=== PATIENT | female | born 1950 | race Caucasian/White ===

== ENCOUNTER 2025-05-07 08:03 | Inpatient (IN) | payer MEDICARE, SELFPAY ==
[2025-05-07] VITALS (14 sets, daily range): BP systolic 122–149; BP diastolic 55–88; PULSE 100–121; RESP 16–40; TEMP 36.4–36.8; O2SAT 97–100; BMI 37.8; BMI 35.2
--- NOTE | 2025-05-07 08:14 | EKG12_ITS ---
Test Reason : sob Blood Pressure : */* mmHG Vent. Rate : 113 BPM Atrial Rate : 113 BPM P-R Int : 156 ms QRS Dur : 104 ms QT Int : 308 ms P-R-T Axes : 67 12 154 degrees QTcB Int : [address] & T wave abnormality, consider lateral ischemia Abnormal ECG Confirmed by NEGRO LAIRD, DEREK ([id number]), continuity editor PARISH SINHA ([id number]) on 05/08/2025 1:06:52 PM Referred By: Confirmed By: DEREK TOM MD
--- NOTE | 2025-05-07 08:16 | ED.VIS.DYS ---
HPI History of Present Illness Chief Complaint: Shortness of Breath Narrative Narrative: 75-year-old female presents from [facility] with increasing shortness of breath. She states that she was admitted at [facility], she had a left hip surgery performed. She developed pneumonia. Since then, over the last 3 weeks she has had to wear her oxygen 2 L. Today, they had to bump it up to 4 L as she states she is having increased difficulty breathing. No fevers or chills, no cough. She states that approximately a month ago, they did a CAT scan of her chest and they found blockages in her heart. On review of her [facility] paperwork, she has a clot in the atrium as a complication of myocardial infarction. She states she takes Coumadin on a daily basis. She denies any history of COPD or CHF. PFS PFS Home Medications ?Medication ?Instructions ?Recorded ?Last Taken ?Type acetaminophen 325 mg capsule 650 mg PO Q4H PRN fever or pain 05/07/25 Unknown History acetaminophen 500 mg capsule 1,000 mg PO Q6H PRN fever or pain 05/07/25 Unknown History acetaminophen 650 mg rectal 650 mg WV Q4H PRN fever or pain 05/07/25 Unknown History suppository albuterol sulfate 2.5 mg/3 mL 2.5 mg continuous nebulization Q8H 05/07/25 Unknown History (0.083 %) solution for nebulization PRN shortness of breath or wheezing aluminum-mag hydroxide-simethicone 30 ml PO Q4H PRN indigestion 05/07/25 Unknown History 200 mg-200 mg-20 mg/5 mL oral susp (Antacid M) amlodipine 5 mg tablet 5 mg PO DAILY 05/07/25 Unknown History aspirin 81 mg capsule 81 mg PO DAILY 05/07/25 Unknown History atorvastatin 80 mg tablet (Lipitor) 80 mg PO QHS 05/07/25 Unknown History bisacodyl 10 mg rectal suppository 10 mg WV DAILY PRN constipation 05/07/25 Unknown History cholecalciferol (vitamin D3) 1,250 1,250 mcg PO SA 05/07/25 Unknown History mcg (50,000 unit) capsule cyanocobalamin (vitamin B-12) 1,000 mcg PO DAILY 05/07/25 Unknown History 1,000 mcg capsule dextrose 40 % oral gel (Glucose 15 g PO Q15M PRN hypoglycemia 05/07/25 Unknown History Gel) ezetimibe 10 mg tablet 10 mg PO DAILY 05/07/25 Unknown History furosemide 20 mg tablet (Lasix) 20 mg PO DAILY 05/07/25 Unknown History glucagon 1 mg injection kit 1 mg IM PRN PRN hypoglycemia 05/07/25 Unknown History guaifenesin 200 mg/5 mL oral liquid 400 mg PO Q4H PRN cough 05/07/25 Unknown History hydroxyzine HCl 25 mg tablet 25 mg PO Q6H PRN anxiety 05/07/25 Unknown History insulin glargine 100 unit/mL (3 32 unit subcut .QAM 05/07/25 Unknown History mL) subcutaneous pen (Lantus Solostar U-100 Insulin) insulin lispro 100 unit/mL 1 unit subcut ACHS sliding scale 05/07/25 Unknown History subcutaneous cartridge insulin lispro 100 unit/mL 3 unit subcut TID 05/07/25 Unknown History subcutaneous cartridge magnesium hydroxide 400 mg/5 mL 30 ml PO DAILY PRN constipation 05/07/25 Unknown History oral suspension (Milk of Magnesia) metoprolol tartrate 50 mg tablet 50 mg PO BID 05/07/25 Unknown History multivitamin with iron-mineral 1 tab PO DAILY 05/07/25 Unknown History ondansetron HCl 4 mg tablet 4 mg PO Q8H PRN nausea and vomiting 05/07/25 Unknown History oxycodone 5 mg capsule 5 mg PO Q6H PRN pain 05/07/25 Unknown History polyethylene glycol 3350 17 gram 17 g PO DAILY 05/07/25 Unknown History oral powder packet (Miralax) senna-docusate sodium capsule 1 cap PO BID 05/07/25 Unknown History sodium phosphates 19 gram-7 118 ml WV DAILY PRN constipation 05/07/25 Unknown History gram/118 mL enema (Auxab-Zp-Tng Enema) warfarin 1 mg tablet 1.5 mg PO DAILY 05/07/25 Unknown History Allergy/AdvReac Type Severity Reaction Status Date / Time Penicillins AdvReac Mild Nausea/Vom/ Verified 05/07/25 09:46 Diarrhea Social History Smoking Status: Never smoker ROS ROS ED ROS Narrative Review of systems is positive for increasing shortness of breath, gradual over the last 3 weeks worsening today. No fevers or chills. No cough. No exacerbating or alleviating factors. No nausea or vomiting. EXAM Physical Exam Narrative Exam Narrative: Afebrile. Vital signs noted. Positive tachypnea. Cardiovascular examination regular tachycardia. Positive wheezing bilaterally, expiratory. Abdomen soft and nontender with normoactive bowel sounds. Neurological examination nonfocal, nonlateralizing. Const Vital Signs: 05/07/25 08:04 05/07/25 08:09 05/07/25 08:24 Temperature 98.1 F Temperature Source Oral Pulse Rate 116 H 114 H Respiratory Rate 40 H 40 H Respiratory Effort Short of Breath Respiratory Pattern Tachypnea Normal Blood Pressure 149/81 H Blood Pressure Mean 103 Pulse Ox 97 Oxygen Delivery Method Nasal Cannula Nasal Cannula Oxygen Flow Rate (L/min) 4 4 05/07/25 08:52 05/07/25 09:00 05/07/25 09:45 Temperature Temperature Source Pulse Rate 102 H 109 H Respiratory Rate 32 H 16 Respiratory Effort Respiratory Pattern Blood Pressure 122/64 H 136/77 H Blood Pressure Mean 81 94 Pulse Ox 100 100 Oxygen Delivery Method Nasal Cannula Oxygen Flow Rate (L/min) MDM MDM MDM Narrative Medical decision making narrative: The differential diagnosis includes but not limited to COPD exacerbation versus CHF although patient does not have a history of this but she does have myocardial infarction. She may have a pulmonary embolism, however she is on warfarin currently. She may also have a pneumonia or pneumothorax. With her wheezing, she was given a DuoNeb aerosolized treatment, and chest x-ray obtained initially. EKG obtained and interpreted by myself independently as sinus tachycardia at 113 bpm without ectopy or acute ST changes. No STEMI. She does have slight/1 mm depression laterally, but states she is not having chest pain. I reviewed her laboratory work and she has a white count slightly elevated 11.4 with hemoglobin 10.9, platelet count normal at 219. INR is 1.7. In review of her medication list she only takes 1.5 mg daily. BUN of 17 and creatinine low at 0.66. Glucose elevated at 272 but she has a normal anion gap of 12 so I doubt diabetic ketoacidosis. BNP is elevated at 10,583. She was administered Lasix 40 mg intravenously. In review of her medication list again she usually takes 20 mg daily. Chest x-ray interpreted by myself independently does show mild CHF with left pleural effusion but no evidence of pneumothorax. I reviewed the radiology report which comments on multifocal atelectasis versus pneumonia. Hence, I do think that is probably more CHF than infectious pneumonia. Upon repeat examination at approximately 9:45 AM, she is less tachypneic and feels improved after the breathing treatment. She is satting at 100% on 4 L nasal cannula. She does not have an echocardiogram here. Given her elevated BNP, I do feel she requires admission. Patient will be discussed with the hospitalist. Patient was discussed with Dr. Kemp for admission to the PCU. She is in stable condition. History & Record Review Discussion w/independent historian: Patient Additional record(s) reviewed:: No prior records (No prior ED visit.) and Other ([facility] papers) Lab Data Attestation: I reviewed the patient's lab results. Labs: Laboratory Results - last 24 hr 05/07/25 08:50 WBC 11.4 H RBC 3.83 L Hgb 10.9 L Hct 36.0 L MCV 94.0 MCH 28.5 MCHC 30.3 L RDW Std Deviation 62.5 H RDW Coeff of Echo 18.2 H Plt Count 219 MPV 8.7 Immature Gran % (Auto) 0.300 Neut % (Auto) 89.8 H Lymph % (Auto) 5.3 L Weakley % (Auto) 4.0 Eos % (Auto) 0.2 Baso % (Auto) 0.4 Absolute Neuts (auto) 10.3 H Absolute Lymphs (auto) 0.61 L Nucleated RBC % 0 PT 20.1 H INR 1.7 Sodium 140 Potassium 4.7 Chloride 103 Carbon Dioxide 25.1 Anion Gap 12 BUN 17 Creatinine 0.66 L Estim Creat Clear Calc 63.31 Est GFR (MDRD) Non-Af 92 BUN/Creatinine Ratio 25.8 H Glucose 272 H Calcium 8.7 [place] [address] H Radiography Chest X-Ray - ED: 1 View, Read by ED Physician, Read by Radiologist, CHF and Left Effusion Diagnostic Testing: Clinical Impression(s) from Imaging Studies Chest X-Ray 05/07/25 08:54 IMPRESSION: Multifocal lung disease may be atelectasis or pneumonia. Suspect a left pleural effusion Reading Location: [id number] Discharge Plan Triage Chief Complaint: Shortness of Breath ED Provider: Nas Schultz Dx/Rx/DC Orders Clinical Impression: CHF (congestive heart failure), Dyspnea, Increased oxygen demand Prescriptions: No Action ondansetron HCl 4 mg tablet 4 mg PO Q8H PRN (Reason: nausea and vomiting) hydroxyzine HCl 25 mg tablet 25 mg PO Q6H PRN (Reason: anxiety) albuterol sulfate 2.5 mg /3 mL (0.083 %) solution for nebulization 2.5 mg continuous nebulization Q8H PRN (Reason: shortness of breath or wheezing) senna-docusate sodium Capsule 1 cap PO BID warfarin 1 mg tablet 1.5 mg PO DAILY metoprolol tartrate 50 mg tablet 50 mg PO BID atorvastatin [Lipitor] 80 mg tablet 80 mg PO QHS acetaminophen 500 mg capsule 1,000 mg PO Q6H PRN (Reason: fever or pain) insulin lispro 100 unit/mL cartridge 3 unit subcut TID insulin lispro 100 unit/mL cartridge 1 unit subcut ACHS insulin glargine [Lantus Solostar U-100 Insulin] 100 unit/mL (3 mL) insulin pen 32 unit subcut .QAM cyanocobalamin (vitamin B-12) 1,000 mcg capsule 1,000 mcg PO DAILY polyethylene glycol 3350 [Miralax] 17 gram powder in packet 17 g PO DAILY multivitamin with iron-mineral Tablet 1 tab PO DAILY ezetimibe 10 mg tablet 10 mg PO DAILY cholecalciferol (vitamin D3) 1,250 mcg (50,000 unit) capsule 1,250 mcg PO SA aspirin 81 mg capsule 81 mg PO DAILY amlodipine 5 mg tablet 5 mg PO DAILY furosemide [Lasix] 20 mg tablet 20 mg PO DAILY oxycodone 5 mg capsule 5 mg PO Q6H PRN (Reason: pain) alum-mag hydroxide-simeth [Antacid M] 200-200-20 mg/5 mL suspension 30 ml PO Q4H PRN (Reason: indigestion) guaifenesin 200 mg/5 mL liquid 400 mg PO Q4H PRN (Reason: cough) magnesium hydroxide [Milk of Magnesia] 400 mg/5 mL suspension 30 ml PO DAILY PRN (Reason: constipation) dextrose [Glucose Gel] 40 % gel 15 g PO Q15M PRN (Reason: hypoglycemia) Rx Instructions: until symptoms of low blood sugar are controlled glucagon 1 mg kit 1 mg IM PRN PRN (Reason: hypoglycemia) acetaminophen 325 mg capsule 650 mg PO Q4H PRN (Reason: fever or pain) bisacodyl 10 mg suppository 10 mg WV DAILY PRN (Reason: constipation) Txvqa-[id number]-Wmb Enema 19-7 gram/118 mL enema 118 ml WV DAILY PRN (Reason: constipation) acetaminophen 650 mg suppository 650 mg WV Q4H PRN (Reason: fever or pain) Primary Care Provider: Jillian Tomlinson Referrals: Jillian Tomlinson MD [Primary Care Provider, Geriatrics] Print Language: Colombian
--- OUTSIDE RECORDS SUMMARY | 2025-05-07 08:31 | XMS RPT_ITS | CCD ---
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 Name Role Phone Unavailable Unavailable Unavailable Lucian Mott Unavailable Unavailable Lucian Mott Unavailable Unavailable Jaime Shine Primary Care Provider SYSTEM, PROVIDER NOT IN Attending UnavailJAIME Martinez Primary Care Unavailable Jaime Shine MD Primary Care Provider Enedina James CNP Primary Care Provid er NO, PHYSICIAN Primary Care Unavailable AMBROCIO ALEXANDER Attending Unavailable ENEDINA JAMES Primary Care Unavail able JAIME SHINE Primary Care Unavailable VAISHALI MENDEZ Referring Unavailab Emir Bo MD Primary Care Provider SELF, SELF Referring Unavailable EMIR OROZCO Attending Unavailable EMIR OROZCO Primary Care Unavailable No, Physician Primary Care Provider Unavailabl CHRISTIANO Padilla Attending Unavailable LAURA, PHYSICIAN Primary Care Unavailable CHRISTIANO FLETCHER Attending Unavailable ENEDINA JAMES Primary Care Unavail able ELHAM CONNORS Admitting Unavailable EMIR CADE Referring Unavailable RAMIRO TURPIN Attending Unavailable TOBIAS DIOR Consulting Unavailable Jillian Kc Attending Unavailable Jillian Kc Attending Unavailable Allergies Allergy Classification Reported Allergen(s) Allergy Type Date of Onset Reaction(s) Facility (16 sources) Penicillins; Translations: [PENICILLINS] Propensity to adverse reactions to drug 0 GI Intolerance, Dyspepsia [facility] (15 sources) POISON RHONDA EXTRACT; Translations: [POISON RHONDA EXTRACT] Drug Allergy 0 [facility] (14 sources) strawberry allergenic extract; Translations: [STRAWBERRY] Drug Allergy 0 [facility] (10 sources) Poison [place] Extract; Translations: [POISON [place] EXTRACT] Propensity to adverse reactions to drug 2 Unknown [facility] (1 source) [place]x Propensity to adverse reactions to drug 4 [facility] (1 source) [place] Propensity to adverse reactions to drug 0 [facility] (1 source) Extract Of Poison [place] Propensity to adverse reactions to drug 2 Rash [facility] Medications Current Medications Medication Drug Class(es) Dates Sig (Normalized) Sig (Original) acetaminophen 250 mg / aspirin 250 mg / caffeine 65 mg oral tablet (7 sources) Platelet Aggregation Inhibitor, Nonsteroidal Anti-inflammatory Drug, Central Nervous System Stimulant, Methylxanthine take 1 tablet by mouth every six hours as needed for pain aspirin-acetamin ophen-caffeine (EXCEDRIN MIGRAINE) 250-250-65 mg per tablet Take 1 (one) tablet by mouth every 6 (six) hours as needed for pain . Active amLODIPine 10 mg oral tablet (16 sources) Dihydropyridine Calcium Channel Hanna Start: 06-07-2022 End: 06-08-2022 amLODIPine (NORVASC) tablet 5 mg Start: 04-18-2020 End: 05-18-2020 take 1 tablet by mouth once daily amLODIPine 10 MG tablet Indications: Essential hypertension Take 1 tablet by mouth daily. 90 tablet 3 03/31/2024 Active Start: 04-17-2020 End: 04-18-2020 take 10 mg by mouth once daily 10 mg, Oral, Daily, [facility]ir [facility] dose on Thu04/17/20 at 2230 End: 03-31-2024 take 4 tablets by mouth once daily amLODIPine (Norvasc) 2.5 MG tablet Take 4 tablets by mouth daily. 03/31/2024 Discontinued (Reorder) aspirin 325 mg oral tablet (6 sources) Platelet Aggregation Inhibitor, Nonsteroidal Anti-inflammatory Drug Start: 06-08-2022 End: 07-09-2022 take 1 tablet by mouth once daily aspirin 325 MG tablet Take 1 (one) tablet (325 mg total) by mouth daily Start: 06/09/22. 30 tablet 1 06/09/2022 07/09/2022 Active Start: 06-07-2022 End: 06-07-2022 take 81 mg by mouth once daily 81 mg, Oral, Daily, [facility]ir [facility] dose on 06/07/22 at 0900 DO NOT CRUSH OR CHEW. Start: 06-06-2022 End: 06-06-2022 aspirin chewable tablet 324 mg Start: 04-18-2020 End: 04-18-2020 take 81 mg by mouth once daily 81 mg, Oral, Daily, Fir [facility] dose on 04/18/20 at 1800 DO NOT CRUSH OR CHEW. atorvastatin 40 mg oral tablet (4 sources) HMG-CoA Reductase Inhibitor Start: 06-06-2022 End: 07-08-2022 take 1 tablet by mouth once daily atorvastatin (LIPITOR) 40 MG tablet Take 1 (one) tablet (40 mg total) by mouth nightly . 30 tablet 1 06/08/2022 Active carvedilol 25 mg oral tablet (17 sources) alpha-Adrenergic Hanna, beta-Adrenergic Hanna Start: 03-31-2024 End: 03-31-2024 take 1 tablet by mouth twice daily carveDILOL 25 MG tablet Indications: Essential hypertension Take 1 tablet by mouth 2 times daily. 180 tablet 3 03/31/2024 Active Start: 06-07-2022 End: 06-08-2022 take 6.25 mg by mouth twice daily at mealtime 6.25 mg, Oral, 2 times daily, First dose on 06/07/22 at 0900 Give carvedilol with food to reduce risk of hypotension / dizziness. Separate from admin of NGOZI inhibitors by two hours. Start: 04-18-2020 End: 05-29-2020 take 1 tablet by mouth twice daily carvediloL (COREG) 12.5 MG tablet Take 1 (one) tablet (12.5 mg total) by mouth 2 (two) times a day . 60 tablet 0 04/18/2020 05/29/2020 Discontinued (Error) Start: 04-17-2020 carvediloL (CO REG) tablet 25 mg cephalexin 500 mg oral capsule (3 sources) Cephalosporin Antibacterial Start: 06-08-2022 End: 06-11-2022 take 1 capsule by mouth every eight hours cephALEXin (KEFLEX) 500 MG capsule Take 1 (one) capsule (500 mg total) by mouth every 8 (eight) hours for 3 days . 9 capsule 0 06/08/2022 06/11/2022 Active cholecalciferol 0.05 mg oral tablet (10 sources) Vitamin D cholecalciferol, vitamin D3, 50 mcg (2,000 unit) Tab Take 1 (one) tablet (2,000 Units total) by mouth . Active take 1 tablet by mouth once linette y cholecalciferol 50 MCG (2000 UNIT) tablet Take 1 tablet by mouth daily. Active cloNIDine hydrochloride 0.1 mg oral tablet (12 sources) Central alpha-2 Adrenergic Agonist Start: 06-08-2022 End: 03-31-2024 take 1 tablet by mouth four times daily cloNIDine 0.1 MG tablet Indications: Essential hypertension Take 1 tablet by mouth 4 times daily. 360 tablet 3 03/31/2024 Active ezetimibe 10 mg oral tablet (8 sources) Dietary Cholesterol Absorption Inhibitor Start: 03-31-2024 End: 03-31-2024 take 1 tablet by mouth once daily Ezetimibe 10 MG tablet Indications: Mixed hyperlipidemia Take 1 tablet by mouth daily. 90 tablet 3 03/31/2024 Active hydroCHLOROthiazide 12.5 mg / lisinopril 20 mg oral tablet (14 sources) Thiazide Diuretic, Angiotensin Converting Enzyme Inhibitor Start: 05-29-2020 End: 03-31-2024 take 1 tablet by mouth once daily lisinopril-hydrochl orothiazide 20-12.5 MG per tablet Indications: Essential hypertension Take 1 tablet by mouth daily. 90 tablet 3 03/31/2024 Active End: 05-29-2020 take 1 tablet by mouth twice daily lisinopriL-hydrochlorothiazide (PRINZIDE,ZESTORETIC) 20-12.5 mg per tablet Take 1 tablet by mouth 2 (two) times a day . 0 05/29/2020 Discontinued (Dose adjustment) ibuprofen 200 mg oral tablet (9 sources) Nonsteroidal Anti-inflammatory Drug take 2 tablets by mouth every six hours as needed for pain ibuprofen (ADVIL,MOTRIN) 200 MG tablet Take 2 (two) tablets (400 mg total) by mouth every 6 (six) hours as needed for pain . Active 3 ml insulin isophane, human 70 unt/ml / insulin, regular, human 30 unt/ml pen injector (12 sources) Insulin Start: 024 inject 6 [IU] by subcutaneous injection before breakfast insulin NPH and regular human (NovoLIN 70-30 FlexPen U-100) 100 unit/mL (70-30) InPn Indications: Well controlled type 2 diabetes mellitus (HCC) Inject under the skin 6 units before breakfast and 4 units before dinner . 15 mL 11 03/10/2024 Active Start: 04-09-2023 insulin NPH an d regular human 100 unit/mL (70-30) InPn Take 12 units before breakfast and 8 units before dinner. Needs Reli-on pens . 15 mL 5 04/09/2023 Active Start: 02-06-2023 End: 04-09-2023 insulin NPH and regular colten n 100 unit/mL (70-30) InPn Take 12 units before breakfast and 8 units before dinner. Needs Reli-on pens . 15 mL 5 02/06/2023 04/09/2023 Discontinued (Reorder (Suppress CancelRx Message to Pharmacy)) Start: 02-06-2023 insulin NPH an d regular human 100 unit/mL (70-30) InPn Take 12 units before breakfast and 8 units before dinner. Needs Reli-on pens . 15 mL 5 02/06/2023 Active Start: 11-25-2022 End: 02-06-2023 insulin NPH and regular colten n 100 unit/mL (70-30) InPn Take 6 units before breakfast and 4 units before dinner. Needs Reli-on pens . 15 mL 5 11/25/2022 02/06/2023 Discontinued (Reorder (Suppress CancelRx Message to Pharmacy)) Start: 11-25-2022 insulin NPH an d regular human 100 unit/mL (70-30) InPn Take 6 units before breakfast and 4 units before dinner. Needs Reli-on pens . 15 mL 5 11/25/2022 Active Start: 06-08-2022 insulin NPH an d regular human (NovoLIN 70-30 FlexPen U-100) 100 unit/mL (70-30) InPn Inject 20 units before breakfast and 16 units before dinner. Needs Reli-on 70/30 pens . 15 mL 5 06/08/2022 Active levETIRAcetam 500 mg oral tablet (12 sources) Start: 06-07-2022 End: 03-31-2024 take 1 tablet by mouth twice daily levETIRAcetam 500 MG tablet Indications: Seizure disorder Take 1 tablet by mouth 2 times daily. 60 tablet 03/31/2024 Active metFORMIN hydrochloride 1000 mg oral tablet (15 sources) Biguanide Start: 06-07-2022 End: 06-08-2022 take 30 mL by mouth twice daily at mealtime 1,000 mg, Oral, 2 times daily with meals, First dose on 06/07/22 at 0800 Note: Guidelines recommend that metformin be held for 48 hours after use of iodinated contrast media (IVP Dye) in patients with an eGFR less than 30 ml/min/1.73m2, with a history of hepatic disease, alcoholism or heart failure, or in patients who will receive intra-arterial iodinated contrast. Start: 04-18-2020 End: 05-11-2025 take 1 tablet by mouth twice daily at mealtime metFORMIN (GLUCOPHAGE) 1000 MG tablet Take 1 (one) tablet (1,000 mg total) by mouth 2 (two) times a day with meals . 180 tablet 3 05/16/2024 05/11/2025 Active take 2 tablets by mo uth twice daily at mealtime metFORMIN 500 MG tablet Take 2 tablets by mouth 2 times daily with meals. Active Multiple Vitamin (Multi-Vitamin) tablet (1 source) take 1 tablet by mouth once daily Multiple Vitamin (Multi-Vitamin) tablet Take 1 tablet by mouth daily. Active multivitamin (THERAGRAN) per tablet (11 sources) take 1 tablet by mouth once daily multivitamin (THERAGRAN) per tablet Take 1 (one) tablet by mouth daily (Women's 50+ with soy) . Active take 1 tablet by mouth once linette y multivitamin (THERAGRAN) per tablet Take 1 (one) tablet by mouth daily (Women's 50+ with soy) . 0 Active take 1 tablet by mouth once linette y multivitamin (THERAGRAN) per tablet Take 1 (one) tablet by mouth daily . 0 Active take 1 tablet by mouth once linette y multivitamin (THERAGRAN) per tablet Take 1 (one) tablet by mouth daily . 0 take 1 tablet by mouth once linette y multivitamin (THERAGRAN) per tablet Take 1 tablet by mouth daily . 0 Active Completed/Discontinued Medications Medication Drug Class(es) Dates Sig (Normalized) Sig (Original) acetaminophen 325 mg oral tablet (11 sources) Start: 06-06-2022 End: 06-08-2022 take 1 tablet by mouth every four hours as needed for pain and headache 650 mg, Oral, Every 4 hours PRN, mild pain, fever 100.4 F or greater, headaches, Starting on Thu06/06/22 at 2134 take 1 tablet by tacho th every six hours as needed acetaminophen (TYLENOL) 325 MG tablet Ta ke 1 (one) tablet (325 mg total) by mouth every 6 (six) hours as needed . Active take 500 mg by mouth every six hours as needed ACETAMINOPHEN ORAL Take 500 mg by mouth every 6 (six) hours as needed . 0 Active acetaminophen 325 mg / oxyCODONE hydrochloride 5 mg oral tablet (1 source) Opioid Agonist Start: 06-06-2022 End: 06-08-2022 take 1-2 tablets by mouth every four hours as needed 1-2 tablet, Oral, Every 4 hours PRN (may repeat), moderate to severe pain, Starting on Thu06/06/22 at 2134 Initiate with 1 tablet oral every 4 hours prn moderate to severe pain. For unrelieved pain, may repeat 1 tablet within 60 minutes of initial dose. If pain is RELIEVED after repeat dose, change to two tablets of 5/325 mg every 4 hours prn moderate to severe pain. If pain is UNrelieved after repeat dose, or patient requires dose reduction, call physician. albuterol 0.833 mg/ml / ipratropium bromide 0.167 mg/ml inhalant solution (1 source) Anticholinergic, beta2-Adrenergic Agonist Start: 04-17-2020 End: 04-18-2020 take 3 mL by inhalation every two hours as needed 3 mL, Inhalation, Every 2 hour PRN (RT), wheezing, shortness of breath, Starting Tu04/17/20 at 2149 aluminum hydroxide 40 mg/ml / magnesium hydroxide 40 mg/ml / simethicone 4 mg/ml oral suspension (1 source) Start: 06-06-2022 End: 06-08-2022 take 30 mL by mouth every four hours as needed 30 mL, Oral, Every 4 hours PRN, indigestion, Starting on Thu06/06/22 at 2134 apixaban 5 mg oral tablet (2 sources) Factor Xa Inhibitor Start: 04-18-2020 End: 05-29-2020 take 1 tablet by mouth twice daily apixaban (ELIQUIS) 5 mg Tab Take 1 (one) tablet (5 mg total) by mouth 2 (two) times a day . 60 tablet 11 05/18/2020 05/29/2020 Discontinued bisacodyl 10 mg rectal suppository (1 source) Stimulant Laxative Start: 06-07-2022 End: 06-08-2022 take 10 mg rectal route once daily as needed for constipation 10 mg, Rectal, Daily PRN, constipation, Starting on 06/07/22 at 0900 Try oral medications first for constipation. &nbs p;Try rectal medication if oral meds are ineffective, not tolerated, or not ordered. ceFAZolin 1000 mg injection (1 source) Cephalosporin Antibacterial Start: 06-07-2022 End: 06-08-2022 take 1000 mg intravenously every twelve hours ceFAZolin (ANCEF) IVPB 1 g (premix) cefTRIAXone (ROCEPHIN) 2000 mg in sodium chloride (NS) 0.9% 50 mL MBP (1 source) Start: 06-06-2022 End: 06-06-2022 cefTRIAXone (ROCEPHIN) 2000 mg in sodium chloride (NS) 0.9% 50 mL MBP clopidogrel 75 mg oral tablet (1 source) P2Y12 Platelet Inhibitor Start: 06-07-2022 End: 06-07-2022 clopidogreL (PLAVIX) tablet 75 mg 25 ml dilTIAZem hydrochloride 5 mg/ml injection (1 source) Calcium Channel Hanna Start: 04-17-2020 End: 04-17-2020 diltiazem (CARDIZEM) injection 20.5 mg docusate sodium 50 mg / sennosides, jail 8.6 mg oral tablet (1 source) Start: 06-06-2022 End: 06-08-2022 take 1 tablet by mouth twice daily 1 tablet, Oral, 2 times daily, First dose on Thu06/06/22 at 2135 NOT for abdominal surgery patients. Ho ld for loose stools. Do Not Crush or Chew if administering orally due to bitter taste. May be crushed if given via tube. 0.4 ml enoxaparin sodium 100 mg/ml prefilled syringe (1 source) Low Molecular Weight Heparin Start: 06-07-2022 End: 06-08-2022 enoxaparin (LOVENOX) syringe 40 mg glimepiride 4 mg oral tablet (5 sources) Sulfonylurea Start: 04-18-2020 End: 06-08-2022 take 4 mg by mouth twice daily 4 mg, Oral, 2 times daily, First dose on Thu06/06/22 at 2230 500 ml glucose 50 mg/ml / potassium chloride 0.02 meq/ml / sodium chloride 4.5 mg/ml injection (1 source) Start: 06-06-2022 End: 06-07-2022 125 mL/hr, Intravenous, Continuous PRN, MAINTENANCE IV Fluid (once BG is less than 250 mg/dL) AND Potassium is LESS than 5, Starting on Thu06/06/22 at 2134 Discontinue INITIAL IV Fluid after starting this MAINTENANCE IV Fluid. Do NOT hold infusion for elevated blood glucose without contacting physician. Check with physician if patient is ESRD. 1 ml heparin sodium, porcine 5000 unt/ml injection (1 source) Unfractionated Heparin, Anti-coagulant Start: 04-17-2020 End: 04-18-2020 inject 5000 [IU] by subcutaneous injection every eight hours 5,000 Units, Subcutaneous, Every 8 hours scheduled, First dose on Thu04/17/20 at 2200 Notify physician if patient refuses. hydrALAZINE hydrochloride 25 mg oral tablet (4 sources) Arteriolar Vasodilator Start: 05-29-2020 End: 06-08-2022 take 1 tablet by mouth three times daily hydrALAZINE (APRESOLINE) 25 MG tablet Take 1 (one) tablet (25 mg total) by mouth 3 (three) times a day . 270 tablet 3 05/29/2020 06/08/2022 Discontinued (Stop Taking at Discharge) Start: 04-17-2020 End: 04-18-2020 take 10 mg intravenous route every six hours as needed 10 mg, Intravenous, Every 6 hours PRN, SBP > 160, Starting Thu04/17/20 at 2149 insulin glargine 100 unt/ml injectable solution (5 sources) Insulin Analog Start: 06-07-2022 End: 06-08-2022 insulin glargine (LANTUS) injection 24 Units Start: 06-07-2022 End: 06-07-2022 insulin glargine (LANTUS) injection 16 Units End: 06-08-2022 inject 20 [IU] by subcutaneous injection once daily insulin glargine (LANTUS) 100 unit/mL injection Inject 20 (twenty) Units under the skin nightly . 0 06/08/2022 Discontinued (Stop Taking at Discharge) insulin lispro 100 unt/ml injectable solution (6 sources) Insulin Analog Start: 06-07-2022 End: 06-08-2022 insulin lispro (AdmeLOG,HumaLOG) injection 0-15 Units Start: 04-18-2020 End: 04-18-2020 inject 1 dose by subcutaneous injection three times daily before mealtime 0-30 Units, Subcutaneous, 3 times daily before meals, First dose on Thu04/18/20 at 0730 Dose should be given 10-15 minutes before a meal. If poor oral intake, nausea or blood glucose value < 80 before meal, give of the dose (rounded up to nearest unit) immediately after meal completed. If patient skipping meal, hold base prandial dose and continue to use corrective insulin as ordered. Once diet resumed, total base prandial + corrective doses may be given. Prandial Insulin Dosing Method: NO Prandial Dose - Corrective Scale ONLY Corrective Insulin Regimen (select desired scale to cover BG result): Normal Sensitivity Scale For Downtime Calculator, use: Insulin SC MEALtime PREprandial Start: 04-17-2020 End: 04-18-2020 inject 1 dose by subcutaneous injection once daily 0-15 Units, Subcutaneous, At bedtime, First dose on Thu04/17/20 at 2150 For Nightly Insulin Dose Coverage, use: CORRECTIVE (Only) for BG greater than 300 Nightly CORRECTIVE Dose Method: Specific Corrective Dose Nightly Specific CORRECTIVE dose (units of insulin): 2 For Downtime Calculator, use: Insulin SC NIGHTtime 100 ml insulin, regular, human 1 unt/ml injection (2 sources) Insulin Start: 06-06-2022 End: 06-07-2022 take 0.1-30 [IU] intravenously every hour, then take 0.1-30 mL intravenously every hour 0.1-30 Units/hr (0.1-30 mL/hr), Intravenous, Titrated, Starting on Thu06/06/22 at 2135 Titrate insulin IV per MAR calculator to coincide with the scheduled point of care glucose results. For Downtime Calculator, use: Insulin Infusion DKA Start: 06-06-2022 End: 06-06-2022 insulin regular (HumuLIN R, NovoLIN R) injection 8 Units iopamidoL (ISOVUE-370) 370 mg iodine /mL (76 %) injection 75 mL (1 source) Start: 06-06-2022 End: 06-06-2022 iopamidoL (ISOVUE-370) 370 mg iodine /mL (76 %) injection 75 mL labetaloL (NORMODYNE) injection 10 mg (1 source) Start: 06-06-2022 End: 06-08-2022 take 10 mg intravenously every two hours as needed labetaloL (NORMODYNE) injection 10 mg lisinopril 40 mg oral tablet (2 sources) Angiotensin Converting Enzyme Inhibitor Start: 04-18-2020 End: 05-29-2020 take 1 tablet by mouth once daily lisinopriL (PRINIVIL,ZESTRIL) 40 MG tablet Take 1 (one) tablet (40 mg total) by mouth daily . 30 tablet 0 04/18/2020 05/29/2020 Discontinued (Patient's Request) lisinopriL (PRINIVIL,ZESTRIL) 20 mg, hydroCHLOROthiazide (HYDRODIURIL) 12.5 mg COMBO (1 source) Start: 06-07-2022 End: 06-08-2022 lisinopriL (PRINIVIL,ZESTRIL) 20 mg, hydroCHLOROthiazide (HYDRODIURIL) 12.5 mg COMBO magnesium hydroxide 80 mg/ml oral suspension (1 source) Start: 06-06-2022 End: 06-08-2022 take 2400 mg by mouth once daily as needed for constipation 2,400 mg (30 mL), Oral, Daily PRN, constipation, Starting on Thu06/06/22 at 2134 If no bowel movement in 24 hours after Sennosides (SENNA) administration. 50 ml magnesium sulfate 40 mg/ml injection (1 source) Start: 04-18-2020 End: 04-18-2020 magnesium sulfate 2 g in sterile water (SW) 50 mL IVPB melatonin 5 mg oral tablet (1 source) Start: 06-06-2022 End: 06-08-2022 take 5 mg by mouth once daily as needed for sleep 5 mg, Oral, Nightly PRN, Sleep, Starting on Thu06/06/22 at 2134 If still awake in 1 hour proceed to trazodone (Desyrel) metoprolol tartrate 25 mg oral tablet (1 source) beta-Adrenergi c Hanna Start: 04-17-2020 End: 04-18-2020 take 25 mg by mouth twice daily 25 mg, Oral, 2 times daily, First dose on Thu04/17/20 at 2230 1 ml morphine sulfate 2 mg/ml cartridge (1 source) Opioid Agonist Start: 06-06-2022 End: 06-08-2022 take 2-4 mg intravenously every three hours as needed 2-4 mg, Intravenous, Every 3 hours PRN (may repeat), moderate to severe pain, Starting on Thu06/06/22 at 2134 Initiate with 2 mg IV every 3 hours prn moderate to severe pain. For unrelieved pain, may repeat 2 mg within 30 minutes of initial dose. If pain is RELIEVED after repeat dose, change to 4 mg every 3 hours prn moderate to severe pain. If pain is UNrelieved after repeat dose, or patient requires dose reduction, call physician. May use IV for breakthrough pain or if unable to tolerate enteral routes. multivitamin (THERAGRAN) per tablet 1 tablet (1 source) Start: 06-07-2022 End: 06-08-2022 take 1 tablet by mouth once daily 1 tablet, Oral, Daily, First dose on 06/07/22 at 0900 naloxone (NARCAN) injection 0.1 mg (1 source) Start: 06-06-2022 End: 06-08-2022 naloxone (NARCAN) injection 0.1 mg nitroglycerin 0.4 mg sublingual tablet (1 source) Nitrate Vasodilator Start: 06-06-2022 End: 06-08-2022 0.4 mg, Sublingual, Every 5 min PRN, chest pain, Starting on Thu06/06/22 at 2134 For chest pain. May give up to 3 doses. Call physician for chest pain unrelieved by Nitroglycerin, or recurrent chest pain. DO NOT CRUSH OR CHEW. 2 ml ondansetron 2 mg/ml injection (1 source) Serotonin-3 Receptor Antagonist Start: 04-17-2020 End: 04-18-2020 take 4 mg intravenous route every six hours as needed 4 mg, Intravenous, Every 6 hours PRN, nausea, vomiting, Starting 04/17/20 at 2149 ondansetron (ZOFRAN-ODT) disintegrating tablet 4 mg (1 source) Start: 06-06-2022 End: 06-08-2022 take 1 tablet by mouth every six hours as needed for nausea and vomiting ondansetron (ZOFRAN-ODT) disintegrating tablet 4 mg perflutren lipid microspheres (DEFINITY) 0.143 mg/mL solution 0-10 mL of mixture (1 source) Start: 04-17-2020 End: 04-18-2020 0-10 mL of mixture, Intravenous, Once in imaging, contrast, IF suboptimal echo, Starting 04/17/20 at 2149, For 48 hours Prepare syringe by withdrawing 1.3 mL of perflutren (DEFINITY) from the 2ml vial. Further dilute the 1.3 mL of perflutren with Sodium Chloride (NS) 0.9% to total volume of 10 ml. Chart total ML OF MIXTURE given to patient. potassium bicarbonate 25 meq effervescent oral tablet (1 source) Start: 04-17-2020 End: 04-17-2020 potassium bicarbonate (K-LYTE) 25 MEQ disintegrating tablet 50 mEq microencapsulated potassium chloride 20 meq extended release oral tablet (4 sources) Start: 06-08-2022 End: 06-08-2022 potassium chloride SA (K-DUR,KLOR-CON) CR tablet 20 mEq Start: 06-06-2022 End: 06-07-2022 20 mEq, Intravenous, at 100 mL/hr, Every 1 hour if indicated in MAR calculator, First dose on Thu06/06/22 at 2200 DKA Potassium Corrective Scale for Potassium LESS THAN 4 Check with physician if patient is ESRD. VESICANT Start: 04-18-2020 End: 04-18-2020 potassium chloride SA (K-DUR ,KLOR-CON) CR tablet 40 mEq Start: 04-17-2020 End: 04-17-2020 potassium chloride SA (K-DUR ,KLOR-CON) CR tablet 20 mEq 1000 ml potassium chloride 0.02 meq/ml / sodium chloride 4.5 mg/ml injection (1 source) Start: 06-06-2022 End: 06-07-2022 take 250 mL intravenously every hour 250 mL/hr, Intravenous, Continuous, Starting on Thu06/06/22 at 2135, For 48 hours When blood glucose LESS than 250 mg/dL: Discontinue this INITIAL IV fluid AND switch to MAINTENANCE IV fluid sennosides, jail 8.6 mg oral tablet (1 source) Start: 06-06-2022 End: 06-08-2022 take 1 tablet by mouth twice daily as needed for constipation 8.6 mg (1 tablet), Oral, 2 times daily PRN, constipation, Starting on Thu06/06/22 at 2134 Sodium Chloride (4 sources) Start: 06-06-2022 End: 06-08-2022 sodium chloride (PF) (NS) flush 5 mL Start: 06-06-2022 End: 06-07-2022 sodium chloride 0.9% (NS) Start: 06-06-2022 End: 06-06-2022 sodium chloride 0.9% (NS) marylin augustin 500 mL Start: 04-17-2020 End: 04-18-2020 sodium chloride 0.9% (NS) traZODone hydrochloride 50 mg oral tablet (1 source) Serotonin Reuptake Inhibitor Start: 06-06-2022 End: 06-08-2022 take 50 mg by mouth once daily as needed for sleep 50 mg, Oral, Nightly PRN, sleep, Starting on Thu06/06/22 at 2134 To be administered 1 hour after melatonin if still awake. May repeat x 1 dose in 30 minutes if still awake. Problems Active Problems Problem Classification Problem Date Documented Da te Episodic/Chronic Acute cerebrovascular disease (2 sources) Ischemic stroke; Translations: [Cerebral infarction, unspecified] Chronic Diabetes mellitus with complications (16 sources) Type 2 diabetes mellitus; Translations: [Type 2 diabetes mellitus with hyperglycemia] Onset: 05-29-2020 Resolved: 03-31-2024 Chronic Diabetes mellitus without complication (20 sources) Type 2 diabetes mellitus without complication; Translations: [Diabetes mellitus] Onset: 03-31-2024 Resolved: 03-31-2024 05-29-2020 Chronic Diabetes mellitus without complication (1 source) Hyperglycemia; Translations: [Hyperglycemia, unspecified] Episodic Disorders of lipid metabolism (4 sources) Mixed hyperlipidemia; Translations: [Mixed hyperlipidemia] Onset: 03-31-2024 03-31-2024 Chronic Epilepsy; convulsions (15 sources) Localization-relate d epilepsy; 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, not intractable, without status epilepticus] Onset: 06-06-2022 Resolved: 03-31-2024 Chronic Essential hypertension (19 sources) Hypertensive disorder; Translations: [Essential hypertension] Onset: 03-31-2024 Resolved: 03-31-2024 05-29-2020 Chronic Fluid and electrolyte disorders (1 source) Hypokalemia; Translations: [Hypokalemia] Episodic Fracture of neck of femur (hip) (1 source) Fracture of unspecified part of neck of left femur, initial encounter for closed fracture; Translations: [Closed displaced fracture of left femoral neck (HCC)] Onset: 04-08-2025 Episodic Hypertension with complications and secondary hypertension (4 sources) Hypertensive urgency ; Translations: [Hypertensive urgency] Onset: 04-17-2020 04-17-2020 Chronic Other aftercare (2 sources) emt intermediate (current) use of insulin; Translations: [detention (current) use of insulin] Onset: 05-29-2020 Episodic Other and ill-defined heart disease (1 source) Intracardiac thrombosis, not elsewhere classified; 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] Onset: 04-14-2025 Chronic Other and unspecified benign neoplasm (13 sources) Neoplasm of meninges; 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, unspecified] Onset: 06-08-2022 Resolved: 03-31-2024 Chronic Other and unspecified benign neoplasm (2 sources) Benign neoplasm of meninges, unspecified; 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, unspecified] Onset: 03-31-2024 Chronic Other circulatory disease (2 sources) Elevated blood-pressure reading, without diagnosis of hypertension; Translations: [Elevated blood-pressure reading, without diagnosis of hypertension] Onset: 02-17-2024 Episodic Other endocrine disorders (7 sources) Hypoglycemia; Translations: [Hypoglycemia, unspecified] Onset: 11-21-2022 Resolved: 03-31-2024 11-21-2022 Chronic Other nutritional; endocrine; and metabolic disorders (12 sources) Obesity; Translations: [Obesity, unspecified] Onset: 03-31-2024 05-29-2020 Chronic Past or Other Problems Problem Classification Problem Date Documented Da te Episodic/Chronic Cardiac dysrhythmias (13 sources) Tachycardia; Translations: [Tachycardia, unspecified] Onset: 05-29-2020 Resolved: 03-31-2024 05-29-2020 Episodic Urinary tract infections (11 sources) Acute urinary tract infection; Translations: [Urinary tract infection, site not specified] Onset: 06-06-2022 Episodic Results Test Name Value Interpretation Reference Range Facility Basic Metabolic Profile (BMP )on 04-25-2025 BUN/CRE 65.5 RATIO High 04-[address] [facility] Comment on above: Order Comment: 207.1 Performed By: #### L 501.5200, L100.0500, L500.2500, L300.3900 #### [facility] [address] [place], [address] Calcium [Mass/Vol] 8.4 mg/dL Normal 7.6-11.0 [facility] Comment on above: Order Comment: 207.1 Performed By: #### L 501.5200, L100.0500, L500.2500, L300.3900 #### [facility] [address] [place], [address] Chloride [Moles/Vol] 100 mmol/L Normal 98-108 [facility] Comment on above: Order Comment: 207.1 Performed By: #### L 501.5200, L100.0500, L500.2500, L300.3900 #### [facility] [address] [place], [address] CO2 [Moles/Vol] 23.4 mmol/L Normal 21.0-32.[address] [facility] Comment on above: Order Comment: 207.1 Performed By: #### L 501.5200, L100.0500, L500.2500, L300.3900 #### [facility] [address] [place], [address] Creatinine [Mass/Vol] 0.81 mg/dL Normal 0.70-1.[address] [facility] Comment on above: Order Comment: 207.1 Performed By: #### L 501.5200, L100.0500, L500.2500, L300.3900 #### [facility] [address] [place], [address] GAP 10 Normal 5-[address] [facility] Comment on above: Order Comment: 207.1 Performed By: #### L 501.5200, L100.0500, L500.2500, L300.3900 #### [facility] [address] [place], [address] GFR/1.73 sq M.predicted among non-blacks MDRD (S/P/Bld) [Vol rate/Area] 76 mL/min/{1.73_m2} Normal >[address] [facility] Comment on above: Order Comment: 207.1 Result Comment: mL/m in/1.73m2 CKD-EPI Creatinine Equation (2020) Performed By: #### L 501.5200, L100.0500, L500.2500, L300.3900 #### [facility] [address] [place], [address] Glucose [Mass/Vol] 67 mg/dL Low 70-99 [facility] Comment on above: Order Comment: 207.1 Performed By: #### L 501.5200, L100.0500, L500.2500, L300.3900 #### [facility] [address] [place], [address] Potassium [Moles/Vol] 5.0 mmol/L Normal 3.3-5.[address] [facility] Comment on above: Order Comment: 207.1 Performed By: #### L 501.5200, L100.0500, L500.2500, L300.3900 #### [facility] [address] [place], [address] Sodium [Moles/Vol] 133 mmol/L Normal 133-145 [facility] Comment on above: Order Comment: 207.1 Performed By: #### L 501.5200, L100.0500, L500.2500, L300.3900 #### [facility] [address] [place], [address] Urea nitrogen [Mass/Vol] 53 mg/dL High 4-[address] [facility] Comment on above: Order Comment: 207.1 Performed By: #### L 501.5200, L100.0500, L500.2500, L300.3900 #### [facility] [address] [place], [address] CBC-Complete Blood Cnt No Di ffon 04-25-2025 Erythrocyte distribution width (RBC) [Ratio] 18.4 % High 11.6-14.[address] [facility] Comment on above: Order Comment: 207.1 Performed By: #### L 501.5200, L100.0500, L500.2500, L300.3900 #### [facility] [address] [place], [address] Hematocrit (Bld) [Volume fraction] 27.2 % Low 37-[address] [facility] Comment on above: Order Comment: 207.1 Performed By: #### L 501.5200, L100.0500, L500.2500, L300.3900 #### [facility] [address] [place], [address] Hemoglobin (Bld) [Mass/Vol] 8.2 g/dL Low 12.0-15.[address] [facility] Comment on above: Order Comment: 207.1 Performed By: #### L 501.5200, L100.0500, L500.2500, L300.3900 #### [facility] [address] [place], [address] MCH (RBC) [Entitic mass] 28.8 pg Normal 27.0-32.[address] [facility] Comment on above: Order Comment: 207.1 Performed By: #### L 501.5200, L100.0500, L500.2500, L300.3900 #### [facility] [address] [place], [address] MCHC (RBC) [Mass/Vol] 30.1 g/dL Low 32-[address] [facility] Comment on above: Order Comment: 207.1 Performed By: #### L 501.5200, L100.0500, L500.2500, L300.3900 #### [facility] [address] [place], [address] MCV (RBC) [Entitic vol] 95.4 fL Normal 81-[address] [facility] Comment on above: Order Comment: 207.1 Performed By: #### L 501.5200, L100.0500, L500.2500, L300.3900 #### [facility] [address] [place], [address] Platelet mean volume (Bld) [Entitic vol] 8.7 fL Normal 6.2-12.[address] [facility] Comment on above: Order Comment: 207.1 Performed By: #### L 501.5200, L100.0500, L500.2500, L300.3900 #### [facility] [address] [place], [address] Platelets (Bld) [#/Vol] 324 10*3/uL Normal 150-[address] [facility] Comment on above: Order Comment: 207.1 Performed By: #### L 501.5200, L100.0500, L500.2500, L300.3900 #### [facility] [address] [place], [address] RBC (Bld) [#/Vol] 2.85 10*6/uL Low 4.2-5.4 [facility] Comment on above: Order Comment: 207.1 Performed By: #### L 501.5200, L100.0500, L500.2500, L300.3900 #### [facility] [address] [place], [address] RDW SD 61.6 fl High 35.1-43.[address] [facility] Comment on above: Order Comment: 207.1 Performed By: #### L 501.5200, L100.0500, L500.2500, L300.3900 #### [facility] [address] [place], [address] WBC (Bld) [#/Vol] 17.8 10*3/uL High 4.4-11.0 [facility] Comment on above: Order Comment: 207.1 Performed By: #### L 501.5200, L100.0500, L500.2500, L300.3900 #### [facility] [address] [place], [address] Magnesiumon 04-25-2025 Magnesium [Mass/Vol] 3.1 mg/dL High 1.5-2.2 [facility] Comment on above: Order Comment: 207.1 Performed By: #### L 501.5200, L100.0500, L500.2500, L300.3900 #### [facility] [address] [place], [address] Prothrombin Time w/INRon INR Coag (PPP) [Relative time] 2.4 {INR} Normal [facility] Comment on above: Order Comment: 207.1 Performed By: #### L 501.5200, L100.0500, L500.2500, L300.3900 #### [facility] [address] [place], [address] PT Coag (PPP) [Time] 26.8 s High 11.7-14.9 [facility] Comment on above: Order Comment: 207.1 Performed By: #### L 501.5200, L100.0500, L500.2500, L300.3900 #### [facility] [address] [place], [address] CNPNon 04-24-2025 CNPN Normal [facility] Prothrombin Time w/INRon INR Coag (PPP) [Relative time] 2.4 {INR} Normal [facility] Comment on above: Performed By: #### L 300.3900 #### [facility] [address] [place], [address] PT Coag (PPP) [Time] 26.3 s High 11.7-14.9 [facility] Comment on above: Performed By: #### L 300.3900 #### [facility] [address] [place], [address] Basic metabolic 2000 panelon 04-22-2025 Anion gap [Moles/Vol] 11 mmol/L Normal 8-15 [facility] Comment on above: Order Comment: Speci men Type: BLOOD SPECIMENOrdering Facility: [facility] Address: [address] [place] [address] Performed By: #### 2 4321-2 ####[facility] LABORATORYCLIA [id number] [place] [id number] [place] Calcium [Mass/Vol] 8.3 mg/dL Low 8.5-10.2 [facility] Comment on above: Order Comment: Speci men Type: BLOOD SPECIMENOrdering Facility: [facility] Address: [address] [place] [address] Performed By: #### 2 4321-2 ####[facility] LABORATORYCLIA [id number] [place] [id number] [place] Chloride [Moles/Vol] 97 mmol/L Low 98-107 [facility] Comment on above: Order Comment: Speci men Type: BLOOD SPECIMENOrdering Facility: [facility] Address: [address] [place] [address] Performed By: #### 2 4321-2 ####[facility] LABORATORYCLIA [id number] [place] [id number] [place] CO2 [Moles/Vol] 23 mmol/L Normal 22-30 [facility] Comment on above: Order Comment: Speci men Type: BLOOD SPECIMENOrdering Facility: [facility] Address: [address] [place] [address] Performed By: #### 2 4321-2 ####[facility] [id number] [address] STATES OF [facility] Creatinine [Mass/Vol] 0.55 mg/dL Low 0.58-0.96 [facility] Comment on above: Order Comment: Speci men Type: BLOOD SPECIMENOrdering Facility: [facility] Address: [address] [place] [address] Performed By: #### 2 4321-2 ####[facility] LABORATORYCLIA [id number] [address] [place] eGFRcr SerPlBld CKD-EPI 2020 96 mL/min/1.73m??? Normal >=60 [facility] Comment on above: Order Comment: Speci men Type: BLOOD SPECIMENOrdering Facility: [facility] Address: [address] [place] [address] Result Comment: Yessica mated Glomerular Filtration Rate (eGFR) is calculated using the 2020 CKD-EPI creatinine equation. This equation utilizes serum creatinine, sex, and age as parameters. The creatinine assay has traceable calibration to isotope dilution-mass spectrometry. Refer to KDIGO guidelines for clinical interpretation. In patients with unstable renal function, e.g. those with acute kidney injury, the eGFR may not accurately reflect actual GFR. Performed By: #### 2 4321-2 ####[facility] LABORATORYCLIA [id number] [place] [address] [place] Glucose [Mass/Vol] 138 mg/dL High 74-99 [facility] Comment on above: Order Comment: Speci men Type: BLOOD SPECIMENOrdering Facility: [facility] Address: [address] [place], [place] [id number] Result Comment: The [place] Diabetes Association (ADA) provides guidance for cutoff values for fasting glucose and random glucose. The ADA defines fasting as no caloric intake for at least 8 hours. Fasting plasma glucose results between 100 to 125 mg/dL indicate increased risk for diabetes (prediabetes).Fasting plasma glucose results greater than or equal to 126 mg/dL meet the criteria for diagnosis of diabetes. In the absence of unequivocal hyperglycemia, results should be confirmed by repeat testing. In a patient with classic symptoms of hyperglycemia or hyperglycemic crisis, random plasma glucose results greater than or equal to 200 mg/dL meet the criteria for diagnosis of diabetes.Reference: Standards of Medical Care in Diabetes 2016, [place] [employer] Association. Diabetes Care. 2016.39(Suppl 1). Performed By: #### 2 4321-2 ####[facility]ORATORYCLIA [id number] [place] [address] [place] Potassium [Moles/Vol] 4.4 mmol/L Normal 3.7-5.1 [facility] Comment on above: Order Comment: Víctori men Type: BLOOD SPECIMENOrdering Facility: [facility] Address: [address] [place] [address] Performed By: #### 2 4321-2 ####[facility]ORATORYCLIA [id number] [place] [address] [place] Sodium [Moles/Vol] 131 mmol/L Low 136-144 [facility] Comment on above: Order Comment: Speci men Type: BLOOD SPECIMENOrdering Facility: [facility] Address: [address] [place] [address] Performed By: #### 2 4321-2 ####[facility] LABORATORYCLIA [id number] [place] [address] [place] Urea nitrogen [Mass/Vol] 28 mg/dL High 7-21 [facility] Comment on above: Order Comment: Speci men Type: BLOOD SPECIMENOrdering Facility: [facility] Address: [address] [place] [address] Performed By: #### 2 4321-2 ####[facility] LABORATORYCLIA [id number] [address] [place] CASE MANAGEMon 04-22-2025 CASE MANAGEM Normal [facility] CASE MANAGEM Normal [facility] CBC panel Auto (Bld)on 04-22 Erythrocyte distribution width (RBC) [Ratio] 17.4 % High 11.5-15.0 [facility] Comment on above: Order Comment: Speci men Type: BLOOD SPECIMENOrdering Facility: [facility] Address: [address] [place] [address] Performed By: #### 5 8410-2 ####[facility] LABORATORYCLIA [id number] [address] STATES [facility] Hematocrit (Bld) [Volume fraction] 29.1 % Low 36.0-46.0 [facility] Comment on above: Order Comment: Speci men Type: BLOOD SPECIMENOrdering Facility: [facility] Address: [address] [place] [address] Performed By: #### 5 8410-2 ####[facility]ORATORYCLIA [id number] [address] [place] Hemoglobin (Bld) [Mass/Vol] 9.4 g/dL Low 11.5-15.5 [facility] Comment on above: Order Comment: Speci men Type: BLOOD SPECIMENOrdering Facility: [facility] Address: [address] [place] [address] Performed By: #### 5 8410-2 ####[facility] LABORATORYCLIA [id number] [address] [place] MCH (RBC) [Entitic mass] 29.8 pg Normal 26.0-34.0 [facility] Comment on above: Order Comment: Speci men Type: BLOOD SPECIMENOrdering Facility: [facility] Address: [address] [place] [address] Performed By: #### 5 8410-2 ####[facility] LABORATORYCLIA [id number] [address] STATES OF [facility] MCHC (RBC) [Mass/Vol] 32.3 g/dL Normal 30.5-36.0 [facility] Comment on above: Order Comment: Speci men Type: BLOOD SPECIMENOrdering Facility: [facility] Address: [address] [place] [address] Performed By: #### 5 8410-2 ####[facility]ORATORYCLIA [id number] [address] OF [facility] MCV (RBC) [Entitic vol] 92.4 fL Normal 80.0-100.0 [facility] Comment on above: Order Comment: Speci men Type: BLOOD SPECIMENOrdering Facility: [facility] Address: [address] [place] [address] Performed By: #### 5 8410-2 ####[facility] LABORATORYCLIA [id number] [address] Nucleated RBC (Bld) [#/Vol] 10*3/uL Normal <0.01 [facility] Comment on above: Order Comment: Speci men Type: BLOOD SPECIMENOrdering Facility: [facility] Address: [address] [place] [address] Performed By: #### 5 8410-2 ####[facility]ORATORYCLIA [id number] [address] [place] Platelet mean volume (Bld) [Entitic vol] 9.0 fL Normal 9.0-12.7 [facility] Comment on above: Order Comment: Speci men Type: BLOOD SPECIMENOrdering Facility: [facility] Address: [address] [place] [address] Performed By: #### 5 8410-2 ####[facility] LABORATORYCLIA [id number] [address] [place] Platelets (Bld) [#/Vol] 267 10*3/uL Normal 150-400 [facility] Comment on above: Order Comment: Speci men Type: BLOOD SPECIMENOrdering Facility: [facility] Address: [address] [place] [address] Performed By: #### 5 8410-2 ####[facility]ORATORYCLIA [id number] [address] STATES OF [facility] RBC (Bld) [#/Vol] 3.15 10*6/uL Low 3.90-5.20 [facility] Comment on above: Order Comment: Speci men Type: BLOOD SPECIMENOrdering Facility: [facility] Address: [address] [place] [address] Performed By: #### 5 8410-2 ####[facility]ORATORYCLIA [id number] [address] WBC (Bld) [#/Vol] 15.78 10*3/uL High 3.70-11.00 [facility] Comment on above: Order Comment: Speci men Type: BLOOD SPECIMENOrdering Facility: [facility] Address: [address] [place] [address] Performed By: #### 5 8410-2 ####[facility] LABORATORYCLIA [id number] [address] CNDSon 04-22-2025 CNDS Normal [facility] CONSULT PROGon 04-22-2025 CONSULT PROG Normal [facility] PT panel Coag (PPP)on 2024 INR Coag (PPP) [Relative time] 2.7 {INR} High 0.9-1.3 [facility] Comment on above: Order Comment: Speci men Type: BLOOD SPECIMENOrdering Facility: [facility] Address: [address] [place] [address] Result Comment: Tequila min K Antagonist (VKA) Therapeutic Range: INR 2 to 3 (Target INR of 2.5)Note: For patients treated with VKA drugs, such as warfarin, the [employer] 2012 Guideline recommends a therapeutic INR range of 2 to 3 (target INR of 2.5). This recommendation includes high-risk patients with antiphospholipid syndrome with previous arterial or venous thromboembolism, current-generation mechanical or bioprosthetic aortic heart valve replacement.Note: Patients with mechanical aortic valve replacement and additional risk factors for thromboembolic events (atrial fibrillation, previous thromboembolism, LV dysfunction, hypercoagulable conditions) or an older generation mechanical AVR (i.e., ball in-Cage) or any mechanical MVR should have a INR therapeutic range of 2.5 to 3.5 (target INR of 3).Mt GH, et al. Chest 2012, 141:7S-47SNishimmary RA, et al. [facility] 2017, 70: 252-289 Performed By: #### 3 4528-0 ####[facility] LABORATORYCLIA [id number] [place] [address] [place] PT Coag (PPP) [Time] 25.5 s High 9.7-13.0 [facility] Comment on above: Order Comment: Franco newton Type: BLOOD SPECIMENOrdering Facility: [facility] Address: [address] [place] [address] Performed By: #### 3 4528-0 ####[facility]ORATORYCLIA [id number] [place] [address] [place] Basic metabolic 2000 panelon 04-21-2025 Anion gap [Moles/Vol] 12 mmol/L Normal 8-15 [facility] Comment on above: Order Comment: Franco newton Type: BLOOD SPECIMENOrdering Facility: [facility] Address: [address] [place] [address] Performed By: #### 2 777-1, 14204-0 ####[facility] LABORATORYCLIA [id number] [address] [place] Calcium [Mass/Vol] 8.5 mg/dL Normal 8.5-10.2 [facility] Comment on above: Order Comment: Franco newton Type: BLOOD SPECIMENOrdering Facility: [facility] Address: [address] [place] [address] Performed By: #### 2 777-1, 67265-1 ####[facility] LABORATORYCLIA [id number] [address] STATES [facility] Chloride [Moles/Vol] 97 mmol/L Low 98-107 [facility] Comment on above: Order Comment: Speci men Type: BLOOD SPECIMENOrdering Facility: [facility] Address: [address] [place] [address] Performed By: #### 2 777-1, 03423-4 ####[facility] LABORATORYCLIA [id number] [address] STATES OF [facility] CO2 [Moles/Vol] 23 mmol/L Normal 22-30 [facility] Comment on above: Order Comment: Speci men Type: BLOOD SPECIMENOrdering Facility: [facility] Address: [address] [place] [address] Performed By: #### 2 777-1, 81870-6 ####[facility] [id number] [address] [place] [facility] Creatinine [Mass/Vol] 0.51 mg/dL Low 0.58-0.96 [facility] Comment on above: Order Comment: Speci men Type: BLOOD SPECIMENOrdering Facility: [facility] Address: [address] [place] [address] Performed By: #### 2 777-1, 41032-0 ####[facility]ITAL[facility]IA [id number] [address] eGFRcr SerPlBld CKD-EPI 2020 98 mL/min/1.73m??? Normal >=60 [facility] Comment on above: Order Comment: Speci men Type: BLOOD SPECIMENOrdering Facility: [facility] Address: [address] [place] [address] Result Comment: Yessica mated Glomerular Filtration Rate (eGFR) is calculated using the 2020 CKD-EPI creatinine equation. This equation utilizes serum creatinine, sex, and age as parameters. The creatinine assay has traceable calibration to isotope dilution-mass spectrometry. Refer to KDIGO guidelines for clinical interpretation. In patients with unstable renal function, e.g. those with acute kidney injury, the eGFR may not accurately reflect actual GFR. Performed By: #### 2 777-1, 28075-9 ####[facility] LABORATORYCLIA [id number] [place] [address] [place] Glucose [Mass/Vol] 153 mg/dL High 74-99 [facility] Comment on above: Order Comment: Franco newton Type: BLOOD SPECIMENOrdering Facility: [facility] Address: [address] [place] [address] Result Comment: The [place] Diabetes Association (ADA) provides guidance for cutoff values for fasting glucose and random glucose. The ADA defines fasting as no caloric intake for at least 8 hours. Fasting plasma glucose results between 100 to 125 mg/dL indicate increased risk for diabetes (prediabetes).Fasting plasma glucose results greater than or equal to 126 mg/dL meet the criteria for diagnosis of diabetes. In the absence of unequivocal hyperglycemia, results should be confirmed by repeat testing. In a patient with classic symptoms of hyperglycemia or hyperglycemic crisis, random plasma glucose results greater than or equal to 200 mg/dL meet the criteria for diagnosis of diabetes.Reference: Standards of Medical Care in Diabetes 2016, [employer] Diabetes Association. Diabetes Care. 2016.39(Suppl 1). Performed By: #### 2 777-1, 59918-1 ####[facility] LABORATORYCLIA [id number] [place] [address] [place] Potassium [Moles/Vol] 4.8 mmol/L Normal 3.7-5.1 [facility] Comment on above: Order Comment: Franco newton Type: BLOOD SPECIMENOrdering Facility: [facility] Address: [address] [place] [address] Performed By: #### 2 777-1, 51673-2 ####[facility] LABORATORYCLIA [id number] [place] [address] [place] Sodium [Moles/Vol] 132 mmol/L Low 136-144 [facility] Comment on above: Order Comment: Franco men Type: BLOOD SPECIMENOrdering Facility: [facility] Address: [address] [place] [address] Performed By: #### 2 777-1, 44649-0 ####[facility] LABORATORYCLIA [id number] [place] [address] [place] Urea nitrogen [Mass/Vol] 26 mg/dL High 7-21 [facility] Comment on above: Order Comment: Specklaudia aman Type: BLOOD SPECIMENOrdering Facility: [facility] Address: [address] [place] [address] [place] [address] Performed By: #### 2 777-1, 13289-2 ####[facility] LABORATORYCLIA [id number] [address] [place] CASE MANAGEMon 04-21-2025 CASE MANAGEM Normal [facility] CONSULT PROGon 04-21-2025 CONSULT PROG Normal [facility] ECG COMPLETEon 04-21-2025 ECG COMPLETE Normal [facility] PT panel Coag (PPP)on 2024 INR Coag (PPP) [Relative time] 1.6 {INR} High 0.9-1.3 [facility] Comment on above: Order Comment: Franco newton Type: BLOOD SPECIMENOrdering Facility: [facility] Address: [facility] [place] [address] Result Comment: Tequila min K Antagonist (VKA) Therapeutic Range: INR 2 to 3 (Target INR of 2.5)Note: For patients treated with VKA drugs, such as warfarin, the [employer] 2012 Guideline recommends a therapeutic INR range of 2 to 3 (target INR of 2.5). This recommendation includes high-risk patients with antiphospholipid syndrome with previous arterial or venous thromboembolism, current-generation mechanical or bioprosthetic aortic heart valve replacement.Note: Patients with mechanical aortic valve replacement and additional risk factors for thromboembolic events (atrial fibrillation, previous thromboembolism, LV dysfunction, hypercoagulable conditions) or an older generation mechanical AVR (i.e., ball in-Cage) or any mechanical MVR should have a INR therapeutic range of 2.5 to 3.5 (target INR of 3).Mt GH, et al. Chest 2012, 141:7S-47SNishimura RA, et al. [facility] 2017, 70: 252-289 Performed By: #### 3 4528-0 ####[facility] LABORATORYCLIA [id number] [address] [place] PT Coag (PPP) [Time] 15.4 s High 9.7-13.0 [facility] Comment on above: Order Comment: Speci men Type: BLOOD SPECIMENOrdering Facility: [facility] Address: [address] [place] [address] Performed By: #### 3 4528-0 ####[facility] LABORATORYCLIA [id number] [place] [address] [place] Phosphate SerPl-mCncon 04-21 Phosphate [Mass/Vol] 3.7 mg/dL Normal 2.7-4.8 [facility] Comment on above: Order Comment: Speci men Type: BLOOD SPECIMENOrdering Facility: [facility] Address: [address] [place] [address] Performed By: #### 2 777-1, 55376-7 ####[facility]ORATORYCLIA [id number] [address] [place] THERAPY NTon 04-21-2025 THERAPY NT Normal [facility] THERAPY NT Normal [facility] Basic metabolic 2000 panelon 04-20-2025 Anion gap [Moles/Vol] 10 mmol/L Normal 8-15 [facility] Comment on above: Order Comment: Speci men Type: BLOOD SPECIMENOrdering Facility: [facility] Address: [address] [place] [address] Performed By: #### 2 777-1, 06764-6 ####[facility] LABORATORYCLIA [id number] [place] [address] [place] Calcium [Mass/Vol] 8.4 mg/dL Low 8.5-10.2 [facility] Comment on above: Order Comment: Speci men Type: BLOOD SPECIMENOrdering Facility: [facility] Address: [address] [place] [address] Performed By: #### 2 777-1, 93408-4 ####[facility] LABORATORYCLIA [id number] [place] [address] [place] Chloride [Moles/Vol] 101 mmol/L Normal 98-107 [facility] Comment on above: Order Comment: Speci men Type: BLOOD SPECIMENOrdering Facility: [facility] Address: [address] [place] [address] Performed By: #### 2 777-1, 37792-2 ####[facility]ITALCLIA [id number] [address] [place] CO2 [Moles/Vol] 23 mmol/L Normal 22-30 [facility] Comment on above: Order Comment: Speci men Type: BLOOD SPECIMENOrdering Facility: [facility] Address: [address] [place] [address] Performed By: #### 2 777-1, 12891-0 ####[facility]ITALCLIA [id number] [address] STATES [place] [facility] Creatinine [Mass/Vol] 0.53 mg/dL Low 0.58-0.96 [facility] Comment on above: Order Comment: Speci men Type: BLOOD SPECIMENOrdering Facility: [facility] Address: [address] [place] [address] Performed By: #### 2 777-1, 67674-9 ####[facility]ITALCLIA [id number] [address] eGFRcr SerPlBld CKD-EPI 2020 97 mL/min/1.73m??? Normal >=60 [facility] Comment on above: Order Comment: Speci men Type: BLOOD SPECIMENOrdering Facility: [facility] Address: [address] [place] [address] Result Comment: Yessica mated Glomerular Filtration Rate (eGFR) is calculated using the 2020 CKD-EPI creatinine equation. This equation utilizes serum creatinine, sex, and age as parameters. The creatinine assay has traceable calibration to isotope dilution-mass spectrometry. Refer to KDIGO guidelines for clinical interpretation. In patients with unstable renal function, e.g. those with acute kidney injury, the eGFR may not accurately reflect actual GFR. Performed By: #### 2 777-1, 23541-0 ####[facility] LABORATORYCLIA [id number] [address] [place] Glucose [Mass/Vol] 116 mg/dL High 74-99 [facility] Comment on above: Order Comment: Speci men Type: BLOOD SPECIMENOrdering Facility: [facility] Address: [address] [place] [address] Result Comment: The [place] Diabetes Association (ADA) provides guidance for cutoff values for fasting glucose and random glucose. The ADA defines fasting as no caloric intake for at least 8 hours. Fasting plasma glucose results between 100 to 125 mg/dL indicate increased risk for diabetes (prediabetes).Fasting plasma glucose results greater than or equal to 126 mg/dL meet the criteria for diagnosis of diabetes. In the absence of unequivocal hyperglycemia, results should be confirmed by repeat testing. In a patient with classic symptoms of hyperglycemia or hyperglycemic crisis, random plasma glucose results greater than or equal to 200 mg/dL meet the criteria for diagnosis of diabetes.Reference: Standards of Medical Care in Diabetes 2016, [place] [employer]. Diabetes Care. 2016.39(Suppl 1). Performed By: #### 2 777-1, 31392-2 ####[facility] LABORATORYCLIA [id number] [place] [address] [place] Potassium [Moles/Vol] 4.8 mmol/L Normal 3.7-5.1 [facility] Comment on above: Order Comment: Franco aman Type: BLOOD SPECIMENOrdering Facility: [facility] Address: [address] [place] [address] Performed By: #### 2 777-1, 11171-5 ####[facility] LABORATORYCLIA [id number] [place] [address] [place] Sodium [Moles/Vol] 134 mmol/L Low 136-144 [facility] Comment on above: Order Comment: Víctori men Type: BLOOD SPECIMENOrdering Facility: [facility] Address: [address] [place] [address] Performed By: #### 2 777-1, 13773-0 ####[facility] LABORATORYCLIA [id number] [place] [address] [place] Urea nitrogen [Mass/Vol] 20 mg/dL Normal 7-21 [facility] Comment on above: Order Comment: Speci men Type: BLOOD SPECIMENOrdering Facility: [facility] Address: [address] [place] [address] Performed By: #### 2 777-1, 60797-6 ####[facility] LABORATORYCLIA [id number] [address] [place] CASE MANAGEMon 04-20-2025 CASE MANAGEM Normal [facility] CBC panel Auto (Bld)on 04-20 Erythrocyte distribution width (RBC) [Ratio] 17.1 % High 11.5-15.0 [facility] Comment on above: Order Comment: Speci men Type: BLOOD SPECIMENOrdering Facility: [facility] Address: [address] [place] [address] Performed By: #### 5 8410-2 ####[facility] LABORATORYCLIA [id number] [address] [place] Hematocrit (Bld) [Volume fraction] 25.6 % Low 36.0-46.0 [facility] Comment on above: Order Comment: Speci men Type: BLOOD SPECIMENOrdering Facility: [facility] Address: [address] [place] [address] Performed By: #### 5 8410-2 ####[facility]ORATORYCLIA [id number] [address] [place] Hemoglobin (Bld) [Mass/Vol] 8.3 g/dL Low 11.5-15.5 [facility] Comment on above: Order Comment: Speci men Type: BLOOD SPECIMENOrdering Facility: [facility] Address: [address] [place] [address] Performed By: #### 5 8410-2 ####[facility]ORATORYCLIA [id number] [address] [place] MCH (RBC) [Entitic mass] 29.9 pg Normal 26.0-34.0 [facility] Comment on above: Order Comment: Speci men Type: BLOOD SPECIMENOrdering Facility: [facility] Address: [address] [place] [address] Performed By: #### 5 8410-2 ####[facility]ORATORYCLIA [id number] [address] MCHC (RBC) [Mass/Vol] 32.4 g/dL Normal 30.5-36.0 [facility] Comment on above: Order Comment: Speci men Type: BLOOD SPECIMENOrdering Facility: [facility] Address: [address] [place] [address] Performed By: #### 5 8410-2 ####[facility]ORATORYCLIA [id number] [address] MCV (RBC) [Entitic vol] 92.1 fL Normal 80.0-100.0 [facility] Comment on above: Order Comment: Speci men Type: BLOOD SPECIMENOrdering Facility: [facility] Address: [address] [place] [address] Performed By: #### 5 8410-2 ####[facility] LABORATORYCLIA [id number] [address] Nucleated RBC (Bld) [#/Vol] 0.02 10*3/uL High <0.01 [facility] Comment on above: Order Comment: Speci men Type: BLOOD SPECIMENOrdering Facility: [facility] Address: [address] [place] [address] Performed By: #### 5 8410-2 ####[facility] LABORATORYCLIA [id number] [address] [place] Platelet mean volume (Bld) [Entitic vol] 9.2 fL Normal 9.0-12.7 [facility] Comment on above: Order Comment: Speci men Type: BLOOD SPECIMENOrdering Facility: [facility] Address: [address] [place] [address] Performed By: #### 5 8410-2 ####[facility]ORATORYCLIA [id number] [address] [place] Platelets (Bld) [#/Vol] 210 10*3/uL Normal 150-400 [facility] Comment on above: Order Comment: Speci men Type: BLOOD SPECIMENOrdering Facility: [facility] Address: [address] [place] [address] Performed By: #### 5 8410-2 ####[facility] LABORATORYCLIA [id number] [address] [place] RBC (Bld) [#/Vol] 2.78 10*6/uL Low 3.90-5.20 [facility] Comment on above: Order Comment: Speci men Type: BLOOD SPECIMENOrdering Facility: [facility] Address: [address] [place] [address] Performed By: #### 5 8410-2 ####[facility]ORATORYCLIA [id number] [address] [place] WBC (Bld) [#/Vol] 12.74 10*3/uL High 3.70-11.00 [facility] Comment on above: Order Comment: Speci men Type: BLOOD SPECIMENOrdering Facility: [facility] Address: [address] [place] [address] Performed By: #### 5 8410-2 ####[facility] LABORATORYCLIA [id number] [address] CONSULT PROGon 04-20-2025 CONSULT PROG Normal [facility] NUTRITIONon 04-20-2025 NUTRITION Normal [facility] PT EDon 04-20-2025 PT ED Normal [facility] PT panel Coag (PPP)on 2024 INR Coag (PPP) [Relative time] 1.2 {INR} Normal 0.9-1.3 [facility] Comment on above: Order Comment: Speci men Type: BLOOD SPECIMENOrdering Facility: [facility] Address: [address] [place] [address] Result Comment: Tequila min K Antagonist (VKA) Therapeutic Range: INR 2 to 3 (Target INR of 2.5)Note: For patients treated with VKA drugs, such as warfarin, the [employer] 2012 Guideline recommends a therapeutic INR range of 2 to 3 (target INR of 2.5). This recommendation includes high-risk patients with antiphospholipid syndrome with previous arterial or venous thromboembolism, current-generation mechanical or bioprosthetic aortic heart valve replacement.Note: Patients with mechanical aortic valve replacement and additional risk factors for thromboembolic events (atrial fibrillation, previous thromboembolism, LV dysfunction, hypercoagulable conditions) or an older generation mechanical AVR (i.e., ball in-Cage) or any mechanical MVR should have a INR therapeutic range of 2.5 to 3.5 (target INR of 3).Mt GH, et al. Chest 2012, 141:7S-47SNishimura RA, et al. [facility] 2017, 70: 252-289 Performed By: #### 3 4528-0 ####[facility] LABORATORYCLIA [id number] [place] [address] [place] PT Coag (PPP) [Time] 12.0 s Normal 9.7-13.0 [facility] Comment on above: Order Comment: Speci men Type: BLOOD SPECIMENOrdering Facility: [facility] Address: [address] [place] [address] Performed By: #### 3 4528-0 ####[facility]ORATORYCLIA [id number] [place] [address] [place] Phosphate SerPl-mCncon 04-20 Phosphate [Mass/Vol] 3.8 mg/dL Normal 2.7-4.8 [facility] Comment on above: Order Comment: Speci men Type: BLOOD SPECIMENOrdering Facility: [facility] Address: [address] [place] [address] Performed By: #### 2 777-1, 99480-4 ####[facility] LABORATORYCLIA [id number] [place] [address] [place] THERAPY NTon 04-20-2025 THERAPY NT Normal [facility] Basic metabolic 2000 panelon 04-19-2025 Anion gap [Moles/Vol] 9 mmol/L Normal 8-15 [facility] Comment on above: Order Comment: Speci men Type: BLOOD SPECIMENOrdering Facility: [facility] Address: [address] [place] [address] Performed By: #### 2 777-1, 83475-9 ####[facility]ORATORYCLIA [id number] [place] [address] [place] Calcium [Mass/Vol] 8.4 mg/dL Low 8.5-10.2 [facility] Comment on above: Order Comment: Speci men Type: BLOOD SPECIMENOrdering Facility: [facility] Address: [address] [place] [address] Performed By: #### 2 777-1, 43503-4 ####[facility] LABORATORYCLIA [id number] [place] [address] [place] Chloride [Moles/Vol] 101 mmol/L Normal 98-107 [facility] Comment on above: Order Comment: Speci men Type: BLOOD SPECIMENOrdering Facility: [facility] Address: [address] [place] [address] Performed By: #### 2 777-1, 11372-5 ####[facility] LABORATORYCLIA [id number] [place] [address] [place] CO2 [Moles/Vol] 24 mmol/L Normal 22-30 [facility] Comment on above: Order Comment: Speci men Type: BLOOD SPECIMENOrdering Facility: [facility] Address: [address] [place] [address] Performed By: #### 2 777-1, 02721-1 ####[facility] LABORATORYCLIA [id number] [place] [address] [place] Creatinine [Mass/Vol] 0.52 mg/dL Low 0.58-0.96 [facility] Comment on above: Order Comment: Speci men Type: BLOOD SPECIMENOrdering Facility: [facility] Address: [address] [place] [address] Performed By: #### 2 777-1, 75690-2 ####[facility]ORATORYCLIA [id number] [place] [address] [place] eGFRcr SerPlBld CKD-EPI 2020 98 mL/min/1.73m??? Normal >=60 [facility] Comment on above: Order Comment: Franco newton Type: BLOOD SPECIMENOrdering Facility: [facility] Address: [address] [place] [address] Result Comment: Yessica mated Glomerular Filtration Rate (eGFR) is calculated using the 2020 CKD-EPI creatinine equation. This equation utilizes serum creatinine, sex, and age as parameters. The creatinine assay has traceable calibration to isotope dilution-mass spectrometry. Refer to KDIGO guidelines for clinical interpretation. In patients with unstable renal function, e.g. those with acute kidney injury, the eGFR may not accurately reflect actual GFR. Performed By: #### 2 777-1, 35201-7 ####[facility] LABORATORYCLIA [id number] [place] [address] [place] Glucose [Mass/Vol] 135 mg/dL High 74-99 [facility] Comment on above: Order Comment: Franco newton Type: BLOOD SPECIMENOrdering Facility: [facility] Address: [address] [place] [address] Result Comment: The [place] Diabetes [employer] (ADA) provides guidance for cutoff values for fasting glucose and random glucose. The ADA defines fasting as no caloric intake for at least 8 hours. Fasting plasma glucose results between 100 to 125 mg/dL indicate increased risk for diabetes (prediabetes).Fasting plasma glucose results greater than or equal to 126 mg/dL meet the criteria for diagnosis of diabetes. In the absence of unequivocal hyperglycemia, results should be confirmed by repeat testing. In a patient with classic symptoms of hyperglycemia or hyperglycemic crisis, random plasma glucose results greater than or equal to 200 mg/dL meet the criteria for diagnosis of diabetes.Reference: Standards of Medical Care in Diabetes 2016, [place] [employer]. Diabetes Care. 2016.39(Suppl 1). Performed By: #### 2 777-1, 17638-7 ####[facility] LABORATORYCLIA [id number] [place] [address] [place] Potassium [Moles/Vol] 4.8 mmol/L Normal 3.7-5.1 [facility] Comment on above: Order Comment: Franco newton Type: BLOOD SPECIMENOrdering Facility: [facility] Address: [address] [place] [address] Performed By: #### 2 777-1, 72779-6 ####[facility] LABORATORYCLIA [id number] [place] [address] [place] Sodium [Moles/Vol] 134 mmol/L Low 136-144 [facility] Comment on above: Order Comment: Speci men Type: BLOOD SPECIMENOrdering Facility: [facility] Address: [address] [place] [address] Performed By: #### 2 777-1, 09397-1 ####[facility] LABORATORYCLIA [id number] [place] [address] [place] Urea nitrogen [Mass/Vol] 18 mg/dL Normal 7-21 [facility] Comment on above: Order Comment: Speci men Type: BLOOD SPECIMENOrdering Facility: [facility] Address: [address] [place] [address] Performed By: #### 2 777-1, 17672-7 ####[facility] LABORATORYCLIA [id number] [address] [place] CASE MANAGEMon 04-19-2025 CASE MANAGEM Normal [facility] CBC W Auto Differential pane l (Bld)on 04-19-2025 Basophils (Bld) [#/Vol] 0.04 10*3/uL Normal <0.11 [facility] Comment on above: Order Comment: Speci men Type: BLOOD SPECIMENOrdering Facility: [facility] Address: [address] [place] [address] Performed By: #### 5 7021-8 ####[facility] LABORATORYCLIA [id number] [address] [place] Basophils/100 WBC (Bld) 0.3 % Normal [facility] Comment on above: Order Comment: Speci men Type: BLOOD SPECIMENOrdering Facility: [facility] Address: [address] [place] [address] Performed By: #### 5 7021-8 ####[facility] LABORATORYCLIA [id number] [address] STATES [facility] Differential cell count method Nom (Bld) Auto Normal [facility] Comment on above: Order Comment: Speci men Type: BLOOD SPECIMENOrdering Facility: [facility] Address: [facility] [place] [address] Performed By: #### 5 7021-8 ####[facility] LABORATORYCLIA [id number] [address] [place] Eosinophils (Bld) [#/Vol] 0.12 10*3/uL Normal <0.46 [facility] Comment on above: Order Comment: Speci men Type: BLOOD SPECIMENOrdering Facility: [facility] Address: [address] [place] [address] Performed By: #### 5 7021-8 ####[facility] LABORATORYCLIA [id number] [address] Eosinophils/100 WBC (Bld) 0.9 % Normal [facility] Comment on above: Order Comment: Speci men Type: BLOOD SPECIMENOrdering Facility: [facility] Address: [address] [place] [address] Performed By: #### 5 7021-8 ####[facility] LABORATORYCLIA [id number] [address] [place] Erythrocyte distribution width (RBC) [Ratio] 16.8 % High 11.5-15.0 [facility] Comment on above: Order Comment: Speci men Type: BLOOD SPECIMENOrdering Facility: [facility] Address: [address] [place] [address] Performed By: #### 5 7021-8 ####[facility] LABORATORYCLIA [id number] [address] [place] Hematocrit (Bld) [Volume fraction] 25.7 % Low 36.0-46.0 [facility] Comment on above: Order Comment: Speci men Type: BLOOD SPECIMENOrdering Facility: [facility] Address: [address] [place] [address] Performed By: #### 5 7021-8 ####[facility] LABORATORYCLIA [id number] [place] [address] [place] Hemoglobin (Bld) [Mass/Vol] 8.3 g/dL Low 11.5-15.5 [facility] Comment on above: Order Comment: Speci men Type: BLOOD SPECIMENOrdering Facility: [facility] Address: [address] [place] [address] Performed By: #### 5 7021-8 ####[facility] LABORATORYCLIA [id number] [place] [address] [place] Immature granulocytes (Bld) [#/Vol] 0.12 10*3/uL High <0.10 [facility] Comment on above: Order Comment: Speci men Type: BLOOD SPECIMENOrdering Facility: [facility] Address: [address] [place] [address] Performed By: #### 5 7021-8 ####[facility] LABORATORYCLIA [id number] [address] [place] Immature granulocytes/100 WBC (Bld) 0.9 % Normal [facility] Comment on above: Order Comment: Speci men Type: BLOOD SPECIMENOrdering Facility: [facility] Address: [address] [place] [address] Performed By: #### 5 7021-8 ####[facility] LABORATORYCLIA [id number] [place] [address] [place] Lymphocytes (Bld) [#/Vol] 1.63 10*3/uL Normal 1.00-4.00 [facility] Comment on above: Order Comment: Speci men Type: BLOOD SPECIMENOrdering Facility: [facility] Address: [address] [place] [address] Performed By: #### 5 7021-8 ####[facility] LABORATORYCLIA [id number] [address] [place] Lymphocytes/100 WBC (Bld) 12.9 % Normal [facility] Comment on above: Order Comment: Speci men Type: BLOOD SPECIMENOrdering Facility: [facility] Address: [address] [place] [address] Performed By: #### 5 7021-8 ####[facility] LABORATORYCLIA [id number] [address] STATES [facility] MCH (RBC) [Entitic mass] 29.3 pg Normal 26.0-34.0 [facility] Comment on above: Order Comment: Speci men Type: BLOOD SPECIMENOrdering Facility: [facility] Address: [address] [place] [address] Performed By: #### 5 7021-8 ####[facility] LABORATORYCLIA [id number] [address] [place] MCHC (RBC) [Mass/Vol] 32.3 g/dL Normal 30.5-36.0 [facility] Comment on above: Order Comment: Speci men Type: BLOOD SPECIMENOrdering Facility: [facility] Address: [address] [place] [address] Performed By: #### 5 7021-8 ####[facility] LABORATORYCLIA [id number] [address] [place] MCV (RBC) [Entitic vol] 90.8 fL Normal 80.0-100.0 [facility] Comment on above: Order Comment: Speci men Type: BLOOD SPECIMENOrdering Facility: [facility] Address: [address] [place] [address] Performed By: #### 5 7021-8 ####[facility] LABORATORYCLIA [id number] [address] [place] Monocytes (Bld) [#/Vol] 1.21 10*3/uL High <0.87 [facility] Comment on above: Order Comment: Speci men Type: BLOOD SPECIMENOrdering Facility: [facility] Address: [address] [place] [address] Performed By: #### 5 7021-8 ####[facility] LABORATORYCLIA [id number] [address] Monocytes/100 WBC (Bld) 9.6 % Normal [facility] Comment on above: Order Comment: Speci men Type: BLOOD SPECIMENOrdering Facility: [facility] Address: [address] [place] [address] Performed By: #### 5 7021-8 ####[facility] LABORATORYCLIA [id number] [place] [address] [place] Neutrophils (Bld) [#/Vol] 9.54 10*3/uL High 1.45-7.50 [facility] Comment on above: Order Comment: Speci men Type: BLOOD SPECIMENOrdering Facility: [facility] Address: [address] [place] [address] Performed By: #### 5 7021-8 ####[facility] LABORATORYCLIA [id number] [address] [place] Neutrophils/100 WBC (Bld) 75.4 % Normal [facility] Comment on above: Order Comment: Speci men Type: BLOOD SPECIMENOrdering Facility: [facility] Address: [address] [place] [address] Performed By: #### 5 7021-8 ####[facility] LABORATORYCLIA [id number] [place] [address] [place] Nucleated RBC (Bld) [#/Vol] 0.02 10*3/uL High <0.01 [facility] Comment on above: Order Comment: Speci men Type: BLOOD SPECIMENOrdering Facility: [facility] Address: [address] [place] [address] Performed By: #### 5 7021-8 ####[facility] LABORATORYCLIA [id number] [place] [address] [place] Nucleated RBC/100 WBC (Bld) [Ratio] 0.2 /100 WBC Normal [facility] Comment on above: Order Comment: Speci men Type: BLOOD SPECIMENOrdering Facility: [facility] Address: [address] [place] [address] Performed By: #### 5 7021-8 ####[facility]ORATORYCLIA [id number] [place] [address] [place] Platelet mean volume (Bld) [Entitic vol] 9.2 fL Normal 9.0-12.7 [facility] Comment on above: Order Comment: Speci men Type: BLOOD SPECIMENOrdering Facility: [facility] Address: [address] [place] [address] Performed By: #### 5 7021-8 ####[facility] LABORATORYCLIA [id number] [address] STATES OF [facility] Platelets (Bld) [#/Vol] 202 10*3/uL Normal 150-400 [facility] Comment on above: Order Comment: Speci men Type: BLOOD SPECIMENOrdering Facility: [facility] Address: [address] [place] [address] Performed By: #### 5 7021-8 ####[facility] LABORATORYCLIA [id number] [place] [address] [place] [facility] RBC (Bld) [#/Vol] 2.83 10*6/uL Low 3.90-5.20 [facility] Comment on above: Order Comment: Speci men Type: BLOOD SPECIMENOrdering Facility: [facility] Address: [address] [place] [address] Performed By: #### 5 7021-8 ####[facility] LABORATORYCLIA [id number] [address] [place] WBC (Bld) [#/Vol] 12.66 10*3/uL High 3.70-11.00 [facility] Comment on above: Order Comment: Speci men Type: BLOOD SPECIMENOrdering Facility: [facility] Address: [address] [place] [address] Performed By: #### 5 7021-8 ####[facility] LABORATORYCLIA [id number] [address] CONSULT PROGon 04-19-2025 CONSULT PROG Normal [facility] NURSING PROGon 04-19-2025 NURSING PROG Normal [facility] PT panel Coag (PPP)on 2024 INR Coag (PPP) [Relative time] 1.2 {INR} Normal 0.9-1.3 [facility] Comment on above: Order Comment: Franco newton Type: BLOOD SPECIMENOrdering Facility: [facility] Address: [address] [place] [address] Result Comment: Tequila min K Antagonist (VKA) Therapeutic Range: INR 2 to 3 (Target INR of 2.5)Note: For patients treated with VKA drugs, such as warfarin, the [employer] 2012 Guideline recommends a therapeutic INR range of 2 to 3 (target INR of 2.5). This recommendation includes high-risk patients with antiphospholipid syndrome with previous arterial or venous thromboembolism, current-generation mechanical or bioprosthetic aortic heart valve replacement.Note: Patients with mechanical aortic valve replacement and additional risk factors for thromboembolic events (atrial fibrillation, previous thromboembolism, LV dysfunction, hypercoagulable conditions) or an older generation mechanical AVR (i.e., ball in-Cage) or any mechanical MVR should have a INR therapeutic range of 2.5 to 3.5 (target INR of 3).Mt GH, et al. Chest 2012, 141:7S-47SNishimmary RA, et al. [facility] 2017, 70: 252-289 Performed By: #### 3 4528-0 ####[facility] LABORATORYCLIA [id number] [place] [address] [place] PT Coag (PPP) [Time] 11.6 s Normal 9.7-13.0 [facility] Comment on above: Order Comment: Franco newton Type: BLOOD SPECIMENOrdering Facility: [facility] Address: [address] [place] [place] [id number] Performed By: #### 3 4528-0 ####[facility] LABORATORYCLIA [id number] [place] [address] [place] [facility]ate [facility] Phosphate [Mass/Vol] 3.2 mg/dL Normal 2.7-4.8 [facility] Comment on above: Order Comment: Franco newton Type: BLOOD SPECIMENOrdering Facility: [facility] Address: [address] [place] [address] Performed By: #### 2 777-, 19879-8 ####[facility] LABORATORYCLIA [id number] [place] [address] [place] THERAPY NTon 04-19-2025 THERAPY NT Normal [facility] Basic metabolic 2000 panelon 04-18-2025 Anion gap [Moles/Vol] 10 mmol/L Normal 8-15 [facility] Comment on above: Order Comment: Speci men Type: BLOOD SPECIMENOrdering Facility: [facility] Address: [address] [place] [address] Performed By: #### 2 777-1, 44900-6 ####[facility] LABORATORYCLIA [id number] [place] [address] [place] Calcium [Mass/Vol] 8.0 mg/dL Low 8.5-10.2 [facility] Comment on above: Order Comment: Speci men Type: BLOOD SPECIMENOrdering Facility: [facility] Address: [address] [place] [address] Performed By: #### 2 777-1, 91267-3 ####[facility] LABORATORYCLIA [id number] [place] [address] [place] Chloride [Moles/Vol] 99 mmol/L Normal 98-107 [facility] Comment on above: Order Comment: Speci men Type: BLOOD SPECIMENOrdering Facility: [facility] Address: [address] [place] [address] Performed By: #### 2 777-1, 64263-9 ####[facility] LABORATORYCLIA [id number] [place] [id number] [place] CO2 [Moles/Vol] 23 mmol/L Normal 22-30 [facility] Comment on above: Order Comment: Speci men Type: BLOOD SPECIMENOrdering Facility: [facility] Address: [address] [place] [address] Performed By: #### 2 777-1, 24559-1 ####[facility] LABORATORYCLIA [id number] [place] [address] [place] Creatinine [Mass/Vol] 0.53 mg/dL Low 0.58-0.96 [facility] Comment on above: Order Comment: Franco newton Type: BLOOD SPECIMENOrdering Facility: [facility] Address: [address] [facility] [place] [address] Performed By: #### 2 777-1, 87719-0 ####[facility] LABORATORYCLIA [id number] [place] [id number] [place] eGFRcr SerPlBld CKD-EPI 2020 97 mL/min/1.73m??? Normal >=60 [facility] Comment on above: Order Comment: Franco newton Type: BLOOD SPECIMENOrdering Facility: [facility] Address: [address] [place] [address] Result Comment: Yessica mated Glomerular Filtration Rate (eGFR) is calculated using the 2020 CKD-EPI creatinine equation. This equation utilizes serum creatinine, sex, and age as parameters. The creatinine assay has traceable calibration to isotope dilution-mass spectrometry. Refer to KDIGO guidelines for clinical interpretation. In patients with unstable renal function, e.g. those with acute kidney injury, the eGFR may not accurately reflect actual GFR. Performed By: #### 2 777-1, 24735-5 ####[facility] LABORATORYCLIA [id number] [place] [address] [place] Glucose [Mass/Vol] 194 mg/dL High 74-99 [facility] Comment on above: Order Comment: Franco aman Type: BLOOD SPECIMENOrdering Facility: [facility] Address: [address] [place] [address] Result Comment: The [place] [employer] (ADA) provides guidance for cutoff values for fasting glucose and random glucose. The ADA defines fasting as no caloric intake for at least 8 hours. Fasting plasma glucose results between 100 to 125 mg/dL indicate increased risk for diabetes (prediabetes).Fasting plasma glucose results greater than or equal to 126 mg/dL meet the criteria for diagnosis of diabetes. In the absence of unequivocal hyperglycemia, results should be confirmed by repeat testing. In a patient with classic symptoms of hyperglycemia or hyperglycemic crisis, random plasma glucose results greater than or equal to 200 mg/dL meet the criteria for diagnosis of diabetes.Reference: Standards of Medical Care in Diabetes 2016, [place] [employer]. Diabetes Care. 2016.39(Suppl 1). Performed By: #### 2 777-1, 12941-4 ####[facility] LABORATORYCLIA [id number] [address] STATES OF [facility] Potassium [Moles/Vol] 4.5 mmol/L Normal 3.7-5.1 [facility] Comment on above: Order Comment: Speci men Type: BLOOD SPECIMENOrdering Facility: [facility] Address: [address] [place] [address] Performed By: #### 2 777-1, 22657-7 ####[facility] LABORATORYCLIA [id number] [address] STATES OF [facility] Sodium [Moles/Vol] 132 mmol/L Low 136-144 [facility] Comment on above: Order Comment: Speci men Type: BLOOD SPECIMENOrdering Facility: [facility] Address: [address] [place] [address] Performed By: #### 2 777-1, 46557-3 ####[facility] LABORATORYCLIA [id number] [address] STATES [facility] Urea nitrogen [Mass/Vol] 18 mg/dL Normal 7-21 [facility] Comment on above: Order Comment: Speci men Type: BLOOD SPECIMENOrdering Facility: [facility] Address: [address] [place] [address] Performed By: #### 2 777-1, 71073-5 ####[facility] LABORATORYCLIA [id number] [address] [place] CBC panel Auto (Bld)on 04-18 Erythrocyte distribution width (RBC) [Ratio] 16.1 % High 11.5-15.0 [facility] Comment on above: Order Comment: Speci men Type: BLOOD SPECIMENOrdering Facility: [facility] Address: [address] [place] [address] Performed By: #### 5 8410-2 ####[facility] LABORATORYCLIA [id number] [place] [address] [place] Hematocrit (Bld) [Volume fraction] 25.0 % Low 36.0-46.0 [facility] Comment on above: Order Comment: Speci men Type: BLOOD SPECIMENOrdering Facility: [facility] Address: [address] [place] [address] Performed By: #### 5 8410-2 ####[facility] LABORATORYCLIA [id number] [address] STATES OF [facility] Hemoglobin (Bld) [Mass/Vol] 8.4 g/dL Low 11.5-15.5 [facility] Comment on above: Order Comment: Speci men Type: BLOOD SPECIMENOrdering Facility: [facility] Address: [address] [place] [address] Performed By: #### 5 8410-2 ####[facility]ORATORYCLIA [id number] [address] [place] MCH (RBC) [Entitic mass] 30.0 pg Normal 26.0-34.0 [facility] Comment on above: Order Comment: Speci men Type: BLOOD SPECIMENOrdering Facility: [facility] Address: [address] [place] [address] Performed By: #### 5 8410-2 ####[facility]ORATORYCLIA [id number] [address] [place] MCHC (RBC) [Mass/Vol] 33.6 g/dL Normal 30.5-36.0 [facility] Comment on above: Order Comment: Speci men Type: BLOOD SPECIMENOrdering Facility: [facility] Address: [address] [place] [address] Performed By: #### 5 8410-2 ####[facility] LABORATORYCLIA [id number] [address] MCV (RBC) [Entitic vol] 89.3 fL Normal 80.0-100.0 [facility] Comment on above: Order Comment: Speci men Type: BLOOD SPECIMENOrdering Facility: [facility] Address: [address] [place] [address] Performed By: #### 5 8410-2 ####[facility] LABORATORYCLIA [id number] [address] [place] Nucleated RBC (Bld) [#/Vol] 0.02 10*3/uL High <0.01 [facility] Comment on above: Order Comment: Speci men Type: BLOOD SPECIMENOrdering Facility: [facility] Address: [address] [place] [address] Performed By: #### 5 8410-2 ####[facility]ORATORYCLIA [id number] [address] [place] Platelet mean volume (Bld) [Entitic vol] 9.3 fL Normal 9.0-12.7 [facility] Comment on above: Order Comment: Speci men Type: BLOOD SPECIMENOrdering Facility: [facility] Address: [address] [place] [address] Performed By: #### 5 8410-2 ####[facility] LABORATORYCLIA [id number] [address] [place] Platelets (Bld) [#/Vol] 182 10*3/uL Normal 150-400 [facility] Comment on above: Order Comment: Speci men Type: BLOOD SPECIMENOrdering Facility: [facility] Address: [address] [place] [address] Performed By: #### 5 8410-2 ####[facility] LABORATORYCLIA [id number] [address] [place] RBC (Bld) [#/Vol] 2.80 10*6/uL Low 3.90-5.20 [facility] Comment on above: Order Comment: Speci men Type: BLOOD SPECIMENOrdering Facility: [facility] Address: [address] [place] [address] Performed By: #### 5 8410-2 ####[facility] LABORATORYCLIA [id number] [address] [place] WBC (Bld) [#/Vol] 11.75 10*3/uL High 3.70-11.00 [facility] Comment on above: Order Comment: Speci men Type: BLOOD SPECIMENOrdering Facility: [facility] Address: [address] [place] [address] Performed By: #### 5 8410-2 ####[facility] LABORATORYCLIA [id number] [place] [address] [place] Hgb Bld-mCncon 04-18-2025 Hemoglobin (Bld) [Mass/Vol] 8.9 g/dL Low 11.5-15.5 [facility] Comment on above: Order Comment: Speci men Type: BLOOD SPECIMENOrdering Facility: [facility] Address: [address] [place] [address] Performed By: #### 7 18-7 ####[facility] LABORATORYCLIA [id number] [place] [address] [place] Phosphate SerPl-mCncon 04-18 Phosphate [Mass/Vol] 3.3 mg/dL Normal 2.7-4.8 [facility] Comment on above: Order Comment: Speci men Type: BLOOD SPECIMENOrdering Facility: [facility] Address: [address] [place] [address] Performed By: #### 2 777-1, 99731-4 ####[facility] LABORATORYCLIA [id number] [place] [address] [place] THERAPY NTon 04-18-2025 THERAPY NT Normal [facility] aPTT PPPon 04-18-2025 aPTT Coag (PPP) [Time] 24.6 s Normal 23.0-32.4 [facility] Comment on above: Order Comment: Speci men Type: BLOOD SPECIMENOrdering Facility: [facility] Address: [address] [place] [address] Performed By: #### 1 4979-9 ####[facility] LABORATORYCLIA [id number] [place] [address] [place] aPTT Coag (PPP) [Time] 53.3 s High 23.0-32.4 [facility] Comment on above: Order Comment: Speci men Type: BLOOD SPECIMENOrdering Facility: [facility] Address: [address] [place] [address] Performed By: #### 1 4979-9 ####[facility] LABORATORYCLIA [id number] [address] [place] aPTT Coag (PPP) [Time] 64.8 s High 23.0-32.4 [facility] Comment on above: Order Comment: Speci men Type: BLOOD SPECIMENOrdering Facility: [facility] Address: [address] [place] [address] Performed By: #### 1 4979-9 ####[facility] LABORATORYCLIA [id number] [place] [address] [place] Basic metabolic 2000 panelon 04-17-2025 Anion gap [Moles/Vol] 7 mmol/L Low 8-15 [facility] Comment on above: Order Comment: Speci men Type: BLOOD SPECIMENOrdering Facility: [facility] Address: [address] [place] [address] Performed By: #### 2 777-1, 35554-7 ####[facility] LABORATORYCLIA [id number] [place] [address] [place] Calcium [Mass/Vol] 8.5 mg/dL Normal 8.5-10.2 [facility] Comment on above: Order Comment: Speci men Type: BLOOD SPECIMENOrdering Facility: [facility] Address: [address] [place] [address] Performed By: #### 2 777-1, 57640-4 ####[facility] LABORATORYCLIA [id number] [address] [place] Chloride [Moles/Vol] 98 mmol/L Normal 98-107 [facility] Comment on above: Order Comment: Speci men Type: BLOOD SPECIMENOrdering Facility: [facility] Address: [address] [place] [address] Performed By: #### 2 777-1, 07312-9 ####[facility] LABORATORYCLIA [id number] [address] [place] CO2 [Moles/Vol] 24 mmol/L Normal 22-30 [facility] Comment on above: Order Comment: Speci men Type: BLOOD SPECIMENOrdering Facility: [facility] Address: [address] [place] [address] Performed By: #### 2 777-1, 37001-9 ####[facility] LABORATORYCLIA [id number] [place] [address] [place] Creatinine [Mass/Vol] 0.66 mg/dL Normal 0.58-0.96 [facility] Comment on above: Order Comment: Speci men Type: BLOOD SPECIMENOrdering Facility: [facility] Address: [address] [place] [address] Performed By: #### 2 777-1, 88282-9 ####[facility] LABORATORYCLIA [id number] [address] eGFRcr SerPlBld CKD-EPI 2020 92 mL/min/1.73m??? Normal >=60 [facility] Comment on above: Order Comment: Speci men Type: BLOOD SPECIMENOrdering Facility: [facility] Address: [address] [place] [address] Result Comment: Yessica mated Glomerular Filtration Rate (eGFR) is calculated using the 2020 CKD-EPI creatinine equation. This equation utilizes serum creatinine, sex, and age as parameters. The creatinine assay has traceable calibration to isotope dilution-mass spectrometry. Refer to KDIGO guidelines for clinical interpretation. In patients with unstable renal function, e.g. those with acute kidney injury, the eGFR may not accurately reflect actual GFR. Performed By: #### 2 777-1, 09067-5 ####[facility] LABORATORYCLIA [id number] [place] [address] [place] Glucose [Mass/Vol] 199 mg/dL High 74-99 [facility] Comment on above: Order Comment: Speci men Type: BLOOD SPECIMENOrdering Facility: [facility] Address: [address] [place] [address] Result Comment: The [place] Diabetes Association (ADA) provides guidance for cutoff values for fasting glucose and random glucose. The ADA defines fasting as no caloric intake for at least 8 hours. Fasting plasma glucose results between 100 to 125 mg/dL indicate increased risk for diabetes (prediabetes).Fasting plasma glucose results greater than or equal to 126 mg/dL meet the criteria for diagnosis of diabetes. In the absence of unequivocal hyperglycemia, results should be confirmed by repeat testing. In a patient with classic symptoms of hyperglycemia or hyperglycemic crisis, random plasma glucose results greater than or equal to 200 mg/dL meet the criteria for diagnosis of diabetes.Reference: Standards of Medical Care in Diabetes 2016, [employer] Diabetes Association. Diabetes Care. 2016.39(Suppl 1). Performed By: #### 2 777-1, 31008-7 ####[facility] LABORATORYCLIA [id number] [place] [address] [place] Potassium [Moles/Vol] 4.6 mmol/L Normal 3.7-5.1 [facility] Comment on above: Order Comment: Speci men Type: BLOOD SPECIMENOrdering Facility: [facility] Address: [address] [place] [address] Performed By: #### 2 777-1, 41148-0 ####[facility] LABORATORYCLIA [id number] [place] [address] [place] Sodium [Moles/Vol] 129 mmol/L Low 136-144 [facility] Comment on above: Order Comment: Franco newton Type: BLOOD SPECIMENOrdering Facility: [facility] Address: [address] [place] [address] Performed By: #### 2 777-1, 81811-3 ####[facility] LABORATORYCLIA [id number] [place] [address] [place] Urea nitrogen [Mass/Vol] 22 mg/dL High 7-21 [facility] Comment on above: Order Comment: Franco men Type: BLOOD SPECIMENOrdering Facility: [facility] Address: [address] [place] [address] Performed By: #### 2 777-1, 24553-4 ####[facility] LABORATORYCLIA [id number] [address] [place] CASE MANAGEMon 04-17-2025 CASE MANAGEM Normal [facility] CBC panel Auto (Bld)on 04-17 Erythrocyte distribution width (RBC) [Ratio] 15.2 % High 11.5-15.0 [facility] Comment on above: Order Comment: Speci men Type: BLOOD SPECIMENOrdering Facility: [facility] Address: [address] [place] [address] Performed By: #### 5 8410-2 ####[facility] LABORATORYCLIA [id number] [address] Hematocrit (Bld) [Volume fraction] 27.4 % Low 36.0-46.0 [facility] Comment on above: Order Comment: Speci men Type: BLOOD SPECIMENOrdering Facility: [facility] Address: [address] [place] [address] Performed By: #### 5 8410-2 ####[facility] LABORATORYCLIA [id number] [address] Hemoglobin (Bld) [Mass/Vol] 9.4 g/dL Low 11.5-15.5 [facility] Comment on above: Order Comment: Speci men Type: BLOOD SPECIMENOrdering Facility: [facility] Address: [address] [place] [address] Performed By: #### 5 8410-2 ####[facility] LABORATORYCLIA [id number] [address] STATES [facility] MCH (RBC) [Entitic mass] 30.0 pg Normal 26.0-34.0 [facility] Comment on above: Order Comment: Speci men Type: BLOOD SPECIMENOrdering Facility: [facility] Address: [address] [place] [address] Performed By: #### 5 8410-2 ####[facility] LABORATORYCLIA [id number] [address] [place] MCHC (RBC) [Mass/Vol] 34.3 g/dL Normal 30.5-36.0 [facility] Comment on above: Order Comment: Speci men Type: BLOOD SPECIMENOrdering Facility: [facility] Address: [address] [place] [address] Performed By: #### 5 8410-2 ####[facility] LABORATORYCLIA [id number] [address] OF [facility] MCV (RBC) [Entitic vol] 87.5 fL Normal 80.0-100.0 [facility] Comment on above: Order Comment: Speci men Type: BLOOD SPECIMENOrdering Facility: [facility] Address: [address] [place] [address] Performed By: #### 5 8410-2 ####[facility] LABORATORYCLIA [id number] [address] Nucleated RBC (Bld) [#/Vol] 10*3/uL Normal <0.01 [facility] Comment on above: Order Comment: Speci men Type: BLOOD SPECIMENOrdering Facility: [facility] Address: [address] [place] [address] Performed By: #### 5 8410-2 ####[facility] LABORATORYCLIA [id number] [address] Platelet mean volume (Bld) [Entitic vol] 9.9 fL Normal 9.0-12.7 [facility] Comment on above: Order Comment: Speci men Type: BLOOD SPECIMENOrdering Facility: [facility] Address: [address] [place] [address] Performed By: #### 5 8410-2 ####[facility] LABORATORYCLIA [id number] [address] Platelets (Bld) [#/Vol] 185 10*3/uL Normal 150-400 [facility] Comment on above: Order Comment: Speci men Type: BLOOD SPECIMENOrdering Facility: [facility] Address: [address] [place] [address] Performed By: #### 5 8410-2 ####[facility] LABORATORYCLIA [id number] [address] RBC (Bld) [#/Vol] 3.13 10*6/uL Low 3.90-5.20 [facility] Comment on above: Order Comment: Speci men Type: BLOOD SPECIMENOrdering Facility: [facility] Address: [address] [place] [address] Performed By: #### 5 8410-2 ####[facility] LABORATORYCLIA [id number] [address] [place] WBC (Bld) [#/Vol] 11.87 10*3/uL High 3.70-11.00 [facility] Comment on above: Order Comment: Speci men Type: BLOOD SPECIMENOrdering Facility: [facility] Address: [address] [place] [address] Performed By: #### 5 8410-2 ####[facility] LABORATORYCLIA [id number] [address] OF [facility] CNCOon 04-17-2025 CNCO Letter Text Normal [facility] Hgb Bld-ncon 04-17-2025 Hemoglobin (Bld) [Mass/Vol] 8.3 g/dL Low 11.5-15.5 [facility] Comment on above: Order Comment: Speci men Type: BLOOD SPECIMENOrdering Facility: [facility] Address: [address] [place] [address] Performed By: #### 7 18-7 ####[facility] LABORATORYCLIA [id number] [address] OF [facility] Phosphate SerPl-mCncon 04-17 Phosphate [Mass/Vol] 2.9 mg/dL Normal 2.7-4.8 [facility] Comment on above: Order Comment: Speci men Type: BLOOD SPECIMENOrdering Facility: [facility] Address: [address] [place] [address] Performed By: #### 2 777-1, 35072-7 ####[facility] LABORATORYCLIA [id number] [address] OF [facility] THERAPY NTon 04-17-2025 THERAPY NT Normal [facility] THERAPY NT Normal [facility] aPTT PPPon 04-17-2025 aPTT Coag (PPP) [Time] s High 23.0-32.4 [facility] Comment on above: Order Comment: Speci men Type: BLOOD SPECIMENOrdering Facility: [facility] Address: [address] [place] [address] Performed By: #### 1 4979-9 ####[facility]ORATORYCLIA [id number] [address] aPTT Coag (PPP) [Time] 49.3 s High 23.0-32.4 [facility] Comment on above: Order Comment: Speci men Type: BLOOD SPECIMENOrdering Facility: [facility] Address: [address] [place] [address] Performed By: #### 1 4979-9 ####[facility] LABORATORYCLIA [id number] [address] aPTT Coag (PPP) [Time] 96.7 s High 23.0-32.4 [facility] Comment on above: Order Comment: Speci men Type: BLOOD SPECIMENOrdering Facility: [facility] Address: [address] [place] [address] Performed By: #### 1 4979-9 ####[facility] LABORATORYCLIA [id number] [address] aPTT Coag (PPP) [Time] s High 23.0-32.4 [facility] Comment on above: Order Comment: Speci men Type: BLOOD SPECIMENOrdering Facility: [facility] Address: [address] [place] [address] Performed By: #### 1 4979-9 ####[facility]ORATORYCLIA [id number] [address] aPTT Coag (PPP) [Time] 30.3 s Normal 23.0-32.4 [facility] Comment on above: Order Comment: Speci men Type: BLOOD SPECIMENOrdering Facility: [facility] Address: [address] [place] [address] Performed By: #### 1 4979-9 ####[facility] LABORATORYCLIA [id number] [place] [id number] [facility] aPTT Coag (PPP) [Time] 26.6 s Normal 23.0-32.4 [facility] Comment on above: Order Comment: Speci men Type: BLOOD SPECIMENOrdering Facility: [facility] Address: [address] [place] [address] Performed By: #### 1 4979-9 ####[facility] LABORATORYCLIA [id number] [place] [address] [facility] [place] Basic metabolic 2000 panelon 04-16-2025 Anion gap [Moles/Vol] 10 mmol/L Normal 8-15 [facility] Comment on above: Order Comment: Speci men Type: BLOOD SPECIMENOrdering Facility: [facility] Address: [address] [place] [address] Performed By: #### 2 4321-2, 2777-1, 2-7, 86793-9, 90432-3 ####[facility] LABORATORYCLIA [id number] [place] [address] [place] Calcium [Mass/Vol] 7.9 mg/dL Low 8.5-10.2 [facility] Comment on above: Order Comment: Speci men Type: BLOOD SPECIMENOrdering Facility: [facility] Address: [address] [place] [address] Performed By: #### 2 4321-2, 2777-1, 4542-7, 61292-7, 07053-5 ####[facility] LABORATORYCLIA [id number] [place] [id number] [place] Chloride [Moles/Vol] 96 mmol/L Low 98-107 [facility] Comment on above: Order Comment: Speci men Type: BLOOD SPECIMENOrdering Facility: [facility] Address: [address] [place] [address] Performed By: #### 2 4321-2, 2777-1, 4542-7, 62759-1, 09243-7 ####[facility]ITALCLIA [id number] [place] [address] [place] [facility] CO2 [Moles/Vol] 22 mmol/L Normal 22-30 [facility] Comment on above: Order Comment: Speci men Type: BLOOD SPECIMENOrdering Facility: [facility] Address: [address] [place] [address] Performed By: #### 2 4321-2, 2777-1, 4541-7, , 43113-9 ####[facility]ITALCLIA [id number] [place] [address] [place] [facility] Creatinine [Mass/Vol] 0.79 mg/dL Normal 0.58-0.96 [facility] Comment on above: Order Comment: Speci men Type: BLOOD SPECIMENOrdering Facility: [facility] Address: [address] [place] [address] Performed By: #### 2 4321-2, 2777-1, 4541-7, , 79595-0 ####[facility]ALTHIA [id number] [place] [id number] [place] eGFRcr SerPlBld CKD-EPI 2020 79 mL/min/1.73m??? Normal >=60 [facility] Comment on above: Order Comment: Speci men Type: BLOOD SPECIMENOrdering Facility: [facility] Address: [address] [place] [address] Result Comment: Yessica mated Glomerular Filtration Rate (eGFR) is calculated using the 2020 CKD-EPI creatinine equation. This equation utilizes serum creatinine, sex, and age as parameters. The creatinine assay has traceable calibration to isotope dilution-mass spectrometry. Refer to KDIGO guidelines for clinical interpretation. In patients with unstable renal function, e.g. those with acute kidney injury, the eGFR may not accurately reflect actual GFR. Performed By: #### 2 4321-2, 2777-1, 2-7, 60160-5, 50662-0 ####[facility] LABORATORYCLIA [id number] [place] [address] [place] Glucose [Mass/Vol] 204 mg/dL High 74-99 [facility] Comment on above: Order Comment: Speci men Type: BLOOD SPECIMENOrdering Facility: [facility] Address: [address] [place] [address] Result Comment: The [place] Diabetes Association (ADA) provides guidance for cutoff values for fasting glucose and random glucose. The ADA defines fasting as no caloric intake for at least 8 hours. Fasting plasma glucose results between 100 to 125 mg/dL indicate increased risk for diabetes (prediabetes).Fasting plasma glucose results greater than or equal to 126 mg/dL meet the criteria for diagnosis of diabetes. In the absence of unequivocal hyperglycemia, results should be confirmed by repeat testing. In a patient with classic symptoms of hyperglycemia or hyperglycemic crisis, random plasma glucose results greater than or equal to 200 mg/dL meet the criteria for diagnosis of diabetes.Reference: Standards of Medical Care in Diabetes 2016, [place] Diabetes Association. Diabetes Care. 2016.39(Suppl 1). Performed By: #### 2 4321-2, 2777-1, 4541-7, , 21636-1 ####[facility] LABORATORYCLIA [id number] [place] [address] [place] Potassium [Moles/Vol] 4.6 mmol/L Normal 3.7-5.1 [facility] Comment on above: Order Comment: Víctori men Type: BLOOD SPECIMENOrdering Facility: [facility] Address: [address] [place] [address] Performed By: #### 2 4321-2, 2777-1, 4541-7, , 35029-6 ####[facility] LABORATORYCLIA [id number] [place] [address] [place] Sodium [Moles/Vol] 128 mmol/L Low 136-144 [facility] Comment on above: Order Comment: Speci men Type: BLOOD SPECIMENOrdering Facility: [facility] Address: [address] [place] [address] Performed By: #### 2 4321-2, 2777-1, 2-7, , 41147-3 ####[facility] LABORATORYCLIA [id number] [place] [address] [place] Urea nitrogen [Mass/Vol] 34 mg/dL High 7-21 [facility] Comment on above: Order Comment: Speci men Type: BLOOD SPECIMENOrdering Facility: [facility] Address: [address] [place] [address] Performed By: #### 2 4321-2, 2777-1, 4542-7, 08937-7, 92795-8 ####[facility] LABORATORYCLIA [id number] [address] STATES OF [facility] CBC panel Auto (Bld)on 04-16 Erythrocyte distribution width (RBC) [Ratio] 14.7 % Normal 11.5-15.0 [facility] Comment on above: Order Comment: Speci men Type: BLOOD SPECIMENOrdering Facility: [facility] Address: [address] [place] [address] Performed By: #### 5 8410-2 ####[facility]ITALCLIA [id number] [address] [place] Hematocrit (Bld) [Volume fraction] 21.1 % Low 36.0-46.0 [facility] Comment on above: Order Comment: Speci men Type: BLOOD SPECIMENOrdering Facility: [facility] Address: [address] [place] [address] Performed By: #### 5 8410-2 ####[facility]ORATORYCLIA [id number] [address] [place] Hemoglobin (Bld) [Mass/Vol] 7.1 g/dL Low 11.5-15.5 [facility] Comment on above: Order Comment: Speci men Type: BLOOD SPECIMENOrdering Facility: [facility] Address: [address] [place] [address] Performed By: #### 5 8410-2 ####[facility]ORATORYCLIA [id number] [address] [place] MCH (RBC) [Entitic mass] 28.6 pg Normal 26.0-34.0 [facility] Comment on above: Order Comment: Speci men Type: BLOOD SPECIMENOrdering Facility: [facility] Address: [address] [place] [address] Performed By: #### 5 8410-2 ####[facility] LABORATORYCLIA [id number] [address] MCHC (RBC) [Mass/Vol] 33.6 g/dL Normal 30.5-36.0 [facility] Comment on above: Order Comment: Speci men Type: BLOOD SPECIMENOrdering Facility: [facility] Address: [address] [place] [address] Performed By: #### 5 8410-2 ####[facility] LABORATORYCLIA [id number] [address] [place] MCV (RBC) [Entitic vol] 85.1 fL Normal 80.0-100.0 [facility] Comment on above: Order Comment: Speci men Type: BLOOD SPECIMENOrdering Facility: [facility] Address: [address] [place] [address] Performed By: #### 5 8410-2 ####[facility] LABORATORYCLIA [id number] [address] Nucleated RBC (Bld) [#/Vol] 10*3/uL Normal <0.01 [facility] Comment on above: Order Comment: Speci men Type: BLOOD SPECIMENOrdering Facility: [facility] Address: [address] [place] [address] Performed By: #### 5 8410-2 ####[facility] LABORATORYCLIA [id number] [address] Platelet mean volume (Bld) [Entitic vol] 10.2 fL Normal 9.0-12.7 [facility] Comment on above: Order Comment: Speci men Type: BLOOD SPECIMENOrdering Facility: [facility] Address: [address] [place] [address] Performed By: #### 5 8410-2 ####[facility] LABORATORYCLIA [id number] [address] OF [facility] Platelets (Bld) [#/Vol] 150 10*3/uL Normal 150-400 [facility] Comment on above: Order Comment: Speci men Type: BLOOD SPECIMENOrdering Facility: [facility] Address: [address] [place] [address] Performed By: #### 5 8410-2 ####[facility]ORATORYCLIA [id number] [place] [address] [place] RBC (Bld) [#/Vol] 2.48 10*6/uL Low 3.90-5.20 [facility] Comment on above: Order Comment: Speci men Type: BLOOD SPECIMENOrdering Facility: [facility] Address: [address] [place] [address] Performed By: #### 5 8410-2 ####[facility] LABORATORYCLIA [id number] [address] STATES OF [facility] WBC (Bld) [#/Vol] 14.81 10*3/uL High 3.70-11.00 [facility] Comment on above: Order Comment: Speci men Type: BLOOD SPECIMENOrdering Facility: [facility] Address: [address] [place] [address] Performed By: #### 5 8410-2 ####[facility]ORATORYCLIA [id number] [address] [place] Haptoglob SerPl-mCncon 04-16 Haptoglobin [Mass/Vol] 128 mg/dL Normal 31-238 [facility] Comment on above: Order Comment: Speci men Type: BLOOD SPECIMENOrdering Facility: [facility] Address: [address] [place] [address] Performed By: #### 2 4321-2, 2777-1, 4542-7, 39710-8, 45035-7 ####[facility]ORATORYCLIA [id number] [address] [place] Hepatic function 2000 panelo n 04-16-2025 Albumin [Mass/Vol] 2.8 g/dL Low 3.9-4.9 [facility] Comment on above: Order Comment: Speci men Type: BLOOD SPECIMENOrdering Facility: [facility] Address: [address] [place] [address] Performed By: #### 2 4321-2, 2777-1, 4542-7, 46434-0, 61275-9 ####[facility]ORATORYCLIA [id number] [place] [address] [place] ALP [Catalytic activity/Vol] 53 U/L Normal 34-123 [facility] Comment on above: Order Comment: Speci men Type: BLOOD SPECIMENOrdering Facility: [facility] Address: [address] [place] [address] Performed By: #### 2 4321-2, 2777-1, 4541-7, 94307-9, 78129-2 ####[facility] LABORATORYCLIA [id number] [place] [address] [place] ALT With P-5'-P [Catalytic activity/Vol] U/L Low 7-38 [facility] Comment on above: Order Comment: Speci men Type: BLOOD SPECIMENOrdering Facility: [facility] Address: [address] [place] [address] Performed By: #### 2 4321-2, 2777-1, 4541-7, , 20748-0 ####[facility]ORATORYCLIA [id number] [place] [address] [place] AST With P-5'-P [Catalytic activity/Vol] 20 U/L Normal 13-35 [facility] Comment on above: Order Comment: Speci men Type: BLOOD SPECIMENOrdering Facility: [facility] Address: [address] [place] [address] Performed By: #### 2 4321-2, 2777-1, 4542-7, 26979-9, 92944-4 ####[facility]ORATORYCLIA [id number] [place] [address] [place] [facility] Bilirubin [Mass/Vol] 0.5 mg/dL Normal 0.2-1.3 [facility] Comment on above: Order Comment: Speci men Type: BLOOD SPECIMENOrdering Facility: [facility] Address: [address] [place] [address] Performed By: #### 2 4321-2, 2777-1, 4542-7, 53849-3, 98698-2 ####[facility] LABORATORYCLIA [id number] [place] [id number] [place] Bilirubin.conjugated [Mass/Vol] 0.2 mg/dL Normal <0.3 [facility] Comment on above: Order Comment: Speci men Type: BLOOD SPECIMENOrdering Facility: [facility] Address: [address] [place] [address] Performed By: #### 2 4321-2, 2777-1, 4542-7, 77049-4, 23663-2 ####[facility] LABORATORYCLIA [id number] [place] [address] [place] [place] Protein [Mass/Vol] 5.0 g/dL Low 6.3-8.0 [facility] Comment on above: Order Comment: Speci men Type: BLOOD SPECIMENOrdering Facility: [facility] Address: [address] [place] [address] Performed By: #### 2 4321-2, 2777-1, 4542-7, 27662-7, 33251-6 ####[facility] LABORATORYCLIA [id number] [place] [id number] [place] Hgb Bld-mCncon 04-16-2025 Hemoglobin (Bld) [Mass/Vol] 9.0 g/dL Low 11.5-15.5 [facility] Comment on above: Order Comment: Speci men Type: BLOOD SPECIMENOrdering Facility: [facility] Address: [address] [place] [address] Performed By: #### 7 18-7 ####[facility] LABORATORYCLIA [id number] [place] [id number] [place] Hemoglobin (Bld) [Mass/Vol] 6.6 g/dL Low 11.5-15.5 [facility] Comment on above: Order Comment: Speci men Type: BLOOD SPECIMENOrdering Facility: [facility] Address: [address] [place] [address] Performed By: #### 7 18-7 ####[facility] LABORATORYCLIA [id number] [place] [address] [place] LDH SerPl-cCncon 04-16-2025 LDH [Catalytic activity/Vol] 256 U/L High 135-214 [facility] Comment on above: Order Comment: Speci men Type: BLOOD SPECIMENOrdering Facility: [facility] Address: [address] [place] [address] Performed By: #### 2 532-0 ####[facility] LABORATORYCLIA [id number] [place] [address] [place] Magnesium SerPl-mCncon 04-16 Magnesium [Mass/Vol] 2.1 mg/dL Normal 1.7-2.3 [facility] Comment on above: Order Comment: Speci men Type: BLOOD SPECIMENOrdering Facility: [facility] Address: [address] [place] [address] Performed By: #### 2 4321-2, 2777-1, 454-7, 45178-2, 45255-2 ####[facility] LABORATORYCLIA [id number] [place] [address] [place] Phosphate SerPl-mCncon 04-16 Phosphate [Mass/Vol] 3.5 mg/dL Normal 2.7-4.8 [facility] Comment on above: Order Comment: Speci men Type: BLOOD SPECIMENOrdering Facility: [facility] Address: [address] [place] [address] Performed By: #### 2 4321-2, 2777-1, 2-7, 48994-7, 75096-6 ####[facility] LABORATORYCLIA [id number] [place] [address] [place] THERAPY NTon 04-16-2025 THERAPY NT Normal [facility] TYPE + SCREENon 04-16-2025 ABO O Normal [facility] Comment on above: Order Comment: Speci men Type: BLOOD SPECIMENOrdering Facility: [facility] Address: [address] [place] [address] Performed By: #### T SCR ####[facility] BLOOD BANKCLIA [id number] [address] Rh Nom (Bld) Positive Normal [facility] Comment on above: Order Comment: Speci men Type: BLOOD SPECIMENOrdering Facility: [facility] Address: [address] [place] [address] Performed By: #### T SCR ####[facility] BLOOD BANKCLIA [id number] [address] TYPE AND SCREEN EXPIRATION 04/19/2025 23:59 Normal [facility] Comment on above: Order Comment: Speci men Type: BLOOD SPECIMENOrdering Facility: [facility] Address: [address] [place] [address] Performed By: #### T SCR ####[facility] BLOOD BANKCLIA [id number] [address] OF [place] aPTT PPPon 04-16-2025 aPTT Coag (PPP) [Time] 24.8 s Normal 23.0-32.4 [facility] Comment on above: Order Comment: Speci men Type: BLOOD SPECIMENOrdering Facility: [facility] Address: [address] [place] [address] Performed By: #### 1 4979-9 ####[facility] LABORATORYCLIA [id number] [address] aPTT Coag (PPP) [Time] 66.6 s High 23.0-32.4 [facility] Comment on above: Order Comment: Speci men Type: BLOOD SPECIMENOrdering Facility: [facility] Address: [address] [place] [address] Performed By: #### 1 4979-9 ####[facility] LABORATORYCLIA [id number] [place] [address] [place] aPTT Coag (PPP) [Time] s High 23.0-32.4 [facility] Comment on above: Order Comment: Speci men Type: BLOOD SPECIMENOrdering Facility: [facility] Address: [address] [place] [address] Performed By: #### 1 4979-9 ####[facility] LABORATORYCLIA [id number] [place] [address] [place] Basic metabolic 2000 panelon 04-15-2025 Anion gap [Moles/Vol] 9 mmol/L Normal 8-15 [facility] Comment on above: Order Comment: Speci men Type: BLOOD SPECIMENOrdering Facility: [facility] Address: [address] [place] [address] Performed By: #### 2 777-1, , 03047-1 ####[facility] LABORATORYCLIA [id number] [place] [address] [place] Calcium [Mass/Vol] 7.7 mg/dL Low 8.5-10.2 [facility] Comment on above: Order Comment: Speci men Type: BLOOD SPECIMENOrdering Facility: [facility] Address: [address] [place] [address] Performed By: #### 2 777-1, , ####[facility] LABORATORYCLIA [id number] [place] [address] [place] Chloride [Moles/Vol] 103 mmol/L Normal 98-107 [facility] Comment on above: Order Comment: Speci men Type: BLOOD SPECIMENOrdering Facility: [facility] Address: [address] [place] [address] Performed By: #### 2 777-1, , ####[facility] LABORATORYCLIA [id number] [place] [address] [place] CO2 [Moles/Vol] 22 mmol/L Normal 22-30 [facility] Comment on above: Order Comment: Speci men Type: BLOOD SPECIMENOrdering Facility: [facility] Address: [address] [place] [address] Performed By: #### 2 777-1, , ####[facility]IA [id number] [place] [id number] [place] [facility] Creatinine [Mass/Vol] 0.86 mg/dL Normal 0.58-0.96 [facility] Comment on above: Order Comment: Speci men Type: BLOOD SPECIMENOrdering Facility: [facility] Address: [address] [place] [address] Performed By: #### 2 777-1, , ####[facility]ALTHIA [id number] [address] [place] eGFRcr SerPlBld CKD-EPI 2020 71 mL/min/1.73m??? Normal >=60 [facility] Comment on above: Order Comment: Speci men Type: BLOOD SPECIMENOrdering Facility: [facility] Address: [address] [place] [address] Result Comment: Yessica mated Glomerular Filtration Rate (eGFR) is calculated using the 2020 CKD-EPI creatinine equation. This equation utilizes serum creatinine, sex, and age as parameters. The creatinine assay has traceable calibration to isotope dilution-mass spectrometry. Refer to KDIGO guidelines for clinical interpretation. In patients with unstable renal function, e.g. those with acute kidney injury, the eGFR may not accurately reflect actual GFR. Performed By: #### 2 777-1, , ####[facility] LABORATORYIA [id number] [place] [id number] [place] Glucose [Mass/Vol] 158 mg/dL High 74-99 [facility] Comment on above: Order Comment: Speci men Type: BLOOD SPECIMENOrdering Facility: [facility] Address: [address] [place] [address] Result Comment: The [place] Diabetes Association (ADA) provides guidance for cutoff values for fasting glucose and random glucose. The ADA defines fasting as no caloric intake for at least 8 hours. Fasting plasma glucose results between 100 to 125 mg/dL indicate increased risk for diabetes (prediabetes).Fasting plasma glucose results greater than or equal to 126 mg/dL meet the criteria for diagnosis of diabetes. In the absence of unequivocal hyperglycemia, results should be confirmed by repeat testing. In a patient with classic symptoms of hyperglycemia or hyperglycemic crisis, random plasma glucose results greater than or equal to 200 mg/dL meet the criteria for diagnosis of diabetes.Reference: Standards of Medical Care in Diabetes 2016, [place] Diabetes Association. Diabetes Care. 2016.39(Suppl 1). Performed By: #### 2 777-1, , ####[facility] LABORATORYCLIA [id number] [place] [address] [place] Potassium [Moles/Vol] 4.6 mmol/L Normal 3.7-5.1 [facility] Comment on above: Order Comment: Franco newton Type: BLOOD SPECIMENOrdering Facility: [facility] Address: [address] [place] [address] Performed By: #### 2 777-1, , ####[facility] LABORATORYCLIA [id number] [place] [address] [place] Sodium [Moles/Vol] 134 mmol/L Low 136-144 [facility] Comment on above: Order Comment: Franco newton Type: BLOOD SPECIMENOrdering Facility: [facility] Address: [address] [place] [address] Performed By: #### 2 777-1, , ####[facility] LABORATORYCLIA [id number] [place] [address] [place] Urea nitrogen [Mass/Vol] 31 mg/dL High 7-21 [facility] Comment on above: Order Comment: Franco newton Type: BLOOD SPECIMENOrdering Facility: [facility] Address: [address] [place] [address] Performed By: #### 2 777-1, , 13348-7 ####[facility] LABORATORYCLIA [id number] [place] [address] [place] CBC panel Auto (Bld)on 04-15 Erythrocyte distribution width (RBC) [Ratio] 14.6 % Normal 11.5-15.0 [facility] Comment on above: Order Comment: Speci men Type: BLOOD SPECIMENOrdering Facility: [facility] Address: [address] [place] [address] Performed By: #### 5 8410-2 ####[facility] LABORATORYCLIA [id number] [address] OF [facility] Hematocrit (Bld) [Volume fraction] 23.4 % Low 36.0-46.0 [facility] Comment on above: Order Comment: Speci men Type: BLOOD SPECIMENOrdering Facility: [facility] Address: [address] [place] [address] Performed By: #### 5 8410-2 ####[facility] LABORATORYCLIA [id number] [address] OF [facility] Hemoglobin (Bld) [Mass/Vol] 8.0 g/dL Low 11.5-15.5 [facility] Comment on above: Order Comment: Speci men Type: BLOOD SPECIMENOrdering Facility: [facility] Address: [address] [place] [address] Performed By: #### 5 8410-2 ####[facility] LABORATORYCLIA [id number] [address] [place] MCH (RBC) [Entitic mass] 29.2 pg Normal 26.0-34.0 [facility] Comment on above: Order Comment: Speci men Type: BLOOD SPECIMENOrdering Facility: [facility] Address: [address] [place] [address] Performed By: #### 5 8410-2 ####[facility] LABORATORYCLIA [id number] [address] [place] MCHC (RBC) [Mass/Vol] 34.2 g/dL Normal 30.5-36.0 [facility] Comment on above: Order Comment: Speci men Type: BLOOD SPECIMENOrdering Facility: [facility] Address: [address] [place] [address] Performed By: #### 5 8410-2 ####[facility] LABORATORYCLIA [id number] [address] MCV (RBC) [Entitic vol] 85.4 fL Normal 80.0-100.0 [facility] Comment on above: Order Comment: Speci men Type: BLOOD SPECIMENOrdering Facility: [facility] Address: [address] [place] [address] Performed By: #### 5 8410-2 ####[facility] LABORATORYCLIA [id number] [address] OF [facility] Nucleated RBC (Bld) [#/Vol] 10*3/uL Normal <0.01 [facility] Comment on above: Order Comment: Speci men Type: BLOOD SPECIMENOrdering Facility: [facility] Address: [address] [place] [address] Performed By: #### 5 8410-2 ####[facility] LABORATORYCLIA [id number] [address] Platelet mean volume (Bld) [Entitic vol] 10.0 fL Normal 9.0-12.7 [facility] Comment on above: Order Comment: Speci men Type: BLOOD SPECIMENOrdering Facility: [facility] Address: [address] [place] [address] Performed By: #### 5 8410-2 ####[facility] LABORATORYCLIA [id number] [address] Platelets (Bld) [#/Vol] 160 10*3/uL Normal 150-400 [facility] Comment on above: Order Comment: Speci men Type: BLOOD SPECIMENOrdering Facility: [facility] Address: [address] [place] [address] Performed By: #### 5 8410-2 ####[facility] LABORATORYCLIA [id number] [address] [place] RBC (Bld) [#/Vol] 2.74 10*6/uL Low 3.90-5.20 [facility] Comment on above: Order Comment: Speci men Type: BLOOD SPECIMENOrdering Facility: [facility] Address: [address] [place] [address] Performed By: #### 5 8410-2 ####[facility] LABORATORYCLIA [id number] [address] [place] WBC (Bld) [#/Vol] 15.46 10*3/uL High 3.70-11.00 [facility] Comment on above: Order Comment: Speci men Type: BLOOD SPECIMENOrdering Facility: [facility] Address: [address] [place] [address] Performed By: #### 5 8410-2 ####[facility] LABORATORYCLIA [id number] [address] [place] Hgb Bld-ncon 04-15-2025 Hemoglobin (Bld) [Mass/Vol] 7.6 g/dL Low 11.5-15.5 [facility] Comment on above: Order Comment: Speci men Type: BLOOD SPECIMENOrdering Facility: [facility] Address: [address] [place] [address] Performed By: #### 7 18-7 ####[facility] LABORATORYCLIA [id number] [address] [place] Hemoglobin (Bld) [Mass/Vol] 8.3 g/dL Low 11.5-15.5 [facility] Comment on above: Order Comment: Speci men Type: BLOOD SPECIMENOrdering Facility: [facility] Address: [address] [place] [address] Performed By: #### 7 18-7 ####[facility] LABORATORYCLIA [id number] [place] [address] [place] Magnesium SerPl-ncon 04-15 Magnesium [Mass/Vol] 2.0 mg/dL Normal 1.7-2.3 [facility] Comment on above: Order Comment: Speci men Type: BLOOD SPECIMENOrdering Facility: [facility] Address: [address] [place] [address] Performed By: #### 2 777-1, 54454-7, 81009-8 ####[facility] LABORATORYCLIA [id number] [place] [id number] [place] NUTRITIONon 04-15-2025 NUTRITION Normal [facility] PT panel Coag (PPP)on 2024 INR Coag (PPP) [Relative time] 1.0 {INR} Normal 0.9-1.3 [facility] Comment on above: Order Comment: Speci men Type: BLOOD SPECIMENOrdering Facility: [facility] Address: [address] [place] [address] Result Comment: Tequila min K Antagonist (VKA) Therapeutic Range: INR 2 to 3 (Target INR of 2.5)Note: For patients treated with VKA drugs, such as warfarin, the [employer] 2012 Guideline recommends a therapeutic INR range of 2 to 3 (target INR of 2.5). This recommendation includes high-risk patients with antiphospholipid syndrome with previous arterial or venous thromboembolism, current-generation mechanical or bioprosthetic aortic heart valve replacement.Note: Patients with mechanical aortic valve replacement and additional risk factors for thromboembolic events (atrial fibrillation, previous thromboembolism, LV dysfunction, hypercoagulable conditions) or an older generation mechanical AVR (i.e., ball in-Cage) or any mechanical MVR should have a INR therapeutic range of 2.5 to 3.5 (target INR of 3).Mt GH, et al. Chest 2012, 141:7S-47SNishimura RA, et al. [facility] 2017, 70: 252-289 Performed By: #### 1 4979-9, 42412-9 ####[facility] LABORATORYCLIA [id number] [place] [address] [place] PT Coag (PPP) [Time] 10.6 s Normal 9.7-13.0 [facility] Comment on above: Order Comment: Speci men Type: BLOOD SPECIMENOrdering Facility: [facility] Address: [address] [place] [id number] Performed By: #### 1 4979-9, 28786-7 ####[facility] LABORATORYCLIA [id number] [address] [place] Phosphate SerPl-mCncon 04-15 Phosphate [Mass/Vol] 4.2 mg/dL Normal 2.7-4.8 [facility] Comment on above: Order Comment: Speci men Type: BLOOD SPECIMENOrdering Facility: [facility] Address: [address] [place] [address] Performed By: #### 2 777-1, 37058-0, 12621-9 ####[facility] LABORATORYCLIA [id number] [address] [place] THERAPY NTon 04-15-2025 THERAPY NT Normal [facility] aPTT PPPon 04-15-2025 aPTT Coag (PPP) [Time] 27.8 s Normal 23.0-32.4 [facility] Comment on above: Order Comment: Speci men Type: BLOOD SPECIMENOrdering Facility: [facility] Address: [address] [place], [place] [address] Performed By: #### 1 4979-9 ####[facility] LABORATORYCLIA [id number] [address] aPTT Coag (PPP) [Time] 23.4 s Normal 23.0-32.4 [facility] Comment on above: Order Comment: Speci men Type: BLOOD SPECIMENOrdering Facility: [facility] Address: [address] [place] [address] Performed By: #### 1 4979-9, 57484-9 ####[facility] LABORATORYCLIA [id number] [place] [address] [place] ALLIED HEALTHon 04-14-2025 ALLIED HEALTH Normal [facility] Basic metabolic 2000 panelon 04-14-2025 Anion gap [Moles/Vol] 10 mmol/L Normal 8-15 [facility] Comment on above: Order Comment: Speci men Type: BLOOD SPECIMENOrdering Facility: [facility] Address: [address] [place] [address] Performed By: #### 2 777-1, 77397-8 ####[facility] LABORATORYCLIA [id number] [place] [address] [place] Calcium [Mass/Vol] 8.4 mg/dL Low 8.5-10.2 [facility] Comment on above: Order Comment: Speci men Type: BLOOD SPECIMENOrdering Facility: [facility] Address: [address] [place] [address] Performed By: #### 2 777-1, 13085-2 ####[facility] LABORATORYCLIA [id number] [place] [address] [place] Chloride [Moles/Vol] 101 mmol/L Normal 98-107 [facility] Comment on above: Order Comment: Speci men Type: BLOOD SPECIMENOrdering Facility: [facility] Address: [address] [place] [address] Performed By: #### 2 777-1, 70599-0 ####[facility] LABORATORYCLIA [id number] [address] [place] CO2 [Moles/Vol] 21 mmol/L Low 22-30 [facility] Comment on above: Order Comment: Speci men Type: BLOOD SPECIMENOrdering Facility: [facility] Address: [address] [place] [address] Performed By: #### 2 777-1, 25442-6 ####[facility] LABORATORYCLIA [id number] [place] [address] [place] Creatinine [Mass/Vol] 0.56 mg/dL Low 0.58-0.96 [facility] Comment on above: Order Comment: Speci men Type: BLOOD SPECIMENOrdering Facility: [facility] Address: [address] [place] [address] Performed By: #### 2 777-1, 03418-8 ####[facility] LABORATORYCLIA [id number] [address] [place] eGFRcr SerPlBld CKD-EPI 2021 96 mL/min/1.73m??? Normal >=60 [facility] Comment on above: Order Comment: Speci men Type: BLOOD SPECIMENOrdering Facility: [facility] Address: [address] [place] [address] Result Comment: Yessica mated Glomerular Filtration Rate (eGFR) is calculated using the 2020 CKD-EPI creatinine equation. This equation utilizes serum creatinine, sex, and age as parameters. The creatinine assay has traceable calibration to isotope dilution-mass spectrometry. Refer to KDIGO guidelines for clinical interpretation. In patients with unstable renal function, e.g. those with acute kidney injury, the eGFR may not accurately reflect actual GFR. Performed By: #### 2 777-1, 75417-8 ####[facility]ITALCLIA [id number] [place] [address] [place] Glucose [Mass/Vol] 216 mg/dL High 74-99 [facility] Comment on above: Order Comment: Franco newton Type: BLOOD SPECIMENOrdering Facility: [facility] Address: [address] [place] [address] Result Comment: The [place] [employer] (ADA) provides guidance for cutoff values for fasting glucose and random glucose. The ADA defines fasting as no caloric intake for at least 8 hours. Fasting plasma glucose results between 100 to 125 mg/dL indicate increased risk for diabetes (prediabetes).Fasting plasma glucose results greater than or equal to 126 mg/dL meet the criteria for diagnosis of diabetes. In the absence of unequivocal hyperglycemia, results should be confirmed by repeat testing. In a patient with classic symptoms of hyperglycemia or hyperglycemic crisis, random plasma glucose results greater than or equal to 200 mg/dL meet the criteria for diagnosis of diabetes.Reference: Standards of Medical Care in Diabetes 2016, [place] [employer]. Diabetes Care. 2016.39(Suppl 1). Performed By: #### 2 777-1, 87696-8 ####[facility] LABORATORYCLIA [id number] [place] [address] [place] Potassium [Moles/Vol] 4.9 mmol/L Normal 3.7-5.1 [facility] Comment on above: Order Comment: Franco newton Type: BLOOD SPECIMENOrdering Facility: [facility] Address: [address] [place] [address] Performed By: #### 2 777-1, 76764-2 ####[facility] LABORATORYCLIA [id number] [address] [place] Sodium [Moles/Vol] 132 mmol/L Low 136-144 [facility] Comment on above: Order Comment: Speci men Type: BLOOD SPECIMENOrdering Facility: [facility] Address: [address] [place] [address] Performed By: #### 2 777-1, 59008-9 ####[facility] LABORATORYCLIA [id number] [address] [place] Urea nitrogen [Mass/Vol] 21 mg/dL Normal 7-21 [facility] Comment on above: Order Comment: Speci men Type: BLOOD SPECIMENOrdering Facility: [facility] Address: [address] [place] [address] Performed By: #### 2 777-1, 41040-0 ####[facility] LABORATORYCLIA [id number] [address] STATES OF [facility] CBC panel Auto (Bld)on 04-14 Erythrocyte distribution width (RBC) [Ratio] 14.0 % Normal 11.5-15.0 [facility] Comment on above: Order Comment: Speci men Type: BLOOD SPECIMENOrdering Facility: [facility] Address: [address] [place] [address] Performed By: #### 5 8410-2 ####[facility] LABORATORYCLIA [id number] [address] [place] Hematocrit (Bld) [Volume fraction] 33.2 % Low 36.0-46.0 [facility] Comment on above: Order Comment: Speci men Type: BLOOD SPECIMENOrdering Facility: [facility] Address: [address] [place] [address] Performed By: #### 5 8410-2 ####[facility] LABORATORYCLIA [id number] [address] [place] Hemoglobin (Bld) [Mass/Vol] 11.2 g/dL Low 11.5-15.5 [facility] Comment on above: Order Comment: Speci men Type: BLOOD SPECIMENOrdering Facility: [facility] Address: [address] [place] [address] Performed By: #### 5 8410-2 ####[facility] LABORATORYCLIA [id number] [address] MCH (RBC) [Entitic mass] 28.8 pg Normal 26.0-34.0 [facility] Comment on above: Order Comment: Speci men Type: BLOOD SPECIMENOrdering Facility: [facility] Address: [address] [place] [address] Performed By: #### 5 8410-2 ####[facility] LABORATORYCLIA [id number] [address] MCHC (RBC) [Mass/Vol] 33.7 g/dL Normal 30.5-36.0 [facility] Comment on above: Order Comment: Speci men Type: BLOOD SPECIMENOrdering Facility: [facility] Address: [address] [place] [address] Performed By: #### 5 8410-2 ####[facility] LABORATORYCLIA [id number] [address] MCV (RBC) [Entitic vol] 85.3 fL Normal 80.0-100.0 [facility] Comment on above: Order Comment: Speci men Type: BLOOD SPECIMENOrdering Facility: [facility] Address: [address] [place] [address] Performed By: #### 5 8410-2 ####[facility] LABORATORYCLIA [id number] [address] Nucleated RBC (Bld) [#/Vol] 10*3/uL Normal <0.01 [facility] Comment on above: Order Comment: Speci men Type: BLOOD SPECIMENOrdering Facility: [facility] Address: [address] [place] [address] Performed By: #### 5 8410-2 ####[facility] LABORATORYCLIA [id number] [address] Platelet mean volume (Bld) [Entitic vol] 10.6 fL Normal 9.0-12.7 [facility] Comment on above: Order Comment: Speci men Type: BLOOD SPECIMENOrdering Facility: [facility] Address: [address] [place] [address] Performed By: #### 5 8410-2 ####[facility] LABORATORYCLIA [id number] [place] [address] [place] Platelets (Bld) [#/Vol] 219 10*3/uL Normal 150-400 [facility] Comment on above: Order Comment: Speci men Type: BLOOD SPECIMENOrdering Facility: [facility] Address: [address] [place] [address] Performed By: #### 5 8410-2 ####[facility] LABORATORYCLIA [id number] [place] [address] [place] RBC (Bld) [#/Vol] 3.89 10*6/uL Low 3.90-5.20 [facility] Comment on above: Order Comment: Speci men Type: BLOOD SPECIMENOrdering Facility: [facility] Address: [address] [place] [address] Performed By: #### 5 8410-2 ####[facility] LABORATORYCLIA [id number] [place] [address] [place] WBC (Bld) [#/Vol] 20.58 10*3/uL High 3.70-11.00 [facility] Comment on above: Order Comment: Speci men Type: BLOOD SPECIMENOrdering Facility: [facility] Address: [address] [place] [address] Performed By: #### 5 8410-2 ####[facility] LABORATORYCLIA [id number] [address] OF [facility] CONSULT PROGon 04-14-2025 CONSULT PROG Normal [facility] CT ABD/PEL W IVCONon 025 CT ABD/PEL W IVCON Invalid Interpretation Code [facility] CT COMPLETE LEG W IVCON LTon 04-14-2025 CT COMPLETE LEG W IVCON LT Normal [facility] Gas and Carbon monoxide pane l (BldV)on 04-14-2025 BASE DEFICIT, VENOUS -3 mmol/L Low -2-0 [facility] Comment on above: Order Comment: Speci men Type: VENOUS BLOOD SPECIMENOrdering Facility: [facility] Address: [address] [place] [address] Performed By: #### 2 4344-4 ####[facility] LABORATORYCLIA [id number] [address] [place] Body temperature 97.34 [degF] Normal [facility] Comment on above: Order Comment: Speci men Type: VENOUS BLOOD SPECIMENOrdering Facility: [facility] Address: [address] [place] [address] Performed By: #### 2 4344-4 ####[facility]ORATORYCLIA [id number] [address] [place] Calcium.ionized (BldV) [Mass/Vol] 1.17 mmol/L Normal 1.08-1.30 [facility] Comment on above: Order Comment: Speci men Type: VENOUS BLOOD SPECIMENOrdering Facility: [facility] Address: [address] [place] [address] Performed By: #### 2 4344-4 ####[facility] LABORATORYCLIA [id number] [address] [place] Calcium.ionized adjusted to pH 7.4 (BldA) [Moles/Vol] 1.11 mmol/L Normal 1.08-1.30 [facility] Comment on above: Order Comment: Speci men Type: VENOUS BLOOD SPECIMENOrdering Facility: [facility] Address: [address] [place] [address] Performed By: #### 2 4344-4 ####[facility] LABORATORYCLIA [id number] [address] [place] Carboxyhemoglobin (BldV) [Mass fraction] 2.4 % High 0.0-2.0 [facility] Comment on above: Order Comment: Speci men Type: VENOUS BLOOD SPECIMENOrdering Facility: [facility] Address: [address] [place] [address] Result Comment: Carb oxyhemoglobin Reference Range for Smokers: 2.0-8.0% Performed By: #### 2 4344-4 ####[facility]ORATORYCLIA [id number] [address] [place] Chloride [Moles/Vol] 100 mmol/L Normal 97-105 [facility] Comment on above: Order Comment: Speci men Type: VENOUS BLOOD SPECIMENOrdering Facility: [facility] Address: [address] [place] [address] Performed By: #### 2 4344-4 ####[facility]ORATORYCLIA [id number] [address] [place] CO2 (BldV) [Partial pressure] 47 mm[Hg] Normal 42-55 [facility] Comment on above: Order Comment: Speci men Type: VENOUS BLOOD SPECIMENOrdering Facility: [facility] Address: [address] [place] [address] Performed By: #### 2 4344-4 ####[facility] LABORATORYCLIA [id number] [address] CO2 adjusted to patient's actual temperature (BldV) [Partial pressure] 46 mmHg Normal 42-55 [facility] Comment on above: Order Comment: Speci men Type: VENOUS BLOOD SPECIMENOrdering Facility: [facility] Address: [address] [place] [address] Performed By: #### 2 4344-4 ####[facility]ORATORYCLIA [id number] [place] [address] [place] Glucose [Mass/Vol] 282 mg/dL High 60-105 [facility] Comment on above: Order Comment: Speci men Type: VENOUS BLOOD SPECIMENOrdering Facility: [facility] Address: [address] [place] [address] Performed By: #### 2 4344-4 ####[facility]ORATORYCLIA [id number] [place] [address] [place] HCO3 (Bld) [Moles/Vol] 23 mmol/L Low 24-28 [facility] Comment on above: Order Comment: Speci men Type: VENOUS BLOOD SPECIMENOrdering Facility: [facility] Address: [address] [place] [address] Performed By: #### 2 4344-4 ####[facility]ORATORYCLIA [id number] [address] [place] Hematocrit (Bld) [Volume fraction] 26.3 % Low 36.0-46.0 [facility] Comment on above: Order Comment: Speci men Type: VENOUS BLOOD SPECIMENOrdering Facility: [facility] Address: [address] [place] [address] Performed By: #### 2 4344-4 ####[facility] LABORATORYCLIA [id number] [address] [place] Hemoglobin (Bld) [Mass/Vol] 8.5 g/dL Low 11.5-15.5 [facility] Comment on above: Order Comment: Speci men Type: VENOUS BLOOD SPECIMENOrdering Facility: [facility] Address: [address] [place] [address] Performed By: #### 2 4344-4 ####[facility]ORATORYCLIA [id number] [address] [place] Lactate [Moles/Vol] 3.5 mmol/L High 0.5-2.2 [facility] Comment on above: Order Comment: Speci men Type: VENOUS BLOOD SPECIMENOrdering Facility: [facility] Address: [address] [place] [address] Performed By: #### 2 4344-4 ####[facility] LABORATORYCLIA [id number] [address] [place] Methemoglobin (Bld) [Mass fraction] 0.9 % Normal 0.0-1.5 [facility] Comment on above: Order Comment: Speci men Type: VENOUS BLOOD SPECIMENOrdering Facility: [facility] Address: [address] [place] [address] Performed By: #### 2 4344-4 ####[facility]ORATORYCLIA [id number] [address] O2 THERAPY NC = Nasal Cannula Normal [facility] Comment on above: Order Comment: Speci men Type: VENOUS BLOOD SPECIMENOrdering Facility: [facility] Address: [address] [place] [address] Performed By: #### 2 4344-4 ####[facility]ORATORYCLIA [id number] [address] [place] Oxygen (BldV) [Partial pressure] mm[Hg] Normal 35-45 [facility] Comment on above: Order Comment: Speci men Type: VENOUS BLOOD SPECIMENOrdering Facility: [facility] Address: [address] [place] [address] Performed By: #### 2 4344-4 ####[facility]ORATORYCLIA [id number] [address] Oxygen adjusted to patient's actual temperature (BldV) [Partial pressure] <40 Normal 35-45 [facility] Comment on above: Order Comment: Speci men Type: VENOUS BLOOD SPECIMENOrdering Facility: [facility] Address: [address] [place] [address] Performed By: #### 2 4344-4 ####[facility]ORATORYCLIA [id number] [address] [place] Oxygen saturation in Venous blood 55 % Low 60-85 [facility] Comment on above: Order Comment: Speci men Type: VENOUS BLOOD SPECIMENOrdering Facility: [facility] Address: [address] [place] [address] Performed By: #### 2 4344-4 ####[facility]ORATORYCLIA [id number] [address] [place] Oxyhemoglobin (BldV) [Mass fraction] 53 % Low 60-85 [facility] Comment on above: Order Comment: Speci men Type: VENOUS BLOOD SPECIMENOrdering Facility: [facility] Address: [address] [place] [address] Performed By: #### 2 4344-4 ####[facility] LABORATORYCLIA [id number] [address] [place] pH (BldV) 7.30 [pH] Low 7.32-7.42 [facility] Comment on above: Order Comment: Speci men Type: VENOUS BLOOD SPECIMENOrdering Facility: [facility] Address: [address] [place] [address] Performed By: #### 2 4344-4 ####[facility] LABORATORYCLIA [id number] [address] pH adjusted to patient's actual temperature (BldV) 7.31 Low 7.32-7.42 [facility] Comment on above: Order Comment: Speci men Type: VENOUS BLOOD SPECIMENOrdering Facility: [facility] Address: [address] [place] [address] Performed By: #### 2 4344-4 ####[facility] LABORATORYCLIA [id number] [address] [place] Potassium [Moles/Vol] 4.6 mmol/L Normal 3.5-5.0 [facility] Comment on above: Order Comment: Speci men Type: VENOUS BLOOD SPECIMENOrdering Facility: [facility] Address: [address] [place] [address] Performed By: #### 2 4344-4 ####[facility] LABORATORYCLIA [id number] [address] [place] Sodium [Moles/Vol] 132 mmol/L Low 136-144 [facility] Comment on above: Order Comment: Speci men Type: VENOUS BLOOD SPECIMENOrdering Facility: [facility] Address: [address] [place] [address] Performed By: #### 2 4344-4 ####[facility] LABORATORYCLIA [id number] [address] [place] Hematocrit Auto (Bld) [Volum e fraction]on 04-14-2025 Hematocrit (Bld) [Volume fraction] 21.7 % Low 36.0-46.0 [facility] Comment on above: Order Comment: Speci men Type: BLOOD SPECIMENOrdering Facility: [facility] Address: [address] [place] [address] Performed By: #### 4 544-3, 718-7 ####[facility] LABORATORYCLIA [id number] [place] [address] [place] Hematocrit (Bld) [Volume fraction] 28.4 % Low 36.0-46.0 [facility] Comment on above: Order Comment: Speci men Type: BLOOD SPECIMENOrdering Facility: [facility] Address: [address] [place] [address] Performed By: #### 7 18-7, 4544-3 ####[facility] LABORATORYCLIA [id number] [place] [address] [place] [facility] Hemoglobin (Bld) [Mass/Vol] 9.2 g/dL Low 11.5-15.5 [facility] Comment on above: Order Comment: Speci men Type: BLOOD SPECIMENOrdering Facility: [facility] Address: [address] [place] [address] Performed By: #### 7 18-7 ####[facility] LABORATORYCLIA [id number] [place] [address] [place] Hemoglobin (Bld) [Mass/Vol] 10.2 g/dL Low 11.5-15.5 [facility] Comment on above: Order Comment: Speci men Type: BLOOD SPECIMENOrdering Facility: [facility] Address: [address] [place] [address] Performed By: #### 7 18-7 ####[facility] LABORATORYCLIA [id number] [place] [address] [place] Hemoglobin (Bld) [Mass/Vol] 7.2 g/dL Low 11.5-15.5 [facility] Comment on above: Order Comment: Speci men Type: BLOOD SPECIMENOrdering Facility: [facility] Address: [address] [place] [address] Performed By: #### 4 544-3, 718-7 ####[facility] LABORATORYCLIA [id number] [place] [address] [place] Hemoglobin (Bld) [Mass/Vol] 9.4 g/dL Low 11.5-15.5 [facility] Comment on above: Order Comment: Speci men Type: BLOOD SPECIMENOrdering Facility: [facility] Address: [address] [place] [address] Performed By: #### 7 18-7, 4544-3 ####[facility] LABORATORYCLIA [id number] [place] [address] [place] Lactate (Bld) [Moles/Vol]on 04-14-2025 Lactate [Moles/Vol] 1.2 mmol/L Normal 0.5-2.2 [facility] Comment on above: Order Comment: Speci men Type: BLOOD SPECIMENOrdering Facility: [facility] Address: [address] [place] [address] Performed By: #### 3 2693-4 ####[facility] LABORATORYCLIA [id number] [place] [address] [place] Phosphate SerPl-mCncon 04-14 Phosphate [Mass/Vol] 3.2 mg/dL Normal 2.7-4.8 [facility] Comment on above: Order Comment: Speci men Type: BLOOD SPECIMENOrdering Facility: [facility] Address: [address] [place] [address] Performed By: #### 2 777-1, 24379-4 ####[facility] LABORATORYCLIA [id number] [place] [id number] [place] THERAPY NTon 04-14-2025 THERAPY NT Normal [facility] THERAPY NT Normal [facility] aPTT PPPon 04-14-2025 aPTT Coag (PPP) [Time] 76.4 s High 23.0-32.4 [facility] Comment on above: Order Comment: Speci men Type: BLOOD SPECIMENOrdering Facility: [facility] Address: [address] [place], [place] [address] Performed By: #### 1 4979-9 ####[facility] LABORATORYCLIA [id number] [place] [address] [place] ANES POSTPROC EVALon 04-13- 025 ANES POSTPROC EVAL Normal [facility] ANES PRE-OPon 04-13-2025 ANES PRE-OP Normal [facility] BRIEF OP NOTon 04-13-2025 BRIEF OP NOT Normal [facility] Basic metabolic 2000 panelon 04-13-2025 Anion gap [Moles/Vol] 6 mmol/L Low 8-15 [facility] Comment on above: Order Comment: Speci men Type: BLOOD SPECIMENOrdering Facility: [facility] Address: [address] [place] [address] Performed By: #### 2 777-1, 04135-3 ####[facility] LABORATORYCLIA [id number] [place] [address] [place] Calcium [Mass/Vol] 8.7 mg/dL Normal 8.5-10.2 [facility] Comment on above: Order Comment: Speci men Type: BLOOD SPECIMENOrdering Facility: [facility] Address: [address] [place] [address] Performed By: #### 2 777-1, 29014-4 ####[facility] LABORATORYCLIA [id number] [place] [address] [place] Chloride [Moles/Vol] 103 mmol/L Normal 98-107 [facility] Comment on above: Order Comment: Speci men Type: BLOOD SPECIMENOrdering Facility: [facility] Address: [address] [place] [address] Performed By: #### 2 777-1, 24684-2 ####[facility]ORATORYCLIA [id number] [place] [address] [place] CO2 [Moles/Vol] 25 mmol/L Normal 22-30 [facility] Comment on above: Order Comment: Speci men Type: BLOOD SPECIMENOrdering Facility: [facility] Address: [address] [place] [address] Performed By: #### 2 777-1, 73752-8 ####[facility] LABORATORYCLIA [id number] [place] [id number] [facility] Creatinine [Mass/Vol] 0.64 mg/dL Normal 0.58-0.96 [facility] Comment on above: Order Comment: Speci men Type: BLOOD SPECIMENOrdering Facility: [facility] Address: [address] [place] [address] Performed By: #### 2 777-1, 26227-8 ####[facility] LABORATORYCLIA [id number] [place] [id number] [facility] eGFRcr SerPlBld CKD-EPI 2020 93 mL/min/1.73m??? Normal >=60 [facility] Comment on above: Order Comment: Speci men Type: BLOOD SPECIMENOrdering Facility: [facility] Address: [address] [place] [address] Result Comment: Yessica mated Glomerular Filtration Rate (eGFR) is calculated using the 2020 CKD-EPI creatinine equation. This equation utilizes serum creatinine, sex, and age as parameters. The creatinine assay has traceable calibration to isotope dilution-mass spectrometry. Refer to KDIGO guidelines for clinical interpretation. In patients with unstable renal function, e.g. those with acute kidney injury, the eGFR may not accurately reflect actual GFR. Performed By: #### 2 777-1, 04913-1 ####[facility]ORATORYCLIA [id number] [place] [id number] [place] Glucose [Mass/Vol] 90 mg/dL Normal 74-99 [facility] Comment on above: Order Comment: Speci men Type: BLOOD SPECIMENOrdering Facility: [facility] Address: [address] [place] [address] Result Comment: The [place] Diabetes Association (ADA) provides guidance for cutoff values for fasting glucose and random glucose. The ADA defines fasting as no caloric intake for at least 8 hours. Fasting plasma glucose results between 100 to 125 mg/dL indicate increased risk for diabetes (prediabetes).Fasting plasma glucose results greater than or equal to 126 mg/dL meet the criteria for diagnosis of diabetes. In the absence of unequivocal hyperglycemia, results should be confirmed by repeat testing. In a patient with classic symptoms of hyperglycemia or hyperglycemic crisis, random plasma glucose results greater than or equal to 200 mg/dL meet the criteria for diagnosis of diabetes.Reference: Standards of Medical Care in Diabetes 2016, [place] Diabetes Association. Diabetes Care. 2016.39(Suppl 1). Performed By: #### 2 777-1, 57095-9 ####[facility] LABORATORYCLIA [id number] [place] [address] [place] Potassium [Moles/Vol] 4.6 mmol/L Normal 3.7-5.1 [facility] Comment on above: Order Comment: Franco newton Type: BLOOD SPECIMENOrdering Facility: [facility] Address: [address] [place] [address] Performed By: #### 2 777-1, 26222-9 ####[facility]ITALCLIA [id number] [address] STATES OF [facility] Sodium [Moles/Vol] 134 mmol/L Low 136-144 [facility] Comment on above: Order Comment: Franco newton Type: BLOOD SPECIMENOrdering Facility: [facility] Address: [address] [place] [address] Performed By: #### 2 777-1, 37994-1 ####[facility] LABORATORYCLIA [id number] [address] [place] Urea nitrogen [Mass/Vol] 22 mg/dL High 7-21 [facility] Comment on above: Order Comment: Víctori aman Type: BLOOD SPECIMENOrdering Facility: [facility] Address: [address] [place] [address] Performed By: #### 2 777-1, 34900-4 ####[facility] LABORATORYCLIA [id number] [address] [place] CASE MANAGEMon 04-13-2025 CASE MANAGEM Normal [facility] CASE MANAGEM Normal [facility] CBC panel Auto (Bld)on 04-13 Erythrocyte distribution width (RBC) [Ratio] 14.0 % Normal 11.5-15.0 [facility] Comment on above: Order Comment: Speci men Type: BLOOD SPECIMENOrdering Facility: [facility] Address: [address] [place] [address] Performed By: #### 5 8410-2 ####[facility] LABORATORYCLIA [id number] [address] Hematocrit (Bld) [Volume fraction] 41.9 % Normal 36.0-46.0 [facility] Comment on above: Order Comment: Speci men Type: BLOOD SPECIMENOrdering Facility: [facility] Address: [address] [place] [address] Performed By: #### 5 8410-2 ####[facility]ORATORYCLIA [id number] [address] [place] Hemoglobin (Bld) [Mass/Vol] 13.9 g/dL Normal 11.5-15.5 [facility] Comment on above: Order Comment: Speci men Type: BLOOD SPECIMENOrdering Facility: [facility] Address: [address] [place] [address] Performed By: #### 5 8410-2 ####[facility] LABORATORYCLIA [id number] [address] [place] MCH (RBC) [Entitic mass] 28.3 pg Normal 26.0-34.0 [facility] Comment on above: Order Comment: Speci men Type: BLOOD SPECIMENOrdering Facility: [facility] Address: [address] [place] [address] Performed By: #### 5 8410-2 ####[facility] LABORATORYCLIA [id number] [place] MCHC (RBC) [Mass/Vol] 33.2 g/dL Normal 30.5-36.0 [facility] Comment on above: Order Comment: Speci men Type: BLOOD SPECIMENOrdering Facility: [facility] Address: [address] [place] [address] Performed By: #### 5 8410-2 ####[facility] LABORATORYCLIA [id number] [address] STATES OF [facility] MCV (RBC) [Entitic vol] 85.2 fL Normal 80.0-100.0 [facility] Comment on above: Order Comment: Speci men Type: BLOOD SPECIMENOrdering Facility: [facility] Address: [address] [place] [address] Performed By: #### 5 8410-2 ####[facility] LABORATORYCLIA [id number] [address] [place] Nucleated RBC (Bld) [#/Vol] 10*3/uL Normal <0.01 [facility] Comment on above: Order Comment: Speci men Type: BLOOD SPECIMENOrdering Facility: [facility] Address: [address] [place] [address] Performed By: #### 5 8410-2 ####[facility] LABORATORYCLIA [id number] [address] Platelet mean volume (Bld) [Entitic vol] 9.6 fL Normal 9.0-12.7 [facility] Comment on above: Order Comment: Speci men Type: BLOOD SPECIMENOrdering Facility: [facility] Address: [address] [place] [address] Performed By: #### 5 8410-2 ####[facility] LABORATORYCLIA [id number] [address] Platelets (Bld) [#/Vol] 205 10*3/uL Normal 150-400 [facility] Comment on above: Order Comment: Speci men Type: BLOOD SPECIMENOrdering Facility: [facility] Address: [address] [place] [address] Performed By: #### 5 8410-2 ####[facility] LABORATORYCLIA [id number] [address] [place] RBC (Bld) [#/Vol] 4.92 10*6/uL Normal 3.90-5.20 [facility] Comment on above: Order Comment: Speci men Type: BLOOD SPECIMENOrdering Facility: [facility] Address: [address] [place] [address] Performed By: #### 5 8410-2 ####[facility] LABORATORYCLIA [id number] [address] [place] WBC (Bld) [#/Vol] 20.10 10*3/uL High 3.70-11.00 [facility] Comment on above: Order Comment: Speci men Type: BLOOD SPECIMENOrdering Facility: [facility] Address: [address] [place] [address] Performed By: #### 5 8410-2 ####[facility] LABORATORYCLIA [id number] [address] CONFIRM BLOOD TYPEon 025 ABO O Normal [facility] Comment on above: Order Comment: Speci men Type: BLOOD SPECIMENOrdering Facility: [facility] Address: [address] [place] [address] Performed By: #### C ONABO ####[facility] BLOOD BANKCLIA [id number] [address] Rh Nom (Bld) Positive Normal [facility] Comment on above: Order Comment: Speci men Type: BLOOD SPECIMENOrdering Facility: [facility] Address: [address] [place] [address] Performed By: #### C ONABO ####[facility] BLOOD BANKCLIA [id number] [address] OPERATIVE NOon 04-13-2025 OPERATIVE NO Normal [facility] PT panel Coag (PPP)on 2024 INR Coag (PPP) [Relative time] 1.1 {INR} Normal 0.9-1.3 [facility] Comment on above: Order Comment: Speci men Type: BLOOD SPECIMENOrdering Facility: [facility] Address: [address] [place] [address] Result Comment: Tequila min K Antagonist (VKA) Therapeutic Range: INR 2 to 3 (Target INR of 2.5)Note: For patients treated with VKA drugs, such as warfarin, the [employer] 2012 Guideline recommends a therapeutic INR range of 2 to 3 (target INR of 2.5). This recommendation includes high-risk patients with antiphospholipid syndrome with previous arterial or venous thromboembolism, current-generation mechanical or bioprosthetic aortic heart valve replacement.Note: Patients with mechanical aortic valve replacement and additional risk factors for thromboembolic events (atrial fibrillation, previous thromboembolism, LV dysfunction, hypercoagulable conditions) or an older generation mechanical AVR (i.e., ball in-Cage) or any mechanical MVR should have a INR therapeutic range of 2.5 to 3.5 (target INR of 3).Mt GH, et al. Chest 2012, 141:7S-47SNishimura RA, et al. [facility] 2017, 70: 252-289 Performed By: #### 3 4528-0, 86497-8 ####[facility] LABORATORYCLIA [id number] [place] [address] [place] PT Coag (PPP) [Time] 10.9 s Normal 9.7-13.0 [facility] Comment on above: Order Comment: Speci men Type: BLOOD SPECIMENOrdering Facility: [facility] Address: [address] [place] [address] Performed By: #### 3 4528-0, 75482-0 ####[facility] LABORATORYCLIA [id number] [place] [address] [place] Phosphate SerPl-mCncon 04-13 Phosphate [Mass/Vol] 3.0 mg/dL Normal 2.7-4.8 [facility] Comment on above: Order Comment: Speci men Type: BLOOD SPECIMENOrdering Facility: [facility] Address: [address] [place] [address] Performed By: #### 2 777-1, 10382-4 ####[facility] LABORATORYCLIA [id number] [place] [address] [place] XR HIP 2V AP/ LAT LTon 04-13 XR HIP 2V AP/ LAT LT Normal [facility] aPTT PPPon 10-30-2025 aPTT Coag (PPP) [Time] s High 23.0-32.4 [facility] Comment on above: Order Comment: Speci men Type: BLOOD SPECIMENOrdering Facility: [facility] Address: [address] [place] [address] Performed By: #### 1 4979-9 ####[facility] LABORATORYCLIA [id number] [address] aPTT Coag (PPP) [Time] 26.4 s Normal 23.0-32.4 [facility] Comment on above: Order Comment: Speci men Type: BLOOD SPECIMENOrdering Facility: [facility] Address: [address] [place] [address] Performed By: #### 3 4528-0, 81733-5 ####[facility] LABORATORYCLIA [id number] [address] aPTT Coag (PPP) [Time] 55.6 s High 23.0-32.4 [facility] Comment on above: Order Comment: Speci men Type: BLOOD SPECIMENOrdering Facility: [facility] Address: [address] [place] [address] Performed By: #### 1 4979-9 ####[facility] LABORATORYCLIA [id number] [address] aPTT Coag (PPP) [Time] 48.0 s High 23.0-32.4 [facility] Comment on above: Order Comment: Speci men Type: BLOOD SPECIMENOrdering Facility: [facility] Address: [address] [place] [address] Performed By: #### 1 4979-9 ####[facility] LABORATORYCLIA [id number] [address] ALLIED HEALTHon 04-12-2025 ALLIED HEALTH Normal [facility] ALLIED HEALTH Normal [facility] Basic metabolic 2000 panelon 04-12-2025 Anion gap [Moles/Vol] 7 mmol/L Low 8-15 [facility] Comment on above: Order Comment: Speci men Type: BLOOD SPECIMENOrdering Facility: [facility] Address: [address] [place] [address] Performed By: #### 2 777-1, 92998-0 ####[facility] LABORATORYCLIA [id number] [place] [address] [place] Calcium [Mass/Vol] 8.7 mg/dL Normal 8.5-10.2 [facility] Comment on above: Order Comment: Speci men Type: BLOOD SPECIMENOrdering Facility: [facility] Address: [address] [place] [address] Performed By: #### 2 777-1, 54154-2 ####[facility] LABORATORYCLIA [id number] [place] [address] [place] Chloride [Moles/Vol] 106 mmol/L Normal 98-107 [facility] Comment on above: Order Comment: Speci men Type: BLOOD SPECIMENOrdering Facility: [facility] Address: [address] [place] [address] Performed By: #### 2 777-1, 56404-2 ####[facility] LABORATORYCLIA [id number] [place] [address] [place] CO2 [Moles/Vol] 25 mmol/L Normal 22-30 [facility] Comment on above: Order Comment: Speci men Type: BLOOD SPECIMENOrdering Facility: [facility] Address: [address] [place] [address] Performed By: #### 2 777-1, 90524-2 ####[facility] LABORATORYCLIA [id number] [place] [address] [place] Creatinine [Mass/Vol] 0.58 mg/dL Normal 0.58-0.96 [facility] Comment on above: Order Comment: Speci men Type: BLOOD SPECIMENOrdering Facility: [facility] Address: [address] [place] [address] Performed By: #### 2 777-1, 58864-7 ####[facility] LABORATORYCLIA [id number] [place] [address] [place] eGFRcr SerPlBld CKD-EPI 2020 95 mL/min/1.73m??? Normal >=60 [facility] Comment on above: Order Comment: Franco newton Type: BLOOD SPECIMENOrdering Facility: [facility] Address: [address] [place] [address] Result Comment: Yessica mated Glomerular Filtration Rate (eGFR) is calculated using the 2020 CKD-EPI creatinine equation. This equation utilizes serum creatinine, sex, and age as parameters. The creatinine assay has traceable calibration to isotope dilution-mass spectrometry. Refer to KDIGO guidelines for clinical interpretation. In patients with unstable renal function, e.g. those with acute kidney injury, the eGFR may not accurately reflect actual GFR. Performed By: #### 2 777-1, 36763-5 ####[facility] LABORATORYCLIA [id number] [place] [address] [place] Glucose [Mass/Vol] 162 mg/dL High 74-99 [facility] Comment on above: Order Comment: Franco newton Type: BLOOD SPECIMENOrdering Facility: [facility] Address: [address] [place] [address] Result Comment: The [employer] (ADA) provides guidance for cutoff values for fasting glucose and random glucose. The ADA defines fasting as no caloric intake for at least 8 hours. Fasting plasma glucose results between 100 to 125 mg/dL indicate increased risk for diabetes (prediabetes).Fasting plasma glucose results greater than or equal to 126 mg/dL meet the criteria for diagnosis of diabetes. In the absence of unequivocal hyperglycemia, results should be confirmed by repeat testing. In a patient with classic symptoms of hyperglycemia or hyperglycemic crisis, random plasma glucose results greater than or equal to 200 mg/dL meet the criteria for diagnosis of diabetes.Reference: Standards of Medical Care in Diabetes 2016, [employer]. Diabetes Care. 2016.39(Suppl 1). Performed By: #### 2 777-1, 45176-4 ####[facility] LABORATORYCLIA [id number] [place] [id number] [place] Potassium [Moles/Vol] 4.1 mmol/L Normal 3.7-5.1 [facility] Comment on above: Order Comment: Speci men Type: BLOOD SPECIMENOrdering Facility: [facility] Address: [address] [place] [address] Performed By: #### 2 777-1, 76791-9 ####[facility] LABORATORYCLIA [id number] [address] STATES [facility] Sodium [Moles/Vol] 138 mmol/L Normal 136-144 [facility] Comment on above: Order Comment: Speci men Type: BLOOD SPECIMENOrdering Facility: [facility] Address: [address] [place] [address] Performed By: #### 2 777-1, 66914-1 ####[facility] LABORATORYCLIA [id number] [address] STATES OF [facility] Urea nitrogen [Mass/Vol] 18 mg/dL Normal 7-21 [facility] Comment on above: Order Comment: Speci men Type: BLOOD SPECIMENOrdering Facility: [facility] Address: [address] [place] [address] Performed By: #### 2 777-1, 64562-6 ####[facility] LABORATORYCLIA [id number] [address] [place] CASE MANAGEMon 04-12-2025 CASE MANAGEM Normal [facility] CBC panel Auto (Bld)on 04-12 Erythrocyte distribution width (RBC) [Ratio] 13.7 % Normal 11.5-15.0 [facility] Comment on above: Order Comment: Speci men Type: BLOOD SPECIMENOrdering Facility: [facility] Address: [address] [place] [address] Performed By: #### 5 8410-2 ####[facility] LABORATORYCLIA [id number] [address] Hematocrit (Bld) [Volume fraction] 39.4 % Normal 36.0-46.0 [facility] Comment on above: Order Comment: Speci men Type: BLOOD SPECIMENOrdering Facility: [facility] Address: [address] [place] [address] Performed By: #### 5 8410-2 ####[facility] LABORATORYCLIA [id number] [address] Hemoglobin (Bld) [Mass/Vol] 13.3 g/dL Normal 11.5-15.5 [facility] Comment on above: Order Comment: Speci men Type: BLOOD SPECIMENOrdering Facility: [facility] Address: [address] [place] [address] Performed By: #### 5 8410-2 ####[facility] LABORATORYCLIA [id number] [address] STATES OF [facility] MCH (RBC) [Entitic mass] 28.4 pg Normal 26.0-34.0 [facility] Comment on above: Order Comment: Speci men Type: BLOOD SPECIMENOrdering Facility: [facility] Address: [address] [place] [address] Performed By: #### 5 8410-2 ####[facility] LABORATORYCLIA [id number] [address] MCHC (RBC) [Mass/Vol] 33.8 g/dL Normal 30.5-36.0 [facility] Comment on above: Order Comment: Speci men Type: BLOOD SPECIMENOrdering Facility: [facility] Address: [address] [place] [address] Performed By: #### 5 8410-2 ####[facility] LABORATORYCLIA [id number] [address] STATES [facility] MCV (RBC) [Entitic vol] 84.0 fL Normal 80.0-100.0 [facility] Comment on above: Order Comment: Speci men Type: BLOOD SPECIMENOrdering Facility: [facility] Address: [address] [place] [address] Performed By: #### 5 8410-2 ####[facility] LABORATORYCLIA [id number] [address] [place] Nucleated RBC (Bld) [#/Vol] 10*3/uL Normal <0.01 [facility] Comment on above: Order Comment: Speci men Type: BLOOD SPECIMENOrdering Facility: [facility] Address: [address] [place] [address] Performed By: #### 5 8410-2 ####[facility] LABORATORYCLIA [id number] [place] [address] [place] Platelet mean volume (Bld) [Entitic vol] 9.8 fL Normal 9.0-12.7 [facility] Comment on above: Order Comment: Speci men Type: BLOOD SPECIMENOrdering Facility: [facility] Address: [address] [place] [address] Performed By: #### 5 8410-2 ####[facility] LABORATORYCLIA [id number] [place] [address] [place] Platelets (Bld) [#/Vol] 193 10*3/uL Normal 150-400 [facility] Comment on above: Order Comment: Speci men Type: BLOOD SPECIMENOrdering Facility: [facility] Address: [address] [place] [address] Performed By: #### 5 8410-2 ####[facility] LABORATORYCLIA [id number] [place] [address] [place] RBC (Bld) [#/Vol] 4.69 10*6/uL Normal 3.90-5.20 [facility] Comment on above: Order Comment: Speci men Type: BLOOD SPECIMENOrdering Facility: [facility] Address: [address] [place] [address] Performed By: #### 5 8410-2 ####[facility] LABORATORYCLIA [id number] [place] [address] [place] WBC (Bld) [#/Vol] 8.84 10*3/uL Normal 3.70-11.00 [facility] Comment on above: Order Comment: Speci men Type: BLOOD SPECIMENOrdering Facility: [facility] Address: [address] [place] [address] Performed By: #### 5 8410-2 ####[facility] LABORATORYCLIA [id number] [address] [place] CONSULT PROGon 04-12-2025 CONSULT PROG Normal [facility] Phosphate SerPl-mCncon 04-12 Phosphate [Mass/Vol] 3.0 mg/dL Normal 2.7-4.8 [facility] Comment on above: Order Comment: Speci men Type: BLOOD SPECIMENOrdering Facility: [facility] Address: [address] [place] [address] Performed By: #### 2 777-1, 16821-9 ####[facility] LABORATORYCLIA [id number] [address] TYPE + SCREENon 04-12-2025 ABO O Normal [facility] Comment on above: Order Comment: Speci men Type: BLOOD SPECIMENOrdering Facility: [facility] Address: [address] [place] [address] Performed By: #### T SCR ####[facility] BLOOD BANKCLIA [id number] [address] [place] Rh Nom (Bld) Positive Normal [facility] Comment on above: Order Comment: Speci men Type: BLOOD SPECIMENOrdering Facility: [facility] Address: [address] [place] [address] Performed By: #### T SCR ####[facility] BLOOD BANKCLIA [id number] [address] [place] TYPE AND SCREEN EXPIRATION 04/15/2025 23:59 Normal [facility] Comment on above: Order Comment: Speci men Type: BLOOD SPECIMENOrdering Facility: [facility] Address: [address] [place] [address] Performed By: #### T SCR ####[facility] BLOOD BANKCLIA [id number] [address] [place] aPTT PPPon 04-12-2025 aPTT Coag (PPP) [Time] 52.8 s High 23.0-32.4 [facility] Comment on above: Order Comment: Speci men Type: BLOOD SPECIMENOrdering Facility: [facility] Address: [address] [place] [address] Performed By: #### 1 4979-9 ####[facility] LABORATORYCLIA [id number] [address] aPTT Coag (PPP) [Time] 111.1 s High 23.0-32.4 [facility] Comment on above: Order Comment: Speci men Type: BLOOD SPECIMENOrdering Facility: [facility] Address: [address] [place] [address] Performed By: #### 1 4979-9 ####[facility] LABORATORYCLIA [id number] [address] STATES OF [facility] aPTT Coag (PPP) [Time] 49.0 s High 23.0-32.4 [facility] Comment on above: Order Comment: Speci men Type: BLOOD SPECIMENOrdering Facility: [facility] Address: [address] [place] [address] Performed By: #### 1 4979-9 ####[facility] LABORATORYCLIA [id number] [address] STATES OF [facility] aPTT Coag (PPP) [Time] 57.9 s High 23.0-32.4 [facility] Comment on above: Order Comment: Speci men Type: BLOOD SPECIMENOrdering Facility: [facility] Address: [address] [place] [address] Performed By: #### 1 4979-9 ####[facility] LABORATORYCLIA [id number] [address] [place] [id number] 04-11-2025 [id number] Normal [facility] Basic metabolic 2000 panelon 04-11-2025 Anion gap [Moles/Vol] 8 mmol/L Normal 8-15 [facility] Comment on above: Order Comment: Speci men Type: BLOOD SPECIMENOrdering Facility: [facility] Address: [address] [place] [address] Performed By: #### 2 4321-2, 2777-1 ####[facility] LABORATORYCLIA [id number] [place] [address] [place] Calcium [Mass/Vol] 8.4 mg/dL Low 8.5-10.2 [facility] Comment on above: Order Comment: Speci men Type: BLOOD SPECIMENOrdering Facility: [facility] Address: [address] [place] [address] Performed By: #### 2 4321-2, 277- ####[facility] LABORATORYCLIA [id number] [place] [address] [place] Chloride [Moles/Vol] 101 mmol/L Normal 98-107 [facility] Comment on above: Order Comment: Speci men Type: BLOOD SPECIMENOrdering Facility: [facility] Address: [address] [place] [address] Performed By: #### 2 4321-2, 2776- ####[facility] LABORATORYCLIA [id number] [address] [place] CO2 [Moles/Vol] 23 mmol/L Normal 22-30 [facility] Comment on above: Order Comment: Speci men Type: BLOOD SPECIMENOrdering Facility: [facility] Address: [address] [place] [address] Performed By: #### 2 4321-2, 2776-06 ####[facility] LABORATORYCLIA [id number] [place] [address] [place] Creatinine [Mass/Vol] 0.62 mg/dL Normal 0.58-0.96 [facility] Comment on above: Order Comment: Speci men Type: BLOOD SPECIMENOrdering Facility: [facility] Address: [address] [place] [address] Performed By: #### 2 4321-2, 277- ####[facility] LABORATORYCLIA [id number] [address] [place] eGFRcr SerPlBld CKD-EPI 2021 94 mL/min/1.73m??? Normal >=60 [facility] Comment on above: Order Comment: Speci men Type: BLOOD SPECIMENOrdering Facility: [facility] Address: [address] [place] [address] Result Comment: Yessica mated Glomerular Filtration Rate (eGFR) is calculated using the 2020 CKD-EPI creatinine equation. This equation utilizes serum creatinine, sex, and age as parameters. The creatinine assay has traceable calibration to isotope dilution-mass spectrometry. Refer to KDIGO guidelines for clinical interpretation. In patients with unstable renal function, e.g. those with acute kidney injury, the eGFR may not accurately reflect actual GFR. Performed By: #### 2 432-2, 2776-06 ####[facility] LABORATORYCLIA [id number] [place] [address] [place] Glucose [Mass/Vol] 189 mg/dL High 74-99 [facility] Comment on above: Order Comment: Franco newton Type: BLOOD SPECIMENOrdering Facility: [facility] Address: [address] [place] [address] Result Comment: The [place] [employer] (ADA) provides guidance for cutoff values for fasting glucose and random glucose. The ADA defines fasting as no caloric intake for at least 8 hours. Fasting plasma glucose results between 100 to 125 mg/dL indicate increased risk for diabetes (prediabetes).Fasting plasma glucose results greater than or equal to 126 mg/dL meet the criteria for diagnosis of diabetes. In the absence of unequivocal hyperglycemia, results should be confirmed by repeat testing. In a patient with classic symptoms of hyperglycemia or hyperglycemic crisis, random plasma glucose results greater than or equal to 200 mg/dL meet the criteria for diagnosis of diabetes.Reference: Standards of Medical Care in Diabetes 2016, [place] [employer]. Diabetes Care. 2016.39(Suppl 1). Performed By: #### 2 432-2, 2776-06 ####[facility] LABORATORYCLIA [id number] [place] [address] [place] Potassium [Moles/Vol] 4.0 mmol/L Normal 3.7-5.1 [facility] Comment on above: Order Comment: Franco newton Type: BLOOD SPECIMENOrdering Facility: [facility] Address: [address] [place] [address] Performed By: #### 2 432-2, 2776-06 ####[facility] LABORATORYCLIA [id number] [place] [address] [place] [facility] Sodium [Moles/Vol] 132 mmol/L Low 136-144 [facility] Comment on above: Order Comment: Speci men Type: BLOOD SPECIMENOrdering Facility: [facility] Address: [address] [place] [address] Performed By: #### 2 4321-2, 2777-1 ####[facility] LABORATORYCLIA [id number] [address] STATES [facility] Urea nitrogen [Mass/Vol] 23 mg/dL High 7-21 [facility] Comment on above: Order Comment: Speci men Type: BLOOD SPECIMENOrdering Facility: [facility] Address: [address] [place] [address] Performed By: #### 2 4321-2, 2777-1 ####[facility] LABORATORYCLIA [id number] [address] OF [facility] CASE MANAGEMon 04-11-2025 CASE MANAGEM Normal [facility] CBC panel Auto (Bld)on 04-11 Erythrocyte distribution width (RBC) [Ratio] 13.4 % Normal 11.5-15.0 [facility] Comment on above: Order Comment: Speci men Type: BLOOD SPECIMENOrdering Facility: [facility] Address: [address] [place] [address] Performed By: #### 5 8410-2 ####[facility] LABORATORYCLIA [id number] [address] STATES OF [facility] Hematocrit (Bld) [Volume fraction] 39.6 % Normal 36.0-46.0 [facility] Comment on above: Order Comment: Speci men Type: BLOOD SPECIMENOrdering Facility: [facility] Address: [address] [place] [address] Performed By: #### 5 8410-2 ####[facility] LABORATORYCLIA [id number] [address] OF [facility] Hemoglobin (Bld) [Mass/Vol] 13.2 g/dL Normal 11.5-15.5 [facility] Comment on above: Order Comment: Speci men Type: BLOOD SPECIMENOrdering Facility: [facility] Address: [address] [place] [address] Performed By: #### 5 8410-2 ####[facility] LABORATORYCLIA [id number] [address] STATES [facility] MCH (RBC) [Entitic mass] 28.1 pg Normal 26.0-34.0 [facility] Comment on above: Order Comment: Speci men Type: BLOOD SPECIMENOrdering Facility: [facility] Address: [address] [place] [address] Performed By: #### 5 8410-2 ####[facility] LABORATORYCLIA [id number] [address] MCHC (RBC) [Mass/Vol] 33.3 g/dL Normal 30.5-36.0 [facility] Comment on above: Order Comment: Speci men Type: BLOOD SPECIMENOrdering Facility: [facility] Address: [address] [place] [address] Performed By: #### 5 8410-2 ####[facility] LABORATORYCLIA [id number] [address] STATES [facility] MCV (RBC) [Entitic vol] 84.4 fL Normal 80.0-100.0 [facility] Comment on above: Order Comment: Speci men Type: BLOOD SPECIMENOrdering Facility: [facility] Address: [address] [place] [address] Performed By: #### 5 8410-2 ####[facility] LABORATORYCLIA [id number] [address] Nucleated RBC (Bld) [#/Vol] 10*3/uL Normal <0.01 [facility] Comment on above: Order Comment: Speci men Type: BLOOD SPECIMENOrdering Facility: [facility] Address: [address] [place] [address] Performed By: #### 5 8410-2 ####[facility] LABORATORYCLIA [id number] [place] [address] [place] Platelet mean volume (Bld) [Entitic vol] 9.8 fL Normal 9.0-12.7 [facility] Comment on above: Order Comment: Speci men Type: BLOOD SPECIMENOrdering Facility: [facility] Address: [address] [place] [address] Performed By: #### 5 8410-2 ####[facility] LABORATORYCLIA [id number] [place] [address] [place] Platelets (Bld) [#/Vol] 191 10*3/uL Normal 150-400 [facility] Comment on above: Order Comment: Speci men Type: BLOOD SPECIMENOrdering Facility: [facility] Address: [address] [place] [address] Performed By: #### 5 8410-2 ####[facility]ITALCLIA [id number] [place] [address] [place] RBC (Bld) [#/Vol] 4.69 10*6/uL Normal 3.90-5.20 [facility] Comment on above: Order Comment: Speci men Type: BLOOD SPECIMENOrdering Facility: [facility] Address: [address] [place] [address] Performed By: #### 5 8410-2 ####[facility] LABORATORYCLIA [id number] [place] [address] [place] WBC (Bld) [#/Vol] 8.94 10*3/uL Normal 3.70-11.00 [facility] Comment on above: Order Comment: Speci men Type: BLOOD SPECIMENOrdering Facility: [facility] Address: [address] [place] [address] Performed By: #### 5 8410-2 ####[facility] LABORATORYCLIA [id number] [address] [place] Phosphate SerPl-mCncon 04-11 Phosphate [Mass/Vol] 3.4 mg/dL Normal 2.7-4.8 [facility] Comment on above: Order Comment: Speci men Type: BLOOD SPECIMENOrdering Facility: [facility] Address: [address] [place] [address] Performed By: #### 2 4321-2, 2777-1 ####[facility] LABORATORYCLIA [id number] [address] [place] XR PELVIS 1V APon 04-11-2025 XR PELVIS 1V AP Normal [facility] aPTT PPPon 04-11-2025 aPTT Coag (PPP) [Time] 99.4 s High 23.0-32.4 [facility] Comment on above: Order Comment: Speci men Type: BLOOD SPECIMENOrdering Facility: [facility] Address: [address] [place] [address] Performed By: #### 1 4979-9 ####[facility] LABORATORYCLIA [id number] [address] STATES [facility] aPTT Coag (PPP) [Time] 51.0 s High 23.0-32.4 [facility] Comment on above: Order Comment: Speci men Type: BLOOD SPECIMENOrdering Facility: [facility] Address: [address] [place] [address] Performed By: #### 1 4979-9 ####[facility] LABORATORYCLIA [id number] [address] STATES OF [facility] aPTT Coag (PPP) [Time] 58.8 s High 23.0-32.4 [facility] Comment on above: Order Comment: Speci men Type: BLOOD SPECIMENOrdering Facility: [facility] Address: [address] [place] [address] Performed By: #### 1 4979-9 ####[facility] LABORATORYCLIA [id number] [address] aPTT Coag (PPP) [Time] 94.8 s High 23.0-32.4 [facility] Comment on above: Order Comment: Speci men Type: BLOOD SPECIMENOrdering Facility: [facility] Address: [address] [place] [address] Performed By: #### 1 4979-9 ####[facility] LABORATORYCLIA [id number] [place] [address] [place] Basic metabolic 2000 panelon 04-10-2025 Anion gap [Moles/Vol] 7 mmol/L Low 8-15 [facility] Comment on above: Order Comment: Speci men Type: BLOOD SPECIMENOrdering Facility: [facility] Address: [address] [place] [address] Performed By: #### 2 4321-2, , 2776-06 ####[facility] LABORATORYCLIA [id number] [place] [address] [place] Calcium [Mass/Vol] 8.8 mg/dL Normal 8.5-10.2 [facility] Comment on above: Order Comment: Speci men Type: BLOOD SPECIMENOrdering Facility: [facility] Address: [address] [place] [address] Performed By: #### 2 4321-2, , 2776-06 ####[facility] LABORATORYCLIA [id number] [place] [address] [place] Chloride [Moles/Vol] 103 mmol/L Normal 98-107 [facility] Comment on above: Order Comment: Speci men Type: BLOOD SPECIMENOrdering Facility: [facility] Address: [address] [place] [address] Performed By: #### 2 4321-2, , 2776-06 ####[facility] LABORATORYCLIA [id number] [place] [address] [place] CO2 [Moles/Vol] 27 mmol/L Normal 22-30 [facility] Comment on above: Order Comment: Speci men Type: BLOOD SPECIMENOrdering Facility: [facility] Address: [address] [place] [address] Performed By: #### 2 4321-2, , 2776- ####[facility] LABORATORYCLIA [id number] [place] [address] [place] Creatinine [Mass/Vol] 0.64 mg/dL Normal 0.58-0.96 [facility] Comment on above: Order Comment: Franco newton Type: BLOOD SPECIMENOrdering Facility: [facility] Address: [address] [place] [address] Performed By: #### 2 4321-2, 58799-3, 2776-06 ####[facility] LABORATORYCLIA [id number] [place] [id number] [facility] [place] eGFRcr SerPlBld CKD-EPI 2020 93 mL/min/1.73m??? Normal >=60 [facility] Comment on above: Order Comment: Franco newton Type: BLOOD SPECIMENOrdering Facility: [facility] Address: [address] [place] [address] Result Comment: Yessica mated Glomerular Filtration Rate (eGFR) is calculated using the 2020 CKD-EPI creatinine equation. This equation utilizes serum creatinine, sex, and age as parameters. The creatinine assay has traceable calibration to isotope dilution-mass spectrometry. Refer to KDIGO guidelines for clinical interpretation. In patients with unstable renal function, e.g. those with acute kidney injury, the eGFR may not accurately reflect actual GFR. Performed By: #### 2 4321-2, , 2776-06 ####[facility] LABORATORYCLIA [id number] [address] [place] Glucose [Mass/Vol] 140 mg/dL High 74-99 [facility] Comment on above: Order Comment: Franco newton Type: BLOOD SPECIMENOrdering Facility: [facility] Address: [address] [place] [address] Result Comment: The [place] Diabetes [employer] (ADA) provides guidance for cutoff values for fasting glucose and random glucose. The ADA defines fasting as no caloric intake for at least 8 hours. Fasting plasma glucose results between 100 to 125 mg/dL indicate increased risk for diabetes (prediabetes).Fasting plasma glucose results greater than or equal to 126 mg/dL meet the criteria for diagnosis of diabetes. In the absence of unequivocal hyperglycemia, results should be confirmed by repeat testing. In a patient with classic symptoms of hyperglycemia or hyperglycemic crisis, random plasma glucose results greater than or equal to 200 mg/dL meet the criteria for diagnosis of diabetes.Reference: Standards of Medical Care in Diabetes 2016, [place] Diabetes Association. Diabetes Care. 2016.39(Suppl 1). Performed By: #### 2 4321-2, , 2776-06 ####[facility] LABORATORYCLIA [id number] [place] [address] [place] Potassium [Moles/Vol] 4.0 mmol/L Normal 3.7-5.1 [facility] Comment on above: Order Comment: Speci men Type: BLOOD SPECIMENOrdering Facility: [facility] Address: [address] [place] [address] Performed By: #### 2 4321-2, , 2776-06 ####[facility] LABORATORYCLIA [id number] [address] STATES OF [facility] Sodium [Moles/Vol] 137 mmol/L Normal 136-144 [facility] Comment on above: Order Comment: Speci men Type: BLOOD SPECIMENOrdering Facility: [facility] Address: [address] [place] [address] Performed By: #### 2 4321-2, , 2776-06 ####[facility] LABORATORYCLIA [id number] [address] [place] Urea nitrogen [Mass/Vol] 16 mg/dL Normal 7-21 [facility] Comment on above: Order Comment: Víctori aman Type: BLOOD SPECIMENOrdering Facility: [facility] Address: [address] [place] [address] Performed By: #### 2 4321-2, , 2776-06 ####[facility] LABORATORYCLIA [id number] [place] [address] [place] CASE MGT INIT ASSESon 2024 CASE MGT INIT ASSES Normal [facility] CBC panel Auto (Bld)on 04-10 Erythrocyte distribution width (RBC) [Ratio] 13.6 % Normal 11.5-15.0 [facility] Comment on above: Order Comment: Speci men Type: BLOOD SPECIMENOrdering Facility: [facility] Address: [address] [place] [address] Performed By: #### 5 8410-2 ####[facility] LABORATORYCLIA [id number] [address] Hematocrit (Bld) [Volume fraction] 42.2 % Normal 36.0-46.0 [facility] Comment on above: Order Comment: Speci men Type: BLOOD SPECIMENOrdering Facility: [facility] Address: [address] [place] [address] Performed By: #### 5 8410-2 ####[facility] LABORATORYCLIA [id number] [address] [place] Hemoglobin (Bld) [Mass/Vol] 14.5 g/dL Normal 11.5-15.5 [facility] Comment on above: Order Comment: Speci men Type: BLOOD SPECIMENOrdering Facility: [facility] Address: [address] [place] [address] Performed By: #### 5 8410-2 ####[facility] LABORATORYCLIA [id number] [address] STATES [facility] MCH (RBC) [Entitic mass] 28.4 pg Normal 26.0-34.0 [facility] Comment on above: Order Comment: Speci men Type: BLOOD SPECIMENOrdering Facility: [facility] Address: [address] [place] [address] Performed By: #### 5 8410-2 ####[facility]ORATORYCLIA [id number] [address] [place] MCHC (RBC) [Mass/Vol] 34.4 g/dL Normal 30.5-36.0 [facility] Comment on above: Order Comment: Speci men Type: BLOOD SPECIMENOrdering Facility: [facility] Address: [address] [place] [address] Performed By: #### 5 8410-2 ####[facility] LABORATORYCLIA [id number] [place] [address] [place] MCV (RBC) [Entitic vol] 82.7 fL Normal 80.0-100.0 [facility] Comment on above: Order Comment: Speci men Type: BLOOD SPECIMENOrdering Facility: [facility] Address: [address] [place] [address] Performed By: #### 5 8410-2 ####[facility] LABORATORYCLIA [id number] [place] [address] [place] Nucleated RBC (Bld) [#/Vol] 10*3/uL Normal <0.01 [facility] Comment on above: Order Comment: Speci men Type: BLOOD SPECIMENOrdering Facility: [facility] Address: [address] [place] [address] Performed By: #### 5 8410-2 ####[facility] LABORATORYCLIA [id number] [address] [place] Platelet mean volume (Bld) [Entitic vol] 9.5 fL Normal 9.0-12.7 [facility] Comment on above: Order Comment: Speci men Type: BLOOD SPECIMENOrdering Facility: [facility] Address: [address] [place] [address] Performed By: #### 5 8410-2 ####[facility] LABORATORYCLIA [id number] [address] [place] Platelets (Bld) [#/Vol] 200 10*3/uL Normal 150-400 [facility] Comment on above: Order Comment: Speci men Type: BLOOD SPECIMENOrdering Facility: [facility] Address: [address] [place] [address] Performed By: #### 5 8410-2 ####[facility] LABORATORYCLIA [id number] [address] [place] RBC (Bld) [#/Vol] 5.10 10*6/uL Normal 3.90-5.20 [facility] Comment on above: Order Comment: Speci men Type: BLOOD SPECIMENOrdering Facility: [facility] Address: [address] [place] [address] Performed By: #### 5 8410-2 ####[facility] LABORATORYCLIA [id number] [address] [place] WBC (Bld) [#/Vol] 8.43 10*3/uL Normal 3.70-11.00 [facility] Comment on above: Order Comment: Speci men Type: BLOOD SPECIMENOrdering Facility: [facility] Address: [address] [place] [address] Performed By: #### 5 8410-2 ####[facility] LABORATORYCLIA [id number] [address] STATES OF [facility] Erythrocyte distribution width (RBC) [Ratio] 13.5 % Normal 11.5-15.0 [facility] Comment on above: Order Comment: Speci men Type: BLOOD SPECIMENOrdering Facility: [facility] Address: [address] [place] [address] Performed By: #### 5 8410-2 ####[facility] LABORATORYCLIA [id number] [address] Hematocrit (Bld) [Volume fraction] 38.2 % Normal 36.0-46.0 [facility] Comment on above: Order Comment: Speci men Type: BLOOD SPECIMENOrdering Facility: [facility] Address: [address] [place] [address] Performed By: #### 5 8410-2 ####[facility] LABORATORYCLIA [id number] [address] Hemoglobin (Bld) [Mass/Vol] 12.9 g/dL Normal 11.5-15.5 [facility] Comment on above: Order Comment: Speci men Type: BLOOD SPECIMENOrdering Facility: [facility] Address: [address] [place] [address] Performed By: #### 5 8410-2 ####[facility] LABORATORYCLIA [id number] [address] [place] MCH (RBC) [Entitic mass] 28.0 pg Normal 26.0-34.0 [facility] Comment on above: Order Comment: Speci men Type: BLOOD SPECIMENOrdering Facility: [facility] Address: [address] [place] [address] Performed By: #### 5 8410-2 ####[facility] LABORATORYCLIA [id number] [address] MCHC (RBC) [Mass/Vol] 33.8 g/dL Normal 30.5-36.0 [facility] Comment on above: Order Comment: Speci men Type: BLOOD SPECIMENOrdering Facility: [facility] Address: [address] [place] [address] Performed By: #### 5 8410-2 ####[facility] LABORATORYCLIA [id number] [address] MCV (RBC) [Entitic vol] 83.0 fL Normal 80.0-100.0 [facility] Comment on above: Order Comment: Speci men Type: BLOOD SPECIMENOrdering Facility: [facility] Address: [address] [place] [address] Performed By: #### 5 8410-2 ####[facility] LABORATORYCLIA [id number] [address] Nucleated RBC (Bld) [#/Vol] 10*3/uL Normal <0.01 [facility] Comment on above: Order Comment: Speci men Type: BLOOD SPECIMENOrdering Facility: [facility] Address: [address] [place] [address] Performed By: #### 5 8410-2 ####[facility] LABORATORYCLIA [id number] [address] Platelet mean volume (Bld) [Entitic vol] 10.2 fL Normal 9.0-12.7 [facility] Comment on above: Order Comment: Speci men Type: BLOOD SPECIMENOrdering Facility: [facility] Address: [address] [place] [address] Performed By: #### 5 8410-2 ####[facility] LABORATORYCLIA [id number] [address] Platelets (Bld) [#/Vol] 213 10*3/uL Normal 150-400 [facility] Comment on above: Order Comment: Speci men Type: BLOOD SPECIMENOrdering Facility: [facility] Address: [address] [place] [address] Performed By: #### 5 8410-2 ####[facility] LABORATORYCLIA [id number] [place] [address] [place] RBC (Bld) [#/Vol] 4.60 10*6/uL Normal 3.90-5.20 [facility] Comment on above: Order Comment: Speci men Type: BLOOD SPECIMENOrdering Facility: [facility] Address: [address] [place] [address] Performed By: #### 5 8410-2 ####[facility] LABORATORYCLIA [id number] [address] WBC (Bld) [#/Vol] 7.37 10*3/uL Normal 3.70-11.00 [facility] Comment on above: Order Comment: Speci men Type: BLOOD SPECIMENOrdering Facility: [facility] Address: [address] [place] [address] Performed By: #### 5 8410-2 ####[facility] LABORATORYCLIA [id number] [address] CONSULT PROGon 04-10-2025 CONSULT PROG Normal [facility] Magnesium SerPl-mCncon 04-10 Magnesium [Mass/Vol] 1.9 mg/dL Normal 1.7-2.3 [facility] Comment on above: Order Comment: Speci men Type: BLOOD SPECIMENOrdering Facility: [facility] Address: [address] [place] [address] Performed By: #### 2 4321-2, 45798-0, 2777-1 ####[facility] LABORATORYCLIA [id number] [address] [place] PT panel Coag (PPP)on 2024 INR Coag (PPP) [Relative time] 1.1 {INR} Normal 0.9-1.3 [facility] Comment on above: Order Comment: Franco newton Type: BLOOD SPECIMENOrdering Facility: [facility] Address: [address] [place], [place] [id number] Result Comment: Tequila min K Antagonist (VKA) Therapeutic Range: INR 2 to 3 (Target INR of 2.5)Note: For patients treated with VKA drugs, such as warfarin, the [employer] 2012 Guideline recommends a therapeutic INR range of 2 to 3 (target INR of 2.5). This recommendation includes high-risk patients with antiphospholipid syndrome with previous arterial or venous thromboembolism, current-generation mechanical or bioprosthetic aortic heart valve replacement.Note: Patients with mechanical aortic valve replacement and additional risk factors for thromboembolic events (atrial fibrillation, previous thromboembolism, LV dysfunction, hypercoagulable conditions) or an older generation mechanical AVR (i.e., ball in-Cage) or any mechanical MVR should have a INR therapeutic range of 2.5 to 3.5 (target INR of 3).Mt GH, et al. Chest 2012, 141:7S-47SNishimmary RA, et al. [facility] 2017, 70: 252-289 Performed By: #### 3 4528-0, 84390-0 ####[facility] LABORATORYCLIA [id number] [place] [address] [place] PT Coag (PPP) [Time] 11.5 s Normal 9.7-13.0 [facility] Comment on above: Order Comment: Franco newton Type: BLOOD SPECIMENOrdering Facility: [facility] Address: [address] [place] [id number] Performed By: #### 3 4528-0, 15457-6 ####[facility] LABORATORYCLIA [id number] [place] [address] [place] Phosphate SerPl-mCncon 04-10 Phosphate [Mass/Vol] 4.3 mg/dL Normal 2.7-4.8 [facility] Comment on above: Order Comment: Franco newton Type: BLOOD SPECIMENOrdering Facility: [facility] Address: [address] [place] [address] Performed By: #### 2 4321-2, 11892-1, 2777-1 ####[facility] LABORATORYCLIA [id number] [address] STATES OF [facility] aPTT PPPon 04-10-2025 aPTT Coag (PPP) [Time] 83.4 s High 23.0-32.4 [facility] Comment on above: Order Comment: Speci men Type: BLOOD SPECIMENOrdering Facility: [facility] Address: [address] [place] [address] Performed By: #### 1 4979-9 ####[facility] LABORATORYCLIA [id number] [address] [place] [facility] aPTT Coag (PPP) [Time] 27.1 s Normal 23.0-32.4 [facility] Comment on above: Order Comment: Speci men Type: BLOOD SPECIMENOrdering Facility: [facility] Address: [address] [place] [address] Performed By: #### 3 4528-0, 75983-0 ####[facility] LABORATORYCLIA [id number] [place] [address] [place] metabolic 2000 panelon 04-09-2025 Anion gap [Moles/Vol] 10 mmol/L Normal 8-15 [facility] Comment on above: Order Comment: Speci men Type: BLOOD SPECIMENOrdering Facility: [facility] Address: [address] [place] [address] Performed By: #### 2 777-1, 98060-5, ####[facility] LABORATORYCLIA [id number] [place] [address] [place] Calcium [Mass/Vol] 8.2 mg/dL Low 8.5-10.2 [facility] Comment on above: Order Comment: Speci men Type: BLOOD SPECIMENOrdering Facility: [facility] Address: [address] [place] [address] Performed By: #### 2 777-1, 02664-3, ####[facility]ORATORYCLIA [id number] [place] [address] [place] Chloride [Moles/Vol] 103 mmol/L Normal 98-107 [facility] Comment on above: Order Comment: Speci men Type: BLOOD SPECIMENOrdering Facility: [facility] Address: [address] [place] [address] Performed By: #### 2 777-1, 65190-5, 77008-8 ####[facility]ITALCLIA [id number] [place] [id number] [facility] [place] CO2 [Moles/Vol] 25 mmol/L Normal 22-30 [facility] Comment on above: Order Comment: Speci men Type: BLOOD SPECIMENOrdering Facility: [facility] Address: [address] [place] [address] Performed By: #### 2 777-1, 94514-7, 91925-0 ####[facility]ITALCLIA [id number] [address] STATES OF [facility] Creatinine [Mass/Vol] 0.60 mg/dL Normal 0.58-0.96 [facility] Comment on above: Order Comment: Speci men Type: BLOOD SPECIMENOrdering Facility: [facility] Address: [address] [place] [address] Performed By: #### 2 777-1, 88870-5, 04529-5 ####[facility]ITALCLIA [id number] [address] [place] eGFRcr SerPlBld CKD-EPI 2020 94 mL/min/1.73m??? Normal >=60 [facility] Comment on above: Order Comment: Speci men Type: BLOOD SPECIMENOrdering Facility: [facility] Address: [address] [place] [address] Result Comment: Yessica mated Glomerular Filtration Rate (eGFR) is calculated using the 2020 CKD-EPI creatinine equation. This equation utilizes serum creatinine, sex, and age as parameters. The creatinine assay has traceable calibration to isotope dilution-mass spectrometry. Refer to KDIGO guidelines for clinical interpretation. In patients with unstable renal function, e.g. those with acute kidney injury, the eGFR may not accurately reflect actual GFR. Performed By: #### 2 777-1, 17250-1, ####[facility] LABORATORYCLIA [id number] [place] [address] [place] Glucose [Mass/Vol] 116 mg/dL High 74-99 [facility] Comment on above: Order Comment: Franco newton Type: BLOOD SPECIMENOrdering Facility: [facility] Address: [address] [place] [address] Result Comment: The [place] Diabetes Association (ADA) provides guidance for cutoff values for fasting glucose and random glucose. The ADA defines fasting as no caloric intake for at least 8 hours. Fasting plasma glucose results between 100 to 125 mg/dL indicate increased risk for diabetes (prediabetes).Fasting plasma glucose results greater than or equal to 126 mg/dL meet the criteria for diagnosis of diabetes. In the absence of unequivocal hyperglycemia, results should be confirmed by repeat testing. In a patient with classic symptoms of hyperglycemia or hyperglycemic crisis, random plasma glucose results greater than or equal to 200 mg/dL meet the criteria for diagnosis of diabetes.Reference: Standards of Medical Care in Diabetes 2016, [employer] Diabetes Association. Diabetes Care. 2016.39(Suppl 1). Performed By: #### 2 777-1, , ####[facility] LABORATORYCLIA [id number] [place] [address] [place] Potassium [Moles/Vol] 3.7 mmol/L Normal 3.7-5.1 [facility] Comment on above: Order Comment: Franco newton Type: BLOOD SPECIMENOrdering Facility: [facility] Address: [address] [place] [address] Performed By: #### 2 777-1, 36509-1, ####[facility] LABORATORYCLIA [id number] [place] [address] [place] Sodium [Moles/Vol] 138 mmol/L Normal 136-144 [facility] Comment on above: Order Comment: Franco newton Type: BLOOD SPECIMENOrdering Facility: [facility] Address: [address] [place] [address] Performed By: #### 2 777-1, 14651-7, 10793-2 ####[facility] LABORATORYCLIA [id number] [address] STATES [facility] Urea nitrogen [Mass/Vol] 14 mg/dL Normal 7-21 [facility] Comment on above: Order Comment: Speci men Type: BLOOD SPECIMENOrdering Facility: [facility] Address: [address] [place] [address] Performed By: #### 2 777-1, 43494-0, ####[facility] LABORATORYCLIA [id number] [address] CBC panel Auto (Bld)on 04-09 Erythrocyte distribution width (RBC) [Ratio] 13.5 % Normal 11.5-15.0 [facility] Comment on above: Order Comment: Speci men Type: BLOOD SPECIMENOrdering Facility: [facility] Address: [address] [place] [address] Performed By: #### 5 8410-2 ####[facility]ORATORYCLIA [id number] [address] Hematocrit (Bld) [Volume fraction] 35.2 % Low 36.0-46.0 [facility] Comment on above: Order Comment: Speci men Type: BLOOD SPECIMENOrdering Facility: [facility] Address: [address] [place] [address] Performed By: #### 5 8410-2 ####[facility] LABORATORYCLIA [id number] [address] STATES OF [facility] Hemoglobin (Bld) [Mass/Vol] 11.7 g/dL Normal 11.5-15.5 [facility] Comment on above: Order Comment: Speci men Type: BLOOD SPECIMENOrdering Facility: [facility] Address: [address] [place] [address] Performed By: #### 5 8410-2 ####[facility] LABORATORYCLIA [id number] [address] STATES [facility] MCH (RBC) [Entitic mass] 27.8 pg Normal 26.0-34.0 [facility] Comment on above: Order Comment: Speci men Type: BLOOD SPECIMENOrdering Facility: [facility] Address: [address] [place] [address] Performed By: #### 5 8410-2 ####[facility]ORATORYCLIA [id number] [address] [place] MCHC (RBC) [Mass/Vol] 33.2 g/dL Normal 30.5-36.0 [facility] Comment on above: Order Comment: Speci men Type: BLOOD SPECIMENOrdering Facility: [facility] Address: [address] [place] [address] Performed By: #### 5 8410-2 ####[facility] LABORATORYCLIA [id number] [address] STATES [facility] MCV (RBC) [Entitic vol] 83.6 fL Normal 80.0-100.0 [facility] Comment on above: Order Comment: Speci men Type: BLOOD SPECIMENOrdering Facility: [facility] Address: [address] [place] [address] Performed By: #### 5 8410-2 ####[facility] LABORATORYCLIA [id number] [address] Nucleated RBC (Bld) [#/Vol] 10*3/uL Normal <0.01 [facility] Comment on above: Order Comment: Speci men Type: BLOOD SPECIMENOrdering Facility: [facility] Address: [address] [place] [address] Performed By: #### 5 8410-2 ####[facility] LABORATORYCLIA [id number] [address] Platelet mean volume (Bld) [Entitic vol] 10.1 fL Normal 9.0-12.7 [facility] Comment on above: Order Comment: Speci men Type: BLOOD SPECIMENOrdering Facility: [facility] Address: [address] [place] [address] Performed By: #### 5 8410-2 ####[facility] LABORATORYCLIA [id number] [address] [place] Platelets (Bld) [#/Vol] 167 10*3/uL Normal 150-400 [facility] Comment on above: Order Comment: Speci men Type: BLOOD SPECIMENOrdering Facility: [facility] Address: [address] [place] [address] Performed By: #### 5 8410-2 ####[facility]ORATORYCLIA [id number] [address] [place] RBC (Bld) [#/Vol] 4.21 10*6/uL Normal 3.90-5.20 [facility] Comment on above: Order Comment: Speci men Type: BLOOD SPECIMENOrdering Facility: [facility] Address: [address] [place] [address] Performed By: #### 5 8410-2 ####[facility]ORATORYCLIA [id number] [address] WBC (Bld) [#/Vol] 6.44 10*3/uL Normal 3.70-11.00 [facility] Comment on above: Order Comment: Speci men Type: BLOOD SPECIMENOrdering Facility: [facility] Address: [address] [place] [address] Performed By: #### 5 8410-2 ####[facility] LABORATORYCLIA [id number] [address] [place] CONSULTon 04-09-2025 CONSULT Normal [facility] Calcium.ionized [Moles/Vol]o n 04-09-2025 Calcium.ionized (BldV) [Mass/Vol] 1.11 mmol/L Normal 1.08-1.30 [facility] Comment on above: Order Comment: Speci men Type: BLOOD SPECIMENOrdering Facility: [facility] Address: [address] [place] [address] Performed By: #### 1 995-0 ####[facility]ORATORYCLIA [id number] [address] Calcium.ionized adjusted to pH 7.4 (Bld) [Moles/Vol] 1.12 mmol/L Normal 1.08-1.30 [facility] Comment on above: Order Comment: Speci men Type: BLOOD SPECIMENOrdering Facility: [facility] Address: [address] [place] [address] Performed By: #### 1 995-0 ####[facility]ORATORYCLIA [id number] [address] Magnesium [facility] 04-09 Magnesium [Mass/Vol] 1.6 mg/dL Low 1.7-2.3 [facility] Comment on above: Order Comment: Speci men Type: BLOOD SPECIMENOrdering Facility: [facility] Address: [address] [place] [address] Performed By: #### 2 777-1, 53085-2, ####[facility] LABORATORYCLIA [id number] [address] [place] NURSING PROGon 04-09-2025 NURSING PROG Normal [facility] Phosphate SerPl-ncon 04-09 Phosphate [Mass/Vol] 3.6 mg/dL Normal 2.7-4.8 [facility] Comment on above: Order Comment: Speci men Type: BLOOD SPECIMENOrdering Facility: [facility] Address: [address] [place] [address] Performed By: #### 2 777-1, 37169-7, ####[facility] LABORATORYCLIA [id number] [address] [place] XR FEMUR 2V AP/LAT LTon 03-16 XR FEMUR 2V AP/LAT LT Normal [facility] XR PELVIS 1V APon 04-09-2025 XR PELVIS 1V AP Normal [facility] aPTT PPPon 04-09-2025 aPTT Coag (PPP) [Time] 80.6 s High 23.0-32.4 [facility] Comment on above: Order Comment: Speci men Type: BLOOD SPECIMENOrdering Facility: [facility] Address: [address] [place] [address] Performed By: #### 1 4979-9 ####[facility]ORATORYCLIA [id number] [address] [place] aPTT Coag (PPP) [Time] 111.6 s High 23.0-32.4 [facility] Comment on above: Order Comment: Speci men Type: BLOOD SPECIMENOrdering Facility: [facility] Address: [address] [place] [address] Performed By: #### 1 4979-9 ####[facility]ORATORYCLIA [id number] [place] [address] [place] Basic metabolic 2000 panelon 04-08-2025 Anion gap [Moles/Vol] 10 mmol/L Normal 8-15 [facility] Comment on above: Order Comment: Speci men Type: BLOOD SPECIMENOrdering Facility: [facility] Address: [address] [place] [address] Performed By: #### 2 4321-2, 34646-4, 2777-1, LIPNF, 94722-9 ####[facility]ITALCLIA [id number] [place] [address] [place] Calcium [Mass/Vol] 9.3 mg/dL Normal 8.5-10.2 [facility] Comment on above: Order Comment: Speci men Type: BLOOD SPECIMENOrdering Facility: [facility] Address: [address] [place] [address] Performed By: #### 2 4321-2, 90638-4, 2777-1, LIPNF, 08920-5 ####[facility]ORATORYCLIA [id number] [place] [address] [place] Chloride [Moles/Vol] 101 mmol/L Normal 98-107 [facility] Comment on above: Order Comment: Speci men Type: BLOOD SPECIMENOrdering Facility: [facility] Address: [address] [place] [address] Performed By: #### 2 4321-2, 56163-9, 2777-1, LIPNF, 40533-9 ####[facility]ITALCLIA [id number] [place] [address] [place] CO2 [Moles/Vol] 28 mmol/L Normal 22-30 [facility] Comment on above: Order Comment: Speci men Type: BLOOD SPECIMENOrdering Facility: [facility] Address: [address] [place] [address] Performed By: #### 2 4321-2, 43081-1, 7-1, LIPNF, 08230-6 ####[facility] [id number] [address] [place] Creatinine [Mass/Vol] 0.53 mg/dL Low 0.58-0.96 [facility] Comment on above: Order Comment: Speci men Type: BLOOD SPECIMENOrdering Facility: [facility] Address: [address] [place] [address] Performed By: #### 2 4321-2, 67627-2, 7-1, LIPNF, 20366-7 ####[facility]ALTHIA [id number] [address] [place] eGFRcr SerPlBld CKD-EPI 2020 97 mL/min/1.73m??? Normal >=60 [facility] Comment on above: Order Comment: Speci men Type: BLOOD SPECIMENOrdering Facility: [facility] Address: [address] [place] [address] Result Comment: Yessica mated Glomerular Filtration Rate (eGFR) is calculated using the 2020 CKD-EPI creatinine equation. This equation utilizes serum creatinine, sex, and age as parameters. The creatinine assay has traceable calibration to isotope dilution-mass spectrometry. Refer to KDIGO guidelines for clinical interpretation. In patients with unstable renal function, e.g. those with acute kidney injury, the eGFR may not accurately reflect actual GFR. Performed By: #### 2 4321-2, 74273-8, 2777-1, LIPNF, 51340-0 ####[facility] LABORATORYCLIA [id number] [place] [address] [place] Glucose [Mass/Vol] 177 mg/dL High 74-99 [facility] Comment on above: Order Comment: Speci men Type: BLOOD SPECIMENOrdering Facility: [facility] Address: [address] [place] [address] Result Comment: The [place] Diabetes Association (ADA) provides guidance for cutoff values for fasting glucose and random glucose. The ADA defines fasting as no caloric intake for at least 8 hours. Fasting plasma glucose results between 100 to 125 mg/dL indicate increased risk for diabetes (prediabetes).Fasting plasma glucose results greater than or equal to 126 mg/dL meet the criteria for diagnosis of diabetes. In the absence of unequivocal hyperglycemia, results should be confirmed by repeat testing. In a patient with classic symptoms of hyperglycemia or hyperglycemic crisis, random plasma glucose results greater than or equal to 200 mg/dL meet the criteria for diagnosis of diabetes.Reference: Standards of Medical Care in Diabetes 2016, [place] Diabetes Association. Diabetes Care. 2016.39(Suppl 1). Performed By: #### 2 4321-2, 25101-6, 2777-1, LIPNF, 66522-3 ####[facility]ALTHIA [id number] [place] [address] [place] Potassium [Moles/Vol] 3.7 mmol/L Normal 3.7-5.1 [facility] Comment on above: Order Comment: Speci men Type: BLOOD SPECIMENOrdering Facility: [facility] Address: [address] [place] [address] Performed By: #### 2 4321-2, , 2777-1, LIPNF, 77768-8 ####[facility]ORATORYCLIA [id number] [place] [address] [place] Sodium [Moles/Vol] 139 mmol/L Normal 136-144 [facility] Comment on above: Order Comment: Speci men Type: BLOOD SPECIMENOrdering Facility: [facility] Address: [address] [place] [address] Performed By: #### 2 4321-2, , 2777-1, LIPNF, 96900-6 ####[facility]ATORYCLIA [id number] [place] [address] [place] Urea nitrogen [Mass/Vol] 12 mg/dL Normal 7-21 [facility] Comment on above: Order Comment: Speci men Type: BLOOD SPECIMENOrdering Facility: [facility] Address: [address] [place] [address] Performed By: #### 2 4321-2, 30590-2, 2777-1, LIPNF, 46590-8 ####[facility] LABORATORYCLIA [id number] [address] [place] CBC panel Auto (Bld)on 04-08 Erythrocyte distribution width (RBC) [Ratio] 13.4 % Normal 11.5-15.0 [facility] Comment on above: Order Comment: Speci men Type: BLOOD SPECIMENOrdering Facility: [facility] Address: [address] [place] [address] Performed By: #### 5 5454-3 ####[facility] LABCLIA [id number] [address] [place]#### 11802-3 ####[facility] LABORATORYCLIA [id number] [address] STATES OF [facility] Hematocrit (Bld) [Volume fraction] 43.7 % Normal 36.0-46.0 [facility] Comment on above: Order Comment: Speci men Type: BLOOD SPECIMENOrdering Facility: [facility] Address: [address] [place] [address] Performed By: #### 5 5454-3 ####[facility] LABCLIA [id number] [place] [address] [place]#### 80736-8 ####[facility] LABORATORYCLIA [id number] [address] [place] Hemoglobin (Bld) [Mass/Vol] 14.7 g/dL Normal 11.5-15.5 [facility] Comment on above: Order Comment: Speci men Type: BLOOD SPECIMENOrdering Facility: [facility] Address: [address] [place] [address] Performed By: #### 5 5454-3 ####[facility] LABCLIA [id number] [address]#### 44929-0 ####[facility]ORATORYCLIA [id number] [address] MCH (RBC) [Entitic mass] 28.0 pg Normal 26.0-34.0 [facility] Comment on above: Order Comment: Speci men Type: BLOOD SPECIMENOrdering Facility: [facility] Address: [address] [place] [address] Performed By: #### 5 5454-3 ####[facility] LABCLIA [id number] [address] [place]#### 19250-4 ####[facility] LABORATORYCLIA [id number] [address] MCHC (RBC) [Mass/Vol] 33.6 g/dL Normal 30.5-36.0 [facility] Comment on above: Order Comment: Speci men Type: BLOOD SPECIMENOrdering Facility: [facility] Address: [address] [place] [address] Performed By: #### 5 5454-3 ####[facility] LABCLIA [id number] [address]#### 54295-8 ####[facility] LABORATORYCLIA [id number] [address] MCV (RBC) [Entitic vol] 83.2 fL Normal 80.0-100.0 [facility] Comment on above: Order Comment: Speci men Type: BLOOD SPECIMENOrdering Facility: [facility] Address: [address] [place] [address] Performed By: #### 5 5454-3 ####[facility] LABCLIA [id number] [address] [place]#### 61251-9 ####[facility]ORATORYCLIA [id number] [address] Nucleated RBC (Bld) [#/Vol] 10*3/uL Normal <0.01 [facility] Comment on above: Order Comment: Speci men Type: BLOOD SPECIMENOrdering Facility: [facility] Address: [address] [place] [address] Performed By: #### 5 5454-3 ####[facility] LABCLIA [id number] [address]#### 86377-7 ####[facility]ORATORYCLIA [id number] [address] Platelet mean volume (Bld) [Entitic vol] 10.3 fL Normal 9.0-12.7 [facility] Comment on above: Order Comment: Speci men Type: BLOOD SPECIMENOrdering Facility: [facility] Address: [address] [place] [address] Performed By: #### 5 5454-3 ####[facility] LABCLIA [id number] [address]#### 67317-0 ####[facility]ORATORYCLIA [id number] [address] Platelets (Bld) [#/Vol] 200 10*3/uL Normal 150-400 [facility] Comment on above: Order Comment: Speci men Type: BLOOD SPECIMENOrdering Facility: [facility] Address: [address] [place] [address] Performed By: #### 5 5454-3 ####[facility] LABCLIA [id number] [address] [place]#### 22366-3 ####[facility]ORATORYCLIA [id number] [address] [place] RBC (Bld) [#/Vol] 5.25 10*6/uL High 3.90-5.20 [facility] Comment on above: Order Comment: Speci men Type: BLOOD SPECIMENOrdering Facility: [facility] Address: [address] [place] [address] Performed By: #### 5 5454-3 ####[facility] LABCLIA [id number] [address] [place]#### 81587-1 ####[facility] LABORATORYCLIA [id number] [address] [place] WBC (Bld) [#/Vol] 8.02 10*3/uL Normal 3.70-11.00 [facility] Comment on above: Order Comment: Speci men Type: BLOOD SPECIMENOrdering Facility: [facility] Address: [address] [place] [address] Performed By: #### 5 5454-3 ####[facility] LABCLIA [id number] [address] [place]#### 23500-9 ####[facility]ORATORYCLIA [id number] [address] [place] CONSULTon 04-08-2025 CONSULT Normal [facility] CONSULT Normal [facility] CONSULT Normal [facility] Calcium.ionized [Moles/Vol]o n 04-08-2025 Calcium.ionized (BldV) [Mass/Vol] 1.19 mmol/L Normal 1.08-1.30 [facility] Comment on above: Order Comment: Speci men Type: BLOOD SPECIMENOrdering Facility: [facility] Address: [address] [place] [address] Performed By: #### 1 995-0 ####[facility]ORATORYCLIA [id number] [address] Calcium.ionized adjusted to pH 7.4 (Bld) [Moles/Vol] 1.20 mmol/L Normal 1.08-1.30 [facility] Comment on above: Order Comment: Speci men Type: BLOOD SPECIMENOrdering Facility: [facility] Address: [address] [place] [address] Performed By: #### 1 995-0 ####[facility]ORATORYCLIA [id number] [address] [place] ECG COMPLETEon 04-08-2025 ECG COMPLETE Normal [facility] HbA1c (Bld)on 04-08-2025 Average glucose Estimated from glycated hemoglobin (Bld) [Mass/Vol] 266 mg/dL Normal [facility] Comment on above: Order Comment: Víctorklaudia newton Type: BLOOD SPECIMENOrdering Facility: [facility] Address: [address] [place] [address] Result Comment: eAG: (Estimated average glucose) is a calculated value from HgbA1c and is sales representative of the average blood glucose level in the last 2-3 month period. Performed By: #### 5 5454-3 ####[facility] LABCLIA [id number] [address] [place] [facility]#### [id number] ####[place] [facility] LABORATORYCLIA [id number] [address] STATES [facility] HbA1c (Bld) [Mass fraction] 10.9 % High 4.3-5.6 [facility] Comment on above: Order Comment: Franco newton Type: BLOOD SPECIMENOrdering Facility: [facility] Address: [address] [place] [address] Result Comment: Amer ican Diabetes Association guidelines indicate that patients with HgbA1c in the range 5.7-6.4% are at increased risk for development of diabetes, and intervention by lifestyle modification may be beneficial. HgbA1c greater or equal to 6.5% is considered diagnostic of diabetes. Performed By: #### 5 5454-3 ####[facility] LABCLIA [id number] [address] [place]#### 90595-7 ####[facility] LABORATORYCLIA [id number] [place] [id number] [place] [facility] Hepatic function 2000 panelo n 04-08-2025 Albumin [Mass/Vol] 3.5 g/dL Low 3.9-4.9 [facility] Comment on above: Order Comment: Speci men Type: BLOOD SPECIMENOrdering Facility: [facility] Address: [address] [place] [address] Performed By: #### 2 4321-2, 66583-7, 2777-1, LIPNF, 26529-1 ####[facility] LABORATORYCLIA [id number] [place] [address] [place] [facility] ALP [Catalytic activity/Vol] 73 U/L Normal 34-123 [facility] Comment on above: Order Comment: Speci men Type: BLOOD SPECIMENOrdering Facility: [facility] Address: [address] [place] [address] Performed By: #### 2 4321-2, 27804-7, 2777-1, LIPNF, 29018-5 ####[facility] LABORATORYCLIA [id number] [place] [address] [place] ALT With P-5'-P [Catalytic activity/Vol] 26 U/L Normal 7-38 [facility] Comment on above: Order Comment: Speci men Type: BLOOD SPECIMENOrdering Facility: [facility] Address: [address] [place] [address] Performed By: #### 2 4321-2, 28292-5, 2777-1, LIPNF, 04878-9 ####[facility] LABORATORYCLIA [id number] [place] [address] [place] AST With P-5'-P [Catalytic activity/Vol] 33 U/L Normal 13-35 [facility] Comment on above: Order Comment: Speci men Type: BLOOD SPECIMENOrdering Facility: [facility] Address: [address] [place] [address] Performed By: #### 2 4321-2, 21407-4, 2777-1, LIPNF, 41146-8 ####[facility] LABORATORYCLIA [id number] [place] [id number] [place] Bilirubin [Mass/Vol] 0.5 mg/dL Normal 0.2-1.3 [facility] Comment on above: Order Comment: Speci men Type: BLOOD SPECIMENOrdering Facility: [facility] Address: [address] [place] [address] Performed By: #### 2 4321-2, 20590-1, 2777-1, LIPNF, 34372-0 ####[facility] LABORATORYCLIA [id number] [address] OF [facility] Bilirubin.conjugated [Mass/Vol] 0.2 mg/dL Normal <0.3 [facility] Comment on above: Order Comment: Speci men Type: BLOOD SPECIMENOrdering Facility: [facility] Address: [address] [place] [address] Performed By: #### 2 4321-2, 61516-7, 7-1, LIPNF, 63023-0 ####[facility] LABORATORYCLIA [id number] [place] [address] [place] Protein [Mass/Vol] 6.4 g/dL Normal 6.3-8.0 [facility] Comment on above: Order Comment: Speci men Type: BLOOD SPECIMENOrdering Facility: [facility] Address: [address] [place] [address] Performed By: #### 2 4321-2, 94947-0, 7-1, LIPNF, 66605-4 ####[facility] LABORATORYCLIA [id number] [place] [address] [place] [facility] LIPID PANEL, NONFASTINGon Cholesterol [Mass/Vol] 103 mg/dL Normal <200 [facility] Comment on above: Order Comment: Speci men Type: BLOOD SPECIMENOrdering Facility: [facility] Address: [address] [place] [address] Result Comment: <200 mg/dL, Desirable 200-239 mg/dL, Borderline high>239 mg/dL, High Performed By: #### 2 4321-2, 24932-6, 2777-1, LIPNF, 81573-2 ####[facility] LABORATORYCLIA [id number] [address] HDL CHOLESTEROL, NF 50 mg/dL Normal >39 [facility] Comment on above: Order Comment: Speci men Type: BLOOD SPECIMENOrdering Facility: [facility] Address: [address] [place] [address] Result Comment: 40-5 9 mg/dL, Acceptable>59 mg/dL, High: Negative risk factor for coronary heart disease<40 mg/dL, Low: Positive risk factor for coronary heart disease Performed By: #### 2 4321-2, 73197-3, 7-1, LIPNF, 93405-2 ####[facility] LABORATORYCLIA [id number] [address] LDL CHOLESTEROL CALCULATED, NF 33 mg/dL Normal <100 [facility] Comment on above: Order Comment: Franco aman Type: BLOOD SPECIMENOrdering Facility: [facility] Address: [address] [place] [address] Result Comment: <100 mg/dL, Optimal 100-129 mg/dL, Near optimal/above optimal 130-159 mg/dL, Borderline high 160-189 mg/dL, High>189 mg/dL, Very highSecondary prevention optimal LDL Cholesterol levels are recommended to be <70 mg/dLLDL cholesterol is calculated using the Dumont-NIH equation. Performed By: #### 2 4321-2, 46603-6, 7-1, LIPNF, 73070-1 ####[facility] LABORATORYCLIA [id number] [address] LDL/HDL RATIO, NF 0.66 mg/dL Normal <2.54 [facility] Comment on above: Order Comment: Speci men Type: BLOOD SPECIMENOrdering Facility: [facility] Address: [address] [place] [address] Result Comment: Serena nair:1. National Cholesterol Education Program ATP III Guideline At-A-Glance Quick Desk Reference: National Heart, Lung, and Blood Barnard. National Institutes of Health. 2001: NIH Publication No. 01-3305.2. An International Atherosclerosis Society position paper: global recommendations for the management of dyslipidemia: executive summary, Atherosclerosis. 2014: 232(2):410-413. Performed By: #### 2 4321-2, 51786-8, 7-1, LIPNF, 90106-3 ####[facility] LABORATORYCLIA [id number] [address] [place] NON HDL CHOL, NF 53 mg/dL Normal <130 [facility] Comment on above: Order Comment: Speci men Type: BLOOD SPECIMENOrdering Facility: [facility] Address: [address] [place] [address] Result Comment: <130 mg/dL, Optimal 130-159 mg/dL, Near optimal/above optimal 160-189 mg/dL, Borderline high 190-219 mg/dL, High>219 mg/dL, Very highSecondary prevention optimal non HDL Cholesterol levels are recommended to be <100 mg/dL Performed By: #### 2 4321-2, , 2776-1, LIPNF, 31200-5 ####[facility] LABORATORYCLIA [id number] [address] STATES OF [facility] T CHOL/HDL RATIO NF 2.06 mg/dL Normal <5.10 [facility] Comment on above: Order Comment: Franco newton Type: BLOOD SPECIMENOrdering Facility: [facility] Address: [address] [place] [address] Performed By: #### 2 1-2, , 2776-1, LIPNF, 53227-1 ####[facility] LABORATORYCLIA [id number] [address] OF [place] TRIGLYCERIDES, NF 110 mg/dL Normal <150 [facility] Comment on above: Order Comment: Víctori men Type: BLOOD SPECIMENOrdering Facility: [facility] Address: [address] [place] [address] Result Comment: <150 mg/dL, Normal 150-199 mg/dL, Borderline high 200-499 mg/dL, High>499 mg/dL, Very high Performed By: #### 2 4321-2, 84753-0, 7-1, LIPNF, 85009-2 ####[facility] LABORATORYCLIA [id number] [place] [address] [place] VLDL CHOLESTEROL, NF 15 mg/dL Normal <30 [facility] Comment on above: Order Comment: Franco newton Type: BLOOD SPECIMENOrdering Facility: [facility] Address: [address] [place] [address] Performed By: #### 2 4321-2, 69178-3, 2777-1, LIP, 81656-0 ####[facility] LABORATORYCLIA [id number] [place] [address] [place] Magnesium SerPl-mCncon 04-08 Magnesium [Mass/Vol] 1.7 mg/dL Normal 1.7-2.3 [facility] Comment on above: Order Comment: Franco newton Type: BLOOD SPECIMENOrdering Facility: [facility] Address: [address] [place] [address] Performed By: #### 2 4321-2, 19587-5, 2777-1, [facility], 84021-2 ####[facility] LABORATORYCLIA [id number] [place] [id number] [place] PT panel Coag (PPP)on 2024 INR Coag (PPP) [Relative time] 1.1 {INR} Normal 0.9-1.3 [facility] Comment on above: Order Comment: Franco newton Type: BLOOD SPECIMENOrdering Facility: [facility] Address: [address] [place] [address] Result Comment: Tequila min K Antagonist (VKA) Therapeutic Range: INR 2 to 3 (Target INR of 2.5)Note: For patients treated with VKA drugs, such as warfarin, the [place] [employer] 2012 Guideline recommends a therapeutic INR range of 2 to 3 (target INR of 2.5). This recommendation includes high-risk patients with antiphospholipid syndrome with previous arterial or venous thromboembolism, current-generation mechanical or bioprosthetic aortic heart valve replacement.Note: Patients with mechanical aortic valve replacement and additional risk factors for thromboembolic events (atrial fibrillation, previous thromboembolism, LV dysfunction, hypercoagulable conditions) or an older generation mechanical AVR (i.e., ball in-Cage) or any mechanical MVR should have a INR therapeutic range of 2.5 to 3.5 (target INR of 3).Mt GH, et al. Chest 2012, 141:7S-47SNishimura RA, et al. [facility] 2017, 70: 252-289 Performed By: #### 3 4528-0, 39527-5 ####[facility] LABORATORYCLIA [id number] [place] [address] [place] PT Coag (PPP) [Time] 11.5 s Normal 9.7-13.0 [facility] Comment on above: Order Comment: Speci men Type: BLOOD SPECIMENOrdering Facility: [facility] Address: [address] [place] [address] Performed By: #### 3 4528-0, 77134-5 ####[facility] [id number] [address] STATES OF [facility] Phosphate SerPl-mCncon 04-08 Phosphate [Mass/Vol] 3.4 mg/dL Normal 2.7-4.8 [facility] Comment on above: Order Comment: Speci aman Type: BLOOD SPECIMENOrdering Facility: [facility] Address: [address] [place] [address] Performed By: #### 2 4321-2, 66010-6, 2777-1, LIPNF, 79047-2 ####[facility]ITALCLIA [id number] [place] [address] [place] STAPHYLOCOCCUS AUREUS AND MR SA SCREEN, PCR, NASALon 04-08-2025 S. aureus and MRSA panel FINA+probe (Nose) Not detected Normal Not Detected [facility] Comment on above: Order Comment: Speci aman Type: SWABOrdering Facility: [facility] Address: [address] [place] [address] Performed By: #### S APCR ####[facility] LABORATORYCLIA [id number] [place] [id number] [place] aPTT PPPon 04-08-2025 aPTT Coag (PPP) [Time] s High 23.0-32.4 [facility] Comment on above: Order Comment: Speci men Type: BLOOD SPECIMENOrdering Facility: [facility] Address: [address] [place] [id number] Performed By: #### 1 4979-9 ####[facility] LABORATORYCLIA [id number] [place] [address] [place] aPTT Coag (PPP) [Time] 38.9 s High 23.0-32.4 [facility] Comment on above: Order Comment: Speci men Type: BLOOD SPECIMENOrdering Facility: [facility] Address: [place] [address] Performed By: #### 3 4528-0, 78664-5 ####[facility] LABORATORYCLIA [id number] [place] [id number] [facility] HbA1c (Bld) [Mass fraction]o n 05-16-2024 Interpretation and review of laboratory results Abnormal [facility] POC Hemoglobin A1Con 024 HbA1c (Bld) [Mass fraction] 6.4 % Abnormal 4.0 - 6.0 % [facility] BASIC METABOLIC PANELon Anion gap [Moles/Vol] 17 mmol/L Normal 10-20 [facility] Comment on above: Order Comment: [facility] has implemented the eGFR calculation approach that does not have a coefficient for race that conforms to the NKF-ASN Task Force Recommendations. Performed By: #### 4 6124 #### LAB [address] [place] [address] Adonay Hanks M.D. [id number] Calcium [Mass/Vol] 9.7 mg/dL Normal 8.4-10.2 [facility] Comment on above: Order Comment: [facility] has implemented the eGFR calculation approach that does not have a coefficient for race that conforms to the NKF-ASN Task Force Recommendations. Performed By: #### 4 6124 #### LAB [address] [place] [address] Adonay Hanks M.D. [id number] Chloride [Moles/Vol] 102 mmol/L Normal 98-108 [facility] Comment on above: Order Comment: [facility] has implemented the eGFR calculation approach that does not have a coefficient for race that conforms to the NKF-ASN Task Force Recommendations. Performed By: #### 4 6124 #### LAB [address] [place], [place] [address] Adonay Hanks M.D. [id number] Creatinine [Mass/Vol] 0.63 mg/dL Normal 0.60-1.10 [facility] Comment on above: Order Comment: [facility] has implemented the eGFR calculation approach that does not have a coefficient for race that conforms to the NKF-ASN Task Force Recommendations. Performed By: #### 4 6124 #### LAB [address] [place] [address] Adonay Hanks M.D. [id number] EGFR 94 mL/min/1.73 m2 Normal >=60 [facility] Comment on above: Order Comment: [facility] has implemented the eGFR calculation approach that does not have a coefficient for race that conforms to the NKF-ASN Task Force Recommendations. Result Comment: Yessica mated GFR was calculated using the 2020 CKD-EPI creatinine equation. Performed By: #### 4 6124 #### LAB [address] [place] [id number] Adonay Hanks M.D. [id number] Glucose [Mass/Vol] 159 mg/dL High 65-99 [facility] Comment on above: Order Comment: [facility] has implemented the eGFR calculation approach that does not have a coefficient for race that conforms to the NKF-ASN Task Force Recommendations. Performed By: #### 4 6124 #### LAB [address] [place] [id number] Adonay Hanks M.D. [id number] HCO3 (Bld) [Moles/Vol] 24 mmol/L Normal 21-32 [facility] Comment on above: Order Comment: [facility] has implemented the eGFR calculation approach that does not have a coefficient for race that conforms to the NKF-ASN Task Force Recommendations. Performed By: #### 4 6124 #### LAB [address] [place] [address] Adonay Hanks M.D. [id number] Potassium [Moles/Vol] 4.1 mmol/L Normal 3.5-5.1 [facility] Comment on above: Order Comment: [facility] has implemented the eGFR calculation approach that does not have a coefficient for race that conforms to the NKF-ASN Task Force Recommendations. Performed By: #### 4 6124 #### LAB [address] [place] [address] Adonay Hanks M.D. [id number] Sodium [Moles/Vol] 139 mmol/L Normal 135-145 [facility] Comment on above: Order Comment: [facility] has implemented the eGFR calculation approach that does not have a coefficient for race that conforms to the NKF-ASN Task Force Recommendations. Performed By: #### 4 6124 #### LAB [address] [place] [address] Adonay Hanks M.D. [id number] Urea nitrogen [Mass/Vol] 22 mg/dL Normal 8-25 [facility] Comment on above: Order Comment: [facility] has implemented the eGFR calculation approach that does not have a coefficient for race that conforms to the NKF-ASN Task Force Recommendations. Performed By: #### 4 6124 #### LAB [address] [place] [address] Adonay Hanks M.D. [id number] Urea nitrogen/Creatinine [Mass ratio] 34.9 mg/mg High 10.0-20.0 [facility] Comment on above: Order Comment: [facility] has implemented the eGFR calculation approach that does not have a coefficient for race that conforms to the NKF-ASN Task Force Recommendations. Performed By: #### 4 6124 #### LAB [address] [place] [address] Adonay Hanks M.D. [id number] CBC WITH AUTO DIFFERENTIALon 02-17-2024 AUTO NRBC 0.0 % [facility] Comment on above: Performed By: #### L [id number] #### LAB [address] [place] [address] Adonay Hanks M.D. [id number] AUTO NRBC ABS COUNT 0.00 K/mcL Normal 0.00-0.00 [facility] Comment on above: Performed By: #### L [id number] #### LAB [address] [place] [address] Adonay Hanks M.D. [id number] BASOPHILS ABSOLUTE COUNT 0.06 K/mcL Normal 0.00-0.30 [facility] Comment on above: Performed By: #### L [id number] #### LAB [address] [place] [address] Adonay Hanks M.D. [id number] Basophils/100 WBC (Bld) 0.5 % [facility] Comment on above: Performed By: #### L [id number] #### LAB [address] [place] [address] Adonay Hanks M.D. [id number] Eosinophils (Bld) [#/Vol] 0.06 10*3/uL Normal 0.00-0.50 [facility] Comment on above: Performed By: #### L IS1797 #### LAB [address] [place] [address] Adonay Hanks M.D. [id number] Eosinophils/100 WBC (Bld) 0.5 % [facility] Comment on above: Performed By: #### L [id number] #### LAB [address] [place] [address] Adonay Hanks M.D. [id number] Erythrocyte distribution width (RBC) [Ratio] 13.6 % Normal 11.6-14.8 [facility] Comment on above: Performed By: #### L [id number] #### LAB [address] [place] [address] Adonay Hanks M.D. [id number] Hematocrit (Bld) [Volume fraction] 41.7 % Normal 36.0-46.0 [facility] Comment on above: Performed By: #### L [id number] #### LAB [address] [place] [address] Adonay Hanks M.D. [id number] Hemoglobin (Bld) [Mass/Vol] 14.2 g/dL Normal 12.0-16.0 [facility] Comment on above: Performed By: #### L [id number] #### LAB [address] [place] [address] Adonay Hanks M.D. [id number] IG ABSOLUTE 0.08 K/mcL Normal 0.00-0.30 [facility] Comment on above: Performed By: #### L [id number] #### LAB [address] [place] [address] Adonay Hanks M.D. [id number] IG PERCENT 0.70 % Normal [facility] Comment on above: Result Comment: The IG parameter is the percentage of metamyelocytes, myelocytes and promyelocytes. An immature granulocyte count (IG) of 1% or more suggests the possibility of infection, an IG count of 3% is very likely related to an infection. Performed By: #### L [id number] #### LAB [address] [place] [address] Adonay Hanks M.D. [id number] Lymphocytes (Bld) [#/Vol] 1.61 10*3/uL Normal 0.90-4.00 [facility] Comment on above: Performed By: #### L [id number] #### LAB [address] [place] [address] Adonay Hanks M.D. [id number] Lymphocytes/100 WBC (Bld) 14.2 % Normal [facility] Comment on above: Performed By: #### L [id number] #### LAB [address] [place] [address] Adonay Hanks M.D. [id number] MCH (RBC) [Entitic mass] 29.5 pg Normal 26.0-34.0 [facility] Comment on above: Performed By: #### L [id number] #### LAB [address] [place] [address] Adonay Hanks M.D. [id number] MCV (RBC) [Entitic vol] 86.7 fL Normal 80.0-100.0 [facility] Comment on above: Performed By: #### L [id number] #### LAB [address] [place] [address] Adonay Hanks M.D. [id number] MEAN CORPUSCULAR HEMOGLOBIN CONC 34.1 g/dL Normal 31.0-37.0 [facility] Comment on above: Performed By: #### L [id number] #### LAB [address] [place] [address] Adonay Hanks M.D. [id number] Monocytes (Bld) [#/Vol] 0.70 10*3/uL Normal 0.30-0.90 [facility] Comment on above: Performed By: #### L [id number] #### LAB [address] [place] [address] Adonay Hanks M.D. [id number] Monocytes/100 WBC (Bld) 6.2 % Normal [facility] Comment on above: Performed By: #### L [id number] #### LAB [address] [place] [address] Adonay Hanks M.D. [id number] NEUTROPHILS ABSOLUTE COUNT 8.82 K/mcL High 1.70-7.00 [facility] Comment on above: Performed By: #### L [id number] #### LAB [address] [place] [address] Adonay Hanks M.D. [id number] Neutrophils/100 WBC (Bld) 77.9 % Normal [facility] Comment on above: Performed By: #### L [id number] #### LAB [address] [place] [address] Adonay Hanks M.D. [id number] Platelet mean volume (Bld) [Entitic vol] 9.5 fL Normal 9.4-12.4 [facility] Comment on above: Performed By: #### L AH1206 #### LAB [address] [place], [place] [address] Adonay Hanks M.D. [id number] Platelets (Bld) [#/Vol] 199 10*3/uL Normal 150-400 [facility] Comment on above: Performed By: #### L [id number] #### [facility] LAB [address] [place], [place] [address] Adonay Hanks M.D. [id number] RBC (Bld) [#/Vol] 4.81 10*6/uL Normal 4.00-5.20 [facility] Comment on above: Performed By: #### L [id number] #### [facility] LAB [address] [place] [id number] Adonay Hanks M.D. [id number] WBC (Bld) [#/Vol] 11.33 10*3/uL High 4.50-11.00 [facility] Comment on above: Performed By: #### L [id number] #### LAB [address] [place] [address] Adonay Hanks M.D. [id number] CT HEAD OR BRAIN WITHOUT CON TRASTon 02-17-2024 CT HEAD OR BRAIN WITHOUT CONTRAST EXAMINATION: CT HEAD OR BRAIN WITHOUT CONTRAST HISTORY: ORDERING SYSTEM PROVIDED HISTORY: elevated blood pressure. meningioma, TECHNOLOGIST PROVIDED HISTORY: Illness/Other Reason for exam: headache, elevated bp Encounter Type: Initial Additional signs and symptoms: . ORDERING SYSTEM PROVIDED DIAGNOSIS CODES: R03.0 Elevated blood pressure reading COMPARISON: CT head without contrast, 11/20/2022. TECHNIQUE: CT examination of the head without IV contrast. Dose reduction techniques were achieved by using automated exposure control and/or adjustment of mA and/or kV according to patient size and/or use of iterative reconstruction technique. FINDINGS: Paranasal sinuses are clear. Middle ear cavities and mastoid air cells are clear. Skull base intact. No skull lesion. Nasopharynx normal. Logistics Engineering Manager spaces are normal. Prior cataract surgery. Mild generalized brain atrophy. Mild chronic microvascular ischemic changes. No extra-axial fluid collection. No mass effect. No shift of midline. No acute intracranial hemorrhage. There is a meningioma over the left frontal parietal lobe convexity measuring approximately 7 x 17 mm. This appears to be stable in size. No vasogenic edema in the brain. IMPRESSION: 1. No acute findings. No hemorrhage. 2. There is a meningioma over the left frontal parietal lobe convexity measuring approximately 7 x 17 mm. No mass effect on the brain. This lesion appears stable. DMG/alt Workstation ID: [id number] Dictated by: ANDRE LYLES on ThuFeb 17, 2024 3:18:40 PM EDT Transcribed by: CRISTINA DUARTE on ThuFeb 17, 2024 3:47:31 PM EDT Finalized by: ANDRE LYLES on ThuFeb 17, 2024 4:19:32 PM EDT Normal [facility] Comment on above: Order Comment: Injur y/Trauma or Illness?:Illness/OtherHow long have you had these symptoms (acute/chronic)?:AcuteReason for exam?:headache, elevated bpType of Exam?:InitialAdditional signs and symptoms?:. ED Prov Noteon 02-17-2024 ED Prov Note [facility] EMERGENCY DEPARTMENT ATTENDING NOTE: NAME: Hilaria Lyons CSN: [id number] 73 y.o. PCP: No, Physician History: Chief Complaint: Hypertension HPI: 74-year-old male with past medical history of hypertension diabetes meningioma presents to the emergency department for evaluation of elevated blood pressure. Patient denies any symptoms associate with her elevated blood pressure. Patient states that she is compliant with her medication has not missed any doses. No recent travel and sick contacts antibiotic use. Patient [place] any other symptoms at this time. Patient admits that she has been stressed lately and has not had that much sleep this evening through today. Patient states a family member had a surgical procedure and was concerned for her. PMHx: Past Medical History: Diagnosis Date Arthritis Diabetes mellitus (HCC) Hypertension Meningioma (HCC) 06/08/2022 Obesity Seizures (HCC) PMSx: Past Surgical History: Procedure Laterality Date CATARACT EXTRACTION, BILATERAL CHOLECYSTECTOMY EYE SURGERY Bilateral 2017 cataracts TUBAL LIGATION 1986 FAM. Hx: Family History Problem Relation Age of Onset Heart disease Mother Diabetes Mother Cancer Father SOC. Hx: Social History Socioeconomic History Marital status: Tobacco Use Smoking status: Never Smokeless tobacco: Never Vaping Use Vaping status: Never Used Substance and Sexual Activity Alcohol use: Never Drug use: Never Sexual activity: Not Currently MEDs: Previous Medications Medication Sig acetaminophen (TYLENOL) 325 MG tablet Take 1 (one) tablet (325 mg total) by mouth every 6 (six) hours as needed . amLODIPine (NORVASC) 10 MG tablet Take 1 (one) tablet (10 mg total) by mouth daily . aspirin-acetaminophen -caffeine (EXCEDRIN MIGRAINE) 250-250-65 mg per tablet Take 1 (one) tablet by mouth every 6 (six) hours as needed for pain . carvediloL (COREG) 25 MG tablet Take 1 (one) tablet (25 mg total) by mouth 2 (two) times a day . cholecalciferol, vitamin D3, 50 mcg (2,000 unit) Tab Take 1 (one) tablet (2,000 Units total) by mouth . cloNIDine HCL (CATAPRES) 0.1 MG tablet Take 1 (one) tablet (0.1 mg total) by mouth 4 (four) times a day . ezetimibe (ZETIA) 10 mg tablet Take 1 (one) tablet (10 mg total) by mouth daily . ibuprofen (ADVIL,MOTRIN) 200 MG tablet Take 2 (two) tablets (400 mg total) by mouth every 6 (six) hours as needed for pain . insulin NPH and regular human 100 unit/mL (70-30) InPn Take 12 units before breakfast and 8 units before dinner. Needs Reli-on pens . levETIRAcetam (KEPPRA) 500 MG tablet Take 1 (one) tablet (500 mg total) by mouth 2 (two) times a day . (Patient not taking: Reported on 02/17/2024 .) lisinopriL-hydrochlor othiazide (PRINZIDE,ZESTORETIC) 20-12.5 mg per tablet Take 2 (two) tablets by mouth daily with lunch . metFORMIN (GLUCOPHAGE) 1000 MG tablet Take 1 (one) tablet (1,000 mg total) by mouth 2 (two) times a day with meals . multivitamin (THERAGRAN) per tablet Take 1 (one) tablet by mouth daily (Women's 50+ with soy) . pen needle, diabetic 31 gauge x 5/16 Ndle Use for insulin injection BID Dx E11.65 . ALL: Allergies Allergen Reactions [place] Hives Poison [place] Extract Poison [place] Extract Unknown Penicillins GI Intolerance Physical Exam: Patient Vitals for the past 24 hrs: BP Temp Temp src Pulse Resp SpO2 02/17/24 2000 (!) 150/62 -- -- 90 -- 96 % 02/17/24 1800 (!) 143/69 -- -- 84 18 97 % 02/17/24 1746 139/67 -- -- 83 (!) 19 96 % 02/17/24 1530 (!) 154/87 -- -- -- -- 96 % 02/17/24 1500 (!) 151/87 -- -- -- -- 97 % 02/17/24 1430 (!) 159/76 -- -- 88 18 98 % 02/17/24 1101 (!) 191/100 98.2 degrees F (36.8 degrees C) Oral (!) 125 16 97 % Physical Exam Vitals and nursing note reviewed. Constitutional: General: She is awake. HENT: Head: Normocephalic and atraumatic. Nose: Nose normal. Mouth/Throat: Pharynx: Oropharynx is clear. Eyes: General: Lids are normal. No scleral icterus. Extraocular Movements: Extraocular movements intact. Pupils: Pupils are equal, round, and reactive to light. Cardiovascular: Rate and Rhythm: Normal rate and regular rhythm. Pulmonary: Effort: Pulmonary effort is normal. No accessory muscle usage or respiratory distress. Skin: General: Skin is warm. Capillary Refill: Capillary refill takes less than 2 seconds. Comments: No acute rash visualized on exposed skin Neurological: General: No focal deficit present. Mental Status: She is alert and oriented to person, place, and time. GCS: GCS eye subscore is 4. GCS verbal subscore is 5. GCS motor subscore is 6. Cranial Nerves: No dysarthria or facial asymmetry. Sensory: Sensation is intact. Motor: Motor function is intact. Coordination: Coordination is intact. NIH Scale: LOC: 0 - alert LOC Questions: 0 - answers both correctly LOC Commands: 0 - performs both correctly Best gaze: 0 - normal (more content not included)... Normal [facility] TROPONINon 02-17-2024 TROPONIN T DELTA CHANGE INTERPRETATION Probable non-acute cardiac injury or late presentation of acute injury. Normal [facility] Comment on above: Performed By: #### [id number] #### [address] [place], [place] [address] Adonay Hanks M.D. [id number] TROPONIN T DELTA DIFFERENCE -3 ng/L Normal < = -/+ 7 change [facility] Comment on above: Performed By: #### 4 [id number] #### [address] [place] [address] Adonay Hanks M.D. [id number] TROPONIN T NG/L 15 ng/L Off scale high <=14 [facility] Comment on above: Performed By: #### 4 6608 #### [address] [place] [address] Adonay Hanks M.D. [id number] BASELINE TROPONIN T NG/L 18 ng/L Off scale high <=14 [facility] Comment on above: Performed By: #### 4 6608 #### [address] [place] [address] Adonay Hanks M.D. [id number] TROPONIN T INTERPRETATION Possible acute cardiac injury. Normal [facility] Comment on above: Performed By: #### 4 6608 #### [address] [place] [address] Adonay Hanks M.D. [id number] URINALYSISon 02-17-2024 BACTERIA, URINE None Seen Normal None Seen [facility] Comment on above: Order Comment: Micro scopic examination is performed on all urinalysis samples and only positive findings are reported. The test for blood on the chemical analytic portion of urinalysis may also be positive due to hemoglobinuria and myoglobinuria and if red blood cells are present they are quantified by microscopic examination. Performed By: #### 4 [id number] #### [address] [place] [address] Adonay Hanks M.D. [id number] BILIRUBIN, URINE Negative Normal Negative [facility] Comment on above: Order Comment: Micro scopic examination is performed on all urinalysis samples and only positive findings are reported. The test for blood on the chemical analytic portion of urinalysis may also be positive due to hemoglobinuria and myoglobinuria and if red blood cells are present they are quantified by microscopic examination. Performed By: #### 4 [id number] #### [address] [place] [address] Adonay Hanks M.D. [id number] BLOOD, URINE Negative Normal Negative [facility] Comment on above: Order Comment: Micro scopic examination is performed on all urinalysis samples and only positive findings are reported. The test for blood on the chemical analytic portion of urinalysis may also be positive due to hemoglobinuria and myoglobinuria and if red blood cells are present they are quantified by microscopic examination. Performed By: #### 4 [id number] #### [address] [place] [address] Adonay Hanks M.D. [id number] Clarity (U) Clear Normal Clear [facility] Comment on above: Order Comment: Micro scopic examination is performed on all urinalysis samples and only positive findings are reported. The test for blood on the chemical analytic portion of urinalysis may also be positive due to hemoglobinuria and myoglobinuria and if red blood cells are present they are quantified by microscopic examination. Performed By: #### 4 [id number] #### [address] [place] [address] Adonay Hanks M.D. [id number] Color (U) Yellow Normal Colorless, Yellow [facility] Comment on above: Order Comment: Micro scopic examination is performed on all urinalysis samples and only positive findings are reported. The test for blood on the chemical analytic portion of urinalysis may also be positive due to hemoglobinuria and myoglobinuria and if red blood cells are present they are quantified by microscopic examination. Performed By: #### 4 [id number] #### [address] [place] [address] Adonay Hanks M.D. [id number] Glucose Ql (U) Negative Normal Negative [facility] Comment on above: Order Comment: Micro scopic examination is performed on all urinalysis samples and only positive findings are reported. The test for blood on the chemical analytic portion of urinalysis may also be positive due to hemoglobinuria and myoglobinuria and if red blood cells are present they are quantified by microscopic examination. Performed By: #### 4 6625 #### [address] [place], [place] [address] Adonay Hanks M.D. [id number] Hyaline casts LM Ql (Urine sed) 6-10 Abnormal 0-2 [facility] Comment on above: Order Comment: Micro scopic examination is performed on all urinalysis samples and only positive findings are reported. The test for blood on the chemical analytic portion of urinalysis may also be positive due to hemoglobinuria and myoglobinuria and if red blood cells are present they are quantified by microscopic examination. Performed By: #### 4 [id number] #### [address] [place] [id number] Adonay Hanks M.D. [id number] Ketones Ql (U) Negative Normal Negative [facility] Comment on above: Order Comment: Micro scopic examination is performed on all urinalysis samples and only positive findings are reported. The test for blood on the chemical analytic portion of urinalysis may also be positive due to hemoglobinuria and myoglobinuria and if red blood cells are present they are quantified by microscopic examination. Performed By: #### 4 [id number] #### [address] [place] [address] Adonay Hanks M.D. [id number] Leukocyte esterase Test strip Ql (U) Trace Abnormal Negative [facility] Comment on above: Order Comment: Micro scopic examination is performed on all urinalysis samples and only positive findings are reported. The test for blood on the chemical analytic portion of urinalysis may also be positive due to hemoglobinuria and myoglobinuria and if red blood cells are present they are quantified by microscopic examination. Performed By: #### 4 [id number] #### [address] [place] [address] Adonay Hanks M.D. [id number] MUCUS, URINE Rare Normal None Seen, Rare [facility] Comment on above: Order Comment: Micro scopic examination is performed on all urinalysis samples and only positive findings are reported. The test for blood on the chemical analytic portion of urinalysis may also be positive due to hemoglobinuria and myoglobinuria and if red blood cells are present they are quantified by microscopic examination. Performed By: #### 4 [id number] #### [facility] [address] [place] [address] Adonay Hanks M.D. [id number] NITRITE, URINE Negative Normal Negative [facility] Comment on above: Order Comment: Micro scopic examination is performed on all urinalysis samples and only positive findings are reported. The test for blood on the chemical analytic portion of urinalysis may also be positive due to hemoglobinuria and myoglobinuria and if red blood cells are present they are quantified by microscopic examination. Performed By: #### 4 [id number] #### [address] [place] [address] Adonay Hanks M.D. [id number] pH (U) 6.0 [pH] Normal 5.0-7.0 [facility] Comment on above: Order Comment: Micro scopic examination is performed on all urinalysis samples and only positive findings are reported. The test for blood on the chemical analytic portion of urinalysis may also be positive due to hemoglobinuria and myoglobinuria and if red blood cells are present they are quantified by microscopic examination. Performed By: #### 4 [id number] #### [facility] [address] [place] [address] Adonay Hanks M.D. [id number] PROTEIN, URINE Negative Normal Negative [facility] Comment on above: Order Comment: Micro scopic examination is performed on all urinalysis samples and only positive findings are reported. The test for blood on the chemical analytic portion of urinalysis may also be positive due to hemoglobinuria and myoglobinuria and if red blood cells are present they are quantified by microscopic examination. Performed By: #### 4 6625 #### [facility] [address] [place] [address] Adonay Hanks M.D. [id number] RBC, URINE < Normal 0-3 [facility] Comment on above: Order Comment: Micro scopic examination is performed on all urinalysis samples and only positive findings are reported. The test for blood on the chemical analytic portion of urinalysis may also be positive due to hemoglobinuria and myoglobinuria and if red blood cells are present they are quantified by microscopic examination. Performed By: #### 4 6625 #### [address] [place], [place] [address] Adonay Hanks M.D. [id number] Specific gravity (U) [Rel density] 1.011 Normal 1.005-1.025 [facility] Comment on above: Order Comment: Micro scopic examination is performed on all urinalysis samples and only positive findings are reported. The test for blood on the chemical analytic portion of urinalysis may also be positive due to hemoglobinuria and myoglobinuria and if red blood cells are present they are quantified by microscopic examination. Performed By: #### 4 [id number] #### [address] [place], [place] [address] Adonay Hanks M.D. [id number] SQUAMOUS EPITHELIAL < Normal 0-4 [facility] Comment on above: Order Comment: Micro scopic examination is performed on all urinalysis samples and only positive findings are reported. The test for blood on the chemical analytic portion of urinalysis may also be positive due to hemoglobinuria and myoglobinuria and if red blood cells are present they are quantified by microscopic examination. Performed By: #### 4 6625 #### [address] [place], [place] [address] Adonay Hanks M.D. [id number] UROBILINOGEN, URINE <2.0 Normal <2.0 [facility] Comment on above: Order Comment: Micro scopic examination is performed on all urinalysis samples and only positive findings are reported. The test for blood on the chemical analytic portion of urinalysis may also be positive due to hemoglobinuria and myoglobinuria and if red blood cells are present they are quantified by microscopic examination. Performed By: #### 4 [id number] #### [facility] [address] [place], [place] [address] Adonay Hanks M.D. [id number] WBC LM.HPF (Urine sed) [#/Area] 1 /[HPF] Normal 0-5 [facility] Comment on above: Order Comment: Micro scopic examination is performed on all urinalysis samples and only positive findings are reported. The test for blood on the chemical analytic portion of urinalysis may also be positive due to hemoglobinuria and myoglobinuria and if red blood cells are present they are quantified by microscopic examination. Performed By: #### 4 [id number] #### [address] [place] [address] Adonay Hanks M.D. [id number] COMPREHENSIVE METABOLIC PANE Remy 02-12-2024 Albumin [Mass/Vol] 4.2 g/dL Normal 3.2-5.2 [facility] Comment on above: Order Comment: [facility] has implemented the eGFR calculation approach that does not have a coefficient for race that conforms to the NKF-ASN Task Force Recommendations. Performed By: #### 4 [id number] #### [address] [place] [address] Adonay Hanks M.D. [id number] ALP [Catalytic activity/Vol] 69 U/L Normal 40-150 [facility] Comment on above: Order Comment: [facility] has implemented the eGFR calculation approach that does not have a coefficient for race that conforms to the NKF-ASN Task Force Recommendations. Performed By: #### 4 6126 #### [address] [place] [address] Adonay Hanks M.D. [id number] ALT [Catalytic activity/Vol] 12 U/L Normal 0-35 U/L [facility] Comment on above: Order Comment: [facility] has implemented the eGFR calculation approach that does not have a coefficient for race that conforms to the NKF-ASN Task Force Recommendations. Performed By: #### 4 6126 #### [address] [place] [address] Adonay Hanks M.D. [id number] Anion gap [Moles/Vol] 14 mmol/L Normal 10-20 [facility] Comment on above: Order Comment: [facility] has implemented the eGFR calculation approach that does not have a coefficient for race that conforms to the NKF-ASN Task Force Recommendations. Performed By: #### 4 6126 #### [address] [place] [address] Adonay Hanks M.D. [id number] AST [Catalytic activity/Vol] 19 U/L Normal 0-35 U/L [facility] Comment on above: Order Comment: [facility] has implemented the eGFR calculation approach that does not have a coefficient for race that conforms to the NKF-ASN Task Force Recommendations. Performed By: #### 4 6126 #### [address] [place] [address] Adonay Hanks M.D. [id number] Bilirubin [Mass/Vol] 0.8 mg/dL Normal 0.0-1.3 [facility] Comment on above: Order Comment: [facility] has implemented the eGFR calculation approach that does not have a coefficient for race that conforms to the NKF-ASN Task Force Recommendations. Performed By: #### 4 6126 #### [address] [place] [address] Adonay Hanks M.D. [id number] Calcium [Mass/Vol] 9.6 mg/dL Normal 8.4-10.2 [facility] Comment on above: Order Comment: [facility] has implemented the eGFR calculation approach that does not have a coefficient for race that conforms to the NKF-ASN Task Force Recommendations. Performed By: #### 4 6126 #### [facility] [address] [place] [address] Adonay Hanks M.D. [id number] Chloride [Moles/Vol] 103 mmol/L Normal 98-108 [facility] Comment on above: Order Comment: [facility] has implemented the eGFR calculation approach that does not have a coefficient for race that conforms to the NKF-ASN Task Force Recommendations. Performed By: #### 4 6126 #### [address] [place] [address] Adonay Hanks M.D. [id number] Creatinine [Mass/Vol] 0.57 mg/dL Low 0.60-1.10 [facility] Comment on above: Order Comment: [facility] has implemented the eGFR calculation approach that does not have a coefficient for race that conforms to the NKF-ASN Task Force Recommendations. Performed By: #### 4 6107 #### [address] [place] [address] Adonay Hanks M.D. [id number] EGFR 97 mL/min/1.73 m2 Normal >=60 [facility] Comment on above: Order Comment: [facility] has implemented the eGFR calculation approach that does not have a coefficient for race that conforms to the NKF-ASN Task Force Recommendations. Result Comment: Yessica mated GFR was calculated using the 2020 CKD-EPI creatinine equation. Performed By: #### 4 6126 #### [address] [place] [address] Adonay Hanks M.D. [id number] Glucose [Mass/Vol] 159 mg/dL High 65-99 [facility] Comment on above: Order Comment: [facility] has implemented the eGFR calculation approach that does not have a coefficient for race that conforms to the NKF-ASN Task Force Recommendations. Performed By: #### 4 6126 #### [facility] [address] [place] [address] Adonay Hanks M.D. [id number] HCO3 (Bld) [Moles/Vol] 27 mmol/L Normal 21-32 [facility] Comment on above: Order Comment: [facility] has implemented the eGFR calculation approach that does not have a coefficient for race that conforms to the NKF-ASN Task Force Recommendations. Performed By: #### 4 6126 #### [address] [place] [address] Adonay Hanks M.D. [id number] Potassium [Moles/Vol] 3.6 mmol/L Normal 3.5-5.1 [facility] Comment on above: Order Comment: [facility] has implemented the eGFR calculation approach that does not have a coefficient for race that conforms to the NKF-ASN Task Force Recommendations. Performed By: #### 4 6126 #### [facility] [address] [place] [address] Adonay Hanks M.D. [id number] Protein [Mass/Vol] 7.0 g/dL Normal 6.0-8.0 [facility] Comment on above: Order Comment: [facility] has implemented the eGFR calculation approach that does not have a coefficient for race that conforms to the NKF-ASN Task Force Recommendations. Performed By: #### 4 6126 #### [address] [place] [id number] Adonay Hanks M.D. [id number] Sodium [Moles/Vol] 140 mmol/L Normal 135-145 [facility] Comment on above: Order Comment: [facility] has implemented the eGFR calculation approach that does not have a coefficient for race that conforms to the NKF-ASN Task Force Recommendations. Performed By: #### 4 6126 #### [facility] [address] [place] [address] Adonay Hanks M.D. [id number] Urea nitrogen [Mass/Vol] 19 mg/dL Normal 8-25 [facility] Comment on above: Order Comment: [facility] has implemented the eGFR calculation approach that does not have a coefficient for race that conforms to the NKF-ASN Task Force Recommendations. Performed By: #### 4 6126 #### [address] [place] [address] Adonay Hanks M.D. [id number] Urea nitrogen/Creatinine [Mass ratio] 33.3 mg/mg High 10.0-20.0 [facility] Comment on above: Order Comment: [facility] has implemented the eGFR calculation approach that does not have a coefficient for race that conforms to the NKF-ASN Task Force Recommendations. Performed By: #### 4 6126 #### [facility] [address] [place], [place] [address] Adonay Hanks M.D. [id number] HEMOGLOBIN A1Con 02-12-2024 Glucose [Mass/Vol] 131 mg/dL High 74-114 [facility] Comment on above: Performed By: #### 4 8202 #### [facility] [address] [place] [id number] Adonay Hanks M.D. [id number] HbA1c (Bld) [Mass fraction] 6.2 % High 4.2-5.6 [facility] Comment on above: Performed By: #### 4 8202 #### [address] [place] [address] Adonay Hanks M.D. [id number] T4, FREEon 02-12-2024 Free T4 [Mass/Vol] 1.4 ng/dL Normal 0.7-1.7 [facility] Comment on above: Performed By: #### 4 6567 #### [address] [place] [address] Adonay Hanks M.D. [id number] TSHon 02-12-2024 TSH Qn 1.81 m[IU]/L Normal 0.27-4.20 [facility] Comment on above: Performed By: #### 4 6613 #### [address] [place] [address] Adonay Hanks M.D. [id number] CBC Auto Differentialon 05-16 Basophils (Bld) [#/Vol] 0.06 10*3/uL [facility] Basophils/100 WBC (Bld) 0.6 % [facility] Eosinophils (Bld) [#/Vol] 0.09 10*3/uL [facility] Eosinophils/100 WBC (Bld) 0.9 % [facility] Erythrocyte distribution width (RBC) [Entitic vol] 12.7 % 11.6 - 14.8 % [facility] Hematocrit (Bld) [Volume fraction] 46.0 % 36.0 - 46.0 % [facility] Hemoglobin (Bld) [Mass/Vol] 15.1 g/dL 12.0 - 16.0 g/dL [facility] Immature granulocytes (Bld) [#/Vol] 0.07 10*3/uL [facility] Immature granulocytes/100 WBC (Bld) 0.70 % [facility] Comment on above: The IG parameter is the percentage of metamyelocytes, myelocytes and promyelocytes. An immature granulocyte count (IG) of 1% or more suggests the possibility of infection, an IG count of 3% is very likely related to an infection. Lymphocytes (Bld) [#/Vol] 3.49 10*3/uL [facility] Lymphocytes/100 WBC (Bld) 34.4 % [facility] MCH (RBC) [Entitic mass] 29.0 pg 26.0 - 34.0 pg [facility] MCHC (RBC) [Mass/Vol] 32.8 g/dL 31.0 - 37.0 g/dL [facility] MCV (RBC) [Entitic vol] 88.5 fL 80.0 - 100.0 fL [facility] Monocytes (Bld) [#/Vol] 0.74 10*3/uL [facility] Monocytes/100 WBC (Bld) 7.3 % [facility] Neutrophils (Bld) [#/Vol] 5.69 10*3/uL [facility] [facility]/100 WBC (Bld) 56.1 % [facility] Nucleated RBC (Bld) [#/Vol] 0.00 10*3/uL [facility] Nucleated RBC/100 WBC (Bld) [Ratio] 0.0 % [facility] Platelet mean volume (Bld) [Entitic vol] 9.9 fL 9.4 - 12.4 fL [facility] Platelets (Bld) [#/Vol] 187 10*3/uL [facility] RBC (Bld) [#/Vol] 5.20 10*6/uL [facility] WBC (Bld) [#/Vol] 10.14 10*3/uL [facility] Comprehensive metabolic 2000 panelOrdered By: John Grijalva on 06-08-2022 Albumin [Mass/Vol] 2.7 g/dL Low 3.2 - 5.2 g/dL [facility] ALP [Catalytic activity/Vol] 63 U/L 40 - 150 U/L [facility] ALT [Catalytic activity/Vol] 18 U/L 14 - 65 U/L [facility] Anion gap [Moles/Vol] 13 mmol/L 10 - 20 mmol/L [facility] AST [Catalytic activity/Vol] 20 U/L 0 - 45 U/L [facility] Bilirubin [Mass/Vol] 0.6 mg/dL 0.0 - 1 .3 mg/dL [facility] Calcium [Mass/Vol] 8.8 mg/dL 8.4 - 10. 2 mg/dL [facility] Chloride [Moles/Vol] 110 mmol/L High 98 - 10 8 mmol/L [facility] Creatinine [Mass/Vol] 0.48 mg/dL Low 0.60 - 1.20 mg/dL [facility] GFR/1.73 sq M.predicted CKD-EPI (S/P/Bld) [Vol rate/Area] 101 - PINF [facility] Comment on above: Estimated GFR was ca lculated using the 2020 CKD-EPI creatinine equation. Glucose [Mass/Vol] 76 mg/dL 65 - 99 mg/dL [facility] HCO3 [Moles/Vol] 23 mmol/L 21 - 32 mmol/L [facility] Interpretation and review of laboratory results Abnormal [facility] Potassium [Moles/Vol] 3.7 mmol/L 3.5 - 5.1 mmol/L [facility] Protein [Mass/Vol] 5.2 g/dL Low 6.0 - 8.0 g/dL [facility] Sodium [Moles/Vol] 142 mmol/L 135 - 145 mmol/L [facility] Urea nitrogen [Mass/Vol] 11 mg/dL 8 - 25 mg/dL [facility] Urea nitrogen/Creatinine [Mass ratio] 22.9 mg/mg High 10.0 - 20.0 [facility] has implemented the eGFR calculation approach that does not have a coefficient for race that conforms to the NKF-ASN Task Force Recommendations. [facility] Glucose (Bld) [Mass/Vol]on 1 08-09-2021 Glucose [Mass/Vol] 200 mg/dL High 65 - 99 mg/dL [facility] Interpretation and review of laboratory results Abnormal [facility] Glucose [Mass/Vol] 103 mg/dL High 65 - 99 mg/dL [facility] Interpretation and review of laboratory results Abnormal [facility] Magnesium Levelon 06-08-2022 Magnesium [Mass/Vol] 2.0 mg/dL 1.6 - 2 .4 mg/dL [facility] Magnesium [Mass/Vol]on 06-08 Interpretation and review of laboratory results Normal [facility] Basic metabolic 2000 panelon 06-07-2022 Anion gap [Moles/Vol] 14 mmol/L 10 - 20 mmol/L [facility] Calcium [Mass/Vol] 9.2 mg/dL 8.4 - 10. 2 mg/dL [facility] Chloride [Moles/Vol] 102 mmol/L 98 - 10 8 mmol/L [facility] Creatinine [Mass/Vol] 0.58 mg/dL Low 0.60 - 1.20 mg/dL [facility] GFR/1.73 sq M.predicted CKD-EPI (S/P/Bld) [Vol rate/Area] 97 - PINF [facility] Comment on above: Estimated GFR was ca lculated using the 2020 CKD-EPI creatinine equation. Glucose [Mass/Vol] 344 mg/dL High 65 - 99 mg/dL [facility] HCO3 [Moles/Vol] 26 mmol/L 21 - 32 mmol/L [facility] Interpretation and review of laboratory results Abnormal [facility] Potassium [Moles/Vol] 3.9 mmol/L 3.5 - 5.1 mmol/L [facility] Sodium [Moles/Vol] 138 mmol/L 135 - 145 mmol/L [facility] Urea nitrogen [Mass/Vol] 12 mg/dL 8 - 25 mg/dL [facility] Urea nitrogen/Creatinine [Mass ratio] 20.7 mg/mg High 10.0 - 20.0 [facility] y Services has implemented the eGFR calculation approach that does not have a coefficient for race that conforms to the NKF-ASN Task Force Recommendations. [facility] Anion gap [Moles/Vol] 8 mmol/L Low 10 - 20 mmol/L [facility] Calcium [Mass/Vol] 9.1 mg/dL 8.4 - 10. 2 mg/dL [facility] Chloride [Moles/Vol] 105 mmol/L 98 - 10 8 mmol/L [facility] Creatinine [Mass/Vol] 0.52 mg/dL Low 0.60 - 1.20 mg/dL [facility] GFR/1.73 sq M.predicted CKD-EPI (S/P/Bld) [Vol rate/Area] 99 - PINF [facility] Comment on above: Estimated GFR was ca lculated using the 2020 CKD-EPI creatinine equation. Glucose [Mass/Vol] 104 mg/dL High 65 - 99 mg/dL [facility] HCO3 [Moles/Vol] 32 mmol/L 21 - 32 mmol/L [facility] Interpretation and review of laboratory results Abnormal [facility] Potassium [Moles/Vol] 3.5 mmol/L 3.5 - 5.1 mmol/L [facility] Sodium [Moles/Vol] 141 mmol/L 135 - 145 mmol/L [facility] Urea nitrogen [Mass/Vol] 12 mg/dL 8 - 25 mg/dL [facility] Urea nitrogen/Creatinine [Mass ratio] 23.1 mg/mg High 10.0 - 20.0 [facility] y Services has implemented the eGFR calculation approach that does not have a coefficient for race that conforms to the NKF-ASN Task Force Recommendations. [facility] Anion gap [Moles/Vol] 10 mmol/L 10 - 20 mmol/L [facility] Calcium [Mass/Vol] 9.2 mg/dL 8.4 - 10. 2 mg/dL [facility] Chloride [Moles/Vol] 104 mmol/L 98 - 10 8 mmol/L [facility] Creatinine [Mass/Vol] 0.58 mg/dL Low 0.60 - 1.20 mg/dL [facility] GFR/1.73 sq M.predicted CKD-EPI (S/P/Bld) [Vol rate/Area] 97 - PINF [facility] Comment on above: Estimated GFR was ca lculated using the 2020 CKD-EPI creatinine equation. Glucose [Mass/Vol] 224 mg/dL High 65 - 99 mg/dL [facility] HCO3 [Moles/Vol] 28 mmol/L 21 - 32 mmol/L [facility] Interpretation and review of laboratory results Abnormal [facility] Potassium [Moles/Vol] 4.1 mmol/L 3.5 - 5.1 mmol/L [facility] Sodium [Moles/Vol] 138 mmol/L 135 - 145 mmol/L [facility] Urea nitrogen [Mass/Vol] 15 mg/dL 8 - 25 mg/dL [facility] Urea nitrogen/Creatinine [Mass ratio] 25.9 mg/mg High 10.0 - 20.0 [facility] has implemented the eGFR calculation approach that does not have a coefficient for race that conforms to the NKF-ASN Task Force Recommendations. [facility] Anion gap [Moles/Vol] 13 mmol/L 10 - 20 mmol/L [facility] Calcium [Mass/Vol] 9.3 mg/dL 8.4 - 10. 2 mg/dL [facility] Chloride [Moles/Vol] 102 mmol/L 98 - 10 8 mmol/L [facility] Creatinine [Mass/Vol] 0.73 mg/dL 0.60 - 1.20 mg/dL [facility] GFR/1.73 sq M.predicted CKD-EPI (S/P/Bld) [Vol rate/Area] 88 - PINF [facility] Comment on above: Estimated GFR was ca lculated using the 2020 CKD-EPI creatinine equation. Glucose [Mass/Vol] 394 mg/dL High 65 - 99 mg/dL [facility] HCO3 [Moles/Vol] 27 mmol/L 21 - 32 mmol/L [facility] Interpretation and review of laboratory results Abnormal [facility] Potassium [Moles/Vol] 3.5 mmol/L 3.5 - 5.1 mmol/L [facility] Sodium [Moles/Vol] 138 mmol/L 135 - 145 mmol/L [facility] Urea nitrogen [Mass/Vol] 14 mg/dL 8 - 25 mg/dL [facility] Urea nitrogen/Creatinine [Mass ratio] 19.2 mg/mg 10.0 - 20.0 [facility] has implemented the eGFR calculation approach that does not have a coefficient for race that conforms to the NKF-ASN Task Force Recommendations. [facility] Beta hydroxybutyrate [Moles/ Vol]on 06-07-2022 Interpretation and review of laboratory results Abnormal [facility] Interpretation and review of laboratory results Normal [facility] Interpretation and review of laboratory results Normal [facility] Interpretation and review of laboratory results Normal [facility] Beta-Hydroxybutyrateon 06-07 Beta hydroxybutyrate [Moles/Vol] 0.9 mmol/L High 0.0 - 0.3 mmol/L [facility] Beta hydroxybutyrate [Moles/Vol] mmol/L 0.0 - 0.3 mmol/L [facility] Beta hydroxybutyrate [Moles/Vol] mmol/L 0.0 - 0.3 mmol/L [facility] Beta hydroxybutyrate [Moles/Vol] 0.1 mmol/L 0.0 - 0.3 mmol/L [facility] CBC Auto Differentialon 05-16 Basophils (Bld) [#/Vol] 0.03 10*3/uL [facility] Basophils/100 WBC (Bld) 0.3 % [facility] Eosinophils (Bld) [#/Vol] 0.07 10*3/uL [facility] Eosinophils/100 WBC (Bld) 0.6 % [facility] Erythrocyte distribution width (RBC) [Entitic vol] 12.5 % 11.6 - 14.8 % [facility] Hematocrit (Bld) [Volume fraction] 43.3 % 36.0 - 46.0 % [facility] Hemoglobin (Bld) [Mass/Vol] 14.7 g/dL 12.0 - 16.0 g/dL [facility] Immature granulocytes (Bld) [#/Vol] 0.07 10*3/uL [facility] Immature granulocytes/100 WBC (Bld) 0.60 % [facility] Comment on above: The IG parameter is the percentage of metamyelocytes, myelocytes and promyelocytes. An immature granulocyte count (IG) of 1% or more suggests the possibility of infection, an IG count of 3% is very likely related to an infection. Interpretation and review of laboratory results Abnormal [facility] Lymphocytes (Bld) [#/Vol] 2.47 10*3/uL [facility] Lymphocytes/100 WBC (Bld) 22.7 % [facility] MCH (RBC) [Entitic mass] 29.2 pg 26.0 - 34.0 pg [facility] MCHC (RBC) [Mass/Vol] 33.9 g/dL 31.0 - 37.0 g/dL [facility] MCV (RBC) [Entitic vol] 85.9 fL 80.0 - 100.0 fL [facility] Monocytes (Bld) [#/Vol] 0.73 10*3/uL [facility] Monocytes/100 WBC (Bld) 6.7 % [facility] Neutrophils (Bld) [#/Vol] 7.49 10*3/uL High [facility] Neutrophils/100 WBC (Bld) 69.1 % [facility] Nucleated RBC (Bld) [#/Vol] 0.00 10*3/uL [facility] Nucleated RBC/100 WBC (Bld) [Ratio] 0.0 % [facility] Platelet mean volume (Bld) [Entitic vol] 10.5 fL 9.4 - 12.4 fL [facility] Platelets (Bld) [#/Vol] 182 10*3/uL [facility] RBC (Bld) [#/Vol] 5.04 10*6/uL [facility] WBC (Bld) [#/Vol] 10.86 10*3/uL [facility] Comprehensive metabolic 2000 panelon 06-07-2022 Albumin [Mass/Vol] 2.9 g/dL Low 3.2 - 5.2 g/dL [facility] ALP [Catalytic activity/Vol] 69 U/L 40 - 150 U/L [facility] ALT [Catalytic activity/Vol] 20 U/L 14 - 65 U/L [facility] Anion gap [Moles/Vol] 10 mmol/L 10 - 20 mmol/L [facility] AST [Catalytic activity/Vol] 17 U/L 0 - 45 U/L [facility] Bilirubin [Mass/Vol] 0.5 mg/dL 0.0 - 1 .3 mg/dL [facility] Calcium [Mass/Vol] 9.2 mg/dL 8.4 - 10. 2 mg/dL [facility] Chloride [Moles/Vol] 104 mmol/L 98 - 10 8 mmol/L [facility] Creatinine [Mass/Vol] 0.58 mg/dL Low 0.60 - 1.20 mg/dL [facility] GFR/1.73 sq M.predicted CKD-EPI (S/P/Bld) [Vol rate/Area] 97 - PINF [facility] Comment on above: Estimated GFR was ca lculated using the 2020 CKD-EPI creatinine equation. Glucose [Mass/Vol] 224 mg/dL High 65 - 99 mg/dL [facility] HCO3 [Moles/Vol] 28 mmol/L 21 - 32 mmol/L [facility] Interpretation and review of laboratory results Abnormal [facility] Potassium [Moles/Vol] 4.1 mmol/L 3.5 - 5.1 mmol/L [facility] Protein [Mass/Vol] 5.5 g/dL Low 6.0 - 8.0 g/dL [facility] Sodium [Moles/Vol] 138 mmol/L 135 - 145 mmol/L [facility] Urea nitrogen [Mass/Vol] 15 mg/dL 8 - 25 mg/dL [facility] Urea nitrogen/Creatinine [Mass ratio] 25.9 mg/mg High 10.0 - 20.0 [facility] has implemented the eGFR calculation approach that does not have a coefficient for race that conforms to the NKF-ASN Task Force Recommendations. [facility] Glucose (Bld) [Mass/Vol]on 08-08-2021 Glucose [Mass/Vol] 120 mg/dL High 65 - 99 mg/dL [facility] Interpretation and review of laboratory results Abnormal [facility] Glucose [Mass/Vol] 169 mg/dL High 65 - 99 mg/dL [facility] Interpretation and review of laboratory results Abnormal [facility] Glucose [Mass/Vol] 149 mg/dL High 65 - 99 mg/dL [facility] Interpretation and review of laboratory results Abnormal [facility] Glucose [Mass/Vol] 203 mg/dL High 65 - 99 mg/dL [facility] Interpretation and review of laboratory results Abnormal [facility] Glucose [Mass/Vol] 266 mg/dL High 65 - 99 mg/dL [facility] Interpretation and review of laboratory results Abnormal [facility] Glucose [Mass/Vol] 344 mg/dL High 65 - 99 mg/dL [facility] Interpretation and review of laboratory results Abnormal [facility] Glucose [Mass/Vol] 283 mg/dL High 65 - 99 mg/dL [facility] Interpretation and review of laboratory results Abnormal [facility] Glucose [Mass/Vol] 236 mg/dL High 65 - 99 mg/dL [facility] Interpretation and review of laboratory results Abnormal [facility] Glucose [Mass/Vol] 138 mg/dL High 65 - 99 mg/dL [facility] Interpretation and review of laboratory results Abnormal [facility] Glucose [Mass/Vol] 138 mg/dL High 65 - 99 mg/dL [facility] Interpretation and review of laboratory results Abnormal [facility] Glucose [Mass/Vol] 204 mg/dL High 65 - 99 mg/dL [facility] Interpretation and review of laboratory results Abnormal [facility] Glucose [Mass/Vol] 253 mg/dL High 65 - 99 mg/dL [facility] Interpretation and review of laboratory results Abnormal [facility] Glucose [Mass/Vol] 221 mg/dL High 65 - 99 mg/dL [facility] Interpretation and review of laboratory results Abnormal [facility] Glucose [Mass/Vol] 182 mg/dL High 65 - 99 mg/dL [facility] Interpretation and review of laboratory results Abnormal [facility] Glucose [Mass/Vol] 230 mg/dL High 65 - 99 mg/dL [facility] Interpretation and review of laboratory results Abnormal [facility] Glucose [Mass/Vol] 308 mg/dL High 65 - 99 mg/dL [facility] Interpretation and review of laboratory results Abnormal [facility] HbA1c (Bld) [Mass fraction]O rdered By: Lolis Hope on 06-07-2022 Average glucose Estimated from glycated hemoglobin (Bld) [Mass/Vol] 346 mg/dL High 68 - 114 mg/dL [facility] Interpretation and review of laboratory results Abnormal [facility] Normal: 4.0% - 5.6% Increased risk for diabetes: 5.7% - 6.4% Diabetes: >= 6.5% Pediatrics: No established reference range Estimated average glucose: 68-114 mg/dL [facility] Hemoglobin [id number] By: Dalia Hope on 06-07-2022 HbA1c (Bld) [Mass fraction] 13.7 % High 4.0 - 5.6 % [facility] Lipid 1996 panelon 2 Cholesterol [Mass/Vol] 187 mg/dL 100 - 199 mg/dL [facility] Comment on above: National Cholesterol Education Program Guidelines: Cholesterol Desirable: <200 mg/dL Borderline High: 200-239 mg/dL High: greater than or equal to 240 mg/dL Cholesterol in HDL [Mass/Vol] 62 mg/dL 40 - 59 mg/dL [facility] Comment on above: National Cholesterol Education Program Guidelines: HDL Cholesterol Low: <40 mg/dL Near Optimal: 40-59 mg/dL High: greater than or equal to 60 mg/dL Cholesterol in LDL [Mass/Vol] 106 mg/dL 10 - 130 mg/dL [facility] Comment on above: National Cholesterol Education Program Guidelines: LDL Cholesterol Optimal: <100 mg/dL Near Optimal/above Optimal: 100-129 mg/dL Borderline High: 130-159 mg/dL High: 160-189 mg/dL Very High: greater than or equal to 190 mg/dL Cholesterol non HDL [Mass/Vol] 125 mg/dL [facility] Comment on above: National Cholesterol Education Program Guidelines: NON HDL Cholesterol Desirable: <130 mg/dL Borderline High: 130-159 mg/dL High: 160-189 mg/dL Very High: > or = 190 mg/dL Cholesterol.total/Ch olesterol in HDL [Mass ratio] 3.0 {ratio} ratio [facility] Comment on above: Female Cholesterol/H DL Ratio: Average risk: 4.4 1/2 average risk: 3.3 2 x average risk: 7.1 Triglyceride [Mass/Vol] 97 mg/dL 30 - 150 mg/dL [facility] Comment on above: National Cholesterol Education Program Guidelines: Triglyceride Normal: <150 mg/dL Borderline High: 150-199 mg/dL High: 200-499 mg/dL Very High: greater than or equal to 500 mg/dL [facility] MR Brain Without Contraston 06-07-2022 1. No acute ischemia. 2. Left parietal convexity extra-axial dural-based mass likely relating to meningioma detailed above with minimal mass effect on adjacent brain parenchyma without substantial edema. 3. Mild supratentorial white matter change which most commonly relates to sequela of small vessel disease. Workstation ID: [id number] EXAMINATION: MR BRAIN WITHOUT CONTRAST HISTORY: Neuro deficit, acute, stroke suspected Injury/Trauma or Illness?:Illness/Othe r How long have you had these symptoms (acute/chronic)?:Acut e Reason for exam?: 06/06/22 Patient presented with acute onset of slurred speech, right-sided weakness. She did have similar symptoms approximately 1 week ago which resolved within a short period: no hx of cancer: Type of Exam?:Unknown Additional signs and symptoms?:n I63.9 Acute ischemic stroke (HCC) COMPARISON: CT head 06/06/2022 TECHNIQUE: Multiplanar multisequence MR imaging of the brain was performed without contrast. FINDINGS: Calvarium/skull base: No focal marrow replacing lesion suggestive of neoplasm. Orbits: Bilateral [place] ocular lens replacements. Paranasal sinuses: Imaged portions clear. Brain: No restricted diffusion. Minimal scattered T2 FLAIR signal hyperintensities are present involving the supratentorial white matter with sparing of the central pontine white matter likely relating to sequela of small vessel disease.Left parietal convexity extra-axial dural-based mass which measures approximately 1 x 1.8 x 1.1 cm demonstrating intermediate T2 and STIR signal with isointense T1 signal likely relating to a meningioma. There is minimal mass effect on adjacent brain parenchyma without substantial edema. No hemorrhage or hydrocephalus. Grossly normal flow-related signal in the major intracranial arteries and dural sinuses. [employer] [facility] Reyes Tayloria Radha, DO - 06/07/2022 EXAMINATION: MR BRAIN WITHOUT CONTRAST HISTORY: Neuro deficit, acute, stroke suspected Injury/Trauma or Illness?:Illness/Othe r How long have you had these symptoms (acute/chronic)?:Acut e Reason for exam?: 06/06/22 Patient presented with acute onset of slurred speech, right-sided weakness. She did have similar symptoms approximately 1 week ago which resolved within a short period: no hx of cancer: Type of Exam?:Unknown Additional signs and symptoms?:n I63.9 Acute ischemic stroke (HCC) COMPARISON: CT head 06/06/2022 TECHNIQUE: Multiplanar multisequence MR imaging of the brain was performed without contrast. FINDINGS: Calvarium/skull base: No focal marrow replacing lesion suggestive of neoplasm. Orbits: Bilateral [place] ocular lens replacements. Paranasal sinuses: Imaged portions clear. Brain: No restricted diffusion. Minimal scattered T2 FLAIR signal hyperintensities are present involving the supratentorial white matter with sparing of the central pontine white matter likely relating to sequela of small vessel disease.Left parietal convexity extra-axial dural-based mass which measures approximately 1 x 1.8 x 1.1 cm demonstrating intermediate T2 and STIR signal with isointense T1 signal likely relating to a meningioma. There is minimal mass effect on adjacent brain parenchyma without substantial edema. No hemorrhage or hydrocephalus. Grossly normal flow-related signal in the major intracranial arteries and dural sinuses. IMPRESSION: 1. No acute ischemia. 2. Left parietal convexity extra-axial dural-based mass likely relating to meningioma detailed above with minimal mass effect on adjacent brain parenchyma without substantial edema. 3. Mild supratentorial white matter change which most commonly relates to sequela of small vessel disease. Workstation ID: [id number] [facility] Radiology Study observation (narrative) [facility] MR Brain Without ContrastOrd ered By: Triny Taylor on 06-07-2022 [facility] Work Phone: Magnesium Levelon 06-07-2022 Magnesium [Mass/Vol] 2.1 mg/dL 1.6 - 2 .4 mg/dL [facility] Magnesium [Mass/Vol]on 06-07 Interpretation and review of laboratory results Normal [facility] Obtain venous blood gases an d performon 06-07-2022 [facility] Phosphate [Mass/Vol]on 06-07 Interpretation and review of laboratory results Normal [facility] Interpretation and review of laboratory results Abnormal [facility] Phosphoruson 06-07-2022 Phosphate [Mass/Vol] 2.8 mg/dL 2.8 - 4 .1 mg/dL [facility] Phosphate [Mass/Vol] 2.6 mg/dL Low 2.8 - 4 .1 mg/dL [facility] Basic metabolic 2000 panelOr dered By: Joana Reeves on 06-06-2022 Anion gap [Moles/Vol] 13 mmol/L 10 - 20 mmol/L [facility] Calcium [Mass/Vol] 9.3 mg/dL 8.4 - 10. 2 mg/dL [facility] Chloride [Moles/Vol] 101 mmol/L 98 - 10 8 mmol/L [facility] Creatinine [Mass/Vol] 0.72 mg/dL 0.60 - 1.20 mg/dL [facility] GFR/1.73 sq M.predicted CKD-EPI (S/P/Bld) [Vol rate/Area] 90 - PINF [facility] Comment on above: Estimated GFR was ca lculated using the 2020 CKD-EPI creatinine equation. Glucose [Mass/Vol] 458 mg/dL Critically high 65 - 99 mg/d L [facility] HCO3 [Moles/Vol] 28 mmol/L 21 - 32 mmol/L [facility] Interpretation and review of laboratory results Abnormal [facility] Potassium [Moles/Vol] 3.7 mmol/L 3.5 - 5.1 mmol/L [facility] Sodium [Moles/Vol] 138 mmol/L 135 - 145 mmol/L [facility] Urea nitrogen [Mass/Vol] 15 mg/dL 8 - 25 mg/dL [facility] Urea nitrogen/Creatinine [Mass ratio] 20.8 mg/mg High 10.0 - 20.0 [facility] has implemented the eGFR calculation approach that does not have a coefficient for race that conforms to the NKF-ASN Task Force Recommendations. [facility] Basic metabolic 2000 panelOr dered By: Danelle Plascencia on 06-06-2022 Anion gap [Moles/Vol] 13 mmol/L 10 - 20 mmol/L [facility] Calcium [Mass/Vol] 10.2 mg/dL 8.4 - 10. 2 mg/dL [facility] Chloride [Moles/Vol] 98 mmol/L 98 - 10 8 mmol/L [facility] Creatinine [Mass/Vol] 0.84 mg/dL 0.60 - 1.20 mg/dL [facility] GFR/1.73 sq M.predicted CKD-EPI (S/P/Bld) [Vol rate/Area] 74 - PINF [facility] Comment on above: Estimated GFR was ca lculated using the 2020 CKD-EPI creatinine equation. Glucose [Mass/Vol] 660 mg/dL Critically high 65 - 99 mg/d L [facility] HCO3 [Moles/Vol] 27 mmol/L 21 - 32 mmol/L [facility] Interpretation and review of laboratory results Abnormal [facility] Potassium [Moles/Vol] 4.1 mmol/L 3.5 - 5.1 mmol/L [facility] Sodium [Moles/Vol] 134 mmol/L Low 135 - 145 mmol/L [facility] Urea nitrogen [Mass/Vol] 19 mg/dL 8 - 25 mg/dL [facility] Urea nitrogen/Creatinine [Mass ratio] 22.6 mg/mg High 10.0 - 20.0 [facility] has implemented the eGFR calculation approach that does not have a coefficient for race that conforms to the NKF-ASN Task Force Recommendations. [facility] Beta hydroxybutyrate [Moles/ Vol]on 06-06-2022 Interpretation and review of laboratory results Abnormal [facility] Beta-Hydroxybutyrateon 06-06 Beta hydroxybutyrate [Moles/Vol] 1.0 mmol/L High 0.0 - 0.3 mmol/L [facility] CBC Auto Differentialon 05-16 Basophils (Bld) [#/Vol] 0.04 10*3/uL [facility] Basophils/100 WBC (Bld) 0.4 % [facility] Eosinophils (Bld) [#/Vol] 0.03 10*3/uL [facility] Eosinophils/100 WBC (Bld) 0.3 % [facility] Erythrocyte distribution width (RBC) [Entitic vol] 12.7 % 11.6 - 14.8 % [facility] Hematocrit (Bld) [Volume fraction] 45.1 % 36.0 - 46.0 % [facility] Hemoglobin (Bld) [Mass/Vol] 16.1 g/dL High 12.0 - 16.0 g/dL [facility] Immature granulocytes (Bld) [#/Vol] 0.05 10*3/uL [facility] Immature granulocytes/100 WBC (Bld) 0.50 % [facility] Comment on above: The IG parameter is the percentage of metamyelocytes, myelocytes and promyelocytes. An immature granulocyte count (IG) of 1% or more suggests the possibility of infection, an IG count of 3% is very likely related to an infection. Interpretation and review of laboratory results Abnormal [facility] Lymphocytes (Bld) [#/Vol] 1.37 10*3/uL [facility] Lymphocytes/100 WBC (Bld) 13.4 % [facility] MCH (RBC) [Entitic mass] 29.8 pg 26.0 - 34.0 pg [facility] MCHC (RBC) [Mass/Vol] 35.7 g/dL 31.0 - 37.0 g/dL [facility] MCV (RBC) [Entitic vol] 83.5 fL 80.0 - 100.0 fL [facility] Monocytes (Bld) [#/Vol] 0.51 10*3/uL [facility] Monocytes/100 WBC (Bld) 5.0 % [facility] Neutrophils (Bld) [#/Vol] 8.23 10*3/uL High [facility] Neutrophils/100 WBC (Bld) 80.4 % [facility] Nucleated RBC (Bld) [#/Vol] 0.00 10*3/uL [facility] Nucleated RBC/100 WBC (Bld) [Ratio] 0.0 % [facility] Platelet mean volume (Bld) [Entitic vol] 10.2 fL 9.4 - 12.4 fL [facility] Platelets (Bld) [#/Vol] 157 10*3/uL [facility] RBC (Bld) [#/Vol] 5.40 10*6/uL High [facility] ealth WBC (Bld) [#/Vol] 10.23 10*3/uL [facility] CT Head Without Contrast (St ro)on 06-06-2022 1. No acute intracranial abnormality. 2. Atherosclerotic calcification and chronic microvascular ischemia. [employer] Workstation ID: [id number] [employer] EXAMINATION: CT BRAIN WITHOUT CONTRAST HISTORY: Right-sided weakness right-sided facial droop mild right tongue deviation and dysphasia Injury/Trauma or Illness?:Illness/Othe r How long have you had these symptoms (acute/chronic)?:Acut e Reason for exam?:Right-sided weakness right-sided facial droop mild right tongue deviation and dysphasia Type of Exam?:Initial Additional signs and symptoms?: COMPARISON: None. TECHNIQUE: Helical CT images were acquired from the skull base to the vertex without the use of intravenous contrast. Dose reduction techniques were achieved by using automated exposure control and/or adjustment of mA and/or kV according to patient size and/or use of iterative reconstruction technique FINDINGS: BRAIN PARENCHYMA/CSF SPACES: Ventricles appear normal in size for the patient's age. There is no intracranial hemorrhage, mass effect or midline shift. There is diffuse atherosclerotic carotid artery calcification. There is moderate low attenuation in the white matter consistent with chronic microvascular ischemia. PARANASAL SINUSES: Normal. SKULL BASE/CALVARIUM: Normal. EXTRACRANIAL SOFT TISSUES: Normal. [employer] Paras Mancilla MD - 06/06/2022 EXAMINATION: CT BRAIN WITHOUT CONTRAST HISTORY: Right-sided weakness right-sided facial droop mild right tongue deviation and dysphasia Injury/Trauma or Illness?:Illness/Othe r How long have you had these symptoms (acute/chronic)?:Acut e Reason for exam?:Right-sided weakness right-sided facial droop mild right tongue deviation and dysphasia Type of Exam?:Initial Additional signs and symptoms?: COMPARISON: None. TECHNIQUE: Helical CT images were acquired from the skull base to the vertex without the use of intravenous contrast. Dose reduction techniques were achieved by using automated exposure control and/or adjustment of mA and/or kV according to patient size and/or use of iterative reconstruction technique FINDINGS: BRAIN PARENCHYMA/CSF SPACES: Ventricles appear normal in size for the patient's age. There is no intracranial hemorrhage, mass effect or midline shift. There is diffuse atherosclerotic carotid artery calcification. There is moderate low attenuation in the white matter consistent with chronic microvascular ischemia. PARANASAL SINUSES: Normal. SKULL BASE/CALVARIUM: Normal. EXTRACRANIAL SOFT TISSUES: Normal. IMPRESSION: 1. No acute intracranial abnormality. 2. Atherosclerotic calcification and chronic microvascular ischemia. [employer] Workstation ID: [id number] [facility] Radiology Study observation (narrative) [facility] CT Head Without Contrast (St ro)Ordered By: Paras Mancilla on 06-06-2022 [facility] Work Phone: CTA Head vessels and Neck ve ssels W contrast Marj 06-06-2022 No large vessel occlusion. A focal moderate stenosis each in the distal right P2 and left P3. Carotids and vertebral arteries show no significant stenosis or dissection. Workstation ID: [id number] [employer] [facility] EXAMINATION: CT ANGIOGRAM HEAD NECK (STROKE). 06/06/2022 CLINICAL HISTORY: facial droop and difficulty speaking over the last for 5 hours. TECHNIQUE: Following IV administration of Isovue-370, axial CT scans of the head and neck were obtained. Coronal and sagittal MIP images were obtained. Dose reduction techniques were achieved by using: automated exposure control and/or adjustment of mA and /or kV according to patient size and/or use of iterative reconstruction technique. In addition, 3D reconstruction images were generated on a separate independent [employer] workstation. NASCET criteria were used to assess the carotid stenosis. COMPARISON: None. FINDINGS: CTA HEAD: No large vessel occlusion. A focal moderate stenosis each in the distal right P2 and left P3. No aneurysm. CTA NECK: No abnormal mass in the neck. The visualized lungs are clear. Osseous structures are intact. The great vessels of the aortic arch are patent without significant stenosis. Vertebral arteries, common carotids and internal carotids show no significant stenosis or dissection. [employer] Edmond Frye MD - 06/06/2022 EXAMINATION: CT ANGIOGRAM HEAD NECK (STROKE). 06/06/2022 CLINICAL HISTORY: facial droop and difficulty speaking over the last for 5 hours. TECHNIQUE: Following IV administration of Isovue-370, axial CT scans of the head and neck were obtained. Coronal and sagittal MIP images were obtained. Dose reduction techniques were achieved by using: automated exposure control and/or adjustment of mA and /or kV according to patient size and/or use of iterative reconstruction technique. In addition, 3D reconstruction images were generated on a separate independent [employer] workstation. NASCET criteria were used to assess the carotid stenosis. COMPARISON: None. FINDINGS: CTA HEAD: No large vessel occlusion. A focal moderate stenosis each in the distal right P2 and left P3. No aneurysm. CTA NECK: No abnormal mass in the neck. The visualized lungs are clear. Osseous structures are intact. The great vessels of the aortic arch are patent without significant stenosis. Vertebral arteries, common carotids and internal carotids show no significant stenosis or dissection. IMPRESSION: No large vessel occlusion. A focal moderate stenosis each in the distal right P2 and left P3. Carotids and vertebral arteries show no significant stenosis or dissection. Workstation ID: [id number] [facility] Radiology Study observation (narrative) [facility] CTA Head vessels and Neck ve ssels W contrast IVOrdered By: Edmond Barker on 06-06-2022 [facility] Work Phone: ECG 12 Leadon 06-06-2022 Jaime Coats DO 06/06/2022 7:03 PM ECG 12 Lead Date/Time: 06/06/2022 7:02 PM Performed by: Jaime Coats DO Authorized by: Jaime Coats DO Interpreted by ED attending physician Comparison: not compared with previous ECG Previous ECG: no previous ECG available Rhythm: sinus rhythm BPM: 72 Conduction: conduction normal ST Segments: ST segments normal T Waves: T waves normal [facility] Glucose (Bld) [Mass/Vol]on 1 08-07-2021 Glucose [Mass/Vol] 444 mg/dL Critically high 65 - 99 mg/d L [facility] Interpretation and review of laboratory results Abnormal [facility] Critical result acte d upon time of test. Test performed at bedside. [facility] Glucose [Mass/Vol] 448 mg/dL Critically high 65 - 99 mg/d L [facility] Interpretation and review of laboratory results Abnormal [facility] Critical result acte d upon time of test. Test performed at bedside. [facility] INR Coag (PPP) [Relative samm e]on 06-06-2022 Interpretation and review of laboratory results Normal [facility] PT Coag (PPP) [Time] 12.9 s [facility] During the induction phase of oral anticoagulation, the INR may not reflect the anticoagulation status of the patient. Therapeutic ranges for INR's are: Most clinical situations: INR 2.0-3.0 Mechanical Prosthetic Valve: INR 2.5-3.5 Critical: INR >5.0 [facility] Influenza virus A and B RNA and SARS-CoV-2 (COVID-19) N gene panel FINA+probe (Resp)Ordered By: Krystal Floyd on 06-06-2022 FLUAV RNA FINA+probe Ql (Unsp spec) Not detected Not Detected [facility] FLUBV RNA FINA+probe Ql (Unsp spec) Not detected Not Detected [facility] Interpretation and review of laboratory results Normal [facility] SARS-CoV-2 (COVID-19) RNA FINA+probe Ql (Resp) Not detected Not Detected [facility] This test was performed under the [facility]'s Emergency Use Authorization (EUA). Testing was performed using the Sandro Brice SARS-CoV-2 RT-PCR & Influenza A/B Nucleic Acid Test on the Brice Nancy System. This test has not been approved for use in asymptomatic patients and its performance in this patient population has not been evaluated. Negative results do not rule out the presence of SARS-CoV-2, influenza A, and/or influenza B. Fact sheets for the EUA can be found at the following links: For Healthcare Providers: https://www.fda.gov/m edia/462421/download For Patients: https://www.fda.gov/m edia/349425/download [facility] Laboratory - Chemistry and C hemistry - challengeon 06-06-2022 Base excess Calc (BldV) [Moles/Vol] 4.2 mmol/L High -2.0 - 2.0 [facility] Calcium.ionized [Mass/Vol] 4.4 mg/dL Low 4.5 - 5.3 mg/dL [facility] Carboxyhemoglobin (BldA) [Mass fraction] 2.4 High NINF [facility] Comment on above: Reference Ranges: Suburb Non-smokers: <1.5% Smokers: 1.5-5.0% Heavy Smokers: 5.0-9.0% Chloride [Moles/Vol] 100 mmol/L 98 - 10 8 mmol/L [facility] CO2 (BldV) [Partial pressure] 46.1 mm[Hg] [facility] Glucose post fast [Mass/Vol] 372 mg/dL High 65 - 99 mg/dL [facility] HCO3 (Bld) [Moles/Vol] 29.7 mmol/L High 24.0 - 28.0 mmol/L [facility] Lactate [Moles/Vol] 1.2 mmol/L 0.6 - 2. 0 mmol/L [facility] Methemoglobin (BldA) [Mass fraction] 0.7 % 0.0 - 2.0 % [facility] Oxygen (BldV) [Partial pressure] 29 mm[Hg] [facility] Comment on above: Caution: pO2 referen ce ranges for some specimen types are lower than the measuring range of the instrument. Oxyhemoglobin (BldA) [Mass fraction] 54.5 % No established reference range [facility] pH (BldV) 7.42 [pH] 7.32 - 7.42 [facility] Potassium [Moles/Vol] 3.8 mmol/L 3.5 - 5.1 mmol/L [facility] Sodium [Moles/Vol] 137 mmol/L 135 - 145 mmol/L [facility] Laboratory - Hematology and Cell countson 06-06-2022 Hematocrit (BldA) [Volume fraction] 49.1 % High 36.0 - 46.0 % [facility] Hemoglobin (Bld) [Mass/Vol] 16.0 g/dL 12.0 - 16.0 g/dL [facility] Laboratory - Specimen inform ationon 06-06-2022 Specimen source Nom (Unsp spec) Not specified [facility] No Panel Informationon 06-06 Interpretation and review of laboratory results Abnormal [facility] PT/INRon 06-06-2022 INR Coag (PPP) [Relative time] 1.0 {INR} 0.8 - 1.1 [facility] Phosphate [Mass/Vol]on 06-06 Interpretation and review of laboratory results Normal [facility] Phosphoruson 06-06-2022 Phosphate [Mass/Vol] 3.0 mg/dL 2.8 - 4 .1 mg/dL [facility] Troponinon 06-06-2022 Troponin I 8 ng/L NINF - 59 ng/L [facility] Troponin I Interpretation Normal [facility] UrinalysisOrdered By: Piedad Cruz on 06-06-2022 Bacteria Auto Ql (U) Many Abnormal None Seen /hpf [facility] Bilirubin Ql (U) Negative Negative [facility] th Clarity Refractometry automated (U) Clear Clear [facility] Color (U) Yellow Colorless, Yellow [facility] Epithelial cells.squamous Auto (Urine sed) [#/Area] [facility] Glucose Auto test strip (U) [Mass/Vol] >=500 Abnormal Negative mg/dL [facility] Hemoglobin Auto test strip Ql (U) Negative Negative [facility] Interpretation and review of laboratory results Abnormal [facility] Ketones (U) [Mass/Vol] Trace Abnormal Negative mg/dL [facility] Leukocyte esterase Auto test strip Ql (U) Negative Negative [facility] Nitrite Auto test strip Ql (U) Positive Abnormal Negative [facility] pH (U) 6.5 [pH] 5.0 - 7.0 [facility] Protein (U) [Mass/Vol] Negative Negative mg/dL [facility] RBC Auto (Urine sed) [#/Area] 1 [facility] Specific gravity (U) [Rel density] 1.032 High 1.005 - 1.025 [facility] Urobilinogen (U) [Mass/Vol] mg/dL NINF - 2.0 mg/dL [facility] WBC Auto (Urine sed) [#/Area] 9 High [facility] Microscopic examination is performed on all urinalysis samples and only positive findings are reported. The test for blood on the chemical analytic portion of urinalysis may also be positive due to hemoglobinuria and myoglobinuria and if red blood cells are present they are quantified by microscopic examination. [facility] Vital signson 06-06-2022 Oxygen saturation in Venous blood 56.2 % 40.0 - 70.0 % [facility] XR Chest 1 Viewon 06-06-2022 No acute findings given the low lung volumes, portable technique and patient rotation. DPR/alt Workstation ID: [id number] [employer] [facility]IS EXAMINATION: XR CHEST PA/AP 06/06/2022 7:07 PM HISTORY: ORDERING SYSTEM PROVIDED HISTORY: Stroke alert, TECHNOLOGIST PROVIDED HISTORY: Illness/Other Reason for exam: Stroke alert Cancer History: Surgery, RadiationHistory: Encounter Type: Initial Additional signs and symptoms: u ORDERING SYSTEM PROVIDED DIAGNOSIS CODES: COMPARISON: 04/17/2020 FINDINGS: A single AP upright view of the chest with the patient mildly rotated to the left demonstrates the lungs to be clear of consolidations and no effusions or evidence for pulmonary edema is seen. Mild elevation of the left hemidiaphragm. The heart size is within normal limits. There is decreased mineralization of the osseous structures. [facility] Tobias Gonzalez MD - 06/06/2022 EXAMINATION: XR CHEST PA/AP 06/06/2022 7:07 PM HISTORY: ORDERING SYSTEM PROVIDED HISTORY: Stroke alert, TECHNOLOGIST PROVIDED HISTORY: Illness/Other Reason for exam: Stroke alert Cancer History: Surgery, RadiationHistory: Encounter Type: Initial Additional signs and symptoms: u ORDERING SYSTEM PROVIDED DIAGNOSIS CODES: COMPARISON: 04/17/2020 FINDINGS: A single AP upright view of the chest with the patient mildly rotated to the left demonstrates the lungs to be clear of consolidations and no effusions or evidence for pulmonary edema is seen. Mild elevation of the left hemidiaphragm. The heart size is within normal limits. There is decreased mineralization of the osseous structures. IMPRESSION: No acute findings given the low lung volumes, portable technique and patient rotation. [employer] Workstation ID: [id number] [facility] Radiology Study observation (narrative) [facility] XR Chest 1 ViewOrdered By: Burt Gonzalez on 06-06-2022 [facility] Work Phone: CBC WITH AUTO DIFFERENTIALon 04-18-2020 Basophils (Bld) [#/Vol] 0.02 10*3/uL [facility] Basophils/100 WBC (Bld) 0.2 % [facility] Eosinophils (Bld) [#/Vol] 0.03 10*3/uL [facility] Eosinophils/100 WBC (Bld) 0.3 % [facility] Erythrocyte distribution width (RBC) [Entitic vol] 13.5 % 11.6 - 14.8 % [facility] Hematocrit (Bld) [Volume fraction] 43.3 % 36 - 46 % [facility] Hemoglobin (Bld) [Mass/Vol] 14.6 g/dL 12 - 16 g/dL [facility] Immature granulocytes (Bld) [#/Vol] 0.03 10*3/uL [facility] Immature granulocytes/100 WBC (Bld) 0.30 % [facility] Comment on above: The IG parameter is the percentage of metamyelocytes, myelocytes and promyelocytes. An immature granulocyte count (IG) of 1% or more suggests the possibility of infection, an IG count of 3% is very likely related to an infection. Interpretation and review of laboratory results Abnormal [facility] Lymphocytes (Bld) [#/Vol] 2.35 10*3/uL [facility] Lymphocytes/100 WBC (Bld) 26.2 % [facility] MCH (RBC) [Entitic mass] 29.1 pg 26 - 34 pg [facility] MCHC (RBC) [Mass/Vol] 33.7 g/dL 31 - 37 g/dL [facility] MCV (RBC) [Entitic vol] 86.3 fL 80 - 100 fL [facility] Monocytes (Bld) [#/Vol] 0.56 10*3/uL [facility] Monocytes/100 WBC (Bld) 6.2 % [facility] Neutrophils (Bld) [#/Vol] 5.99 10*3/uL [facility] Neutrophils/100 WBC (Bld) 66.8 % [facility] Nucleated RBC (Bld) [#/Vol] 0.00 10*3/uL [facility] Nucleated RBC/100 WBC (Bld) [Ratio] 0.0 % [facility] Platelet mean volume (Bld) [Entitic vol] 10.1 fL 9.4 - 12.4 fL [facility] Platelets (Bld) [#/Vol] 148 10*3/uL Low [facility] RBC (Bld) [#/Vol] 5.02 10*6/uL [facility] WBC (Bld) [#/Vol] 8.98 10*3/uL [facility] ECHOCARDIOGRAM COMPLETEon Aortic valve area 2.90523 cm [facility] AV mean gradient 4 mmHg [facility] EF 56.1119 % [facility] Interface, Rad In [facility] - 04/18/2020 2:08 PM EST Patient Info Name: HILARIA LYONS Age: 70 years : 1950 Gender: Female Ht: 155 cm Wt: 82 kg BSA: 1.91 m2 HR: 94 bpm BP: 168 / 96 mmHg Heart Rhythm: Tachycardia, Sinus Rhythm Technical Quality: Fair Exam Date: 04/18/2020 9:42 AM Patient Status: Inpatient Cement Paver: Laila Márquez RCDS Exam Type: ECHOCARDIOGRAM COMPLETE Study Info Indications I50.9 - Heart failure, unspecified Referring Physician: KADEEM Hernandez KHALDOON, ; [id number] BMI: 34.01 kg/m2 Summary 1. Moderate left ventricular concentric hypertrophy. 2. Left ventricular systolic function is normal with an ejection fraction by Biplane Method of Discs of 56 %. 3. The left ventricular diastolic function is grade I diastolic dysfunction, consistent with low or normal atrial pressures. 4. Normal RV size and function. 5. No hemodynamically significant valvular disease. History/Risk Factors Hypertension: Yes Diabetes Mellitus: Yes Tobacco Use: Never Family History: Diabetes Mellitus, Coronary Artery Disease Procedure(s): Complete two-dimensional, color flow and Doppler transthoracic echocardiogram is performed. Left Ventricle Left ventricular chamber dimension is normal. Left ventricular systolic function is normal with an ejection fraction by Biplane Method of Discs of 56 %. Moderate left ventricular concentric hypertrophy. Left ventricular segmental wall motion is normal. The left ventricular diastolic function is grade I diastolic dysfunction, consistent with low or normal atrial pressures. Right Ventricle Right ventricular chamber dimension is normal. Right ventricular systolic function is normal. Left Atria Left atrial chamber dimension is normal. Right Atria Right atrial chamber dimension is normal. Aortic Valve The aortic valve is trileaflet. Aortic annular calcification is present. There is no aortic valve stenosis with a peak velocity of 1.5 m/s, mean gradient of 4 mmHg, and aortic valve area of 2.02 cm2. There is no aortic valve regurgitation. Pulmonic Valve The pulmonic valve is normal. There is no pulmonic valve stenosis. There is no pulmonic regurgitation. Mitral Valve The mitral valve has thickened leaflets and calcified annulus. There is no mitral valve stenosis. There is trace mitral valve regurgitation. Tricuspid Valve The tricuspid valve leaflets are normal. There is no significant tricuspid valve stenosis. There is no tricuspid valve regurgitation. Pericardium/Pleural The pericardium appears normal. There is no pericardial effusion. Inferior Vena Cava Normal inferior vena cava with >50% collapse upon inspiration consistent with normal right atrial pressure. Aorta The aortic measurements are indexed to age and body surface area. The aortic root is normal measuring 3.10 cm with an index of 1.62 cm/m2. Left Ventricular Outflow Tract ------- Name Value Normal ------- LVOT 2D ------- LVOT Diameter 1.90 cm LVOT Doppler ------- LVOT Peak Velocity 0.98 m/s LVOT Mean Gradient 2 mmHg LVOT VTI 19.00 cm LVOT VTI/AV VTI Ratio 0.71 LVOT Stroke Volume 53.84 ml Pulmonic Valve ------- Name Value Normal ------- PV Doppler ------- PV Peak Velocity 0.77 m/s PV Mean Gradient 1 mmHg PV VTI 16.60 cm Mitral Valve ------- Name Value Normal ------- MV Doppler ------- MV Peak Velocity 1.10 m/s MV Mean Gradient 2 mmHg MV VTI 18.00 cm MV Decel Caroline 383.00 cm/s2 MV PHT 46 ms MV Area (PHT) 4.80 cm2 4.00-5.00 MV Area (Cont Eq VTI) 2.99 cm2 MV Area Index (Cont Eq VTI) 1.56 cm2/m2 MV Diastolic Function ------- MV E Peak Velocity 0.86 m/s MV A Peak Velocity 1.05 m/s MV E/A 0.82 MV Decel Time 158 ms MV Annular TDI ------- MV Septal e' Velocity 5.98 cm/s >=8.00 MV E/e' (Septal) 14.43 <=8.00 MV Lateral e' Velocity 7.07 cm/s >=10.00 MV E/e' (Lateral) 12.21 <=8.00 MV e' Average 6.53 MV E/e' (Average) 13.32 Tricuspid Valve ------- Name Value Normal ------- Estimated PAP/RSVP ------- RA Pressure 3 mmHg <=5 Aorta ------- Name Value Normal ------- Ascending Aorta ------- Ao Root Diameter (2D) 3.10 cm 2.70-3.30 Ao Root Diam Index (2D) 1.62 cm/m2 1.60-2.00 Venous ------- Name Value Normal ------- IVC/SVC ------- IVC Diameter (Exp 2D) 2.08 cm <=2.10 Aortic Valve ------- Name Value Normal ------- AV Doppler ------- AV Peak Velocity 1.5 m/s AV Mean Gradient 4 mmHg AV VTI 26.70 cm AV Area (Cont Eq VTI) 2.02 cm2 AV Area Index (Cont Eq VTI) 1 cm2/m2 AV Area (Cont Eq Farhad) 1.86 cm2 AV Area Index (Cont Eq Farhad) 1 cm2/m2 LVOT Vmax/AV Vmax 0.66 LVOT VTI/AV VTI Ratio 0.71 AV Regurgitation 2D ------- LVOT Area 2.83 cm2 Ventricles ------- Name Value Normal ------- LV Dimensions 2D/MM ------- IVS Diastolic Thickness (2D) 1.39 cm 0.60-0.90 LVID Diastole (2D) 4.08 cm 3.80-5.20 LVIW Diastolic Thickness (2D) 1.42 cm 0.60-0.90 LVID Systole (2D) 2.84 cm 2.20-3.50 LVOT Diameter 1.90 cm LV Mass (2D Cubed) 216 g 67-162 LV Mass Index (2D Cubed) 113 g/m2 43-95 Relative Wall Thickness (2D) 0.70 <=0.42 LV Fractional Shortening/Ejection Fraction 2D/MM ------- LV Fractional Shortening (2D) 30 % 27-45 LV EF (2D Teicholz) 58 % 54-74 LV Diastolic Volume (4C MOD) 81 ml LV Systolic Volume (4C MOD) 34 ml LV EF (4C MOD) 57 % LV Diastolic Volume (2C MOD) 69 ml LV Systolic Volume (2C MOD) 30 ml LV EF (2C MOD) 56 % LV Diastolic Volume (BP MOD) 76.60 ml 46.00-106.00 LV Diastolic Volume Index (BP MOD) 40.07 ml/m2 29.00-61.00 LV Systolic Volume (BP MOD) 33.60 ml 14.00-42.00 LV Systolic Volume Index (BP MOD) 17.58 ml/m2 8.00-24.00 LV EF (BP MOD) 56 % 55-70 LV Diastolic Length (4C) 7.41 cm LV Systolic Length (4C) 6.04 cm LV End Diastolic Volume (BP A-L) 79 ml LV End Systolic Volume (BP A-L) 33 ml LV EF (BP A-L) 58 % LV Stroke Volume (4C MOD) 46.30 ml LV SI (4C MOD) 0.03 l/m2 RV Dimensions 2D/MM ------- RV Basal Diastolic Dimension 2.52 cm 2.50-4.10 RV Mid-Cavity Diastolic Dimension 2.09 cm 1.90-3.50 TAPSE 2.19 cm >=1.70 RV Systolic Function ------- RV s' Velocity 0.13 m/s 0.10-0.19 Atria ------- Name Value Normal ------- LA Dimensions ------- LA Length (4C) 5.73 cm LA Area (2C) 18.70 cm2 LA Length (2C) 5.15 cm LA Volume (4C MOD) 50.90 ml LA Volume (2C MOD) 53.60 ml LA Volume (2C A-L) 57.72 ml LA Volume (BP MOD) 55.00 ml LA Volume Index (BP MOD) 28.77 ml/m2 16.00-34.00 RA Dimensions ------- RA Systolic Major Paragon Length (4C) 4.63 cm <=5.30 RA Area (4C) 14.20 cm2 <=18.00 RA Area (4C) Index 7.43 cm2/m2 RA ESV (4C MOD) 34.50 ml 15.00-27.00 RA ESV Index (4C MOD) 18.05 ml/m2 <=27.00 Report Signatures Finalized by Yuly Wharton MD on 04/18/2020 02:08 PM [facility] Patient Info Name: HILARIA LYONS Age: 70 years : 1950 Gender: Female Ht: 155 cm Wt: 82 kg BSA: 1.91 m2 HR: 94 bpm BP: 168 / 96 mmHg Heart Rhythm: Tachycardia, Sinus Rhythm Technical Quality: Fair Exam Date: 04/18/2020 9:42 AM Patient Status: Inpatient Cement Paver: Laila Márquez RCDS Exam Type: ECHOCARDIOGRAM COMPLETE Study Info Indications I50.9 - Heart failure, unspecified Referring Physician: [id number] Crowley KHALDOON, ; [id number] BMI: 34.01 kg/m2 Summary 1. Moderate left ventricular concentric hypertrophy. 2. Left ventricular systolic function is normal with an ejection fraction by Biplane Method of Discs of 56 %. 3. The left ventricular diastolic function is grade I diastolic dysfunction, consistent with low or normal atrial pressures. 4. Normal RV size and function. 5. No hemodynamically significant valvular disease. History/Risk Factors Hypertension: Yes Diabetes Mellitus: Yes Tobacco Use: Never Family History: Diabetes Mellitus, Coronary Artery Disease Procedure(s): Complete two-dimensional, color flow and Doppler transthoracic echocardiogram is performed. Left Ventricle Left ventricular chamber dimension is normal. Left ventricular systolic function is normal with an ejection fraction by Biplane Method of Discs of 56 %. Moderate left ventricular concentric hypertrophy. Left ventricular segmental wall motion is normal. The left ventricular diastolic function is grade I diastolic dysfunction, consistent with low or normal atrial pressures. Right Ventricle Right ventricular chamber dimension is normal. Right ventricular systolic function is normal. Left Atria Left atrial chamber dimension is normal. Right Atria Right atrial chamber dimension is normal. Aortic Valve The aortic valve is trileaflet. Aortic annular calcification is present. There is no aortic valve stenosis with a peak velocity of 1.5 m/s, mean gradient of 4 mmHg, and aortic valve area of 2.02 cm2. There is no aortic valve regurgitation. Pulmonic Valve The pulmonic valve is normal. There is no pulmonic valve stenosis. There is no pulmonic regurgitation. Mitral Valve The mitral valve has thickened leaflets and calcified annulus. There is no mitral valve stenosis. There is trace mitral valve regurgitation. Tricuspid Valve The tricuspid valve leaflets are normal. There is no significant tricuspid valve stenosis. There is no tricuspid valve regurgitation. Pericardium/Pleural The pericardium appears normal. There is no pericardial effusion. Inferior Vena Cava Normal inferior vena cava with >50% collapse upon inspiration consistent with normal right atrial pressure. Aorta The aortic measurements are indexed to age and body surface area. The aortic root is normal measuring 3.10 cm with an index of 1.62 cm/m2. Left Ventricular Outflow Tract ------- Name Value Normal ------- LVOT 2D ------- LVOT Diameter 1.90 cm LVOT Doppler ------- LVOT Peak Velocity 0.98 m/s LVOT Mean Gradient 2 mmHg LVOT VTI 19.00 cm LVOT VTI/AV VTI Ratio 0.71 LVOT Stroke Volume 53.84 ml Pulmonic Valve ------- Name Value Normal ------- PV Doppler ------- PV Peak Velocity 0.77 m/s PV Mean Gradient 1 mmHg PV VTI 16.60 cm Mitral Valve ------- Name Value Normal ------- MV Doppler ------- MV Peak Velocity 1.10 m/s MV Mean Gradient 2 mmHg MV VTI 18.00 cm MV Decel Caroline 383.00 cm/s2 MV PHT 46 ms MV Area (PHT) 4.80 cm2 4.00-5.00 MV Area (Cont Eq VTI) 2.99 cm2 MV Area Index (Cont Eq VTI) 1.56 cm2/m2 MV Diastolic Function ------- MV E Peak Velocity 0.86 m/s MV A Peak Velocity 1.05 m/s MV E/A 0.82 MV Decel Time 158 ms MV Annular TDI ------- MV Septal e' Velocity 5.98 cm/s >=8.00 MV E/e' (Septal) 14.43 <=8.00 MV Lateral e' Velocity 7.07 cm/s >=10.00 MV E/e' (Lateral) 12.21 <=8.00 MV e' Average 6.53 MV E/e' (Average) 13.32 Tricuspid Valve ------- Name Value Normal ------- Estimated PAP/RSVP ------- RA Pressure 3 mmHg <=5 Aorta ------- Name Value Normal ------- Ascending Aorta ------- Ao Root Diameter (2D) 3.10 cm 2.70-3.30 Ao Root Diam Index (2D) 1.62 cm/m2 1.60-2.00 Venous ------- Name Value Normal ------- IVC/SVC ------- IVC Diameter (Exp 2D) 2.08 cm <=2.10 Aortic Valve ------- Name Value Normal ------- AV Doppler ------- AV Peak Velocity 1.5 m/s AV Mean Gradient 4 mmHg AV VTI 26.70 cm AV Area (Cont Eq VTI) 2.02 cm2 AV Area Index (Cont Eq VTI) 1 cm2/m2 AV Area (Cont Eq Farhad) 1.86 cm2 AV Area Index (Cont Eq Farhad) 1 cm2/m2 LVOT Vmax/AV Vmax 0.66 LVOT VTI/AV VTI Ratio 0.71 AV Regurgitation 2D ------- LVOT Area 2.83 cm2 Ventricles ------- Name Value Normal ------- LV Dimensions 2D/MM ------- IVS Diastolic Thickness (2D) 1.39 cm 0.60-0.90 LVID Diastole (2D) 4.08 cm 3.80-5.20 LVIW Diastolic Thickness (2D) 1.42 cm 0.60-0.90 LVID Systole (2D) 2.84 cm 2.20-3.50 LVOT Diameter 1.90 cm LV Mass (2D Cubed) 216 g 67-162 LV Mass Index (2D Cubed) 113 g/m2 43-95 Relative Wall Thickness (2D) 0.70 <=0.42 LV Fractional Shortening/Ejection Fraction 2D/MM ------- LV Fractional Shortening (2D) 30 % 27-45 LV EF (2D Teichalekz) 58 % 54-74 LV Diastolic Volume (4C MOD) 81 ml LV Systolic Volume (4C MOD) 34 ml LV EF (4C MOD) 57 % LV Diastolic Volume (2C MOD) 69 ml LV Systolic Volume (2C MOD) 30 ml LV EF (2C MOD) 56 % LV Diastolic Volume (BP MOD) 76.60 ml 46.00-106.00 LV Diastolic Volume Index (BP MOD) 40.07 ml/m2 29.00-61.00 LV Systolic Volume (BP MOD) 33.60 ml 14.00-42.00 LV Systolic Volume Index (BP MOD) 17.58 ml/m2 8.00-24.00 LV EF (BP MOD) 56 % 55-70 LV Diastolic Length (4C) 7.41 cm LV Systolic Length (4C) 6.04 cm LV End Diastolic Volume (BP A-L) 79 ml LV End Systolic Volume (BP A-L) 33 ml LV EF (BP A-L) 58 % LV Stroke Volume (4C MOD) 46.30 ml LV SI (4C MOD) 0.03 l/m2 RV Dimensions 2D/MM ------- RV Basal Diastolic Dimension 2.52 cm 2.50-4.10 RV Mid-Cavity Diastolic Dimension 2.09 cm 1.90-3.50 TAPSE 2.19 cm >=1.70 RV Systolic Function ------- RV s' Velocity 0.13 m/s 0.10-0.19 Atria ------- Name Value Normal ------- LA Dimensions ------- LA Length (4C) 5.73 cm LA Area (2C) 18.70 cm2 LA Length (2C) 5.15 cm LA Volume (4C MOD) 50.90 ml LA Volume (2C MOD) 53.60 ml LA Volume (2C A-L) 57.72 ml LA Volume (BP MOD) 55.00 ml LA Volume Index (BP MOD) 28.77 ml/m2 16.00-34.00 RA Dimensions ------- RA Systolic Major Paragon Length (4C) 4.63 cm <=5.30 RA Area (4C) 14.20 cm2 <=18.00 RA Area (4C) Index 7.43 cm2/m2 RA ESV (4C MOD) 34.50 ml 15.00-27.00 RA ESV Index (4C MOD) 18.05 ml/m2 <=27.00 Report Signatures Finalized by Yuly Wharton MD on 04/18/2020 02:08 PM [facility] EKGon 04-18-2020 Ordered by an unspecified provider. [facility] Hemoglobin A1con 04-18-2020 Average glucose Estimated from glycated hemoglobin mass conc (Bld) 272 mg/dL High 68 - 114 mg/dL [facility] HbA1c (Bld) [Mass fraction] 11.1 % High 4 - 5.6 % [facility] Interpretation and review of laboratory results Abnormal [facility] Normal: 4.0% - 5.6% Increased risk for diabetes: 5.7% - 6.4% Diabetes: >= 6.5% Pediatrics: No established reference range Estimated average glucose: 68-114 mg/dL [facility] Magnesiumon 04-18-2020 Magnesium [Mass/Vol] 1.8 mg/dL 1.6 - 2 .4 mg/dL [facility] Otheron 04-18-2020 Interpretation and review of laboratory results Normal [facility] POC Glucoseon 04-18-2020 Glucose [Mass/Vol] 247 mg/dL High 65 - 99 mg/dL [facility] Interpretation and review of laboratory results Abnormal [facility] Glucose [Mass/Vol] 243 mg/dL High 65 - 99 mg/dL [facility] Interpretation and review of laboratory results Abnormal [facility] Renal Function Panelon 04-18 Albumin [Mass/Vol] 2.7 g/dL Low 3.2 - 5.2 g/dL [facility] Anion gap [Moles/Vol] 11 mmol/L 10 - 20 mmol/L [facility] Calcium [Mass/Vol] 8.1 mg/dL Low 8.4 - 10. 2 mg/dL [facility] Chloride [Moles/Vol] 108 mmol/L 98 - 10 8 mmol/L [facility] Creatinine [Mass/Vol] 0.46 mg/dL Low 0.60 - 1.20 [facility] GFR/1.73 sq M predicted among non-blacks MDRD (S/P/Bld) [Vol rate/Area] The eGFR should be used for monitoring renal function only and not for medication dosing. [facility] GFR/1.73 sq M.predicted CKD-EPI (S/P/Bld) [Vol rate/Area] 102 >=60 mL/min/1.73 m2 [facility] Glucose [Mass/Vol] 270 mg/dL High 65 - 99 mg/dL [facility] HCO3 [Moles/Vol] 25 mmol/L 21 - 32 mmol/L [facility] Interpretation and review of laboratory results Abnormal [facility] Phosphate [Mass/Vol] 2.4 mg/dL Low 2.8 - 4 .1 mg/dL [facility] Potassium [Moles/Vol] 3.6 mmol/L 3.5 - 5.1 mmol/L [facility] Sodium [Moles/Vol] 140 mmol/L 135 - 145 mmol/L [facility] Urea nitrogen [Mass/Vol] 12 mg/dL 8 - 25 mg/dL [facility] Urea nitrogen/Creatinine [Mass ratio] 26.1 mg/mg High [facility] TROPONIN 04-18-2020 Interpretation and review of laboratory results Abnormal [facility] Troponin I.cardiac [Mass/Vol] ng/mL Critically high < -/+ 8 change ng/L [facility] Troponin I.cardiac [Mass/Vol] 29 ng/L <=45 [facility] Troponin I.cardiac [Mass/Vol] Possible acute cardiac injury. Consider additional troponin testing and correlate with clinical factors. [facility] TSHon 04-18-2020 TSH Qn 0.99 m[IU]/L [facility] CBC WITH AUTO DIFFERENTIALon 04-17-2020 Basophils (Bld) [#/Vol] 0.04 10*3/uL [facility] Basophils/100 WBC (Bld) 0.3 % [facility] Eosinophils (Bld) [#/Vol] 0.01 10*3/uL [facility] Eosinophils/100 WBC (Bld) 0.1 % [facility] Erythrocyte distribution width (RBC) [Entitic vol] 13.6 % 11.6 - 14.8 % [facility] Hematocrit (Bld) [Volume fraction] 51.3 % High 36 - 46 % [facility] Hemoglobin (Bld) [Mass/Vol] 17.3 g/dL High 12 - 16 g/dL [facility] Immature granulocytes (Bld) [#/Vol] 0.06 10*3/uL [facility] Immature granulocytes/100 WBC (Bld) 0.40 % [facility] Comment on above: The IG parameter is the percentage of metamyelocytes, myelocytes and promyelocytes. An immature granulocyte count (IG) of 1% or more suggests the possibility of infection, an IG count of 3% is very likely related to an infection. Interpretation and review of laboratory results Abnormal [facility] Lymphocytes (Bld) [#/Vol] 1.63 10*3/uL [facility] Lymphocytes/100 WBC (Bld) 11.7 % [facility] MCH (RBC) [Entitic mass] 28.8 pg 26 - 34 pg [facility] MCHC (RBC) [Mass/Vol] 33.7 g/dL 31 - 37 g/dL [facility] MCV (RBC) [Entitic vol] 85.4 fL 80 - 100 fL [facility] Monocytes (Bld) [#/Vol] 0.73 10*3/uL [facility] Monocytes/100 WBC (Bld) 5.2 % [facility] Neutrophils (Bld) [#/Vol] 11.50 10*3/uL High [facility] Neutrophils/100 WBC (Bld) 82.3 % [facility] Nucleated RBC (Bld) [#/Vol] 0.00 10*3/uL [facility] Nucleated RBC/100 WBC (Bld) [Ratio] 0.0 % [facility] Platelet mean volume (Bld) [Entitic vol] 9.9 fL 9.4 - 12.4 fL [facility] Platelets (Bld) [#/Vol] 175 10*3/uL [facility] RBC (Bld) [#/Vol] 6.01 10*6/uL High [facility] ealth WBC (Bld) [#/Vol] 13.97 10*3/uL [facility] COVID-19, Molecularon 2019 Interpretation and review of laboratory results Normal [facility] SARS-CoV-2 Not Detected Not Detected [facility] Comment on above: This test was perfor med under the FDA's Emergency Use Authorization (EUA). Testing was performed using the [employer] ID NOW COVID-19 assay on the ID NOW platform. This test has not been approved for use in asymptomatic patients and its performance in this patient population has not been evaluated. Negative results do not rule out the presence of SARS-CoV-2/COVID-19. Fact sheets for the EUA can be found at the following links: For Healthcare Providers: https://www.fda.gov/media/665097/download For Patients: https://www.fda.gov/media/671635/download Chem 704-17-2020 Anion gap [Moles/Vol] 11 mmol/L 10 - 20 mmol/L [facility] Chloride [Moles/Vol] 102 mmol/L 98 - 10 8 mmol/L [facility] Creatinine [Mass/Vol] 0.65 mg/dL 0.60 - 1.20 [facility] GFR/1.73 sq M predicted among non-blacks MDRD (S/P/Bld) [Vol rate/Area] The eGFR should be used for monitoring renal function only and not for medication dosing. [facility] GFR/1.73 sq M.predicted CKD-EPI (S/P/Bld) [Vol rate/Area] 91 >=60 mL/min/1.73 m2 [facility] Glucose [Mass/Vol] 247 mg/dL High 65 - 99 mg/dL [facility] HCO3 [Moles/Vol] 27 mmol/L 21 - 32 mmol/L [facility] Interpretation and review of laboratory results Abnormal [facility] Potassium [Moles/Vol] 3.0 mmol/L Low 3.5 - 5.1 mmol/L [facility] Sodium [Moles/Vol] 137 mmol/L 135 - 145 mmol/L [facility] Urea nitrogen [Mass/Vol] 16 mg/dL 8 - 25 mg/dL [facility] Urea nitrogen/Creatinine [Mass ratio] 24.6 mg/mg High [facility] D-DIMER, QUANTITATIVEon Fibrin D-dimer FEU (PPP) [Mass/Vol] 0.49 0.27 - 0.49 mcg/mL FEU [facility] Interpretation and review of laboratory results Normal [facility] A D-dimer concentration of <0.5 micrograms per milliliter FEU is considered a low probability for pulmonary embolus (PE) and deep venous thrombosis (DVT). Results of this test should always be interpreted in conjunction with the patient's medical history,clinical presentation, and other findings. Clinical diagnosis should not be based on the results of the D-dimer alone. [facility] ECG 12-LEADon 04-17-2020 Atrial Rate 116 BPM [facility] P Paragon 67 degrees [facility] P-R Interval 148 ms [facility] Q-T Interval 322 ms [facility] QRS Duration 92 ms [facility] QTC Calculation (Bezet) 447 ms [facility] R Paragon -3 degrees [facility] T Paragon 52 degrees [facility] Ventricular Rate 116 BPM [facility] Sinus tachycardia Otherwise normal ECG ECG Cart Interpretation see physician note for interpretation. Confirmed by Dorie Redman ([id number]) on 04/17/2020 10:59:06 PM [facility] Atrial Rate 149 BPM [facility] P Paragon 39 degrees [facility] P-R Interval 132 ms [facility] Q-T Interval 302 ms [facility] QRS Duration 80 ms [facility] QTC Calculation (Bezet) 475 ms [facility] R Paragon -2 degrees [facility] T Paragon 73 degrees [facility] Ventricular Rate 149 BPM [facility] Sinus tachycardia with Premature atrial complexes Septal infarct , age undetermined Abnormal ECG ECG Cart Interpretation see physician note for interpretation. Confirmed by Dorie Redman ([id number]) on 04/17/2020 4:45:56 PM [facility] Magnesium Levelon 04-17-2020 Interpretation and review of laboratory results Normal [facility] Magnesium [Mass/Vol] 1.8 mg/dL 1.6 - 2 .4 mg/dL [facility] Magnesium [Mass/Vol] 2.0 mg/dL 1.6 - 2 .4 mg/dL [facility] Otheron 04-17-2020 Extra Tube Hold for add-ons. [facility] Comment on above: Auto resulted. Interpretation and review of laboratory results Normal [facility] POC Glucoseon 04-17-2020 Glucose [Mass/Vol] 219 mg/dL High 65 - 99 mg[facility] Interpretation and review of laboratory results Abnormal [facility] PT/INRon 04-17-2020 INR Coag (PPP) [Relative time] 1.0 {INR} [facility] Interpretation and review of laboratory results Normal [facility] PT Coag (PPP) [Time] 12.8 s [facility] During the induction phase of oral anticoagulation, the INR may not reflect the anticoagulation status of the patient. Therapeutic ranges for INR's are: Most clinical situations: INR 2.0-3.0 Mechanical Prosthetic Valve: INR 2.5-3.5 Critical: INR >5.0 [facility] TROPONINon 04-17-2020 Interpretation and review of laboratory results Abnormal [facility] Troponin I.cardiac [Mass/Vol] 33 ng/L <=45 [facility] Troponin I.cardiac [Mass/Vol] ng/mL Critically high < -/+ 8 change ng/L [facility] Troponin I.cardiac [Mass/Vol] Possible acute cardiac injury. Consider additional troponin testing and correlate with clinical factors. [facility] Interpretation and review of laboratory results Abnormal [facility] Troponin I.cardiac [Mass/Vol] 25 ng/L <=45 [facility] Troponin I.cardiac [Mass/Vol] Possible acute cardiac injury. Consider additional troponin testing and correlate with clinical factors. [facility] Troponin I.cardiac [Mass/Vol] ng/mL Critically high < -/+ 8 change ng/L [facility] Troponin I.cardiac [Mass/Vol] Normal [facility] Troponin I.cardiac [Mass/Vol] ng/mL <=45 ng/L [facility] TSH with Reflex Free T4on TSH Qn 0.80 m[IU]/L [facility] XR Chest 1 Viewon 04-17-2020 Interface, Rad In [employer] Speechq - 04/17/2020 4:54 PM EST EXAMINATION: XR CHEST PA/AP HISTORY: ORDERING SYSTEM PROVIDED HISTORY: tachycardia, TECHNOLOGIST PROVIDED HISTORY: Illness/Other Reason for exam: tachycardic, HTN Cancer History: Surgery, RadiationHistory: Encounter Type: Initial Additional signs and symptoms: ORDERING SYSTEM PROVIDED DIAGNOSIS CODES: COMPARISON: 03/12/2016 TECHNIQUE: AP upright view of the chest. FINDINGS: Bandlike densities in the right lung base may be due to scarring or atelectasis. The cardiomediastinal configuration is within normal limits. No acute bony abnormalities. IMPRESSION: No acute cardiopulmonary abnormalities. Workstation ID: [id number] [facility] [facility] No acute cardiopulmonary abnormalities. Workstation ID: [id number] [facility] EXAMINATION: XR CHES T PA/AP HISTORY: ORDERING SYSTEM PROVIDED HISTORY: tachycardia, TECHNOLOGIST PROVIDED HISTORY: Illness/Other Reason for exam: tachycardic, HTN Cancer History: Surgery, RadiationHistory: Encounter Type: Initial Additional signs and symptoms: ORDERING SYSTEM PROVIDED DIAGNOSIS CODES: COMPARISON: 03/12/2016 TECHNIQUE: AP upright view of the chest. FINDINGS: Bandlike densities in the right lung base may be due to scarring or atelectasis. The cardiomediastinal configuration is within normal limits. No acute bony abnormalities. [facility] Basic Metabolic Panelon 07-2 Calcium 9.0 mg/dL Normal 8.4-10.2 [facility] Comment on above: Performed By: #### C HEM8, HBA1C ####Unless otherwise noted, all testing performed by [address] [id number]: [id number] Director: Adonay Hanks M.D. Chloride 101 mmol/L Normal 98-108 [facility] Comment on above: Performed By: #### C HEM8, HBA1C ####Unless otherwise noted, all testing performed by [address] [phone]: [id number] Director: Adonay Hanks M.D. CO2 28 mmol/L Normal 21-32 [facility] Comment on above: Performed By: #### C HEM8, HBA1C ####Unless otherwise noted, all testing performed by [address] [id number]: [id number] Director: Adonay Hanks M.D. Creatinine 0.58 mg/dL Low 0.60-1.20 [facility] Comment on above: Performed By: #### C HEM8, HBA1C ####Unless otherwise noted, all testing performed by [address] [id number]: [id number] Director: Adonay Hanks M.D. eGFR (black) mL/min/{1.73_m2} Normal [facility] Comment on above: GFR Calc Result Comment: Afri can Japanese GFR Calc Performed By: #### C HEM8, HBA1C ####Unless otherwise noted, all testing performed by [address] [id number]: [id number] Director: Adonay Hanks M.D. eGFR (non-black) mL/min/{1.73_m2} Normal [facility] Comment on above: Non- GFR Calc eGFR is an estimated Glomerular Filtration Rate based on the value of the patient's serum creatinine. In outpatients, eGFR should be used as a helpful tool in screening for CKD. In inpatients or patients with acute renal failure, eGFR represents the GFR at the moment of the draw and should be used with caution. Result Comment: Non- GFR CalceGFR is an estimated Glomerular Filtration Rate based on the valueof the patient's serum creatinine. In outpatients, eGFR should be usedas a helpful tool in screening for CKD. In inpatients or patients withacute renal failure, eGFR represents the GFR at the moment of the drawand should be used with caution. Performed By: #### C HEM8, HBA1C ####Unless otherwise noted, all testing performed by [address] [id number]: [id number] Director: Adonay Hanks M.D. Glucose mass conc 320 mg/dL High 70-99 [facility] Comment on above: This test result bong ht be falsely depressed or falsely elevated on samples drawn from patients taking Sulfasalazine and Sulfapyridine. Venipuncture should occur prior to taking either of these drugs. Result Comment: This test result might be falsely depressed or falsely elevated onsamples drawn from patients taking Sulfasalazine and Sulfapyridine.Venipuncture should occur prior to taking either of these drugs. Performed By: #### C HEM8, HBA1C ####Unless otherwise noted, all testing performed by [place] [id number]: [id number] Director: Adonay Hanks M.D. Interpretation and review of laboratory results Abnormal Invalid Interpretation Code [facility] Potassium molar conc 4.0 mmol/L Normal 3.5-5.1 [facility] Comment on above: Performed By: #### C HEM8, HBA1C ####Unless otherwise noted, all testing performed by [place] [phone]: [id number] Director: Adonay Hanks M.D. Sodium 138 mmol/L Normal 135-145 [facility] Comment on above: Performed By: #### C HEM8, HBA1C ####Unless otherwise noted, all testing performed by [place] [id number]: [id number] Director: Adonay Hanks M.D. Urea nitrogen 15 mg/dL Normal 8-25 [facility] Comment on above: Performed By: #### C HEM8, HBA1C ####Unless otherwise noted, all testing performed by [place] [phone]: [id number] Director: Adonay Hanks M.D. Hemoglobin A1con 01-01-2018 Hemoglobin A1c/Hemoglobin.total mass fraction (Bld) 11.2 % High 4.1-6.5 [facility] Comment on above: Performed By: #### C HEM8, HBA1C ####Unless otherwise noted, all testing performed by [place] [id number] [address] [place], [place] [phone]: [id number] Director: Adonay Hanks M.D. Vital Signs Date Time Vital Sign Value Performing Clinician Facility 05-16-2024 14:12-0500 Diastolic blood pressure 100 mm[Hg] Christiano Fletcher MD Work Phone: [facility] 05-16-2024 14:12-0500 Systolic blood pressure 188 mm[Hg] Christiano Fletcher MD Work Phone: [facility] 03-31-2024 13:36-0400 Body weight 82.37 kg Emir Orozco MD Work Phone: [facility] 03-31-2024 13:36-0400 Diastolic blood pressure 114 mm[Hg] Emir Orozco MD Work Phone: [facility] 03-31-2024 13:36-0400 Heart rate 108 /min Emir Orozco MD Work Phone: [facility] 03-31-2024 13:36-0400 SaO2% (BldA) [Mass fraction] 99 % Emir Orozco MD Work Phone: [facility] 03-31-2024 13:36-0400 Systolic blood pressure 196 mm[Hg] Emir Orozco MD Work Phone: [facility] 02-17-2024 10:34-0400 Diastolic blood pressure 108 mm[Hg] Christiano Fletcher MD Work Phone: [facility] 02-17-2024 10:34-0400 Heart rate 118 /min Christiano Fletcher MD Work Phone: [facility] 02-17-2024 10:34-0400 Systolic blood pressure 197 mm[Hg] Christiano Fletcher MD Work Phone: [facility] 02-17-2024 09:43-0400 Body mass index (BMI) [Ratio] 34.96 kg/m2 Christiano Fletcher MD Work Phone: [facility] 02-17-2024 09:43-0400 Body weight 83.92 kg Christiano Fletcher MD Work Phone: [facility] 04-09-2023 09:59-0400 Diastolic blood pressure 98 mm[Hg] Vaishali Mendez MAGNETIC DOCTOR Work Phone: [facility] 04-09-2023 09:59-0400 Systolic blood pressure 148 mm[Hg] Vaishali Mendez MAGNETIC DOCTOR Work Phone: [facility] 04-09-2023 09:32-0400 Heart rate 90 /min Vaishali Mendez MAGNETIC DOCTOR Work Phone: [facility] 04-09-2023 09:22-0400 Body mass index (BMI) [Ratio] 32.12 kg/m2 Vaishali Mendez MAGNETIC DOCTOR Work Phone: [facility] 04-09-2023 09:22-0400 Body weight 77.11 kg Vaishali Mendez MAGNETIC DOCTOR Work Phone: [facility] 12-08-2022 14:42-0400 Body height 154.9 cm Vaishali Mendez MAGNETIC DOCTOR Work Phone: [facility] 12-08-2022 14:42-0400 Body mass index (BMI) [Ratio] 31.74 kg/m2 Vaishali Mendez MAGNETIC DOCTOR Work Phone: [facility] 12-08-2022 14:42-0400 Body weight 76.2 kg Vaishali Mendez MAGNETIC DOCTOR Work Phone: [facility] 12-08-2022 14:42-0400 Diastolic blood pressure 73 mm[Hg] Vaishali Mendez MAGNETIC DOCTOR Work Phone: [facility] 12-08-2022 14:42-0400 Heart rate 99 /min Vaishali Mendez MAGNETIC DOCTOR Work Phone: [facility] 12-08-2022 14:42-0400 Systolic blood pressure 117 mm[Hg] Vaishali Mendez MAGNETIC DOCTOR Work Phone: [facility] 06-08-2022 12:03-0500 Body temperature 98.29 [degF] Jaime Coats DO Work Phone: [facility] 06-08-2022 12:03-0500 Diastolic blood pressure 76 mm[Hg] Jaime Coats DO Work Phone: [facility] 06-08-2022 12:03-0500 Heart rate 96 /min Jaime Jorge L DO Work Phone: [facility] 06-08-2022 12:03-0500 Respiratory rate 15 /min Jaime Coats DO Work Phone: [facility] 06-08-2022 12:03-0500 SaO2% (BldA) [Mass fraction] 96 % Jaime Coats DO Work Phone: [facility] 06-08-2022 12:03-0500 Systolic blood pressure 168 mm[Hg] Jaime Jorge L DO Work Phone: [facility] 06-06-2022 23:18-0500 Body height 154.9 cm Jaime Jorge L DO Work Phone: [facility] 06-06-2022 23:18-0500 Body mass index (BMI) [Ratio] 33.45 kg/m2 Jaime Jorge L DO Work Phone: [facility] 06-06-2022 23:18-0500 Body weight 80.3 kg Jaime Coats DO Work Phone: [facility] 05-29-2020 13:31-0500 BMI (Body Mass Index) 34.01 kg/m2 Allan Coats [facility] 05-29-2020 13:31-0500 Body weight 81.65 kg Allan Coats [facility] 05-29-2020 13:31-0500 BP Diastolic 85 mm[Hg] Allan Coats [facility] 05-29-2020 13:31-0500 BP Systolic 140 mm[Hg] Allan Coats [facility] 05-29-2020 13:31-0500 Height 154.9 cm Allan Coats [facility] 05-29-2020 13:31-0500 Pulse (Heart Rate) 99 /min Allan Coats [facility] 05-29-2020 13:31-0500 Pulse Oximetry 96 % Allan Coats [facility] 04-18-2020 12:42-0500 Body Temperature 98.4 [degF] Lucian Fernandez [facility] 04-18-2020 12:42-0500 BP Diastolic 74 mm[Hg] Lucian Fernandez [facility] 04-18-2020 12:42-0500 BP Systolic 149 mm[Hg] Lucian Fernandez [facility] 04-18-2020 12:42-0500 Pulse (Heart Rate) 94 /min Lucian Fernandez [facility] 04-18-2020 12:42-0500 Pulse Oximetry 95 % Lucian Fernandez [facility] 04-18-2020 12:42-0500 Respiratory Rate 16 /min Lucian [place] 04-17-2020 15:20-0500 BMI (Body Mass Index) 34.01 kg/m2 Lucian [place] 04-17-2020 15:20-0500 Body weight 81.65 kg Lucian [place] 04-17-2020 15:20-0500 Height 154.9 cm [facility] En[facility]ters Encounter Date Encounter Type Care Provider Facility Start: 04-25-2025 ambulatory Jillianjacob Waltera OLS Facili ty:[facility] Start: 04-23-2025 ambulatory Jillianjacob Waltera OLS Facili ty:[facility] Start: 04-08-2025 End: 04-22-2025 Evaluation and management of inpatient ELHAM CONNORS Facility:[facility] Start: 05-16-2024 End: 05-16-2024 Office outpatient visit 25 minutes Christiano Fletcher MD Work Phone: [facility] Comment on above: Well controlled type 2 diabetes mellitus (HCC) (Primary Dx) Start: 05-16-2024 End: 05-16-2024 ambulatory CHRISTIANO FLETCHER [facility] Start: 03-31-2024 End: 03-31-2024 Office outpatient visit 25 minutes Emir Orozco MD Work Phone: [facility] Comment on above: Type 2 diabetes mihaela itus without complication, without long- term current use of insulin (Primary Dx); Essential hypertension; Mixed hyperlipidemia; Seizure disorder; Meningioma Start: 03-31-2024 ambulatory SELF SELF [facility] Start: 02-17-2024 End: 02-17-2024 Emergency department patient visit PHYSICIAN [facility] Start: 02-17-2024 End: 02-17-2024 Office outpatient visit 25 minutes Christiano Fletcher MD Work Phone: [facility] Comment on above: Well controlled type 2 diabetes mellitus (HCC) (Primary Dx) Start: 02-17-2024 End: 02-17-2024 ambulatory CHRISTIANO FLETCHER [facility] Start: 02-12-2024 End: 02-16-2024 ambulatory ENEDINASHAYE JURADO [facility] Start: 02-11-2024 End: 02-11-2024 Refill Vaishali Mendez MAGNETIC DOCTOR Work Phone: [facility] Start: 04-09-2023 End: 04-09-2023 Office outpatient visit 25 minutes Vaishali Mendez MAGNETIC DOCTOR Work Phone: [facility] Comment on above: Type 2 diabetes mihaela itus with hyperglycemia, with long-term current use of insulin (HCC) (Primary Dx); Primary hypertension Start: 04-03-2023 End: 04-07-2023 ambulatory JAIME SHINE [facility] Start: 02-06-2023 Refill Vaishali Mendez MAGNETIC DOCTOR Work Phone: [facility] Start: 12-08-2022 End: 12-08-2022 Office outpatient visit 25 minutes Vaishali Mendez MAGNETIC DOCTOR Work Phone: [facility] [place] Comment on above: Type 2 diabetes mihaela itus with hyperglycemia, with long-term current use of insulin (HCC) (Primary Dx); Primary hypertension Start: 11-13-2022 Orders Only Vaishali Mendez MAGNETIC DOCTOR Work Phone: [facility] Comment on above: Type 2 diabetes mihaela itus with hypoglycemia without coma, with long-term current use of insulin (HCC) (Primary Dx) Start: 06-06-2022 End: 06-08-2022 Evaluation and management of inpatient Jaime Coats DO Work Phone: [facility] Cardi[facility] Start: 06-06-2022 ambulatory PROVIDER NOT I N SYSTEM [facility] Start: 07-23-2020 End: 07-23-2020 Orders Only Laurence Gamez Kianna Work Phone: [facility] Start: 05-29-2020 End: 05-29-2020 Office outpatient new 45 minutes Enedina James Work Phone: [facility] Comment on above: Tachycardia (Primary Dx); Essential hypertension; Class 1 obesity due to excess calories with serious comorbidity and body mass index (BMI) of 34.0 to 34.9 in adult; Type 2 diabetes mellitus without complication, with long-term current use of insulin (HCC) Start: 04-17-2020 End: 04-18-2020 Emergency department patient visit Lucian Parasjada Fernandez Work Phone: [facility] Comment on above: Tachycardia (Primary Dx); Hypokalemia; Hypertension, unspecified type Start: 01-01-2018 Patient encounter Lucian Velásquez cility[facility] Start: 01-01-2018 End: 01-01-2018 Patient encounter Lucian Mott Work Phone: [facility] Procedures Date Procedure Procedure Detail Performing Clinician Start: 04-16-2025 Antibody screen ELHAM WEEKS Comment on above: Order Comment: Speci men Type: BLOOD SPECIMENOrdering Facility: [facility] Address: [address] [place] [address] Performed By: #### T SCR ####[facility] BLOOD BANKCLIA [id number] [address] Start: 04-12-2025 Antibody screen ELHAM WEEKS Comment on above: Order Comment: Speci men Type: BLOOD SPECIMENOrdering Facility: [facility] Address: [address] [place] [address] Performed By: #### T SCR ####[facility] BLOOD BANKCLIA [id number] [address] [facility] Start: 04-10-2025 Echocardiography ELHAM FLORES RVIS Start: 05-16-2024 Hemoglobin glycosylated a1c Christiano Fletcher MD Work Phone: Start: 04-09-2023 3 comp foot exam completed Vaishali Mendez CNP Work Phone: Start: 04-03-2023 Microalbumin [Mass/v olume] in Urine by Test strip Vaishali Mendez MAGNETIC DOCTOR Work Phone: Start: 12-08-2022 3 comp foot exam completed Vaishali Mendez MAGNETIC DOCTOR Work Phone: Start: 06-08-2022 Glucose measurement Alice Elizalde MD Work Phone: Start: 06-08-2022 Glucose measurement Gen lanie [facility] Work Phone: Start: 06-08-2022 Comprehensive metabo lic panel Mariel London MD Work Phone: Start: 06-07-2022 Glucose measurement Gen lanie [facility] Work Phone: Start: 06-07-2022 Glucose measurement Gen lanie [facility] Work Phone: Start: 06-07-2022 Glucose measurement Gen lanie [facility] Work Phone: Start: 06-07-2022 Glucose measurement Gen lanie [facility] Work Phone: Start: 06-07-2022 Mri brain brain stem w/o contrast material Fabian Mccabe MD Work Phone: Start: 06-07-2022 Basic metabolic pane l calcium total Mariel London MD Work Phone: Start: 06-07-2022 End: 06-07-2022 Glucose measurement Generic [facility] Work Phone: Start: 06-07-2022 Glucose measurement Gen lanie [facility] Work Phone: Start: 06-07-2022 Basic metabolic pane l calcium total Mariel London MD Work Phone: Start: 06-07-2022 End: 06-07-2022 Glucose measurement Generic [facility] Work Phone: Start: 06-07-2022 Glucose measurement Gen lanie [facility] Work Phone: Start: 06-07-2022 Basic metabolic pane l calcium total Mariel London MD Work Phone: Start: 06-07-2022 End: 06-07-2022 Glucose measurement Generic [facility] Work Phone: Start: 06-07-2022 Glucose measurement Gen lanie [facility] Work Phone: Start: 06-07-2022 End: 06-07-2022 Glucose measurement Generic [facility] Work Phone: Start: 06-07-2022 Glucose measurement Gen lanie [facility] Work Phone: Start: 06-07-2022 Basic metabolic pane l calcium total Mariel London MD Work Phone: Start: 06-07-2022 Lipid panel Fabian Mccabe MD Work Phone: Start: 06-06-2022 Glucose measurement Gen lanie [facility] Work Phone: Start: 06-06-2022 Glucose measurement Kelsy Coats DO Work Phone: Start: 06-06-2022 Gases blood ph direc t tamika xcpt pulse oximitry Jaime Coats DO Work Phone: Start: 06-06-2022 End: 06-06-2022 Basic metabolic panel calcium total Mariel London MD Work Phone: Start: 06-06-2022 OBTAIN VENOUS BLOOD GASES AND PERFORM Mariel London MD Work Phone: Start: 06-06-2022 End: 06-06-2022 Culture bacterial quanttative colony count urine Mariel London MD Work Phone: Start: 06-06-2022 Radiologic exam ches t single view Odilia Goodman MAGNETIC DOCTOR Work Phone: Start: 06-06-2022 Influenza virus A an d B RNA and SARS-CoV-2 (COVID-19) N gene panel - Respiratory specimen by FINA with probe detection Odilia Goodman MAGNETIC DOCTOR Work Phone: Start: 06-06-2022 Ecg routine ecg w/le ast 12 lds w/i&r Jaime Coats DO Work Phone: Start: 06-06-2022 Basic metabolic pane l calcium total Odilia Goodman MAGNETIC DOCTOR Work Phone: Start: 06-06-2022 End: 06-06-2022 Ct head/brain w/o contrast material Odilia Goodman MAGNETIC DOCTOR Work Phone: Start: 04-18-2020 Electrocardiogram Provi gwendolyn Not In System Start: 04-18-2020 Echocardiography Ashleyaldo frances Sierra Work Phone: Start: 04-18-2020 End: 04-18-2020 Glucose [Mass/volume] in Blood Mirela Sirera Work Phone: Start: 04-18-2020 Complete blood count with white cell differential, automated Mirela Sierra Work Phone: Start: 04-18-2020 Complete blood count with white cell differential, manual Mirela Sierra Work Phone: Start: 04-18-2020 Hemoglobin A1c/Hemoglobin.total in Blood Mirela Sierra Work Phone: Start: 04-18-2020 Magnesium [Mass/volu me] in Serum or Plasma Mirela Sierra Work Phone: Start: 04-18-2020 Renal function 2000 panel - Serum or Plasma Mirela Sierra Work Phone: Start: 04-18-2020 Thyrotropin [Units/v olume] in Serum or Plasma by Detection limit <= 0.005 mIU/L Mirela Sierra Work Phone: Start: 04-17-2020 Troponin measurement Ashley Sierra Work Phone: Start: 04-17-2020 Glucose [Mass/volume ] in Blood Mirela Sierra Work Phone: Start: 04-17-2020 COVID-19, MOLECULAR Sandy yue Paras Fernandez Work Phone: Start: 04-17-2020 D-dimer assay, quantitative Lucian Fernandez Work Phone: Start: 04-17-2020 Magnesium [Mass/volu me] in Serum or Plasma Mirela Sierra Work Phone: Start: 04-17-2020 Troponin measurement Pa arlen Fernandez Work Phone: Start: 04-17-2020 12 lead ECG Lucian Fernandez Work Phone: Start: 04-17-2020 Radiologic exam ches t single view Lucian Fernandez Work Phone: Start: 04-17-2020 Basic metabolic 1998 panel - Serum or Plasma Lucian Fernandez Work Phone: Start: 04-17-2020 Complete blood count with white cell differential, automated Lucian Fernandez Work Phone: Start: 04-17-2020 Complete blood count with white cell differential, manual Lucian Fernandez Work Phone: Start: 04-17-2020 INR in Platelet poor plasma by Coagulation assay Lucian Fernandez Work Phone: Start: 04-17-2020 LAVENDER TOP Lucian Fernandez Work Phone: Start: 04-17-2020 LIGHT BLUE TOP Lucian Arellano Work Phone: Start: 04-17-2020 LIGHT GREEN TOP Lucian Rosales Work Phone: Start: 04-17-2020 Magnesium [Mass/volu me] in Serum or Plasma Lucian Fernandez Work Phone: Start: 04-17-2020 MINT GREEN TOP Lucian Arellano Work Phone: Start: 04-17-2020 RAINBOW DRAW Lucian banuelos Jim Work Phone: Start: 04-17-2020 Thyrotropin [Units/v olume] in Serum or Plasma by Detection limit <= 0.005 mIU/L Lucian Crain Jim Work Phone: Start: 04-17-2020 End: 04-18-2020 Troponin measurement Lucian Paras Rafael banuelos Work Phone: Start: 04-17-2020 12 lead ECG Lucian Kg n Jim Work Phone: Plan of Treatment Date Care Activity Detail Author Start: 02-16-2025 Urine screening for protein eGFR Diabetes [facility] Start: 11-14-2024 End: 11-14-2024 Patient encounter procedure 11/14/2024 2:15 PM EDT Office Visit [facility] [address] [place] [address] [place] [address] Lauren Berman, MAGNETIC DOCTOR [address] [place], [place] [id number] [facility] Start: 11-14-2024 End: 05-16-2025 Comprehensive metabolic 2000 panel - Serum or Plasma Comprehensive metabolic panel Lab Routine Well controlled type 2 diabetes mellitus (HCC) Expected: 11/14/2024, Expires: 05/16/2025 [facility] Comment on above: Expected: 11/14/2024 , Expires: 05/16/2025 Start: 11-14-2024 Hemoglobin A1c measurement A1C [facility] Start: 11-14-2024 End: 05-16-2025 Hemoglobin A1c/Hemoglobin.total in Blood Hemoglobin A1c Lab Routine Well controlled type 2 diabetes mellitus (HCC) Expected: 11/14/2024, Expires: 05/16/2025 [facility] Work Phone: Comment on above: Expected: 11/14/2024 , Expires: 05/16/2025 Start: 11-14-2024 End: 05-16-2025 Lipid 1996 panel - Serum or Plasma Lipid Panel Lab Routine Well controlled type 2 diabetes mellitus (HCC) Expected: 11/14/2024, Expires: 05/16/2025 [facility] Comment on above: Expected: 11/14/2024 , Expires: 05/16/2025 Start: 11-14-2024 End: 05-16-2025 Microalbumin measurement, urine, quantitative Microalbumin/Creatinin e Ratio, UR Random Lab Routine Well controlled type 2 diabetes mellitus (HCC) Expected: 11/14/2024, Expires: 05/16/2025 [facility] Comment on above: Expected: 11/14/2024 , Expires: 05/16/2025 Start: 08-12-2024 Hemoglobin A1c measurement A1C [facility] Start: 05-18-2024 End: 02-16-2025 Hemoglobin A1c/Hemoglobin.total in Blood Hemoglobin A1c Lab Routine Well controlled type 2 diabetes mellitus (HCC) Expected: 05/18/2024, Expires: 02/16/2025 [facility] Work Phone: Comment on above: Expected: 05/18/2024 , Expires: 02/16/2025 Start: 05-18-2024 End: 02-16-2025 Lipid 1996 panel - Serum or Plasma Lipid panel Lab Routine Well controlled type 2 diabetes mellitus (HCC) Expected: 05/18/2024, Expires: 02/16/2025 [facility] Comment on above: Expected: 05/18/2024 , Expires: 02/16/2025 Start: 05-18-2024 End: 02-16-2025 Microalbumin measurement, urine, quantitative Microalbumin/Creatinin e Ratio, UR Random Lab Routine Well controlled type 2 diabetes mellitus (HCC) Expected: 05/18/2024, Expires: 02/16/2025 [facility] Comment on above: Expected: 05/18/2024 , Expires: 02/16/2025 Start: 05-16-2024 End: 05-16-2024 Patient encounter procedure 05/16/2024 2:30 PM EST Office Visit [facility] [address] [facility] [place] [address] Christiano Fletcher MD [address] [place] [phone] [facility] Start: 04-25-2024 End: 04-25-2024 Patient encounter procedure 04/25/2024 11:00 AM EST Office Visit [facility] [address] [place] [address] Emir Orozco MD [address] [place] [address] [facility] Start: 04-09-2024 Diabetic foot examination [facility] Start: 04-03-2024 Urine screening for protein [facility] Start: 02-17-2024 End: 02-17-2024 Patient encounter procedure 02/17/2024 10:00 AM EDT Office Visit [facility] [address] [facility] [place] [address] Christiano Fletcher MD [address] [place] [address] [facility] Start: 02-14-2024 COVID-19 Vaccine ( season) COVID-19 Vaccine ( season) [facility] Start: 02-14-2024 COVID-19 Vaccine ( season) COVID-19 Vaccine ( season) [facility] Start: 02-14-2024 Influenza vaccination Influenza Vacc ine (#1) [facility] Start: 12-09-2023 Diabetic foot examination Foot Exam [facility] Start: 10-09-2023 End: 10-09-2023 Patient encounter procedure 10/09/2023 2:00 PM EDT Office Visit [facility] [address] [facility] [place] [phone] Toya Roberson CNP [address] [place], [place] [id number] [facility] Start: 10-03-2023 Hemoglobin A1c measurement A1C [facility] Start: 09-14-2023 End: 04-09-2024 Comprehensive metabolic 2000 panel - Serum or Plasma Comprehensive Metabolic Panel Lab Routine Type 2 diabetes mellitus with hyperglycemia, with long-term current use of insulin (HCC) Expected: 09/14/2023, Expires: 04/09/2024 [facility] Work Phone: Comment on above: Expected: 09/14/2023 , Expires: 04/09/2024 Start: 09-14-2023 End: 04-09-2024 Hemoglobin A1c/Hemoglobin.total in Blood Hemoglobin A1c Lab Routine Type 2 diabetes mellitus with hyperglycemia, with long-term current use of insulin (HCC) Expected: 09/14/2023, Expires: 04/09/2024 [facility] Comment on above: Expected: 09/14/2023 , Expires: 04/09/2024 Start: 09-14-2023 End: 04-09-2024 Thyrotropin [Units/volume] in Serum or Plasma TSH Lab Routine Type 2 diabetes mellitus with hyperglycemia, with long-term current use of insulin (HCC) Expected: 09/14/2023, Expires: 04/09/2024 [facility] Comment on above: Expected: 09/14/2023 , Expires: 04/09/2024 Start: 09-14-2023 End: 04-09-2024 Thyroxine (T4) free [Mass/volume] in Serum or Plasma T4, Free Lab Routine Type 2 diabetes mellitus with hyperglycemia, with long-term current use of insulin (HCC) Expected: 09/14/2023, Expires: 04/09/2024 [facility] Comment on above: Expected: 09/14/2023 , Expires: 04/09/2024 Start: 04-09-2023 End: 04-09-2023 Patient encounter procedure 04/09/2023 9:45 AM EDT Office Visit [facility] [address] [facility] [place] [address] Vaishali Mendez, QUE [address] [place] [address] [facility] Start: 02-17-2023 Hemoglobin A1c measurement A1C [facility] Start: 02-13-2023 End: 12-09-2023 Complete blood count with white cell differential, manual CBC and Differential Lab Routine Type 2 diabetes mellitus with hyperglycemia, with long-term current use of insulin (HCC) Expected: 02/13/2023, Expires: 12/09/2023 [facility] Comment on above: Expected: 02/13/2023 , Expires: 12/09/2023 Start: 02-13-2023 End: 12-09-2023 Comprehensive metabolic 2000 panel - Serum or Plasma Comprehensive Metabolic Panel Lab Routine Type 2 diabetes mellitus with hyperglycemia, with long-term current use of insulin (HCC) Expected: 02/13/2023, Expires: 12/09/2023 [facility] Work Phone: Comment on above: Expected: 02/13/2023 , Expires: 12/09/2023 Start: 02-13-2023 COVID-19 Vaccine () COVID-19 Vaccine () [facility] Start: 02-13-2023 End: 12-09-2023 Hemoglobin A1c/Hemoglobin.total in Blood Hemoglobin A1c Lab Routine Type 2 diabetes mellitus with hyperglycemia, with long-term current use of insulin (HCC) Expected: 02/13/2023, Expires: 12/09/2023 [facility] Comment on above: Expected: 02/13/2023 , Expires: 12/09/2023 Start: 02-13-2023 Influenza vaccination [facility] Start: 02-13-2023 End: 12-09-2023 Lipid 1996 panel - Serum or Plasma Lipid Panel Lab Routine Type 2 diabetes mellitus with hyperglycemia, with long-term current use of insulin (HCC) Expected: 02/13/2023, Expires: 12/09/2023 [facility] Comment on above: Expected: 02/13/2023 , Expires: 12/09/2023 Start: 02-13-2023 End: 12-09-2023 Microalbumin measurement, urine, quantitative Microalbumin/Creatinin e Ratio, UR Random Lab Routine Type 2 diabetes mellitus with hyperglycemia, with long-term current use of insulin (HCC) Expected: 02/13/2023, Expires: 12/09/2023 [facility] Comment on above: Expected: 02/13/2023 , Expires: 12/09/2023 Start: 02-13-2023 End: 12-09-2023 Thyrotropin [Units/volume] in Serum or Plasma TSH Lab Routine Type 2 diabetes mellitus with hyperglycemia, with long-term current use of insulin (HCC) Expected: 02/13/2023, Expires: 12/09/2023 [facility] Comment on above: Expected: 02/13/2023 , Expires: 12/09/2023 Start: 02-13-2023 End: 12-09-2023 Thyroxine (T4) free [Mass/volume] in Serum or Plasma T4, Free Lab Routine Type 2 diabetes mellitus with hyperglycemia, with long-term current use of insulin (HCC) Expected: 02/13/2023, Expires: 12/09/2023 [facility] Comment on above: Expected: 02/13/2023 , Expires: 12/09/2023 Start: 12-30-2022 End: 12-30-2022 Patient encounter procedure 12/30/2022 1:45 PM EDT Office Visit [facility] [address] [place] [address] Office [facility], [address]nd [place] [address] Maryanne Nuñez, MAGNETIC DOCTOR [address] [facility] [address] [place] [address] [facility] Start: 11-21-2022 End: 11-21-2022 Patient encounter procedure 11/21/2022 9:15 AM EDT Office Visit [facility] Phys[facility] [place] [address] [place] [phone] Vaishali Mendez, MAGNETIC DOCTOR [address] [place] [address] [facility] Phys[facility] [place] Start: 09-06-2022 End: 06-08-2023 MR Brain With And Without Contrast MR Brain With And Without Contrast Imaging Routine Meningioma (HCC) Partial seizure disorder (HCC) Expected: 09/06/2022, Expires: 06/08/2023 [facility] Work Phone: Comment on above: Expected: 09/06/2022 , Expires: 06/08/2023 Start: 09-04-2022 Hemoglobin A1c measurement A1C [facility] Start: 04-17-2021 Pneumococcal vaccination Pneum ococcal Vaccine Age 65+ (2 of 2 - PPSV23) [facility] Start: 04-01-2021 COVID-19 Vaccine (3 - Pfizer risk series) COVID-19 Vaccine (3 - Pfizer risk series) [facility] Start: 10-16-2020 HbA1c (Bld) [Mass fraction] A1C [facility] Start: 06-12-2020 Pneumococcal vaccination PNEUM OCOCCAL VACCINE SERIES (2 of 2 - PPSV23 or PCV20) [facility] Start: 06-12-2020 Pneumococcal Vaccine : Age 65+ (2 - PPSV23 if available, else PCV20) Pneumococcal Vaccine: Age 65+ (2 - PPSV23 if available, else PCV20) [facility] Start: 06-12-2020 Pneumococcal Vaccine : Age 65+ (2 - PPSV23 or PCV20) Pneumococcal Vaccine: Age 65+ (2 - PPSV23 or PCV20) [facility] Start: 06-12-2020 Pneumococcal Vaccine : Age 65+ (2 of 2 - PPSV23 or PCV20) Pneumococcal Vaccine: Age 65+ (2 of 2 - PPSV23 or PCV20) [facility] Start: 02-14-2020 Influenza vaccinatio n given Sequential Influenza Vaccine (#1) [facility] Start: 2016 Fall risk assessment Falls Risk Asse ssment [facility] Start: 2016 Pneumococcal vaccination Pneum ococcal Vaccine Age 65+ (1 of 2 - PCV13) [facility] Start: 2011 Respiratory Syncytia l Virus Immunization: Risk, 60-74 Risk, or 75+ (1 - Risk 60-74 years 1-dose series) Respiratory Syncytial Virus Immunization: Risk, 60-74 Risk, or 75+ (1 - Risk 60-74 years 1-dose series) [facility] Start: 2011 RSV VACCINE (1 - 1-d ose 60+ series) RSV VACCINE (1 - 1-dose 60+ series) [facility] Start: 2001 Administration of he rpes zoster vaccine Zoster Vaccines (1 of 2) [facility] Start: 2001 Screening for malign ant neoplasm of colon [facility] Start: 2001 Zoster vaccine hzv l apolonia for subcutaneous use ZOSTER (SHINGLES) VACCINE (1 of 2) [facility] Start: 1996 Screening for malign ant neoplasm of colon COLORECTAL CANCER SCREENING DISCUSSION [facility] Start: 1991 Lipid panel LIPID SCREENING [facility] Start: 1991 Screening for malign ant neoplasm of breast [facility] Start: 1972 Screening for malign ant neoplasm of cervix CERVICAL CANCER SCREENING DISCUSSION [facility] Start: 1970 Administration of he rpes zoster vaccine Zoster Vaccines (1 of 2) [facility] Start: 1970 Third diphtheria, tetanus and acellular pertussis (DTaP) vaccination TDAP (ADULT) [facility] Start: 1969 Hepatitis C antibody , confirmatory test Hepatitis C Screening [facility] Start: 1969 Hepatitis C screening Hepatitis C Sc reening [facility] Start: 1967 COVID-19 Vaccine (1 of 2) COVID-19 Vaccine (1 of 2) [facility] Start: 1963 Adolescent depressio n screening assessment Depression Screening (PHQ9) [facility] Start: 1963 Depression screening using PHQ-9 (Patient Health Questionnaire 9) score [facility] Start: 1961 Albumin DL <= 20 mg/ L (U) [Mass/Vol] Urine Microalbumin [facility] Start: 1961 Diabetic foot examination Foot Exam [facility] Start: 1961 Glaucoma screening [facility] Start: 1961 Ophthalmic examinati on and evaluation Ophthalmology Exam [facility] Start: 1961 Urine screening for protein Urine Microalbumin [facility] Start: 1954 History and physical examination, annual for health maintenance Wellness Visit [facility] Start: 1954 Medicare Wellness Visit Medica re Wellness Visit [facility] Start: 1951 Fall risk assessment Falls Risk Asse ssment [facility] Start: 1951 Hepatitis C screening HEPATITI S C VIRUS SCREENING [facility] Start: 1951 Screening for malign ant neoplasm of colon [facility] Start: 1951 Screening for osteoporosis [facility] Start: 1951 Screening mammography Mammogram [facility] Start: 1951 Tetanus vaccination [facility] Bacteria identified in Unspecified specimen by Aerobe culture Urine Aerobic Culture Microbiology Routine 06/06/2022 7:20 PM EST [facility] Work Phone: End: 11-14-2023 Comprehensive metabolic 2000 panel - Serum or Plasma Comprehensive Metabolic Panel Lab Routine Type 2 diabetes mellitus with hypoglycemia without coma, with long-term current use of insulin (HCC) 1 Occurrences starting 11/13/2022 until 11/14/2023 [facility] Comment on above: 1 Occurrences starti ng 11/13/2022 until 11/14/2023 End: 11-14-2023 Hemoglobin A1c/Hemoglobin.total in Blood Hemoglobin A1c Lab Routine Type 2 diabetes mellitus with hypoglycemia without coma, with long-term current use of insulin (HCC) 1 Occurrences starting 11/13/2022 until 11/14/2023 [facility] Work Phone: Comment on above: 1 Occurrences starti ng 11/13/2022 until 11/14/2023 Immunizations Immunization Date Immunization Notes Care Provider Didier guevara 04-17-2020 influenza, injectabl e, quadrivalent, preservative free Emir Orozco MD Work Phone: [facility] 04-17-2020 pneumococcal conjuga te vaccine, 13 valent Emir Orozco MD Work Phone: [facility] 04-17-2020 influenza virus vaccine, unspecified formulation Vaishali Mendez CNP Work Phone: [facility] Payers Date Payer Category Payer Self-pay 2024 Medicare [id number] 2013 Medicare [id number] 2013 Medicare MEDICARE MEDICAR E PART A & B [id number] 2013-Present [place] [id number] 2013 Medicare [id number] 2013 Medicare [id number] 1950 Unknown [id number] [id number] 1951 Unknown [id number]. 2.900 1951 Unknown [id number]. 2.903 1951 Unknown [id number] [id number]. 2.903 1951 Unknown [id number] [id number]. 2.903 1951 Unknown [id number] [id number]. 2.983 1951 Unknown [id number] [id number]. 2.903 1951 Unknown [id number] [id number]. 2.903 For Life--Medicare Supplement FOR LIFE [id number] Unknown [place] FOR L [place] [id number] Effective for all dates [id number] Unknown [id number] Unknown [id number] Unknown [id number] Unknown [id number]. 2.462 Unknown [id number]. 2.462 Social History Date Type Detail Facility Tobacco smoking stat [facility] Unknown if ever smoked [facility] Start: 1950 Sex Assigned At Not on file [facility] Start: 04-18-2020 End: 12-30-2022 Tobacco smoking status NHIS Never smoker [facility] Start: 04-18-2020 End: 12-30-2022 Tobacco use and exposure Never used [facility] Start: 04-18-2020 End: 05-16-2024 Alcohol intake Lifetime non-drinker (finding) [facility] Start: 04-17-2020 End: 05-29-2020 History SDOH Alcohol Frequency 1 [facility] Start: 05-27-2022 End: 06-06-2022 Exposure to SARS-CoV-2 (event) Not sure [facility] Start: 05-29-2020 End: 05-16-2024 History of Social function [facility] Start: 05-29-2020 End: 05-16-2024 Alcohol Use Disorder Identification Test - Consumption [AUDIT-C] [facility] How often to you hav e a drink containing alcohol? Never [facility] Average Number of Drinks Not on file [facility] History of tobacco use Passive smoker [facility] Start: 03-31-2024 Alcoholic beverage intake Current drinker of alcohol (finding) [facility] Start: 03-31-2024 Alcohol Comment rare per pt [facility] Start: 02-17-2024 Gender identity Identifies as female gender (finding) [facility] Start: 02-17-2024 Sexual orientation Heterosexual (finding) [facility] Medical Equipment Procedure Code Equipment Code Equipment Origin al Text Equipment Identifier Dates [id number] Start: 06-08-2022 Use as directed to inject insulin twice per day . [id number] Start: 03-24-2024 Clinical Notes 06-06-2022 to 04-21-2025 Patient Christiano Gee MD - 05/16/2024 2:30 PM Selvin Orozco MD - 03/31/2024 1:30 PM EDTPatient Christiano Gee MD - 02/17/2024 10:03 AM EDT Note Date & Type Note Facility 04-21-2025 Note [facility] 04-20-2025 Note [facility] 04-19-2025 Note [facility] 04-18-2025 Note [facility] 04-18-2025 Note [facility] 04-17-2025 Note [facility] 04-16-2025 Note [facility] 04-16-2025 Note [facility] 04-15-2025 Note [facility] 04-15-2025 Note [facility] 04-14-2025 Note [facility] 04-14-2025 Note [facility] 04[facility]14-2025 Note [facility] 04-14-2025 Note [facility] 04-14-2025 Note [facility] 04-13-2025 Note [facility] 04-13-2025 Note [facility] 04-13-2025 Note [facility] 04-12-2025 Note [facility] 04-11-2025 Note [facility] 04-11-2025 [facility] 04-11-2025 Note [facility] 04-10-2025 Note [facility] 04-10-2025 Note [facility] 04-09-2025 Note [facility] 04-09-2025 Note [facility] 04-09-2025 Note [facility] 05-16-2024 Instructions Christiano Fletcher MD - 05/16/2024 2:36 PM EST Please change the 70/30 insulin to 4 units before breakfast and 4 units before supper. documented in this encounter [facility] 05-16-2024 History of Present illness Narrative Images from the original note were not included. [facility] [address] [facility] [address] [facility] [id number] Chief Complaint Patient presents with Diabetes Mellitus History of Present Illness: Hilaria Lyons is a 74 y.o. woman with type 2 diabetes, here for a follow up visit. She has been on a low carbohydrate diet since October or November 2022. Her hemoglobin A1c has been much better since. She has lost about 80 lbs since. 70/30 insulin doses were decreased to 6 and 4 units before breakfast and supper, respectively, and she continues to have very well controlled glycemic levels. She has been offered a prescription for CGM but continues to decline it. No CP, palpitations, BARNES, polyuria, polydipsia or blurry vision. 05/16/2024 Hemoglobin A1c 6.4% 02/12/2024 Hemoglobin A1c 6.2% TSH 1.81 Creat 0.57 GFR 97 Diabetes Onset: 2009 DKA: never Diabetes Medications: Metformin 1000 mg twice daily Humulin 70/30: 6 units at breakfast; 4 units at supper Blood glucose monitoring: FSBG 2-3 times a day She declines a prescription for CGM Diabetes complications: None Hypoglycemia: lowest was 89 since her visit in January 2024 Food recall: 1000 kcal low carb Breakfast: instant cream of wheat (one packet with sweet and low) Lunch: salad (tomatoes, one hard boiled egg, cucumber, lettuce, some cheese, one table spoon of dressing) Dinner: Healthy Choice frozen dinner Snacks: cashews, raisins, and cheese mixed together Exercise: walks every day 15 min Allergies: Allergies: Coolidge, Poison rhonda extract, Poison oak extract, and Penicillins Current Outpatient Medications Medication Instructions acetaminophen (TYLENOL) 325 mg, Oral, Every 6 hours PRN amLODIPine (NORVASC) 10 mg, Oral, Daily pqrqtjy-tzamryxtzwhqa-hyfqgyvp (EXCEDRIN MIGRAINE) 250-250-65 mg per tablet 1 tablet, Oral, Every 6 hours PRN carvediloL (COREG) 25 mg, Oral, 2 times daily cholecalciferol (vitamin D3) 2,000 Units, Oral cloNIDine HCL (CATAPRES) 0.1 mg, Oral, 4 times daily ezetimibe (ZETIA) 10 mg, Oral, Daily ibuprofen (ADVIL,MOTRIN) 400 mg, Oral, Every 6 hours PRN insulin NPH and regular human (NovoLIN 70-30 FlexPen U-100) 100 unit/mL (70-30) InPn Inject under the skin 6 units before breakfast and 4 units before dinner insulin syringe-needle U-100 1/2 mL 31 gauge x 15/64 Syrg Use as directed to inject insulin twice per day levETIRAcetam (KEPPRA) 500 mg, Oral, 2 times daily lisinopriL-hydrochlorothiazide (PRINZIDE,ZESTORETIC) 20-12.5 mg per tablet 2 tablets, Oral, Daily with lunch metFORMIN (GLUCOPHAGE) 1,000 mg, Oral, 2 times daily with meals multivitamin (THERAGRAN) per tablet 1 tablet, Oral, Daily, (Women's 50+ with soy) pen needle, diabetic 31 gauge x 5/16 Ndle Use for insulin injection BID Dx E11.65 Past Medical History: Diagnosis Date Arthritis Diabetes mellitus (HCC) Hypertension Meningioma (HCC) 06/08/2022 Obesity Seizures (HCC) Past Surgical History: Procedure Laterality Date CATARACT EXTRACTION, BILATERAL CHOLECYSTECTOMY EYE SURGERY Bilateral 2017 cataracts TUBAL LIGATION 1986 Family History Problem Relation Age of Onset Heart disease Mother Diabetes Mother Cancer Father Social History Substance and Sexual Activity Alcohol Use Never Tobacco & Smokeless: Tobacco Use Smoking status: Never Smokeless tobacco: Never Last 3 Weights: Wt Readings from Last 3 Encounters: 02/17/24 83.9 kg (185 lb) 04/09/23 77.1 kg (170 lb) 12/08/22 76.2 kg (168 lb) Review of Systems All other systems reviewed and are negative. Physical Exam Vitals reviewed. Nursing note reviewed: BU was elevated. Constitutional: Appearance: Normal appearance. HENT: Head: Normocephalic and atraumatic. Eyes: Extraocular Movements: Extraocular movements intact. Conjunctiva/sclera: Conjunctivae normal. Pupils: Pupils are equal, round, and reactive to light. Neck: Comments: No thyromegaly. Cardiovascular: Rate and Rhythm: Normal rate and regular rhythm. Heart sounds: Normal heart sounds. Pulmonary: Effort: Pulmonary effort is normal. Breath sounds: Normal breath sounds. Abdominal: General: Bowel sounds are normal. Palpations: Abdomen is soft. Musculoskeletal: General: Normal range of motion. Cervical back: Normal range of motion and neck supple. Neurological: General: No focal deficit present. Mental Status: She is alert and oriented to person, place, and time. Cranial Nerves: No cranial nerve deficit. Motor: No weakness. Gait: Gait normal. Labs: Lab Results Component Value Date HGBA1C 6.2 (H) 02/12/2024 Potassium Date Value Ref Range Status 02/17/2024 4.1 3.5 - 5.1 mmol/L Final 06/06/2022 3.8 3.5 - 5.1 mmol/L Final 06/06/2022 3.8 3.5 - 5.1 mmol/L Final Chloride Date Value Ref Range Status 02/17/2024 102 98 - 108 mmol/L Final 06/06/2022 100 98 - 108 mmol/L Final 06/06/2022 100 98 - 108 mmol/L Final Bicarbonate Date Value Ref Range Status 02/17/2024 24 21 - 32 mmol/L Final Anion Gap Date Value Ref Range Status 02/17/2024 17 10 - 20 mmol/L Final Glucose Date Value Ref Range Status 02/17/2024 159 (H) 65 - 99 mg/dL Final 06/06/2022 372 (H) 65 - 99 mg/dL Final 06/06/2022 372 (H) 65 - 99 mg/dL Final BUN Date Value Ref Range Status 02/17/2024 22 8 - 25 mg/dL Final 01/01/2018 15 8 - 25 mg/dL Final Creatinine Date Value Ref Range Status 02/17/2024 0.63 0.60 - 1.10 mg/dL Final 01/01/2018 0.58 (L) 0.60 - 1.20 mg/dL Final eGFR Date Value Ref Range Status 02/17/2024 94 >=60 mL/min/1.73 m2 Final Comment: Estimated GFR was calculated using the 2020 CKD-EPI creatinine equation. BUN/Creatinine Ratio Date Value Ref Range Status 02/17/2024 34.9 (H) 10.0 - 20.0 Final Total Protein Date Value Ref Range Status 02/12/2024 7.0 6.0 - 8.0 g/dL Final Albumin Date Value Ref Range Status 02/12/2024 4.2 3.2 - 5.2 g/dL Final Calcium Date Value Ref Range Status 02/17/2024 9.7 8.4 - 10.2 mg/dL Final Alkaline Phosphatase Date Value Ref Range Status 02/12/2024 69 40 - 150 U/L Final AST Date Value Ref Range Status 02/12/2024 19 0-35 U/L U/L Final ALT Date Value Ref Range Status 02/12/2024 12 0-35 U/L U/L Final Total Bilirubin Date Value Ref Range Status 02/12/2024 0.8 0.0 - 1.3 mg/dL Final Labs Lipid Panels: Cholesterol Date Value Ref Range Status 04/03/2023 172 100 - 199 mg/dL Final Comment: National Cholesterol Education Program Guidelines: Cholesterol Desirable: <200 mg/dL Borderline High: 200-239 mg/dL High: greater than or equal to 240 mg/dL Triglycerides Date Value Ref Range Status 04/03/2023 70 30 - 150 mg/dL Final Comment: National Cholesterol Education Program Guidelines: Triglyceride Normal: <150 mg/dL Borderline High: 150-199 mg/dL High: 200-499 mg/dL Very High: greater than or equal to 500 mg/dL HDL Date Value Ref Range Status 04/03/2023 56 40 - 59 mg/dL Final Comment: National Cholesterol Education Program Guidelines: HDL Cholesterol Low: <40 mg/dL Near Optimal: 40-59 mg/dL High: greater than or equal to 60 mg/dL Chol/HDL Ratio Date Value Ref Range Status 04/03/2023 3.1 ratio Final Comment: Female Cholesterol/HDL Ratio: Average risk: 4.4 1/2 average risk: 3.3 2 x average risk: 7.1 LDL Calculated Date Value Ref Range Status 04/03/2023 102 10 - 130 mg/dL Final Comment: National Cholesterol Education Program Guidelines: LDL Cholesterol Optimal: <100 mg/dL Near Optimal/above Optimal: 100-129 mg/dL Borderline High: 130-159 mg/dL High: 160-189 mg/dL Very High: greater than or equal to 190 mg/dL Non HDL Cholesterol Date Value Ref Range Status 04/03/2023 116 mg/dL Final Comment: National Cholesterol Education Program Guidelines: NON HDL Cholesterol Desirable: <130 mg/dL Borderline High: 130-159 mg/dL High: 160-189 mg/dL Very High: > or = 190 mg/dL Labs Complete Blood Count: WBC Date Value Ref Range Status 02/17/2024 11.33 (H) 4.50 - 11.00 K/mcL Final RBC Date Value Ref Range Status 02/17/2024 4.81 4.00 - 5.20 M/mcL Final Hemoglobin Date Value Ref Range Status 02/17/2024 14.2 12.0 - 16.0 g/dL Final Hemoglobin, Blood Gas Date Value Ref Range Status 06/06/2022 16.0 12.0 - 16.0 g/dL Final 06/06/2022 16.0 12.0 - 16.0 g/dL Final 06/06/2022 16.0 12.0 - 16.0 g/dL Final Hematocrit, Calculated Date Value Ref Range Status 06/06/2022 49.1 (H) 36.0 - 46.0 % Final 06/06/2022 49.1 (H) 36.0 - 46.0 % Final 06/06/2022 49.1 (H) 36.0 - 46.0 % Final Hematocrit Date Value Ref Range Status 02/17/2024 41.7 36.0 - 46.0 % Final MCV Date Value Ref Range Status 02/17/2024 86.7 80.0 - 100.0 fL Final MCH Date Value Ref Range Status 02/17/2024 29.5 26.0 - 34.0 pg Final MCHC Date Value Ref Range Status 02/17/2024 34.1 31.0 - 37.0 g/dL Final Platelets Date Value Ref Range Status 02/17/2024 199 150 - 400 K/mcL Final RDW - CV Date Value Ref Range Status 02/17/2024 13.6 11.6 - 14.8 % Final MPV Date Value Ref Range Status 02/17/2024 9.5 9.4 - 12.4 fL Final Assessment and Plan: Ms. Lyons has well controlled type 2 diabetes after losing 80 lbs through a low carbohydrate diet. She continues to maintain that diet. Since her A1c is only 6.4%, I recommend decreasing the 70/30 insulin to 4 units before breakfast and 4 units before supper. I told her she can try to get off of it and see how she does. If her blood sugars go up, she can go back on 70/30. She has not been having hypoglycemic episodes since we started lowering the 70/30 insulin. She is due for retinal exam. 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 BP usually high before her visits; she will follow up with her PCP. Full labs for next visit: A1c, lipid panel, CMP, TSH with reflex FT4 and microalbumin before next visit. Follow Up: 6 months Total visit time: 35 min, which were spent on review of clinic notes and tests, obtaining history and physical exam, counseling and educating the patient, ordering medications, tests and procedures, referring and communicating with other healthcare professionals, documenting clinical information and coordination of care. Christiano Fletcher MD documented in this encounter [facility] 05-16-2024 Note [facility] [address]) [facility] [address] [facility] [id number] Chief Complaint Patient presents with Diabetes Mellitus History of Present Illness: Hilaria Lyons is a 74 y.o. woman with type 2 diabetes, here for a follow up visit. She has been on a low carbohydrate diet since October or November 2022. Her hemoglobin A1c has been much better since. She has lost about 80 lbs since. 70/30 insulin doses were decreased to 6 and 4 units before breakfast and supper, respectively, and she continues to have very well controlled glycemic levels. She has been offered a prescription for CGM but continues to decline it. No CP, palpitations, BARNES, polyuria, polydipsia or blurry vision. 05/16/2024 Hemoglobin A1c 6.4% 02/12/2024 Hemoglobin A1c 6.2% TSH 1.81 Creat 0.57 GFR 97 Diabetes Onset: 2009 DKA: never Diabetes Medications: Metformin 1000 mg twice daily Humulin 70/30: 6 units at breakfast; 4 units at supper Blood glucose monitoring: FSBG 2-3 times a day She declines a prescription for CGM Diabetes complications: None Hypoglycemia: lowest was 89 since her visit in January 2024 Food recall: 1000 kcal low carb Breakfast: instant cream of wheat (one packet with sweet and low) Lunch: salad (tomatoes, one hard boiled egg, cucumber, lettuce, some cheese, one table spoon of dressing) Dinner: Healthy Choice frozen dinner Snacks: cashews, raisins, and cheese mixed together Exercise: walks every day 15 min Allergies: Allergies: Coolidge, Poison rhonda extract, Poison oak extract, and Penicillins Current Outpatient Medications Medication Instructions acetaminophen (TYLENOL) 325 mg, Oral, Every 6 hours PRN amLODIPine (NORVASC) 10 mg, Oral, Daily dnrcjch-cymcnxhxztmuh-ixzhrpeg (EXCEDRIN MIGRAINE) 250-250-65 mg per tablet 1 tablet, Oral, Every 6 hours PRN carvediloL (COREG) 25 mg, Oral, 2 times daily cholecalciferol (vitamin D3) 2,000 Units, Oral cloNIDine HCL (CATAPRES) 0.1 mg, Oral, 4 times daily ezetimibe (ZETIA) 10 mg, Oral, Daily ibuprofen (ADVIL,MOTRIN) 400 mg, Oral, Every 6 hours PRN insulin NPH and regular human (NovoLIN 70-30 FlexPen U-100) 100 unit/mL (70-30) InPn Inject under the skin 6 units before breakfast and 4 units before dinner insulin syringe-needle U-100 1/2 mL 31 gauge x 15/64 Syrg Use as directed to inject insulin twice per day levETIRAcetam (KEPPRA) 500 mg, Oral, 2 times daily lisinopriL-hydrochlorothiazide (PRINZIDE,ZESTORETIC) 20-12.5 mg per tablet 2 tablets, Oral, Daily with lunch metFORMIN (GLUCOPHAGE) 1,000 mg, Oral, 2 times daily with meals multivitamin (THERAGRAN) per tablet 1 tablet, Oral, Daily, (Women's 50+ with soy) pen needle, diabetic 31 gauge x 5/16 Ndle Use for insulin injection BID Dx E11.65 Past Medical History: Diagnosis Date Arthritis Diabetes mellitus (HCC) Hypertension Meningioma (HCC) 06/08/2022 Obesity Seizures (HCC) Past Surgical History: Procedure Laterality Date CATARACT EXTRACTION, BILATERAL CHOLECYSTECTOMY EYE SURGERY Bilateral 2017 cataracts TUBAL LIGATION 1987 Family History Problem Relation Age of Onset Heart disease Mother Diabetes Mother Cancer Father Social History Substance and Sexual Activity Alcohol Use Never Tobacco & Smokeless: Tobacco Use Smoking status: Never Smokeless tobacco: Never Last 3 Weights: Wt Readings from Last 3 Encounters: 02/17/24 83.9 kg (185 lb) 04/09/23 77.1 kg (170 lb) 12/08/22 76.2 kg (168 lb) Review of Systems All other systems reviewed and are negative. Physical Exam Vitals reviewed. Nursing note reviewed: BU was elevated. Constitutional: Appearance: Normal appearance. HENT: Head: Normocephalic and atraumatic. Eyes: Extraocular Movements: Extraocular movements intact. Conjunctiva/sclera: Conjunctivae normal. Pupils: Pupils are equal, round, and reactive to light. Neck: Comments: No thyromegaly. Cardiovascular: Rate and Rhythm: Normal rate and regular rhythm. Heart sounds: Normal heart sounds. Pulmonary: Effort: Pulmonary effort is normal. Breath sounds: Normal breath sounds. Abdominal: General: Bowel sounds are normal. Palpations: Abdomen is soft. Musculoskeletal: General: Normal range of motion. Cervical back: Normal range of motion and neck supple. Neurological: General: No focal deficit present. Mental Status: She is alert and oriented to person, place, and time. Cranial Nerves: No cranial nerve deficit. Motor: No weakness. Gait: Gait normal. Labs: Lab Results Component Value Date HGBA1C 6.2 (H) 02/12/2024 Potassium Date Value Ref Range Status 02/17/2024 4.1 3.5 - 5.1 mmol/L Final 06/06/2022 3.8 3.5 - 5.1 mmol/L Final 06/06/2022 3.8 3.5 - 5.1 mmol/L Final Chloride Date Value Ref Range Status 02/17/2024 102 98 - 108 mmol/L Final 06/06/2022 100 98 - 108 mmol/L Final 06/06/2022 100 98 - 108 mmol/L Final Bicarbonate Date (more content not included)... [facility] 03-31-2024 History of Present illness Narrative New Patient Visit Hilaria Lyons [id number] 1950 03/31/2024 Chief Complaint Patient presents with Establish Care Pt is here today to establish care. Pt has h/o htn. Has been out of medications for 1.5 months. Pt does not monitor at home. Pt is diabetic, sees [facility] for this, last A1C 02/11 6.2% Pt has not had recent mammo, states in the past they found a small mass but it was benign. Pt has never had cscope History of Present Illness: Hilaria Lyons is a 74 y.o. female presenting for an evaluation of Pt here to get established into the practice Hx of HTN-stable Hx of DM2-stable, sees endocrinology for this Hx of dyslipidemia-stable Ct of the head done in February showed: 2. There is a meningioma over the left frontal parietal lobe convexity measuring approximately 7 x 17 mm. No mass effect on the brain. This lesion appears stable. Was told that she has had a bleed on the brain and was put on keppra prophylactic at that point in 2021 History: Past Medical History: Diagnosis Date Arthritis Diabetes mellitus Diabetes mellitus 03/31/2024 Last Assessment & Plan: Recommend good glycemic control. She is on NGOZI inhibition therapy but does not appear to be on statin therapy. Given her likely significantly elevated 10-year ASCVD event risk (not calculated today without HDL on record), I would recommend statin therapy. I would recommend a greater than 50% reduction in her LDL cholesterol from baseline value (goal LDL cholesterol l Essential hypertension, benign Glaucoma Hypertension 03/31/2024 Last Assessment & Plan: Uncontrolled. She is currently on maximum doses of beta-blockade, amlodipine, NGOZI inhibition and diuretic therapy. We will go ahead and add hydralazine 25 mg 3 times daily to her regimen. Additionally, I would combine NGOZI inhibition/diuretic doses to once daily for a better pharmacological effect. Follow-up in 3 months. Hypoglycemia 11/21/2022 Meningioma 06/08/2022 Last Assessment & Plan: 1. MRI brain 06/07/2022: No acute ischemia. Left parietal convexity extra-axial dural-based mass likely relating to meningioma detailed above with minimal mass effect on adjacent brain parenchyma without substantial edema. Mild supratentorial white matter change which most commonly relates to sequela of small vessel disease. 2. Follow-up MRI brain needs scheduled. Migraine Partial seizure disorder 06/06/2022 Last Assessment & Plan: 1. Questionable partial seizure May 2022. No seizure or seizure like episodes reported since discharge. MRI brain showed incidental meningioma in the left parietal region close to the cortex, which could create cortical irritability. 2. Continue Keppra 500 mg BID. Side effects of the medication discussed. Patient denies any side effects of medication and karen Stroke Type 2 diabetes mellitus with hyperglycemia 06/06/2022 Past Surgical History: Procedure Laterality Date CHOLECYSTECTOMY N/A 1998 TUBAL LIGATION N/A 1986 REVISION CATARACT OR IOL Bilateral [place] Family History Problem Relation Age of Onset Diabetes Mother Hypertension Mother Diabetes Sister Hypertension Sister Social History Socioeconomic History Marital status: Tobacco Use Smoking status: Never Passive exposure: Past Smokeless tobacco: Never Vaping Use Vaping status: Never Used Substance and Sexual Activity Alcohol use: Yes Comment: rare per pt Drug use: Never Social History Tobacco Use Smoking Status Never Passive exposure: Past Smokeless Tobacco Never Social History Substance and Sexual Activity Alcohol Use Yes Comment: rare per pt Social History Substance and Sexual Activity Drug Use Never Allergies: Coolidge, Extract of poison rhonda, Extract of poison oak, Latex, and Penicillins Home Medications: Current Outpatient Medications: Acetaminophen 325 MG tablet, Take 1 tablet by mouth Every 6 hours as needed., Disp: , Rfl: amLODIPine 10 MG tablet, Take 1 tablet by mouth daily., Disp: 90 tablet, Rfl: 3 tqvgmmb-haodvopductse-ymntndjh 250-250-65 MG tablet, Take 1 tablet by mouth Every 6 hours as needed., Disp: , Rfl: carveDILOL 25 MG tablet, Take 1 tablet by mouth 2 times daily., Disp: 180 tablet, Rfl: 3 cholecalciferol 50 MCG (2000 UNIT) tablet, Take 1 tablet by mouth daily., Disp: , Rfl: cloNIDine 0.1 MG tablet, Take 1 tablet by mouth 4 times daily., Disp: 360 tablet, Rfl: 3 Ezetimibe 10 MG tablet, Take 1 tablet by mouth daily., Disp: 90 tablet, Rfl: 3 levETIRAcetam 500 MG tablet, Take 1 tablet by mouth 2 times daily., Disp: 60 tablet, Rfl: 0 lisinopril-hydrochlorothiazide 20-12.5 MG per tablet, Take 1 tablet by mouth daily., Disp: 90 tablet, Rfl: 3 metFORMIN 500 MG tablet, Take 2 tablets by mouth 2 times daily with meals., Disp: , Rfl: Multiple Vitamin (Multi-Vitamin) tablet, Take 1 tablet by mouth daily., Disp: , Rfl: NovoLIN 70/30 FlexPen Relion (70-30) 100 UNIT/ML injection, INJECT 6 UNITS SUBCUTANEOUSLY BEFORE BREAKFAST AND 4 UNITS BEFORE SUPPER, Disp: , Rfl: ReliOn Insulin Syringe 31G X 15/64 0.5 ML Misc, USE DIRECTED TO INJECT INSULIN TWICE DAILY, Disp: , Rfl: ROS: Review of Systems Constitutional: Negative for chills, fatigue and fever. Respiratory: Negative for cough and shortness of breath. Cardiovascular: Negative for chest pain and palpitations. Gastrointestinal: Negative for constipation and diarrhea. Physical Examination: Vital Signs: BP (!) 196/114 (BP Location: Right arm, BP Position: Sitting) Pulse 108 Wt 82.4 kg (181 lb 9.6 oz) SpO2 99% Smoking Status Never No notes on file Physical Exam Constitutional: Appearance: Normal appearance. Cardiovascular: Rate and Rhythm: Normal rate and regular rhythm. Pulses: Normal pulses. Heart sounds: Normal heart sounds. Pulmonary: Effort: Pulmonary effort is normal. Breath sounds: Normal breath sounds. Neurological: General: No focal deficit present. Mental Status: She is alert and oriented to person, place, and time. Procedure none Laboratory and Additional Data Reviewed: No results found for this or any previous visit. No images are attached to the encounter. Assessment and Plan: Hilaria Lyons is a 74 y.o. female that presented for evaluation of Call the office for any questions or concerns. I did have discussion that if any medications are not covered or is not able to get the medications to call the office and let us know so other alternative/arrangements can be made. Hilaria was seen today for establish care. Diagnoses and all orders for this visit: Type 2 diabetes mellitus without complication, without long-term current use of insulin Essential hypertension - amLODIPine 10 MG tablet; Take 1 tablet by mouth daily. - carveDILOL 25 MG tablet; Take 1 tablet by mouth 2 times daily. - cloNIDine 0.1 MG tablet; Take 1 tablet by mouth 4 times daily. - lisinopril-hydrochlorothiazide 20-12.5 MG per tablet; Take 1 tablet by mouth daily. Mixed hyperlipidemia - Ezetimibe 10 MG tablet; Take 1 tablet by mouth daily. Seizure disorder - levETIRAcetam 500 MG tablet; Take 1 tablet by mouth 2 times daily. - AMB REFERRAL TO NEUROLOGY Meningioma - AMB REFERRAL TO NEUROLOGY Emir Orozco MD documented in this encounter [facility] 02-17-2024 Instructions Christiano Fletcher MD - 02/17/2024 10:13 AM EDT Humulin 70/30: 6 units at breakfast; 4 units at supper documented in this encounter [facility] 02-17-2024 Note [facility] [address] ([address]) [facility] [address] [facility] [id number] Chief Complaint Patient presents with Diabetes Mellitus Gap Closure (Health Maintenance) Diabetic Eye Exam Never done History of Present Illness: Hilaria Lyons is a 73 y.o. woman with type 2 diabetes, here for a follow up visit. She has been on a low carbohydrate diet since October or November 2022. Her hemoglobin A1c has been much better since. She has lost about 80 lbs since. Having more low blood sugars lately and having to treat the episodes. No CP, palpitations, BARNES, polyuria, polydipsia or blurry vision. 02/12/2024 Hemoglobin A1c 6.2% TSH 1.81 Creat 0.57 GFR 97 DKA: never Diabetes Onset: 2009 Diabetes Medications: Metformin 1000 mg twice daily Humulin 70/30: 12 units at breakfast; 8 units at supper Blood glucose monitoring: FSBG 2-3 times a day Diabetes complications: None Hypoglycemia: as per HPI Food recall: 1000 kcal low carb Breakfast: instant cream of wheat (one packet with sweet and low) Lunch: salad (tomatoes, one hard boiled egg, cucumber, lettuce, some cheese, one table spoon of dressing) Dinner: Healthy Choice frozen dinner Snacks: cashews, raisins, and cheese mixed together Exercise: walks every day 15 min Allergies: Allergies: Coolidge, Poison rhonda extract, Poison oak extract, and Penicillins Current Outpatient Medications Medication Instructions acetaminophen (TYLENOL) 325 mg, Oral, Every 6 hours PRN amLODIPine (NORVASC) 10 mg, Oral, Daily wcbutyy-gcexljskitanv-jfyqnsjd (EXCEDRIN MIGRAINE) 250-250-65 mg per tablet 1 tablet, Oral, Every 6 hours PRN carvediloL (COREG) 25 mg, Oral, 2 times daily cholecalciferol (vitamin D3) 2,000 Units, Oral cloNIDine HCL (CATAPRES) 0.1 mg, Oral, 4 times daily ezetimibe (ZETIA) 10 mg, Oral, Daily ibuprofen (ADVIL,MOTRIN) 400 mg, Oral, Every 6 hours PRN insulin NPH and regular human 100 unit/mL (70-30) InPn Take 12 units before breakfast and 8 units before dinner. Needs Reli-on pens levETIRAcetam (KEPPRA) 500 mg, Oral, 2 times daily lisinopriL-hydrochlorothiazide (PRINZIDE,ZESTORETIC) 20-12.5 mg per tablet 2 tablets, Oral, Daily with lunch metFORMIN (GLUCOPHAGE) 1,000 mg, Oral, 2 times daily with meals multivitamin (THERAGRAN) per tablet 1 tablet, Oral, Daily, (Women's 50+ with soy) pen needle, diabetic 31 gauge x 5/16 Ndle Use for insulin injection BID Dx E11.65 Past Medical History: Diagnosis Date Arthritis Diabetes mellitus (HCC) Hypertension Meningioma (HCC) 06/08/2022 Obesity Seizures (HCC) Past Surgical History: Procedure Laterality Date CATARACT EXTRACTION, BILATERAL CHOLECYSTECTOMY EYE SURGERY Bilateral 2017 cataracts TUBAL LIGATION 1986 Family History Problem Relation Age of Onset Heart disease Mother Diabetes Mother Cancer Father Social History Substance and Sexual Activity Alcohol Use Never Tobacco & Smokeless: Tobacco Use Smoking status: Never Smokeless tobacco: Never Last Height and Weight with BMI: 83.9 kg (185 lb) Body mass index is 34.96 kg/m . Last 3 Weights: Wt Readings from Last 3 Encounters: 02/17/24 83.9 kg (185 lb) 04/09/23 77.1 kg (170 lb) 12/08/22 76.2 kg (168 lb) Review of Systems All other systems reviewed and are negative. Physical Exam Vitals reviewed. Nursing note reviewed: very hypertensive; second check 190/108. Constitutional: Appearance: Normal appearance. HENT: Head: Normocephalic and atraumatic. Eyes: Extraocular Movements: Extraocular movements intact. Conjunctiva/sclera: Conjunctivae normal. Pupils: Pupils are equal, round, and reactive to light. Neck: Comments: No thyromegaly Cardiovascular: Rate and Rhythm: Normal rate and regular rhythm. Pulses: Normal pulses. Heart sounds: Normal heart sounds. Pulmonary: Effort: Pulmonary effort is normal. Breath sounds: Normal breath sounds. Abdominal: General: Bowel sounds are normal. Palpations: Abdomen is soft. Musculoskeletal: General: Normal range of motion. Cervical back: Normal range of motion and neck supple. Right lower leg: No edema. Left lower leg: No edema. Neurological: General: No focal deficit present. Mental Status: She is alert and oriented to person, place, and time. Cranial Nerves: No cranial nerve deficit. Motor: No weakness. Gait: Gait normal. Psychiatric: Comments: Very pressured speech; hard to interrupt her. Labs: Lab Results Component Value Date HGBA1C 6.2 (H) 02/12/2024 Potassium Date Value Ref Range Status 02/12/2024 3.6 3.5 - 5.1 mmol/L Final 06/06/2022 3.8 3.5 - 5.1 mmol/L Final 06/06/2022 3.8 3.5 - 5.1 mmol/L Final Chloride Date Value Ref Range Status 02/12/2024 103 98 - 108 mmol/L Final 06/06/2022 100 98 - 108 mmol/L Final 06/06/2022 100 98 - 108 mmol/L Final Bicarbonate Date Value Ref Range Status 02/12/2024 27 21 - 32 mmol/L Final Anion Gap D (more content not included)... [facility] 02-17-2024 History of Present illness Narrative Images from the original note were not included. [facility] [address] ([address]) [facility] [address] [facility] [id number] Chief Complaint Patient presents with Diabetes Mellitus Gap Closure (Health Maintenance) Diabetic Eye Exam Never done History of Present Illness: Hilaria Lyons is a 73 y.o. woman with type 2 diabetes, here for a follow up visit. She has been on a low carbohydrate diet since October or November 2022. Her hemoglobin A1c has been much better since. She has lost about 80 lbs since. Having more low blood sugars lately and having to treat the episodes. No CP, palpitations, BARNES, polyuria, polydipsia or blurry vision. 02/12/2024 Hemoglobin A1c 6.2% TSH 1.81 Creat 0.57 GFR 97 DKA: never Diabetes Onset: 2009 Diabetes Medications: Metformin 1000 mg twice daily Humulin 70/30: 12 units at breakfast; 8 units at supper Blood glucose monitoring: FSBG 2-3 times a day Diabetes complications: None Hypoglycemia: as per HPI Food recall: 1000 kcal low carb Breakfast: instant cream of wheat (one packet with sweet and low) Lunch: salad (tomatoes, one hard boiled egg, cucumber, lettuce, some cheese, one table spoon of dressing) Dinner: Healthy Choice frozen dinner Snacks: cashews, raisins, and cheese mixed together Exercise: walks every day 15 min Allergies: Allergies: Coolidge, Poison rhonda extract, Poison oak extract, and Penicillins Current Outpatient Medications Medication Instructions acetaminophen (TYLENOL) 325 mg, Oral, Every 6 hours PRN amLODIPine (NORVASC) 10 mg, Oral, Daily mgpqibk-kubdvwclojwbi-vxcpqxja (EXCEDRIN MIGRAINE) 250-250-65 mg per tablet 1 tablet, Oral, Every 6 hours PRN carvediloL (COREG) 25 mg, Oral, 2 times daily cholecalciferol (vitamin D3) 2,000 Units, Oral cloNIDine HCL (CATAPRES) 0.1 mg, Oral, 4 times daily ezetimibe (ZETIA) 10 mg, Oral, Daily ibuprofen (ADVIL,MOTRIN) 400 mg, Oral, Every 6 hours PRN insulin NPH and regular human 100 unit/mL (70-30) InPn Take 12 units before breakfast and 8 units before dinner. Needs Reli-on pens levETIRAcetam (KEPPRA) 500 mg, Oral, 2 times daily lisinopriL-hydrochlorothiazide (PRINZIDE,ZESTORETIC) 20-12.5 mg per tablet 2 tablets, Oral, Daily with lunch metFORMIN (GLUCOPHAGE) 1,000 mg, Oral, 2 times daily with meals multivitamin (THERAGRAN) per tablet 1 tablet, Oral, Daily, (Women's 50+ with soy) pen needle, diabetic 31 gauge x 5/16 Ndle Use for insulin injection BID Dx E11.65 Past Medical History: Diagnosis Date Arthritis Diabetes mellitus (HCC) Hypertension Meningioma (HCC) 06/08/2022 Obesity Seizures (HCC) Past Surgical History: Procedure Laterality Date CATARACT EXTRACTION, BILATERAL CHOLECYSTECTOMY EYE SURGERY Bilateral 2017 cataracts TUBAL LIGATION 1986 Family History Problem Relation Age of Onset Heart disease Mother Diabetes Mother Cancer Father Social History Substance and Sexual Activity Alcohol Use Never Tobacco & Smokeless: Tobacco Use Smoking status: Never Smokeless tobacco: Never Last Height and Weight with BMI: 83.9 kg (185 lb) Body mass index is 34.96 kg/m . Last 3 Weights: Wt Readings from Last 3 Encounters: 02/17/24 83.9 kg (185 lb) 04/09/23 77.1 kg (170 lb) 12/08/22 76.2 kg (168 lb) Review of Systems All other systems reviewed and are negative. Physical Exam Vitals reviewed. Nursing note reviewed: very hypertensive; second check 190/108. Constitutional: Appearance: Normal appearance. HENT: Head: Normocephalic and atraumatic. Eyes: Extraocular Movements: Extraocular movements intact. Conjunctiva/sclera: Conjunctivae normal. Pupils: Pupils are equal, round, and reactive to light. Neck: Comments: No thyromegaly Cardiovascular: Rate and Rhythm: Normal rate and regular rhythm. Pulses: Normal pulses. Heart sounds: Normal heart sounds. Pulmonary: Effort: Pulmonary effort is normal. Breath sounds: Normal breath sounds. Abdominal: General: Bowel sounds are normal. Palpations: Abdomen is soft. Musculoskeletal: General: Normal range of motion. Cervical back: Normal range of motion and neck supple. Right lower leg: No edema. Left lower leg: No edema. Neurological: General: No focal deficit present. Mental Status: She is alert and oriented to person, place, and time. Cranial Nerves: No cranial nerve deficit. Motor: No weakness. Gait: Gait normal. Psychiatric: Comments: Very pressured speech; hard to interrupt her. Labs: Lab Results Component Value Date HGBA1C 6.2 (H) 02/12/2024 Potassium Date Value Ref Range Status 02/12/2024 3.6 3.5 - 5.1 mmol/L Final 06/06/2022 3.8 3.5 - 5.1 mmol/L Final 06/06/2022 3.8 3.5 - 5.1 mmol/L Final Chloride Date Value Ref Range Status 02/12/2024 103 98 - 108 mmol/L Final 06/06/2022 100 98 - 108 mmol/L Final 06/06/2022 100 98 - 108 mmol/L Final Bicarbonate Date Value Ref Range Status 02/12/2024 27 21 - 32 mmol/L Final Anion Gap Date Value Ref Range Status 02/12/2024 14 10 - 20 mmol/L Final Glucose Date Value Ref Range Status 02/12/2024 159 (H) 65 - 99 mg/dL Final 06/06/2022 372 (H) 65 - 99 mg/dL Final 06/06/2022 372 (H) 65 - 99 mg/dL Final BUN Date Value Ref Range Status 02/12/2024 19 8 - 25 mg/dL Final 01/01/2018 15 8 - 25 mg/dL Final Creatinine Date Value Ref Range Status 02/12/2024 0.57 (L) 0.60 - 1.10 mg/dL Final 01/01/2018 0.58 (L) 0.60 - 1.20 mg/dL Final eGFR Date Value Ref Range Status 02/12/2024 97 >=60 mL/min/1.73 m2 Final Comment: Estimated GFR was calculated using the 2020 CKD-EPI creatinine equation. BUN/Creatinine Ratio Date Value Ref Range Status 02/12/2024 33.3 (H) 10.0 - 20.0 Final Total Protein Date Value Ref Range Status 02/12/2024 7.0 6.0 - 8.0 g/dL Final Albumin Date Value Ref Range Status 02/12/2024 4.2 3.2 - 5.2 g/dL Final Calcium Date Value Ref Range Status 02/12/2024 9.6 8.4 - 10.2 mg/dL Final Alkaline Phosphatase Date Value Ref Range Status 02/12/2024 69 40 - 150 U/L Final AST Date Value Ref Range Status 02/12/2024 19 0-35 U/L U/L Final ALT Date Value Ref Range Status 02/12/2024 12 0-35 U/L U/L Final Total Bilirubin Date Value Ref Range Status 02/12/2024 0.8 0.0 - 1.3 mg/dL Final Labs Lipid Panels: Cholesterol Date Value Ref Range Status 04/03/2023 172 100 - 199 mg/dL Final Comment: National Cholesterol Education Program Guidelines: Cholesterol Desirable: <200 mg/dL Borderline High: 200-239 mg/dL High: greater than or equal to 240 mg/dL Triglycerides Date Value Ref Range Status 04/03/2023 70 30 - 150 mg/dL Final Comment: National Cholesterol Education Program Guidelines: Triglyceride Normal: <150 mg/dL Borderline High: 150-199 mg/dL High: 200-499 mg/dL Very High: greater than or equal to 500 mg/dL HDL Date Value Ref Range Status 04/03/2023 56 40 - 59 mg/dL Final Comment: National Cholesterol Education Program Guidelines: HDL Cholesterol Low: <40 mg/dL Near Optimal: 40-59 mg/dL High: greater than or equal to 60 mg/dL Chol/HDL Ratio Date Value Ref Range Status 04/03/2023 3.1 ratio Final Comment: Female Cholesterol/HDL Ratio: Average risk: 4.4 1/2 average risk: 3.3 2 x average risk: 7.1 LDL Calculated Date Value Ref Range Status 04/03/2023 102 10 - 130 mg/dL Final Comment: National Cholesterol Education Program Guidelines: LDL Cholesterol Optimal: <100 mg/dL Near Optimal/above Optimal: 100-129 mg/dL Borderline High: 130-159 mg/dL High: 160-189 mg/dL Very High: greater than or equal to 190 mg/dL Non HDL Cholesterol Date Value Ref Range Status 04/03/2023 116 mg/dL Final Comment: National Cholesterol Education Program Guidelines: NON HDL Cholesterol Desirable: <130 mg/dL Borderline High: 130-159 mg/dL High: 160-189 mg/dL Very High: > or = 190 mg/dL Labs Complete Blood Count: WBC Date Value Ref Range Status 04/03/2023 11.45 (H) 4.50 - 11.00 K/mcL Final RBC Date Value Ref Range Status 04/03/2023 4.89 4.00 - 5.20 M/mcL Final Hemoglobin Date Value Ref Range Status 04/03/2023 14.4 12.0 - 16.0 g/dL Final Hemoglobin, Blood Gas Date Value Ref Range Status 06/06/2022 16.0 12.0 - 16.0 g/dL Final 06/06/2022 16.0 12.0 - 16.0 g/dL Final 06/06/2022 16.0 12.0 - 16.0 g/dL Final Hematocrit, Calculated Date Value Ref Range Status 06/06/2022 49.1 (H) 36.0 - 46.0 % Final 06/06/2022 49.1 (H) 36.0 - 46.0 % Final 06/06/2022 49.1 (H) 36.0 - 46.0 % Final Hematocrit Date Value Ref Range Status 04/03/2023 43.2 36.0 - 46.0 % Final MCV Date Value Ref Range Status 04/03/2023 88.3 80.0 - 100.0 fL Final MCH Date Value Ref Range Status 04/03/2023 29.4 26.0 - 34.0 pg Final MCHC Date Value Ref Range Status 04/03/2023 33.3 31.0 - 37.0 g/dL Final Platelets Date Value Ref Range Status 04/03/2023 174 150 - 400 K/mcL Final RDW - CV Date Value Ref Range Status 04/03/2023 12.4 11.6 - 14.8 % Final MPV Date Value Ref Range Status 04/03/2023 9.6 9.4 - 12.4 fL Final Assessment and Plan: Ms. Lyons is a 73 year old woman with well controlled type 2 diabetes after losing 80 lbs through a low carbohydrate diet. She has been having hypoglycemic episodes and I recommend lowering Humulin 70/30 to 6 units at breakfast and 4 units at supper. It may be that next time when she returns for her follow up, we will be able to discontinue her insulin therapy. Her BP was very high today and we advised her to seek care at the ER. She will do so. She is due for retinal exam. 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 Needs a lipid panel and microalbumin before next visit. Follow Up: 3 months Total visit time: 35 min, which were spent on review of clinic notes and tests, obtaining history and physical exam, counseling and educating the patient, ordering medications, tests and procedures, referring and communicating with other healthcare professionals, documenting clinical information and coordination of care. Christiano Fletcher MD documented in this encounter [facility] 04-09-2023 History of Present illness Narrative Images from the original note were not included. Patient ID: Hilaria Lyons is a 73 y.o. female 1950 Subjective: Hilaria Lyons presents for follow-up of Type 2 diabetes Patient has had diabetes for 12 years. Diagnosed in 2009 Patient has taken Insulin for 1 years Hilaria Lyons is a 73 y.o. year old female with hx of DM, HTN, meningioma, who was brought to the hospital on 11/20 after she fell and and felt too weak to get up. She was found on the floor by her neighbor who called the squad; BG 55, which resolved after dextrose infusion. Here she had hypothermia, and received Abx for possible sepsis but that was felt to be less likely. TSH is normal. Outpatient Medications Marked as Taking for the 04/09/23 encounter (Office Visit) with Vaishali Mendez, QUE: acetaminophen (TYLENOL) 325 MG tablet, Take 1 (one) tablet (325 mg total) by mouth every 6 (six) hours as needed . amLODIPine (NORVASC) 10 MG tablet, Take 1 (one) tablet (10 mg total) by mouth daily . qvxhrhq-uoxgktwvltqsr-zvfzlujh (EXCEDRIN MIGRAINE) 250-250-65 mg per tablet, Take 1 (one) tablet by mouth every 6 (six) hours as needed for pain . carvediloL (COREG) 25 MG tablet, Take 1 (one) tablet (25 mg total) by mouth 2 (two) times a day . cholecalciferol, vitamin D3, 50 mcg (2,000 unit) Tab, Take 1 (one) tablet (2,000 Units total) by mouth . cloNIDine HCL (CATAPRES) 0.1 MG tablet, Take 1 (one) tablet (0.1 mg total) by mouth 4 (four) times a day . ezetimibe (ZETIA) 10 mg tablet, Take 1 (one) tablet (10 mg total) by mouth daily . ibuprofen (ADVIL,MOTRIN) 200 MG tablet, Take 2 (two) tablets (400 mg total) by mouth every 6 (six) hours as needed for pain . insulin NPH and regular human 100 unit/mL (70-30) InPn, Take 12 units before breakfast and 8 units before dinner. Needs Reli-on pens . levETIRAcetam (KEPPRA) 500 MG tablet, Take 1 (one) tablet (500 mg total) by mouth 2 (two) times a day . lisinopriL-hydrochlorothiazide (PRINZIDE,ZESTORETIC) 20-12.5 mg per tablet, Take 2 (two) tablets by mouth daily with lunch . metFORMIN (GLUCOPHAGE) 1000 MG tablet, Take 1 (one) tablet (1,000 mg total) by mouth 2 (two) times a day with meals . multivitamin (THERAGRAN) per tablet, Take 1 (one) tablet by mouth daily (Women's 50+ with soy) . pen needle, diabetic 31 gauge x 5/16 Ndle, Use for insulin injection BID Dx E11.65 . Review of Systems: Review of Systems Constitutional: Negative for fatigue and unexpected weight change. Eyes: Negative for visual disturbance. Respiratory: Negative for cough and shortness of breath. Cardiovascular: Negative for chest pain and leg swelling. Gastrointestinal: Negative for abdominal pain, constipation, diarrhea, nausea and vomiting. Endocrine: Negative for polydipsia, polyphagia and polyuria. Genitourinary: Negative for frequency and urgency. Skin: Negative for wound. Neurological: Negative for numbness and headaches. Psychiatric/Behavioral: Negative for agitation and sleep disturbance. The patient is not nervous/anxious. The following portions of the patient's history were reviewed and updated as appropriate: allergies, current medications, past family history, past medical history, past social history, past surgical history and problem list. Objective: BP (!) 148/98 Pulse 90 Wt 77.1 kg (170 lb) BMI 32.12 kg/m Wt Readings from Last 3 Encounters: 04/09/23 77.1 kg (170 lb) 12/08/22 76.2 kg (168 lb) 11/21/22 77.1 kg (170 lb) Physical Exam: Physical Exam General: alert, appears stated age and cooperative Eyes: conjunctivae/corneas clear. PERRL, EOM's intact. Neck: no adenopathy, supple, symmetrical, trachea midline. Thyroid: No thyromegaly appreciated Lung: clear to auscultation bilaterally Heart: regular rate and rhythm, S1, S2 normal, no murmur, click, rub or gallop Extremities: extremities normal, atraumatic, no cyanosis or edema Feet: Dry skin, Bilateral Feet: warm, good capillary refill, bunions, and normal DP. Monofilament exam Normal , bilateral lower extremities. Neuro: normal without focal findings, mental status, speech normal, alert and oriented x3 and AFSANEH Laboratory Review: BP (!) 148/98 Pulse 90 Wt 77.1 kg (170 lb) BMI 32.12 kg/m Lab Results Component Value Date HGBA1C 5.6 04/03/2023 Glucose (mg/dL) Date Value 04/03/2023 86 06/06/2022 372 (H) 06/06/2022 372 (H) Creatinine (mg/dL) Date Value 04/03/2023 0.56 (L) 01/01/2018 0.58 (L) Lab Results Component Value Date CHOL 172 04/03/2023 TRIG 70 04/03/2023 HDL 56 04/03/2023 LDLCALC 102 04/03/2023 Lab Results Component Value Date TSH 1.90 04/03/2023 Lab Results Component Value Date WBC 11.45 (H) 04/03/2023 HGB 14.4 04/03/2023 HCT 43.2 04/03/2023 MCV 88.3 04/03/2023 PLT 174 04/03/2023 Date: 04/03/23 *labs reviewed 04/09/23 Hgb A1c: 5.6% Creat: 0.56; eGFR: 97 AST: 9; ALT: 20 K: 4.0 CBC: WBC:11.45; Hgb: 14.4; Hct: 43.2; Plt: 174 Tchol: 172; Tri ; HDL: 56 ; LDL: 102 TSH: 1.90 ; FreeT4: 1.1 Microalbumin/creatinine Ratio: 82 11/17/22 Hgb A1c: 11.9% Assessment/Plan: Dx: 1. Type 2 diabetes mellitus with hyperglycemia, with long-term current use of insulin (HCC) 2. Primary hypertension Type 2 diabetes, under improving control Currently taking: Metformin 1000 mg twice daily Humulin 70/30: 12 units at breakfast; 8 units at supper Current Hemoglobin A1C= Lab Results Component Value Date HGBA1C 5.6 04/03/2023 HGBA1C 11.9 (H) 11/17/2022 HGBA1C 13.7 (H) 06/06/2022 Weight trend: has decreased 70 lbs. Current diet: avoiding concentrated sugars Current exercise: none Current monitoring regimen: home blood tests - 2 times daily Home blood sugar records: Fasting B-201 Pre-lunch BG: Pre-supper B-197 Bedtime BG: Any episodes of hypoglycemia? no NOTES: Hospitalized with hypoglycemia 11/20/22. Has been taking BID 70/30 and metformin. Was on glimepiride, but stopped at the hospital. 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 Diaz Other Ophthalmologic Conditions: S/P Right cataract extraction with IOLI and S/P Left cataract extraction with IOLI Nephropathy: Negative Creat: 0.56 04/06.. Lab Results Component Value Date CREATININE 0.56 (L) 04/03/2023 EXTEGFR >=60 01/01/2018 EXTEGFRAFAME >=60 01/01/2018 Microlbumin/creat ratio: 82 10/23. Is patient on NGOZI inhibitor or angiotensin II receptor hanna? yes Lisinopril Peripheral Neuropathy: Negative Denies symptoms associated with neuropathy (numbness and/or tingling) Autonomic Neuropathy: Positive Hypoglycemia unawareness. Senses low BG at <70mg/dl. Other: Hyperlipidemia: Positive Currently taking: eztemibe (Zetia). LFT's WNL Lab Results Component Value Date AST 9 04/03/2023 ALT 20 04/03/2023 No results found for: EXTCHOL, EXTTRIG, EXTHDL, EXTLDLCALC, EXTLDL Hypertension: Positive. Currently taking: amlodipine (Norvasc), clonidine (Catapres), hydrochlorothiazide (HCTZ), and lisinopril (Prinivil) BP: (!) 148/98 Cardiac: Negative Experiencing chest pain No . 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 History of foot ulceration: No History of amputation: No Bunion to right foot. Thyroid: Lab Results Component Value Date TSH 1.90 04/03/2023 Negative Other: Plan: 1. Rx changes: Continue current regimen Humulin 70/30: 12 units at breakfast; 8 units at supper Metformin 1000 mg twice daily 2. Education: Reviewed ABCs of diabetes management (respective goals in parentheses): A1C (7.0-8.0), blood pressure (<130/80), and cholesterol (LDL <100). 3. Compliance at present is estimated to be good. Efforts to improve compliance (if necessary) will be directed at increased exercise. Also, will be directed at dietary modifications: Limit starches, carbohydrates and concentrated sugar sources 4. Follow up: 6 months 5. Record blood sugar readings as instructed. Call if BG consistently <70 or >250. [phone] Patient has been checking blood glucoses 2 times daily for the past 90 days. Patient needs to continue checking blood glucoses 2 times daily. Blood glucose readings are used to adjust medication or insulin doses for meals, monitor dietary compliance, and adjust for high or low blood glucoses by patient on a daily basis. Blood glucose readings are reviewed at office visits for adjustment in medication regimen and assistance with dietary management, and other self-management issues including exercise, etc. Prognosis: Good. Duration of need for diabetes testing equipment: Permanent #100 strips/month prescribed. 6. Bring blood sugar meter to follow up appointment. Orders Placed This Encounter Procedures Comprehensive Metabolic Panel Hemoglobin A1c TSH T4, Free Electronically Signed by: Vaishali Mendez CNP documented in this encounter [facility] 12-08-2022 History of Present illness Narrative Images from the original note were not included. Patient ID: Hilaria Lyons is a 72 y.o. female 1950 Subjective: Hilaria Lyons presents for follow-up of Type 2 diabetes Patient has had diabetes for 12 years. Diagnosed in 2009 Patient has taken Insulin for 1 years Hilaria Lyons is a 72 y.o. year old female with hx of DM, HTN, meningioma, who was brought to the hospital on 11/20 after she fell and and felt too weak to get up. She was found on the floor by her neighbor who called the squad; BG 55, which resolved after dextrose infusion. Here she had hypothermia, and received Abx for possible sepsis but that was felt to be less likely. TSH is normal. Outpatient Medications Marked as Taking for the 12/08/22 encounter (Office Visit) with Vaishali Mendez CNP: amLODIPine (NORVASC) 10 MG tablet, Take 1 (one) tablet (10 mg total) by mouth daily . mvoonbc-fwmlconcdcoxn-bblfumii (EXCEDRIN MIGRAINE) 250-250-65 mg per tablet, Take 1 (one) tablet by mouth every 6 (six) hours as needed for pain . carvediloL (COREG) 25 MG tablet, Take 1 (one) tablet (25 mg total) by mouth 2 (two) times a day . cloNIDine HCL (CATAPRES) 0.1 MG tablet, Take 1 (one) tablet (0.1 mg total) by mouth 4 (four) times a day . levETIRAcetam (KEPPRA) 500 MG tablet, Take 1 (one) tablet (500 mg total) by mouth 2 (two) times a day . lisinopriL-hydrochlorothiazide (PRINZIDE,ZESTORETIC) 20-12.5 mg per tablet, Take 2 (two) tablets by mouth daily with lunch . metFORMIN (GLUCOPHAGE) 1000 MG tablet, Take 1 (one) tablet (1,000 mg total) by mouth 2 (two) times a day with meals . multivitamin (THERAGRAN) per tablet, Take 1 (one) tablet by mouth daily (Women's 50+ with soy) . pen needle, diabetic 31 gauge x 5/16 Ndle, Use for insulin injection BID Dx E11.65 . Review of Systems: Review of Systems Constitutional: Negative for fatigue and unexpected weight change. Eyes: Negative for visual disturbance. Respiratory: Negative for cough and shortness of breath. Cardiovascular: Negative for chest pain and leg swelling. Gastrointestinal: Negative for abdominal pain, constipation, diarrhea, nausea and vomiting. Endocrine: Negative for polydipsia, polyphagia and polyuria. Genitourinary: Negative for frequency and urgency. Skin: Negative for wound. Neurological: Negative for numbness and headaches. Psychiatric/Behavioral: Negative for agitation and sleep disturbance. The patient is not nervous/anxious. The following portions of the patient's history were reviewed and updated as appropriate: allergies, current medications, past family history, past medical history, past social history, past surgical history and problem list. Objective: BP 117/73 Pulse 99 Ht 5' 1 Wt 76.2 kg (168 lb) BMI 31.74 kg/m Wt Readings from Last 3 Encounters: 12/08/22 76.2 kg (168 lb) 11/21/22 77.1 kg (170 lb) 06/06/22 80.3 kg (177 lb 0.5 oz) Physical Exam: Physical Exam General: alert, appears stated age and cooperative Eyes: conjunctivae/corneas clear. PERRL, EOM's intact. Neck: no adenopathy, supple, symmetrical, trachea midline. Thyroid: No thyromegaly appreciated Lung: clear to auscultation bilaterally Heart: regular rate and rhythm, S1, S2 normal, no murmur, click, rub or gallop Extremities: extremities normal, atraumatic, no cyanosis or edema Feet: Dry skin, Bilateral Feet: warm, good capillary refill, bunions, and normal DP. Monofilament exam Normal , bilateral lower extremities. Neuro: normal without focal findings, mental status, speech normal, alert and oriented x3 and AFSANEH Laboratory Review: BP 117/73 Pulse 99 Ht 5' 1 Wt 76.2 kg (168 lb) BMI 31.74 kg/m Lab Results Component Value Date HGBA1C 11.9 (H) 11/17/2022 Glucose (mg/dL) Date Value 11/22/2022 164 (H) 06/06/2022 372 (H) 06/06/2022 372 (H) Creatinine (mg/dL) Date Value 11/22/2022 0.56 (L) 01/01/2018 0.58 (L) Lab Results Component Value Date CHOL 187 06/07/2022 TRIG 97 06/07/2022 HDL 62 06/07/2022 LDLCALC 106 06/07/2022 Lab Results Component Value Date TSH 1.10 11/20/2022 Lab Results Component Value Date WBC 9.03 11/22/2022 HGB 14.1 11/22/2022 HCT 41.8 11/22/2022 MCV 88.4 11/22/2022 PLT 164 11/22/2022 Date: 11/17/22 Hgb A1c: 11.9% Assessment/Plan: Dx: 1. Type 2 diabetes mellitus with hyperglycemia, with long-term current use of insulin (HCC) 2. Primary hypertension Type 2 diabetes, under improving control Currently taking: Metformin 1000 mg twice daily Humulin 70/30: 8 units at breakfast; 6 units at supper Current Hemoglobin A1C= Lab Results Component Value Date HGBA1C 11.9 (H) 11/17/2022 HGBA1C 13.7 (H) 06/06/2022 HGBA1C 11.1 (H) 04/18/2020 Weight trend: has decreased 70 lbs. Current diet: avoiding concentrated sugars Current exercise: none Current monitoring regimen: home blood tests - 2 times daily Home blood sugar records: Fasting B-201 Pre-lunch BG: Pre-supper B-197 Bedtime BG: Any episodes of hypoglycemia? no NOTES: Hospitalized with hypoglycemia 11/20/22. Has been taking BID 70/30 and metformin. Was on glimepiride, but stopped at the hospital. 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 Diaz Other Ophthalmologic Conditions: S/P Right cataract extraction with IOLI and S/P Left cataract extraction with IOLI Nephropathy: Negative Creat: 0.56 11/22/22. Lab Results Component Value Date CREATININE 0.56 (L) 11/22/2022 EXTEGFR >=60 01/01/2018 EXTEGFRAFAME >=60 01/01/2018 Microlbumin/creat ratio: No results found for: EXTMICROALBC Is patient on NGOZI inhibitor or angiotensin II receptor hanna? yes Lisinopril Peripheral Neuropathy: Negative Denies symptoms associated with neuropathy (numbness and/or tingling) Autonomic Neuropathy: Positive Hypoglycemia unawareness. Senses low BG at <70mg/dl. Other: Hyperlipidemia: Positive Currently taking: eztemibe (Zetia). LFT's WNL Lab Results Component Value Date AST 27 11/20/2022 ALT 41 11/20/2022 No results found for: EXTCHOL, EXTTRIG, EXTHDL, EXTLDLCALC, EXTLDL Hypertension: Positive. Currently taking: amlodipine (Norvasc), clonidine (Catapres), hydrochlorothiazide (HCTZ), and lisinopril (Prinivil) BP: 117/73 Cardiac: Negative Experiencing chest pain No . 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 History of foot ulceration: No History of amputation: No Bunion to right foot. Thyroid: Lab Results Component Value Date TSH 1.10 11/20/2022 Negative Other: Plan: 1. Rx changes: Continue current regimen Humulin 70/30: 8 units at breakfast; 6 units at supper Metformin 1000 mg twice daily 2. Education: Reviewed ABCs of diabetes management (respective goals in parentheses): A1C (7.0-8.0), blood pressure (<130/80), and cholesterol (LDL <100). 3. Compliance at present is estimated to be good. Efforts to improve compliance (if necessary) will be directed at increased exercise. Also, will be directed at dietary modifications: Limit starches, carbohydrates and concentrated sugar sources 4. Follow up: 4 months 5. Record blood sugar readings as instructed. Call if BG consistently <70 or >250. [phone] Patient has been checking blood glucoses 2 times daily for the past 90 days. Patient needs to continue checking blood glucoses 2 times daily. Blood glucose readings are used to adjust medication or insulin doses for meals, monitor dietary compliance, and adjust for high or low blood glucoses by patient on a daily basis. Blood glucose readings are reviewed at office visits for adjustment in medication regimen and assistance with dietary management, and other self-management issues including exercise, etc. Prognosis: Good. Duration of need for diabetes testing equipment: Permanent #100 strips/month prescribed. 6. Bring blood sugar meter to follow up appointment. Orders Placed This Encounter Procedures Comprehensive Metabolic Panel Hemoglobin A1c T4, Free TSH Lipid Panel Microalbumin/Creatinine Ratio, UR Random CBC and Differential Electronically Signed by: Vaishali Mendez CNP documented in this encounter [facility] 06-08-2022 Hospital Discharge instructions Elisa Collins MD - 06/08/2022 10:56 AM EST Check blood glucose 2 times a day before breakfast and supper. Record blood glucoses and report glucoses to Dr. Collins's office at [phone] once a week for insulin dose adjustment. Call sooner if blood glucoses are consistently running less than 80 or greater than 250. Call to schedule follow up appointment with Dr. Collins at [phone]. Appointment should be in 4-6 weeks Keiry Birmingham OT - 06/07/2022 11:21 AM EST Please issue to pt at discharge: CHIROPRACTIC NEUROLOGIST documented in this encounter [facility] 06-08-2022 History of Present illness Narrative Neurology Inpatient Follow Up Note [facility] Date of Service: 06/08/22 Service Type: Inpatient Consultation follow up Patient: Hilaria Lyons Date of : 1950 (72 y.o.) Referring Provider: Refer to consult order in electronic medical record PCP: Jaime Shine MD Assessment ASSESSMENT: Hilaria Lyons is a 72 y.o. female who presented to [facility] on 06/06/2022 with slurred speech. Patient presented with acute onset of slurred speech, right-sided weakness. She did have similar symptoms approximately 1 week ago which resolved within a short period. On exam presently she does have mild dysarthria and a subtle questionable flattening of right nasolabial fold, but symptoms do appear to have improved substantially since arrival. Initially given the presentation I felt more likely stroke but the MRI reveals no ischemic insults, but rather she does have what looks to be a meningioma which abuts the cortex in the left frontoparietal region. There is no significant cerebral edema. This could cause some cortical irritability and cause small partial seizures, which would explain why she had two similar events (typically vascular events are not stereotyped). TIA is technically possible but she has some persistent speech deficits still which would not be the case with a transient vascular occlusion (if the deficits were due to ischemia, this should have showed up on the MRI). It did occur in the setting of hyperglycemia and UTI so this could have been a trigger. We opted for a trial of Keppra for now. She will need a repeat MRI brain in 2-3 months with and without contrast to ensure stability of the meningioma. Ultimately may require neurosurgical intervention but we will get a repeat image and see how she does on Keppra monotherapy for now. She should likely remain on aspirin/statin due to her cardiovascular risk factors (poorly controlled hypertension, diabetes, with LDL suboptimal at 106). 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 Fabian Mccabe MD Staff Neurologist [facility] [address] [id number], [facility] [address] Clinic Fax: [phone] 06/08/22 Parts of this note may have been dictated using Nuance Dragon, a speech-recognition software. Syntax errors and sound-alike substitutions which may escape proofreading could be present. In such instances, the actual meaning can be extrapolated from the context. Subjective SUBJECTIVE: Chief Complaint/Reason for Consult: Slurred speech History of Present Illness: Hilaria Lyons is a 72 y.o. female who presented on 06/06/2022 for slurred speech. Neurology is consulted for possible stroke. Ms. Lyons reports that she was in her usual state of health until Thursday, 05/30, when she had a transient episode of slurred speech and right-sided weakness. She tells me that this lasted 15 to 20 seconds before resolving completely. She did not seek medical attention at the time. Here, the history differs slightly from what was noted in the initial stroke alert note. She told me today that on Thursday, 06/04, she began having slurred speech and some mild right hand weakness. She did not tell anyone about it, but on 06/06 her daughter found out and insisted she go to the hospital. On arrival she had severe dysarthria and right facial droop. No right hand weakness or other right-sided weakness was seen. Initial blood sugars were in the 600s and blood pressures after arrival ranged as high up as 231/107. Blood sugars have come down to 104 this morning with blood pressures in the 160s over 80s Today she has improved but is not yet back to baseline. Still some difficulty with her speech. She also reports some difficulty with concentration and memory that is new from her baseline. At baseline she is fully independent in all ADLs. She has no history of stroke. No family history of stroke. She does have a history of poorly controlled hypertension and diabetes. She says that previously her A1c was up to 13, but improved to 7.9 on her last check with dietary changes. Unfortunately her A1c here is back up to 13.7. She reports that she takes a baby aspirin at home. Interval History 06/08/22: No acute events overnight. Feeling well this morning. She says her speech continues to improve although it is not fully back to normal. As discussed in my quick note yesterday, the MRI did not show any acute stroke, but rather showed a left parietal meningioma which abuts the cortex. I discussed with her that this could represent seizures and she was agreeable to start Keppra empirically. Blood pressures improved overnight, blood sugars much better today. Review of systems: All systems were reviewed and found to be negative except for those mentioned in the HPI. Review of data including medical histories, allergies and medications: Updates made where appropriate based on new information from patient/collateral Medical surgical social and family histories: She has a past medical history of Arthritis, Diabetes mellitus (HCC), Hypertension, and Obesity. She has a past surgical history that includes Cholecystectomy; Tubal ligation (1986); Cataract extraction, bilateral; and Eye surgery (Bilateral, 2017). She family history includes Cancer in her father; Diabetes in her mother; Heart disease in her mother. She reports that she has never smoked. She has never used smokeless tobacco. She reports that she does not drink alcohol and does not use drugs. Allergies: Allergies: Coolidge, Poison rhonda extract, Poison oak extract, and Penicillins MEDICATIONS: WERE REVIEWED AND CHECKED FOR ALLERGIES AND INTERACTIONS (IN EMR). Objective OBJECTIVE: Physical Examination: BP (!) 176/90 (BP Location: Right arm, Patient Position: Lying) Pulse 86 Temp 98 F (36.7 C) (Oral) Resp (!) 21 Ht 5' 1 Wt 80.3 kg (177 lb 0.5 oz) SpO2 95% BMI 33.45 kg/m GENERAL: General Appearance: Resting comfortably in bed in NAD HEENT: Normocephalic. No conjunctival injection. Ears appear normal. No substantial sinus drainage. See below for vision/hearing Neck: Supple, no tenderness, preserved ROM. Respiratory Effort: Normal Extremities: No edema Skin: Significantly dry, cracked skin in both feet with scaling present. No ulcers. MSK: Arthritic changes of both knees Neurological examination: MENTAL STATUS: Alertness, Attention Span & Concentration: Normal Language: Normal, reading, repetition, naming were intact. Speech: Mild mixed dysarthria, easily understood, occasional hesitations and pauses. Maybe a bit more fluent today. Orientation: Oriented to person, place, time/date, and situation Memory, Recent & Remote: Only mild difficulty Fund of Knowledge: Normal CRANIAL NERVES: II - Visual [place]: Normal II, III: Pupils: PERRL, no RAPD III, IV, : Eye Movements: Normal (EOMI, No ptosis, No nystagmus) V - Facial Sensation: Normal VII: Face Symmetry & Strength: Normal VIII - Hearing: Normal to finger rub b/l IX, X - Palate: Normal, elevates symmetrically XI - Shoulder Shrug: Normal XII - Tongue Protrusion: Normal, symmetric MOTOR: Muscle Strength Right Left 5 Shoulder Abduction (Deltoid) 5 5 Elbow Flexion (Biceps) 5 5 Elbow Extension (Triceps) 5 5 Wrist Flexion 5 5 Wrist Extension 5 5 Finger Abduction (Interossei) 5 Right Left 5 Hip Extension 5 5 Hip Flexion (Iliopsoas) 5 5 Knee Extension (Quads) 5 5 Knee Flexion (Hamstrings) 5 5 Dorsiflexion (Anterior Tibialis) 5 5 Plantar Flexion (Gastrocnemius) 5 Normal Bulk and Tone, no atrophy MOTOR BEJARANO: 5 Normal (Normal Power) 4 Mild Weakness (Movement against moderate resistance over a full range of motion) 3 Moderate Weakness (Movement against gravity only over almost full range of motion) 2 Severe Weakness (Movement with gravity eliminated over almost full range of motion) 1 Trace Movement (Contraction visible or palpable without effective movement of the joint) 0 No Movement (No contraction visible or palpable) MARY JO Unable to Assess SENSATION: Fine Touch: Normal Pinprick: Decreased slightly in feet bilaterally symmetrically in stocking pattern Proprioception: Normal Vibration: Decreased feet bilaterally Temperature: Normal REFLEXES: Right Reflexes Left 2+ Biceps 2+ 2+ Triceps 2+ 2+ Brachioradialis 2+ 1+ Patellar 1+ 0 Achilles 0 Down Plantar Response (Babinski) Down REFLEXES BEJARANO: 4+ Sustained Clonus 3+ Brisk 2+ Normal 1+ Diminished 0 Absent MARY JO Unable to Assess COORDINATION: Coordination Tqryqz-ch-Pnap: A little slow and cautious but no overt ataxia is appreciated Holley Finger taps: normal Coordination Drjo-Oqga-Oswp: normal Diadochokinesis: normal STANCE AND GAIT: Base/Stance: Mildly widened base Gait: Slightly unsteady that without obvious focal weakness, had to hold onto me to stand Gait Aid Used During Exam: None Gait Assistance Required During Exam: None MOVEMENT DISORDERS EXAMINATION: Tremor - no tremors noted Bradykinesia - None Rigidity - None Dyskinesia/Choreoathetosis - None Dystonia/Myoclonus/Tics - None DIAGNOSTIC TESTING SUMMARY: Pending Lab and Radiology Results Order Current Status Urine Aerobic Culture Preliminary result Resulted Testing: (MRI/CT/XR, EEG, EMG, CSF, Cardiac, Labs) MRI brain w/o: no acute stroke but there is a left parietal area meningioma which abuts the cortex in that area, without significant edema. No hemorrhage. Mild white matter changes in the background but no old strokes. CT brain with moderate diffuse white matter disease and mild atrophy, along with vascular calcifications noted. 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 No hemorrhage A1c 13.7 LDL 106 Attestation: Discussed risks, benefits and alternatives regarding plan with patient/family/caregivers and answered the questions. I independently reviewed radiology images and summarized in this note with annotations and screenshots wherever appropriate. Time statement: A total of 35 minutes were spent on this encounter either in the patient's room or on the patient's hospital unit and over 50% of that time was spent on [id number] counseling and/or coordination of care. This includes discussions with patient/family as well as with consulting care providers, regarding clinical course, prognosis, treatment alternatives, expected outcomes of medications and their side effects. Patient ID: Patient Name: Hilaria Lyons Admit Date: 06/06/2022 MR #: [id number] : 1950 Current location: [facility] Physicians: Jaime Shine MD (Family); Dr. London (Referring) Reason for consult: Type 2 diabetes out of control Assessment/Plan: Dx: Type 2 diabetes, under inadequate control Currently taking as outpatient: Metformin 1000 mg twice daily Glimepiride 4 mg twice daily Current Hemoglobin A1C= Lab Results Component Value Date HGBA1C 13.7 (H) 06/06/2022 HGBA1C 11.1 (H) 04/18/2020 HGBA1C 11.2 (H) 01/01/2018 NOTES: 06/07 BG and labs reviewed. Na 141, K 3.5, Creat 0.52, eGFR 99, Ca 9.1, WBC10.86, Hgb 14.7, Hct 43.3, Plt 182k. Will convert to QID insulin regimen. 06/08 BG and labs reviewed. Na 142, K 3.7, CO2-23, Creat 0.48, WBC 10.14, Hgb 15.1, Hccr 46.0, Plt 187k. She feels well and ready to go home. Discussed HgbA1c 13.7%, goal 7-8%. We reviewed insulin pen use and discussed 70/30 insulin with her. She was able to put pen needle on sample pen. Provided with Humalog 75/25 pen due to discharge on , with pharmacy not open. Advised her that she could get Novolin reli-on 70/30 pens at [facility], which are more affordable for her. At follow up in office, can apply for patient assistance from [employer] or [employer]. 25 minutes spent with pt today Blood Glucoses: 06/06 448---444 06/07 230---204---344---149---120 06/08 76---103 Plan: 1. Rx changes: Humalog insulin: 16 units at breakfast; 12 units at lunch; 12 units at supper Lantus insulin: 24 units at bedtime Humalog sliding scale Metformin 1000 mg twice daily Glimepiride 4 mg twice daily Needs outpatient podiatry care 06/08 Patient to be discharged today. Plan: start Novolin Reli-on 70/30 insulin available at [facility], 20 U AM breakfast/16 U PM before dinner. Continue metformin, but stop gllimepiride. Check BG BID and record; report to Dr. Collins office q week until follow up. Call to schedule follow up appointment with Dr. Collins at [phone]. Appointment should be in 4-6 weeks. . 2. Education: Reviewed ABCs of diabetes management (respective goals in parentheses): A1C (7.0-8.0), blood pressure (<130/80), and cholesterol (LDL <100). Referral to Diabetes Education Referral to Nutrition therapy Subjective: Brief HPI: Patient is a 72 year old female with hx of Type 2 DM, HTN, hyperlipidmia, who presented to ED with slurred speech and right arm and hand weakness. 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 She was started on IV insulin and IV hydration, with improvement in BG. She states she was prescribed 20 U Lantus one year ago and she did take it; however, 6 months ago was not able to get a refill and did not follow through with her PCP to see about a refill.She does know how to take insulin. Reports her right sided weakness is better. Patient has had diabetes for 10-12 years. Patient is currently taking Metformin and glimepiride. Currently the patient is receiving IV insulin. Blood sugar levels since admission have been ranging from 204-660 mg/dL. Current monitoring regimen: home blood tests - unsure Complications of diabetes include: Retinopathy: Negative Nephropathy: Negative Peripheral Neuropathy: Negative Autonomic Neuropathy: Negative Admission labs 06/06/2022 sodium 134, potassium 4.1, glucose 660, CO2 27, creatinine 0.84, estimated GFR 74, calcium 10.2, WBC 10.23, hemoglobin 16.1, hematocrit 45.1, platelet count 157,000, urinalysis greater than 500 glucose trace ketones 9 WBCs Allergies: Allergies Allergen Reactions Coolidge Hives Poison Rhonda Extract Poison [place] Extract Unknown Penicillins GI Intolerance Home Medications: Outpatient Medications Marked as Taking for the 06/06/22 encounter (Hospital Encounter): ACETAMINOPHEN ORAL, Take 500 mg by mouth every 6 (six) hours as needed . amLODIPine (NORVASC) 10 MG tablet, Take 1 (one) tablet (10 mg total) by mouth daily . carvediloL (COREG) 25 MG tablet, Take 1 (one) tablet (25 mg total) by mouth 2 (two) times a day . cholecalciferol, vitamin D3, 50 mcg (2,000 unit) Tab, Take 1 (one) tablet (2,000 Units total) by mouth . cloNIDine HCL (CATAPRES) 0.1 MG tablet, Take 1 (one) tablet (0.1 mg total) by mouth 4 (four) times a day . glimepiride (AMARYL) 4 MG tablet, Take 1 (one) tablet (4 mg total) by mouth 2 (two) times a day . ibuprofen (ADVIL,MOTRIN) 200 MG tablet, Take 2 (two) tablets (400 mg total) by mouth every 6 (six) hours as needed for pain . lisinopriL-hydrochlorothiazide (PRINZIDE,ZESTORETIC) 20-12.5 mg per tablet, Take 2 (two) tablets by mouth daily . metFORMIN (GLUCOPHAGE) 1000 MG tablet, Take 1 (one) tablet (1,000 mg total) by mouth 2 (two) times a day with meals . multivitamin (THERAGRAN) per tablet, Take 1 (one) tablet by mouth daily . Current Medications: amLODIPine 5 mg Oral Daily aspirin 325 mg Oral Daily atorvastatin 40 mg Oral Nightly carvediloL 6.25 mg Oral BID ceFAZolin (ANCEF) IVPB 1,000 mg Intravenous Q12H enoxaparin (LOVENOX) injection 40 mg Subcutaneous Daily glimepiride 4 mg Oral BID insulin glargine 24 Units Subcutaneous Nightly lispro insulin 0-15 Units Subcutaneous at bedtime insulin lispro 0-30 Units Subcutaneous QAM AC insulin lispro 0-30 Units Subcutaneous Daily before lunch insulin lispro 0-30 Units Subcutaneous Before dinner levETIRAcetam 500 mg Oral BID lisinopril-hydrochlorothiazide (ZESTORETIC 20/12.5) combination tablet Oral Daily metFORMIN 1,000 mg Oral BID with meals multivitamin 1 tablet Oral Daily potassium chloride SA 20 mEq Oral Once senna-docusate 1 tablet Oral BID sodium chloride (PF) 5 mL Intravenous Q8H DAMARIS acetaminophen, aluminum-magnesium hydroxide-simethicone, bisacodyL, labetalol OR hydrALAZINE, magnesium hydroxide, melatonin, morphine injection, nalOXone AND Notify physician AND naloxone, nitroGLYCERIN, ondansetron OR ondansetron, oxyCODONE-acetaminophen, senna, Saline lock IV AND sodium chloride (PF) AND sodium chloride (PF) AND sodium chloride 0.9 %, traZODone Review of Systems: Review of Systems Constitutional: Positive for fatigue. Eyes: Negative for visual disturbance. Respiratory: Negative for shortness of breath. Cardiovascular: Negative for chest pain. Gastrointestinal: Negative for constipation, diarrhea, nausea and vomiting. Endocrine: Positive for polydipsia. Skin: Negative for wound. Dry skin and onychomycosis toenails Neurological: Positive for speech difficulty. Negative for weakness. Psychiatric/Behavioral: Negative for sleep disturbance. History: Past Medical History: Diagnosis Date Arthritis CVA (cerebrovascular accident) ([facility]) 06/06/2022 Diabetes mellitus (HCC) Hypertension Obesity Past Surgical History: Procedure Laterality Date CATARACT EXTRACTION, BILATERAL CHOLECYSTECTOMY EYE SURGERY Bilateral 2017 cataracts TUBAL LIGATION 1987 Family History Problem Relation Age of Onset Heart disease Mother Diabetes Mother Cancer Father Social History Tobacco Use Smoking status: Never Smokeless tobacco: Never Vaping Use Vaping Use: Never used Substance Use Topics Alcohol use: Never Drug use: Never The following portions of the patient's history were reviewed and updated as appropriate: allergies, current medications, past family history, past medical history, past social history, past surgical history and problem list. Objective: BP (!) 144/68 (BP Location: Right arm, Patient Position: Lying) Pulse 78 Temp 97.8 F (36.6 C) (Oral) Resp (!) 21 Ht 5' 1 Wt 80.3 kg (177 lb 0.5 oz) SpO2 95% BMI 33.45 kg/m Wt Readings from Last 3 Encounters: 06/06/22 80.3 kg (177 lb 0.5 oz) 06/07/22 80.3 kg (177 lb 0.5 oz) 05/29/20 81.6 kg (180 lb) Physical Exam: Physical Exam Vitals reviewed. Constitutional: Appearance: Normal appearance. She is well-developed. HENT: Head: Normocephalic and atraumatic. Cardiovascular: Rate and Rhythm: Normal rate and regular rhythm. Heart sounds: Normal heart sounds. No murmur heard. Pulmonary: Effort: Pulmonary effort is normal. No respiratory distress. Breath sounds: Normal breath sounds. No wheezing or rales. Skin: General: Skin is warm and dry. Findings: No erythema. Comments: Thick dry skin of both feet, with onychomycosis. Neurological: Mental Status: She is alert and oriented to person, place, and time. Laboratory Review: BP (!) 144/68 (BP Location: Right arm, Patient Position: Lying) Pulse 78 Temp 97.8 F (36.6 C) (Oral) Resp (!) 21 Ht 5' 1 Wt 80.3 kg (177 lb 0.5 oz) SpO2 95% BMI 33.45 kg/m Lab Results Component Value Date HGBA1C 13.7 (H) 06/06/2022 Glucose (mg/dL) Date Value 06/08/2022 76 06/06/2022 372 (H) 06/06/2022 372 (H) Creatinine (mg/dL) Date Value 06/08/2022 0.48 (L) 01/01/2018 0.58 (L) Lab Results Component Value Date CHOL 187 06/07/2022 TRIG 97 06/07/2022 HDL 62 06/07/2022 LDLCALC 106 06/07/2022 Lab Results Component Value Date TSH 0.99 04/18/2020 No results found for: FREET4 Lab Results Component Value Date WBC 10.14 06/08/2022 HGB 15.1 06/08/2022 HCT 46.0 06/08/2022 MCV 88.5 06/08/2022 PLT 187 06/08/2022 This SmartLink has not been configured with any valid records. This SmartLink has not been configured with any valid records. Laboratory and Additional Data Reviewed: Laboratory 06/08/22 7:16 AM Radiology 06/08/22 7:16 AM Medications 06/08/22 7:16 AM Transcriptions 06/08/22 7:16 AM Thank you for this consultation, we will continue to follow this patient with you. Elisa Collins MD [facility] PROGRESS NOTE Assessment and Plan Hilaria Lyons is a 72 y.o. female patient of Jaime Shine MD with past medical history of hypertension, hyperlipidemia, diabetes mellitus, CVA, moderate obesity body mass index 33.4 presented with slurred speech Slurred speech to rule out CVA Evaluated by telemetry neurologist Aspirin Statin Speech evaluation/PT OT and social service consult for discharge plan TSH Hemoglobin A1c Vitamin B12 folate levels Neurology consult Defer MRI order to neurology CT head showed no acute intracranial abnormality. Atherosclerotic calcification and chronic microvascular ischemia CT angiogram head and neck showed No large vessel occlusion. A focal moderate stenosis each in the distal right P2 and left P3. Carotids and vertebral arteries show no significant stenosis or dissection. MRI with no acute ischemia but with left parietal extradural mass likely meningioma with mass effect that is minimal on adjacent brain parenchyma without substantial edema Neurology consulted-as no stroke noted on MRI, recommend continuation of aspirin, restart blood pressure medications Stopping Plavix as no obvious stroke at this time Concern for possible seizures versus neurologic effect of meningioma Neurology to start Kera Accelerated hypertension Allow permissive hypertension for now Hold antihypertensive medication (Norvasc 10 mg daily, clonidine point 1 mg 4 times daily, hydralazine 25 mg 3 times daily, lisinopril/HCTZ 20/12.5 mg daily) IV hydralazine and labetalol as needed Restart amlodipine in a.m. Uncontrolled diabetes mellitus with hyperglycemia Blood sugar on admission 660 Insulin gtt. closely monitor electrolytes. Diabetic diet Hemoglobin A1c Consider switching to long-acting insulin in the next 12 hours. Acute lower urinary tract infection Urine culture IV Rocephin Changed to cefazolin Hirsutism Follow-up with endocrinology as an outpatient Moderate obesity Body mass index 33.45 Encouraged weight loss and lifestyle modification Family Contact Information Code Status: Full Code - Unverified Quality Measures DVT Prophylaxis: Lovenox and mobility Callahan Catheter: None Disposition Discharge Location: Home Estimated Discharge Date: 06/08 Outpatient Testing: TBD Subjective Patient doing well. She states her dysarthria has improved significantly and is almost back to normal. She denies any weakness anywhere at this time. She notes that it lasted briefly, the weakness that she had when she first came in. She denies previous stroke. She notes that at some point she was told she might have an abnormal rhythm and was put on Eliquis briefly and taken off. Objective BP (!) 189/69 (BP Location: Right arm, Patient Position: Lying) Pulse 93 Temp 98.2 F (36.8 C) (Oral) Resp (!) 21 Ht 5' 1 Wt 80.3 kg (177 lb 0.5 oz) SpO2 96% BMI 33.45 kg/m Physical Examination General Appearance: alert; chronically ill appearing; in no acute distress HEENT: Head- normocephalic; Eyes- EOMI, sclera anicteric; Ears- hearing intact; Nose- no nasal discharge; Throat- mucous membranes moist Cardiovascular: regular rate and rhythm; normal S1, S2; no murmurs, rubs, clicks or gallops; no peripheral edema Respiratory: lungs clear to auscultation; without wheezes, rales or rhonchi; on room air Abdomen: soft, non-tender, non-distended; positive bowel sounds Neurological: oriented x 3; mild dysarthria and some word finding difficulties in her speech; no focal findings or movement disorder noted Musculoskeletal: no significant deformity or tenderness to palpation Skin: Ecchymosis and excoriations, onychomycosis of toenails and dry skin Psych: normal mood and affect Results/Medications Reviewed 06/07/2022 3:19 PM Laboratory, Radiology, Medications, and Transcriptions Spiritual Care Progress Note Completed by: Silvina Arambula Person(s) Present During this Visit: Healthcare Provider, Patient Not Available Time Spent in Direct Patient Care: 15 Narrative: Responded to Stroke Alert. Unable to meet with pt as they were receiving medical care at this time. No family present. Pastoral Care team will remain available to support patient and family PRN. 06/06/22 1830 Visit Background Visit With Healthcare Provider;Patient Not Available Visit By Staff Roguer Visit Progression Attempt Visit Requested By Roguer Initiated Visit Source Automated Page Visit Type Crisis Visit Visit Circumstances and Events Stroke Alert Visit Length (minutes) 15 Patient's Response to Pastoral Care (Did not participate) Visit Planning PRN Spiritual Assessment Not assessed during visit Voodoo Assessment Not assessed during this visit Family assessment provided? Unable to asess during this visit Signature: Silvina Arambula MDiv Staff Roguer [facility]: On-Call / Office / Alexis On-Call Roguer [place]: Roguer Hotline / Vocjoe On-Call Roguer She/Her/Hers documented in this encounter [facility] 06-08-2022 Note Formatting of this n ote might be different from the original. PHYSICAL THERAPY VISIT VARIANCE NOTE Spoke to pt and she reports independence with transfers and gait denying need for PT needs at this time. Will DC PT. [facility] 06-08-2022 Miscellaneous Notes PHYSICAL THERAPY VISIT VARIANCE NOTE Spoke to pt and she reports independence with transfers and gait denying need for PT needs at this time. Will DC PT. MRI reviewed. There is no acute stroke but there is a left parietal area meningioma which abuts the cortex in that area, without significant edema. No hemorrhage. Given the transient nature of the symptoms, unlikely to be from physical compression. More likely cortical irritability with small focal seizures, especially in light of her significant hyperglycemia and probable UTI which can cause cortical irritability already. TIA is possible, but less likely given the duration of symptoms without any evidence of ischemic changes at all on MRI. We discussed the case. We opted to proceed with initiating Keppra now despite the potential that it could be TIA. It is generally low-risk to try it and we can always consider weaning it off in the outpatient setting. Long-term we will need a repeat MRI, this time with and without contrast, in about 2-3 months. A routine EEG is unlikely to significantly change my management, this can be considered in the outpatient setting especially if events continue. There is no indication for DAPT given lack of ischemic findings. She should continue aspirin, which I have weight-adjusted to full strength (325mg daily). Continue atorvastatin given her overall cardiovascular risk profile, LDL is above ideal goal at 106. She should be monitored overnight to control blood sugar and blood pressure. No need for autoregulation given no stroke seen. I have resumed lower doses of her home amlodipine and lisinopril/hydrochlorothiazide; may add other home agents depending on how her BP does. ED Attestation: I have reviewed the Advanced Practice Provider's ([facility]'s) documentation. In addition, I have personally introduced myself to the patient (face to face), and have taken her history and performed an examination. I agree with the physical findings, management, clinical impression and disposition. I did perform the substantive portion of this patient's encounter, including all aspects of the MDM. In brief, Hilaria is a 72 y.o. female who presents with a chief complaint of Stroke Alert. Patient been having some facial droop and difficulty speaking over the last for 5 hours. Had a similar episode yesterday but it persisted today so eventually called the ambulance came in for evaluation. Arrival here very pleasant lady but does have difficulty speaking. Stroke alert was initiated. On CT it does appear that she may have had a small stroke but no evidence of hemorrhage at this time. Patient is not on blood thinners. Known to be diabetic with a glucose without evidence of DKA. Her sugar came back at about 660. Patient states she has been out of her insulin for several days. She has been try to reach out to her insurance company and send her new insulin supplies and medication but they have not as of yet. She was not surprised that her glucose was over 600 today. Again clinically not in DKA. Patient was given a dose of regular insulin as well some IV hydration. Also urinalysis came back showing evidence of urinary tract infection. Urine culture was obtained and a dose of Rocephin was given as well. Regarding the stroke, aspirin was given and patient will be admitted to hospital team with consult to neurology for further evaluation work-up at this time. (Please note that portions of this note have been completed with a voice recognition software. Efforts were made to correct any errors, but occasionally words are mis-transcribed.) Associated Order(s): ECG 12 Lead ECG 12 Lead Date/Time: 06/06/2022 7:02 PM Performed by: Jaime Coats DO Authorized by: Jaime Coats DO Interpreted by ED attending physician Comparison: not compared with previous ECG Previous ECG: no previous ECG available Rhythm: sinus rhythm BPM: 72 Conduction: conduction normal ST Segments: ST segments normal T Waves: T waves normal Critical Care Time: I personally saw this patient and independently provided 30 minutes of non-concurrent, critical care time, out of the total shared critical care time provided. This was due to my concern for neurological concerns. Please see my MDM section of my ED note, for further details and management. In addition, this was independent and exclusive of separate billable procedures. [facility] Assessement Note History of Present Illness: I was emergently consulted by Emergency Department at [facility] for a stroke alert evaluation. 72-year-old female with a past medical history of hypertension, obesity, and type 2 diabetes who presents to [facility] ED for evaluation of trouble talking/slurred speech. Last Thursday she had an episode of slurred speech and trouble getting her words out that lasted for few hours and spontaneously resolved prior to EMS arriving. This is also in the setting of hypertension, headache and diarrhea. Today last known well at 2 PM. Shortly after this he was discovered to have a slurred speech and trouble getting her words out. He was also noted to be right facial droop and some mild right hand weakness. Symptoms persisted and family raise concerns prompting her to seek medical attention. No witnessed seizure-like movements activity. Denies headache today, visual loss, diplopia, sensory change, confusion, incoordination, vertigo, chest pain, SOB. On arrival to [facility] ED the patient had right facial droop and upper motor neuron pattern and severe dysarthria near anarthria. She is awake alert and cooperative and can name all objects correctly although severely dysarthric and can follow complex commands; hence no signs of aphasia. There is no unilateral weakness or sensory loss. Normal AMRs and dexterity in both hands. EXAM: NIH Stroke Scale Interval: Baseline Time: 6:38 PM Person Administering Scale: Henry Melendez NIH Stroke Scale Level of Consciousness (1a.): Alert, keenly responsive LOC Questions (1b.): Answers both questions correctly LOC Commands (1c.): Performs both tasks correctly Best Gaze (2.): Normal Visual (3.): No visual loss Facial Palsy (4.): Partial paralysis Motor Arm, Left (5a.): No drift Motor Arm, Right (5b.): No drift Motor Leg, Left (6a.): No drift Motor Leg, Right (6b.): No drift Limb Ataxia (7.): Absent Sensory (8.): Normal, no sensory loss Best Language (9.): No aphasia Dysarthria (10.): Severe dysarthria, patient's speech is so slurred as to be unintelligible in the absence of or out of proportion to any dysphasia, or is mute/anarthric Extinction and Inattention (11.) (Formerly Neglect): No abnormality Total: 4 Other examination findings: Imaging Findings (Reviewed by me preliminarily, official read pending): CT head (06/06/2022): No acute intracranial abnormalities; ASPECTS 10 Impression: Etiology concerning for ischemic infarction. Weakness pattern is not consistent with a Granda's palsy. Patient was not candidate for IV tPA due to remote LKW Plan: ED: CTA head/neck in ED if kidney function is permissible. Permissive HTN. Aspirin 325 mg once or 300. NPO till swallow evaluation Hospital: Disposition: Neurology consult MR brain w/o contrast NPO till swallow evaluation Aspirin 81. No echo unless embolic stroke Permissive HTN LDL, A1c PT/OT/ST SQ heparin Henry Melendez MD Cerebrovascular Neurology [facility] Neurological Physicians documented in this encounter [facility] 06-08-2022 Hospital course Narrative [facility] DISCHARGE SUMMARY -- [facility] Hilaria Lyons Admitted: 06/06/2022 Discharge Date: 06/08/22 PCP Handoff Recommended Outpatient Testing F/u with Dr. Collins, repeat MRI in 2-3 months Results Pending At Discharge none Clinical Summary Hilaria Lyons is a 72 y.o. female patient of Jaime Shine MD with past medical history of hypertension, hyperlipidemia, diabetes mellitus, CVA, moderate obesity body mass index 33.4 presented with slurred speech Slurred speech to rule out CVA Evaluated by telemetry neurologist Aspirin Statin Speech evaluation/PT OT and social service consult for discharge plan TSH Hemoglobin A1c Vitamin B12 folate levels Neurology consult Defer MRI order to neurology CT head showed no acute intracranial abnormality. Atherosclerotic calcification and chronic microvascular ischemia CT angiogram head and neck showed No large vessel occlusion. A focal moderate stenosis each in the distal right P2 and left P3. Carotids and vertebral arteries show no significant stenosis or dissection. MRI with no acute ischemia but with left parietal extradural mass likely meningioma with mass effect that is minimal on adjacent brain parenchyma without substantial edema Neurology consulted-as no stroke noted on MRI, recommend continuation of aspirin, restart blood pressure medications Stopping Plavix as no obvious stroke at this time Concern for possible seizures versus neurologic effect of meningioma Neurology to start Keppra and continue on discharge - ok to discharge from their perspective Accelerated hypertension Allow permissive hypertension for now Hold antihypertensive medication (Norvasc 10 mg daily, clonidine point 1 mg 4 times daily, hydralazine 25 mg 3 times daily, lisinopril/HCTZ 20/12.5 mg daily) IV hydralazine and labetalol as needed Restart amlodipine in a.m. Uncontrolled diabetes mellitus with hyperglycemia Blood sugar on admission 660 Insulin gtt. closely monitor electrolytes. On metformin, glimepiride at home Pt was supposed to be on glargine at home but didn't take it for 6 months Diabetic diet Hemoglobin A1c of 13.7 Dr. Collins consulted - restarted glargine with [facility] insulin Pt pays for her glargine herself - d/w DR. Collins, change to 75/25 and gave her samples for home, stop glimepiride F/u as OP Acute lower urinary tract infection Urine culture IV Rocephin Changed to keflex Hirsutism Follow-up with endocrinology as an outpatient Moderate obesity Body mass index 33.45 Encouraged weight loss and lifestyle modification Discharge Medications Discharge Medications New Medications Details aspirin 325 MG tablet Start taking on: June 09, 2022 Take 1 (one) tablet (325 mg total) by mouth daily Start: 06/09/22. Quantity: 30 tablet atorvastatin 40 MG tablet Commonly known as: LIPITOR Take 1 (one) tablet (40 mg total) by mouth nightly . Quantity: 30 tablet cephALEXin 500 MG capsule Commonly known as: KEFLEX Take 1 (one) capsule (500 mg total) by mouth every 8 (eight) hours for 3 days . Quantity: 9 capsule levETIRAcetam 500 MG tablet Commonly known as: KEPPRA Take 1 (one) tablet (500 mg total) by mouth 2 (two) times a day . Quantity: 60 tablet Medications To Continue Details ACETAMINOPHEN ORAL Take 500 mg by mouth every 6 (six) hours as needed . amLODIPine 10 MG tablet Commonly known as: NORVASC Take 1 (one) tablet (10 mg total) by mouth daily . Quantity: 30 tablet carvediloL 25 MG tablet Commonly known as: COREG Take 1 (one) tablet (25 mg total) by mouth 2 (two) times a day . cholecalciferol (vitamin D3) 50 mcg (2,000 unit) Tab Take 1 (one) tablet (2,000 Units total) by mouth . cloNIDine HCL 0.1 MG tablet Commonly known as: CATAPRES Take 1 (one) tablet (0.1 mg total) by mouth 4 (four) times a day . ibuprofen 200 MG tablet Commonly known as: ADVIL,MOTRIN Take 2 (two) tablets (400 mg total) by mouth every 6 (six) hours as needed for pain . lisinopriL-hydrochlorothiazide 20-12.5 mg per tablet Commonly known as: PRINZIDE,ZESTORETIC Take 2 (two) tablets by mouth daily . metFORMIN 1000 MG tablet Commonly known as: GLUCOPHAGE Take 1 (one) tablet (1,000 mg total) by mouth 2 (two) times a day with meals . Quantity: 60 tablet multivitamin per tablet Commonly known as: THERAGRAN Take 1 (one) tablet by mouth daily . Stopped Medications glimepiride 4 MG tablet Commonly known as: AMARYL hydrALAZINE 25 MG tablet Commonly known as: APRESOLINE insulin glargine 100 unit/mL injection Commonly known as: LANTUS Physician(s) Follow Up: No follow-up provider specified. Condition at Discharge: Good Disposition: Home On day of discharge, I performed a final bedside evaluation including a physical exam. I reviewed discharge recommendations with the patient in person. Patient instructions, including activity, were given to the patient/family at discharge. Time spent on discharge: > 30 minutes Completed by: Nicole Elizalde on 06/08/22, 10:22 AM documented in this encounter [facility] 06-07-2022 Note Formatting of this n ote might be different from the original. MRI reviewed. There is no acute stroke but there is a left parietal area meningioma which abuts the cortex in that area, without significant edema. No hemorrhage. Given the transient nature of the symptoms, unlikely to be from physical compression. More likely cortical irritability with small focal seizures, especially in light of her significant hyperglycemia and probable UTI which can cause cortical irritability already. TIA is possible, but less likely given the duration of symptoms without any evidence of ischemic changes at all on MRI. We discussed the case. We opted to proceed with initiating Keppra now despite the potential that it could be TIA. It is generally low-risk to try it and we can always consider weaning it off in the outpatient setting. Long-term we will need a repeat MRI, this time with and without contrast, in about 2-3 months. A routine EEG is unlikely to significantly change my management, this can be considered in the outpatient setting especially if events continue. There is no indication for DAPT given lack of ischemic findings. She should continue aspirin, which I have weight-adjusted to full strength (325mg daily). Continue atorvastatin given her overall cardiovascular risk profile, LDL is above ideal goal at 106. She should be monitored overnight to control blood sugar and blood pressure. No need for autoregulation given no stroke seen. I have resumed lower doses of her home amlodipine and lisinopril/hydrochlorothiazide; may add other home agents depending on how her BP does. [facility] 06-07-2022 Consult note Associated Order (s): IP CONSULT TO NEUROLOGY; IP CONSULT TO NEUROLOGY Neurology Inpatient Consult [facility] Date of Service: 06/07/22 Admit Date: 06/06/2022 Service Type: New Patient Consultation Patient: Hilaria Lyons Date of : 1950 (72 y.o.) Referring Provider: Refer to consult order in electronic medical record PCP: Jaime Shine MD Assessment ASSESSMENT: Hilaria Lyons is a 72 y.o. female who presented to [facility] on 06/06/2022 with slurred speech. Patient presented with acute onset of slurred speech, right-sided weakness. She did have similar symptoms approximately 1 week ago which resolved within a short period. On exam presently she does have mild dysarthria and a subtle questionable flattening of right nasolabial fold, but symptoms do appear to have improved substantially since arrival. Most likely represents a small acute stroke. 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 CT shows no obvious new stroke but a moderate burden of white matter disease. Stroke risk factors include uncontrolled hypertension and diabetes, obesity. Lipid panel pending, probably has some degree of hyperlipidemia as well. Etiology could be small vessel related to uncontrolled risk factors, or could be related to atherosclerotic disease in her milking machine technician depending on location of the infarct. Hyperglycemia can cause transient neurologic deficits so this remains on the differential, although her blood sugars are normalized and she still has some degree of deficits so this is felt less likely. She reports that her A1c had improved somewhat recently with dietary changes, down to 7.9, although on check here it is 13.7 suggesting that she has still had persistent issues with control. Lipid panel is pending. Note that she was seen in the ED 2 years ago for tachycardia, initially there was concern for possible A. fib but it was felt by cardiology to be sinus tachycardia with PACs. She was briefly on Eliquis but has not been on any since. No A. fib has been seen here. Diagnoses: Presumed acute ischemic stroke Admitted with these risk variables:Cerebral Infarction NIHSS = 4 on arrival, 2 now Please see assessment and plan for further details. PLAN: TIA or Stroke (Ischemic Infarct) Etiology: Uncertain Testing: MRI brain without contrast Labs: Lipid panel (Fasting) Cardiac Rhythm: NO Afib noted to date Anti-thrombotic: Plavix and ASA 81 mg for 30 days, then d/c aspirin Anti-lipid Agent: Lipitor (atorvastatin) 40 mg BP Goal: Less than 220/110 for initial 24 hrs of admit/onset of stroke-like symptoms, then gradual steady reduction to normotension; AVOID hypotension; Attending Service to manage Glucose Goal: Normoglycemia/ A1c less than 6.5. Attending Service to manage. Tobacco: Counseled to not smoke/use tobacco. Attending Service to manage. Therapy (Assessed for Rehab): Yes, already assessed DVT Prophylaxis: Pharmacological DVT prophylaxis recommended. Lovenox 40 mg subcutaneous once daily Eventual Outpatient Follow-up: [facility] Fabian Mccabe MD Staff Neurologist [facility] [address] [id number], [facility] [id number] [facility] Fax: [phone] 06/07/22 Parts of this note may have been dictated using [employer], a speech-recognition software. Syntax errors and sound-alike substitutions which may escape proofreading could be present. In such instances, the actual meaning can be extrapolated from the context. Subjective SUBJECTIVE: Chief Complaint/Reason for Consult: Slurred speech History of Present Illness: Hilaria Lyons is a 72 y.o. female who presented on 06/06/2022 for slurred speech. Neurology is consulted for possible stroke. Ms. Lyons reports that she was in her usual state of health until Thursday, 05/30, when she had a transient episode of slurred speech and right-sided weakness. She tells me that this lasted 15 to 20 seconds before resolving completely. She did not seek medical attention at the time. Here, the history differs slightly from what was noted in the initial stroke alert note. She told me today that on Thursday, 06/04, she began having slurred speech and some mild right hand weakness. She did not tell anyone about it, but on 06/06 her daughter found out and insisted she go to the hospital. On arrival she had severe dysarthria and right facial droop. No right hand weakness or other right-sided weakness was seen. Initial blood sugars were in the 600s and blood pressures after arrival ranged as high up as 231/107. Blood sugars have come down to 104 this morning with blood pressures in the 160s over 80s Today she has improved but is not yet back to baseline. Still some difficulty with her speech. She also reports some difficulty with concentration and memory that is new from her baseline. At baseline she is fully independent in all ADLs. She has no history of stroke. No family history of stroke. She does have a history of poorly controlled hypertension and diabetes. She says that previously her A1c was up to 13, but improved to 7.9 on her last check with dietary changes. Unfortunately her A1c here is back up to 13.7. She reports that she takes a baby aspirin at home. Review of systems: All systems were reviewed and found to be negative except for those mentioned in the HPI. Review of data including medical histories, allergies and medications Medical surgical social and family histories: She has a past medical history of Arthritis, CVA (cerebrovascular accident) (HCC) (06/06/2022), Diabetes mellitus (HCC), Hypertension, and Obesity. She has a past surgical history that includes Cholecystectomy; Tubal ligation (1986); Cataract extraction, bilateral; and Eye surgery (Bilateral, 2017). She family history includes Cancer in her father; Diabetes in her mother; Heart disease in her mother. She reports that she has never smoked. She has never used smokeless tobacco. She reports that she does not drink alcohol and does not use drugs. Allergies: Allergies: [place]idge, Poison rhonda extract, Poison oak extract, and Penicillins MEDICATIONS: WERE REVIEWED AND CHECKED FOR ALLERGIES AND INTERACTIONS (IN EMR). Objective OBJECTIVE: Physical Examination: BP (!) 166/85 (BP Location: Right arm, Patient Position: Lying) Pulse 81 Temp 97.9 F (36.6 C) (Oral) Resp 14 Ht 5' 1 Wt 80.3 kg (177 lb 0.5 oz) SpO2 96% BMI 33.45 kg/m GENERAL: General Appearance: Resting comfortably in bed in NAD HEENT: Normocephalic. No conjunctival injection. Ears appear normal. No substantial sinus drainage. See below for vision/hearing Neck: Supple, no tenderness, preserved ROM. Respiratory Effort: Normal Extremities: No edema Skin: Significantly dry, cracked skin in both feet with scaling present. No ulcers. MSK: Arthritic changes of both knees Neurological examination: MENTAL STATUS: Alertness, Attention Span & Concentration: Normal Language: Normal Speech: Mild mixed dysarthria, easily understood, occasional hesitations and pauses. Orientation: Oriented to person, place, time/date, and situation Memory, Recent & Remote: Only mild difficulty Fund of Knowledge: Normal CRANIAL NERVES: II - Visual [place]: Normal II, III: Pupils: PERRL, no RAPD III, IV, : Eye Movements: Normal (EOMI, No ptosis, No nystagmus) V - Facial Sensation: Normal VII: Face Symmetry & Strength: Normal VIII - Hearing: Normal to finger rub b/l IX, X - Palate: Normal, elevates symmetrically XI - Shoulder Shrug: Normal XII - Tongue Protrusion: Normal, symmetric MOTOR: Muscle Strength Right Left 5 Shoulder Abduction (Deltoid) 5 5 Elbow Flexion (Biceps) 5 5 Elbow Extension (Triceps) 5 5 Wrist Flexion 5 5 Wrist Extension 5 5 Finger Abduction (Interossei) 5 Right Left 5 Hip Extension 5 5 Hip Flexion (Iliopsoas) 5 5 Knee Extension (Quads) 5 5 Knee Flexion (Hamstrings) 5 5 Dorsiflexion (Anterior Tibialis) 5 5 Plantar Flexion (Gastrocnemius) 5 Normal Bulk and Tone, no atrophy MOTOR BEJARANO: 5 Normal (Normal Power) 4 Mild Weakness (Movement against moderate resistance over a full range of motion) 3 Moderate Weakness (Movement against gravity only over almost full range of motion) 2 Severe Weakness (Movement with gravity eliminated over almost full range of motion) 1 Trace Movement (Contraction visible or palpable without effective movement of the joint) 0 No Movement (No contraction visible or palpable) MARY JO Unable to Assess SENSATION: Fine Touch: Normal Pinprick: Decreased slightly in feet bilaterally symmetrically in stocking pattern Proprioception: Normal Vibration: Decreased feet bilaterally Temperature: Normal REFLEXES: Right Reflexes Left 2+ Biceps 2+ 2+ Triceps 2+ 2+ Brachioradialis 2+ 1+ Patellar 1+ 0 Achilles 0 Down Plantar Response (Babinski) Down REFLEXES BEJARANO: 4+ Sustained Clonus 3+ Brisk 2+ Normal 1+ Diminished 0 Absent MARY JO Unable to Assess COORDINATION: Coordination Wgwfwd-yc-Ffsk: A little slow and cautious but no overt ataxia is appreciated Holley Finger taps: normal Coordination Ubof-Cpey-Klvk: normal Diadochokinesis: normal STANCE AND GAIT: Base/Stance: Mildly widened base Gait: Slightly unsteady that without obvious focal weakness, had to hold onto me to stand Gait Aid Used During Exam: None Gait Assistance Required During Exam: None MOVEMENT DISORDERS EXAMINATION: Tremor - no tremors noted Bradykinesia - None Rigidity - None Dyskinesia/Choreoathetosis - None Dystonia/Myoclonus/Tics - None DIAGNOSTIC TESTING SUMMARY: Pending Lab and Radiology Results Order Current Status Urine Aerobic Culture In process Resulted Testing: (MRI/CT/XR, EEG, EMG, CSF, Cardiac, Labs) CT brain with moderate diffuse white matter disease and mild atrophy, along with vascular calcifications noted. 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 No hemorrhage A1c 13.7 Attestation: Discussed risks, benefits and alternatives regarding plan with patient/family/caregivers and answered the questions. I independently reviewed radiology images and summarized in this note with annotations and screenshots wherever appropriate. Time statement: A total of 70 minutes were spent on this encounter either in the patient's room or on the patient's hospital unit and over 50% of that time was spent on ofms-er-czec counseling and/or coordination of care. This includes discussions with patient/family as well as with consulting care providers, regarding clinical course, prognosis, treatment alternatives, expected outcomes of medications and their side effects. [facility] 06-07-2022 Consult note Associated Order (s): IP CONSULT TO NEUROLOGY; IP CONSULT TO NEUROLOGY Neurology Inpatient Consult [facility] Date of Service: 06/07/22 Admit Date: 06/06/2022 Service Type: New Patient Consultation Patient: Hilaria Lyons Date of : 1950 (72 y.o.) Referring Provider: Refer to consult order in electronic medical record PCP: Jaime Shine MD Assessment ASSESSMENT: Hilaria Lyons is a 72 y.o. female who presented to [facility] on 06/06/2022 with slurred speech. Patient presented with acute onset of slurred speech, right-sided weakness. She did have similar symptoms approximately 1 week ago which resolved within a short period. On exam presently she does have mild dysarthria and a subtle questionable flattening of right nasolabial fold, but symptoms do appear to have improved substantially since arrival. Most likely represents a small acute stroke. 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 CT shows no obvious new stroke but a moderate burden of white matter disease. Stroke risk factors include uncontrolled hypertension and diabetes, obesity. Lipid panel pending, probably has some degree of hyperlipidemia as well. Etiology could be small vessel related to uncontrolled risk factors, or could be related to atherosclerotic disease in her milking machine technician depending on location of the infarct. Hyperglycemia can cause transient neurologic deficits so this remains on the differential, although her blood sugars are normalized and she still has some degree of deficits so this is felt less likely. She reports that her A1c had improved somewhat recently with dietary changes, down to 7.9, although on check here it is 13.7 suggesting that she has still had persistent issues with control. Lipid panel is pending. Note that she was seen in the ED 2 years ago for tachycardia, initially there was concern for possible A. fib but it was felt by cardiology to be sinus tachycardia with PACs. She was briefly on Eliquis but has not been on any since. No A. fib has been seen here. Diagnoses: Presumed acute ischemic stroke Admitted with these risk variables:Cerebral Infarction NIHSS = 4 on arrival, 2 now Please see assessment and plan for further details. PLAN: TIA or Stroke (Ischemic Infarct) Etiology: Uncertain Testing: MRI brain without contrast Labs: Lipid panel (Fasting) Cardiac Rhythm: NO Afib noted to date Anti-thrombotic: Plavix and ASA 81 mg for 30 days, then d/c aspirin Anti-lipid Agent: Lipitor (atorvastatin) 40 mg BP Goal: Less than 220/110 for initial 24 hrs of admit/onset of stroke-like symptoms, then gradual steady reduction to normotension; AVOID hypotension; Attending Service to manage Glucose Goal: Normoglycemia/ A1c less than 6.5. Attending Service to manage. Tobacco: Counseled to not smoke/use tobacco. Attending Service to manage. Therapy (Assessed for Rehab): Yes, already assessed DVT Prophylaxis: Pharmacological DVT prophylaxis recommended. Lovenox 40 mg subcutaneous once daily Eventual Outpatient Follow-up: [facility] Fabian Mccabe MD Staff Neurologist [facility] [address] [id number], [facility] [address] Clinic Fax: [phone] 06/07/22 Parts of this note may have been dictated using [employer], a speech-recognition software. Syntax errors and sound-alike substitutions which may escape proofreading could be present. In such instances, the actual meaning can be extrapolated from the context. Subjective SUBJECTIVE: Chief Complaint/Reason for Consult: Slurred speech History of Present Illness: Hilaria Lyons is a 72 y.o. female who presented on 06/06/2022 for slurred speech. Neurology is consulted for possible stroke. Ms. Lyons reports that she was in her usual state of health until Thursday, 05/30, when she had a transient episode of slurred speech and right-sided weakness. She tells me that this lasted 15 to 20 seconds before resolving completely. She did not seek medical attention at the time. Here, the history differs slightly from what was noted in the initial stroke alert note. She told me today that on Thursday, 06/04, she began having slurred speech and some mild right hand weakness. She did not tell anyone about it, but on 06/06 her daughter found out and insisted she go to the hospital. On arrival she had severe dysarthria and right facial droop. No right hand weakness or other right-sided weakness was seen. Initial blood sugars were in the 600s and blood pressures after arrival ranged as high up as 231/107. Blood sugars have come down to 104 this morning with blood pressures in the 160s over 80s Today she has improved but is not yet back to baseline. Still some difficulty with her speech. She also reports some difficulty with concentration and memory that is new from her baseline. At baseline she is fully independent in all ADLs. She has no history of stroke. No family history of stroke. She does have a history of poorly controlled hypertension and diabetes. She says that previously her A1c was up to 13, but improved to 7.9 on her last check with dietary changes. Unfortunately her A1c here is back up to 13.7. She reports that she takes a baby aspirin at home. Review of systems: All systems were reviewed and found to be negative except for those mentioned in the HPI. Review of data including medical histories, allergies and medications Medical surgical social and family histories: She has a past medical history of Arthritis, CVA (cerebrovascular accident) (HCC) (06/06/2022), Diabetes mellitus (HCC), Hypertension, and Obesity. She has a past surgical history that includes Cholecystectomy; Tubal ligation (1986); Cataract extraction, bilateral; and Eye surgery (Bilateral, 2017). She family history includes Cancer in her father; Diabetes in her mother; Heart disease in her mother. She reports that she has never smoked. She has never used smokeless tobacco. She reports that she does not drink alcohol and does not use drugs. Allergies: Allergies: Coolidge, Poison rhonda extract, Poison oak extract, and Penicillins MEDICATIONS: WERE REVIEWED AND CHECKED FOR ALLERGIES AND INTERACTIONS (IN EMR). Objective OBJECTIVE: Physical Examination: BP (!) 166/85 (BP Location: Right arm, Patient Position: Lying) Pulse 81 Temp 97.9 F (36.6 C) (Oral) Resp 14 Ht 5' 1 Wt 80.3 kg (177 lb 0.5 oz) SpO2 96% BMI 33.45 kg/m GENERAL: General Appearance: Resting comfortably in bed in NAD HEENT: Normocephalic. No conjunctival injection. Ears appear normal. No substantial sinus drainage. See below for vision/hearing Neck: Supple, no tenderness, preserved ROM. Respiratory Effort: Normal Extremities: No edema Skin: Significantly dry, cracked skin in both feet with scaling present. No ulcers. MSK: Arthritic changes of both knees Neurological examination: MENTAL STATUS: Alertness, Attention Span & Concentration: Normal Language: Normal Speech: Mild mixed dysarthria, easily understood, occasional hesitations and pauses. Orientation: Oriented to person, place, time/date, and situation Memory, Recent & Remote: Only mild difficulty Fund of Knowledge: Normal CRANIAL NERVES: II - Visual [place]: Normal II, III: Pupils: PERRL, no RAPD III, IV, : Eye Movements: Normal (EOMI, No ptosis, No nystagmus) V - Facial Sensation: Normal VII: Face Symmetry & Strength: Normal VIII - Hearing: Normal to finger rub b/l IX, X - Palate: Normal, elevates symmetrically XI - Shoulder Shrug: Normal XII - Tongue Protrusion: Normal, symmetric MOTOR: Muscle Strength Right Left 5 Shoulder Abduction (Deltoid) 5 5 Elbow Flexion (Biceps) 5 5 Elbow Extension (Triceps) 5 5 Wrist Flexion 5 5 Wrist Extension 5 5 Finger Abduction (Interossei) 5 Right Left 5 Hip Extension 5 5 Hip Flexion (Iliopsoas) 5 5 Knee Extension (Quads) 5 5 Knee Flexion (Hamstrings) 5 5 Dorsiflexion (Anterior Tibialis) 5 5 Plantar Flexion (Gastrocnemius) 5 Normal Bulk and Tone, no atrophy MOTOR BEJARANO: 5 Normal (Normal Power) 4 Mild Weakness (Movement against moderate resistance over a full range of motion) 3 Moderate Weakness (Movement against gravity only over almost full range of motion) 2 Severe Weakness (Movement with gravity eliminated over almost full range of motion) 1 Trace Movement (Contraction visible or palpable without effective movement of the joint) 0 No Movement (No contraction visible or palpable) MARY JO Unable to Assess SENSATION: Fine Touch: Normal Pinprick: Decreased slightly in feet bilaterally symmetrically in stocking pattern Proprioception: Normal Vibration: Decreased feet bilaterally Temperature: Normal REFLEXES: Right Reflexes Left 2+ Biceps 2+ 2+ Triceps 2+ 2+ Brachioradialis 2+ 1+ Patellar 1+ 0 Achilles 0 Down Plantar Response (Babinski) Down REFLEXES BEJARANO: 4+ Sustained Clonus 3+ Brisk 2+ Normal 1+ Diminished 0 Absent MARY JO Unable to Assess COORDINATION: Coordination Rvbrdf-jo-Sgaw: A little slow and cautious but no overt ataxia is appreciated Holley Finger taps: normal Coordination Fmfe-Zkcc-Bshi: normal Diadochokinesis: normal STANCE AND GAIT: Base/Stance: Mildly widened base Gait: Slightly unsteady that without obvious focal weakness, had to hold onto me to stand Gait Aid Used During Exam: None Gait Assistance Required During Exam: None MOVEMENT DISORDERS EXAMINATION: Tremor - no tremors noted Bradykinesia - None Rigidity - None Dyskinesia/Choreoathetosis - None Dystonia/Myoclonus/Tics - None DIAGNOSTIC TESTING SUMMARY: Pending Lab and Radiology Results Order Current Status Urine Aerobic Culture In process Resulted Testing: (MRI/CT/XR, EEG, EMG, CSF, Cardiac, Labs) CT brain with moderate diffuse white matter disease and mild atrophy, along with vascular calcifications noted. 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 No hemorrhage A1c 13.7 Attestation: Discussed risks, benefits and alternatives regarding plan with patient/family/caregivers and answered the questions. I independently reviewed radiology images and summarized in this note with annotations and screenshots wherever appropriate. Time statement: A total of 70 minutes were spent on this encounter either in the patient's room or on the patient's hospital unit and over 50% of that time was spent on ycjw-yn-ducm counseling and/or coordination of care. This includes discussions with patient/family as well as with consulting care providers, regarding clinical course, prognosis, treatment alternatives, expected outcomes of medications and their side effects. Occupational Therapy OCCUPATIONAL THERAPY EVALUATION Dx: Slurred speech, accelerated hypertension Skilled Therapy Needs After Discharge Anticipate Resolution of Current Assessment Limitations Including: Mechanical Barriers, Social Support Are Skilled Therapy Services Needed After Discharge: Yes Intensity of Skilled Therapy: 2-3 days per week (If family able to provide increased assist) Anticipated Duration of Skilled Therapy: Duration 7 - 10 days DME Recommendation: Adaptive equipment kit (hand sewer shoes) DME Rationale: Patient's condition creates an increased risk of safety hazard without recommended equipment Rehab Potential: Good Outcomes Measures Prior Function Daily Activity Raw Score: 24 Prior Function Daily Activity % Impaired: 0% AM-PAC Daily Activity Raw Score: 19 AM-PAC Daily Activity % Impaired: 42.80% Occupational Therapy Assessment The patient's current functional participation deficits are grooming, UE dressing, LE dressing, bathing, toileting, home management, meal preparation, functional mobility, driving. This reduced independence will limit their life roles of premorbid level individual. The patient's co morbidities do affect patient performance in the above activities and roles. The performance deficits are a result of musculoskeletal, neurological impairment(s) in generalized debility including strength, balance, dexterity, coordination, acitvity tolerance, insight, safety, and knowledge deficit. The patient's home setup is a barrier, limitations of family / caregiver support is a barrier for return to prior level of function. 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 During the assessment, minimal to moderate modification of task was required and several treatment options were identified in the plan of care. This consultation required expanded review of the medical and therapy history. Activity Tolerance Activity Tolerance: Tolerates 20 - 30 min activity with multiple rests Therapy Precautions Orthotic Devices: No Weight Bearing Status: WFL General Rehab Precautions: Fall risk Cognition Overall Cognitive Status: Within Functional Limits Arousal/Alertness: Appropriate responses to stimuli Orientation Level: Oriented X4 Executive functioning: Insight Safety Judgment: Decreased awareness of need for assistance, Decreased awareness of need for safety Problem Solving: Assistance required to identify errors made, Assistance required to generate solutions, Assistance required to implement solutions Attention: Attends to quiet environment Hearing Status: WFL Social Interaction: Dysarthric, Verbose UE Function BUE AROM is WFL. Strength about 4/5 to 5/5 bilaterally, no unilateral weakness appreciated. Decreased speed and accuracy w/ finger/nose/target assessment bilaterally. ADL Lower Body Dressing: Set-up (donned/doffed bilateral shoes seated EOB) Toileting: Stand by assist (Pt performed her own anterior chito hygiene and clothing management following urination.) Functional Mobility: Contact guard assist, Adaptive equipment (Pt unsteady w/ ambulation to bathroom without AD, reaching out to [place] for stability. provided pt w/ FWW for amb back to bed and pt w/ improved balance) Bed Mobility Supine to Sit: Modified independent, Head of bed elevated Sit to Supine: Modified independent Functional Transfers Sit to Stand: Contact guard assist Bed to Chair Transfers: Contact guard assist Stand Pivot Transfers: Contact guard assist Toilet Transfers: Contact guard assist Additional Assessment Details Pt declines need for tub transfer bench. Home Living Obtained Home Living and PLOF info from: Patient Lives With: Alone Type of Home: Apartment Home Layout: One level, Laundry in basement (down 14 steps to laundry) Steps to enter home: Yes Rails to enter home: 1 rail Number of stairs to enter home: 6 (4+1+1) Bathroom Shower/Tub: Tub/shower unit Bathroom Toilet: Raised Prior Level of Function Receives Help From: Family Level of [place] - Transfers/Ambulation/Mobility: Independent with functional transfers, Independent with household ambulation, Independent with community ambulation Level of [place] - ADLs: Independent Level of [place] - Homemaking: Independent Driving: Patient drives Subjective Impression - Prior Function: Pt reports nieces and daughters can assist her as able Past Medical History: Diagnosis Date Arthritis CVA (cerebrovascular accident) ([facility]) 06/06/2022 Diabetes mellitus (HCC) Hypertension Obesity Past Surgical History: Procedure Laterality Date CATARACT EXTRACTION, BILATERAL CHOLECYSTECTOMY EYE SURGERY Bilateral 2017 cataracts TUBAL LIGATION 1986 For complete objective data, detailed plan of care and patient education refer to: OT Evaluation flowsheet, OT Evaluation and Treatment flowsheet, OT Treatment flowsheet, patient Plan of Care, Plan of Care progress note, and Patient Education. This note stands as the current Discharge Summary upon patient discharge from the hospital or completion of Occupational Therapy Plan of Care. Speech Pathology General Cognition / Communication Eval Note Per chart review, Hilaria Lyons is a 72 y.o. female patient of Jaime Shine MD with past medical history of hypertension, hyperlipidemia, diabetes mellitus, CVA, moderate obesity body mass index 33.4 presented with slurred speech CT: No large vessel occlusion. A focal moderate stenosis each in the distal right P2 and left P3. Carotids and vertebral arteries show no significant stenosis or dissection. Per patient report, speech improving however, mildly different from baseline. Patient also reporting new mild memory and concentration deficits. Patient independent with IADL's at baseline. ST will continue to follow for speech and memory strategy education and therapy. Auditory Comprehension Severity rating: WFL Expressive Language Severity rating: Modified Indep/Extended time Motor Speech Severity ratin-90% (Mild) Cognition Severity ratin-100% (Supervision, Occasional Cues), 75-90% (Mild) Factors for returning to Prior Level of Function: Factors for Returning to Prior Level of Function Body Structure and Function: Neurologic impairment Explain Impairments: acute CVA, UTI Activities and Participation: Balance limitation and fall risk, Mobility limitation, ADL/IADL limitation Explain Limitations: suspect acute CVA, slurred speech, mild cognitive changes Environmental Factors: Home situation, Family/caregiver support Explain Environmental Factors: lives alone Personal Factors: Awareness of own capacity and performance Explain Personal Factors: good insight Skilled therapy needs: Skilled Therapy Needs: Are Skilled Therapy Services Needed After Discharge: No Functional Limitations: communication deficits, impaired memory Intensity of Skilled Therapy: 2-3 days per week Anticipated Duration of Skilled Therapy: Duration 7 - 10 days Prior function: Prior Function Reason for Referral: Stroke / neuro Primary Language: Mongolian 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) Education Level: College grad Living Situation: Alone, Independent with ADL's, Manages own medications, Manages own finances Prior Speech Deficit: No known previous deficits Prior Language Deficit: No known previous deficits Prior Cognitive Deficit: No known previous deficits Other pertinent diagnoses affecting cog/comm/voice: CVA Baseline Assessment Subjective Impression: Alert, Pleasant Mood, Cooperative Respiratory Status: Room air Oral motor: Oral/Motor Oral Motor Impression-Severity Scale: WFL Labial ROM: Within Functional Limits Labial Symmetry at Rest: Within Functional Limits Labial Strength: Within Functional Limits Labial Sensation: Within Functional Limits Lingual ROM: Within Functional Limits Lingual Symmetry: Within Functional Limits Lingual Strength: Within Functional Limits Lingual Sensation: Within Functional Limits Velum: Within Functional Limits Mandible: Within Functional Limits Facial ROM: Within Functional Limits Facial Symmetry at Rest: Within Functional Limits Facial Sensation: Within Functional Limits Apraxia: None present Auditory Comprehension: Auditory Comp Impression-Severity Scale: WFL Visual Perception: Visual Perception: No acute visual changes Reading Comprehension: Reading Comp Impression-Severity: Requires further assessment Expressive Language: Expressive Language Impression-Severity: Modified Indep/Extended time Primary Mode of Expression: Verbal, Basic conversation level, Complex conversation level Aphasia: None present Motor Speech: Motor Speech Impression Severity: 75-90% (Mild) Speech Intelligibility: Exceptions to WFL Conversation: 90-100% (Supervision, Occasional Assist), 75-90% (Mild) Dysarthria Characteristics: Imprecise articulation, Slow rate (patient reports hesitations with speech) Cognitive-Communication: Speech Cognition Impression-Severity: 90-100% (Supervision, Occasional Cues), 75-90% (Mild) Orientation Level: Oriented x4 Attention: Within Functional Limits Memory: Exceptions to WFL Immediate recall: 75-90% (Mild) Delayed recall: 75-90% (Mild) Additional Observation: Uses memory strategies Recommended memory strategies: Written cues (lists, notes, etc), Set alarms, Daily principal planner/Calendar use Safety/Judgement: Within Functional Limits Insight: Within function limits Task Initiation: WFL Flexibility of Thought: Within functional limits Pragmatics: No overt deficits Recommended general cognitive strategies: Use of external visual aids (lists, notes, etc) Patient O-Log (Orientation Log) Score - Cut off score 25 or better on two separate administrations: Orientation-Log Orientation-log: Yes City: [address]: 3 Name of Hospital: 3 Month: 3 Date: 3 Year: 3 Day of Week: 3 Clock Time: 3 Etiology / Event: 3 Pathology Deficits: 3 Orientation Log Total Score (out of 30): 30 Orientation Log Impression - ORTHOTIC TECHNICIAN: Will discontinue the O-log based on patient achieving 25 or better on two separate administrations. Repeat Orientation-Log: No Patient Cog-Log (Cognitive Log) Score - Cut off score 25 or better: Cognitive-Log Cognitive-log: Yes Date: 3 Clock Time: 3 Name of Hospital: 3 Repeat Address: 2 20 to 1: 3 Months Reversed: 3 30 Seconds: 3 Fist Edge-Palm: 2 Go / No-Go: 3 Address Recall: 2 Cognitive Log Total Score (out of 30): 27 Cognitive Log Impression: Score is at cut-off and suggests within functional limits attention/concentration and memory. However, given patient's endorsement of acute attention and memory changes, errors could also reflect deficits of attention/concentration and memory. ORTHOTIC TECHNICIAN Caregiver Readiness: ORTHOTIC TECHNICIAN Caregiver Readiness Working toward discharge home: Yes ORTHOTIC TECHNICIAN Caregiver Training: Completed (patient own caregiver) Speech Plan: Further acute Speech Therapy services indicated: Yes Role of ST Discussed: With patient Risk/Benefits of ST Discussed: With patient Patient Goal for Treatment: To go home Rehab Potential: Good Further Recommendations: Speech/language/cognitive evaluation Past Medical History: Diagnosis Date Arthritis CVA (cerebrovascular accident) (HCC) 06/06/2022 Diabetes mellitus (HCC) Hypertension Obesity Past Surgical History: Procedure Laterality Date CATARACT EXTRACTION, BILATERAL CHOLECYSTECTOMY EYE SURGERY Bilateral 2017 cataracts TUBAL LIGATION 1986 For complete objective data, detailed plan of care, and education refer to: Speech Comm/Cog Eval flow sheet, as well as patient Plan of Care and Education documentation. This note stands as the current Discharge Summary upon patient discharge from the hospital or completion of Speech Pathology Plan of Care Speech Pathology Bedside Swallow Evaluation Recommendations: Further Eval Rxs: Cognitive-communication evaluation PO Recommendations: NDD diet NDD diet recommendation: Regular solids, Thin liquids Compensatory Strategies: Eat/feed slowly, Alternate solids and liquids Postures: Sit as upright as possible for all oral intake Food Presentation: Small bites, Average bites Liquid Presentation: Small sips, Average sips Medication Presentation: Whole with thins, Whole in puree, Per Patient Preference Amount of Supervision: Set up assistance with tray Treatment Techniques: No speech therapy for swallowing Further Recommendations: Oral care TID Discharge Recommendations: Skilled Therapy Needs: Are Skilled Therapy Services Needed After Discharge: No Functional Limitations: communication deficits, impaired memory Intensity of Skilled Therapy: 2-3 days per week Anticipated Duration of Skilled Therapy: Duration 7 - 10 days Prior Function: Reason for Referral: Stroke / neuro Prior Swallow Deficit: No known previous deficits Swallow Complaint: (no swallow complaint) Other Pertinent Diagnoses Affecting Swallow: CVA Diet Prior to BSE: Regular, Thin liquid Primary Language: Mongolian Baseline Assessment: Subjective Impression: Alert, Pleasant Mood, Cooperative Respiratory Status: Room air Dentition: Partial dentures, Some missing teeth Self-Feeding Barriers: Functional for self-feeding Patient Positioning: Upright in bed Volitional Cough: Strong Baseline Cough: Dry Secretion Management: Adequate Volitional Swallow: Present Oral Motor: Oral Motor Impression-Severity Scale: WFL Labial ROM: Within Functional Limits Labial Symmetry at Rest: Within Functional Limits Labial Strength: Within Functional Limits Labial Sensation: Within Functional Limits Lingual ROM: Within Functional Limits Lingual Symmetry: Within Functional Limits Lingual Strength: Within Functional Limits Lingual Sensation: Within Functional Limits Velum: Within Functional Limits Mandible: Within Functional Limits Facial ROM: Within Functional Limits Facial Symmetry at Rest: Within Functional Limits Facial Sensation: Within Functional Limits Apraxia: None present Voice: Breath Support: WFL Vocal Quality: WFL Vocal Intensity: WFL Consistencies Assessed: CONSISTENCY PRESENTATION ORAL (SIGNS / SYMPTOMS) PHARYNGEAL (SIGNS / SYMPTOMS) ICE THIN Cup Within functional limits Within Functional Limits NECTAR HONEY PUREE SOFT SOLID Self Fed Within functional limits Within Functional Limits Patient demonstrated tolerance of regular diet with thin liquids, no overt s/sx of aspiration. Patient reporting no hx of swallowing difficulties. Recommend continued regular diet. No further ST for swallowing recommended. Impressions-Severity Level: Oral Severity Scale: WNL Pharyngeal Severity Scale: WNL Factors for Returning to PLOF: Body Structure and Function: Neurologic impairment Explain Impairments: acute CVA, UTI Activities and Participation: Balance limitation and fall risk, Mobility limitation, ADL/IADL limitation Explain Limitations: suspect acute CVA, slurred speech, mild cognitive changes Environmental Factors: Home situation, Family/caregiver support Explain Environmental Factors: lives alone Personal Factors: Awareness of own capacity and performance Explain Personal Factors: good insight ORTHOTIC TECHNICIAN Caregiver Readiness: ORTHOTIC TECHNICIAN Caregiver Readiness Working toward discharge home: Yes ORTHOTIC TECHNICIAN Caregiver Training: Completed (patient own caregiver) Speech Plan: Further acute Speech Therapy services indicated: Yes Role of ST Discussed: With patient Risk/Benefits of ST Discussed: With patient Patient Goal for Treatment: To go home Rehab Potential: Good Further Recommendations: Speech/language/cognitive evaluation For complete objective data, detailed plan of care, and education refer to: Speech Bedside Swallow Evaluation flow sheet, as well as patient Plan of Care and Education documentation. This note stands as the current Discharge Summary upon patient discharge from the hospital or completion of Speech Pathology Plan of Care. Associated Order(s): IP CONSULT TO ENDOCRINOLOGY Patient ID: Patient Name: Hilaria Lyons Admit Date: 06/06/2022 MR #: [id number] : 1950 Current location: [facility] Physicians: Jaime Shine MD (Family); Dr. London (Referring) Reason for consult: Type 2 diabetes out of control Assessment/Plan: Dx: Type 2 diabetes, under inadequate control Currently taking as outpatient: Metformin 1000 mg twice daily Glimepiride 4 mg twice daily Current Hemoglobin A1C= Lab Results Component Value Date HGBA1C 11.1 (H) 04/18/2020 HGBA1C 11.2 (H) 01/01/2018 NOTES: 06/07 BG and labs reviewed. Na 141, K 3.5, Creat 0.52, eGFR 99, Ca 9.1, WBC10.86, Hgb 14.7, Hct 43.3, Plt 182k. Will convert to QID insulin regimen. Blood Glucoses: 06/06 448---444 06/07 230---204---344 Plan: 1. Rx changes: Humalog insulin: 16 units at breakfast; 12 units at lunch; 12 units at supper Lantus insulin: 24 units at bedtime Humalog sliding scale Metformin 1000 mg twice daily Glimepiride 4 mg twice daily Needs outpatient podiatry care 2. Education: Reviewed ABCs of diabetes management (respective goals in parentheses): A1C (7.0-8.0), blood pressure (<130/80), and cholesterol (LDL <100). Referral to Diabetes Education Referral to Nutrition therapy Subjective: Brief HPI: Patient is a 72 year old female with hx of Type 2 DM, HTN, hyperlipidmia, who presented to ED with slurred speech and right arm and hand weakness. 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 She was started on IV insulin and IV hydration, with improvement in BG. She states she was prescribed 20 U Lantus one year ago and she did take it; however, 6 months ago was not able to get a refill and did not follow through with her PCP to see about a refill.She does know how to take insulin. Reports her right sided weakness is better. Patient has had diabetes for 10-12 years. Patient is currently taking Metformin and glimepiride. Currently the patient is receiving IV insulin. Blood sugar levels since admission have been ranging from 204-660 mg/dL. Current monitoring regimen: home blood tests - unsure Complications of diabetes include: Retinopathy: Negative Nephropathy: Negative Peripheral Neuropathy: Negative Autonomic Neuropathy: Negative Admission labs 06/06/2022 sodium 134, potassium 4.1, glucose 660, CO2 27, creatinine 0.84, estimated GFR 74, calcium 10.2, WBC 10.23, hemoglobin 16.1, hematocrit 45.1, platelet count 157,000, urinalysis greater than 500 glucose trace ketones 9 WBCs Allergies: Allergies Allergen Reactions [place] Hives Poison [place] Extract Poison [place] Extract Unknown Penicillins GI Intolerance Home Medications: Outpatient Medications Marked as Taking for the 06/06/22 encounter (Hospital Encounter): ACETAMINOPHEN ORAL, Take 500 mg by mouth every 6 (six) hours as needed . amLODIPine (NORVASC) 10 MG tablet, Take 1 (one) tablet (10 mg total) by mouth daily . carvediloL (COREG) 25 MG tablet, Take 1 (one) tablet (25 mg total) by mouth 2 (two) times a day . cholecalciferol, vitamin D3, 50 mcg (2,000 unit) Tab, Take 1 (one) tablet (2,000 Units total) by mouth . cloNIDine HCL (CATAPRES) 0.1 MG tablet, Take 1 (one) tablet (0.1 mg total) by mouth 4 (four) times a day . glimepiride (AMARYL) 4 MG tablet, Take 1 (one) tablet (4 mg total) by mouth 2 (two) times a day . ibuprofen (ADVIL,MOTRIN) 200 MG tablet, Take 2 (two) tablets (400 mg total) by mouth every 6 (six) hours as needed for pain . lisinopriL-hydrochlorothiazide (PRINZIDE,ZESTORETIC) 20-12.5 mg per tablet, Take 2 (two) tablets by mouth daily . metFORMIN (GLUCOPHAGE) 1000 MG tablet, Take 1 (one) tablet (1,000 mg total) by mouth 2 (two) times a day with meals . multivitamin (THERAGRAN) per tablet, Take 1 (one) tablet by mouth daily . Current Medications: aspirin 81 mg Oral Daily atorvastatin 40 mg Oral Nightly carvediloL 6.25 mg Oral BID cefTRIAXone (ROCEPHIN) IVPB 2,000 mg Intravenous Q24H glimepiride 4 mg Oral BID metFORMIN 1,000 mg Oral BID with meals multivitamin 1 tablet Oral Daily potassium chloride 20 mEq Intravenous Q1H if indicated in MAR calculator senna-docusate 1 tablet Oral BID sodium chloride (PF) 5 mL Intravenous Q8H DAMARIS sodium chloride (PF) 5 mL Intravenous Q8H DAMARIS sodium chloride (PF) 5 mL Intravenous Q8H DAMARIS acetaminophen, aluminum-magnesium hydroxide-simethicone, bisacodyL, dextrose 5 % and sodium chloride 0.45 %, dextrose 5 % and sodium chloride 0.45 % with KCl 20 mEq/L, labetalol OR hydrALAZINE, magnesium hydroxide, melatonin, morphine injection, nalOXone AND Notify physician AND naloxone, nitroGLYCERIN, ondansetron OR ondansetron, oxyCODONE-acetaminophen, senna, Saline lock IV AND sodium chloride (PF) AND sodium chloride (PF) AND sodium chloride 0.9 %, Saline lock IV AND sodium chloride (PF) AND sodium chloride (PF) AND sodium chloride 0.9 %, Saline lock IV AND sodium chloride (PF) AND sodium chloride (PF) AND sodium chloride 0.9 %, traZODone Review of Systems: Review of Systems Constitutional: Positive for fatigue. Eyes: Negative for visual disturbance. Respiratory: Negative for shortness of breath. Cardiovascular: Negative for chest pain. Gastrointestinal: Negative for constipation, diarrhea, nausea and vomiting. Endocrine: Positive for polydipsia. Skin: Negative for wound. Dry skin and onychomycosis toenails Neurological: Positive for speech difficulty and weakness. Psychiatric/Behavioral: Negative for sleep disturbance. History: Past Medical History: Diagnosis Date Arthritis CVA (cerebrovascular accident) (HCC) 06/06/2022 Diabetes mellitus (HCC) Hypertension Obesity Past Surgical History: Procedure Laterality Date CATARACT EXTRACTION, BILATERAL CHOLECYSTECTOMY EYE SURGERY Bilateral 2017 cataracts TUBAL LIGATION 1987 Family History Problem Relation Age of Onset Heart disease Mother Diabetes Mother Cancer Father Social History Tobacco Use Smoking status: Never Smokeless tobacco: Never Vaping Use Vaping Use: Never used Substance Use Topics Alcohol use: Never Drug use: Never The following portions of the patient's history were reviewed and updated as appropriate: allergies, current medications, past family history, past medical history, past social history, past surgical history and problem list. Objective: BP (!) 148/73 (BP Location: Right arm, Patient Position: Sitting) Pulse 85 Temp 97.9 F (36.6 C) (Oral) Resp 17 Ht 5' 1 Wt 80.3 kg (177 lb 0.5 oz) SpO2 97% BMI 33.45 kg/m Wt Readings from Last 3 Encounters: 06/06/22 80.3 kg (177 lb 0.5 oz) 05/29/20 81.6 kg (180 lb) 04/17/20 81.6 kg (180 lb) Physical Exam: Physical Exam Vitals reviewed. Constitutional: Appearance: Normal appearance. She is well-developed. HENT: Head: Normocephalic and atraumatic. Cardiovascular: Rate and Rhythm: Normal rate and regular rhythm. Heart sounds: Normal heart sounds. No murmur heard. Pulmonary: Effort: Pulmonary effort is normal. No respiratory distress. Breath sounds: Normal breath sounds. No wheezing or rales. Abdominal: General: Bowel sounds are normal. There is no distension. Palpations: Abdomen is soft. Musculoskeletal: General: Swelling present. Skin: General: Skin is warm and dry. Findings: No erythema. Comments: Thick dry skin of both feet, with onychomycosis. Neurological: Mental Status: She is alert and oriented to person, place, and time. Laboratory Review: BP (!) 148/73 (BP Location: Right arm, Patient Position: Sitting) Pulse 85 Temp 97.9 F (36.6 C) (Oral) Resp 17 Ht 5' 1 Wt 80.3 kg (177 lb 0.5 oz) SpO2 97% BMI 33.45 kg/m Lab Results Component Value Date HGBA1C 11.1 (H) 04/18/2020 Glucose (mg/dL) Date Value 06/07/2022 224 (H) 06/07/2022 224 (H) 06/06/2022 372 (H) 06/06/2022 372 (H) Creatinine (mg/dL) Date Value 06/07/2022 0.58 (L) 06/07/2022 0.58 (L) 01/01/2018 0.58 (L) No results found for: CHOL, TRIG, HDL, LDLCALC, LDL Lab Results Component Value Date TSH 0.99 04/18/2020 No results found for: FREET4 Lab Results Component Value Date WBC 10.86 06/07/2022 HGB 14.7 06/07/2022 HCT 43.3 06/07/2022 MCV 85.9 06/07/2022 PLT 182 06/07/2022 This SmartLink has not been configured with any valid records. This SmartLink has not been configured with any valid records. Laboratory and Additional Data Reviewed: Laboratory 06/07/22 7:16 AM Radiology 06/07/22 7:16 AM Medications 06/07/22 7:16 AM Transcriptions 06/07/22 7:16 AM Thank you for this consultation, we will continue to follow this patient with you. Elisa Collins MD documented in this encounter [facility] 06-07-2022 Consult note Formatting of th is note is different from the original. Occupational Therapy OCCUPATIONAL THERAPY EVALUATION Dx: Slurred speech, accelerated hypertension Skilled Therapy Needs After Discharge Anticipate Resolution of Current Assessment Limitations Including: Mechanical Barriers, Social Support Are Skilled Therapy Services Needed After Discharge: Yes Intensity of Skilled Therapy: 2-3 days per week (If family able to provide increased assist) Anticipated Duration of Skilled Therapy: Duration 7 - 10 days DME Recommendation: Adaptive equipment kit (hand sewer shoes) DME Rationale: Patient's condition creates an increased risk of safety hazard without recommended equipment Rehab Potential: Good Outcomes Measures Prior Function Daily Activity Raw Score: 24 Prior Function Daily Activity % Impaired: 0% AM-PAC Daily Activity Raw Score: 19 AM-PAC Daily Activity % Impaired: 42.80% Occupational Therapy Assessment The patient's current functional participation deficits are grooming, UE dressing, LE dressing, bathing, toileting, home management, meal preparation, functional mobility, driving. This reduced independence will limit their life roles of premorbid level individual. The patient's co morbidities do affect patient performance in the above activities and roles. The performance deficits are a result of musculoskeletal, neurological impairment(s) in generalized debility including strength, balance, dexterity, coordination, acitvity tolerance, insight, safety, and knowledge deficit. The patient's home setup is a barrier, limitations of family / caregiver support is a barrier for return to prior level of function. 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 During the assessment, minimal to moderate modification of task was required and several treatment options were identified in the plan of care. This consultation required expanded review of the medical and therapy history. Activity Tolerance Activity Tolerance: Tolerates 20 - 30 min activity with multiple rests Therapy Precautions Orthotic Devices: No Weight Bearing Status: WFL General Rehab Precautions: Fall risk Cognition Overall Cognitive Status: Within Functional Limits Arousal/Alertness: Appropriate responses to stimuli Orientation Level: Oriented X4 Executive functioning: Insight Safety Judgment: Decreased awareness of need for assistance, Decreased awareness of need for safety Problem Solving: Assistance required to identify errors made, Assistance required to generate solutions, Assistance required to implement solutions Attention: Attends to quiet environment Hearing Status: WFL Social Interaction: Dysarthric, Verbose UE Function BUE AROM is WFL. Strength about 4/5 to 5/5 bilaterally, no unilateral weakness appreciated. Decreased speed and accuracy w/ finger/nose/target assessment bilaterally. ADL Lower Body Dressing: Set-up (donned/doffed bilateral shoes seated EOB) Toileting: Stand by assist (Pt performed her own anterior chito hygiene and clothing management following urination.) Functional Mobility: Contact guard assist, Adaptive equipment (Pt unsteady w/ ambulation to bathroom without AD, reaching out to [place] for stability. provided pt w/ FWW for amb back to bed and pt w/ improved balance) Bed Mobility Supine to Sit: Modified independent, Head of bed elevated Sit to Supine: Modified independent Functional Transfers Sit to Stand: Contact guard assist Bed to Chair Transfers: Contact guard assist Stand Pivot Transfers: Contact guard assist Toilet Transfers: Contact guard assist Additional Assessment Details Pt declines need for tub transfer bench. Home Living Obtained Home Living and PLOF info from: Patient Lives With: Alone Type of Home: Apartment Home Layout: One level, Laundry in basement (down 14 steps to laundry) Steps to enter home: Yes Rails to enter home: 1 rail Number of stairs to enter home: 6 (4+1+1) Bathroom Shower/Tub: Tub/shower unit Bathroom Toilet: Raised Prior Level of Function Receives Help From: Family Level of [place] - Transfers/Ambulation/Mobility: Independent with functional transfers, Independent with household ambulation, Independent with community ambulation Level of [place] - ADLs: Independent Level of [place] - Homemaking: Independent Driving: Patient drives Subjective Impression - Prior Function: Pt reports nieces and daughters can assist her as able Past Medical History: Diagnosis Date Arthritis CVA (cerebrovascular accident) (HCC) 06/06/2022 Diabetes mellitus (HCC) Hypertension Obesity Past Surgical History: Procedure Laterality Date CATARACT EXTRACTION, BILATERAL CHOLECYSTECTOMY EYE SURGERY Bilateral 2017 cataracts TUBAL LIGATION 1986 For complete objective data, detailed plan of care and patient education refer to: OT Evaluation flowsheet, OT Evaluation and Treatment flowsheet, OT Treatment flowsheet, patient Plan of Care, Plan of Care progress note, and Patient Education. This note stands as the current Discharge Summary upon patient discharge from the hospital or completion of Occupational Therapy Plan of Care. [facility] 06-07-2022 Consult note Formatting of th is note is different from the original. Speech Pathology General Cognition / Communication Eval Note Per chart review, Hilaria Lyons is a 72 y.o. female patient of Jaime Shine MD with past medical history of hypertension, hyperlipidemia, diabetes mellitus, CVA, moderate obesity body mass index 33.4 presented with slurred speech CT: No large vessel occlusion. A focal moderate stenosis each in the distal right P2 and left P3. Carotids and vertebral arteries show no significant stenosis or dissection. Per patient report, speech improving however, mildly different from baseline. Patient also reporting new mild memory and concentration deficits. Patient independent with IADL's at baseline. ST will continue to follow for speech and memory strategy education and therapy. Auditory Comprehension Severity rating: WFL Expressive Language Severity rating: Modified Indep/Extended time Motor Speech Severity ratin-90% (Mild) Cognition Severity ratin-100% (Supervision, Occasional Cues), 75-90% (Mild) Factors for returning to Prior Level of Function: Factors for Returning to Prior Level of Function Body Structure and Function: Neurologic impairment Explain Impairments: acute CVA, UTI Activities and Participation: Balance limitation and fall risk, Mobility limitation, ADL/IADL limitation Explain Limitations: suspect acute CVA, slurred speech, mild cognitive changes Environmental Factors: Home situation, Family/caregiver support Explain Environmental Factors: lives alone Personal Factors: Awareness of own capacity and performance Explain Personal Factors: good insight Skilled therapy needs: Skilled Therapy Needs: Are Skilled Therapy Services Needed After Discharge: No Functional Limitations: communication deficits, impaired memory Intensity of Skilled Therapy: 2-3 days per week Anticipated Duration of Skilled Therapy: Duration 7 - 10 days Prior function: Prior Function Reason for Referral: Stroke / neuro Primary Language: Mongolian 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) Education Level: College grad Living Situation: Alone, Independent with ADL's, Manages own medications, Manages own finances Prior Speech Deficit: No known previous deficits Prior Language Deficit: No known previous deficits Prior Cognitive Deficit: No known previous deficits Other pertinent diagnoses affecting cog/comm/voice: CVA Baseline Assessment Subjective Impression: Alert, Pleasant Mood, Cooperative Respiratory Status: Room air Oral motor: Oral/Motor Oral Motor Impression-Severity Scale: WFL Labial ROM: Within Functional Limits Labial Symmetry at Rest: Within Functional Limits Labial Strength: Within Functional Limits Labial Sensation: Within Functional Limits Lingual ROM: Within Functional Limits Lingual Symmetry: Within Functional Limits Lingual Strength: Within Functional Limits Lingual Sensation: Within Functional Limits Velum: Within Functional Limits Mandible: Within Functional Limits Facial ROM: Within Functional Limits Facial Symmetry at Rest: Within Functional Limits Facial Sensation: Within Functional Limits Apraxia: None present Auditory Comprehension: Auditory Comp Impression-Severity Scale: WFL Visual Perception: Visual Perception: No acute visual changes Reading Comprehension: Reading Comp Impression-Severity: Requires further assessment Expressive Language: Expressive Language Impression-Severity: Modified Indep/Extended time Primary Mode of Expression: Verbal, Basic conversation level, Complex conversation level Aphasia: None present Motor Speech: Motor Speech Impression Severity: 75-90% (Mild) Speech Intelligibility: Exceptions to WFL Conversation: 90-100% (Supervision, Occasional Assist), 75-90% (Mild) Dysarthria Characteristics: Imprecise articulation, Slow rate (patient reports hesitations with speech) Cognitive-Communication: Speech Cognition Impression-Severity: 90-100% (Supervision, Occasional Cues), 75-90% (Mild) Orientation Level: Oriented x4 Attention: Within Functional Limits Memory: Exceptions to WFL Immediate recall: 75-90% (Mild) Delayed recall: 75-90% (Mild) Additional Observation: Uses memory strategies Recommended memory strategies: Written cues (lists, notes, etc), Set alarms, Daily principal planner/Calendar use Safety/Judgement: Within Functional Limits Insight: Within function limits Task Initiation: WFL Flexibility of Thought: Within functional limits Pragmatics: No overt deficits Recommended general cognitive strategies: Use of external visual aids (lists, notes, etc) Patient O-Log (Orientation Log) Score - Cut off score 25 or better on two separate administrations: Orientation-Log Orientation-log: Yes City: [address]: 3 Name of Hospital: 3 Month: 3 Date: 3 Year: 3 Day of Week: 3 Clock Time: 3 Etiology / Event: 3 Pathology Deficits: 3 Orientation Log Total Score (out of 30): 30 Orientation Log Impression - ORTHOTIC TECHNICIAN: Will discontinue the O-log based on patient achieving 25 or better on two separate administrations. Repeat Orientation-Log: No Patient Cog-Log (Cognitive Log) Score - Cut off score 25 or better: Cognitive-Log Cognitive-log: Yes Date: 3 Clock Time: 3 Name of Hospital: 3 Repeat Address: 2 20 to 1: 3 Months Reversed: 3 30 Seconds: 3 Fist Edge-Palm: 2 Go / No-Go: 3 Address Recall: 2 Cognitive Log Total Score (out of 30): 27 Cognitive Log Impression: Score is at cut-off and suggests within functional limits attention/concentration and memory. However, given patient's endorsement of acute attention and memory changes, errors could also reflect deficits of attention/concentration and memory. ORTHOTIC TECHNICIAN Caregiver Readiness: ORTHOTIC TECHNICIAN Caregiver Readiness Working toward discharge home: Yes ORTHOTIC TECHNICIAN Caregiver Training: Completed (patient own caregiver) Speech Plan: Further acute Speech Therapy services indicated: Yes Role of ST Discussed: With patient Risk/Benefits of ST Discussed: With patient Patient Goal for Treatment: To go home Rehab Potential: Good Further Recommendations: Speech/language/cognitive evaluation Past Medical History: Diagnosis Date Arthritis CVA (cerebrovascular accident) (HCC) 06/06/2022 Diabetes mellitus (HCC) Hypertension Obesity Past Surgical History: Procedure Laterality Date CATARACT EXTRACTION, BILATERAL CHOLECYSTECTOMY EYE SURGERY Bilateral 2017 cataracts TUBAL LIGATION 1986 For complete objective data, detailed plan of care, and education refer to: Speech Comm/Cog Eval flow sheet, as well as patient Plan of Care and Education documentation. This note stands as the current Discharge Summary upon patient discharge from the hospital or completion of Speech Pathology Plan of Care [facility] 06-07-2022 Consult note Formatting of th is note is different from the original. Speech Pathology Bedside Swallow Evaluation Recommendations: Further Eval Rxs: Cognitive-communication evaluation PO Recommendations: NDD diet NDD diet recommendation: Regular solids, Thin liquids Compensatory Strategies: Eat/feed slowly, Alternate solids and liquids Postures: Sit as upright as possible for all oral intake Food Presentation: Small bites, Average bites Liquid Presentation: Small sips, Average sips Medication Presentation: Whole with thins, Whole in puree, Per Patient Preference Amount of Supervision: Set up assistance with tray Treatment Techniques: No speech therapy for swallowing Further Recommendations: Oral care TID Discharge Recommendations: Skilled Therapy Needs: Are Skilled Therapy Services Needed After Discharge: No Functional Limitations: communication deficits, impaired memory Intensity of Skilled Therapy: 2-3 days per week Anticipated Duration of Skilled Therapy: Duration 7 - 10 days Prior Function: Reason for Referral: Stroke / neuro Prior Swallow Deficit: No known previous deficits Swallow Complaint: (no swallow complaint) Other Pertinent Diagnoses Affecting Swallow: CVA Diet Prior to BSE: Regular, Thin liquid Primary Language: Mongolian Baseline Assessment: Subjective Impression: Alert, Pleasant Mood, Cooperative Respiratory Status: Room air Dentition: Partial dentures, Some missing teeth Self-Feeding Barriers: Functional for self-feeding Patient Positioning: Upright in bed Volitional Cough: Strong Baseline Cough: Dry Secretion Management: Adequate Volitional Swallow: Present Oral Motor: Oral Motor Impression-Severity Scale: WFL Labial ROM: Within Functional Limits Labial Symmetry at Rest: Within Functional Limits Labial Strength: Within Functional Limits Labial Sensation: Within Functional Limits Lingual ROM: Within Functional Limits Lingual Symmetry: Within Functional Limits Lingual Strength: Within Functional Limits Lingual Sensation: Within Functional Limits Velum: Within Functional Limits Mandible: Within Functional Limits Facial ROM: Within Functional Limits Facial Symmetry at Rest: Within Functional Limits Facial Sensation: Within Functional Limits Apraxia: None present Voice: Breath Support: WFL Vocal Quality: WFL Vocal Intensity: WFL Consistencies Assessed: CONSISTENCY PRESENTATION ORAL (SIGNS / SYMPTOMS) PHARYNGEAL (SIGNS / SYMPTOMS) ICE THIN Cup Within functional limits Within Functional Limits NECTAR HONEY PUREE SOFT SOLID Self Fed Within functional limits Within Functional Limits Patient demonstrated tolerance of regular diet with thin liquids, no overt s/sx of aspiration. Patient reporting no hx of swallowing difficulties. Recommend continued regular diet. No further ST for swallowing recommended. Impressions-Severity Level: Oral Severity Scale: WNL Pharyngeal Severity Scale: WNL Factors for Returning to PLOF: Body Structure and Function: Neurologic impairment Explain Impairments: acute CVA, UTI Activities and Participation: Balance limitation and fall risk, Mobility limitation, ADL/IADL limitation Explain Limitations: suspect acute CVA, slurred speech, mild cognitive changes Environmental Factors: Home situation, Family/caregiver support Explain Environmental Factors: lives alone Personal Factors: Awareness of own capacity and performance Explain Personal Factors: good insight ORTHOTIC TECHNICIAN Caregiver Readiness: ORTHOTIC TECHNICIAN Caregiver Readiness Working toward discharge home: Yes ORTHOTIC TECHNICIAN Caregiver Training: Completed (patient own caregiver) Speech Plan: Further acute Speech Therapy services indicated: Yes Role of ST Discussed: With patient Risk/Benefits of ST Discussed: With patient Patient Goal for Treatment: To go home Rehab Potential: Good Further Recommendations: Speech/language/cognitive evaluation For complete objective data, detailed plan of care, and education refer to: Speech Bedside Swallow Evaluation flow sheet, as well as patient Plan of Care and Education documentation. This note stands as the current Discharge Summary upon patient discharge from the hospital or completion of Speech Pathology Plan of Care. [facility] 06-07-2022 Consult note Associated Order (s): IP CONSULT TO ENDOCRINOLOGY Patient ID: Patient Name: Hilaria Lyons Admit Date: 06/06/2022 MR #: [id number] : 1950 Current location: [facility] Physicians: Jaime Shine MD (Family); Dr. London (Referring) Reason for consult: Type 2 diabetes out of control Assessment/Plan: Dx: Type 2 diabetes, under inadequate control Currently taking as outpatient: Metformin 1000 mg twice daily Glimepiride 4 mg twice daily Current Hemoglobin A1C= Lab Results Component Value Date HGBA1C 11.1 (H) 04/18/2020 HGBA1C 11.2 (H) 01/01/2018 NOTES: 06/07 BG and labs reviewed. Na 141, K 3.5, Creat 0.52, eGFR 99, Ca 9.1, WBC10.86, Hgb 14.7, Hct 43.3, Plt 182k. Will convert to QID insulin regimen. Blood Glucoses: 06/06 448---444 06/07 230---204---344 Plan: 1. Rx changes: Humalog insulin: 16 units at breakfast; 12 units at lunch; 12 units at supper Lantus insulin: 24 units at bedtime Humalog sliding scale Metformin 1000 mg twice daily Glimepiride 4 mg twice daily Needs outpatient podiatry care 2. Education: Reviewed ABCs of diabetes management (respective goals in parentheses): A1C (7.0-8.0), blood pressure (<130/80), and cholesterol (LDL <100). Referral to Diabetes Education Referral to Nutrition therapy Subjective: Brief HPI: Patient is a 72 year old female with hx of Type 2 DM, HTN, hyperlipidmia, who presented to ED with slurred speech and right arm and hand weakness. 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 She was started on IV insulin and IV hydration, with improvement in BG. She states she was prescribed 20 U Lantus one year ago and she did take it; however, 6 months ago was not able to get a refill and did not follow through with her PCP to see about a refill.She does know how to take insulin. Reports her right sided weakness is better. Patient has had diabetes for 10-12 years. Patient is currently taking Metformin and glimepiride. Currently the patient is receiving IV insulin. Blood sugar levels since admission have been ranging from 204-660 mg/dL. Current monitoring regimen: home blood tests - unsure Complications of diabetes include: Retinopathy: Negative Nephropathy: Negative Peripheral Neuropathy: Negative Autonomic Neuropathy: Negative Admission labs 06/06/2022 sodium 134, potassium 4.1, glucose 660, CO2 27, creatinine 0.84, estimated GFR 74, calcium 10.2, WBC 10.23, hemoglobin 16.1, hematocrit 45.1, platelet count 157,000, urinalysis greater than 500 glucose trace ketones 9 WBCs Allergies: Allergies Allergen Reactions [place] Hives Poison Rhonda Extract Poison [place] Extract Unknown Penicillins GI Intolerance Home Medications: Outpatient Medications Marked as Taking for the 06/06/22 encounter (Hospital Encounter): ACETAMINOPHEN ORAL, Take 500 mg by mouth every 6 (six) hours as needed . amLODIPine (NORVASC) 10 MG tablet, Take 1 (one) tablet (10 mg total) by mouth daily . carvediloL (COREG) 25 MG tablet, Take 1 (one) tablet (25 mg total) by mouth 2 (two) times a day . cholecalciferol, vitamin D3, 50 mcg (2,000 unit) Tab, Take 1 (one) tablet (2,000 Units total) by mouth . cloNIDine HCL (CATAPRES) 0.1 MG tablet, Take 1 (one) tablet (0.1 mg total) by mouth 4 (four) times a day . glimepiride (AMARYL) 4 MG tablet, Take 1 (one) tablet (4 mg total) by mouth 2 (two) times a day . ibuprofen (ADVIL,MOTRIN) 200 MG tablet, Take 2 (two) tablets (400 mg total) by mouth every 6 (six) hours as needed for pain . lisinopriL-hydrochlorothiazide (PRINZIDE,ZESTORETIC) 20-12.5 mg per tablet, Take 2 (two) tablets by mouth daily . metFORMIN (GLUCOPHAGE) 1000 MG tablet, Take 1 (one) tablet (1,000 mg total) by mouth 2 (two) times a day with meals . multivitamin (THERAGRAN) per tablet, Take 1 (one) tablet by mouth daily . Current Medications: aspirin 81 mg Oral Daily atorvastatin 40 mg Oral Nightly carvediloL 6.25 mg Oral BID cefTRIAXone (ROCEPHIN) IVPB 2,000 mg Intravenous Q24H glimepiride 4 mg Oral BID metFORMIN 1,000 mg Oral BID with meals multivitamin 1 tablet Oral Daily potassium chloride 20 mEq Intravenous Q1H if indicated in MAR calculator senna-docusate 1 tablet Oral BID sodium chloride (PF) 5 mL Intravenous Q8H DAMARIS sodium chloride (PF) 5 mL Intravenous Q8H DAMARIS sodium chloride (PF) 5 mL Intravenous Q8H DAMARIS acetaminophen, aluminum-magnesium hydroxide-simethicone, bisacodyL, dextrose 5 % and sodium chloride 0.45 %, dextrose 5 % and sodium chloride 0.45 % with KCl 20 mEq/L, labetalol OR hydrALAZINE, magnesium hydroxide, melatonin, morphine injection, nalOXone AND Notify physician AND naloxone, nitroGLYCERIN, ondansetron OR ondansetron, oxyCODONE-acetaminophen, senna, Saline lock IV AND sodium chloride (PF) AND sodium chloride (PF) AND sodium chloride 0.9 %, Saline lock IV AND sodium chloride (PF) AND sodium chloride (PF) AND sodium chloride 0.9 %, Saline lock IV AND sodium chloride (PF) AND sodium chloride (PF) AND sodium chloride 0.9 %, traZODone Review of Systems: Review of Systems Constitutional: Positive for fatigue. Eyes: Negative for visual disturbance. Respiratory: Negative for shortness of breath. Cardiovascular: Negative for chest pain. Gastrointestinal: Negative for constipation, diarrhea, nausea and vomiting. Endocrine: Positive for polydipsia. Skin: Negative for wound. Dry skin and onychomycosis toenails Neurological: Positive for speech difficulty and weakness. Psychiatric/Behavioral: Negative for sleep disturbance. History: Past Medical History: Diagnosis Date Arthritis CVA (cerebrovascular accident) (HCC) 06/06/2022 Diabetes mellitus (HCC) Hypertension Obesity Past Surgical History: Procedure Laterality Date CATARACT EXTRACTION, BILATERAL CHOLECYSTECTOMY EYE SURGERY Bilateral 2017 cataracts TUBAL LIGATION 1987 Family History Problem Relation Age of Onset Heart disease Mother Diabetes Mother Cancer Father Social History Tobacco Use Smoking status: Never Smokeless tobacco: Never Vaping Use Vaping Use: Never used Substance Use Topics Alcohol use: Never Drug use: Never The following portions of the patient's history were reviewed and updated as appropriate: allergies, current medications, past family history, past medical history, past social history, past surgical history and problem list. Objective: BP (!) 148/73 (BP Location: Right arm, Patient Position: Sitting) Pulse 85 Temp 97.9 F (36.6 C) (Oral) Resp 17 Ht 5' 1 Wt 80.3 kg (177 lb 0.5 oz) SpO2 97% BMI 33.45 kg/m Wt Readings from Last 3 Encounters: 06/06/22 80.3 kg (177 lb 0.5 oz) 05/29/20 81.6 kg (180 lb) 04/17/20 81.6 kg (180 lb) Physical Exam: Physical Exam Vitals reviewed. Constitutional: Appearance: Normal appearance. She is well-developed. HENT: Head: Normocephalic and atraumatic. Cardiovascular: Rate and Rhythm: Normal rate and regular rhythm. Heart sounds: Normal heart sounds. No murmur heard. Pulmonary: Effort: Pulmonary effort is normal. No respiratory distress. Breath sounds: Normal breath sounds. No wheezing or rales. Abdominal: General: Bowel sounds are normal. There is no distension. Palpations: Abdomen is soft. Musculoskeletal: General: Swelling present. Skin: General: Skin is warm and dry. Findings: No erythema. Comments: Thick dry skin of both feet, with onychomycosis. Neurological: Mental Status: She is alert and oriented to person, place, and time. Laboratory Review: BP (!) 148/73 (BP Location: Right arm, Patient Position: Sitting) Pulse 85 Temp 97.9 F (36.6 C) (Oral) Resp 17 Ht 5' 1 Wt 80.3 kg (177 lb 0.5 oz) SpO2 97% BMI 33.45 kg/m Lab Results Component Value Date HGBA1C 11.1 (H) 04/18/2020 Glucose (mg/dL) Date Value 06/07/2022 224 (H) 06/07/2022 224 (H) 06/06/2022 372 (H) 06/06/2022 372 (H) Creatinine (mg/dL) Date Value 06/07/2022 0.58 (L) 06/07/2022 0.58 (L) 01/01/2018 0.58 (L) No results found for: CHOL, TRIG, HDL, LDLCALC, LDL Lab Results Component Value Date TSH 0.99 04/18/2020 No results found for: FREET4 Lab Results Component Value Date WBC 10.86 06/07/2022 HGB 14.7 06/07/2022 HCT 43.3 06/07/2022 MCV 85.9 06/07/2022 PLT 182 06/07/2022 This SmartLink has not been configured with any valid records. This SmartLink has not been configured with any valid records. Laboratory and Additional Data Reviewed: Laboratory 06/07/22 7:16 AM Radiology 06/07/22 7:16 AM Medications 06/07/22 7:16 AM Transcriptions 06/07/22 7:16 AM Thank you for this consultation, we will continue to follow this patient with you. Elisa Collins MD [facility] 06-06-2022 Emergency department Note Pt's daughter Amina update on pts status, pt [facility] 06-06-2022 Emergency department Note Pt's daughter Amina update on pts status, pt Hourly rounding assessment completed on the patient. [x] Patient updated on plan of care [x] All comfort needs addressed [x] Patient updated on duration of visit All questions answered, patient denies further needs. Call light within reach. Daughter called asking for an update on patient. This PSA notified daughter that patient is being admitted and she can call back later to find out what bed number Pt back to CT for CTA AMINA BETTS RN (DAUGHTER) [phone] Bed: 35 Expected date: Expected time: Means of arrival: Comments: CHASE JEFFREY Pt was brought in by EMS for concerns of a stroke. Pt reports aphasia and right arm numbness/weakness starting at 2PM today. Pt also has right sided facial droop. Pt has a LAMS score of 2. Odilia Goodman at [facility], this RN called stroke alert at this time. documented in this encounter [facility] 06-06-2022 Emergency department Note Hourly rounding assessment completed on the patient. [x] Patient updated on plan of care [x] All comfort needs addressed [x] Patient updated on duration of visit All questions answered, patient denies further needs. Call light within reach. [facility] 06-06-2022 History and physical note [facility] [place] HISTORY AND PHYSICAL -- [facility] Patient Name: Hilaria Lyons : 1950 MR #: [id number] Admit Date: 06/06/2022 Physicians: Jaime Shine MD (Family); No ref. provider found (Referring) Hilaria Lyons is a 72 y.o. female patient of Jaime Shine MD with past medical history of hypertension, hyperlipidemia, diabetes mellitus, CVA, moderate obesity body mass index 33.4 presented with slurred speech Slurred speech to rule out CVA Evaluated by telemetry neurologist Aspirin Statin Speech evaluation/PT OT and social service consult for discharge plan TSH Hemoglobin A1c Vitamin B12 folate levels Neurology consult Defer MRI order to neurology CT head showed no acute intracranial abnormality. Atherosclerotic calcification and chronic microvascular ischemia CT angiogram head and neck showed No large vessel occlusion. A focal moderate stenosis each in the distal right P2 and left P3. Carotids and vertebral arteries show no significant stenosis or dissection. Accelerated hypertension Allow permissive hypertension for now Hold antihypertensive medication (Norvasc 10 mg daily, clonidine point 1 mg 4 times daily, hydralazine 25 mg 3 times daily, lisinopril/HCTZ 20/12.5 mg daily) IV hydralazine and labetalol as needed Uncontrolled diabetes mellitus with hyperglycemia Blood sugar on admission 660 Insulin gtt. closely monitor electrolytes. Diabetic diet Hemoglobin A1c Consider switching to long-acting insulin in the next 12 hours. Acute lower urinary tract infection Urine culture IV Rocephin Hirsutism Follow-up with endocrinology as an outpatient Moderate obesity Body mass index 33.45 Encouraged weight loss and lifestyle modification Code Status: Full Code - Unverified Medication Reconciliation: Verified Residence prior to admission: house or apartment Was patient transferred from outlying hospital or ED no Quality Measures DVT Prophylaxis: lovenox [place]ahan Catheter: absent Risk variables present on admission:None. Please see assessment and plan for further details. Chief Complaint slurred speech History of Present Illness Hilaria Lyons is a 72 y.o. female patient of Jaime Shine MD with past medical history of hypertension, hyperlipidemia, diabetes mellitus, CVA, moderate obesity body mass index 33.4 presented with slurred speech of 1 week duration. As per patient condition started with persistent headache diarrhea nausea last 05/31/2022, other associated symptoms slurred speech and right upper extremity weakness. Patient denied any visual loss diplopia sensory change confusion. Patient denied any chest pain shortness of breath lightheadedness dizziness. Denied any abdominal pain change of bowel habits. Denied any orthopnea paroxysmal nocturnal dyspnea. Patient could not take her medications in the last 2 days due to nausea and vomiting. Past Medical History Past Medical History: Diagnosis Date Arthritis CVA (cerebrovascular accident) (HCC) 06/06/2022 Diabetes mellitus (HCC) Hypertension Obesity Past Surgical History Past Surgical History: Procedure Laterality Date CATARACT EXTRACTION, BILATERAL CHOLECYSTECTOMY EYE SURGERY Bilateral 2017 cataracts TUBAL LIGATION 1987 Family History Family History Problem Relation Age of Onset Heart disease Mother Diabetes Mother Cancer Father Social History Social History Tobacco Use Smoking Status Never Smokeless Tobacco Never Social History Substance and Sexual Activity Alcohol Use Never Social History Substance and Sexual Activity Drug Use Never Allergy Information I have reviewed the patient's allergies. [place], Poison rhonda extract, Poison oak extract, and Penicillins Home Medications Home medications were reviewed. Review Of Systems All systems have been reviewed and are negative except as noted in HPI or below Physical Examination BP (!) 174/95 Pulse 86 Temp 98.9 F (37.2 C) Resp 17 Ht 5' 1 Wt 82.6 kg (182 lb) SpO2 94% BMI 34.39 kg/m General Appearance: alert; chronically ill appearing; in no acute distress HEENT: Head- normocephalic; Eyes- EOMI, sclera anicteric; Ears- hearing intact; Nose- no nasal discharge; Throat- mucous membranes moist Cardiovascular: regular rate and rhythm; normal S1, S2; no murmurs, rubs, clicks or gallops; no peripheral edema Respiratory: lungs clear to auscultation; without wheezes, rales or rhonchi; on room air Abdomen: soft, non-tender, non-distended; positive bowel sounds Neurological: oriented x 3; slow/speech; no focal findings or movement disorder noted Musculoskeletal: no significant deformity or tenderness to palpation Skin: normal coloration; no obvious rashes, lesions or skin breakdown Psych: normal mood and affect Laboratory and Additional Data Reviewed Laboratory 06/07/22 12:06 AM Radiology 06/07/22 12:06 AM Cardiology 06/07/22 12:06 AM Medications 06/07/22 12:06 AM Transcriptions 06/07/22 12:06 AM [facility] 06-06-2022 History and physical note [facility] [place] HISTORY AND PHYSICAL -- [facility] Patient Name: Hilaria Lyons : 1950 MR #: [id number] Admit Date: 06/06/2022 Physicians: Jaime Shine MD (Family); No ref. provider found (Referring) Hilaria Lyons is a 72 y.o. female patient of Jaime Shine MD with past medical history of hypertension, hyperlipidemia, diabetes mellitus, CVA, moderate obesity body mass index 33.4 presented with slurred speech Slurred speech to rule out CVA Evaluated by telemetry neurologist Aspirin Statin Speech evaluation/PT OT and social service consult for discharge plan TSH Hemoglobin A1c Vitamin B12 folate levels Neurology consult Defer MRI order to neurology CT head showed no acute intracranial abnormality. Atherosclerotic calcification and chronic microvascular ischemia CT angiogram head and neck showed No large vessel occlusion. A focal moderate stenosis each in the distal right P2 and left P3. Carotids and vertebral arteries show no significant stenosis or dissection. Accelerated hypertension Allow permissive hypertension for now Hold antihypertensive medication (Norvasc 10 mg daily, clonidine point 1 mg 4 times daily, hydralazine 25 mg 3 times daily, lisinopril/HCTZ 20/12.5 mg daily) IV hydralazine and labetalol as needed Uncontrolled diabetes mellitus with hyperglycemia Blood sugar on admission 660 Insulin gtt. closely monitor electrolytes. Diabetic diet Hemoglobin A1c Consider switching to long-acting insulin in the next 12 hours. Acute lower urinary tract infection Urine culture IV Rocephin Hirsutism Follow-up with endocrinology as an outpatient Moderate obesity Body mass index 33.45 Encouraged weight loss and lifestyle modification Code Status: Full Code - Unverified Medication Reconciliation: Verified Residence prior to admission: house or apartment Was patient transferred from outlying hospital or ED no Quality Measures DVT Prophylaxis: lovenox [place]ahan Catheter: absent Risk variables present on admission:None. Please see assessment and plan for further details. Chief Complaint slurred speech History of Present Illness Hilaria Lyons is a 72 y.o. female patient of Jaime Shine MD with past medical history of hypertension, hyperlipidemia, diabetes mellitus, CVA, moderate obesity body mass index 33.4 presented with slurred speech of 1 week duration. As per patient condition started with persistent headache diarrhea nausea last 05/31/2022, other associated symptoms slurred speech and right upper extremity weakness. Patient denied any visual loss diplopia sensory change confusion. Patient denied any chest pain shortness of breath lightheadedness dizziness. Denied any abdominal pain change of bowel habits. Denied any orthopnea paroxysmal nocturnal dyspnea. Patient could not take her medications in the last 2 days due to nausea and vomiting. Past Medical History Past Medical History: Diagnosis Date Arthritis CVA (cerebrovascular accident) (HCC) 06/06/2022 Diabetes mellitus (HCC) Hypertension Obesity Past Surgical History Past Surgical History: Procedure Laterality Date CATARACT EXTRACTION, BILATERAL CHOLECYSTECTOMY EYE SURGERY Bilateral 2017 cataracts TUBAL LIGATION 1987 Family History Family History Problem Relation Age of Onset Heart disease Mother Diabetes Mother Cancer Father Social History Social History Tobacco Use Smoking Status Never Smokeless Tobacco Never Social History Substance and Sexual Activity Alcohol Use Never Social History Substance and Sexual Activity Drug Use Never Allergy Information I have reviewed the patient's allergies. [place], Poison rhonda extract, Poison oak extract, and Penicillins Home Medications Home medications were reviewed. Review Of Systems All systems have been reviewed and are negative except as noted in HPI or below Physical Examination BP (!) 174/95 Pulse 86 Temp 98.9 F (37.2 C) Resp 17 Ht 5' 1 Wt 82.6 kg (182 lb) SpO2 94% BMI 34.39 kg/m General Appearance: alert; chronically ill appearing; in no acute distress HEENT: Head- normocephalic; Eyes- EOMI, sclera anicteric; Ears- hearing intact; Nose- no nasal discharge; Throat- mucous membranes moist Cardiovascular: regular rate and rhythm; normal S1, S2; no murmurs, rubs, clicks or gallops; no peripheral edema Respiratory: lungs clear to auscultation; without wheezes, rales or rhonchi; on room air Abdomen: soft, non-tender, non-distended; positive bowel sounds Neurological: oriented x 3; slow/speech; no focal findings or movement disorder noted Musculoskeletal: no significant deformity or tenderness to palpation Skin: normal coloration; no obvious rashes, lesions or skin breakdown Psych: normal mood and affect Laboratory and Additional Data Reviewed Laboratory 06/07/22 12:06 AM Radiology 06/07/22 12:06 AM Cardiology 06/07/22 12:06 AM Medications 06/07/22 12:06 AM Transcriptions 06/07/22 12:06 AM documented in this encounter [facility] 06-06-2022 Emergency department Note Daughter called asking for an update on patient. This PSA notified daughter that patient is being admitted and she can call back later to find out what bed number [facility] 06-06-2022 Note Formatting of this n ote might be different from the original. ED Attestation: I have reviewed the Advanced Practice Provider's (OLIVE's) documentation. In addition, I have personally introduced myself to the patient (face to face), and have taken her history and performed an examination. I agree with the physical findings, management, clinical impression and disposition. I did perform the substantive portion of this patient's encounter, including all aspects of the MDM. In brief, Hilaria is a 72 y.o. female who presents with a chief complaint of Stroke Alert. Patient been having some facial droop and difficulty speaking over the last for 5 hours. Had a similar episode yesterday but it persisted today so eventually called the ambulance came in for evaluation. Arrival here very pleasant lady but does have difficulty speaking. Stroke alert was initiated. On CT it does appear that she may have had a small stroke but no evidence of hemorrhage at this time. Patient is not on blood thinners. Known to be diabetic with a glucose without evidence of DKA. Her sugar came back at about 660. Patient states she has been out of her insulin for several days. She has been try to reach out to her insurance company and send her new insulin supplies and medication but they have not as of yet. She was not surprised that her glucose was over 600 today. Again clinically not in DKA. Patient was given a dose of regular insulin as well some IV hydration. Also urinalysis came back showing evidence of urinary tract infection. Urine culture was obtained and a dose of Rocephin was given as well. Regarding the stroke, aspirin was given and patient will be admitted to hospital team with consult to neurology for further evaluation work-up at this time. (Please note that portions of this note have been completed with a voice recognition software. Efforts were made to correct any errors, but occasionally words are mis-transcribed.) [facility] Work Phone: 06-06-2022 Note Associated Order(s): ECG 12 Lead ECG 12 Lead Date/Time: 06/06/2022 7:02 PM Performed by: Jaime Coats DO Authorized by: Jaime Coats DO Interpreted by ED attending physician Comparison: not compared with previous ECG Previous ECG: no previous ECG available Rhythm: sinus rhythm BPM: 72 Conduction: conduction normal ST Segments: ST segments normal T Waves: T waves normal [facility] 06-06-2022 Note Formatting of this n ote might be different from the original. Critical Care Time: I personally saw this patient and independently provided 30 minutes of non-concurrent, critical care time, out of the total shared critical care time provided. This was due to my concern for neurological concerns. Please see my MDM section of my ED note, for further details and management. In addition, this was independent and exclusive of separate billable procedures. [facility] 06-06-2022 Emergency department Note Pt back to CT for CTA [facility] 06-06-2022 Note Formatting of this n ote might be different from the original. [facility] Assessement Note History of Present Illness: I was emergently consulted by Emergency Department at [facility] for a stroke alert evaluation. 72-year-old female with a past medical history of hypertension, obesity, and type 2 diabetes who presents to [facility] for evaluation of trouble talking/slurred speech. Last Thursday she had an episode of slurred speech and trouble getting her words out that lasted for few hours and spontaneously resolved prior to EMS arriving. This is also in the setting of hypertension, headache and diarrhea. Today last known well at 2 PM. Shortly after this he was discovered to have a slurred speech and trouble getting her words out. He was also noted to be right facial droop and some mild right hand weakness. Symptoms persisted and family raise concerns prompting her to seek medical attention. No witnessed seizure-like movements activity. Denies headache today, visual loss, diplopia, sensory change, confusion, incoordination, vertigo, chest pain, SOB. On arrival to [facility] ED the patient had right facial droop and upper motor neuron pattern and severe dysarthria near anarthria. She is awake alert and cooperative and can name all objects correctly although severely dysarthric and can follow complex commands; hence no signs of aphasia. There is no unilateral weakness or sensory loss. Normal AMRs and dexterity in both hands. EXAM: NIH Stroke Scale Interval: Baseline Time: 6:38 PM Person Administering Scale: Henry Melendez NIH Stroke Scale Level of Consciousness (1a.): Alert, keenly responsive LOC Questions (1b.): Answers both questions correctly LOC Commands (1c.): Performs both tasks correctly Best Gaze (2.): Normal Visual (3.): No visual loss Facial Palsy (4.): Partial paralysis Motor Arm, Left (5a.): No drift Motor Arm, Right (5b.): No drift Motor Leg, Left (6a.): No drift Motor Leg, Right (6b.): No drift Limb Ataxia (7.): Absent Sensory (8.): Normal, no sensory loss Best Language (9.): No aphasia Dysarthria (10.): Severe dysarthria, patient's speech is so slurred as to be unintelligible in the absence of or out of proportion to any dysphasia, or is mute/anarthric Extinction and Inattention (11.) (Formerly Neglect): No abnormality Total: 4 Other examination findings: Imaging Findings (Reviewed by me preliminarily, official read pending): CT head (06/06/2022): No acute intracranial abnormalities; ASPECTS 10 Impression: Etiology concerning for ischemic infarction. Weakness pattern is not consistent with a Granda's palsy. Patient was not candidate for IV tPA due to remote LKW Plan: ED: CTA head/neck in ED if kidney function is permissible. Permissive HTN. Aspirin 325 mg once or 300. NPO till swallow evaluation Hospital: Disposition: Neurology consult MR brain w/o contrast NPO till swallow evaluation Aspirin 81. No echo unless embolic stroke Permissive HTN LDL, A1c PT/OT/ST SQ heparin Henry Melendez MD Cerebrovascular Neurology [facility] Work Phone: 06-06-2022 Emergency department Note AMINA BETTS RN (DAUGHTER) [phone] [facility] 06-06-2022 Emergency department Note Pt to CT [facility] 06-06-2022 Emergency department Note Bed: 35 Expected date: Expected time: Means of arrival: Comments: CHASE MURPHY [facility] 06-06-2022 Emergency department Triage note Pt was brought in by EMS for concerns of a stroke. Pt reports aphasia and right arm numbness/weakness starting at 2PM today. Pt also has right sided facial droop. Pt has a LAMS score of 2. Odilia Goodman at [facility], this RN called stroke alert at this time. [facility] Evaluation note Diagnosis Partial seizure disorder (HCC)- Primary Localization-related (focal) (partial) epilepsy and epileptic syndromes with simple partial seizures, without mention of intractable epilepsy Acute ischemic stroke (HCC) Unspecified cerebral artery occlusion with cerebral infarction Hyperglycemia Other abnormal glucose Acute UTI Urinary tract infection, site not specified Acute CVA (cerebrovascular accident) (HCC) Meningioma (HCC) Benign neoplasm of cerebral meninges Partial seizure disorder (HCC) Localization-related (focal) (partial) epilepsy and epileptic syndromes with simple partial seizures, without mention of intractable epilepsy Type 2 diabetes mellitus with hyperglycemia, with long-term current use of insulin (HCC) Type 2 diabetes mellitus with hyperglycemia (HCC) Acute UTI Urinary tract infection, site not specified Meningioma (HCC) Benign neoplasm of cerebral meninges [facility] Diagnosis Type 2 diabetes mellitus with hypoglycemia without coma, with long-term current use of insulin (HCC)- [facility] Diagnosis Type 2 diabetes mellitus with hyperglycemia, with long-term current use of insulin (HCC)- Primary Primary hypertension Unspecified essential hypertension [facility] Diagnosis Type 2 diabetes mellitus with hyperglycemia, with long-term current use of insulin (HCC)- Primary Primary hypertension Unspecified essential hypertension [facility] Diagnosis Well controlled type 2 diabetes mellitus (HCC)- [facility] Diagnosis Type 2 diabetes mellitus without complication, without long-term current use of insulin- Primary Essential hypertension Unspecified essential hypertension Mixed hyperlipidemia Seizure disorder Unspecified epilepsy without mention of intractable epilepsy Meningioma Benign neoplasm of cerebral meninges [facility] Tachy[facility]- Primary Unspecified tachycardia Essential hypertension Unspecified essential hypertension Class 1 obesity due to excess calories with serious comorbidity and body mass index (BMI) of 34.0 to 34.9 in adult Type 2 diabetes mellitus without complication, with long-term current use of insulin (HCC) Meningioma (HCC)- Primary Benign neoplasm of cerebral meninges Cerebrovascular accident (CVA), unspecified mechanism (HCC) Partial seizure disorder (HCC) Localization-related (focal) (partial) epilepsy and epileptic syndromes with simple partial seizures, without mention of intractable epilepsy Well controlled type 2 diabetes mellitus (HCC)- Primary documented in this encounter [facility] for referral (narrative)* Consultation (Routine) - New Request Specialty Diagnoses / Procedures Referred By Aliyah olea Referred To Contact Neurology Diagnoses Seizure disorder Meningioma Emir Orozco MD [address] [place] [address] Referral ID Status Reason Start Date Expiration Date V isits Requested Visits Authorized [id number] New Request 03/31/2024 04/25/2025 1 1 [facility] Summary Purpose Family History No Family History Records FoundNo Family History Records FoundNo Family History Records FoundNo Family History Records FoundNo Family History Records FoundNo Family History Records FoundNo Family History Records FoundNo Family History Records Found Advance Directives No Advanced Directives Records FoundDocuments on File Type Date Recorded 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 Advance Directives and Livin g Will 04/17/2020 4:27 PM Latest Code Status on File Code Status Date Activated Date Inactivated Comments Full Code - Unverified 04/17/2020 9:20 PM 04/18/2020 7:2 7 PM Documents on File Type Date Recorded 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 Advance Directives and Livin g Will 05/29/2020 4:27 PM Latest Code Status on File Code Status Date Activated Date Inactivated Comments Full Code - Unverified 06/06/2022 9:33 PM 06/08/2022 6 :48 PM Code Status History Code Status Date Activated Date Inactivated Comments Full Code - Unverified 04/17/2020 9:20 PM 04/18/2020 7:2 7 PM Latest Code Status on File Code Status Date Activated Date Inactivated Comments Full Code - Unverified 06/06/2022 9:33 PM 06/08/2022 6 :48 PM Code Status History Code Status Date Activated Date Inactivated Comments Full Code - Unverified 04/17/2020 9:20 PM 04/18/2020 7:2 7 PM Latest Code Status on File Code Status Date Activated Date Inactivated Comments Full Code 11/21/2022 3:09 AM 11/22/2022 6:57 PM Code Status History Code Status Date Activated Date Inactivated Comments Full Code - Unverified 06/06/2022 9:33 PM 06/08/2022 6 :48 PM Full Code - Unverified 04/17/2020 9:20 PM 04/18/2020 7:2 7 PM Date Activated Date Inactivated Comments 11/21/2022 3:09 AM 11/22/2022 6:57 PM Date Activated Date Inactivated Comments 06/06/2022 9:33 PM 06/08/2022 6:48 PM Date Activated Date Inactivated Comments 04/17/2020 9:20 PM 04/18/2020 7:27 PM Hospital Course * Mariel Waldrop MD - 04/18/2020 4:20 PM EST HOSPITALIST DISCHARGE SUMMARY Patient: Hilaria Lyons Account: [id number] Admitted: 04/17/2020 Discharge Date/Time: 04/18/2020 Clinical Summary FINAL DIAGNOSIS: Active Problems: Hypertensive urgency REASON FOR HOSPITALIZATION AND ADMITTING DIAGNOSIS: Tachycardia Hypokalemia [E87.6] Tachycardia [R00.0] Hypertension, unspecified type [I10] Hypertensive urgency [I16.0] HOSPITAL COURSE: Hilaria Lyons is a 70 y.o. female with past medical history of hypertension diabetes mellitus hyperlipidemia appears to be noncompliant with taking medications a while ago presents with his primary care physician blood pressure elevated and tachycardia was referred to the emergency for evaluation,upon workup provider sent to ED after results of EKG concern of of Afib with RVR -Hypertensive urgency with sinus tachycardia -Hyperglycemia -Hypokalemia Patient received his Cardizem bolus, and 1 dose of Coreg heart rate slowed down appeared to be in sinus tachycardia without evidence of atrial fibrillation, given potassium replacement, will check magnesium level and place patient telemetry admit the patient and start metoprolol 25 mg twice daily and Norvasc 10 mg daily further adjust blood pressure meds and beta-blockers accordingly, will check TSH level repeat EKG in the morning and echocardiogram, insulin sliding scale and check A1c level. Echo showed 1. Moderate left ventricular concentric hypertrophy. 2. Left ventricular systolic function is normal with an ejection fraction by Biplane Method of Discs of 56 %. 3. The left ventricular diastolic function is grade I diastolic dysfunction, consistent with low or normal atrial pressures. 4. Normal RV size and function. 5. No hemodynamically significant valvular disease. Will dc home Started ASA and eliquis Continue coreg- lisinopril Cont metformin and glimepride CONDITION AT DISCHARGE: Stable Physical Examination: Blood pressure 149/74, pulse 94, temperature 98.4 F (36.9 C), temperature source Oral, resp. rate 16, height 5' 1, weight 81.6 kg (180 lb), SpO2 95 %. General appearance: alert, cooperative, in no acute distress. Head/Neck: Head- normocephalic. Neck- supple, non-tender, without lymphadenopathy Eyes: No Scleral icterus or pallor; EOMI ENT: Trachea midline. Cardiovascular: regular rate and rhythm; normal S1, S2; no murmurs, rubs, clicks or gallops; No/+ peripheral edema. Respiratory: lungs clear to auscultation; without wheezes, rales or rhonchi. Abdomen: soft, non tender, non-distended; positive bowel sounds. Neurological: alert, oriented, normal speech; no focal findings or movement disorder noted. Musculoskeletal: no significant deformity noted. Skin: normal coloration, texture and turgor; no lesions or eruptions. Procedures: No orders of the defined types were placed in this encounter. Consults: Procedures Hospitalize Patient To : Other Tests: Procedures Echocardiogram complete LAST LABS: Results from last 7 days Lab Units 04/18/20 0432 SODIUM mmol/L 140 POTASSIUM mmol/L 3.6 CHLORIDE mmol/L 108 BUN mg/dL 12 CREATININE mg/dL 0.46* GLUCOSE mg/dL 270* CALCIUM mg/dL 8.1* Invalid input(s): LABALBU Results from last 7 days Lab Units 04/17/20 1545 INR 1.0 Results from last 7 days Lab Units 04/18/20 0432 WBC K/mcL 8.98 HGB g/dL 14.6 HCT % 43.3 PLT K/mcL 148* Results from last 7 days Lab Units 04/18/20 0432 TSH mcIU/mL 0.99 Allergies: [place]idge, Poison rhonda extract, and Penicillins Discharge Diet: Diet Special; Cardiac, Diabetic; Carbohydrate Consistent 60g/meal ([id number] kCal equivalent) Disposition: Discharge Medications Medication List START taking these medications amLODIPine 10 MG tablet Commonly known as: NORVASC Take 1 (one) tablet (10 mg total) by mouth daily . apixaban 5 mg Tab Commonly known as: ELIQUIS Take 1 (one) tablet (5 mg total) by mouth 2 (two) times a day . carvediloL 12.5 MG tablet Commonly known as: COREG Take 1 (one) tablet (12.5 mg total) by mouth 2 (two) times a day . glimepiride 4 MG tablet Commonly known as: AMARYL Take 1 (one) tablet (4 mg total) by mouth 2 (two) times a day . lisinopriL 40 MG tablet Commonly known as: PRINIVIL,ZESTRIL Take 1 (one) tablet (40 mg total) by mouth daily . metFORMIN 1000 MG tablet Commonly known as: GLUCOPHAGE Take 1 (one) tablet (1,000 mg total) by mouth 2 (two) times a day with meals . Where to Get Your Medications These medications were sent to [facility] [address] [place] [address] [address] [facility] [address] [facility] [id number] amLODIPine 10 MG tablet apixaban 5 mg Tab carvediloL 12.5 MG tablet glimepiride 4 MG tablet lisinopriL 40 MG tablet metFORMIN 1000 MG tablet Physician(s) Family: Jaime Shine MD, , Address: [address] [place] [address] / [facility] [phone] Follow Up: your doctor Call in 1 day Recheck of today's visit [facility] Emergency Department [address] [facility] [phone] Go to If symptoms worsen, As needed Jaime Shine MD [address] [place] [phone] Follow up Patient instructions, including activity, were given to the patient/family at discharge. Please seethe After Visit Summary in the medical record for details. Time spent on discharge: > 30 minutes Completed by: Mariel Waldrop on 04/18/20, 4:20 PM documented in this encounter Discharge Instructions * Instructions* Lucian Fernandez MD - 04/17/2020 Please check your pulse every couple hours and if your heart rate is above 110, please return to the ER or seek medical attention [facility] otherwise follow-up with your doctor as discussed. Please continue take your Coreg as prescribed. * Attachments The following attachments cannot be sent through Care Everywhere. * Hypokalemia (Mongolian) * Cardiac Arrhythmia (Mongolian) documented in this encounter History of Present Illness * Nitin Orosco RN - 04/18/2020 4:38 PM EST DISCHARGE PLAN PROGRESS NOTE Date: 04/18/2020 Time: 4:38 PM Patient Name: Hilaria Lyons Date of : 1950 Sex: Female PC to [place] to check on coverage for Eliquis. Per pharmacy patient does not have prescription coverage and cost is $564.00. I spoke to patient and she does not have coverage, Coupon's for 30 day free trial and $10.00 copay given and explained to patient. PC [place] and informed them that patient has coupons and will be in to get Eliquis. [facility] Disposition Regulatory Documentation: Condition code 44 Regulatory Documentation Status: Signed Signed: Self Anticipated Discharge Plan Anticipated HME: None Anticipated Home Care Needs: None Anticipated Facility Type: Home care * Elham Lucero LSW - 04/18/2020 4:00 PM EST Juan Antonio Orosco RN looking into cost of Elloquis at the request of Dr Waldrop. * Mariel Waldrop MD - 04/18/2020 9:56 AM EST Hospital Medicine Inpatient Follow-up 04/18/2020 Mariel Waldrop MD [facility] Patient: Hilaria Lyons Date of : 1950 (70 y.o.) PCP: Jaime Shine MD ASSESSMENT/PLAN: Hilaria Lyons 70 y.o. female Active Problems: Hypertensive urgency new onset afib/ flutter Type II DM HLD PLAN: In NSR this am No complaints Will need AC, josefina score of 3 Echo pending On lopressor 25 bid Keep k>4 and mag>2 Chadvasc score Sex Female (1 point) Male (0 points) Age ?64 years old (0 points) 65 to 74 years old (1 point) ?75 years old (2 points) Comorbidities [] Heart failure (0 point) [x] Hypertension (1 point) [x] Diabetes mellitus (1 point) [] History of stroke, TIA, or thromboembolism (2 points) [] Vascular disease (history of [place], PAD, or aortic atherosclerosis) (1 point) SUBJECTIVE: Palpitations resolved, no chest pain All other systems reviewed and negative other than noted above. OBJECTIVE: Physical Examination: BP (!) 161/92 (BP Location: Right arm, Patient Position: Lying) Pulse 96 Temp 98.8 F (37.1 C) (Oral) Resp 14 Ht 5' 1 Wt 81.6 kg (180 lb) SpO2 97% BMI 34.01 kg/m General Appearance: Alert, well appearing, and in no acute distress. HEENT: Head - Normocephalic, atraumatic. Eyes - AFSANEH bilaterally and EOMI. Ears - normal external appearance, hearing intact. Nose - normal, no erythema. Throat - mucous membranes moist, pharynx without lesions. Neck: Supple, trachea midline. Cardiovascular: S1, S2 normal. No murmurs, rubs, clicks or gallops appreciated. No pedal edema. Respiratory: Lungs clear to auscultation, no wheezes, rales or rhonchi heard. Abdomen: Soft, non-tender, normal bowel sounds, non-distended, no masses or organomegaly appreciated. Neurological: Grossly normal motor and sensory exam. No focal deficits. Musculoskeletal: No joint tenderness, deformity or swelling. Skin: Normal coloration and turgor. No rashes. Psych: Alert, oriented x 3. Normal mood and affect. CURRENT MEDICATIONS: amLODIPine 10 mg Oral Daily heparin (porcine) 5,000 Units Subcutaneous Q8H DAMARIS lispro insulin 0-15 Units Subcutaneous at bedtime insulin lispro 0-30 Units Subcutaneous TID AC magnesium sulfate IVPB/IV replacement 2 g Intravenous Once metoprolol tartrate 25 mg Oral BID potassium chloride SA 40 mEq Oral Once Results/Medications Reviewed 04/18/20 9:56 AM: Results from last 7 days Lab Units 04/18/20 0432 04/17/20 1545 SODIUM mmol/L 140 137 POTASSIUM mmol/L 3.6 3.0* CHLORIDE mmol/L 108 102 BUN mg/dL 12 16 CREATININE mg/dL 0.46* 0.65 GLUCOSE mg/dL 270* 247* CALCIUM mg/dL 8.1* -- Results from last 7 days Lab Units 04/18/20 0432 04/17/20 1545 WBC K/mcL 8.98 13.97* HGB g/dL 14.6 17.3* HCT % 43.3 51.3* PLT K/mcL 148* 175 Results from last 7 days Lab Units 04/18/20 0100 04/17/20 2220 04/17/20 1932 TROPONIN I ng/L 29 33 25 Results from last 7 days Lab Units 04/17/20 1545 INR 1.0 Invalid input(s): LABALBU CULTURES: Reviewed 9:56 AM IMAGING: Reviewed 9:56 AM documented in this encounter* Allan Coats MD - 05/29/2020 2:40 PM EST Cardiology Office Visit [facility] [address] [facility] [address] [facility] [phone] Physicians: Jaime Shine MD (Family); Enedina James* (Referring) Assessment & Plan: Problem List Items Addressed This Visit Cardiology Problems Hypertension Uncontrolled. She is currently on maximum doses of beta-blockade, amlodipine, NGOZI inhibition and diuretic therapy. We will go ahead and add hydralazine 25 mg 3 times daily to her regimen. Additionally, I would combine NGOZI inhibition/diuretic doses to once daily for a better pharmacological effect. Follow-up in 3 months. Relevant Medications hydrALAZINE (APRESOLINE) 25 MG tablet Other Diabetes mellitus (HCC) Recommend good glycemic control. She is on NGOZI inhibition therapy but does not appear to be on statin therapy. Given her likely significantly elevated 10-year ASCVD event risk (not calculated today without HDL on record), I would recommend statin therapy. I would recommend a greater than 50% reduction in her LDL cholesterol from baseline value (goal LDL cholesterol less than 55 mg/dL). I would also recommend LD aspirin for primary prevention as well. Relevant Medications insulin glargine (LANTUS) 100 unit/mL injection Obesity Weight loss recommended. Tachycardia - Primary Sinus tachycardia. Patient with significant anxiety and an EKG obtained at PCPs office appears to be interpreted as atrial fibrillation with RVR, when in fact it is sinus tachycardia with PAC. Subsequent EKGs obtained in the emergency department also demonstrated sinus tachycardia. She was started on NOAC for presumed atrial fibrillation. Echocardiography demonstrated hypertensive heart disease, but no abnormality in atrial size. Without documented atrial fibrillation, we will go ahead and discontinue NOAC at this time. She is certainly at increased risk of atrial fibrillation given her hypertension and hypertensive heart disease. Follow Up Ordered: Return in about 3 months (around 08/27/2020). Hilaria Lyons is a 70 y.o. female seen in the office today for Consult (Denies cardiovascular symptoms or complaints.) HPI: Hilaria Lyons is a 70 y.o. female with a past medical history significant for hypertension, diabetes mellitus, obesity, and DJD/OA who presents for cardiovascular evaluation. She states that she has generally done well from an overall CV standpoint since her hospital discharge (04/18/2020). She states that she was going to see a brand-new PCP and was extremely anxious and nervous. She was noted to have a very fast heart rate and an EKG obtained was interpreted as atrial flutter with RVR. She was sent to the emergency department where she received IV diltiazem and beta-blockade and admitted. She was started on apixaban and discharged with instructions to follow-up with cardiology. She denies a history of atrial fibrillation. She denies a history of coronary artery disease or myocardial infarction. Her potassium was noted to be low at 3.0, and it was replaced. She d enies any overt cardiovascular symptoms or complaints. She denies any chest pain or angina. She denies any palpitations or perceived dysrhythmia, lightheadedness, dizziness, near syncope or syncope. She denies any heart failure symptoms including orthopnea, PND, or LE edema. She states that she is tolerating anticoagulation without bleeding issues. She does report home blood pressures are consistently above 150 mmHg systolically. Histories: Past Medical History: Diagnosis Date Arthritis Diabetes mellitus (HCC) Hypertension Obesity Past Surgical History: Procedure Laterality Date CATARACT EXTRACTION, BILATERAL CHOLECYSTECTOMY EYE SURGERY Bilateral 2017 cataracts TUBAL LIGATION 1986 Allergies Allergen Reactions [place] Hives Poison Rhonda Extract Penicillins GI Intolerance Patient's Medications New Prescriptions HYDRALAZINE (APRESOLINE) 25 MG TABLET Take 1 (one) tablet (25 mg total) by mouth 3 (three) times a day . Previous Medications AMLODIPINE (NORVASC) 10 MG TABLET Take 1 (one) tablet (10 mg total) by mouth daily . CARVEDILOL (COREG) 25 MG TABLET Take 25 mg by mouth 2 (two) times a day . GLIMEPIRIDE (AMARYL) 4 MG TABLET Take 1 (one) tablet (4 mg total) by mouth 2 (two) times a day . INSULIN GLARGINE (LANTUS) 100 UNIT/ML INJECTION Inject 20 Units under the skin nightly . METFORMIN (GLUCOPHAGE) 1000 MG TABLET Take 1 (one) tablet (1,000 mg total) by mouth 2 (two) times aday with meals . MULTIVITAMIN (THERAGRAN) PER TABLET Take 1 tablet by mouth daily . Modified Medications Modified Medication Previous Medication LISINOPRIL-HYDROCHLOROTHIAZIDE (PRINZIDE,ZESTORETIC) 20-12.5 MG PER TABLET lisinopriL-hydrochlorothiazide (PRINZIDE,ZESTORETIC) 20-12.5 mg per tablet Take 2 (two) tablets by mouth daily . Take 1 tablet by mouth 2 (two) times a day . Discontinued Medications APIXABAN (ELIQUIS) 5 MG TAB Take 1 (one) tablet (5 mg total) by mouth 2 (two) times a day . CARVEDILOL (COREG) 12.5 MG TABLET Take 1 (one) tablet (12.5 mg total) by mouth 2 (two) times a day . LISINOPRIL (PRINIVIL,ZESTRIL) 40 MG TABLET Take 1 (one) tablet (40 mg total) by mouth daily . Family History Problem Relation Age of Onset Heart disease Mother Diabetes Mother Cancer Father Social History Socioeconomic History Marital status: Spouse name: Not on file Number of children: Not on file Years of education: Not on file Highest education level: Not on file Occupational History Not on file Social Needs Financial resource strain: Not on file Food insecurity Worry: Not on file Inability: Not on file Transportation needs Medical: Not on file Non-medical: Not on file Tobacco Use Smoking status: Never Smoker Smokeless tobacco: Never Used Substance and Sexual Activity Alcohol use: Never Frequency: Never Drug use: Never Sexual activity: Not Currently Lifestyle Physical activity Days per week: Not on file Minutes per session: Not on file Stress: Not on file Relationships Social connections Talks on phone: Not on file Gets together: Not on file Attends muslim service: Not on file Active member of club or organization: Not on file Attends meetings of clubs or organizations: Not on file Relationship status: Not on file Other Topics Concern Not on file Social History Narrative Not on file Review of Systems Constitution: Negative. Negative for diaphoresis, malaise/fatigue, weight gain and weight loss. HENT: Negative. Negative for hearing loss, nosebleeds and tinnitus. Eyes: Negative. Negative for blurred vision and visual disturbance. Cardiovascular: Positive for palpitations (with anxiety). Negative for chest pain, claudication, cyanosis, dyspnea on exertion, irregular heartbeat, leg swelling, near-syncope, orthopnea, paroxysmal nocturnal dyspnea and syncope. Respiratory: Negative. Negative for hemoptysis, shortness of breath and snoring. Endocrine: Negative. Negative for cold intolerance and heat intolerance. Hematologic/Lymphatic: Negative. Does not bruise/bleed easily. Skin: Negative. Negative for flushing, poor wound healing and rash. Musculoskeletal: Positive for arthritis and joint pain. Negative for back pain, muscle weakness andmyalgias. Gastrointestinal: Negative. Negative for abdominal pain, change in bowel habit, melena, nausea and vomiting. Genitourinary: Negative. Negative for hematuria. Neurological: Negative. Negative for loss of balance and numbness. Psychiatric/Behavioral: Negative for memory loss. The patient is nervous/anxious. Physical Examination: Vitals: Vitals: 05/29/20 1331 BP: 140/85 BP Location: Left arm Pulse: 99 SpO2: 96% Weight: 81.6 kg (180 lb) Height: 5' 1 Body mass index is 34.01 kg/m . Physical Exam Constitutional: She is oriented to person, place, and time. She appears well- developed and well-nourished. HENT: Head: Normocephalic and atraumatic. Mouth/Throat: Oropharynx is clear and moist. Wearing a facial mask. Eyes: Pupils are equal, round, and reactive to light. Conjunctivae, EOM and lids are normal. Neck: Normal range of motion. Neck supple. Normal carotid pulses, no hepatojugular reflux and no JVD present. Carotid bruit is not present. No thyroid mass and no thyromegaly present. Cardiovascular: Normal rate, regular rhythm, S1 normal, S2 normal, normal heart sounds and normal pulses. Exam reveals no gallop, no S3, no S4, no friction rub and no midsystolic click. No murmur heard. Pulmonary/Chest: Effort normal and breath sounds normal. She has no wheezes. She has no rales. Abdominal: Soft. Bowel sounds are normal. She exhibits no distension and no mass. There is no hepatosplenomegaly. There is no abdominal tenderness. There is no rebound and no guarding. Obese. Musculoskeletal: Normal range of motion. General: No tenderness or edema. Neurological: She is alert and oriented to person, place, and time. Gait normal. Skin: Skin is warm, dry and intact. No rash noted. Psychiatric: She has a normal mood and affect. Her behavior is normal. Nursing note and vitals reviewed. EKG ([facility])(04/17/2020 1302): sinus tachycardia, with PAC (computer algorithm interpreted: atrial flutter/tachycardia with RVR, NSSTW). EKG (04/17/2020 1534): sinus tachycardia with PAC, septal infarct age undetermined. EKG (04/17/2020 13361): sinus tachycardia. Lipids (04/17/2020): Total cholesterol 198, triglycerides 118, HDL-, LDL 109 mg/dL. EKG (04/18/2020 0552): NSR. Echocardiography (04/18/2020): Normal LV cavity size and systolic function; EF 56%. Moderate concentric LVH. Grade 1 diastolic dysfunction. Trace Derrick Allan Coats MD, [facility] documented in this encounter Assessments Diagnosis Tachycardia- Primary Unspecified tachycardia Hypokalemia Hypopotassemia Hypertension, unspecified type Hypertensive urgency Diagnosis Tachycardia- Primary Unspecified tachycardia Essential hypertension Unspecified essential hypertension Class 1 obesity due to excess calories with serious comorbidity and body mass index (BMI) of 34.0 to 34.9 in adult Type 2 diabetes mellitus without complication, with long-term current use of insulin (HCC) Instructions * Patient Instructions* Norma Nicolas RN - 05/29/2020 1:24 PM EST How to contact your Care Team: Provider: Dr. Allan Coats Nurse: Oswaldo MCCARTHY Fax: In case of an emergency please call 911. REFILLS: When in need for refills please call your care team or the office at [phone]. Please include medication name, pharmacy name, and specify 30-day or 90-day supply. Please check with your pharmacy within 24 hours of request for your refill. You must follow up as directed to continue current refills. Thank you! documented in this encounter Reason for Referral Specialty Diagnoses / Procedures Referred By Contshanti t Referred To Contact Radiology Diagnoses Meningioma (HCC) Partial seizure disorder (HCC) Procedures MR Brain With And Without Contrast Fabian Mccabe MD [facility] Kristofer Rudolph [place] [id number] Referral ID Status Reason Start Date Expiration Date V isits Requested Visits Authorized [id number] New Request 09/06/2022 09/06/2023 1 1 Additional Source Comments INFORMATION SOURCE (unrecogn ized section and content) DATE CREATED AUTHOR 01/05/2018 [facility] DATE CREATED AUTHOR AUTHOR'S ORGANIZ ATION 06/08/2022 [facility] DATE CREATED AUTHOR AUTHOR'S ORGANIZ ATION 02/18/2024 [facility] DATE CREATED AUTHOR AUTHOR'S ORGANIZ ATION 04/03/2024 [facility] DATE CREATED AUTHOR AUTHOR'S ORGANIZ ATION 05/17/2024 [facility] DATE CREATED AUTHOR AUTHOR'S ORGANIZ ATION 04/18/2025 [facility] DATE CREATED AUTHOR AUTHOR'S ORGANIZ ATION 04/25/2025 [facility] DATE CREATED AUTHOR AUTHOR'S ORGANIZ ATION 04/26/2025 [facility] Reason for Visit (unrecogniz ed section and content) Reason Comments Tachycardia Status Reason Specialty Diagnoses / Procedures Referre d By Contact Referred To Contact Diagnoses Hypokalemia Tachycardia Hypertension, unspecified type Hypertensive urgency Reason Comments Consult Denies cardiovascula r symptoms or complaints. Status Reason Specialty Diagnoses / Procedures Referred By Contact Referred To Contact Closed Specialty Services Required/Patient 's Best Interest Cardiology Diagnoses Atrial flutter with rapid ventricular response (HCC) Enedina James, MAGNETIC DOCTOR [address] [place] [address] [facility] [address] [facility] [place] [address] Reason Comments Stroke Alert Specialty Diagnoses / Procedures Referred By Contac t Referred To Contact Diagnoses Hyperglycemia Acute UTI Acute ischemic stroke (HCC) Acute CVA (cerebrovascular accident) (HCC) Referral ID Status Reason Start Date Expiration Date Visits Re quested Visits Authorized [id number] 1 1 Reason Comments Diabetes Mellitus Gap Closure (Health Maintenance) Foot Ex am Never doneDiabetic Eye Exam Never doneUrine Microalbumin Never done Reason Onset Date Comments Medication Refill 02/06/2023 Reason Comments Diabetes Mellitus Gap Closure (Health Maintenance) Diabeti c Eye Exam Never done Reason Onset Date Comments Medication Refill 02/11/2024 Reason Comments Diabetes Mellitus Gap Closure (Health Maintenance) Diabeti c Eye Exam Never done Reason Comments Establish Care Pt is here today to establish care.Pt has h/o htn. Has been out of medications for 1.5 months. Pt does not monitor at home. Pt is diabetic, sees [place] [facility] for this, last A1C 02/11 6.2%Pt has not had recent mammo, states in the past they found a small mass but it was benign.Pt has never had cscope Reason Comments Well controlled type 2 diabe eugene mellitus (HCC) Gap Closure (Health Maintenance) Diabeti c Eye Exam Never doneDiabetic Foot Exam due on 04/09/2024 Mirela Sierra MD - 04/17/2020 9:21 PM EST H&P Notes (unrecognized sect ion and content) [facility] Medicine Inpatient H&P 04/17/2020 Mirela Sierra MD [facility] Patient: Hilaria Lyons Date of : 1950 (70 y.o.) PCP: Physician No Assessment Hilaria Lyons is a 70 y.o. female with past medical history of hypertension diabetes mellitus hyperlipidemia appears to be noncompliant with taking medications a while ago presents with his primary care physician blood pressure elevated and tachycardia was referred to the emergency for evaluation, upon workup provider sent to ED after results of EKG concern of of Afib with RVR -Hypertensive urgency with sinus tachycardia -Hyperglycemia -Hypokalemia Patient received his Cardizem bolus, and 1 dose of Coreg heart rate slowed down appeared to be in sinus tachycardia without evidence of atrial fibrillation, given potassium replacement, will check magnesium level and place patient telemetry admit the patient and start metoprolol 25 mg twice daily and Norvasc 10 mg daily further adjust blood pressure meds and beta-blockers accordingly, will check TSH level repeat EKG in the morning and echocardiogram, insulin sliding scale and check A1c level. SUBJECTIVE: Chief Complaint: Palpitation and weakness History of Presenting Illness: Hilaria Lyons is a 70 y.o. female with past medical history of hypertension diabetes mellitus hyperlipidemia appears to be noncompliant with taking medications a while ago presents with his primary care physician blood pressure elevated and tachycardia was referred to the emergency for evaluation, Patient has been off her medications for a period of time. She took her first dose of Coreg this morning which she has not taken for over a month. She has known hypertension and diabetes. She saw her doctor today for the first time to reestablish care and they found her to be tachycardic. They stated she was in A. fib with RVR. I did not see an EKG that was sent with her. Upon presentation here her heart rate was 150. Review of Systems: 10 systems reviewed and negative other than noted in HPI History: No past medical history on file. Past Surgical History: Procedure Laterality Date CATARACT EXTRACTION, BILATERAL CHOLECYSTECTOMY EYE SURGERY TUBAL LIGATION 1986 No family history on file. Social History Tobacco Use Smoking Status Never Smoker Smokeless Tobacco Never Used Social History Substance and Sexual Activity Alcohol Use Never Frequency: Never Family and Social History reviewed and non-pertinent to this visit Allergies: Poison rhonda extract Home Medications: No current outpatient medications on file as of 04/17/2020. OBJECTIVE: Physical Examination: BP (!) 180/98 (BP Location: Left arm, Patient Position: Sitting) Pulse 95 Temp 98.5 F (36.9 C) (Oral) Resp 18 Ht 5' 1 Wt 81.6 kg (180 lb) SpO2 97% BMI 34.01 kg/m General Appearance: Alert, well appearing, and in no acute distress. HEENT: Head - Normocephalic, atraumatic. Eyes - AFSANEH bilaterally and EOMI. Ears - normal external appearance, hearing intact. Nose - normal, no erythema. Throat - mucous membranes moist, pharynx without lesions. Neck: Supple, trachea midline. Cardiovascular: S1, S2 normal. No murmurs, rubs, clicks or gallops appreciated. No pedal edema. Respiratory: Lungs clear to auscultation, no wheezes, rales or rhonchi heard. Abdomen: Soft, non-tender, normal bowel sounds, non-distended, no masses or organomegaly appreciated. Neurological: Grossly normal motor and sensory exam. No focal deficits. Musculoskeletal: No joint tenderness, deformity or swelling. Skin: Normal coloration and turgor. No rashes. Psych: Alert, oriented x 3. Normal mood and affect. Laboratory and Additional Data Reviewed: Results/Medications Reviewed 04/17/20 9:21 PM: Results from last 7 days Lab Units 04/17/20 1545 SODIUM mmol/L 137 POTASSIUM mmol/L 3.0* CHLORIDE mmol/L 102 BUN mg/dL 16 CREATININE mg/dL 0.65 GLUCOSE mg/dL 247* Results from last 7 days Lab Units 04/17/20 1545 WBC K/mcL 13.97* HGB g/dL 17.3* HCT % 51.3* PLT K/mcL 175 Results from last 7 days Lab Units 04/17/20 1932 04/17/20 1545 TROPONIN I ng/L 25 <15 Results from last 7 days Lab Units 04/17/20 1545 INR 1.0 Invalid input(s): LABALBU CULTURES: Reviewed 9:21 PM IMAGING: Reviewed 9:21 PM documented in this encounter Sharonda Whipple RN - 04/18/2020 12:57 AM Sharonda Calderon RN - 04/18/2020 12:48 AM Sharonda Calderon RN - 04/17/2020 10:38 PM Leydi Cristobal RN - 04/17/2020 7:25 PM EST ED Notes (unrecognized secti on and content) REPORT CALLED TO FABIO BARRY ON CORONARY STEPDOWN. PT AMBULATORY TO RESTROOM WITHOUT DIFFICULTY. UPDATE GIVEN TO PT'S DAUGHTER AMINA VIA PHONE. QUESTIONED REPEAT TROP PT NOW LISTED FOR D/C, DR FERNANDEZ BACK CARTSIDE TALKING WITH PT PT DENIES CP, PT STATES FEELING BETTER Dr Jaime mayers @ [phone] Fernandez request. [facility] ED Physician Note: NAME: Hilaria Lyons 70 y.o. CSN: [id number] PCP: Physician No ED Course / Medical Decision Making: Will be admitted for further care. Patient has been off her medications for a period of time. She took her first dose of Coreg this morning which she has not taken for over a month. She has known hypertension and diabetes. She saw her doctor today for the first time to reestablish care and they found her to be tachycardic. They stated she was in A. fib with RVR. I did not see an EKG that was sent with her. Upon presentation here her heart rate was 150. My initial impression was this is either a flutter 2-1 or sinus tachycardia. There appeared be P waves which would argue against SVT. Patient was given 20 mg of Cardizem and she slowed her heart rate down to the low 100s. Repeat EKG shows sinus tachycardia without ischemic changes. Patient remained tachycardic here in the ER. Blood was checked and she had a mild hypokalemia that was replaced here. Repeat troponin shows her enzymes elevating. While I do not think she is having an obvious acute coronary event, with her tachycardia and her hypertension I do think she is at risk in the near future and I would like to bring her in for blood pressure and heart rate control and further management. I spoke with the hospitalist for admission. Will admit for further care discussed above. He would like her admitted to stepdown The patient has been informed that they may have pre-hypertension or hypertension based on a blood pressure reading in the Emergency Department. I recommend that the patient call the primary care provider listed on their discharge instructions or a physician of their choice as soon as possible to arrange follow-up in the next 4 weeks for further evaluation of possible pre-hypertension or hypertension. . Clinical Impression: 1. Tachycardia 2. Hypokalemia 3. Hypertension, unspecified type Disposition: [facility] History: Chief Complaint: Tachycardia HPI: The history was obtained from the patient. She is a 70 y.o. female who presents with a chief complaint of Tachycardia. HPI patient presents with concerns of tachycardia. Patient denies known heart history. Denies previous heart rhythm problems. States that she was seeing a doctor for a new appointment and they hooked her up to the EKG machine and her heart rate was fast. They sent her out for further care. She denies any symptoms such as chest pain, shortness of breath, dizziness, palpitations, etc. No treatment prior to arrival. PMHx: No past medical history on file. PMSx: Past Surgical History: Procedure Laterality Date CATARACT EXTRACTION, BILATERAL CHOLECYSTECTOMY EYE SURGERY TUBAL LIGATION 1986 FAM. Hx: No family history on file. SOC. Hx: Social History Socioeconomic History Marital status: Spouse name: Not on file Number of children: Not on file Years of education: Not on file Highest education level: Not on file Occupational History Not on file Social Needs Financial resource strain: Not on file Food insecurity Worry: Not on file Inability: Not on file Transportation needs Medical: Not on file Non-medical: Not on file Tobacco Use Smoking status: Never Smoker Smokeless tobacco: Never Used Substance and Sexual Activity Alcohol use: Never Frequency: Never Drug use: Never Sexual activity: Not on file Lifestyle Physical activity Days per week: Not on file Minutes per session: Not on file Stress: Not on file Relationships Social connections Talks on phone: Not on file Gets together: Not on file Attends muslim service: Not on file Active member of club or organization: Not on file Attends meetings of clubs or organizations: Not on file Relationship status: Not on file Other Topics Concern Not on file Social History Narrative Not on file MEDs: No current outpatient medications on file prior to encounter. ALL: Allergies Allergen Reactions Poison Rhonda Extract ROS: Review of Systems Constitutional: Negative for chills and fever. HENT: Negative for congestion and rhinorrhea. Eyes: Negative for pain and redness. Respiratory: Negative for cough and shortness of breath. Cardiovascular: Negative for chest pain and palpitations. Gastrointestinal: Negative for abdominal pain, constipation, diarrhea, nausea and vomiting. Genitourinary: Negative for difficulty urinating. Musculoskeletal: Negative for back pain, neck pain and neck stiffness. Skin: Negative for rash. Neurological: Negative for dizziness, syncope, weakness, light-headedness and headaches. All other systems reviewed and are negative. Positives and pertinent negatives as per HPI. All other systems were reviewed and are negative. Physical Exam: Patient Vitals for the past 24 hrs: BP Temp Temp src Pulse Resp SpO2 Height Weight 04/17/20 202 (!) 180/98 (!) 112 16 97 % 04/17/20 2000 (!) 108 97 % 04/17/20 1929 (!) 172/92 (!) 117 16 97 % 04/17/20 1845 (!) 109 97 % 04/17/20 1815 (!) 103 96 % 04/17/20 1800 (!) 102 97 % 04/17/20 1745 (!) 105 97 % 04/17/20 1700 (!) 105 96 % 04/17/20 1628 (!) 178/95 (!) 107 18 96 % 04/17/20 1619 (!) 189/125 04/17/20 1555 (!) 182/105 04/17/20 1527 (!) 175/124 04/17/20 1520 98.5 F (36.9 C) Oral (!) 153 18 97 % 5' 1 81.6 kg (180 lb) Physical Exam Vitals signs and nursing note reviewed. Constitutional: General: She is not in acute distress. Appearance: Normal appearance. She is well-developed. She is not ill-appearing or diaphoretic. HENT: Head: Normocephalic and atraumatic. Eyes: Conjunctiva/sclera: Conjunctivae normal. Right eye: Right conjunctiva is not injected. Left eye: Left conjunctiva is not injected. Neck: Musculoskeletal: Normal range of motion and neck supple. Cardiovascular: Rate and Rhythm: Regular rhythm. Tachycardia present. Pulses: Dorsalis pedis pulses are 2+ on the right side and 2+ on the left side. Heart sounds: Normal heart sounds. No murmur. No friction rub. No gallop. Comments: Feet are pink and warm with brisk cap refill Pulmonary: Effort: Pulmonary effort is normal. No respiratory distress. Breath sounds: Normal breath sounds. No decreased breath sounds, wheezing, rhonchi or rales. Abdominal: Palpations: Abdomen is not rigid. There is no pulsatile mass. Tenderness: There is no abdominal tenderness. There is no guarding or rebound. Negative signs include Marie's sign. Musculoskeletal: Comments: No calf pain, redness, asymmetry or abnormal leg swelling. No palpable cords. Negative Homans sign. No signs of DVT. Skin: General: Skin is warm. Coloration: Skin is not pale. Neurological: Mental Status: She is alert and oriented to person, place, and time. Sensory: No sensory deficit. Laboratory & Radiological Imaging (if done): Labs Reviewed CHEM 7 - Abnormal; Notable for the following components: Result Value Potassium 3.0 (*) Glucose 247 (*) BUN/Creatinine Ratio 24.6 (*) All other components within normal limits Narrative: The eGFR should be used for monitoring renal function only and not for medication dosing. TROPONIN - Abnormal; Notable for the following components: Delta Difference Troponin I >10 (*) All other components within normal limits CBC WITH AUTO DIFFERENTIAL - Abnormal; Notable for the following components: WBC 13.97 (*) RBC 6.01 (*) Hemoglobin 17.3 (*) Hematocrit 51.3 (*) Neutrophils Abs 11.50 (*) All other components within normal limits PT/INR - Normal Narrative: During the induction phase of oral anticoagulation, the INR may not reflect the anticoagulation status of the patient. Therapeutic ranges for INR's are: Most clinical situations: INR 2.0-3.0 Mechanical Prosthetic Valve: INR 2.5-3.5 Critical: INR >5.0 TSH WITH REFLEX FREE T4 - Normal MAGNESIUM LEVEL - Normal D-DIMER, QUANTITATIVE - Normal Narrative: A D-dimer concentration of <0.5 micrograms per milliliter FEU is considered a low probability for pulmonary embolus (PE) and deep venous thrombosis (DVT). Results of this test should always be interpreted in conjunction with the patient's medical history,clinical presentation, and other findings. Clinical diagnosis should not be based on the results of the D-dimer alone. CBC AND DIFFERENTIAL Narrative: The following orders were created for panel order CBC w/ Diff. Procedure Abnormality Status --------- ------ CBC Auto Differential[[id number]] Abnormal Final result Please view results for these tests on the individual orders. TROPONIN XR Chest 1 View Final Result No acute cardiopulmonary abnormalities. Workstation ID: [id number] Procedures: Procedures Lucian Fernandez MD ED Physician [facility] Emergency Department (Please note that portions of this note have been completed with a voice recognition software. Efforts were made to correct any errors, but occasionally words are mis-transcribed.) Lucian Fernandez MD 04/17/202039 DR. JIM NIEVES. 1 L BOLUS INITIATED PER DR. FERNANDEZ. EKG COMPLETED BY FABIO PEDRO DURING PT'S TRIAGE. EKG GIVEN TO PROVIDER. To PCP today, upon workup provider sent to ED after results of EKG of Afib with RVR, Dr. Shine is PCP but today she saw ENGINEERING TECHNOLOGY INSTRUCTOR, HR 130 documented in this encounter Plan of Care - Letty Nuñez RN - 04/18/2020 4:47 PM ESTHospital Course - Mariel Waldrop MD - 04/18/2020 4:15 PM ESTED Procedure Note - Lucian Fernandez MD - 04/17/2020 9:11 PM EST Miscellaneous Notes (unrecog nized section and content) Problem: Actual or potential alteration in health Goal: Absence of healthcare acquired conditions Outcome: Partially Met Goal: Knowledge of Interdisciplinary Plan of Care Outcome: Partially Met Goal: Knowledge of Enviroment Outcome: Partially Met Lyons is a 70 y.o. female with past medical history of hypertension diabetes mellitus hyperlipidemia appears to be noncompliant with taking medications a while ago presents with his primary care physician blood pressure elevated and tachycardia was referred to the emergency for evaluation, upon workup provider sent to ED after results of EKG concern of of Afib with RVR -Hypertensive urgency with sinus tachycardia -Hyperglycemia -Hypokalemia Patient received his Cardizem bolus, and 1 dose of Coreg heart rate slowed down appeared to be in sinus tachycardia without evidence of atrial fibrillation, given potassium replacement, will check magnesium level and place patient telemetry admit the patient and start metoprolol 25 mg twice daily and Norvasc 10 mg daily further adjust blood pressure meds and beta-blockers accordingly, will check TSH level repeat EKG in the morning and echocardiogram, insulin sliding scale and check A1c level. Echo showed 1. Moderate left ventricular concentric hypertrophy. 2. Left ventricular systolic function is normal with an ejection fraction by Biplane Method of Discs of 56 %. 3. The left ventricular diastolic function is grade I diastolic dysfunction, consistent with low or normal atrial pressures. 4. Normal RV size and function. 5. No hemodynamically significant valvular disease. Will dc home Started ASA and eliquis Continue coreg- lisinopril Cont metformin and glimepride Associated Order(s): Repeat EKG Repeat EKG Date/Time: 04/17/2020 9:11 PM Performed by: Lucian Fernandez MD Authorized by: Lucian Fernandez MD Interpreted by ED attending physician Comparison: not compared with previous ECG Rhythm: sinus rhythm BPM: 116 Conduction: conduction normal normal VA interval normal QT interval Clinical impression: non-specific ECG documented in this encounter Associated Problem(s): Diabetes mellitus (HCC) Recommend good glycemic control. She is on NGOZI inhibition therapy but does not appear to be on statin therapy. Given her likely significantly elevated 10-year ASCVD event risk (not calculated today without HDL on record), I would recommend statin therapy. I would recommend a greater than 50% reduction in her LDL cholesterol from baseline value (goal LDL cholesterol less than 55 mg/dL). I would also recommend LD aspirin for primary prevention as well. Associated Problem(s): Obesity Weight loss recommended. Associated Problem(s): Hypertension Uncontrolled. She is currently on maximum doses of beta-blockade, amlodipine, NGOZI inhibition and diuretic therapy. We will go ahead and add hydralazine 25 mg 3 times daily to her regimen. Additionally, I would combine NGOZI inhibition/diuretic doses to once daily for a better pharmacological effect. Follow-up in 3 months. Associated Problem(s): Tachycardia Sinus tachycardia. Patient with significant anxiety and an EKG obtained at PCPs office appears to be interpreted as atrial fibrillation with RVR, when in fact it is sinus tachycardia with PAC. Subsequent EKGs obtained in the emergency department also demonstrated sinus tachycardia. She was started on NOAC for presumed atrial fibrillation. Echocardiography demonstrated hypertensive heart disease, but no abnormality in atrial size. Without documented atrial fibrillation, we will go ahead and discontinue NOAC at this time. She is certainly at increased risk of atrial fibrillation given her hypertension and hypertensive heart disease. documented in this encounter Scheduled Active and Recently Administ ered Medications (unrecognized section and content) Medication Order 06/06/2022 06/07/2022 06/08/2022 amLODIPine (NORVASC) tablet 5 mg 5 mg, Oral, Daily, First dose on 06/07/22 at 1700 1650 (Given - Provider: Sherri Armijo, FABIO) 0954 (Given - Provider: Jacky Russo RN) aspirin chewable tablet 324 mg (COMPLETED) 324 mg, Oral, Once, On 06/06/22 at 1850, For 1 dose, Chew 4 tablets and swallow 1902 (Given - Provider: Chris Herrera, RN) aspirin EC tablet 81 mg (CANCELED) 81 mg, Oral, Daily, First dose on 06/07/22 at 0900, DO NOT CRUSH OR CHEW. 927 (Given - Provider: Sherri Armijo RN) aspirin tablet 325 mg 325 mg, Oral, Daily, First dose on Thu06/08/22 at 0900 0954 (Given - Provider: Jacky Russo, RN) atorvastatin (LIPITOR) tablet 40 mg 40 mg, Oral, Nightly, First dose on Thu06/06/22 at 2135 2135 (Canceled Entry - Provider: Piedad Coats RN - Comment: NPO pending swallow eval) 2099 (Given - Provider: Piedad Coats RN) carvediloL (COREG) tablet 6.25 mg 6.25 mg, Oral, 2 times daily, First dose on Thu06/07/22 at 0900, Give carvedilol with food to reduce risk of hypotension / dizziness. Separate from admin of NGOZI inhibitors by two hours. 927 (Given - Provider: Sherri Armijo RN)2099 (Given - Provider: Piedad Coats RN) 0954 (Given - Provider: Jacky Russo, FABIO) ceFAZolin (ANCEF) IVPB 1 g (premix) (CANCELED) 1,000 mg, Intravenous, at 100 mL/hr, Every 12 hours, First dose on Thu06/07/22 at 1700, Indication: UTI 183 (New Bag - Provider: Sherri Armijo RN)1900 (Rate/Dose Verify - Provider: Piedad Coats RN)190 (Stopped - Provider: Piedad Coats, RN) 0536 (New Bag - Provider: Piedad Coats, FABIO)0606 (Stopped - Provider: Piedad Coats, RN) cefTRIAXone (ROCEPHIN) 2000 mg in sodium chloride (NS) 0.9% 50 mL MBP (COMPLETED) 2,000 mg, Intravenous, at 100 mL/hr, Once, On Thu06/06/22 at 2010, For 1 dose, Indication: UTI 2050 (New Bag - Provider: Chris Herrera, RN)2145 (Stopped - Provider: Tania Benitez RN) cephALEXin (KEFLEX) capsule 500 mg 500 mg, Oral, Every 8 hours scheduled, First dose on 06/08/22 at 1400, For 3 doses, Indication: UTI 1319 (Given - Provider: Jacky Russo, FABIO) cloNIDine HCL (CATAPRES) tablet 0.1 mg 0.1 mg, Oral, 4 times daily, First dose on 06/08/22 at 1300 1319 (Given - Provider: Jacky Russo, FABIO)1620 (Given - Provider: Jacky Russo, FABIO) clopidogreL (PLAVIX) tablet 75 mg (CANCELED) 75 mg, Oral, Daily, First dose on 06/07/22 at 1200 1200 (Given - Provider: Sherri Armijo, FABIO) enoxaparin (LOVENOX) syringe 40 mg 40 mg, Subcutaneous, Daily, First dose on 06/07/22 at 1615, Administer in abdomen unless otherwise directed by prescriber. Notify physician if patient refuses., Indication: VTE Prophylaxis 1826 (Given - Provider: Sherri Armijo RN) 0954 (Given - Provider: Jacky Russo RN) glimepiride (AMARYL) tablet 4 mg 4 mg, Oral, 2 times daily, First dose on Thu06/06/22 at 2230 2230 (Canceled Entry - Provider: Piedad Coats RN - Comment: NPO pending swallow eval) 0928 (Given - Provider: Sherri Armijo, FABIO)2150 (Given - Provider: Piedad Coats RN) 0954 (Given - Provider: Jacky Russo, FABIO) insulin glargine (LANTUS) injection 16 Units (COMPLETED) 16 Units, Subcutaneous, Once, On 06/07/22 at 1330, For 1 dose, Do not hold basal insulin without notifying physician. If patient NPO and BG < 100 before procedure, administer half of the glargine insulin (Lantus) dose; if BG is >100 administer full dose. Do not mix with other insulins in a syringe. Do NOT hold basal insulin without notifying physician 1350 (Given - Provider: Sherri Armijo RN) insulin glargine (LANTUS) injection 24 Units 24 Units, Subcutaneous, Nightly, First dose on 06/07/22 at 2100, Do not hold basal insulin without notifying physician. If patient NPO and BG < 100 before procedure, administer half of the glargine insulin (Lantus) dose; if BG is >100 administer full dose. Do not mix with other insulins in a syringe. Do NOT hold basal insulin without notifying physician 2057 (Given - Provider: Piedad Coats, FABIO) insulin lispro (AdmeLOG,HumaLOG) injection 0-15 Units 0-15 Units, Subcutaneous, At bedtime, First dose on 06/07/22 at 2100, For Nightly Insulin Dose Coverage, use: CORRECTIVE (Only) for BG greater than 300, Nightly CORRECTIVE Dose Method: Follow Corrective SCALE, Corrective Scale to use for BG > 300: Conservative Scale, For Downtime Calculator, use: Insulin SC NIGHTtime 2100 (Not Given - Provider: Piedad Coats RN - Reason: Order parameters not met) insulin lispro (AdmeLOG,HumaLOG) injection 0-30 Units 0-30 Units, Subcutaneous, Every morning before breakfast, First dose on 06/08/22 at 0730, Dose should be given 10-15 minutes before a meal. If poor oral intake, nausea or blood glucose value < 80 before meal, give of the dose (rounded up to nearest unit) immediately after meal completed. If patient skipping meal, hold base prandial dose and continue to use corrective insulin as ordered. Once diet resumed, total base prandial + corrective doses may be given., Prandial Insulin Dosing Method: Specific Prandial Doses, Specific Prandial Dose (units of Insulin): 16, Corrective Insulin Regimen (select desired scale to cover BG result): Conservative Scale, For Downtime Calculator, use: Insulin SC MEALtime PREprandial 0730 (Given - Provider: Jacky Russo RN) insulin lispro (AdmeLOG,HumaLOG) injection 0-30 Units 0-30 Units, Subcutaneous, Daily before lunch, First dose on 06/07/22 at 1300, Dose should be given 10-15 minutes before a meal. If poor oral intake, nausea or blood glucose value < 80 before meal, give of the dose (rounded up to nearest unit) immediately after meal completed. If patient skipping meal, hold base prandial dose and continue to use corrective insulin as ordered. Once diet resumed, total base prandial + corrective doses may be given., Prandial Insulin Dosing Method: Specific Prandial Doses, Specific Prandial Dose (units of Insulin): 12, Corrective Insulin Regimen (select desired scale to cover BG result): Conservative Scale, For Downtime Calculator, use: Insulin SC MEALtime PREprandial 1350 (Given - Provider: Sherri Armijo RN) 1320 (Given - Provider: Jacky Russo, FABIO) insulin lispro (AdmeLOG,HumaLOG) injection 0-30 Units 0-30 Units, Subcutaneous, Before dinner, First dose on 06/07/22 at 1630, Dose should be given 10-15 minutes before a meal. If poor oral intake, nausea or blood glucose value < 80 before meal, give of the dose (rounded up to nearest unit) immediately after meal completed. If patient skipping meal, hold base prandial dose and continue to use corrective insulin as ordered. Once diet resumed, total base prandial + corrective doses may be given., Prandial Insulin Dosing Method: Specific Prandial Doses, Specific Prandial Dose (units of Insulin): 12, Corrective Insulin Regimen (select desired scale to cover BG result): Conservative Scale, For Downtime Calculator, use: Insulin SC MEALtime PREprandial 1829 (Given - Provider: Sherri Armijo RN) 1630 (Due) insulin regular (HumuLIN R, NovoLIN R) injection 8 Units (COMPLETED) 8 Units, Subcutaneous, Once, On Thu06/06/22 at 2009, For 1 dose, IF INSULIN IS BEING ORDERD FOR HYPERKALEMIA, PLEASE USE HYPERKALEMIA ORDER-SET TO PLACE ORDERS 2051 (Given - Provider: Chris Herrera RN) levETIRAcetam (KEPPRA) tablet 500 mg 500 mg, Oral, 2 times daily, First dose on 06/07/22 at 2100 2100 (Given - Provider: Piedad Coats RN) 0955 (Given - Provider: Jacky Russo, FABIO) lisinopriL (PRINIVIL,ZESTRIL) 20 mg, hydroCHLOROthiazide (HYDRODIURIL) 12.5 mg COMBO Oral, Daily, First dose on 06/07/22 at 1700 1650 (Given - Provider: Sherri Armijo RN) 1203 (Given - Provider: Jacky Russo, FABIO) metFORMIN (GLUCOPHAGE) tablet 1,000 mg 1,000 mg, Oral, 2 times daily with meals, First dose on 06/07/22 at 0800, Note: Guidelines recommend that metformin be held for 48 hours after use of iodinated contrast media (IVP Dye) in patients with an eGFR less than 30 ml/min/1.73m2, with a history of hepatic disease, alcoholism or heart failure, or in patients who will receive intra-arterial iodinated contrast. 0928 (Given - Provider: Sherri Armijo RN)1650 (Given - Provider: Sherri Armijo RN) 0954 (Given - Provider: Jacky Russo, RN)1620 (Given - Provider: Jacky Russo, RN) multivitamin (THERAGRAN) per tablet 1 tablet 1 tablet, Oral, Daily, First dose on 06/07/22 at 0900 0928 (Given - Provider: Sherri Armijo RN) 0955 (Given - Provider: Jacky Russo RN) potassium chloride 20 mEq in 100 mL IVPB (CANCELED) 20 mEq, Intravenous, at 100 mL/hr, Every 1 hour if indicated in MAR calculator, First dose on Thu06/06/22 at 2200, DKA Potassium Corrective Scale for Potassium LESS THAN 4 Check with physician if patient is ESRD. VESICANT 2200 (Canceled Entry - Provider: Piedad Coats RN)2300 (Canceled Entry - Provider: Piedad Coats RN) 0000 (Canceled Entry - Provider: Linda Holguin RN)0200 (Canceled Entry - Provider: Linda Holguin RN)0211 (New Bag - Provider: Piedad Coats RN)0239 (Rate/Dose Verify - Provider: Piedad Coats RN)0300 (Canceled Entry - Provider: Linda Holguin RN)0311 (Stopped - Provider: Piedad Coats RN)0400 (Canceled Entry - Provider: Linda Holguin RN)0500 (Canceled Entry - Provider: Piedad Coats RN)0551 (Not Given - Provider: Piedad Coats RN - Reason: Order parameters not met)0600 (Canceled Entry - Provider: Piedad Coats RN)0700 (Canceled Entry - Provider: Piedad Coats RN)0800 (Canceled Entry - Provider: Sherri Armijo RN)0900 (Canceled Entry - Provider: Sherri Armijo RN)1100 (Canceled Entry - Provider: Sherri Armijo RN)1158 (New Bag - Provider: Sherri Armijo RN)1200 (Not Given - Provider: Sherri Armijo RN - Reason: Other - Comment: per protocol)1232 (Paused - Provider: Sherri Armijo RN)1300 (Not Given - Provider: Sherri Armijo RN - Reason: Other)1348 (Restarted - Provider: Sherri Armijo RN)1400 (Not Given - Provider: Sherri Armijo RN - Reason: Order parameters not met)1415 (Stopped - Provider: Sherri Armijo RN)1500 (Not Given - Provider: Sherri Armijo RN - Reason: Order parameters not met)1654 (New Bag - Provider: Sherri Armijo RN)1700 (Not Given - Provider: Sherri Armijo RN - Reason: Order parameters not met)1759 (Stopped - Provider: Piedad Coats RN)1800 (Canceled Entry - Provider: Sherri Armijo RN - Comment: not given)1900 (Canceled Entry - Provider: Sherri Armijo RN - Comment: not given)2000 (Canceled Entry - Provider: Sherri Armijo RN - Comment: not given) potassium chloride SA (K-DUR,KLOR-CON) CR tablet 20 mEq (COMPLETED) 20 mEq, Oral, Once, On 06/08/22 at 0745, For 1 dose, 20mEq orally x 1 for serum Potassium in range of 3.5-4 mEq/L per Critical Care Electrolyte Replacement Therapy. DO NOT CRUSH OR CHEW (if instructed may dissolve tablet(s) in liquid) DO NOT ADMINISTER DISSOLVED TABLET VIA SURGICALLY PLACED TUBE OR TUBE less than 14 [place]. To administer dissolved tablet(s) mix with 4 ounces of water over 2-3 minutes, stir for 30 seconds prior to administration; rinse dosing cup and administer residual medication to ensure full dose given 0954 (Given - Provider: Jacky Russo, RN) senna-docusate (SENNA-S) 8.6-50 mg per tablet 1 tablet 1 tablet, Oral, 2 times daily, First dose on Thu06/06/22 at 2135, NOT for abdominal surgery patients. Hold for loose stools. Do Not Crush or Chew if administering orally due to bitter taste. May be crushed if given via tube. 2135 (Canceled Entry - Provider: Piedad Coats RN - Comment: NPO pending swallow eval) 0927 (Given - Provider: Sherri Armijo, RN)2100 (Given - Provider: Piedad Coats RN) 0955 (Given - Provider: Jacky Russo, RN) sodium chloride (PF) (NS) flush 5 mL(Linked Group 1) 5 mL, Intravenous, Every 8 hours scheduled, First dose on Thu06/06/22 at 2200, Saline lock 2200 (Given - Provider: Piedad Coats RN) 0524 (Given - Provider: Piedad Coats, RN)1352 (Given - Provider: Sherri Armijo, RN)2102 (Given - Provider: Piedad Coats, FABIO) 0537 (Given - Provider: Piedad Coats RN)1400 (Not Given - Provider: Jacky Russo, FABIO - Reason: Other - Comment: flushed earlier in shift) sodium chloride 0.9% (NS) bolus 500 mL (COMPLETED) 500 mL, Intravenous, at 967.7 mL/hr, Once, On Thu06/06/22 at 2009, For 1 dose 2047 (New Bag - Provider: Chris Herrera, RN)2145 (Stopped - Provider: Tania Benitez, FABIO) Continuous Medication Order 06/06/2022 06/07/2022 06/08/2022 insulin regular in 0.9 % NaCl (MYXREDLIN) 100 Units/100 mL infusion (CANCELED) 0.1-30 Units/hr (0.1-30 mL/hr), Intravenous, Titrated, Starting on Thu06/06/22 at 2135, Titrate insulin IV per MAR calculator to coincide with the scheduled point of care glucose results., For Downtime Calculator, use: Insulin Infusion DKA 2221 (New Bag - Provider: Chris Herrera RN)2315 (Associate Pump - Provider: Piedad Coats RN)2327 (Rate/Dose Change - Provider: Piedad Coats RN) 0033 (Rate/Dose Verify - Provider: Piedad Coats RN)0107 (Rate/Dose Change - Provider: Piedad Coats RN)0109 (Rate/Dose Verify - Provider: Piedad Coats RN)0148 (Rate/Dose Verify - Provider: Piedad Coats RN)0221 (New Bag - Provider: Piedad Coats RN)0239 (Rate/Dose Verify - Provider: Piedad Coats RN)0316 (Rate/Dose Change - Provider: Piedad Coats RN)0317 (Rate/Dose Verify - Provider: Piedad Coats RN)0423 (Rate/Dose Change - Provider: Piedad Coats RN)0424 (Rate/Dose Verify - Provider: Piedad Coats RN)0519 (Rate/Dose Change - Provider: Piedad Coats RN)0520 (Rate/Dose Verify - Provider: Piedad Coats RN)0601 (Rate/Dose Verify - Provider: Piedad Coats RN)0620 (Rate/Dose Change - Provider: Piedad Coats RN)0658 (Rate/Dose Verify - Provider: Piedad Coats RN)0727 (Rate/Dose Change - Provider: Piedad Coats RN)0728 (Rate/Dose Verify - Provider: Sherri Armijo RN)0803 (Paused - Provider: Sherri Armijo RN)0813 (Paused - Provider: Sherri Armijo RN)1150 (Restarted - Provider: Sherri Armijo RN)1154 (Rate/Dose Verify - Provider: Sherri Armijo RN)1232 (Paused - Provider: Sherri Armijo, FABIO)1348 (Restarted - Provider: Sherri Armijo RN)1353 (Paused - Provider: Sherri Armijo, FABIO)1353 (Restarted - Provider: Sherri Armijo, FABIO)1358 (Paused - Provider: Sherri Armijo, RN)1359 (Restarted - Provider: Sherri Armijo, RN)1427 (Paused - Provider: Sherri Armijo, RN)1446 (Restarted - Provider: Sherri Armijo RN)1457 (Stopped - Provider: Sherri Armijo RN) sodium chloride 0.45 % with KCl 20 mEq/L infusion (CANCELED) 250 mL/hr, Intravenous, Continuous, Starting on Thu06/06/22 at 2135, For 48 hours, When blood glucose LESS than 250 mg/dL: Discontinue this INITIAL IV fluid AND switch to MAINTENANCE IV fluid 0036 (New Bag - Provider: Piedad Coats RN)0148 (Rate/Dose Verify - Provider: Piedad Coats RN)0214 (Stopped - Provider: Piedad Coats RN)1649 (New Bag - Provider: Sherri Armijo RN)2002 (Stopped - Provider: Piedad Coats RN) sodium chloride 0.9% (NS) (CANCELED) 200 mL/hr, Intravenous, Continuous, Starting on Thu06/06/22 at 2009 2148 (New Bag - Provider: Tania Benitez RN)2315 (Stopped - Provider: Piedad Coats RN) PRN Medication Order 06/06/2022 06/07/2022 06/08/2022 acetaminophen (TYLENOL) tablet 650 mg 650 mg, Oral, Every 4 hours PRN, mild pain, fever 100.4 F or greater, headaches, Starting on Thu06/06/22 at 2134 2150 (Given - Provider: Piedad Coats RN) aluminum-magnesium hydroxide-simethicone (MAALOX PLUS) 200-200-20 mg/5 mL suspension 30 mL 30 mL, Oral, Every 4 hours PRN, indigestion, Starting on Thu06/06/22 at 2134 bisacodyL (DULCOLAX) suppository 10 mg 10 mg, Rectal, Daily PRN, constipation, Starting on Thu06/07/22 at 0900, Try oral medications first for constipation. Try rectal medication if oral meds are ineffective, not tolerated, or not ordered. dextrose 5 % and sodium chloride 0.45 % with KCl 20 mEq/L infusion (CANCELED) 125 mL/hr, Intravenous, Continuous PRN, MAINTENANCE IV Fluid (once BG is less than 250 mg/dL) AND Potassium is LESS than 5, Starting on Thu06/06/22 at 2134, Discontinue INITIAL IV Fluid after starting this MAINTENANCE IV Fluid. Do NOT hold infusion for elevated blood glucose without contacting physician. Check with physician if patient is ESRD. 0214 (Rate/Dose Change - Provider: Piedad Coats RN)0239 (Rate/Dose Verify - Provider: Piedad Coats RN)0658 (Rate/Dose Verify - Provider: Piedad Coats RN)0813 (Stopped - Provider: Sherri Armijo RN)1155 (New Bag - Provider: Sherri Armijo RN)1232 (Paused - Provider: Sherri Armijo, RN)1348 (Restarted - Provider: Sherri Armijo, RN)1427 (Paused - Provider: Sherri Armijo, RN)1446 (Restarted - Provider: Sherri Armijo, RN)1500 (Paused - Provider: Sherri Armijo, RN)1501 (Restarted - Provider: Sherri Armijo RN)1504 (Rate/Dose Verify - Provider: Sherri Armijo RN)1649 (Stopped - Provider: Piedad Coats RN) hydrALAZINE (APRESOLINE) injection 10 mg(Linked Group 2) 10 mg, Intravenous, Every 2 hour PRN, As ordered IF HR = 100 or less AND SBP or DBP greater than ranges stated in Hemodynamic Goal orders., Starting on Thu06/06/22 at 2134, Use labetalol first if HR greater than 60. Do not use hydralazine if HR greater than 100. May repeat dose in 15 minutes if SBP or DBP remains above ranges stated in Hemodynamic Goal orders. If, 15 minutes after a repeat dose, SBP or DBP remains above ranges stated in Hemodynamic Goal orders, initiate antihypertensive infusion IF ordered (Otherwise notify physician). If infusion already running, titrate it as ordered. 0002 (See Alternative - Provider: Piedad Coats RN) iopamidoL (ISOVUE-370) 370 mg iodine /mL (76 %) injection 75 mL (COMPLETED) 75 mL, Intravenous, Once in imaging, contrast, Starting on Thu06/06/22 at 1851, For 1 dose 1852 (Contrast Administered - Provider: Marv Arellano, TECHNOLOGIST) labetaloL (NORMODYNE) injection 10 mg(Linked Group 2) 10 mg, Intravenous, Every 2 hour PRN, As ordered IF HR greater than 60 AND SBP or DBP greater than ranges stated in Hemodynamic Goal orders., Starting on Thu06/06/22 at 2133, Do not use labetolol if HR = 60 or less (Use hydralazine in that case, if ordered). May repeat dose in 15 minutes if SBP or DBP remains above ranges stated in Hemodynamic Goal orders. If, 15 minutes after a repeat dose, SBP or DBP remains above ranges stated in Hemodynamic Goal orders, initiate antihypertensive infusion IF ordered (Otherwise notify physician). If infusion already running, titrate it as ordered. 0002 (Given - Provider: Piedad Coats RN) magnesium hydroxide (MOM) 400 mg/5 mL suspension 2,400 mg 2,400 mg (30 mL), Oral, Daily PRN, constipation, Starting on Thu06/06/22 at 2133, If no bowel movement in 24 hours after Sennosides (SENNA) administration. melatonin Tab 5 mg 5 mg, Oral, Nightly PRN, Sleep, Starting on Thu06/06/22 at 2133, If still awake in 1 hour proceed to trazodone (Desyrel) morphine injection 2-4 mg 2-4 mg, Intravenous, Every 3 hours PRN (may repeat), moderate to severe pain, Starting on Thu06/06/22 at 4, Initiate with 2 mg IV every 3 hours prn moderate to severe pain. For unrelieved pain, may repeat 2 mg within 30 minutes of initial dose. If pain is RELIEVED after repeat dose, change to 4 mg every 3 hours prn moderate to severe pain. If pain is UNrelieved after repeat dose, or patient requires dose reduction, call physician. May use IV for breakthrough pain or if unable to tolerate enteral routes. naloxone (NARCAN) injection 0.1 mg(Linked Group 3) 0.1 mg, Intravenous, As needed, opioid reversal, For respiratory rate less than or equal to 8 per minute., Starting on Thu06/06/22 at 2133, Mix nalOXone (NARCAN) 0.4 mg (1mL) with 9 mL of Normal Saline to total 10 mL. Administer 0.1 mg (2.5mL) IV Push every 2 minutes until respiratory rate is 10 or greater. naloxone (NARCAN) injection 0.4 mg(Linked Group 3) 0.4 mg, Intravenous, As needed, opioid reversal, patient is pulseless, breathless, and unresponsive, Starting on Thu06/06/22 at 2134, Call a code first, then administer naloxone dose undiluted IV Push over 30 seconds. nitroGLYCERIN (NITROSTAT) SL tablet 0.4 mg 0.4 mg, Sublingual, Every 5 min PRN, chest pain, Starting on Thu06/06/22 at 2134, For chest pain. May give up to 3 doses. Call physician for chest pain unrelieved by Nitroglycerin, or recurrent chest pain. DO NOT CRUSH OR CHEW. ondansetron (ZOFRAN) injection 4 mg(Linked Group 4) 4 mg, Intravenous, Every 6 hours PRN, nausea, vomiting, Starting on Thu06/06/22 at 4, Use oral route first, if tolerated. 08 (Given - Provider: Jacky Russo RN) ondansetron (ZOFRAN-ODT) disintegrating tablet 4 mg(Linked Group 4) 4 mg, Oral, Every 6 hours PRN, nausea, vomiting, Starting on Thu06/06/22 at 2134, Use oral route first, if tolerated. Formulation requires tablet remain in sealed package until immediately prior to dose being administered. 08 (See Alternative - Provider: Jacky Russo, FABIO) oxyCODONE-acetaminophen (PERCOCET) 5-325 mg per tablet 1-2 tablet 1-2 tablet, Oral, Every 4 hours PRN (may repeat), moderate to severe pain, Starting on Thu06/06/22 at 2134, Initiate with 1 tablet oral every 4 hours prn moderate to severe pain. For unrelieved pain, may repeat 1 tablet within 60 minutes of initial dose. If pain is RELIEVED after repeat dose, change to two tablets of 5/325 mg every 4 hours prn moderate to severe pain. If pain is UNrelieved after repeat dose, or patient requires dose reduction, call physician. senna (SENOKOT) tablet 8.6 mg 8.6 mg (1 tablet), Oral, 2 times daily PRN, constipation, Starting on Thu06/06/22 at 2134 sodium chloride (PF) (NS) 0.9 % contrast line flush 10 mL (COMPLETED) 10 mL, Intravenous, Once in imaging, contrast, Per regional property manager (Radiology) for line patency check prior to contrast administration, Starting on Thu06/06/22 at 1851, For 1 dose 185 (Given - Provider: Marv Arellano, TECHNOLOGIST) sodium chloride (PF) (NS) 0.9 % contrast line flush 80 mL (COMPLETED) 80 mL, Intravenous, Once in imaging, contrast, Per regional property manager (Radiology), Starting on Thu06/06/22 at 1851, For 1 dose, 30 mL BEFORE contrast administration 50 mL AFTER contrast administration 1852 (Given - Provider: Marv Arellano, TECHNOLOGIST) sodium chloride (PF) (NS) flush 5 mL(Linked Group 1) 5 mL, Intravenous, As needed, line care, Starting on Thu06/06/22 at 2134 sodium chloride 0.9% (NS) (CANCELED) 0-150 mL/hr, Intravenous, As needed, To flush line after IV infusions when no maintenance IV ordered or a compatibility issue. Infuse 20ml at the same rate as the secondary infusion, Starting on Thu06/06/22 at 2134, Run as Primary IV. NOT intended for KVO. 1157 (New Bag - Provider: Sherri Armijo RN)1157 (Paused - Provider: Sherri Armijo RN)1157 (Restarted - Provider: Sherri Armijo RN)1158 (Paused - Provider: Sherri Armijo RN)1415 (Restarted - Provider: Sherri Armijo RN)1427 (Paused - Provider: Sherri Armijo RN)1446 (Restarted - Provider: Sherri Armijo RN)1459 (Stopped - Provider: Sherri Armijo RN)1653 (New Bag - Provider: Sherri Armijo RN)1832 (New Bag - Provider: Sherri Armijo RN)2002 (Stopped - Provider: Piedad Coats RN) sodium chloride 0.9% (NS)(Linked Group 1) 0-150 mL/hr, Intravenous, As needed, To flush line after IV infusions when no maintenance IV ordered or a compatibility issue. Infuse 20ml at the same rate as the secondary infusion, Starting on Thu06/06/22 at 2134, Run as Primary IV. NOT intended for KVO. traZODone (DESYREL) tablet 50 mg 50 mg, Oral, Nightly PRN, sleep, Starting on Thu06/06/22 at 2134, To be administered 1 hour after melatonin if still awake. May repeat x 1 dose in 30 minutes if still awake. Linked Groups Order Group 1: Saline lock IV (CANCELED) Routine, Continuous, Starting on Thu06/06/22 at 2135, Until Specified And sodium chloride (PF) (NS) flush 5 mLJump to med 5 mL, Intravenous, As needed, line care, Starting on Thu06/06/22 at 2134 And sodium chloride (PF) (NS) flush 5 mLJump to med 5 mL, Intravenous, Every 8 hours scheduled, First dose on Thu06/06/22 at 2200
Saline lock
And sodium chloride 0.9% (NS)Jump to med 0-150 mL/hr, Intravenous, As needed, To flush line after IV infusions when no maintenance IV ordered or a compatibility issue. Infuse 20ml at the same rate as the secondary infusion, Starting on Thu06/06/22 at 2134
Run as Primary IV. NOT intended for KVO.
Group 2: labetaloL (NORMODYNE) injection 10 mgJump to med 10 mg, Intravenous, Every 2 hour PRN, As ordered IF HR greater than 60 AND SBP or DBP greater than ranges stated in Hemodynamic Goal orders., Starting on Thu06/06/22 at 2134
Do not use labetolol if HR = 60 or less (Use hydralazine in that case, if ordered). May repeat dose in 15 minutes if SBP or DBP remains above ranges stated in Hemodynamic Goal orders. If, 15 minutes after a repeat dose, SBP or DBP remains above ranges stated in Hemodynamic Goal orders, initiate antihypertensive infusion IF ordered (Otherwise notify physician). If infusion already running, titrate it as ordered.
Or hydrALAZINE (APRESOLINE) injection 10 mgJump to med 10 mg, Intravenous, Every 2 hour PRN, As ordered IF HR = 100 or less AND SBP or DBP greater than ranges stated in Hemodynamic Goal orders., Starting on Thu06/06/22 at 2134
Use labetalol first if HR greater than 60. Do not use hydralazine if HR greater than 100. May repeat dose in 15 minutes if SBP or DBP remains above ranges stated in Hemodynamic Goal orders. If, 15 minutes after a repeat dose, SBP or DBP remains above ranges stated in Hemodynamic Goal orders, initiate antihypertensive infusion IF ordered (Otherwise notify physician). If infusion already running, titrate it as ordered.
Group 3: naloxone (NARCAN) injection 0.1 mgJump to med 0.1 mg, Intravenous, As needed, opioid reversal, For respiratory rate less than or equal to 8 per minute., Starting on Thu06/06/22 at 2134
Mix nalOXone (NARCAN) 0.4 mg (1mL) with 9 mL of Normal Saline to total 10 mL. Administer 0.1 mg (2.5mL) IV Push every 2 minutes until respiratory rate is 10 or greater.
And Notify physician (CANCELED) STAT, Until discontinued, Starting on Thu06/06/22 at 2135, Until Specified
Respiratory rate less than: 8
For respiratory rate less than or equal to 8, notify physician and/or appropriate staff for additional orders. And naloxone (NARCAN) injection 0.4 mgJump to med 0.4 mg, Intravenous, As needed, opioid reversal, patient is pulseless, breathless, and unresponsive, Starting on Thu06/06/22 at 2134
Call a code first, then administer naloxone dose undiluted IV Push over 30 seconds.
Group 4: ondansetron (ZOFRAN-ODT) disintegrating tablet 4 mgJump to med 4 mg, Oral, Every 6 hours PRN, nausea, vomiting, Starting on Thu06/06/22 at 2134
Use oral route first, if tolerated. Formulation requires tablet remain in sealed package until immediately prior to dose being administered.
Or ondansetron (ZOFRAN) injection 4 mgJump to med 4 mg, Intravenous, Every 6 hours PRN, nausea, vomiting, Starting on Thu06/06/22 at 2134
Use oral route first, if tolerated.
Care Teams (unrecognized sec tion and content) [employer] Relationship Specialty Start Date End Date Jaime Shine MD [address] [phone] PCP - General Internal Medicine 04/17/20 [employer] Relationship Specialty Start Date End Date Jaime Shine MD [address] [place] [address] [phone] PCP - General Internal Medicine 04/17/20 [employer] Relationship Specialty Start Date End Date Jaime Shine MD [address] [phone] PCP - General Internal Medicine 04/17/20 [employer] Relationship Specialty Start Date End Date Jaime Shine MD [address] [phone] PCP - General Internal Medicine 04/17/20 [employer]amping [employer] Relationship Specialty Start Date End Date Enedina James CNP [address] [phone] PCP - General Family Medicine 04/09/23 [employer]amping [employer] Tender Relationship Specialty Start Date End Date Enedina James CNP [address] [phone] PCP - General Family Medicine 04/09/23 [employer]amping [employer] Relationship Specialty Start Date End Date Enedina James CNP [address] [phone] PCP - General Family Medicine 04/09/23 [employer]amping [employer] Tender Relationship Specialty Start Date End Date Emir Orozco MD [address] [place] [address] PCP - General Family Medicine 03/31/24 [employer]amping [employer] Relationship Specialty Start Date End Date No, Physician [facility] PCP - General 02/17/24 FOR RECORDS PERTAINING TO PATIENTS WHO ARE OR HAVE BEEN ENROLLED IN A CHEMICAL DEPENDENCY/SUBSTANCEABUSE PROGRAM, SOME INFORMATION MAY BE OMITTED. This clinical summary was aggregated from multiple sources. Caution should be exercised in using it in the provision of clinical care. This summary normalizes information from multiple sources, and as a consequence, information in this document may materially change the coding, format and clinical context of patient data. In addition, data may be omitted in some cases. CLINICAL DECISIONS SHOULD BE BASED ON THE PRIMARY CLINICAL RECORDS. [employer] [facility]. provides no warranty or guarantee of the accuracy or completeness of information in this document.
--- NOTE | 2025-05-07 08:54 | RAD_ITS ---
PROCEDURE: CHEST 1 VIEW (PORTABLE) 05/07/2025 REASON FOR EXAM: SHORTNESS OF BREATH TECHNIQUE: Frontal view of the chest. COMPARISON: None FINDINGS: There is cardiomegaly. There is multifocal airspace disease most significant in the upper and lower lobes of the left lung. There may be a superimposed left pleural effusion RAD/Chest 1 View (Portable) IMPRESSION: Multifocal lung disease may be atelectasis or pneumonia. Suspect a left pleura l effusion Reading Location: [id number]
[2025-05-07 09:00] LABS: Hematocrit 36.0 % (37-47); Hemoglobin 10.9 g/dL (12.0-15.0); Immature Granulocytes Count 0.040 X10^3/uL (0.0-0.0); Mean Corp Hgb Conc 30.3 g/dL (32-36); Mean Corpuscular Volume 94.0 fL (81-99); Mean Platelet Vol. 8.7 fl (6.2-12.0); NRBC Flagged by Analyzer 0 % (0-5); Platelet Count 219 K/mm3 (150-450); RBC Distribution Width CV 18.2 % (11.6-14.6); RBC Distribution Width SD 62.5 fl (35.1-43.9); Red Blood Count 3.83 M/mm3 (4.2-5.4); White Blood Count 11.4 K/mm3 (4.4-11.0)
[2025-05-07 09:08] LABS: Prothrombin Time (Protime)PT. 20.1 SECONDS (11.7-14.9)
[2025-05-07 09:32] LABS: Pro- Brain NATRIURETIC PEPTIDE 10583 pg/mL (<=900)
[2025-05-07 09:33] LABS: Anion Gap 12 (5-15); BUN 17 mg/dL (4-19); BUN/Creat Ratio 25.8 RATIO (10-20); Calcium,Total 8.7 mg/dL (7.6-11.0); Carbon Dioxide 25.1 mmol/L (21.0-32.0); Chloride 103 mmol/L (98-108); Estimated Creatinine Clearance 63.31 ml/min (50-250); Glucose 272 mg/dL (70-99); Potassium 4.7 mmol/L (3.3-5.1)
--- OUTSIDE RECORDS SUMMARY | 2025-05-07 11:09 | XMS RPT_ITS | CCD ---
Author Organization [facility] Inform ion Partnership [employer] TE[employer] [facility] Care Team Providers Care Fingerer Name Role Phone Unavailable Unavailable Unavailable Lucian [...] Unavailab Emir Bo MD Primary Care Provider [phone] SELF, SELF Referring Unavailable EMIR OROZCO Attending [...] reactions to drug 0 GI Intolerance, Dyspepsia [facility] (15 sources) POISON RHONDA EXTRACT; Translations: [POISON RHONDA EXTRACT] Drug Allergy 0 [facility] (14 sources) strawberry allergenic extract; Translations: [STRAWBERRY] Drug Allergy 0 [facility] (10 sources) Poison Saxon Extract; Translations: [POISON OAK EXTRACT] Propensity to adverse reactions to drug 2 Unknown [facility] (1 source) Latex Propensity to adverse reactions to drug 4 [facility] (1 source) [place] Propensity to adverse reactions to drug 0 [facility] (1 source) Extract Of Poison Saxon Propensity to adverse reactions to drug 2 Rash [facility] Medications Current Medications Medication Drug Class(es) Dates [...] mg docusate sodium 50 mg / sennosides, detention 8.6 mg oral tablet (1 source) Start: [...] AND switch to MAINTENANCE IV fluid sennosides, detention 8.6 mg oral tablet (1 source) Start: [...] 04-17-2020 04-17-2020 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, [address] Calcium [Mass/Vol] 8.4 mg/dL Normal 7.6-11.0 [facility] Comment on above: Order Comment: 207.1 Performed By: #### L 501.5200, L100.0500, L500.2500, L300.3900 #### [facility] [address] [place], [address] Chloride [Moles/Vol] 100 mmol/L Normal 98-108 [facility] Comment on above: Order Comment: 207.1 Performed By: #### L 501.5200, L100.0500, L500.2500, L300.3900 #### [facility] [address] [place], [address] CO2 [Moles/Vol] 23.4 mmol/L Normal 21.0-32.0 [facility] Comment on above: Order Comment: 207.1 Performed By: #### L 501.5200, L100.0500, L500.2500, L300.3900 #### [facility] [address] [place], [address] Creatinine [Mass/Vol] 0.81 mg/dL Normal 0.70-1.20 [facility] Comment on above: Order Comment: 207.1 Performed By: #### L 501.5200, L100.0500, L500.2500, L300.3900 #### [facility] [address] [place], [address] GAP 10 Normal 5-15 [facility] Comment on above: Order Comment: 207.1 Performed By: #### L 501.5200, L100.0500, L500.2500, L300.3900 #### [facility] [address] [place], [address] GFR/1.73 sq M.predicted among non-blacks MDRD (S/P/Bld) [Vol rate/Area] 76 mL/min/{1.73_m2} Normal >60 [facility] Comment on above: Order Comment: 207.1 Result Comment: mL/m in/1.73m2 CKD-EPI Creatinine Equation (2020) Performed By: #### L 501.5200, L100.0500, L500.2500, L300.3900 #### [facility] [address] [place], [address] Glucose [Mass/Vol] 67 mg/dL Low 70-99 [facility] Comment on above: Order Comment: 207.1 Performed By: #### L 501.5200, L100.0500, L500.2500, L300.3900 #### [facility] [address] [place], [address] Potassium [Moles/Vol] 5.0 mmol/L Normal 3.3-5.1 [facility] Comment on above: Order Comment: 207.1 Performed By: #### L 501.5200, L100.0500, L500.2500, L300.3900 #### [facility] [address] [place], [address] Sodium [Moles/Vol] 133 mmol/L Normal 133-145 [facility] Comment on above: Order Comment: 207.1 Performed By: #### L 501.5200, L100.0500, L500.2500, L300.3900 #### [facility] [address] [place], [address] Urea nitrogen [Mass/Vol] 53 mg/dL High 4-19 [facility] Comment on above: Order Comment: 207.1 Performed By: #### L 501.5200, L100.0500, L500.2500, L300.3900 #### [facility] [address] [place], [address] CBC-Complete Blood Cnt No Di ffon 04-25-2025 Erythrocyte distribution width (RBC) [Ratio] 18.4 % High 11.6-14.6 [facility] Comment on above: Order Comment: 207.1 Performed By: #### L 501.5200, L100.0500, L500.2500, L300.3900 #### [facility] [address] [place], [address] Hematocrit (Bld) [Volume fraction] 27.2 % Low 37-47 [facility] Comment on above: Order Comment: 207.1 Performed By: #### L 501.5200, L100.0500, L500.2500, L300.3900 #### [facility] [address] [place], [address] Hemoglobin (Bld) [Mass/Vol] 8.2 g/dL Low 12.0-15.0 [facility] Comment on above: Order Comment: 207.1 Performed By: #### L 501.5200, L100.0500, L500.2500, L300.3900 #### [facility] [address] [place], [address] MCH (RBC) [Entitic mass] 28.8 pg Normal 27.0-32.0 [facility] Comment on above: Order Comment: 207.1 Performed By: #### L 501.5200, L100.0500, L500.2500, L300.3900 #### [facility] [address] [place], [address] MCHC (RBC) [Mass/Vol] 30.1 g/dL Low 32-36 [facility] Comment on above: Order Comment: 207.1 Performed By: #### L 501.5200, L100.0500, L500.2500, L300.3900 #### [facility] [address] [place], [address] MCV (RBC) [Entitic vol] 95.4 fL Normal 81-99 [facility] Comment on above: Order Comment: 207.1 Performed By: #### L 501.5200, L100.0500, L500.2500, L300.3900 #### [facility] [address] [place], [address] Platelet mean volume (Bld) [Entitic vol] 8.7 fL Normal 6.2-12.0 [facility] Comment on above: Order Comment: 207.1 Performed By: #### L 501.5200, L100.0500, L500.2500, L300.3900 #### [facility] [address] [place], [address] Platelets (Bld) [#/Vol] 324 10*3/uL Normal 150-450 [facility] Comment on above: Order Comment: 207.1 Performed By: #### L 501.5200, L100.0500, L500.2500, L300.3900 #### [facility] [address] [place], [address] RBC (Bld) [#/Vol] 2.85 10*6/uL Low 4.2-5.4 [facility] Comment on above: Order Comment: 207.1 Performed By: #### L 501.5200, L100.0500, L500.2500, L300.3900 #### [facility] [address] [place], [address] RDW SD 61.6 fl High 35.1-43.9 [facility] Comment on above: Order Comment: 207.1 Performed By: #### L 501.5200, L100.0500, L500.2500, L300.3900 #### [facility] [address] [place], [address] WBC (Bld) [#/Vol] 17.8 10*3/uL High 4.4-11.0 [facility] Comment on above: Order Comment: 207.1 Performed By: #### L 501.5200, L100.0500, L500.2500, L300.3900 #### [facility] [address] [place], [address] Magnesiumon 04-25-2025 Magnesium [Mass/Vol] 3.1 mg/dL High 1.5-2.2 [facility] Comment on above: Order Comment: 207.1 Performed By: #### L 501.5200, L100.0500, L500.2500, L300.3900 #### [facility] [address] [place], [address] Prothrombin Time w/INRon INR Coag (PPP) [Relative time] 2.4 {INR} Normal [facility] Comment on above: Order Comment: 207.1 Performed By: #### L 501.5200, L100.0500, L500.2500, L300.3900 #### [facility] [address] [place], [address] PT Coag (PPP) [Time] 26.8 s High 11.7-14.9 [facility] Comment on above: Order Comment: 207.1 Performed By: #### L 501.5200, L100.0500, L500.2500, L300.3900 #### [facility] [address] [place], [address] CNPNon 04-24-2025 CNPN Normal [facility] Prothrombin Time w/INRon INR Coag (PPP) [Relative time] 2.4 {INR} Normal [facility] Comment on above: Performed By: #### L 300.3900 #### [facility] [address] [place], [address] PT Coag (PPP) [Time] 26.3 s High 11.7-14.9 [facility] Comment on above: Performed By: #### L 300.3900 #### [facility] [address] [place], [address] Basic metabolic 2000 panelon 04-22-2025 Anion gap [Moles/Vol] 11 mmol/L Normal 8-15 [facility] Comment on above: Order Comment: Speci men Type: BLOOD SPECIMENOrdering Facility: [facility] Address: [address] [place] [address] Performed By: #### 2 4321-2 ####[facility] [id number] [place] [id number] [place] Calcium [Mass/Vol] 8.3 mg/dL Low 8.5-10.2 [facility] Comment on above: Order Comment: Speci men Type: BLOOD SPECIMENOrdering Facility: [facility] Address: [address] [place] [address] Performed By: #### 2 4321-2 ####[facility]ORY[facility] [id number] [place] [id number] [place] Chloride [Moles/Vol] 97 mmol/L Low 98-107 [facility] Comment on above: Order Comment: Speci men Type: BLOOD SPECIMENOrdering Facility: [facility] Address: [address] [place] [address] Performed By: #### 2 4321-2 ####[facility]ORY[facility] [id number] [place] [id number] [place] CO2 [Moles/Vol] 23 mmol/L Normal 22-30 [facility] Comment on above: Order Comment: Speci men Type: BLOOD SPECIMENOrdering Facility: [facility] Address: [address] [place] [address] Performed By: #### 2 4321-2 ####[facility]ITAL[facility] [id number] [address] STATES OF [facility] Creatinine [Mass/Vol] 0.55 mg/dL Low 0.58-0.96 [facility] Comment on above: Order Comment: Speci men Type: BLOOD SPECIMENOrdering Facility: [facility] Address: [address] [place] [address] Performed By: #### 2 4321-2 ####[facility]ORYCL[facility] [id number] [address] [place] eGFRcr SerPlBld CKD-EPI 2020 96 mL/min/1.73m??? Normal >=60 [facility] Comment on above: Order Comment: Speci men Type: BLOOD SPECIMENOrdering Facility: [facility] Address: [address] [place] [address] Result Comment: Yessica mated Glomerular Filtration Rate [...] actual GFR. Performed By: #### 2 4321-2 ####[facility]ORYCLIA [id number] [place] [address] [place] Glucose [Mass/Vol] 138 mg/dL High 74-99 [facility] Comment on above: Order Comment: Speci men Type: BLOOD SPECIMENOrdering Facility: [facility] Address: [address] [place], [place] [address] Result Comment: The [place] [employer] (ADA) provides guidance for cutoff [...] Standards of Medical Care in Diabetes 2016, [place] [employer]. Diabetes Care. 2016.39(Suppl 1). Performed By: #### 2 4321-2 ####[facility]ORYCLIA [id number] [place] [address] [place] Potassium [Moles/Vol] 4.4 mmol/L Normal 3.7-5.1 [facility] Comment on above: Order Comment: Víctori men Type: BLOOD SPECIMENOrdering Facility: [facility] Address: [address] [place] [address] Performed By: #### 2 4321-2 ####[facility]ORYCLIA [id number] [place] [address] [place] Sodium [Moles/Vol] 131 mmol/L Low 136-144 [facility] Comment on above: Order Comment: Speci men Type: BLOOD SPECIMENOrdering Facility: [facility] Address: [address] [place] [address] Performed By: #### 2 4321-2 ####[facility]ORYCLIA [id number] [place] [address] [place] Urea nitrogen [Mass/Vol] 28 mg/dL High 7-21 [facility] Comment on above: Order Comment: Speci men Type: BLOOD SPECIMENOrdering Facility: [facility] Address: [address] [place] [address] Performed By: #### 2 4321-2 ####[facility]ORYCLIA [id number] [address] [place] CASE MANAGEMon 04-22-2025 CASE MANAGEM Normal [facility] CASE MANAGEM Normal [facility] CBC panel Auto (Bld)on 04-22 Erythrocyte distribution width (RBC) [Ratio] 17.4 % High 11.5-15.0 [facility] Comment on above: Order Comment: Speci men Type: BLOOD SPECIMENOrdering Facility: [facility] Address: [address] [place] [address] Performed By: #### 5 8410-2 ####[facility]ORYCLIA [id number] [address] STATES [facility] Hematocrit (Bld) [Volume fraction] 29.1 % Low 36.0-46.0 [facility] Comment on above: Order Comment: Speci men Type: BLOOD SPECIMENOrdering Facility: [facility] Address: [address] [place] [address] Performed By: #### 5 8410-2 ####[facility]ORYCLIA [id number] [address] [place] Hemoglobin (Bld) [Mass/Vol] 9.4 g/dL Low 11.5-15.5 [facility] Comment on above: Order Comment: Speci men Type: BLOOD SPECIMENOrdering Facility: [facility] Address: [address] [place] [address] Performed By: #### 5 8410-2 ####[facility]ORY[facility]IA [id number] [address] [place] MCH (RBC) [Entitic mass] 29.8 pg Normal 26.0-34.0 [facility] Comment on above: Order Comment: Speci men Type: BLOOD SPECIMENOrdering Facility: [facility] Address: [address] [place] [address] Performed By: #### 5 8410-2 ####[facility]ORYCLIA [id number] [address] STATES OF [facility] MCHC (RBC) [Mass/Vol] 32.3 g/dL Normal 30.5-36.0 [facility] Comment on above: Order Comment: Speci men Type: BLOOD SPECIMENOrdering Facility: [facility] Address: [address] [place] [address] Performed By: #### 5 8410-2 ####[facility]ORYCLIA [id number] [address] OF [facility] MCV (RBC) [Entitic vol] 92.4 fL Normal 80.0-100.0 [facility] Comment on above: Order Comment: Speci men Type: BLOOD SPECIMENOrdering Facility: [facility] Address: [address] [place] [address] Performed By: #### 5 8410-2 ####[facility]ORYCLIA [id number] [address] Nucleated RBC (Bld) [#/Vol] 10*3/uL Normal <0.01 [facility] Comment on above: Order Comment: Speci men Type: BLOOD SPECIMENOrdering Facility: [facility] Address: [address] [place] [address] Performed By: #### 5 8410-2 ####[facility]ORYCLIA [id number] [address] [place] Platelet mean volume (Bld) [Entitic vol] 9.0 fL Normal 9.0-12.7 [facility] Comment on above: Order Comment: Speci men Type: BLOOD SPECIMENOrdering Facility: [facility] Address: [address] [place] [address] Performed By: #### 5 8410-2 ####[facility]ORYCLIA [id number] [address] [place] Platelets (Bld) [#/Vol] 267 10*3/uL Normal 150-400 [facility] Comment on above: Order Comment: Speci men Type: BLOOD SPECIMENOrdering Facility: [facility] Address: [address] [place] [address] Performed By: #### 5 8410-2 ####[facility]ORYCLIA [id number] [address] STATES OF [facility] RBC (Bld) [#/Vol] 3.15 10*6/uL Low 3.90-5.20 [facility] Comment on above: Order Comment: Speci men Type: BLOOD SPECIMENOrdering Facility: [facility] Address: [address] [place] [address] Performed By: #### 5 8410-2 ####[facility]ORYCLIA [id number] [address] WBC (Bld) [#/Vol] 15.78 10*3/uL High 3.70-11.00 [facility] Comment on above: Order Comment: Speci men Type: BLOOD SPECIMENOrdering Facility: [facility] Address: [address] [place] [address] Performed By: #### 5 8410-2 ####[facility]ORYCLIA [id number] [address] CNDSon 04-22-2025 CNDS Normal [facility] CONSULT PROGon 04-22-2025 CONSULT PROG Normal [facility] PT panel Coag (PPP)on 2024 INR Coag (PPP) [Relative time] 2.7 {INR} High 0.9-1.3 [facility] Comment on above: Order Comment: Speci men Type: BLOOD SPECIMENOrdering Facility: [facility] Address: [address] [place] [address] Result Comment: Tequila min K Antagonist (VKA) Therapeutic Range: INR 2 to 3 (Target INR of 2.5)Note: For patients treated with VKA drugs, such as warfarin, the [place] [employer] 2012 Guideline recommends [...] al. Chest 2012, 141:7S-47SNishimmary RA, et al. [facility] 2017, 70: 252-289 Performed By: #### 3 4528-0 ####[facility]ORYCLIA [id number] [place] [address] [place] PT Coag (PPP) [Time] 25.5 s High 9.7-13.0 [facility] Comment on above: Order Comment: Franco newton Type: BLOOD SPECIMENOrdering Facility: [facility] Address: [address] [place] [address] Performed By: #### 3 4528-0 ####[facility]ORYCLIA [id number] [place] [address] [place] Basic metabolic 2000 panelon 04-21-2025 Anion gap [Moles/Vol] 12 mmol/L Normal 8-15 [facility] Comment on above: Order Comment: Franco newton Type: BLOOD SPECIMENOrdering Facility: [facility] Address: [address] [place] [address] Performed By: #### 2 777-1, 96084-9 ####[facility]ORYCLIA [id number] [address] [place] Calcium [Mass/Vol] 8.5 mg/dL Normal 8.5-10.2 [facility] Comment on above: Order Comment: Franco newton Type: BLOOD SPECIMENOrdering Facility: [facility] Address: [address] [place] [address] Performed By: #### 2 777-1, 37524-1 ####[facility]ORYCLIA [id number] [address] STATES [facility] Chloride [Moles/Vol] 97 mmol/L Low 98-107 [facility] Comment on above: Order Comment: Speci men Type: BLOOD SPECIMENOrdering Facility: [facility] Address: [address] [place] [address] Performed By: #### 2 777-1, 20201-8 ####[facility]ORYCLIA [id number] [address] STATES OF [facility] CO2 [Moles/Vol] 23 mmol/L Normal 22-30 [facility] Comment on above: Order Comment: Speci men Type: BLOOD SPECIMENOrdering Facility: [facility] Address: [address] [place] [address] Performed By: #### 2 777-1, 20603-9 ####[facility]ITALCLIA [id number] [address] STATES OF [facility] Creatinine [Mass/Vol] 0.51 mg/dL Low 0.58-0.96 [facility] Comment on above: Order Comment: Speci men Type: BLOOD SPECIMENOrdering Facility: [facility] Address: [address] [place] [address] Performed By: #### 2 777-1, 36139-2 ####[facility]ITALCLIA [id number] [address] eGFRcr SerPlBld CKD-EPI 2020 98 mL/min/1.73m??? Normal >=60 [facility] Comment on above: Order Comment: Speci men Type: BLOOD SPECIMENOrdering Facility: [facility] Address: [address] [place] [address] Result Comment: Yessica mated Glomerular Filtration Rate [...] actual GFR. Performed By: #### 2 777-1, 85581-5 ####[facility]ORYCLIA [id number] [place] [address] [place] Glucose [Mass/Vol] 153 mg/dL High 74-99 [facility] Comment on above: Order Comment: Franco newton Type: BLOOD SPECIMENOrdering Facility: [facility] Address: [address] [place] [address] Result Comment: The [place] [employer] (ADA) provides guidance for cutoff [...] Standards of Medical Care in Diabetes 2016, [place] [employer]. Diabetes Care. 2016.39(Suppl 1). Performed By: #### 2 777-1, 32090-6 ####[facility]ORYCLIA [id number] [place] [address] [place] Potassium [Moles/Vol] 4.8 mmol/L Normal 3.7-5.1 [facility] Comment on above: Order Comment: Franco newton Type: BLOOD SPECIMENOrdering Facility: [facility] Address: [address] [place] [address] Performed By: #### 2 777-1, 38776-6 ####[facility]ORYCLIA [id number] [place] [address] [place] Sodium [Moles/Vol] 132 mmol/L Low 136-144 [facility] Comment on above: Order Comment: Franco men Type: BLOOD SPECIMENOrdering Facility: [facility] Address: [address] [place] [address] Performed By: #### 2 777-1, 76048-2 ####[facility]ORYCLIA [id number] [place] [address] [place] Urea nitrogen [Mass/Vol] 26 mg/dL High 7-21 [facility] Comment on above: Order Comment: Specklaudia aman Type: BLOOD SPECIMENOrdering Facility: [facility] Address: [address] [place] [address] [place] [address] Performed By: #### 2 777-1, 35435-4 ####[facility]ORYCLIA [id number] [address] [place] CASE MANAGEMon 04-21-2025 CASE MANAGEM Normal [facility] CONSULT PROGon 04-21-2025 CONSULT PROG Normal [facility] ECG COMPLETEon 04-21-2025 ECG COMPLETE Normal [facility] PT panel Coag (PPP)on 2024 INR Coag (PPP) [Relative time] 1.6 {INR} High 0.9-1.3 [facility] Comment on above: Order Comment: Franco newton Type: BLOOD SPECIMENOrdering Facility: [facility] Address: [facility] [place] [address] Result Comment: Tequila min K Antagonist (VKA) Therapeutic Range: INR 2 to 3 (Target INR of 2.5)Note: For patients treated with VKA drugs, such as warfarin, the [place] [employer] 2012 Guideline recommends [...] al. Chest 2012, 141:7S-47SNishimura RA, et al. [facility] 2017, 70: 252-289 Performed By: #### 3 4528-0 ####[facility]ORYCLIA [id number] [address] [place] PT Coag (PPP) [Time] 15.4 s High 9.7-13.0 [facility] Comment on above: Order Comment: Speci men Type: BLOOD SPECIMENOrdering Facility: [facility] Address: [address] [place] [address] Performed By: #### 3 4528-0 ####[facility]ORYCLIA [id number] [place] [address] [place] Phosphate SerPl-mCncon 04-21 Phosphate [Mass/Vol] 3.7 mg/dL Normal 2.7-4.8 [facility] Comment on above: Order Comment: Speci men Type: BLOOD SPECIMENOrdering Facility: [facility] Address: [address] [place] [address] Performed By: #### 2 777-1, 64497-2 ####[facility]ORYCLIA [id number] [address] [place] THERAPY NTon 04-21-2025 THERAPY NT Normal [facility] THERAPY NT Normal [facility] Basic metabolic 2000 panelon 04-20-2025 Anion gap [Moles/Vol] 10 mmol/L Normal 8-15 [facility] Comment on above: Order Comment: Speci men Type: BLOOD SPECIMENOrdering Facility: [facility] Address: [address] [place] [address] Performed By: #### 2 777-1, 19455-7 ####[facility]ORYCLIA [id number] [place] [address] [place] Calcium [Mass/Vol] 8.4 mg/dL Low 8.5-10.2 [facility] Comment on above: Order Comment: Speci men Type: BLOOD SPECIMENOrdering Facility: [facility] Address: [address] [place] [address] Performed By: #### 2 777-1, 15605-0 ####[facility]ORYCLIA [id number] [place] [address] [place] Chloride [Moles/Vol] 101 mmol/L Normal 98-107 [facility] Comment on above: Order Comment: Speci men Type: BLOOD SPECIMENOrdering Facility: [facility] Address: [address] [place] [address] Performed By: #### 2 777-1, 21588-6 ####[facility]ITALCLIA [id number] [address] [place] CO2 [Moles/Vol] 23 mmol/L Normal 22-30 [facility] Comment on above: Order Comment: Speci men Type: BLOOD SPECIMENOrdering Facility: [facility] Address: [address] [place] [address] Performed By: #### 2 777-1, 28082-8 ####[facility]ITALCLIA [id number] [address] STATES OF [facility] Creatinine [Mass/Vol] 0.53 mg/dL Low 0.58-0.96 [facility] Comment on above: Order Comment: Speci men Type: BLOOD SPECIMENOrdering Facility: [facility] Address: [address] [place] [address] Performed By: #### 2 777-1, 69720-1 ####[facility]ITALCLIA [id number] [address] eGFRcr SerPlBld CKD-EPI 2020 97 mL/min/1.73m??? Normal >=60 [facility] Comment on above: Order Comment: Speci men Type: BLOOD SPECIMENOrdering Facility: [facility] Address: [address] [place] [address] Result Comment: Yessica mated Glomerular Filtration Rate [...] actual GFR. Performed By: #### 2 777-1, 49354-5 ####[facility]ORY[facility] [id number] [address] [place] Glucose [Mass/Vol] 116 mg/dL High 74-99 [facility] Comment on above: Order Comment: Speci men Type: BLOOD SPECIMENOrdering Facility: [facility] Address: [address] [place] [address] Result Comment: The [place] [employer] (ADA) provides guidance for cutoff [...] Standards of Medical Care in Diabetes 2016, [place] [employer]. Diabetes Care. 2016.39(Suppl 1). Performed By: #### 2 777-1, 76934-5 ####[facility]ORYCLIA [id number] [place] [address] [place] Potassium [Moles/Vol] 4.8 mmol/L Normal 3.7-5.1 [facility] Comment on above: Order Comment: Franco aman Type: BLOOD SPECIMENOrdering Facility: [facility] Address: [address] [place] [address] Performed By: #### 2 777-1, 69404-5 ####[facility]ORYCLIA [id number] [place] [address] [place] Sodium [Moles/Vol] 134 mmol/L Low 136-144 [facility] Comment on above: Order Comment: Víctori men Type: BLOOD SPECIMENOrdering Facility: [facility] Address: [address] [place] [address] Performed By: #### 2 777-1, 58155-0 ####[facility]ORYCLIA [id number] [place] [address] [place] Urea nitrogen [Mass/Vol] 20 mg/dL Normal 7-21 [facility] Comment on above: Order Comment: Speci men Type: BLOOD SPECIMENOrdering Facility: [facility] Address: [address] [place] [address] Performed By: #### 2 777-1, 50740-8 ####[facility]ORYCLIA [id number] [address] [place] CASE MANAGEMon 04-20-2025 CASE MANAGEM Normal [facility] CBC panel Auto (Bld)on 04-20 Erythrocyte distribution width (RBC) [Ratio] 17.1 % High 11.5-15.0 [facility] Comment on above: Order Comment: Speci men Type: BLOOD SPECIMENOrdering Facility: [facility] Address: [address] [place] [address] Performed By: #### 5 8410-2 ####[facility]ORYCLIA [id number] [address] [place] Hematocrit (Bld) [Volume fraction] 25.6 % Low 36.0-46.0 [facility] Comment on above: Order Comment: Speci men Type: BLOOD SPECIMENOrdering Facility: [facility] Address: [address] [place] [address] Performed By: #### 5 8410-2 ####[facility]ORYCLIA [id number] [address] [place] Hemoglobin (Bld) [Mass/Vol] 8.3 g/dL Low 11.5-15.5 [facility] Comment on above: Order Comment: Speci men Type: BLOOD SPECIMENOrdering Facility: [facility] Address: [address] [place] [address] Performed By: #### 5 8410-2 ####[facility]ORYCLIA [id number] [address] [place] MCH (RBC) [Entitic mass] 29.9 pg Normal 26.0-34.0 [facility] Comment on above: Order Comment: Speci men Type: BLOOD SPECIMENOrdering Facility: [facility] Address: [address] [place] [address] Performed By: #### 5 8410-2 ####[facility]ORYCLIA [id number] [address] MCHC (RBC) [Mass/Vol] 32.4 g/dL Normal 30.5-36.0 [facility] Comment on above: Order Comment: Speci men Type: BLOOD SPECIMENOrdering Facility: [facility] Address: [address] [place] [address] Performed By: #### 5 8410-2 ####[facility]ORYCLIA [id number] [address] MCV (RBC) [Entitic vol] 92.1 fL Normal 80.0-100.0 [facility] Comment on above: Order Comment: Speci men Type: BLOOD SPECIMENOrdering Facility: [facility] Address: [address] [place] [address] Performed By: #### 5 8410-2 ####[facility]ORYCLIA [id number] [address] Nucleated RBC (Bld) [#/Vol] 0.02 10*3/uL High <0.01 [facility] Comment on above: Order Comment: Speci men Type: BLOOD SPECIMENOrdering Facility: [facility] Address: [address] [place] [address] Performed By: #### 5 8410-2 ####[facility]ORYCLIA [id number] [address] [place] Platelet mean volume (Bld) [Entitic vol] 9.2 fL Normal 9.0-12.7 [facility] Comment on above: Order Comment: Speci men Type: BLOOD SPECIMENOrdering Facility: [facility] Address: [address] [place] [address] Performed By: #### 5 8410-2 ####[facility]ORYCLIA [id number] [address] [place] Platelets (Bld) [#/Vol] 210 10*3/uL Normal 150-400 [facility] Comment on above: Order Comment: Speci men Type: BLOOD SPECIMENOrdering Facility: [facility] Address: [address] [place] [address] Performed By: #### 5 8410-2 ####[facility]ORYCLIA [id number] [address] [place] RBC (Bld) [#/Vol] 2.78 10*6/uL Low 3.90-5.20 [facility] Comment on above: Order Comment: Speci men Type: BLOOD SPECIMENOrdering Facility: [facility] Address: [address] [place] [address] Performed By: #### 5 8410-2 ####[facility]ORYCLIA [id number] [address] [place] WBC (Bld) [#/Vol] 12.74 10*3/uL High 3.70-11.00 [facility] Comment on above: Order Comment: Speci men Type: BLOOD SPECIMENOrdering Facility: [facility] Address: [address] [place] [address] Performed By: #### 5 8410-2 ####[facility]ORYCLIA [id number] [address] CONSULT PROGon 04-20-2025 CONSULT PROG Normal [facility] NUTRITIONon 04-20-2025 NUTRITION Normal [facility] PT EDon 04-20-2025 PT ED Normal [facility] PT panel Coag (PPP)on 2024 INR Coag (PPP) [Relative time] 1.2 {INR} Normal 0.9-1.3 [facility] Comment on above: Order Comment: Speci men Type: BLOOD SPECIMENOrdering Facility: [facility] Address: [address] [place] [address] Result Comment: Tequila min K Antagonist (VKA) Therapeutic Range: INR 2 to 3 (Target INR of 2.5)Note: For patients treated with VKA drugs, such as warfarin, the [place] [employer] 2012 Guideline recommends [...] of 2.5 to 3.5 (target INR of 3).tM GH, et al. Chest 2012, 141:7S-47SNishimura RA, et al. [facility] 2017, 70: 252-289 Performed By: #### 3 4528-0 ####[facility]ATORYCLIA [id number] [place] [address] [place] PT Coag (PPP) [Time] 12.0 s Normal 9.7-13.0 [facility] Comment on above: Order Comment: Speci men Type: BLOOD SPECIMENOrdering Facility: [facility] Address: [address] [place] [address] Performed By: #### 3 4528-0 ####[facility]ORYCLIA [id number] [place] [address] [place] Phosphate SerPl-mCncon 04-20 Phosphate [Mass/Vol] 3.8 mg/dL Normal 2.7-4.8 [facility] Comment on above: Order Comment: Speci men Type: BLOOD SPECIMENOrdering Facility: [facility] Address: [address] [place] [address] Performed By: #### 2 777-1, 34660-3 ####[facility]ORYCLIA [id number] [place] [address] [place] THERAPY NTon 04-20-2025 THERAPY NT Normal [facility] Basic metabolic 2000 panelon 04-19-2025 Anion gap [Moles/Vol] 9 mmol/L Normal 8-15 [facility] Comment on above: Order Comment: Speci men Type: BLOOD SPECIMENOrdering Facility: [facility] Address: [address] [place] [address] Performed By: #### 2 777-1, 38634-6 ####[facility]ORATORYCLIA [id number] [place] [address] [place] Calcium [Mass/Vol] 8.4 mg/dL Low 8.5-10.2 [facility] Comment on above: Order Comment: Speci men Type: BLOOD SPECIMENOrdering Facility: [facility] Address: [address] [place] [address] Performed By: #### 2 777-1, 62647-2 ####[facility]ORYCLIA [id number] [place] [address] [place] Chloride [Moles/Vol] 101 mmol/L Normal 98-107 [facility] Comment on above: Order Comment: Speci men Type: BLOOD SPECIMENOrdering Facility: [facility] Address: [address] [place] [address] Performed By: #### 2 777-1, 63633-0 ####[facility]ORYCLIA [id number] [place] [address] [place] CO2 [Moles/Vol] 24 mmol/L Normal 22-30 [facility] Comment on above: Order Comment: Speci men Type: BLOOD SPECIMENOrdering Facility: [facility] Address: [address] [place] [address] Performed By: #### 2 777-1, 20377-7 ####[facility]ORYCLIA [id number] [place] [address] [place] Creatinine [Mass/Vol] 0.52 mg/dL Low 0.58-0.96 [facility] Comment on above: Order Comment: Speci men Type: BLOOD SPECIMENOrdering Facility: [facility] Address: [address] [place] [address] Performed By: #### 2 777-1, 06709-9 ####[facility]ORYCLIA [id number] [place] [address] [place] eGFRcr SerPlBld CKD-EPI 2020 98 mL/min/1.73m??? Normal >=60 [facility] Comment on above: Order Comment: Franco newton Type: BLOOD SPECIMENOrdering Facility: [facility] Address: [address] [place] [address] Result Comment: Yessica mated Glomerular Filtration Rate [...] actual GFR. Performed By: #### 2 777-1, 40484-4 ####[facility]ORYCLIA [id number] [place] [address] [place] Glucose [Mass/Vol] 135 mg/dL High 74-99 [facility] Comment on above: Order Comment: Franco newton Type: BLOOD SPECIMENOrdering Facility: [facility] Address: [address] [place] [address] Result Comment: The [place] [employer] (ADA) provides guidance for cutoff [...] Standards of Medical Care in Diabetes 2016, [place] [employer]. Diabetes Care. 2016.39(Suppl 1). Performed By: #### 2 777-1, 86174-1 ####[facility]ORYCLIA [id number] [place] [address] [place] Potassium [Moles/Vol] 4.8 mmol/L Normal 3.7-5.1 [facility] Comment on above: Order Comment: Franco newton Type: BLOOD SPECIMENOrdering Facility: [facility] Address: [address] [place] [address] Performed By: #### 2 777-1, 73786-6 ####[facility]ORYCLIA [id number] [place] [address] [place] Sodium [Moles/Vol] 134 mmol/L Low 136-144 [facility] Comment on above: Order Comment: Speci men Type: BLOOD SPECIMENOrdering Facility: [facility] Address: [address] [place] [address] Performed By: #### 2 777-1, 73015-2 ####[facility]ORYCLIA [id number] [place] [address] [place] Urea nitrogen [Mass/Vol] 18 mg/dL Normal 7-21 [facility] Comment on above: Order Comment: Speci men Type: BLOOD SPECIMENOrdering Facility: [facility] Address: [address] [place] [address] Performed By: #### 2 777-1, 29465-3 ####[facility]ORYCLIA [id number] [address] [place] CASE MANAGEMon 04-19-2025 CASE MANAGEM Normal [facility] CBC W Auto Differential pane l (Bld)on 04-19-2025 Basophils (Bld) [#/Vol] 0.04 10*3/uL Normal <0.11 [facility] Comment on above: Order Comment: Speci men Type: BLOOD SPECIMENOrdering Facility: [facility] Address: [address] [place] [address] Performed By: #### 5 7021-8 ####[facility]ORYCLIA [id number] [address] [place] Basophils/100 WBC (Bld) 0.3 % Normal [facility] Comment on above: Order Comment: Speci men Type: BLOOD SPECIMENOrdering Facility: [facility] Address: [address] [place] [address] Performed By: #### 5 7021-8 ####[facility]ORYCLIA [id number] [address] STATES [facility] Differential cell count method Nom (Bld) Auto Normal [facility] Comment on above: Order Comment: Speci men Type: BLOOD SPECIMENOrdering Facility: [facility] Address: [facility] [place] [address] Performed By: #### 5 7021-8 ####[facility]ORYCLIA [id number] [address] [place] Eosinophils (Bld) [#/Vol] 0.12 10*3/uL Normal <0.46 [facility] Comment on above: Order Comment: Speci men Type: BLOOD SPECIMENOrdering Facility: [facility] Address: [address] [place] [address] Performed By: #### 5 7021-8 ####[facility]ORYCLIA [id number] [address] Eosinophils/100 WBC (Bld) 0.9 % Normal [facility] Comment on above: Order Comment: Speci men Type: BLOOD SPECIMENOrdering Facility: [facility] Address: [address] [place] [address] Performed By: #### 5 7021-8 ####[facility]ORYCLIA [id number] [address] [place] Erythrocyte distribution width (RBC) [Ratio] 16.8 % High 11.5-15.0 [facility] Comment on above: Order Comment: Speci men Type: BLOOD SPECIMENOrdering Facility: [facility] Address: [address] [place] [address] Performed By: #### 5 7021-8 ####[facility]ORYCLIA [id number] [address] [place] Hematocrit (Bld) [Volume fraction] 25.7 % Low 36.0-46.0 [facility] Comment on above: Order Comment: Speci men Type: BLOOD SPECIMENOrdering Facility: [facility] Address: [address] [place] [address] Performed By: #### 5 7021-8 ####[facility]ORYCLIA [id number] [place] [address] [place] Hemoglobin (Bld) [Mass/Vol] 8.3 g/dL Low 11.5-15.5 [facility] Comment on above: Order Comment: Speci men Type: BLOOD SPECIMENOrdering Facility: [facility] Address: [address] [place] [address] Performed By: #### 5 7021-8 ####[facility]ORYCLIA [id number] [place] [address] [place] Immature granulocytes (Bld) [#/Vol] 0.12 10*3/uL High <0.10 [facility] Comment on above: Order Comment: Speci men Type: BLOOD SPECIMENOrdering Facility: [facility] Address: [address] [place] [address] Performed By: #### 5 7021-8 ####[facility]ORYCLIA [id number] [address] [place] Immature granulocytes/100 WBC (Bld) 0.9 % Normal [facility] Comment on above: Order Comment: Speci men Type: BLOOD SPECIMENOrdering Facility: [facility] Address: [address] [place] [address] Performed By: #### 5 7021-8 ####[facility]ORYCLIA [id number] [place] [address] [place] Lymphocytes (Bld) [#/Vol] 1.63 10*3/uL Normal 1.00-4.00 [facility] Comment on above: Order Comment: Speci men Type: BLOOD SPECIMENOrdering Facility: [facility] Address: [address] [place] [address] Performed By: #### 5 7021-8 ####[facility]ORYCLIA [id number] [address] [place] Lymphocytes/100 WBC (Bld) 12.9 % Normal [facility] Comment on above: Order Comment: Speci men Type: BLOOD SPECIMENOrdering Facility: [facility] Address: [address] [place] [address] Performed By: #### 5 7021-8 ####[facility]ORYCLIA [id number] [address] STATES [facility] MCH (RBC) [Entitic mass] 29.3 pg Normal 26.0-34.0 [facility] Comment on above: Order Comment: Speci men Type: BLOOD SPECIMENOrdering Facility: [facility] Address: [address] [place] [address] Performed By: #### 5 7021-8 ####[facility]ORYCLIA [id number] [address] [place] MCHC (RBC) [Mass/Vol] 32.3 g/dL Normal 30.5-36.0 [facility] Comment on above: Order Comment: Speci men Type: BLOOD SPECIMENOrdering Facility: [facility] Address: [address] [place] [address] Performed By: #### 5 7021-8 ####[facility]ORYCLIA [id number] [address] [place] MCV (RBC) [Entitic vol] 90.8 fL Normal 80.0-100.0 [facility] Comment on above: Order Comment: Speci men Type: BLOOD SPECIMENOrdering Facility: [facility] Address: [address] [place] [address] Performed By: #### 5 7021-8 ####[facility]ORYCLIA [id number] [address] [place] Monocytes (Bld) [#/Vol] 1.21 10*3/uL High <0.87 [facility] Comment on above: Order Comment: Speci men Type: BLOOD SPECIMENOrdering Facility: [facility] Address: [address] [place] [address] Performed By: #### 5 7021-8 ####[facility]ORYCLIA [id number] [address] Monocytes/100 WBC (Bld) 9.6 % Normal [facility] Comment on above: Order Comment: Speci men Type: BLOOD SPECIMENOrdering Facility: [facility] Address: [address] [place] [address] Performed By: #### 5 7021-8 ####[facility]ORYCLIA [id number] [place] [address] [place] Neutrophils (Bld) [#/Vol] 9.54 10*3/uL High 1.45-7.50 [facility] Comment on above: Order Comment: Speci men Type: BLOOD SPECIMENOrdering Facility: [facility] Address: [address] [place] [address] Performed By: #### 5 7021-8 ####[facility]ORYCLIA [id number] [address] [place] Neutrophils/100 WBC (Bld) 75.4 % Normal [facility] Comment on above: Order Comment: Speci men Type: BLOOD SPECIMENOrdering Facility: [facility] Address: [address] [place] [address] Performed By: #### 5 7021-8 ####[facility]ORYCLIA [id number] [place] [address] [place] Nucleated RBC (Bld) [#/Vol] 0.02 10*3/uL High <0.01 [facility] Comment on above: Order Comment: Speci men Type: BLOOD SPECIMENOrdering Facility: [facility] Address: [address] [place] [address] Performed By: #### 5 7021-8 ####[facility]ORYCLIA [id number] [place] [address] [place] Nucleated RBC/100 WBC (Bld) [Ratio] 0.2 /100 WBC Normal [facility] Comment on above: Order Comment: Speci men Type: BLOOD SPECIMENOrdering Facility: [facility] Address: [address] [place] [address] Performed By: #### 5 7021-8 ####[facility]ORATORYCLIA [id number] [place] [address] [place] Platelet mean volume (Bld) [Entitic vol] 9.2 fL Normal 9.0-12.7 [facility] Comment on above: Order Comment: Speci men Type: BLOOD SPECIMENOrdering Facility: [facility] Address: [address] [place] [address] Performed By: #### 5 7021-8 ####[facility]ORYCLIA [id number] [address] STATES OF [facility] Platelets (Bld) [#/Vol] 202 10*3/uL Normal 150-400 [facility] Comment on above: Order Comment: Speci men Type: BLOOD SPECIMENOrdering Facility: [facility] Address: [address] [place] [address] Performed By: #### 5 7021-8 ####[facility]ORYCLIA [id number] [place] [address] [place] [facility] RBC (Bld) [#/Vol] 2.83 10*6/uL Low 3.90-5.20 [facility] Comment on above: Order Comment: Speci men Type: BLOOD SPECIMENOrdering Facility: [facility] Address: [address] [place] [address] Performed By: #### 5 7021-8 ####[facility]ORYCLIA [id number] [address] [place] WBC (Bld) [#/Vol] 12.66 10*3/uL High 3.70-11.00 [facility] Comment on above: Order Comment: Speci men Type: BLOOD SPECIMENOrdering Facility: [facility] Address: [address] [place] [address] Performed By: #### 5 7021-8 ####[facility]ORYCLIA [id number] [address] CONSULT PROGon 04-19-2025 CONSULT PROG Normal [facility] NURSING PROGon 04-19-2025 NURSING PROG Normal [facility] PT panel Coag (PPP)on 2024 INR Coag (PPP) [Relative time] 1.2 {INR} Normal 0.9-1.3 [facility] Comment on above: Order Comment: Franco newton Type: BLOOD SPECIMENOrdering Facility: [facility] Address: [address] [place] [address] Result Comment: Tequila min K Antagonist (VKA) Therapeutic Range: INR 2 to 3 (Target INR of 2.5)Note: For patients treated with VKA drugs, such as warfarin, the [employer] [employer] 2012 Guideline recommends [...] al. Chest 2012, 141:7S-47SNishimmary RA, et al. [facility] 2017, 70: 252-289 Performed By: #### 3 4528-0 ####[facility]ATORYCLIA [id number] [place] [address] [place] PT Coag (PPP) [Time] 11.6 s Normal 9.7-13.0 [facility] Comment on above: Order Comment: Franco newton Type: BLOOD SPECIMENOrdering Facility: [facility] Address: [address] [place] [id number] Performed By: #### 3 4528-0 ####[facility]ATORYCLIA [id number] [place] [address] [place] [facility] Phosphate [Mass/Vol] 3.2 mg/dL Normal 2.7-4.8 [facility] Comment on above: Order Comment: Franco newton Type: BLOOD SPECIMENOrdering Facility: [facility] Address: [address] [place] [address] Performed By: #### 2 777-, 44703-1 ####[facility]ATORYCLIA [id number] [place] [address] [place] THERAPY NTon 04-19-2025 THERAPY NT Normal [facility] Basic metabolic 2000 panelon 04-18-2025 Anion gap [Moles/Vol] 10 mmol/L Normal 8-15 [facility] Comment on above: Order Comment: Speci men Type: BLOOD SPECIMENOrdering Facility: [facility] Address: [address] [place] [address] Performed By: #### 2 777-1, 28948-1 ####[facility]ATORYCLIA [id number] [place] [address] [place] Calcium [Mass/Vol] 8.0 mg/dL Low 8.5-10.2 [facility] Comment on above: Order Comment: Speci men Type: BLOOD SPECIMENOrdering Facility: [facility] Address: [address] [place] [address] Performed By: #### 2 777-1, 46345-2 ####[facility]ATORYCLIA [id number] [place] [address] [place] Chloride [Moles/Vol] 99 mmol/L Normal 98-107 [facility] Comment on above: Order Comment: Speci men Type: BLOOD SPECIMENOrdering Facility: [facility] Address: [address] [place] [address] Performed By: #### 2 777-1, 16811-6 ####[facility] LABORATORYCLIA [id number] [place] [id number] [place] CO2 [Moles/Vol] 23 mmol/L Normal 22-30 [facility] Comment on above: Order Comment: Speci men Type: BLOOD SPECIMENOrdering Facility: [facility] Address: [address] [place] [address] Performed By: #### 2 777-1, 45366-5 ####[facility] LABORATORYCLIA [id number] [place] [address] [place] Creatinine [Mass/Vol] 0.53 mg/dL Low 0.58-0.96 [facility] Comment on above: Order Comment: Franco newton Type: BLOOD SPECIMENOrdering Facility: [facility] Address: [address] [place] [address] Performed By: #### 2 777-1, 85004-0 ####[facility] LABORATORYCLIA [id number] [place] [id number] [place] eGFRcr SerPlBld CKD-EPI 2020 97 mL/min/1.73m??? Normal >=60 [facility] Comment on above: Order Comment: Franco newton Type: BLOOD SPECIMENOrdering Facility: [facility] Address: [address] [place] [address] Result Comment: Yessica mated Glomerular Filtration Rate [...] actual GFR. Performed By: #### 2 777-1, 93987-7 ####[facility]ATORYCLIA [id number] [place] [address] [place] Glucose [Mass/Vol] 194 mg/dL High 74-99 [facility] Comment on above: Order Comment: Franco aman Type: BLOOD SPECIMENOrdering Facility: [facility] Address: [address] [place] [address] Result Comment: The [place] [employer] (ADA) provides guidance for cutoff [...] Standards of Medical Care in Diabetes 2016, [place] [employer]. Diabetes Care. 2016.39(Suppl 1). Performed By: #### 2 777-1, 79399-8 ####[facility]ORYCLIA [id number] [address] STATES OF [facility] Potassium [Moles/Vol] 4.5 mmol/L Normal 3.7-5.1 [facility] Comment on above: Order Comment: Speci men Type: BLOOD SPECIMENOrdering Facility: [facility] Address: [address] [place] [address] Performed By: #### 2 777-1, 87554-2 ####[facility]ORYCLIA [id number] [address] STATES OF [facility] Sodium [Moles/Vol] 132 mmol/L Low 136-144 [facility] Comment on above: Order Comment: Speci men Type: BLOOD SPECIMENOrdering Facility: [facility] Address: [address] [place] [address] Performed By: #### 2 777-1, 05026-6 ####[facility]ORYCLIA [id number] [address] STATES [facility] Urea nitrogen [Mass/Vol] 18 mg/dL Normal 7-21 [facility] Comment on above: Order Comment: Speci men Type: BLOOD SPECIMENOrdering Facility: [facility] Address: [address] [place] [address] Performed By: #### 2 777-1, 49913-0 ####[facility]ORYCLIA [id number] [address] [place] CBC panel Auto (Bld)on 04-18 Erythrocyte distribution width (RBC) [Ratio] 16.1 % High 11.5-15.0 [facility] Comment on above: Order Comment: Speci men Type: BLOOD SPECIMENOrdering Facility: [facility] Address: [address] [place] [address] Performed By: #### 5 8410-2 ####[facility]ATORYCLIA [id number] [place] [address] [place] Hematocrit (Bld) [Volume fraction] 25.0 % Low 36.0-46.0 [facility] Comment on above: Order Comment: Speci men Type: BLOOD SPECIMENOrdering Facility: [facility] Address: [address] [place] [address] Performed By: #### 5 8410-2 ####[facility]ORYCLIA [id number] [address] STATES OF [facility] Hemoglobin (Bld) [Mass/Vol] 8.4 g/dL Low 11.5-15.5 [facility] Comment on above: Order Comment: Speci men Type: BLOOD SPECIMENOrdering Facility: [facility] Address: [address] [place] [address] Performed By: #### 5 8410-2 ####[facility]ORYCLIA [id number] [address] [place] MCH (RBC) [Entitic mass] 30.0 pg Normal 26.0-34.0 [facility] Comment on above: Order Comment: Speci men Type: BLOOD SPECIMENOrdering Facility: [facility] Address: [address] [place] [address] Performed By: #### 5 8410-2 ####[facility]ORYCLIA [id number] [address] [place] MCHC (RBC) [Mass/Vol] 33.6 g/dL Normal 30.5-36.0 [facility] Comment on above: Order Comment: Speci men Type: BLOOD SPECIMENOrdering Facility: [facility] Address: [address] [place] [address] Performed By: #### 5 8410-2 ####[facility]ORYCLIA [id number] [address] MCV (RBC) [Entitic vol] 89.3 fL Normal 80.0-100.0 [facility] Comment on above: Order Comment: Speci men Type: BLOOD SPECIMENOrdering Facility: [facility] Address: [address] [place] [address] Performed By: #### 5 8410-2 ####[facility]ORYCLIA [id number] [address] [place] Nucleated RBC (Bld) [#/Vol] 0.02 10*3/uL High <0.01 [facility] Comment on above: Order Comment: Speci men Type: BLOOD SPECIMENOrdering Facility: [facility] Address: [address] [place] [address] Performed By: #### 5 8410-2 ####[facility]ORYCLIA [id number] [address] [place] Platelet mean volume (Bld) [Entitic vol] 9.3 fL Normal 9.0-12.7 [facility] Comment on above: Order Comment: Speci men Type: BLOOD SPECIMENOrdering Facility: [facility] Address: [address] [place] [address] Performed By: #### 5 8410-2 ####[facility]ORYCLIA [id number] [address] [place] Platelets (Bld) [#/Vol] 182 10*3/uL Normal 150-400 [facility] Comment on above: Order Comment: Speci men Type: BLOOD SPECIMENOrdering Facility: [facility] Address: [address] [place] [address] Performed By: #### 5 8410-2 ####[facility]ORYCLIA [id number] [address] [place] RBC (Bld) [#/Vol] 2.80 10*6/uL Low 3.90-5.20 [facility] Comment on above: Order Comment: Speci men Type: BLOOD SPECIMENOrdering Facility: [facility] Address: [address] [place] [address] Performed By: #### 5 8410-2 ####[facility]ORYCLIA [id number] [address] [place] WBC (Bld) [#/Vol] 11.75 10*3/uL High 3.70-11.00 [facility] Comment on above: Order Comment: Speci men Type: BLOOD SPECIMENOrdering Facility: [facility] Address: [address] [place] [address] Performed By: #### 5 8410-2 ####[facility]ORYCLIA [id number] [place] [address] [place] Hgb Bld-mCncon 04-18-2025 Hemoglobin (Bld) [Mass/Vol] 8.9 g/dL Low 11.5-15.5 [facility] Comment on above: Order Comment: Speci men Type: BLOOD SPECIMENOrdering Facility: [facility] Address: [address] [place] [address] Performed By: #### 7 18-7 ####[facility]ORYCLIA [id number] [place] [address] [place] Phosphate SerPl-mCncon 04-18 Phosphate [Mass/Vol] 3.3 mg/dL Normal 2.7-4.8 [facility] Comment on above: Order Comment: Speci men Type: BLOOD SPECIMENOrdering Facility: [facility] Address: [address] [place] [address] Performed By: #### 2 777-1, 98130-3 ####[facility]ATORYCLIA [id number] [place] [address] [place] THERAPY NTon 04-18-2025 THERAPY NT Normal [facility] aPTT PPPon 04-18-2025 aPTT Coag (PPP) [Time] 24.6 s Normal 23.0-32.4 [facility] Comment on above: Order Comment: Speci men Type: BLOOD SPECIMENOrdering Facility: [facility] Address: [address] [place] [address] Performed By: #### 1 4979-9 ####[facility]ATORYCLIA [id number] [place] [address] [place] aPTT Coag (PPP) [Time] 53.3 s High 23.0-32.4 [facility] Comment on above: Order Comment: Speci men Type: BLOOD SPECIMENOrdering Facility: [facility] Address: [address] [place] [address] Performed By: #### 1 4979-9 ####[facility]ORYCLIA [id number] [address] [place] aPTT Coag (PPP) [Time] 64.8 s High 23.0-32.4 [facility] Comment on above: Order Comment: Speci men Type: BLOOD SPECIMENOrdering Facility: [facility] Address: [address] [place] [address] Performed By: #### 1 4979-9 ####[facility]ORYCLIA [id number] [place] [address] [place] Basic metabolic 2000 panelon 04-17-2025 Anion gap [Moles/Vol] 7 mmol/L Low 8-15 [facility] Comment on above: Order Comment: Speci men Type: BLOOD SPECIMENOrdering Facility: [facility] Address: [address] [place] [address] Performed By: #### 2 777-1, 85787-2 ####[facility]ATORYCLIA [id number] [place] [address] [place] Calcium [Mass/Vol] 8.5 mg/dL Normal 8.5-10.2 [facility] Comment on above: Order Comment: Speci men Type: BLOOD SPECIMENOrdering Facility: [facility] Address: [address] [place] [address] Performed By: #### 2 777-1, 04070-3 ####[facility]ORYCLIA [id number] [address] [place] Chloride [Moles/Vol] 98 mmol/L Normal 98-107 [facility] Comment on above: Order Comment: Speci men Type: BLOOD SPECIMENOrdering Facility: [facility] Address: [address] [place] [address] Performed By: #### 2 777-1, 18235-4 ####[facility]ORYCLIA [id number] [address] [place] CO2 [Moles/Vol] 24 mmol/L Normal 22-30 [facility] Comment on above: Order Comment: Speci men Type: BLOOD SPECIMENOrdering Facility: [facility] Address: [address] [place] [address] Performed By: #### 2 777-1, 84438-2 ####[facility]ATORYCLIA [id number] [place] [address] [place] Creatinine [Mass/Vol] 0.66 mg/dL Normal 0.58-0.96 [facility] Comment on above: Order Comment: Speci men Type: BLOOD SPECIMENOrdering Facility: [facility] Address: [address] [place] [address] Performed By: #### 2 777-1, 03463-4 ####[facility]ORYCLIA [id number] [address] eGFRcr SerPlBld CKD-EPI 2020 92 mL/min/1.73m??? Normal >=60 [facility] Comment on above: Order Comment: Speci men Type: BLOOD SPECIMENOrdering Facility: [facility] Address: [address] [place] [address] Result Comment: Yessica mated Glomerular Filtration Rate [...] actual GFR. Performed By: #### 2 777-1, 71150-9 ####[facility]ORYCLIA [id number] [place] [address] [place] Glucose [Mass/Vol] 199 mg/dL High 74-99 [facility] Comment on above: Order Comment: Speci men Type: BLOOD SPECIMENOrdering Facility: [facility] Address: [address] [place] [address] Result Comment: The [place] Diabetes [employer] (ADA) provides guidance for cutoff [...] Standards of Medical Care in Diabetes 2016, [place] [employer]. Diabetes Care. 2016.39(Suppl 1). Performed By: #### 2 777-1, 87955-2 ####[facility]ORYCLIA [id number] [place] [address] [place] Potassium [Moles/Vol] 4.6 mmol/L Normal 3.7-5.1 [facility] Comment on above: Order Comment: Speci men Type: BLOOD SPECIMENOrdering Facility: [facility] Address: [address] [place] [address] Performed By: #### 2 777-1, 69464-2 ####[facility]ORYCLIA [id number] [place] [address] [place] Sodium [Moles/Vol] 129 mmol/L Low 136-144 [facility] Comment on above: Order Comment: Franco newton Type: BLOOD SPECIMENOrdering Facility: [facility] Address: [address] [place] [address] Performed By: #### 2 777-1, 95151-2 ####[facility]ORYCLIA [id number] [place] [address] [place] Urea nitrogen [Mass/Vol] 22 mg/dL High 7-21 [facility] Comment on above: Order Comment: Franco men Type: BLOOD SPECIMENOrdering Facility: [facility] Address: [address] [place] [address] Performed By: #### 2 777-1, 49220-7 ####[facility]ORYCLIA [id number] [address] [place] CASE MANAGEMon 04-17-2025 CASE MANAGEM Normal [facility] CBC panel Auto (Bld)on 04-17 Erythrocyte distribution width (RBC) [Ratio] 15.2 % High 11.5-15.0 [facility] Comment on above: Order Comment: Speci men Type: BLOOD SPECIMENOrdering Facility: [facility] Address: [address] [place] [address] Performed By: #### 5 8410-2 ####[facility]ORYCLIA [id number] [address] Hematocrit (Bld) [Volume fraction] 27.4 % Low 36.0-46.0 [facility] Comment on above: Order Comment: Speci men Type: BLOOD SPECIMENOrdering Facility: [facility] Address: [address] [place] [address] Performed By: #### 5 8410-2 ####[facility]ORYCLIA [id number] [address] Hemoglobin (Bld) [Mass/Vol] 9.4 g/dL Low 11.5-15.5 [facility] Comment on above: Order Comment: Speci men Type: BLOOD SPECIMENOrdering Facility: [facility] Address: [address] [place] [address] Performed By: #### 5 8410-2 ####[facility]ORYCLIA [id number] [address] STATES [facility] MCH (RBC) [Entitic mass] 30.0 pg Normal 26.0-34.0 [facility] Comment on above: Order Comment: Speci men Type: BLOOD SPECIMENOrdering Facility: [facility] Address: [address] [place] [address] Performed By: #### 5 8410-2 ####[facility]ORYCLIA [id number] [address] [place] MCHC (RBC) [Mass/Vol] 34.3 g/dL Normal 30.5-36.0 [facility] Comment on above: Order Comment: Speci men Type: BLOOD SPECIMENOrdering Facility: [facility] Address: [address] [place] [address] Performed By: #### 5 8410-2 ####[facility]ORYCLIA [id number] [address] OF [facility] MCV (RBC) [Entitic vol] 87.5 fL Normal 80.0-100.0 [facility] Comment on above: Order Comment: Speci men Type: BLOOD SPECIMENOrdering Facility: [facility] Address: [address] [place] [address] Performed By: #### 5 8410-2 ####[facility]ORYCLIA [id number] [address] Nucleated RBC (Bld) [#/Vol] 10*3/uL Normal <0.01 [facility] Comment on above: Order Comment: Speci men Type: BLOOD SPECIMENOrdering Facility: [facility] Address: [address] [place] [address] Performed By: #### 5 8410-2 ####[facility]ORYCLIA [id number] [address] Platelet mean volume (Bld) [Entitic vol] 9.9 fL Normal 9.0-12.7 [facility] Comment on above: Order Comment: Speci men Type: BLOOD SPECIMENOrdering Facility: [facility] Address: [address] [place] [address] Performed By: #### 5 8410-2 ####[facility]ORYCLIA [id number] [address] Platelets (Bld) [#/Vol] 185 10*3/uL Normal 150-400 [facility] Comment on above: Order Comment: Speci men Type: BLOOD SPECIMENOrdering Facility: [facility] Address: [address] [place] [address] Performed By: #### 5 8410-2 ####[facility]ORYCLIA [id number] [address] RBC (Bld) [#/Vol] 3.13 10*6/uL Low 3.90-5.20 [facility] Comment on above: Order Comment: Speci men Type: BLOOD SPECIMENOrdering Facility: [facility] Address: [address] [place] [address] Performed By: #### 5 8410-2 ####[facility]ORYCLIA [id number] [address] [place] WBC (Bld) [#/Vol] 11.87 10*3/uL High 3.70-11.00 [facility] Comment on above: Order Comment: Speci men Type: BLOOD SPECIMENOrdering Facility: [facility] Address: [address] [place] [address] Performed By: #### 5 8410-2 ####[facility]ORYCLIA [id number] [address] OF [facility] CNCOon 04-17-2025 CNCO Letter Text Normal [facility] Hgb Bld-ncon 04-17-2025 Hemoglobin (Bld) [Mass/Vol] 8.3 g/dL Low 11.5-15.5 [facility] Comment on above: Order Comment: Speci men Type: BLOOD SPECIMENOrdering Facility: [facility] Address: [address] [place] [address] Performed By: #### 7 18-7 ####[facility]ORYCLIA [id number] [address] OF [facility] Phosphate SerPl-mCncon 04-17 Phosphate [Mass/Vol] 2.9 mg/dL Normal 2.7-4.8 [facility] Comment on above: Order Comment: Speci men Type: BLOOD SPECIMENOrdering Facility: [facility] Address: [address] [place] [address] Performed By: #### 2 777-1, 44532-3 ####[facility]ORYCLIA [id number] [address] OF [facility] THERAPY NTon 04-17-2025 THERAPY NT Normal [facility] THERAPY NT Normal [facility] aPTT PPPon 04-17-2025 aPTT Coag (PPP) [Time] s High 23.0-32.4 [facility] Comment on above: Order Comment: Speci men Type: BLOOD SPECIMENOrdering Facility: [facility] Address: [address] [place] [address] Performed By: #### 1 4979-9 ####[facility]ORATORYCLIA [id number] [address] aPTT Coag (PPP) [Time] 49.3 s High 23.0-32.4 [facility] Comment on above: Order Comment: Speci men Type: BLOOD SPECIMENOrdering Facility: [facility] Address: [address] [place] [address] Performed By: #### 1 4979-9 ####[facility]ORYCLIA [id number] [address] aPTT Coag (PPP) [Time] 96.7 s High 23.0-32.4 [facility] Comment on above: Order Comment: Speci men Type: BLOOD SPECIMENOrdering Facility: [facility] Address: [address] [place] [address] Performed By: #### 1 4979-9 ####[facility]ATORYCLIA [id number] [address] aPTT Coag (PPP) [Time] s High 23.0-32.4 [facility] Comment on above: Order Comment: Speci men Type: BLOOD SPECIMENOrdering Facility: [facility] Address: [address] [place] [address] Performed By: #### 1 4979-9 ####[facility]ATORYCLIA [id number] [address] aPTT Coag (PPP) [Time] 30.3 s Normal 23.0-32.4 [facility] Comment on above: Order Comment: Speci men Type: BLOOD SPECIMENOrdering Facility: [facility] Address: [address] [place] [address] Performed By: #### 1 4979-9 ####[facility]ATORYCLIA [id number] [place] [id number] [facility] aPTT Coag (PPP) [Time] 26.6 s Normal 23.0-32.4 [facility] Comment on above: Order Comment: Speci men Type: BLOOD SPECIMENOrdering Facility: [facility] Address: [address] [place] [address] Performed By: #### 1 4979-9 ####[facility]ATORYCLIA [id number] [place] [address] [facility] [place] Basic metabolic 2000 panelon 04-16-2025 Anion gap [Moles/Vol] 10 mmol/L Normal 8-15 [facility] Comment on above: Order Comment: Speci men Type: BLOOD SPECIMENOrdering Facility: [facility] Address: [address] [place] [address] Performed By: #### 2 4321-2, 2777-1, 2-7, 17900-9, 05706-5 ####[facility]ATORYCLIA [id number] [place] [address] [place] Calcium [Mass/Vol] 7.9 mg/dL Low 8.5-10.2 [facility] Comment on above: Order Comment: Speci men Type: BLOOD SPECIMENOrdering Facility: [facility] Address: [address] [place] [address] Performed By: #### 2 4321-2, 2777-1, 4542-7, 74961-7, 58001-7 ####[facility]ATORYCLIA [id number] [place] [id number] [place] Chloride [Moles/Vol] 96 mmol/L Low 98-107 [facility] Comment on above: Order Comment: Speci men Type: BLOOD SPECIMENOrdering Facility: [facility] Address: [address] [place] [address] Performed By: #### 2 4321-2, 2777-1, 4542-7, 70448-1, 33677-9 ####[facility]PITALCLIA [id number] [place] [address] [place] [facility] CO2 [Moles/Vol] 22 mmol/L Normal 22-30 [facility] Comment on above: Order Comment: Speci men Type: BLOOD SPECIMENOrdering Facility: [facility] Address: [address] [place] [address] Performed By: #### 2 4321-2, 2777-1, 4541-7, , 52491-7 ####[facility] HOSPITALCLIA [id number] [place] [address] [place] [facility] Creatinine [Mass/Vol] 0.79 mg/dL Normal 0.58-0.96 [facility] Comment on above: Order Comment: Speci men Type: BLOOD SPECIMENOrdering Facility: [facility] Address: [address] [place] [address] Performed By: #### 2 4321-2, 2777-1, 4541-7, , 83818-9 ####[facility] CENTERIA [id number] [place] [id number] [place] eGFRcr SerPlBld CKD-EPI 2020 79 mL/min/1.73m??? Normal >=60 [facility] Comment on above: Order Comment: Speci men Type: BLOOD SPECIMENOrdering Facility: [facility] Address: [address] [place] [address] Result Comment: Yessica mated Glomerular Filtration Rate [...] Performed By: #### 2 4321-2, 2777-1, 2-7, 03565-4, 15936-2 ####[facility]ATORYCLIA [id number] [place] [address] [place] Glucose [Mass/Vol] 204 mg/dL High 74-99 [facility] Comment on above: Order Comment: Speci men Type: BLOOD SPECIMENOrdering Facility: [facility] Address: [address] [place] [address] Result Comment: The [place] [employer] (ADA) provides guidance for cutoff [...] Standards of Medical Care in Diabetes 2016, [place] [employer]. Diabetes Care. 2016.39(Suppl 1). Performed By: #### 2 4321-2, 2777-1, 4541-7, , 79961-5 ####[facility]ATORYCLIA [id number] [place] [address] [place] Potassium [Moles/Vol] 4.6 mmol/L Normal 3.7-5.1 [facility] Comment on above: Order Comment: Víctori men Type: BLOOD SPECIMENOrdering Facility: [facility] Address: [address] [place] [address] Performed By: #### 2 4321-2, 2777-1, 4541-7, , 51378-2 ####[facility]ATORYCLIA [id number] [place] [address] [place] Sodium [Moles/Vol] 128 mmol/L Low 136-144 [facility] Comment on above: Order Comment: Speci men Type: BLOOD SPECIMENOrdering Facility: [facility] Address: [address] [place] [address] Performed By: #### 2 4321-2, 2777-1, 2-7, , 25656-6 ####[facility]ATORYCLIA [id number] [place] [address] [place] Urea nitrogen [Mass/Vol] 34 mg/dL High 7-21 [facility] Comment on above: Order Comment: Speci men Type: BLOOD SPECIMENOrdering Facility: [facility] Address: [address] [place] [address] Performed By: #### 2 4321-2, 2777-1, 4542-7, 88032-8, 40113-1 ####[facility]ATORYCLIA [id number] [address] STATES OF [facility] CBC panel Auto (Bld)on 04-16 Erythrocyte distribution width (RBC) [Ratio] 14.7 % Normal 11.5-15.0 [facility] Comment on above: Order Comment: Speci men Type: BLOOD SPECIMENOrdering Facility: [facility] Address: [address] [place] [address] Performed By: #### 5 8410-2 ####[facility]ITALCLIA [id number] [address] [place] Hematocrit (Bld) [Volume fraction] 21.1 % Low 36.0-46.0 [facility] Comment on above: Order Comment: Speci men Type: BLOOD SPECIMENOrdering Facility: [facility] Address: [address] [place] [address] Performed By: #### 5 8410-2 ####[facility]ORYCLIA [id number] [address] [place] Hemoglobin (Bld) [Mass/Vol] 7.1 g/dL Low 11.5-15.5 [facility] Comment on above: Order Comment: Speci men Type: BLOOD SPECIMENOrdering Facility: [facility] Address: [address] [place] [address] Performed By: #### 5 8410-2 ####[facility]ORATORYCLIA [id number] [address] [place] MCH (RBC) [Entitic mass] 28.6 pg Normal 26.0-34.0 [facility] Comment on above: Order Comment: Speci men Type: BLOOD SPECIMENOrdering Facility: [facility] Address: [address] [place] [address] Performed By: #### 5 8410-2 ####[facility]ORATORYCLIA [id number] [address] MCHC (RBC) [Mass/Vol] 33.6 g/dL Normal 30.5-36.0 [facility] Comment on above: Order Comment: Speci men Type: BLOOD SPECIMENOrdering Facility: [facility] Address: [address] [place] [address] Performed By: #### 5 8410-2 ####[facility]ORATORYCLIA [id number] [address] [place] MCV (RBC) [Entitic vol] 85.1 fL Normal 80.0-100.0 [facility] Comment on above: Order Comment: Speci men Type: BLOOD SPECIMENOrdering Facility: [facility] Address: [address] [place] [address] Performed By: #### 5 8410-2 ####[facility]ORATORYCLIA [id number] [address] Nucleated RBC (Bld) [#/Vol] 10*3/uL Normal <0.01 [facility] Comment on above: Order Comment: Speci men Type: BLOOD SPECIMENOrdering Facility: [facility] Address: [address] [place] [address] Performed By: #### 5 8410-2 ####[facility]ORATORYCLIA [id number] [address] Platelet mean volume (Bld) [Entitic vol] 10.2 fL Normal 9.0-12.7 [facility] Comment on above: Order Comment: Speci men Type: BLOOD SPECIMENOrdering Facility: [facility] Address: [address] [place] [address] Performed By: #### 5 8410-2 ####[facility]ORATORYCLIA [id number] [address] OF [facility] Platelets (Bld) [#/Vol] 150 10*3/uL Normal 150-400 [facility] Comment on above: Order Comment: Speci men Type: BLOOD SPECIMENOrdering Facility: [facility] Address: [address] [place] [address] Performed By: #### 5 8410-2 ####[facility]ORATORYCLIA [id number] [place] [address] [place] RBC (Bld) [#/Vol] 2.48 10*6/uL Low 3.90-5.20 [facility] Comment on above: Order Comment: Speci men Type: BLOOD SPECIMENOrdering Facility: [facility] Address: [address] [place] [address] Performed By: #### 5 8410-2 ####[facility]ORATORYCLIA [id number] [address] STATES OF [facility] WBC (Bld) [#/Vol] 14.81 10*3/uL High 3.70-11.00 [facility] Comment on above: Order Comment: Speci men Type: BLOOD SPECIMENOrdering Facility: [facility] Address: [address] [place] [address] Performed By: #### 5 8410-2 ####[facility]ORATORYCLIA [id number] [address] [place] Haptoglob SerPl-mCncon 04-16 Haptoglobin [Mass/Vol] 128 mg/dL Normal 31-238 [facility] Comment on above: Order Comment: Speci men Type: BLOOD SPECIMENOrdering Facility: [facility] Address: [address] [place] [address] Performed By: #### 2 4321-2, 2777-1, 4542-7, 61902-2, 35169-4 ####[facility]ORATORYCLIA [id number] [address] [place] Hepatic function 2000 panelo n 04-16-2025 Albumin [Mass/Vol] 2.8 g/dL Low 3.9-4.9 [facility] Comment on above: Order Comment: Speci men Type: BLOOD SPECIMENOrdering Facility: [facility] Address: [address] [place] [address] Performed By: #### 2 4321-2, 2777-1, 4542-7, 14359-0, 63543-5 ####[facility]ORATORYCLIA [id number] [place] [address] [place] ALP [Catalytic activity/Vol] 53 U/L Normal 34-123 [facility] Comment on above: Order Comment: Speci men Type: BLOOD SPECIMENOrdering Facility: [facility] Address: [address] [place] [address] Performed By: #### 2 4321-2, 2777-1, 4541-7, 51557-0, 99292-0 ####[facility]ATORYCLIA [id number] [place] [address] [place] ALT With P-5'-P [Catalytic activity/Vol] U/L Low 7-38 [facility] Comment on above: Order Comment: Speci men Type: BLOOD SPECIMENOrdering Facility: [facility] Address: [address] [place] [address] Performed By: #### 2 4321-2, 2777-1, 4541-7, , 16946-6 ####[facility]ATORYCLIA [id number] [place] [address] [place] AST With P-5'-P [Catalytic activity/Vol] 20 U/L Normal 13-35 [facility] Comment on above: Order Comment: Speci men Type: BLOOD SPECIMENOrdering Facility: [facility] Address: [address] [place] [address] Performed By: #### 2 4321-2, 2777-1, 4542-7, 83847-9, 78013-1 ####[facility]ORATORYCLIA [id number] [place] [address] [place] [facility] Bilirubin [Mass/Vol] 0.5 mg/dL Normal 0.2-1.3 [facility] Comment on above: Order Comment: Speci men Type: BLOOD SPECIMENOrdering Facility: [facility] Address: [address] [place] [address] Performed By: #### 2 4321-2, 2777-1, 4542-7, 35589-3, 57826-2 ####[facility]ORATORYCLIA [id number] [place] [id number] [place] Bilirubin.conjugated [Mass/Vol] 0.2 mg/dL Normal <0.3 [facility] Comment on above: Order Comment: Speci men Type: BLOOD SPECIMENOrdering Facility: [facility] Address: [address] [place] [address] Performed By: #### 2 4321-2, 2777-1, 4542-7, 51372-1, 99541-5 ####[facility]ORATORYCLIA [id number] [place] [address] [place] Protein [Mass/Vol] 5.0 g/dL Low 6.3-8.0 [facility] Comment on above: Order Comment: Speci men Type: BLOOD SPECIMENOrdering Facility: [facility] Address: [address] [place] [address] Performed By: #### 2 4321-2, 2777-1, 4542-7, 60962-2, 73634-5 ####[facility]ATORYCLIA [id number] [place] [id number] [place] Hgb Bld-mCncon 04-16-2025 Hemoglobin (Bld) [Mass/Vol] 9.0 g/dL Low 11.5-15.5 [facility] Comment on above: Order Comment: Speci men Type: BLOOD SPECIMENOrdering Facility: [facility] Address: [address] [place] [address] Performed By: #### 7 18-7 ####[facility]ATORYCLIA [id number] [place] [id number] [place] Hemoglobin (Bld) [Mass/Vol] 6.6 g/dL Low 11.5-15.5 [facility] Comment on above: Order Comment: Speci men Type: BLOOD SPECIMENOrdering Facility: [facility] Address: [address] [place] [address] Performed By: #### 7 18-7 ####[facility]ATORYCLIA [id number] [place] [address] [place] LDH SerPl-cCncon 04-16-2025 LDH [Catalytic activity/Vol] 256 U/L High 135-214 [facility] Comment on above: Order Comment: Speci men Type: BLOOD SPECIMENOrdering Facility: [facility] Address: [address] [place] [address] Performed By: #### 2 532-0 ####[facility]ATORYCLIA [id number] [place] [address] [place] Magnesium SerPl-mCncon 04-16 Magnesium [Mass/Vol] 2.1 mg/dL Normal 1.7-2.3 [facility] Comment on above: Order Comment: Speci men Type: BLOOD SPECIMENOrdering Facility: [facility] Address: [address] [place] [address] Performed By: #### 2 4321-2, 2777-1, 454-7, 54705-1, 20950-7 ####[facility]ATORYCLIA [id number] [place] [address] [place] Phosphate SerPl-mCncon 04-16 Phosphate [Mass/Vol] 3.5 mg/dL Normal 2.7-4.8 [facility] Comment on above: Order Comment: Speci men Type: BLOOD SPECIMENOrdering Facility: [facility] Address: [address] [place] [address] Performed By: #### 2 4321-2, 2777-1, 2-7, 10284-1, 05230-9 ####[facility]ATORYCLIA [id number] [place] [address] [place] THERAPY NTon 04-16-2025 THERAPY NT Normal [facility] TYPE + SCREENon 04-16-2025 ABO O Normal [facility] Comment on above: Order Comment: Speci men Type: BLOOD SPECIMENOrdering Facility: [facility] Address: [address] [place] [address] Performed By: #### T SCR ####[facility] BANKCLIA [id number] [address] Rh Nom (Bld) Positive Normal [facility] Comment on above: Order Comment: Speci men Type: BLOOD SPECIMENOrdering Facility: [facility] Address: [address] [place] [address] Performed By: #### T SCR ####[facility]LO[facility] BANKCLIA [id number] [address] TYPE AND SCREEN EXPIRATION 04/19/2025 23:59 Normal [facility] Comment on above: Order Comment: Speci men Type: BLOOD SPECIMENOrdering Facility: [facility] Address: [address] [place] [address] Performed By: #### T SCR ####[facility] BANKCLIA [id number] [address] [place] aPTT PPPon 04-16-2025 aPTT Coag (PPP) [Time] 24.8 s Normal 23.0-32.4 [facility] Comment on above: Order Comment: Speci men Type: BLOOD SPECIMENOrdering Facility: [facility] Address: [address] [place] [address] Performed By: #### 1 4979-9 ####[facility]ATORYCLIA [id number] [address] aPTT Coag (PPP) [Time] 66.6 s High 23.0-32.4 [facility] Comment on above: Order Comment: Speci men Type: BLOOD SPECIMENOrdering Facility: [facility] Address: [address] [place] [address] Performed By: #### 1 4979-9 ####[facility]ORATORYCLIA [id number] [place] [address] [place] aPTT Coag (PPP) [Time] s High 23.0-32.4 [facility] Comment on above: Order Comment: Speci men Type: BLOOD SPECIMENOrdering Facility: [facility] Address: [address] [place] [address] Performed By: #### 1 4979-9 ####[facility]ORATORYCLIA [id number] [place] [address] [place] Basic metabolic 2000 panelon 04-15-2025 Anion gap [Moles/Vol] 9 mmol/L Normal 8-15 [facility] Comment on above: Order Comment: Speci men Type: BLOOD SPECIMENOrdering Facility: [facility] Address: [address] [place] [address] Performed By: #### 2 777-1, , 62001-0 ####[facility]ORATORYCLIA [id number] [place] [address] [place] Calcium [Mass/Vol] 7.7 mg/dL Low 8.5-10.2 [facility] Comment on above: Order Comment: Speci men Type: BLOOD SPECIMENOrdering Facility: [facility] Address: [address] [place] [address] Performed By: #### 2 777-1, , ####[facility]ORATORYCLIA [id number] [place] [address] [place] Chloride [Moles/Vol] 103 mmol/L Normal 98-107 [facility] Comment on above: Order Comment: Speci men Type: BLOOD SPECIMENOrdering Facility: [facility] Address: [address] [place] [address] Performed By: #### 2 777-1, , ####[facility]ORATORYCLIA [id number] [place] [address] [place] CO2 [Moles/Vol] 22 mmol/L Normal 22-30 [facility] Comment on above: Order Comment: Speci men Type: BLOOD SPECIMENOrdering Facility: [facility] Address: [address] [place] [address] Performed By: #### 2 777-1, , ####[facility] CENTERIA [id number] [place] [id number] [place] [facility] Creatinine [Mass/Vol] 0.86 mg/dL Normal 0.58-0.96 [facility] Comment on above: Order Comment: Speci men Type: BLOOD SPECIMENOrdering Facility: [facility] Address: [address] [place] [address] Performed By: #### 2 777-1, , ####[facility] CENTERIA [id number] [address] [place] eGFRcr SerPlBld CKD-EPI 2020 71 mL/min/1.73m??? Normal >=60 [facility] Comment on above: Order Comment: Speci men Type: BLOOD SPECIMENOrdering Facility: [facility] Address: [address] [place] [address] Result Comment: Yessica mated Glomerular Filtration Rate [...] GFR. Performed By: #### 2 777-1, , ####[facility]ORATORYIA [id number] [place] [id number] [place] Glucose [Mass/Vol] 158 mg/dL High 74-99 [facility] Comment on above: Order Comment: Speci men Type: BLOOD SPECIMENOrdering Facility: [facility] Address: [address] [place] [address] Result Comment: The [place] [employer] (ADA) provides guidance for cutoff [...] Standards of Medical Care in Diabetes 2016, [place] [employer]. Diabetes Care. 2016.39(Suppl 1). Performed By: #### 2 777-1, , ####[facility]ATORYCLIA [id number] [place] [address] [place] Potassium [Moles/Vol] 4.6 mmol/L Normal 3.7-5.1 [facility] Comment on above: Order Comment: Franco newton Type: BLOOD SPECIMENOrdering Facility: [facility] Address: [address] [place] [address] Performed By: #### 2 777-1, , ####[facility]ATORYCLIA [id number] [place] [address] [place] Sodium [Moles/Vol] 134 mmol/L Low 136-144 [facility] Comment on above: Order Comment: Franco newton Type: BLOOD SPECIMENOrdering Facility: [facility] Address: [address] [place] [address] Performed By: #### 2 777-1, , ####[facility]ATORYCLIA [id number] [place] [address] [place] Urea nitrogen [Mass/Vol] 31 mg/dL High 7-21 [facility] Comment on above: Order Comment: Franco newton Type: BLOOD SPECIMENOrdering Facility: [facility] Address: [address] [place] [address] Performed By: #### 2 777-1, , 36278-0 ####[facility]ORATORYCLIA [id number] [place] [address] [place] CBC panel Auto (Bld)on 04-15 Erythrocyte distribution width (RBC) [Ratio] 14.6 % Normal 11.5-15.0 [facility] Comment on above: Order Comment: Speci men Type: BLOOD SPECIMENOrdering Facility: [facility] Address: [address] [place] [address] Performed By: #### 5 8410-2 ####[facility]ORATORYCLIA [id number] [address] OF [facility] Hematocrit (Bld) [Volume fraction] 23.4 % Low 36.0-46.0 [facility] Comment on above: Order Comment: Speci men Type: BLOOD SPECIMENOrdering Facility: [facility] Address: [address] [place] [address] Performed By: #### 5 8410-2 ####[facility]ORATORYCLIA [id number] [address] OF [facility] Hemoglobin (Bld) [Mass/Vol] 8.0 g/dL Low 11.5-15.5 [facility] Comment on above: Order Comment: Speci men Type: BLOOD SPECIMENOrdering Facility: [facility] Address: [address] [place] [address] Performed By: #### 5 8410-2 ####[facility]ORATORYCLIA [id number] [address] [place] MCH (RBC) [Entitic mass] 29.2 pg Normal 26.0-34.0 [facility] Comment on above: Order Comment: Speci men Type: BLOOD SPECIMENOrdering Facility: [facility] Address: [address] [place] [address] Performed By: #### 5 8410-2 ####[facility]ATORYCLIA [id number] [address] [place] MCHC (RBC) [Mass/Vol] 34.2 g/dL Normal 30.5-36.0 [facility] Comment on above: Order Comment: Speci men Type: BLOOD SPECIMENOrdering Facility: [facility] Address: [address] [place] [address] Performed By: #### 5 8410-2 ####[facility]ORATORYCLIA [id number] [address] MCV (RBC) [Entitic vol] 85.4 fL Normal 80.0-100.0 [facility] Comment on above: Order Comment: Speci men Type: BLOOD SPECIMENOrdering Facility: [facility] Address: [address] [place] [address] Performed By: #### 5 8410-2 ####[facility]ORATORYCLIA [id number] [address] OF [facility] Nucleated RBC (Bld) [#/Vol] 10*3/uL Normal <0.01 [facility] Comment on above: Order Comment: Speci men Type: BLOOD SPECIMENOrdering Facility: [facility] Address: [address] [place] [address] Performed By: #### 5 8410-2 ####[facility]ATORYCLIA [id number] [address] Platelet mean volume (Bld) [Entitic vol] 10.0 fL Normal 9.0-12.7 [facility] Comment on above: Order Comment: Speci men Type: BLOOD SPECIMENOrdering Facility: [facility] Address: [address] [place] [address] Performed By: #### 5 8410-2 ####[facility]ATORYCLIA [id number] [address] Platelets (Bld) [#/Vol] 160 10*3/uL Normal 150-400 [facility] Comment on above: Order Comment: Speci men Type: BLOOD SPECIMENOrdering Facility: [facility] Address: [address] [place] [address] Performed By: #### 5 8410-2 ####[facility]ATORYCLIA [id number] [address] [place] RBC (Bld) [#/Vol] 2.74 10*6/uL Low 3.90-5.20 [facility] Comment on above: Order Comment: Speci men Type: BLOOD SPECIMENOrdering Facility: [facility] Address: [address] [place] [address] Performed By: #### 5 8410-2 ####[facility]ORATORYCLIA [id number] [address] [place] WBC (Bld) [#/Vol] 15.46 10*3/uL High 3.70-11.00 [facility] Comment on above: Order Comment: Speci men Type: BLOOD SPECIMENOrdering Facility: [facility] Address: [address] [place] [address] Performed By: #### 5 8410-2 ####[facility]ATORYCLIA [id number] [address] [place] Hgb Bld-ncon 04-15-2025 Hemoglobin (Bld) [Mass/Vol] 7.6 g/dL Low 11.5-15.5 [facility] Comment on above: Order Comment: Speci men Type: BLOOD SPECIMENOrdering Facility: [facility] Address: [address] [place] [address] Performed By: #### 7 18-7 ####[facility]ATORYCLIA [id number] [address] [place] Hemoglobin (Bld) [Mass/Vol] 8.3 g/dL Low 11.5-15.5 [facility] Comment on above: Order Comment: Speci men Type: BLOOD SPECIMENOrdering Facility: [facility] Address: [address] [place] [address] Performed By: #### 7 18-7 ####[facility]ORATORYCLIA [id number] [place] [address] [place] Magnesium SerPl-ncon 04-15 Magnesium [Mass/Vol] 2.0 mg/dL Normal 1.7-2.3 [facility] Comment on above: Order Comment: Speci men Type: BLOOD SPECIMENOrdering Facility: [facility] Address: [address] [place] [address] Performed By: #### 2 777-1, 82510-7, 49799-6 ####[facility]ORATORYCLIA [id number] [place] [id number] [place] NUTRITIONon 04-15-2025 NUTRITION Normal [facility] PT panel Coag (PPP)on 2024 INR Coag (PPP) [Relative time] 1.0 {INR} Normal 0.9-1.3 [facility] Comment on above: Order Comment: Speci men Type: BLOOD SPECIMENOrdering Facility: [facility] Address: [address] [place] [address] Result Comment: Tequila min K Antagonist (VKA) Therapeutic Range: INR 2 to 3 (Target INR of 2.5)Note: For patients treated with VKA drugs, such as warfarin, the [place] [employer] 2012 Guideline recommends [...] al. Chest 2012, 141:7S-47SNishimura RA, et al. [facility] 2017, 70: 252-289 Performed By: #### 1 4979-9, 11932-0 ####[facility]ORATORYCLIA [id number] [place] [address] [place] PT Coag (PPP) [Time] 10.6 s Normal 9.7-13.0 [facility] Comment on above: Order Comment: Speci men Type: BLOOD SPECIMENOrdering Facility: [facility] Address: [address] [place] [id number] Performed By: #### 1 4979-9, 28167-7 ####[facility]ORATORYCLIA [id number] [address] [place] Phosphate SerPl-mCncon 04-15 Phosphate [Mass/Vol] 4.2 mg/dL Normal 2.7-4.8 [facility] Comment on above: Order Comment: Speci men Type: BLOOD SPECIMENOrdering Facility: [facility] Address: [address] [place] [address] Performed By: #### 2 777-1, 43113-9, 45462-0 ####[facility]ORATORYCLIA [id number] [address] [place] THERAPY NTon 04-15-2025 THERAPY NT Normal [facility] aPTT PPPon 04-15-2025 aPTT Coag (PPP) [Time] 27.8 s Normal 23.0-32.4 [facility] Comment on above: Order Comment: Speci men Type: BLOOD SPECIMENOrdering Facility: [facility] Address: [address] [place], [place] [address] Performed By: #### 1 4979-9 ####[facility]ORATORYCLIA [id number] [address] aPTT Coag (PPP) [Time] 23.4 s Normal 23.0-32.4 [facility] Comment on above: Order Comment: Speci men Type: BLOOD SPECIMENOrdering Facility: [facility] Address: [address] [place] [address] Performed By: #### 1 4979-9, 91144-4 ####[facility] LABORATORYCLIA [id number] [place] [address] [place] ALLIED HEALTHon 04-14-2025 ALLIED HEALTH Normal [facility] Basic metabolic 2000 panelon 04-14-2025 Anion gap [Moles/Vol] 10 mmol/L Normal 8-15 [facility] Comment on above: Order Comment: Speci men Type: BLOOD SPECIMENOrdering Facility: [facility] Address: [address] [place] [address] Performed By: #### 2 777-1, 97288-4 ####[facility]ORATORYCLIA [id number] [place] [address] [place] Calcium [Mass/Vol] 8.4 mg/dL Low 8.5-10.2 [facility] Comment on above: Order Comment: Speci men Type: BLOOD SPECIMENOrdering Facility: [facility] Address: [address] [place] [address] Performed By: #### 2 777-1, 40036-3 ####[facility]ORATORYCLIA [id number] [place] [address] [place] Chloride [Moles/Vol] 101 mmol/L Normal 98-107 [facility] Comment on above: Order Comment: Speci men Type: BLOOD SPECIMENOrdering Facility: [facility] Address: [address] [place] [address] Performed By: #### 2 777-1, 48801-5 ####[facility]ORATORYCLIA [id number] [address] [place] CO2 [Moles/Vol] 21 mmol/L Low 22-30 [facility] Comment on above: Order Comment: Speci men Type: BLOOD SPECIMENOrdering Facility: [facility] Address: [address] [place] [address] Performed By: #### 2 777-1, 00478-4 ####[facility]ORATORYCLIA [id number] [place] [address] [place] Creatinine [Mass/Vol] 0.56 mg/dL Low 0.58-0.96 [facility] Comment on above: Order Comment: Speci men Type: BLOOD SPECIMENOrdering Facility: [facility] Address: [address] [place] [address] Performed By: #### 2 777-1, 86372-4 ####[facility]ATORYCLIA [id number] [address] [place] eGFRcr SerPlBld CKD-EPI 2021 96 mL/min/1.73m??? Normal >=60 [facility] Comment on above: Order Comment: Speci men Type: BLOOD SPECIMENOrdering Facility: [facility] Address: [address] [place] [address] Result Comment: Yessica mated Glomerular Filtration Rate [...] actual GFR. Performed By: #### 2 777-1, 78777-1 ####[facility]PITALCLIA [id number] [place] [address] [place] Glucose [Mass/Vol] 216 mg/dL High 74-99 [facility] Comment on above: Order Comment: Franco newton Type: BLOOD SPECIMENOrdering Facility: [facility] Address: [address] [place] [address] Result Comment: The [place] [employer] (ADA) provides guidance for cutoff [...] Standards of Medical Care in Diabetes 2016, [place] [employer]. Diabetes Care. 2016.39(Suppl 1). Performed By: #### 2 777-1, 86904-1 ####[facility]ORATORYCLIA [id number] [place] [address] [place] Potassium [Moles/Vol] 4.9 mmol/L Normal 3.7-5.1 [facility] Comment on above: Order Comment: Franco newton Type: BLOOD SPECIMENOrdering Facility: [facility] Address: [address] [place] [address] Performed By: #### 2 777-1, 50805-2 ####[facility]ORATORYCLIA [id number] [address] [place] Sodium [Moles/Vol] 132 mmol/L Low 136-144 [facility] Comment on above: Order Comment: Speci men Type: BLOOD SPECIMENOrdering Facility: [facility] Address: [address] [place] [address] Performed By: #### 2 777-1, 16059-6 ####[facility] LABORATORYCLIA [id number] [address] [place] Urea nitrogen [Mass/Vol] 21 mg/dL Normal 7-21 [facility] Comment on above: Order Comment: Speci men Type: BLOOD SPECIMENOrdering Facility: [facility] Address: [address] [place] [address] Performed By: #### 2 777-1, 06656-5 ####[facility]ORATORYCLIA [id number] [address] STATES OF [facility] CBC panel Auto (Bld)on 04-14 Erythrocyte distribution width (RBC) [Ratio] 14.0 % Normal 11.5-15.0 [facility] Comment on above: Order Comment: Speci men Type: BLOOD SPECIMENOrdering Facility: [facility] Address: [address] [place] [address] Performed By: #### 5 8410-2 ####[facility]ORATORYCLIA [id number] [address] [place] Hematocrit (Bld) [Volume fraction] 33.2 % Low 36.0-46.0 [facility] Comment on above: Order Comment: Speci men Type: BLOOD SPECIMENOrdering Facility: [facility] Address: [address] [place] [address] Performed By: #### 5 8410-2 ####[facility]ORATORYCLIA [id number] [address] [place] Hemoglobin (Bld) [Mass/Vol] 11.2 g/dL Low 11.5-15.5 [facility] Comment on above: Order Comment: Speci men Type: BLOOD SPECIMENOrdering Facility: [facility] Address: [address] [place] [address] Performed By: #### 5 8410-2 ####[facility]ORATORYCLIA [id number] [address] MCH (RBC) [Entitic mass] 28.8 pg Normal 26.0-34.0 [facility] Comment on above: Order Comment: Speci men Type: BLOOD SPECIMENOrdering Facility: [facility] Address: [address] [place] [address] Performed By: #### 5 8410-2 ####[facility]ATORYCLIA [id number] [address] MCHC (RBC) [Mass/Vol] 33.7 g/dL Normal 30.5-36.0 [facility] Comment on above: Order Comment: Speci men Type: BLOOD SPECIMENOrdering Facility: [facility] Address: [address] [place] [address] Performed By: #### 5 8410-2 ####[facility]ATORYCLIA [id number] [address] MCV (RBC) [Entitic vol] 85.3 fL Normal 80.0-100.0 [facility] Comment on above: Order Comment: Speci men Type: BLOOD SPECIMENOrdering Facility: [facility] Address: [address] [place] [address] Performed By: #### 5 8410-2 ####[facility]ATORYCLIA [id number] [address] Nucleated RBC (Bld) [#/Vol] 10*3/uL Normal <0.01 [facility] Comment on above: Order Comment: Speci men Type: BLOOD SPECIMENOrdering Facility: [facility] Address: [address] [place] [address] Performed By: #### 5 8410-2 ####[facility]ATORYCLIA [id number] [address] Platelet mean volume (Bld) [Entitic vol] 10.6 fL Normal 9.0-12.7 [facility] Comment on above: Order Comment: Speci men Type: BLOOD SPECIMENOrdering Facility: [facility] Address: [address] [place] [address] Performed By: #### 5 8410-2 ####[facility]ATORYCLIA [id number] [place] [address] [place] Platelets (Bld) [#/Vol] 219 10*3/uL Normal 150-400 [facility] Comment on above: Order Comment: Speci men Type: BLOOD SPECIMENOrdering Facility: [facility] Address: [address] [place] [address] Performed By: #### 5 8410-2 ####[facility]ATORYCLIA [id number] [place] [address] [place] RBC (Bld) [#/Vol] 3.89 10*6/uL Low 3.90-5.20 [facility] Comment on above: Order Comment: Speci men Type: BLOOD SPECIMENOrdering Facility: [facility] Address: [address] [place] [address] Performed By: #### 5 8410-2 ####[facility]ATORYCLIA [id number] [place] [address] [place] WBC (Bld) [#/Vol] 20.58 10*3/uL High 3.70-11.00 [facility] Comment on above: Order Comment: Speci men Type: BLOOD SPECIMENOrdering Facility: [facility] Address: [address] [place] [address] Performed By: #### 5 8410-2 ####[facility]ATORYCLIA [id number] [address] OF [facility] CONSULT PROGon 04-14-2025 CONSULT PROG Normal [facility] CT ABD/PEL W IVCONon 025 CT ABD/PEL W IVCON Invalid Interpretation Code [facility] CT COMPLETE LEG W IVCON LTon 04-14-2025 CT COMPLETE LEG W IVCON LT Normal [facility] Gas and Carbon monoxide pane l (BldV)on 04-14-2025 BASE DEFICIT, VENOUS -3 mmol/L Low -2-0 [facility] Comment on above: Order Comment: Speci men Type: VENOUS BLOOD SPECIMENOrdering Facility: [facility] Address: [address] [place] [address] Performed By: #### 2 4344-4 ####[facility]ATORYCLIA [id number] [address] [place] Body temperature 97.34 [degF] Normal [facility] Comment on above: Order Comment: Speci men Type: VENOUS BLOOD SPECIMENOrdering Facility: [facility] Address: [address] [place] [address] Performed By: #### 2 4344-4 ####[facility]ATORYCLIA [id number] [address] [place] Calcium.ionized (BldV) [Mass/Vol] 1.17 mmol/L Normal 1.08-1.30 [facility] Comment on above: Order Comment: Speci men Type: VENOUS BLOOD SPECIMENOrdering Facility: [facility] Address: [address] [place] [address] Performed By: #### 2 4344-4 ####[facility]ATORYCLIA [id number] [address] [place] Calcium.ionized adjusted to pH 7.4 (BldA) [Moles/Vol] 1.11 mmol/L Normal 1.08-1.30 [facility] Comment on above: Order Comment: Speci men Type: VENOUS BLOOD SPECIMENOrdering Facility: [facility] Address: [address] [place] [address] Performed By: #### 2 4344-4 ####[facility]ATORYCLIA [id number] [address] [place] Carboxyhemoglobin (BldV) [Mass fraction] 2.4 % High 0.0-2.0 [facility] Comment on above: Order Comment: Speci men Type: VENOUS BLOOD SPECIMENOrdering Facility: [facility] Address: [address] [place] [address] Result Comment: Carb oxyhemoglobin Reference Range for Smokers: 2.0-8.0% Performed By: #### 2 4344-4 ####[facility]ATORYCLIA [id number] [address] [place] Chloride [Moles/Vol] 100 mmol/L Normal 97-105 [facility] Comment on above: Order Comment: Speci men Type: VENOUS BLOOD SPECIMENOrdering Facility: [facility] Address: [address] [place] [address] Performed By: #### 2 4344-4 ####[facility]ATORYCLIA [id number] [address] [place] CO2 (BldV) [Partial pressure] 47 mm[Hg] Normal 42-55 [facility] Comment on above: Order Comment: Speci men Type: VENOUS BLOOD SPECIMENOrdering Facility: [facility] Address: [address] [place] [address] Performed By: #### 2 4344-4 ####[facility]ORYCLIA [id number] [address] CO2 adjusted to patient's actual temperature (BldV) [Partial pressure] 46 mmHg Normal 42-55 [facility] Comment on above: Order Comment: Speci men Type: VENOUS BLOOD SPECIMENOrdering Facility: [facility] Address: [address] [place] [address] Performed By: #### 2 4344-4 ####[facility]ATORYCLIA [id number] [place] [address] [place] Glucose [Mass/Vol] 282 mg/dL High 60-105 [facility] Comment on above: Order Comment: Speci men Type: VENOUS BLOOD SPECIMENOrdering Facility: [facility] Address: [address] [place] [address] Performed By: #### 2 4344-4 ####[facility]ORATORYCLIA [id number] [place] [address] [place] HCO3 (Bld) [Moles/Vol] 23 mmol/L Low 24-28 [facility] Comment on above: Order Comment: Speci men Type: VENOUS BLOOD SPECIMENOrdering Facility: [facility] Address: [address] [place] [address] Performed By: #### 2 4344-4 ####[facility]ATORYCLIA [id number] [address] [place] Hematocrit (Bld) [Volume fraction] 26.3 % Low 36.0-46.0 [facility] Comment on above: Order Comment: Speci men Type: VENOUS BLOOD SPECIMENOrdering Facility: [facility] Address: [address] [place] [address] Performed By: #### 2 4344-4 ####[facility]ATORYCLIA [id number] [address] [place] Hemoglobin (Bld) [Mass/Vol] 8.5 g/dL Low 11.5-15.5 [facility] Comment on above: Order Comment: Speci men Type: VENOUS BLOOD SPECIMENOrdering Facility: [facility] Address: [address] [place] [address] Performed By: #### 2 4344-4 ####[facility]ATORYCLIA [id number] [address] [place] Lactate [Moles/Vol] 3.5 mmol/L High 0.5-2.2 [facility] Comment on above: Order Comment: Speci men Type: VENOUS BLOOD SPECIMENOrdering Facility: [facility] Address: [address] [place] [address] Performed By: #### 2 4344-4 ####[facility]ATORYCLIA [id number] [address] [place] Methemoglobin (Bld) [Mass fraction] 0.9 % Normal 0.0-1.5 [facility] Comment on above: Order Comment: Speci men Type: VENOUS BLOOD SPECIMENOrdering Facility: [facility] Address: [address] [place] [address] Performed By: #### 2 4344-4 ####[facility]ATORYCLIA [id number] [address] O2 THERAPY NC = Nasal Cannula Normal [facility] Comment on above: Order Comment: Speci men Type: VENOUS BLOOD SPECIMENOrdering Facility: [facility] Address: [address] [place] [address] Performed By: #### 2 4344-4 ####[facility]ATORYCLIA [id number] [address] [place] Oxygen (BldV) [Partial pressure] mm[Hg] Normal 35-45 [facility] Comment on above: Order Comment: Speci men Type: VENOUS BLOOD SPECIMENOrdering Facility: [facility] Address: [address] [place] [address] Performed By: #### 2 4344-4 ####[facility]ATORYCLIA [id number] [address] Oxygen adjusted to patient's actual temperature (BldV) [Partial pressure] <40 Normal 35-45 [facility] Comment on above: Order Comment: Speci men Type: VENOUS BLOOD SPECIMENOrdering Facility: [facility] Address: [address] [place] [address] Performed By: #### 2 4344-4 ####[facility]ATORYCLIA [id number] [address] [place] Oxygen saturation in Venous blood 55 % Low 60-85 [facility] Comment on above: Order Comment: Speci men Type: VENOUS BLOOD SPECIMENOrdering Facility: [facility] Address: [address] [place] [address] Performed By: #### 2 4344-4 ####[facility]ATORYCLIA [id number] [address] [place] Oxyhemoglobin (BldV) [Mass fraction] 53 % Low 60-85 [facility] Comment on above: Order Comment: Speci men Type: VENOUS BLOOD SPECIMENOrdering Facility: [facility] Address: [address] [place] [address] Performed By: #### 2 4344-4 ####[facility]ATORYCLIA [id number] [address] [place] pH (BldV) 7.30 [pH] Low 7.32-7.42 [facility] Comment on above: Order Comment: Speci men Type: VENOUS BLOOD SPECIMENOrdering Facility: [facility] Address: [address] [place] [address] Performed By: #### 2 4344-4 ####[facility]ATORYCLIA [id number] [address] pH adjusted to patient's actual temperature (BldV) 7.31 Low 7.32-7.42 [facility] Comment on above: Order Comment: Speci men Type: VENOUS BLOOD SPECIMENOrdering Facility: [facility] Address: [address] [place] [address] Performed By: #### 2 4344-4 ####[facility]ATORYCLIA [id number] [address] [place] Potassium [Moles/Vol] 4.6 mmol/L Normal 3.5-5.0 [facility] Comment on above: Order Comment: Speci men Type: VENOUS BLOOD SPECIMENOrdering Facility: [facility] Address: [address] [place] [address] Performed By: #### 2 4344-4 ####[facility]ATORYCLIA [id number] [address] [place] Sodium [Moles/Vol] 132 mmol/L Low 136-144 [facility] Comment on above: Order Comment: Speci men Type: VENOUS BLOOD SPECIMENOrdering Facility: [facility] Address: [address] [place] [address] Performed By: #### 2 4344-4 ####[facility]ATORYCLIA [id number] [address] [place] Hematocrit Auto (Bld) [Volum e fraction]on 04-14-2025 Hematocrit (Bld) [Volume fraction] 21.7 % Low 36.0-46.0 [facility] Comment on above: Order Comment: Speci men Type: BLOOD SPECIMENOrdering Facility: [facility] Address: [address] [place] [address] Performed By: #### 4 544-3, 718-7 ####[facility]ORATORYCLIA [id number] [place] [address] [place] Hematocrit (Bld) [Volume fraction] 28.4 % Low 36.0-46.0 [facility] Comment on above: Order Comment: Speci men Type: BLOOD SPECIMENOrdering Facility: [facility] Address: [address] [place] [address] Performed By: #### 7 18-7, 4544-3 ####[facility]ATORYCLIA [id number] [place] [address] [place] [facility]-2025 Hemoglobin (Bld) [Mass/Vol] 9.2 g/dL Low 11.5-15.5 [facility] Comment on above: Order Comment: Speci men Type: BLOOD SPECIMENOrdering Facility: [facility] Address: [address] [place] [address] Performed By: #### 7 18-7 ####[facility]ATORYCLIA [id number] [place] [address] [place] Hemoglobin (Bld) [Mass/Vol] 10.2 g/dL Low 11.5-15.5 [facility] Comment on above: Order Comment: Speci men Type: BLOOD SPECIMENOrdering Facility: [facility] Address: [address] [place] [address] Performed By: #### 7 18-7 ####[facility]ATORYCLIA [id number] [place] [address] [place] Hemoglobin (Bld) [Mass/Vol] 7.2 g/dL Low 11.5-15.5 [facility] Comment on above: Order Comment: Speci men Type: BLOOD SPECIMENOrdering Facility: [facility] Address: [address] [place] [address] Performed By: #### 4 544-3, 718-7 ####[facility]ORATORYCLIA [id number] [place] [address] [place] Hemoglobin (Bld) [Mass/Vol] 9.4 g/dL Low 11.5-15.5 [facility] Comment on above: Order Comment: Speci men Type: BLOOD SPECIMENOrdering Facility: [facility] Address: [address] [place] [address] Performed By: #### 7 18-7, 4544-3 ####[facility]ATORYCLIA [id number] [place] [address] [place] Lactate (Bld) [Moles/Vol]on 04-14-2025 Lactate [Moles/Vol] 1.2 mmol/L Normal 0.5-2.2 [facility] Comment on above: Order Comment: Speci men Type: BLOOD SPECIMENOrdering Facility: [facility] Address: [address] [place] [address] Performed By: #### 3 2693-4 ####[facility]ATORYCLIA [id number] [place] [address] [place] Phosphate SerPl-mCncon 04-14 Phosphate [Mass/Vol] 3.2 mg/dL Normal 2.7-4.8 [facility] Comment on above: Order Comment: Speci men Type: BLOOD SPECIMENOrdering Facility: [facility] Address: [address] [place] [address] Performed By: #### 2 777-1, 60986-2 ####[facility]ORATORYCLIA [id number] [place] [id number] [place] THERAPY NTon 04-14-2025 THERAPY NT Normal [facility] THERAPY NT Normal [facility] aPTT PPPon 04-14-2025 aPTT Coag (PPP) [Time] 76.4 s High 23.0-32.4 [facility] Comment on above: Order Comment: Speci men Type: BLOOD SPECIMENOrdering Facility: [facility] Address: [address] [place], [place] [address] Performed By: #### 1 4979-9 ####[facility]ORATORYCLIA [id number] [place] [address] [place] ANES POSTPROC EVALon 04-13- 025 ANES POSTPROC EVAL Normal [facility] ANES PRE-OPon 04-13-2025 ANES PRE-OP Normal [facility] BRIEF OP NOTon 04-13-2025 BRIEF OP NOT Normal [facility] Basic metabolic 2000 panelon 04-13-2025 Anion gap [Moles/Vol] 6 mmol/L Low 8-15 [facility] Comment on above: Order Comment: Speci men Type: BLOOD SPECIMENOrdering Facility: [facility] Address: [address] [place] [address] Performed By: #### 2 777-1, 40863-5 ####[facility]ATORYCLIA [id number] [place] [address] [place] Calcium [Mass/Vol] 8.7 mg/dL Normal 8.5-10.2 [facility] Comment on above: Order Comment: Speci men Type: BLOOD SPECIMENOrdering Facility: [facility] Address: [address] [place] [address] Performed By: #### 2 777-1, 38905-5 ####[facility]ATORYCLIA [id number] [place] [address] [place] Chloride [Moles/Vol] 103 mmol/L Normal 98-107 [facility] Comment on above: Order Comment: Speci men Type: BLOOD SPECIMENOrdering Facility: [facility] Address: [address] [place] [address] Performed By: #### 2 777-1, 38333-2 ####[facility]ORATORYCLIA [id number] [place] [address] [place] CO2 [Moles/Vol] 25 mmol/L Normal 22-30 [facility] Comment on above: Order Comment: Speci men Type: BLOOD SPECIMENOrdering Facility: [facility] Address: [address] [place] [address] Performed By: #### 2 777-1, 69214-1 ####[facility]ATORYCLIA [id number] [place] [id number] [facility] Creatinine [Mass/Vol] 0.64 mg/dL Normal 0.58-0.96 [facility] Comment on above: Order Comment: Speci men Type: BLOOD SPECIMENOrdering Facility: [facility] Address: [address] [place] [address] Performed By: #### 2 777-1, 68252-2 ####[facility]ATORYCLIA [id number] [place] [id number] [facility] eGFRcr SerPlBld CKD-EPI 2020 93 mL/min/1.73m??? Normal >=60 [facility] Comment on above: Order Comment: Speci men Type: BLOOD SPECIMENOrdering Facility: [facility] Address: [address] [place] [address] Result Comment: Yessica mated Glomerular Filtration Rate [...] actual GFR. Performed By: #### 2 777-1, 81976-5 ####[facility]ATORYCLIA [id number] [place] [id number] [place] Glucose [Mass/Vol] 90 mg/dL Normal 74-99 [facility] Comment on above: Order Comment: Speci men Type: BLOOD SPECIMENOrdering Facility: [facility] Address: [address] [place] [address] Result Comment: The [place] [employer] (ADA) provides guidance for cutoff [...] Standards of Medical Care in Diabetes 2016, [place] [employer]. Diabetes Care. 2016.39(Suppl 1). Performed By: #### 2 777-1, 03571-3 ####[facility]ATORYCLIA [id number] [place] [address] [place] Potassium [Moles/Vol] 4.6 mmol/L Normal 3.7-5.1 [facility] Comment on above: Order Comment: Franco newton Type: BLOOD SPECIMENOrdering Facility: [facility] Address: [address] [place] [address] Performed By: #### 2 777-1, 33823-9 ####[facility]PITALCLIA [id number] [address] STATES OF [facility] Sodium [Moles/Vol] 134 mmol/L Low 136-144 [facility] Comment on above: Order Comment: Franco newton Type: BLOOD SPECIMENOrdering Facility: [facility] Address: [address] [place] [address] Performed By: #### 2 777-1, 42792-5 ####[facility]ATORYCLIA [id number] [address] [place] Urea nitrogen [Mass/Vol] 22 mg/dL High 7-21 [facility] Comment on above: Order Comment: Víctori aman Type: BLOOD SPECIMENOrdering Facility: [facility] Address: [address] [place] [address] Performed By: #### 2 777-1, 81646-1 ####[facility]ATORYCLIA [id number] [address] [place] CASE MANAGEMon 04-13-2025 CASE MANAGEM Normal [facility] CASE MANAGEM Normal [facility] CBC panel Auto (Bld)on 04-13 Erythrocyte distribution width (RBC) [Ratio] 14.0 % Normal 11.5-15.0 [facility] Comment on above: Order Comment: Speci men Type: BLOOD SPECIMENOrdering Facility: [facility] Address: [address] [place] [address] Performed By: #### 5 8410-2 ####[facility]ATORYCLIA [id number] [address] Hematocrit (Bld) [Volume fraction] 41.9 % Normal 36.0-46.0 [facility] Comment on above: Order Comment: Speci men Type: BLOOD SPECIMENOrdering Facility: [facility] Address: [address] [place] [address] Performed By: #### 5 8410-2 ####[facility]ORYCLIA [id number] [address] [place] Hemoglobin (Bld) [Mass/Vol] 13.9 g/dL Normal 11.5-15.5 [facility] Comment on above: Order Comment: Speci men Type: BLOOD SPECIMENOrdering Facility: [facility] Address: [address] [place] [address] Performed By: #### 5 8410-2 ####[facility]ORYCLIA [id number] [address] [place] MCH (RBC) [Entitic mass] 28.3 pg Normal 26.0-34.0 [facility] Comment on above: Order Comment: Speci men Type: BLOOD SPECIMENOrdering Facility: [facility] Address: [address] [place] [address] Performed By: #### 5 8410-2 ####[facility]ATORYCLIA [id number] [address] [place] MCHC (RBC) [Mass/Vol] 33.2 g/dL Normal 30.5-36.0 [facility] Comment on above: Order Comment: Speci men Type: BLOOD SPECIMENOrdering Facility: [facility] Address: [address] [place] [address] Performed By: #### 5 8410-2 ####[facility]ATORYCLIA [id number] [address] STATES OF [facility] MCV (RBC) [Entitic vol] 85.2 fL Normal 80.0-100.0 [facility] Comment on above: Order Comment: Speci men Type: BLOOD SPECIMENOrdering Facility: [facility] Address: [address] [place] [address] Performed By: #### 5 8410-2 ####[facility]ATORYCLIA [id number] [address] [place] Nucleated RBC (Bld) [#/Vol] 10*3/uL Normal <0.01 [facility] Comment on above: Order Comment: Speci men Type: BLOOD SPECIMENOrdering Facility: [facility] Address: [address] [place] [address] Performed By: #### 5 8410-2 ####[facility]ATORYCLIA [id number] [address] Platelet mean volume (Bld) [Entitic vol] 9.6 fL Normal 9.0-12.7 [facility] Comment on above: Order Comment: Speci men Type: BLOOD SPECIMENOrdering Facility: [facility] Address: [address] [place] [address] Performed By: #### 5 8410-2 ####[facility]ATORYCLIA [id number] [address] Platelets (Bld) [#/Vol] 205 10*3/uL Normal 150-400 [facility] Comment on above: Order Comment: Speci men Type: BLOOD SPECIMENOrdering Facility: [facility] Address: [address] [place] [address] Performed By: #### 5 8410-2 ####[facility]ATORYCLIA [id number] [address] [place] RBC (Bld) [#/Vol] 4.92 10*6/uL Normal 3.90-5.20 [facility] Comment on above: Order Comment: Speci men Type: BLOOD SPECIMENOrdering Facility: [facility] Address: [address] [place] [address] Performed By: #### 5 8410-2 ####[facility]ATORYCLIA [id number] [address] [place] WBC (Bld) [#/Vol] 20.10 10*3/uL High 3.70-11.00 [facility] Comment on above: Order Comment: Speci men Type: BLOOD SPECIMENOrdering Facility: [facility] Address: [address] [place] [address] Performed By: #### 5 8410-2 ####[facility]ATORYCLIA [id number] [address] CONFIRM BLOOD TYPEon 025 ABO O Normal [facility] Comment on above: Order Comment: Speci men Type: BLOOD SPECIMENOrdering Facility: [facility] Address: [address] [place] [address] Performed By: #### C ONABO ####[facility] BANKCLIA [id number] [address] Rh Nom (Bld) Positive Normal [facility] Comment on above: Order Comment: Speci men Type: BLOOD SPECIMENOrdering Facility: [facility] Address: [address] [place] [address] Performed By: #### C ONABO ####[facility] BANKCLIA [id number] [address] OPERATIVE NOon 04-13-2025 OPERATIVE NO Normal [facility] PT panel Coag (PPP)on 2024 INR Coag (PPP) [Relative time] 1.1 {INR} Normal 0.9-1.3 [facility] Comment on above: Order Comment: Speci men Type: BLOOD SPECIMENOrdering Facility: [facility] Address: [address] [place] [address] Result Comment: Tequila min K Antagonist (VKA) Therapeutic Range: INR 2 to 3 (Target INR of 2.5)Note: For patients treated with VKA drugs, such as warfarin, the [employer] 2012 Guideline recommends [...] al. Chest 2012, 141:7S-47SNishimura RA, et al. [facility] 2017, 70: 252-289 Performed By: #### 3 4528-0, 28959-4 ####[facility] LABORATORYCLIA [id number] [place] [address] [place] PT Coag (PPP) [Time] 10.9 s Normal 9.7-13.0 [facility] Comment on above: Order Comment: Speci men Type: BLOOD SPECIMENOrdering Facility: [facility] Address: [address] [place] [address] Performed By: #### 3 4528-0, 55450-6 ####[facility] LABORATORYCLIA [id number] [place] [address] [place] Phosphate SerPl-mCncon 04-13 Phosphate [Mass/Vol] 3.0 mg/dL Normal 2.7-4.8 [facility] Comment on above: Order Comment: Speci men Type: BLOOD SPECIMENOrdering Facility: [facility] Address: [address] [place] [address] Performed By: #### 2 777-1, 49705-0 ####[facility] LABORATORYCLIA [id number] [place] [address] [place] XR HIP 2V AP/ LAT LTon 04-13 XR HIP 2V AP/ LAT LT Normal [facility] aPTT PPPon 10-30-2025 aPTT Coag (PPP) [Time] s High 23.0-32.4 [facility] Comment on above: Order Comment: Speci men Type: BLOOD SPECIMENOrdering Facility: [facility] Address: [address] [place] [address] Performed By: #### 1 4979-9 ####[facility]ORATORYCLIA [id number] [address] aPTT Coag (PPP) [Time] 26.4 s Normal 23.0-32.4 [facility] Comment on above: Order Comment: Speci men Type: BLOOD SPECIMENOrdering Facility: [facility] Address: [address] [place] [address] Performed By: #### 3 4528-0, 38072-9 ####[facility]ORATORYCLIA [id number] [address] aPTT Coag (PPP) [Time] 55.6 s High 23.0-32.4 [facility] Comment on above: Order Comment: Speci men Type: BLOOD SPECIMENOrdering Facility: [facility] Address: [address] [place] [address] Performed By: #### 1 4979-9 ####[facility]ORATORYCLIA [id number] [address] aPTT Coag (PPP) [Time] 48.0 s High 23.0-32.4 [facility] Comment on above: Order Comment: Speci men Type: BLOOD SPECIMENOrdering Facility: [facility] Address: [address] [place] [address] Performed By: #### 1 4979-9 ####[facility]ORATORYCLIA [id number] [address] ALLIED HEALTHon 04-12-2025 ALLIED HEALTH Normal [facility] ALLIED HEALTH Normal [facility] Basic metabolic 2000 panelon 04-12-2025 Anion gap [Moles/Vol] 7 mmol/L Low 8-15 [facility] Comment on above: Order Comment: Speci men Type: BLOOD SPECIMENOrdering Facility: [facility] Address: [address] [place] [address] Performed By: #### 2 777-1, 07456-6 ####[facility]ORATORYCLIA [id number] [place] [address] [place] Calcium [Mass/Vol] 8.7 mg/dL Normal 8.5-10.2 [facility] Comment on above: Order Comment: Speci men Type: BLOOD SPECIMENOrdering Facility: [facility] Address: [address] [place] [address] Performed By: #### 2 777-1, 68691-3 ####[facility]ORATORYCLIA [id number] [place] [address] [place] Chloride [Moles/Vol] 106 mmol/L Normal 98-107 [facility] Comment on above: Order Comment: Speci men Type: BLOOD SPECIMENOrdering Facility: [facility] Address: [address] [place] [address] Performed By: #### 2 777-1, 06294-4 ####[facility]ORATORYCLIA [id number] [place] [address] [place] CO2 [Moles/Vol] 25 mmol/L Normal 22-30 [facility] Comment on above: Order Comment: Speci men Type: BLOOD SPECIMENOrdering Facility: [facility] Address: [address] [place] [address] Performed By: #### 2 777-1, 07458-3 ####[facility]ORATORYCLIA [id number] [place] [address] [place] Creatinine [Mass/Vol] 0.58 mg/dL Normal 0.58-0.96 [facility] Comment on above: Order Comment: Speci men Type: BLOOD SPECIMENOrdering Facility: [facility] Address: [address] [place] [address] Performed By: #### 2 777-1, 93842-2 ####[facility]ORATORYCLIA [id number] [place] [address] [place] eGFRcr SerPlBld CKD-EPI 2020 95 mL/min/1.73m??? Normal >=60 [facility] Comment on above: Order Comment: Franco newton Type: BLOOD SPECIMENOrdering Facility: [facility] Address: [address] [place] [address] Result Comment: Yessica mated Glomerular Filtration Rate [...] actual GFR. Performed By: #### 2 777-1, 92622-6 ####[facility]ATORYCLIA [id number] [place] [address] [place] Glucose [Mass/Vol] 162 mg/dL High 74-99 [facility] Comment on above: Order Comment: Franco newton Type: BLOOD SPECIMENOrdering Facility: [facility] Address: [address] [place] [address] Result Comment: The [place] [employer] (ADA) provides guidance for cutoff [...] Standards of Medical Care in Diabetes 2016, [place] [employer]. Diabetes Care. 2016.39(Suppl 1). Performed By: #### 2 777-1, 01891-3 ####[facility]ORATORYCLIA [id number] [place] [id number] [place] Potassium [Moles/Vol] 4.1 mmol/L Normal 3.7-5.1 [facility] Comment on above: Order Comment: Speci men Type: BLOOD SPECIMENOrdering Facility: [facility] Address: [address] [place] [address] Performed By: #### 2 777-1, 76043-8 ####[facility]ORATORYCLIA [id number] [address] STATES [facility] Sodium [Moles/Vol] 138 mmol/L Normal 136-144 [facility] Comment on above: Order Comment: Speci men Type: BLOOD SPECIMENOrdering Facility: [facility] Address: [address] [place] [address] Performed By: #### 2 777-1, 51119-8 ####[facility]ORATORYCLIA [id number] [address] STATES OF [facility] Urea nitrogen [Mass/Vol] 18 mg/dL Normal 7-21 [facility] Comment on above: Order Comment: Speci men Type: BLOOD SPECIMENOrdering Facility: [facility] Address: [address] [place] [address] Performed By: #### 2 777-1, 36787-4 ####[facility]ORATORYCLIA [id number] [address] [place] CASE MANAGEMon 04-12-2025 CASE MANAGEM Normal [facility] CBC panel Auto (Bld)on 04-12 Erythrocyte distribution width (RBC) [Ratio] 13.7 % Normal 11.5-15.0 [facility] Comment on above: Order Comment: Speci men Type: BLOOD SPECIMENOrdering Facility: [facility] Address: [address] [place] [address] Performed By: #### 5 8410-2 ####[facility]ORATORYCLIA [id number] [address] Hematocrit (Bld) [Volume fraction] 39.4 % Normal 36.0-46.0 [facility] Comment on above: Order Comment: Speci men Type: BLOOD SPECIMENOrdering Facility: [facility] Address: [address] [place] [address] Performed By: #### 5 8410-2 ####[facility]ATORYCLIA [id number] [address] Hemoglobin (Bld) [Mass/Vol] 13.3 g/dL Normal 11.5-15.5 [facility] Comment on above: Order Comment: Speci men Type: BLOOD SPECIMENOrdering Facility: [facility] Address: [address] [place] [address] Performed By: #### 5 8410-2 ####[facility]ORATORYCLIA [id number] [address] STATES OF [facility] MCH (RBC) [Entitic mass] 28.4 pg Normal 26.0-34.0 [facility] Comment on above: Order Comment: Speci men Type: BLOOD SPECIMENOrdering Facility: [facility] Address: [address] [place] [address] Performed By: #### 5 8410-2 ####[facility]ORATORYCLIA [id number] [address] MCHC (RBC) [Mass/Vol] 33.8 g/dL Normal 30.5-36.0 [facility] Comment on above: Order Comment: Speci men Type: BLOOD SPECIMENOrdering Facility: [facility] Address: [address] [place] [address] Performed By: #### 5 8410-2 ####[facility]ORATORYCLIA [id number] [address] STATES [facility] MCV (RBC) [Entitic vol] 84.0 fL Normal 80.0-100.0 [facility] Comment on above: Order Comment: Speci men Type: BLOOD SPECIMENOrdering Facility: [facility] Address: [address] [place] [address] Performed By: #### 5 8410-2 ####[facility]ORATORYCLIA [id number] [address] [place] Nucleated RBC (Bld) [#/Vol] 10*3/uL Normal <0.01 [facility] Comment on above: Order Comment: Speci men Type: BLOOD SPECIMENOrdering Facility: [facility] Address: [address] [place] [address] Performed By: #### 5 8410-2 ####[facility]ORATORYCLIA [id number] [place] [address] [place] Platelet mean volume (Bld) [Entitic vol] 9.8 fL Normal 9.0-12.7 [facility] Comment on above: Order Comment: Speci men Type: BLOOD SPECIMENOrdering Facility: [facility] Address: [address] [place] [address] Performed By: #### 5 8410-2 ####[facility]ORATORYCLIA [id number] [place] [address] [place] Platelets (Bld) [#/Vol] 193 10*3/uL Normal 150-400 [facility] Comment on above: Order Comment: Speci men Type: BLOOD SPECIMENOrdering Facility: [facility] Address: [address] [place] [address] Performed By: #### 5 8410-2 ####[facility]ORATORYCLIA [id number] [place] [address] [place] RBC (Bld) [#/Vol] 4.69 10*6/uL Normal 3.90-5.20 [facility] Comment on above: Order Comment: Speci men Type: BLOOD SPECIMENOrdering Facility: [facility] Address: [address] [place] [address] Performed By: #### 5 8410-2 ####[facility]ATORYCLIA [id number] [place] [address] [place] WBC (Bld) [#/Vol] 8.84 10*3/uL Normal 3.70-11.00 [facility] Comment on above: Order Comment: Speci men Type: BLOOD SPECIMENOrdering Facility: [facility] Address: [address] [place] [address] Performed By: #### 5 8410-2 ####[facility]ORATORYCLIA [id number] [address] [place] CONSULT PROGon 04-12-2025 CONSULT PROG Normal [facility] Phosphate SerPl-mCncon 04-12 Phosphate [Mass/Vol] 3.0 mg/dL Normal 2.7-4.8 [facility] Comment on above: Order Comment: Speci men Type: BLOOD SPECIMENOrdering Facility: [facility] Address: [address] [place] [address] Performed By: #### 2 777-1, 18901-5 ####[facility]ATORYCLIA [id number] [address] TYPE + SCREENon 04-12-2025 ABO O Normal [facility] Comment on above: Order Comment: Speci men Type: BLOOD SPECIMENOrdering Facility: [facility] Address: [address] [place] [address] Performed By: #### T SCR ####[facility] BANKCLIA [id number] [address] [place] Rh Nom (Bld) Positive Normal [facility] Comment on above: Order Comment: Speci men Type: BLOOD SPECIMENOrdering Facility: [facility] Address: [address] [place] [address] Performed By: #### T SCR ####[facility]LO[facility] BANKCLIA [id number] [address] [place] TYPE AND SCREEN EXPIRATION 04/15/2025 23:59 Normal [facility] Comment on above: Order Comment: Speci men Type: BLOOD SPECIMENOrdering Facility: [facility] Address: [address] [place] [address] Performed By: #### T SCR ####[facility] BLO[facility] BANKCLIA [id number] [address] [place] aPTT PPPon 04-12-2025 aPTT Coag (PPP) [Time] 52.8 s High 23.0-32.4 [facility] Comment on above: Order Comment: Speci men Type: BLOOD SPECIMENOrdering Facility: [facility] Address: [address] [place] [address] Performed By: #### 1 4979-9 ####[facility]ORATORYCLIA [id number] [address] aPTT Coag (PPP) [Time] 111.1 s High 23.0-32.4 [facility] Comment on above: Order Comment: Speci men Type: BLOOD SPECIMENOrdering Facility: [facility] Address: [address] [place] [address] Performed By: #### 1 4979-9 ####[facility]ORATORYCLIA [id number] [address] STATES OF [facility] aPTT Coag (PPP) [Time] 49.0 s High 23.0-32.4 [facility] Comment on above: Order Comment: Speci men Type: BLOOD SPECIMENOrdering Facility: [facility] Address: [address] [place] [address] Performed By: #### 1 4979-9 ####[facility]ORATORYCLIA [id number] [address] STATES OF [facility] aPTT Coag (PPP) [Time] 57.9 s High 23.0-32.4 [facility] Comment on above: Order Comment: Speci men Type: BLOOD SPECIMENOrdering Facility: [facility] Address: [address] [place] [address] Performed By: #### 1 4979-9 ####[facility]ORATORYCLIA [id number] [address] [place] [id number] 04-11-2025 [id number] Normal [facility] Basic metabolic 2000 panelon 04-11-2025 Anion gap [Moles/Vol] 8 mmol/L Normal 8-15 [facility] Comment on above: Order Comment: Speci men Type: BLOOD SPECIMENOrdering Facility: [facility] Address: [address] [place] [address] Performed By: #### 2 4321-2, 2777-1 ####[facility]ORATORYCLIA [id number] [place] [address] [place] Calcium [Mass/Vol] 8.4 mg/dL Low 8.5-10.2 [facility] Comment on above: Order Comment: Speci men Type: BLOOD SPECIMENOrdering Facility: [facility] Address: [address] [place] [address] Performed By: #### 2 4321-2, 277- ####[facility]ORATORYCLIA [id number] [place] [address] [place] Chloride [Moles/Vol] 101 mmol/L Normal 98-107 [facility] Comment on above: Order Comment: Speci men Type: BLOOD SPECIMENOrdering Facility: [facility] Address: [address] [place] [address] Performed By: #### 2 4321-2, 2776- ####[facility]ORATORYCLIA [id number] [address] [place] CO2 [Moles/Vol] 23 mmol/L Normal 22-30 [facility] Comment on above: Order Comment: Speci men Type: BLOOD SPECIMENOrdering Facility: [facility] Address: [address] [place] [address] Performed By: #### 2 4321-2, 2776-06 ####[facility]ORATORYCLIA [id number] [place] [address] [place] Creatinine [Mass/Vol] 0.62 mg/dL Normal 0.58-0.96 [facility] Comment on above: Order Comment: Speci men Type: BLOOD SPECIMENOrdering Facility: [facility] Address: [address] [place] [address] Performed By: #### 2 4321-2, 277- ####[facility]ORATORYCLIA [id number] [address] [place] eGFRcr SerPlBld CKD-EPI 2021 94 mL/min/1.73m??? Normal >=60 [facility] Comment on above: Order Comment: Speci men Type: BLOOD SPECIMENOrdering Facility: [facility] Address: [address] [place] [address] Result Comment: Yessica mated Glomerular Filtration Rate [...] GFR. Performed By: #### 2 432-2, 2776-06 ####[facility]ORATORYCLIA [id number] [place] [address] [place] Glucose [Mass/Vol] 189 mg/dL High 74-99 [facility] Comment on above: Order Comment: Franco newton Type: BLOOD SPECIMENOrdering Facility: [facility] Address: [address] [place] [address] Result Comment: The [place] [employer] (ADA) provides guidance for cutoff [...] Standards of Medical Care in Diabetes 2016, [place] [employer]. Diabetes Care. 2016.39(Suppl 1). Performed By: #### 2 432-2, 2776-06 ####[facility]ORATORYCLIA [id number] [place] [address] [place] Potassium [Moles/Vol] 4.0 mmol/L Normal 3.7-5.1 [facility] Comment on above: Order Comment: Franco newton Type: BLOOD SPECIMENOrdering Facility: [facility] Address: [address] [place] [address] Performed By: #### 2 432-2, 2776-06 ####[facility] LABORATORYCLIA [id number] [place] [address] [place] [facility] Sodium [Moles/Vol] 132 mmol/L Low 136-144 [facility] Comment on above: Order Comment: Speci men Type: BLOOD SPECIMENOrdering Facility: [facility] Address: [address] [place] [address] Performed By: #### 2 4321-2, 2777-1 ####[facility]ORATORYCLIA [id number] [address] [place] [facility] Urea nitrogen [Mass/Vol] 23 mg/dL High 7-21 [facility] Comment on above: Order Comment: Speci men Type: BLOOD SPECIMENOrdering Facility: [facility] Address: [address] [place] [address] Performed By: #### 2 4321-2, 2777-1 ####[facility]ORATORYCLIA [id number] [address] OF [facility] CASE MANAGEMon 04-11-2025 CASE MANAGEM Normal [facility] CBC panel Auto (Bld)on 04-11 Erythrocyte distribution width (RBC) [Ratio] 13.4 % Normal 11.5-15.0 [facility] Comment on above: Order Comment: Speci men Type: BLOOD SPECIMENOrdering Facility: [facility] Address: [address] [place] [address] Performed By: #### 5 8410-2 ####[facility]ORATORYCLIA [id number] [address] STATES OF [facility] Hematocrit (Bld) [Volume fraction] 39.6 % Normal 36.0-46.0 [facility] Comment on above: Order Comment: Speci men Type: BLOOD SPECIMENOrdering Facility: [facility] Address: [address] [place] [address] Performed By: #### 5 8410-2 ####[facility]ORATORYCLIA [id number] [address] OF [facility] Hemoglobin (Bld) [Mass/Vol] 13.2 g/dL Normal 11.5-15.5 [facility] Comment on above: Order Comment: Speci men Type: BLOOD SPECIMENOrdering Facility: [facility] Address: [address] [place] [address] Performed By: #### 5 8410-2 ####[facility]ORATORYCLIA [id number] [address] [place] [facility] MCH (RBC) [Entitic mass] 28.1 pg Normal 26.0-34.0 [facility] Comment on above: Order Comment: Speci men Type: BLOOD SPECIMENOrdering Facility: [facility] Address: [address] [place] [address] Performed By: #### 5 8410-2 ####[facility]ORATORYCLIA [id number] [address] MCHC (RBC) [Mass/Vol] 33.3 g/dL Normal 30.5-36.0 [facility] Comment on above: Order Comment: Speci men Type: BLOOD SPECIMENOrdering Facility: [facility] Address: [address] [place] [address] Performed By: #### 5 8410-2 ####[facility]ORATORYCLIA [id number] [address] [place] [facility] MCV (RBC) [Entitic vol] 84.4 fL Normal 80.0-100.0 [facility] Comment on above: Order Comment: Speci men Type: BLOOD SPECIMENOrdering Facility: [facility] Address: [address] [place] [address] Performed By: #### 5 8410-2 ####[facility]ORATORYCLIA [id number] [address] Nucleated RBC (Bld) [#/Vol] 10*3/uL Normal <0.01 [facility] Comment on above: Order Comment: Speci men Type: BLOOD SPECIMENOrdering Facility: [facility] Address: [address] [place] [address] Performed By: #### 5 8410-2 ####[facility] LABORATORYCLIA [id number] [place] [address] [place] Platelet mean volume (Bld) [Entitic vol] 9.8 fL Normal 9.0-12.7 [facility] Comment on above: Order Comment: Speci men Type: BLOOD SPECIMENOrdering Facility: [facility] Address: [address] [place] [address] Performed By: #### 5 8410-2 ####[facility] LABORATORYCLIA [id number] [place] [address] [place] Platelets (Bld) [#/Vol] 191 10*3/uL Normal 150-400 [facility] Comment on above: Order Comment: Speci men Type: BLOOD SPECIMENOrdering Facility: [facility] Address: [address] [place] [address] Performed By: #### 5 8410-2 ####[facility]ITALCLIA [id number] [place] [address] [place] RBC (Bld) [#/Vol] 4.69 10*6/uL Normal 3.90-5.20 [facility] Comment on above: Order Comment: Speci men Type: BLOOD SPECIMENOrdering Facility: [facility] Address: [address] [place] [address] Performed By: #### 5 8410-2 ####[facility]ORATORYCLIA [id number] [place] [address] [place] WBC (Bld) [#/Vol] 8.94 10*3/uL Normal 3.70-11.00 [facility] Comment on above: Order Comment: Speci men Type: BLOOD SPECIMENOrdering Facility: [facility] Address: [address] [place] [address] Performed By: #### 5 8410-2 ####[facility]ORATORYCLIA [id number] [address] [place] Phosphate SerPl-mCncon 04-11 Phosphate [Mass/Vol] 3.4 mg/dL Normal 2.7-4.8 [facility] Comment on above: Order Comment: Speci men Type: BLOOD SPECIMENOrdering Facility: [facility] Address: [address] [place] [address] Performed By: #### 2 4321-2, 2777-1 ####[facility] LABORATORYCLIA [id number] [address] [place] XR PELVIS 1V APon 04-11-2025 XR PELVIS 1V AP Normal [facility] aPTT PPPon 04-11-2025 aPTT Coag (PPP) [Time] 99.4 s High 23.0-32.4 [facility] Comment on above: Order Comment: Speci men Type: BLOOD SPECIMENOrdering Facility: [facility] Address: [address] [place] [address] Performed By: #### 1 4979-9 ####[facility] LABORATORYCLIA [id number] [address] [place] [facility] aPTT Coag (PPP) [Time] 51.0 s High 23.0-32.4 [facility] Comment on above: Order Comment: Speci men Type: BLOOD SPECIMENOrdering Facility: [facility] Address: [address] [place] [address] Performed By: #### 1 4979-9 ####[facility] LABORATORYCLIA [id number] [address] STATES OF [facility] aPTT Coag (PPP) [Time] 58.8 s High 23.0-32.4 [facility] Comment on above: Order Comment: Speci men Type: BLOOD SPECIMENOrdering Facility: [facility] Address: [address] [place] [address] Performed By: #### 1 4979-9 ####[facility] LABORATORYCLIA [id number] [address] aPTT Coag (PPP) [Time] 94.8 s High 23.0-32.4 [facility] Comment on above: Order Comment: Speci men Type: BLOOD SPECIMENOrdering Facility: [facility] Address: [address] [place] [address] Performed By: #### 1 4979-9 ####[facility] LABORATORYCLIA [id number] [place] [address] [place] Basic metabolic 2000 panelon 04-10-2025 Anion gap [Moles/Vol] 7 mmol/L Low 8-15 [facility] Comment on above: Order Comment: Speci men Type: BLOOD SPECIMENOrdering Facility: [facility] Address: [address] [place] [address] Performed By: #### 2 4321-2, , 2776-06 ####[facility] LABORATORYCLIA [id number] [place] [address] [place] Calcium [Mass/Vol] 8.8 mg/dL Normal 8.5-10.2 [facility] Comment on above: Order Comment: Speci men Type: BLOOD SPECIMENOrdering Facility: [facility] Address: [address] [place] [address] Performed By: #### 2 4321-2, , 2776-06 ####[facility] LABORATORYCLIA [id number] [place] [address] [place] Chloride [Moles/Vol] 103 mmol/L Normal 98-107 [facility] Comment on above: Order Comment: Speci men Type: BLOOD SPECIMENOrdering Facility: [facility] Address: [address] [place] [address] Performed By: #### 2 4321-2, , 2776-06 ####[facility] LABORATORYCLIA [id number] [place] [address] [place] CO2 [Moles/Vol] 27 mmol/L Normal 22-30 [facility] Comment on above: Order Comment: Speci men Type: BLOOD SPECIMENOrdering Facility: [facility] Address: [address] [place] [address] Performed By: #### 2 4321-2, , 2776- ####[facility] LABORATORYCLIA [id number] [place] [address] [place] Creatinine [Mass/Vol] 0.64 mg/dL Normal 0.58-0.96 [facility] Comment on above: Order Comment: Franco newton Type: BLOOD SPECIMENOrdering Facility: [facility] Address: [address] [place] [address] Performed By: #### 2 4321-2, 78815-9, 2776-06 ####[facility] LABORATORYCLIA [id number] [place] [id number] [facility] [place] eGFRcr SerPlBld CKD-EPI 2020 93 mL/min/1.73m??? Normal >=60 [facility] Comment on above: Order Comment: Franco newton Type: BLOOD SPECIMENOrdering Facility: [facility] Address: [address] [place] [address] Result Comment: Yessica mated Glomerular Filtration Rate [...] Performed By: #### 2 4321-2, , 2776-06 ####[facility]ATORYCLIA [id number] [address] [place] Glucose [Mass/Vol] 140 mg/dL High 74-99 [facility] Comment on above: Order Comment: Franco newton Type: BLOOD SPECIMENOrdering Facility: [facility] Address: [address] [place] [address] Result Comment: The [place] [employer] (ADA) provides guidance for cutoff [...] Standards of Medical Care in Diabetes 2016, [place] [employer]. Diabetes Care. 2016.39(Suppl 1). Performed By: #### 2 4321-2, , 2776-06 ####[facility]ATORYCLIA [id number] [place] [address] [place] Potassium [Moles/Vol] 4.0 mmol/L Normal 3.7-5.1 [facility] Comment on above: Order Comment: Speci men Type: BLOOD SPECIMENOrdering Facility: [facility] Address: [address] [place] [address] Performed By: #### 2 4321-2, , 2776-06 ####[facility]ATORYCLIA [id number] [address] STATES OF [facility] Sodium [Moles/Vol] 137 mmol/L Normal 136-144 [facility] Comment on above: Order Comment: Speci men Type: BLOOD SPECIMENOrdering Facility: [facility] Address: [address] [place] [address] Performed By: #### 2 4321-2, , 2776-06 ####[facility]ATORYCLIA [id number] [address] [place] Urea nitrogen [Mass/Vol] 16 mg/dL Normal 7-21 [facility] Comment on above: Order Comment: Víctori aman Type: BLOOD SPECIMENOrdering Facility: [facility] Address: [address] [place] [address] Performed By: #### 2 4321-2, , 2776-06 ####[facility]ATORYCLIA [id number] [place] [address] [place] CASE MGT INIT ASSESon 2024 CASE MGT INIT ASSES Normal [facility] CBC panel Auto (Bld)on 04-10 Erythrocyte distribution width (RBC) [Ratio] 13.6 % Normal 11.5-15.0 [facility] Comment on above: Order Comment: Speci men Type: BLOOD SPECIMENOrdering Facility: [facility] Address: [address] [place] [address] Performed By: #### 5 8410-2 ####[facility]ORYCLIA [id number] [address] Hematocrit (Bld) [Volume fraction] 42.2 % Normal 36.0-46.0 [facility] Comment on above: Order Comment: Speci men Type: BLOOD SPECIMENOrdering Facility: [facility] Address: [address] [place] [address] Performed By: #### 5 8410-2 ####[facility]ORYCLIA [id number] [address] [place] Hemoglobin (Bld) [Mass/Vol] 14.5 g/dL Normal 11.5-15.5 [facility] Comment on above: Order Comment: Speci men Type: BLOOD SPECIMENOrdering Facility: [facility] Address: [address] [place] [address] Performed By: #### 5 8410-2 ####[facility]ORYCLIA [id number] [address] STATES [facility] MCH (RBC) [Entitic mass] 28.4 pg Normal 26.0-34.0 [facility] Comment on above: Order Comment: Speci men Type: BLOOD SPECIMENOrdering Facility: [facility] Address: [address] [place] [address] Performed By: #### 5 8410-2 ####[facility]ORYCLIA [id number] [address] [place] MCHC (RBC) [Mass/Vol] 34.4 g/dL Normal 30.5-36.0 [facility] Comment on above: Order Comment: Speci men Type: BLOOD SPECIMENOrdering Facility: [facility] Address: [address] [place] [address] Performed By: #### 5 8410-2 ####[facility]ATORYCLIA [id number] [place] [address] [place] MCV (RBC) [Entitic vol] 82.7 fL Normal 80.0-100.0 [facility] Comment on above: Order Comment: Speci men Type: BLOOD SPECIMENOrdering Facility: [facility] Address: [address] [place] [address] Performed By: #### 5 8410-2 ####[facility]ORYCLIA [id number] [place] [address] [place] Nucleated RBC (Bld) [#/Vol] 10*3/uL Normal <0.01 [facility] Comment on above: Order Comment: Speci men Type: BLOOD SPECIMENOrdering Facility: [facility] Address: [address] [place] [address] Performed By: #### 5 8410-2 ####[facility]ORYCLIA [id number] [address] [place] Platelet mean volume (Bld) [Entitic vol] 9.5 fL Normal 9.0-12.7 [facility] Comment on above: Order Comment: Speci men Type: BLOOD SPECIMENOrdering Facility: [facility] Address: [address] [place] [address] Performed By: #### 5 8410-2 ####[facility]ORYCLIA [id number] [address] [place] Platelets (Bld) [#/Vol] 200 10*3/uL Normal 150-400 [facility] Comment on above: Order Comment: Speci men Type: BLOOD SPECIMENOrdering Facility: [facility] Address: [address] [place] [address] Performed By: #### 5 8410-2 ####[facility]ORYCLIA [id number] [address] [place] RBC (Bld) [#/Vol] 5.10 10*6/uL Normal 3.90-5.20 [facility] Comment on above: Order Comment: Speci men Type: BLOOD SPECIMENOrdering Facility: [facility] Address: [address] [place] [address] Performed By: #### 5 8410-2 ####[facility]ORYCLIA [id number] [address] [place] WBC (Bld) [#/Vol] 8.43 10*3/uL Normal 3.70-11.00 [facility] Comment on above: Order Comment: Speci men Type: BLOOD SPECIMENOrdering Facility: [facility] Address: [address] [place] [address] Performed By: #### 5 8410-2 ####[facility]ORYCLIA [id number] [address] STATES OF [facility] Erythrocyte distribution width (RBC) [Ratio] 13.5 % Normal 11.5-15.0 [facility] Comment on above: Order Comment: Speci men Type: BLOOD SPECIMENOrdering Facility: [facility] Address: [address] [place] [address] Performed By: #### 5 8410-2 ####[facility]ORYCLIA [id number] [address] Hematocrit (Bld) [Volume fraction] 38.2 % Normal 36.0-46.0 [facility] Comment on above: Order Comment: Speci men Type: BLOOD SPECIMENOrdering Facility: [facility] Address: [address] [place] [address] Performed By: #### 5 8410-2 ####[facility]ORYCLIA [id number] [address] Hemoglobin (Bld) [Mass/Vol] 12.9 g/dL Normal 11.5-15.5 [facility] Comment on above: Order Comment: Speci men Type: BLOOD SPECIMENOrdering Facility: [facility] Address: [address] [place] [address] Performed By: #### 5 8410-2 ####[facility]ATORYCLIA [id number] [address] [place] MCH (RBC) [Entitic mass] 28.0 pg Normal 26.0-34.0 [facility] Comment on above: Order Comment: Speci men Type: BLOOD SPECIMENOrdering Facility: [facility] Address: [address] [place] [address] Performed By: #### 5 8410-2 ####[facility]ATORYCLIA [id number] [address] MCHC (RBC) [Mass/Vol] 33.8 g/dL Normal 30.5-36.0 [facility] Comment on above: Order Comment: Speci men Type: BLOOD SPECIMENOrdering Facility: [facility] Address: [address] [place] [address] Performed By: #### 5 8410-2 ####[facility]ATORYCLIA [id number] [address] MCV (RBC) [Entitic vol] 83.0 fL Normal 80.0-100.0 [facility] Comment on above: Order Comment: Speci men Type: BLOOD SPECIMENOrdering Facility: [facility] Address: [address] [place] [address] Performed By: #### 5 8410-2 ####[facility]ORYCLIA [id number] [address] Nucleated RBC (Bld) [#/Vol] 10*3/uL Normal <0.01 [facility] Comment on above: Order Comment: Speci men Type: BLOOD SPECIMENOrdering Facility: [facility] Address: [address] [place] [address] Performed By: #### 5 8410-2 ####[facility]ORYCLIA [id number] [address] Platelet mean volume (Bld) [Entitic vol] 10.2 fL Normal 9.0-12.7 [facility] Comment on above: Order Comment: Speci men Type: BLOOD SPECIMENOrdering Facility: [facility] Address: [address] [place] [address] Performed By: #### 5 8410-2 ####[facility]ORYCLIA [id number] [address] Platelets (Bld) [#/Vol] 213 10*3/uL Normal 150-400 [facility] Comment on above: Order Comment: Speci men Type: BLOOD SPECIMENOrdering Facility: [facility] Address: [address] [place] [address] Performed By: #### 5 8410-2 ####[facility]ATORYCLIA [id number] [place] [address] [place] RBC (Bld) [#/Vol] 4.60 10*6/uL Normal 3.90-5.20 [facility] Comment on above: Order Comment: Speci men Type: BLOOD SPECIMENOrdering Facility: [facility] Address: [address] [place] [address] Performed By: #### 5 8410-2 ####[facility]ATORYCLIA [id number] [address] WBC (Bld) [#/Vol] 7.37 10*3/uL Normal 3.70-11.00 [facility] Comment on above: Order Comment: Speci men Type: BLOOD SPECIMENOrdering Facility: [facility] Address: [address] [place] [address] Performed By: #### 5 8410-2 ####[facility]ORYCLIA [id number] [address] CONSULT PROGon 04-10-2025 CONSULT PROG Normal [facility] Magnesium SerPl-mCncon 04-10 Magnesium [Mass/Vol] 1.9 mg/dL Normal 1.7-2.3 [facility] Comment on above: Order Comment: Speci men Type: BLOOD SPECIMENOrdering Facility: [facility] Address: [address] [place] [address] Performed By: #### 2 4321-2, 27624-7, 2777-1 ####[facility]ATORYCLIA [id number] [address] [place] PT panel Coag (PPP)on 2024 INR Coag (PPP) [Relative time] 1.1 {INR} Normal 0.9-1.3 [facility] Comment on above: Order Comment: Franco newton Type: BLOOD SPECIMENOrdering Facility: [facility] Address: [address] [place], [place] [address] Result Comment: Tequila min K Antagonist (VKA) Therapeutic Range: INR 2 to 3 (Target INR of 2.5)Note: For patients treated with VKA drugs, such as warfarin, the [place] [employer] 2012 Guideline recommends [...] al. Chest 2012, 141:7S-47SNishimmary RA, et al. [facility] 2017, 70: 252-289 Performed By: #### 3 4528-0, 16782-3 ####[facility]ATORYCLIA [id number] [place] [address] [place] PT Coag (PPP) [Time] 11.5 s Normal 9.7-13.0 [facility] Comment on above: Order Comment: Franco newton Type: BLOOD SPECIMENOrdering Facility: [facility] Address: [address] [place] [id number] Performed By: #### 3 4528-0, 93642-4 ####[facility]ATORYCLIA [id number] [place] [address] [place] Phosphate SerPl-mCncon 04-10 Phosphate [Mass/Vol] 4.3 mg/dL Normal 2.7-4.8 [facility] Comment on above: Order Comment: Franco newton Type: BLOOD SPECIMENOrdering Facility: [facility] Address: [address] [place] [address] Performed By: #### 2 4321-2, 23997-6, 2777-1 ####[facility]ORYCLIA [id number] [address] STATES OF [facility] aPTT PPPon 04-10-2025 aPTT Coag (PPP) [Time] 83.4 s High 23.0-32.4 [facility] Comment on above: Order Comment: Speci men Type: BLOOD SPECIMENOrdering Facility: [facility] Address: [address] [place] [address] Performed By: #### 1 4979-9 ####[facility]ORYCLIA [id number] [address] STATES OF [facility] aPTT Coag (PPP) [Time] 27.1 s Normal 23.0-32.4 [facility] Comment on above: Order Comment: Speci men Type: BLOOD SPECIMENOrdering Facility: [facility] Address: [address] [place] [address] Performed By: #### 3 4528-0, 57500-2 ####[facility]ORYCLIA [id number] [place] [address] [place] Basic metabolic 2000 panelon 04-09-2025 Anion gap [Moles/Vol] 10 mmol/L Normal 8-15 [facility] Comment on above: Order Comment: Speci men Type: BLOOD SPECIMENOrdering Facility: [facility] Address: [address] [place] [address] Performed By: #### 2 777-1, 56663-9, ####[facility]ORYCLIA [id number] [place] [address] [place] Calcium [Mass/Vol] 8.2 mg/dL Low 8.5-10.2 [facility] Comment on above: Order Comment: Speci men Type: BLOOD SPECIMENOrdering Facility: [facility] Address: [address] [place] [address] Performed By: #### 2 777-1, 24992-5, ####[facility]ATORYCLIA [id number] [place] [address] [place] Chloride [Moles/Vol] 103 mmol/L Normal 98-107 [facility] Comment on above: Order Comment: Speci men Type: BLOOD SPECIMENOrdering Facility: [facility] Address: [address] [place] [address] Performed By: #### 2 777-1, 50517-6, 00534-7 ####[facility]PITALCLIA [id number] [place] [id number] [facility] [place] CO2 [Moles/Vol] 25 mmol/L Normal 22-30 [facility] Comment on above: Order Comment: Speci men Type: BLOOD SPECIMENOrdering Facility: [facility] Address: [address] [place] [address] Performed By: #### 2 777-1, 66727-5, 73225-0 ####[facility]PITALCLIA [id number] [address] STATES OF [facility] Creatinine [Mass/Vol] 0.60 mg/dL Normal 0.58-0.96 [facility] Comment on above: Order Comment: Speci men Type: BLOOD SPECIMENOrdering Facility: [facility] Address: [address] [place] [address] Performed By: #### 2 777-1, 57291-9, 05666-0 ####[facility]ITALCLIA [id number] [address] [place] eGFRcr SerPlBld CKD-EPI 2020 94 mL/min/1.73m??? Normal >=60 [facility] Comment on above: Order Comment: Speci men Type: BLOOD SPECIMENOrdering Facility: [facility] Address: [address] [place] [address] Result Comment: Yessica mated Glomerular Filtration Rate [...] actual GFR. Performed By: #### 2 777-1, 17721-7, ####[facility]ATORYCLIA [id number] [place] [address] [place] Glucose [Mass/Vol] 116 mg/dL High 74-99 [facility] Comment on above: Order Comment: Franco newton Type: BLOOD SPECIMENOrdering Facility: [facility] Address: [address] [place] [address] Result Comment: The [place] [employer] (ADA) provides guidance for cutoff [...] Standards of Medical Care in Diabetes 2016, [place] [employer]. Diabetes Care. 2016.39(Suppl 1). Performed By: #### 2 777-1, , ####[facility]ATORYCLIA [id number] [place] [address] [place] Potassium [Moles/Vol] 3.7 mmol/L Normal 3.7-5.1 [facility] Comment on above: Order Comment: Franco newton Type: BLOOD SPECIMENOrdering Facility: [facility] Address: [address] [place] [address] Performed By: #### 2 777-1, 20189-6, ####[facility]ATORYCLIA [id number] [place] [address] [place] Sodium [Moles/Vol] 138 mmol/L Normal 136-144 [facility] Comment on above: Order Comment: Franco newton Type: BLOOD SPECIMENOrdering Facility: [facility] Address: [address] [place] [address] Performed By: #### 2 777-1, 16046-7, 28803-8 ####[facility]ATORYCLIA [id number] [address] STATES [facility] Urea nitrogen [Mass/Vol] 14 mg/dL Normal 7-21 [facility] Comment on above: Order Comment: Speci men Type: BLOOD SPECIMENOrdering Facility: [facility] Address: [address] [place] [address] Performed By: #### 2 777-1, 24175-5, ####[facility]ATORYCLIA [id number] [address] CBC panel Auto (Bld)on 04-09 Erythrocyte distribution width (RBC) [Ratio] 13.5 % Normal 11.5-15.0 [facility] Comment on above: Order Comment: Speci men Type: BLOOD SPECIMENOrdering Facility: [facility] Address: [address] [place] [address] Performed By: #### 5 8410-2 ####[facility]ATORYCLIA [id number] [address] Hematocrit (Bld) [Volume fraction] 35.2 % Low 36.0-46.0 [facility] Comment on above: Order Comment: Speci men Type: BLOOD SPECIMENOrdering Facility: [facility] Address: [address] [place] [address] Performed By: #### 5 8410-2 ####[facility]ATORYCLIA [id number] [address] STATES OF [facility] Hemoglobin (Bld) [Mass/Vol] 11.7 g/dL Normal 11.5-15.5 [facility] Comment on above: Order Comment: Speci men Type: BLOOD SPECIMENOrdering Facility: [facility] Address: [address] [place] [address] Performed By: #### 5 8410-2 ####[facility]ATORYCLIA [id number] [address] STATES [facility] MCH (RBC) [Entitic mass] 27.8 pg Normal 26.0-34.0 [facility] Comment on above: Order Comment: Speci men Type: BLOOD SPECIMENOrdering Facility: [facility] Address: [address] [place] [address] Performed By: #### 5 8410-2 ####[facility]ORYCLIA [id number] [address] [place] MCHC (RBC) [Mass/Vol] 33.2 g/dL Normal 30.5-36.0 [facility] Comment on above: Order Comment: Speci men Type: BLOOD SPECIMENOrdering Facility: [facility] Address: [address] [place] [address] Performed By: #### 5 8410-2 ####[facility]ORYCLIA [id number] [address] [place] [facility] MCV (RBC) [Entitic vol] 83.6 fL Normal 80.0-100.0 [facility] Comment on above: Order Comment: Speci men Type: BLOOD SPECIMENOrdering Facility: [facility] Address: [address] [place] [address] Performed By: #### 5 8410-2 ####[facility]ATORYCLIA [id number] [address] Nucleated RBC (Bld) [#/Vol] 10*3/uL Normal <0.01 [facility] Comment on above: Order Comment: Speci men Type: BLOOD SPECIMENOrdering Facility: [facility] Address: [address] [place] [address] Performed By: #### 5 8410-2 ####[facility]ATORYCLIA [id number] [address] Platelet mean volume (Bld) [Entitic vol] 10.1 fL Normal 9.0-12.7 [facility] Comment on above: Order Comment: Speci men Type: BLOOD SPECIMENOrdering Facility: [facility] Address: [address] [place] [address] Performed By: #### 5 8410-2 ####[facility]ATORYCLIA [id number] [address] [place] Platelets (Bld) [#/Vol] 167 10*3/uL Normal 150-400 [facility] Comment on above: Order Comment: Speci men Type: BLOOD SPECIMENOrdering Facility: [facility] Address: [address] [place] [address] Performed By: #### 5 8410-2 ####[facility]ORYCLIA [id number] [address] [place] RBC (Bld) [#/Vol] 4.21 10*6/uL Normal 3.90-5.20 [facility] Comment on above: Order Comment: Speci men Type: BLOOD SPECIMENOrdering Facility: [facility] Address: [address] [place] [address] Performed By: #### 5 8410-2 ####[facility]ATORYCLIA [id number] [address] WBC (Bld) [#/Vol] 6.44 10*3/uL Normal 3.70-11.00 [facility] Comment on above: Order Comment: Speci men Type: BLOOD SPECIMENOrdering Facility: [facility] Address: [address] [place] [address] Performed By: #### 5 8410-2 ####[facility]ATORYCLIA [id number] [address] [place] CONSULTon 04-09-2025 CONSULT Normal [facility] Calcium.ionized [Moles/Vol]o n 04-09-2025 Calcium.ionized (BldV) [Mass/Vol] 1.11 mmol/L Normal 1.08-1.30 [facility] Comment on above: Order Comment: Speci men Type: BLOOD SPECIMENOrdering Facility: [facility] Address: [address] [place] [address] Performed By: #### 1 995-0 ####[facility]ATORYCLIA [id number] [address] Calcium.ionized adjusted to pH 7.4 (Bld) [Moles/Vol] 1.12 mmol/L Normal 1.08-1.30 [facility] Comment on above: Order Comment: Speci men Type: BLOOD SPECIMENOrdering Facility: [facility] Address: [address] [place] [address] Performed By: #### 1 995-0 ####[facility]ATORYCLIA [id number] [address] Magnesium [facility] 04-09 Magnesium [Mass/Vol] 1.6 mg/dL Low 1.7-2.3 [facility] Comment on above: Order Comment: Speci men Type: BLOOD SPECIMENOrdering Facility: [facility] Address: [address] [place] [address] Performed By: #### 2 777-1, 92902-3, ####[facility]ORYCLIA [id number] [address] [place] NURSING PROGon 04-09-2025 NURSING PROG Normal [facility] Phosphate SerPl-ncon 04-09 Phosphate [Mass/Vol] 3.6 mg/dL Normal 2.7-4.8 [facility] Comment on above: Order Comment: Speci men Type: BLOOD SPECIMENOrdering Facility: [facility] Address: [address] [place] [address] Performed By: #### 2 777-1, 46236-6, ####[facility]ATORYCLIA [id number] [address] [place] XR FEMUR 2V AP/LAT LTon 03-16 XR FEMUR 2V AP/LAT LT Normal [facility] XR PELVIS 1V APon 04-09-2025 XR PELVIS 1V AP Normal [facility] aPTT PPPon 04-09-2025 aPTT Coag (PPP) [Time] 80.6 s High 23.0-32.4 [facility] Comment on above: Order Comment: Speci men Type: BLOOD SPECIMENOrdering Facility: [facility] Address: [address] [place] [address] Performed By: #### 1 4979-9 ####[facility]ORYCLIA [id number] [address] [place] aPTT Coag (PPP) [Time] 111.6 s High 23.0-32.4 [facility] Comment on above: Order Comment: Speci men Type: BLOOD SPECIMENOrdering Facility: [facility] Address: [address] [place] [address] Performed By: #### 1 4979-9 ####[facility]ATORYCLIA [id number] [place] [address] [place] Basic metabolic 2000 panelon 04-08-2025 Anion gap [Moles/Vol] 10 mmol/L Normal 8-15 [facility] Comment on above: Order Comment: Speci men Type: BLOOD SPECIMENOrdering Facility: [facility] Address: [address] [place] [address] Performed By: #### 2 4321-2, 73554-5, 2777-1, LIPNF, 26944-2 ####[facility]PITALCLIA [id number] [place] [address] [place] Calcium [Mass/Vol] 9.3 mg/dL Normal 8.5-10.2 [facility] Comment on above: Order Comment: Speci men Type: BLOOD SPECIMENOrdering Facility: [facility] Address: [address] [place] [address] Performed By: #### 2 4321-2, 56323-9, 2777-1, LIPNF, 44874-3 ####[facility]ATORYCLIA [id number] [place] [address] [place] Chloride [Moles/Vol] 101 mmol/L Normal 98-107 [facility] Comment on above: Order Comment: Speci men Type: BLOOD SPECIMENOrdering Facility: [facility] Address: [address] [place] [address] Performed By: #### 2 4321-2, 64075-6, 2777-1, LIPNF, 39011-3 ####[facility]ITALCLIA [id number] [place] [address] [place] CO2 [Moles/Vol] 28 mmol/L Normal 22-30 [facility] Comment on above: Order Comment: Speci men Type: BLOOD SPECIMENOrdering Facility: [facility] Address: [address] [place] [address] Performed By: #### 2 4321-2, 93149-7, 7-1, LIPNF, 53617-8 ####[facility] [id number] [address] [place] Creatinine [Mass/Vol] 0.53 mg/dL Low 0.58-0.96 [facility] Comment on above: Order Comment: Speci men Type: BLOOD SPECIMENOrdering Facility: [facility] Address: [address] [place] [address] Performed By: #### 2 4321-2, 53226-1, 7-1, LIPNF, 35538-4 ####[facility] [id number] [address] [place] eGFRcr SerPlBld CKD-EPI 2020 97 mL/min/1.73m??? Normal >=60 [facility] Comment on above: Order Comment: Speci men Type: BLOOD SPECIMENOrdering Facility: [facility] Address: [address] [place] [address] Result Comment: Yessica mated Glomerular Filtration Rate [...] actual GFR. Performed By: #### 2 4321-2, 57752-3, 2777-1, LIPNF, 54812-4 ####[facility]ORYCLIA [id number] [place] [address] [place] Glucose [Mass/Vol] 177 mg/dL High 74-99 [facility] Comment on above: Order Comment: Speci men Type: BLOOD SPECIMENOrdering Facility: [facility] Address: [address] [place] [address] Result Comment: The [place] Diabetes Association (ADA) provides guidance for cutoff [...] Standards of Medical Care in Diabetes 2016, [place] [employer]. Diabetes Care. 2016.39(Suppl 1). Performed By: #### 2 4321-2, 32270-3, 2777-1, LIPNF, 97690-0 ####[facility] CENTERIA [id number] [place] [address] [place] Potassium [Moles/Vol] 3.7 mmol/L Normal 3.7-5.1 [facility] Comment on above: Order Comment: Speci men Type: BLOOD SPECIMENOrdering Facility: [facility] Address: [address] [place] [address] Performed By: #### 2 4321-2, , 2777-1, LIPNF, 02119-8 ####[facility]ORY[facility]IA [id number] [place] [address] [place] Sodium [Moles/Vol] 139 mmol/L Normal 136-144 [facility] Comment on above: Order Comment: Speci men Type: BLOOD SPECIMENOrdering Facility: [facility] Address: [address] [place] [address] Performed By: #### 2 4321-2, , 2777-1, LIPNF, 49097-6 ####[facility]ORYCLIA [id number] [place] [address] [place] Urea nitrogen [Mass/Vol] 12 mg/dL Normal 7-21 [facility] Comment on above: Order Comment: Speci men Type: BLOOD SPECIMENOrdering Facility: [facility] Address: [address] [place] [address] Performed By: #### 2 4321-2, 23995-4, 2777-1, LIPNF, 70090-5 ####[facility]ORYCLIA [id number] [address] [place] CBC panel Auto (Bld)on 04-08 Erythrocyte distribution width (RBC) [Ratio] 13.4 % Normal 11.5-15.0 [facility] Comment on above: Order Comment: Speci men Type: BLOOD SPECIMENOrdering Facility: [facility] Address: [address] [place] [address] Performed By: #### 5 5454-3 ####[facility] LABCLIA [id number] [address] [place]#### 77078-1 ####[facility]ORYCLIA [id number] [address] STATES OF [facility] Hematocrit (Bld) [Volume fraction] 43.7 % Normal 36.0-46.0 [facility] Comment on above: Order Comment: Speci men Type: BLOOD SPECIMENOrdering Facility: [facility] Address: [address] [place] [address] Performed By: #### 5 5454-3 ####[facility] LABCLIA [id number] [place] [address] [place]#### 75093-5 ####[facility]ORY[facility]IA [id number] [address] [place] Hemoglobin (Bld) [Mass/Vol] 14.7 g/dL Normal 11.5-15.5 [facility] Comment on above: Order Comment: Speci men Type: BLOOD SPECIMENOrdering Facility: [facility] Address: [address] [place] [address] Performed By: #### 5 5454-3 ####[facility] LABCLIA [id number] [address]#### 63876-8 ####[facility]ORYCLIA [id number] [address] MCH (RBC) [Entitic mass] 28.0 pg Normal 26.0-34.0 [facility] Comment on above: Order Comment: Speci men Type: BLOOD SPECIMENOrdering Facility: [facility] Address: [address] [place] [address] Performed By: #### 5 5454-3 ####[facility] LABCLIA [id number] [address] [place]#### 43174-6 ####[facility]ORYCLIA [id number] [address] MCHC (RBC) [Mass/Vol] 33.6 g/dL Normal 30.5-36.0 [facility] Comment on above: Order Comment: Speci men Type: BLOOD SPECIMENOrdering Facility: [facility] Address: [address] [place] [address] Performed By: #### 5 5454-3 ####[facility] LABCLIA [id number] [address]#### 85266-4 ####[facility]ORYCLIA [id number] [address] MCV (RBC) [Entitic vol] 83.2 fL Normal 80.0-100.0 [facility] Comment on above: Order Comment: Speci men Type: BLOOD SPECIMENOrdering Facility: [facility] Address: [address] [place] [address] Performed By: #### 5 5454-3 ####[facility] LABCLIA [id number] [address] OF [place]#### 15006-8 ####[facility]ORYCLIA [id number] [address] Nucleated RBC (Bld) [#/Vol] 10*3/uL Normal <0.01 [facility] Comment on above: Order Comment: Speci men Type: BLOOD SPECIMENOrdering Facility: [facility] Address: [address] [place] [address] Performed By: #### 5 5454-3 ####[facility] LABCLIA [id number] [address]#### 14643-1 ####[facility]ORYCLIA [id number] [address] Platelet mean volume (Bld) [Entitic vol] 10.3 fL Normal 9.0-12.7 [facility] Comment on above: Order Comment: Speci men Type: BLOOD SPECIMENOrdering Facility: [facility] Address: [address] [place] [address] Performed By: #### 5 5454-3 ####[facility] LABCLIA [id number] [address]#### 54620-2 ####[facility]ORYCLIA [id number] [address] Platelets (Bld) [#/Vol] 200 10*3/uL Normal 150-400 [facility] Comment on above: Order Comment: Speci men Type: BLOOD SPECIMENOrdering Facility: [facility] Address: [address] [place] [address] Performed By: #### 5 5454-3 ####[facility] LABCLIA [id number] [address] [place]#### 42347-0 ####[facility]ORYCLIA [id number] [address] [place] RBC (Bld) [#/Vol] 5.25 10*6/uL High 3.90-5.20 [facility] Comment on above: Order Comment: Speci men Type: BLOOD SPECIMENOrdering Facility: [facility] Address: [address] [place] [address] Performed By: #### 5 5454-3 ####[facility] LABCLIA [id number] [address] [place]#### 05095-9 ####[facility]ORYCLIA [id number] [address] [place] WBC (Bld) [#/Vol] 8.02 10*3/uL Normal 3.70-11.00 [facility] Comment on above: Order Comment: Speci men Type: BLOOD SPECIMENOrdering Facility: [facility] Address: [address] [place] [address] Performed By: #### 5 5454-3 ####[facility] LABCLIA [id number] [address] [place]#### 68997-5 ####[facility]ORYCLIA [id number] [address] [place] CONSULTon 04-08-2025 CONSULT Normal [facility] CONSULT Normal [facility] CONSULT Normal [facility] Calcium.ionized [Moles/Vol]o n 04-08-2025 Calcium.ionized (BldV) [Mass/Vol] 1.19 mmol/L Normal 1.08-1.30 [facility] Comment on above: Order Comment: Speci men Type: BLOOD SPECIMENOrdering Facility: [facility] Address: [address] [place] [address] Performed By: #### 1 995-0 ####[facility]ORYCLIA [id number] [address] Calcium.ionized adjusted to pH 7.4 (Bld) [Moles/Vol] 1.20 mmol/L Normal 1.08-1.30 [facility] Comment on above: Order Comment: Speci men Type: BLOOD SPECIMENOrdering Facility: [facility] Address: [address] [place] [address] Performed By: #### 1 995-0 ####[facility]ORYCLIA [id number] [address] [place] ECG COMPLETEon 04-08-2025 ECG COMPLETE Normal [facility] HbA1c (Bld)on 04-08-2025 Average glucose Estimated from glycated hemoglobin (Bld) [Mass/Vol] 266 mg/dL Normal [facility] Comment on above: Order Comment: Víctorklaudia newton Type: BLOOD SPECIMENOrdering Facility: [facility] Address: [address] [place] [address] Result Comment: eAG: (Estimated average glucose) is a calculated value from HgbA1c and is senior human resources representative of the average blood glucose level in the last 2-3 month period. Performed By: #### 5 5454-3 ####[facility] LABCLIA [id number] [address] STATES [facility]#### 67125-5 ####[facility]ORYCLIA [id number] [address] STATES [facility] HbA1c (Bld) [Mass fraction] 10.9 % High 4.3-5.6 [facility] Comment on above: Order Comment: Franco newton Type: BLOOD SPECIMENOrdering Facility: [facility] Address: [address] [place] [address] Result Comment: [place] Diabetes Association guidelines indicate that patients with HgbA1c in the range 5.7-6.4% are at increased risk for development of diabetes, and intervention by lifestyle modification may be beneficial. HgbA1c greater or equal to 6.5% is considered diagnostic of diabetes. Performed By: #### 5 5454-3 ####[facility] LABCLIA [id number] [address] [place]#### 08386-1 ####[facility]ORYCLIA [id number] [place] [id number] [place] [facility] Hepatic function 2000 panelo n 04-08-2025 Albumin [Mass/Vol] 3.5 g/dL Low 3.9-4.9 [facility] Comment on above: Order Comment: Speci men Type: BLOOD SPECIMENOrdering Facility: [facility] Address: [address] [place] [address] Performed By: #### 2 4321-2, 73949-1, 2777-1, LIPNF, 17930-2 ####[facility]ORYCLIA [id number] [place] [address] [place] [facility] ALP [Catalytic activity/Vol] 73 U/L Normal 34-123 [facility] Comment on above: Order Comment: Speci men Type: BLOOD SPECIMENOrdering Facility: [facility] Address: [address] [place] [address] Performed By: #### 2 4321-2, 93698-4, 2777-1, LIPNF, 16599-4 ####[facility]ORYCLIA [id number] [place] [address] [place] ALT With P-5'-P [Catalytic activity/Vol] 26 U/L Normal 7-38 [facility] Comment on above: Order Comment: Speci men Type: BLOOD SPECIMENOrdering Facility: [facility] Address: [address] [place] [address] Performed By: #### 2 4321-2, 96064-6, 2777-1, LIPNF, 32736-7 ####[facility]ORYCLIA [id number] [place] [address] [place] AST With P-5'-P [Catalytic activity/Vol] 33 U/L Normal 13-35 [facility] Comment on above: Order Comment: Speci men Type: BLOOD SPECIMENOrdering Facility: [facility] Address: [address] [place] [address] Performed By: #### 2 4321-2, 52770-3, 2777-1, LIPNF, 96987-6 ####[facility]ORYCLIA [id number] [place] [id number] [place] Bilirubin [Mass/Vol] 0.5 mg/dL Normal 0.2-1.3 [facility] Comment on above: Order Comment: Speci men Type: BLOOD SPECIMENOrdering Facility: [facility] Address: [address] [place] [address] Performed By: #### 2 4321-2, 11888-6, 2777-1, LIPNF, 44900-7 ####[facility]ORYCLIA [id number] [address] OF [facility] Bilirubin.conjugated [Mass/Vol] 0.2 mg/dL Normal <0.3 [facility] Comment on above: Order Comment: Speci men Type: BLOOD SPECIMENOrdering Facility: [facility] Address: [address] [place] [address] Performed By: #### 2 4321-2, 99754-6, 7-1, LIPNF, 75210-9 ####[facility]ORYCLIA [id number] [place] [address] [place] Protein [Mass/Vol] 6.4 g/dL Normal 6.3-8.0 [facility] Comment on above: Order Comment: Speci men Type: BLOOD SPECIMENOrdering Facility: [facility] Address: [address] [place] [address] Performed By: #### 2 4321-2, 19241-6, 7-1, LIPNF, 98273-3 ####[facility]ORYCLIA [id number] [place] [address] [place] [facility] LIPID PANEL, NONFASTINGon Cholesterol [Mass/Vol] 103 mg/dL Normal <200 [facility] Comment on above: Order Comment: Speci men Type: BLOOD SPECIMENOrdering Facility: [facility] Address: [address] [place] [address] Result Comment: <200 mg/dL, Desirable 200-239 mg/dL, Borderline high>239 mg/dL, High Performed By: #### 2 4321-2, 14318-6, 2777-1, LIPNF, 21502-1 ####[facility]ORYCLIA [id number] [address] HDL CHOLESTEROL, NF 50 mg/dL Normal >39 [facility] Comment on above: Order Comment: Speci men Type: BLOOD SPECIMENOrdering Facility: [facility] Address: [address] [place] [address] Result Comment: 40-5 9 mg/dL, Acceptable>59 mg/dL, High: Negative risk factor for coronary heart disease<40 mg/dL, Low: Positive risk factor for coronary heart disease Performed By: #### 2 4321-2, 61670-1, 7-1, LIPNF, 92402-4 ####[facility]ORYCLIA [id number] [address] LDL CHOLESTEROL CALCULATED, NF 33 mg/dL Normal <100 [facility] Comment on above: Order Comment: Franco aman Type: BLOOD SPECIMENOrdering Facility: [facility] Address: [address] [place] [address] Result Comment: <100 mg/dL, Optimal 100-129 mg/dL, Near optimal/above optimal 130-159 mg/dL, Borderline high 160-189 mg/dL, High>189 mg/dL, Very highSecondary prevention optimal LDL Cholesterol levels are recommended to be <70 mg/dLLDL cholesterol is calculated using the Dumont-NIH equation. Performed By: #### 2 4321-2, 00515-1, 7-1, LIPNF, 48676-6 ####[facility]ORYCLIA [id number] [address] LDL/HDL RATIO, NF 0.66 mg/dL Normal <2.54 [facility] Comment on above: Order Comment: Speci men Type: BLOOD SPECIMENOrdering Facility: [facility] Address: [address] [place] [address] Result Comment: Serena nair:1. National Cholesterol Education Program ATP III Guideline At-A-Glance Quick Desk Reference: National Heart, Lung, and Blood [place]. National Institutes of Health. 2001: NIH Publication No. 01-3305.2. An International Atherosclerosis Society position paper: global recommendations for the management of dyslipidemia: executive summary, Atherosclerosis. 2014: 232(2):410-413. Performed By: #### 2 4321-2, 21231-3, 7-1, LIPNF, 89589-3 ####[facility]ORYCLIA [id number] [address] [place] NON HDL CHOL, NF 53 mg/dL Normal <130 [facility] Comment on above: Order Comment: Speci men Type: BLOOD SPECIMENOrdering Facility: [facility] Address: [address] [place] [address] Result Comment: <130 mg/dL, Optimal 130-159 mg/dL, Near optimal/above optimal 160-189 mg/dL, Borderline high 190-219 mg/dL, High>219 mg/dL, Very highSecondary prevention optimal non HDL Cholesterol levels are recommended to be <100 mg/dL Performed By: #### 2 4321-2, , 2776-1, LIPNF, 98261-0 ####[facility]ORYCLIA [id number] [address] STATES OF [facility] T CHOL/HDL RATIO NF 2.06 mg/dL Normal <5.10 [facility] Comment on above: Order Comment: Franco newton Type: BLOOD SPECIMENOrdering Facility: [facility] Address: [address] [place] [address] Performed By: #### 2 1-2, , 2776-1, LIPNF, 79863-5 ####[facility]ATORYCLIA [id number] [address] [place] TRIGLYCERIDES, NF 110 mg/dL Normal <150 [facility] Comment on above: Order Comment: Víctori men Type: BLOOD SPECIMENOrdering Facility: [facility] Address: [address] [place] [address] Result Comment: <150 mg/dL, Normal 150-199 mg/dL, Borderline high 200-499 mg/dL, High>499 mg/dL, Very high Performed By: #### 2 4321-2, 41129-2, 7-1, LIPNF, 19925-9 ####[facility]ATORYCLIA [id number] [place] [address] [place] VLDL CHOLESTEROL, NF 15 mg/dL Normal <30 [facility] Comment on above: Order Comment: Franco newton Type: BLOOD SPECIMENOrdering Facility: [facility] Address: [address] [place] [address] Performed By: #### 2 4321-2, 05212-1, 2777-1, LIP, 04622-1 ####[facility]ATORYCLIA [id number] [place] [address] [place] Magnesium SerPl-mCncon 04-08 Magnesium [Mass/Vol] 1.7 mg/dL Normal 1.7-2.3 [facility] Comment on above: Order Comment: Franco newton Type: BLOOD SPECIMENOrdering Facility: [facility] Address: [address] [place] [address] Performed By: #### 2 4321-2, 85304-5, 2777-1, [facility], 23695-3 ####[facility]ATORYCLIA [id number] [place] [id number] [place] PT panel Coag (PPP)on 2024 INR Coag (PPP) [Relative time] 1.1 {INR} Normal 0.9-1.3 [facility] Comment on above: Order Comment: Franco newton Type: BLOOD SPECIMENOrdering Facility: [facility] Address: [address] [place] [address] Result Comment: Tequila min K Antagonist (VKA) Therapeutic Range: INR 2 to 3 (Target INR of 2.5)Note: For patients treated with VKA drugs, such as warfarin, the [place] [employer] 2012 Guideline recommends [...] al. Chest 2012, 141:7S-47SNishimura RA, et al. [facility] 2017, 70: 252-289 Performed By: #### 3 4528-0, 51155-8 ####[facility]ATORYCLIA [id number] [place] [address] [place] PT Coag (PPP) [Time] 11.5 s Normal 9.7-13.0 [facility] Comment on above: Order Comment: Speci men Type: BLOOD SPECIMENOrdering Facility: [facility] Address: [address] [place] [address] Performed By: #### 3 4528-0, 49746-0 ####[facility]ITALCLIA [id number] [address] STATES OF [facility] Phosphate SerPl-mCncon 04-08 Phosphate [Mass/Vol] 3.4 mg/dL Normal 2.7-4.8 [facility] Comment on above: Order Comment: Speci aman Type: BLOOD SPECIMENOrdering Facility: [facility] Address: [address] [place] [address] Performed By: #### 2 4321-2, 92358-0, 2777-1, LIPNF, 67595-9 ####[facility] H[facility]PITALCLIA [id number] [place] [address] [place] STAPHYLOCOCCUS AUREUS AND MR SA SCREEN, PCR, NASALon 04-08-2025 S. aureus and MRSA panel FINA+probe (Nose) Not detected Normal Not Detected [facility] Comment on above: Order Comment: Speci aman Type: SWABOrdering Facility: [facility] Address: [address] [place] [address] Performed By: #### S APCR ####[facility]ATORYCLIA [id number] [place] [id number] [place] aPTT PPPon 04-08-2025 aPTT Coag (PPP) [Time] s High 23.0-32.4 [facility] Comment on above: Order Comment: Speci men Type: BLOOD SPECIMENOrdering Facility: [facility] Address: [address] [place] [id number] Performed By: #### 1 4979-9 ####[facility] LABORATORYCLIA [id number] [place] [address] [place] aPTT Coag (PPP) [Time] 38.9 s High 23.0-32.4 [facility] Comment on above: Order Comment: Speci men Type: BLOOD SPECIMENOrdering Facility: [facility] Address: [place] [address] Performed By: #### 3 4528-0, 10943-4 ####[facility]ATORYCLIA [id number] [place] [id number] [facility] OF [facility] HbA1c (Bld) [Mass fraction]o n 05-16-2024 Interpretation and review of laboratory results Abnormal [facility] POC Hemoglobin A1Con 024 HbA1c (Bld) [Mass fraction] 6.4 % Abnormal 4.0 - 6.0 % [facility] BASIC METABOLIC PANELon Anion gap [Moles/Vol] 17 mmol/L Normal 10-20 [facility] Comment on above: Order Comment: [facility] has implemented the eGFR calculation approach that does not have a coefficient for race that conforms to the NKF-ASN Task Force Recommendations. Performed By: #### 4 6124 #### LAB [address] [place] [address] Adonay Hanks M.D. [id number] Calcium [Mass/Vol] 9.7 mg/dL Normal 8.4-10.2 [facility] Comment on above: Order Comment: [facility] has implemented the eGFR calculation approach that does not have a coefficient for race that conforms to the NKF-ASN Task Force Recommendations. Performed By: #### 4 6124 #### LAB [address] [place] [address] Adonay Hanks M.D. [id number] Chloride [Moles/Vol] 102 mmol/L Normal 98-108 [facility] Comment on above: Order Comment: [facility] has implemented the eGFR calculation approach that does not have a coefficient for race that conforms to the NKF-ASN Task Force Recommendations. Performed By: #### 4 6124 #### LAB [address] [place], [place] [address] Adonay Hanks M.D. [id number] Creatinine [Mass/Vol] 0.63 mg/dL Normal 0.60-1.10 [facility] Comment on above: Order Comment: [facility] has implemented the eGFR calculation approach that does not have a coefficient for race that conforms to the NKF-ASN Task Force Recommendations. Performed By: #### 4 6124 #### LAB [address] [place] [address] Adonay Hanks M.D. [id number] EGFR 94 mL/min/1.73 m2 Normal >=60 [facility] Comment on above: Order Comment: [facility] has implemented the eGFR calculation approach that does not have a coefficient for race that conforms to the NKF-ASN Task Force Recommendations. Result Comment: Yessica mated GFR was calculated using the 2020 CKD-EPI creatinine equation. Performed By: #### 4 6124 #### LAB [address] [place] [id number] Adonay Hanks M.D. [id number] Glucose [Mass/Vol] 159 mg/dL High 65-99 [facility] Comment on above: Order Comment: [facility] has implemented the eGFR calculation approach that does not have a coefficient for race that conforms to the NKF-ASN Task Force Recommendations. Performed By: #### 4 6124 #### LAB [address] [place] [id number] Adonay Hanks M.D. [id number] HCO3 (Bld) [Moles/Vol] 24 mmol/L Normal 21-32 [facility] Comment on above: Order Comment: [facility] has implemented the eGFR calculation approach that does not have a coefficient for race that conforms to the NKF-ASN Task Force Recommendations. Performed By: #### 4 6124 #### [facility] [address] [place] [address] Adonay Hanks M.D. [id number] Potassium [Moles/Vol] 4.1 mmol/L Normal 3.5-5.1 [facility] Comment on above: Order Comment: [facility] has implemented the eGFR calculation approach that does not have a coefficient for race that conforms to the NKF-ASN Task Force Recommendations. Performed By: #### 4 6124 #### LAB [address] [place] [address] Adonay Hanks M.D. [id number] Sodium [Moles/Vol] 139 mmol/L Normal 135-145 [facility] Comment on above: Order Comment: [facility] has implemented the eGFR calculation approach that does not have a coefficient for race that conforms to the NKF-ASN Task Force Recommendations. Performed By: #### 4 6124 #### LAB [address] [place] [address] Adonay Hanks M.D. [id number] Urea nitrogen [Mass/Vol] 22 mg/dL Normal 8-25 [facility] Comment on above: Order Comment: [facility] has implemented the eGFR calculation approach that does not have a coefficient for race that conforms to the NKF-ASN Task Force Recommendations. Performed By: #### 4 6124 #### LAB [address] [place] [address] Adonay Hanks M.D. [id number] Urea nitrogen/Creatinine [Mass ratio] 34.9 mg/mg High 10.0-20.0 [facility] Comment on above: Order Comment: [facility] has implemented the eGFR calculation approach that does not have a coefficient for race that conforms to the NKF-ASN Task Force Recommendations. Performed By: #### 4 6124 #### LAB [address] [place] [address] Adonay Hanks M.D. [id number] CBC WITH AUTO DIFFERENTIALon 02-17-2024 AUTO NRBC 0.0 % [facility] Comment on above: Performed By: #### L [id number] #### LAB [address] [place] [address] Adonay Hanks M.D. [id number] AUTO NRBC ABS COUNT 0.00 K/mcL Normal 0.00-0.00 [facility] Comment on above: Performed By: #### L [id number] #### LAB [address] [place] [address] Adonay Hanks M.D. [id number] BASOPHILS ABSOLUTE COUNT 0.06 K/mcL Normal 0.00-0.30 [facility] Comment on above: Performed By: #### L [id number] #### [facility] [address] [place] [address] Adonay Hanks M.D. [id number] Basophils/100 WBC (Bld) 0.5 % [facility] Comment on above: Performed By: #### L [id number] #### [facility] [address] [place] [address] Adonay Hanks M.D. [id number] Eosinophils (Bld) [#/Vol] 0.06 10*3/uL Normal 0.00-0.50 [facility] Comment on above: Performed By: #### L [id number] #### LAB [address] [place] [address] Adonay Hanks M.D. [id number] Eosinophils/100 WBC (Bld) 0.5 % [facility] Comment on above: Performed By: #### L [id number] #### LAB [address] [place] [address] Adonay Hanks M.D. [id number] Erythrocyte distribution width (RBC) [Ratio] 13.6 % Normal 11.6-14.8 [facility] Comment on above: Performed By: #### L [id number] #### LAB [address] [place] [address] Adonay Hanks M.D. [id number] Hematocrit (Bld) [Volume fraction] 41.7 % Normal 36.0-46.0 [facility] Comment on above: Performed By: #### L [id number] #### LAB [address] [address] Adonay Hanks M.D. [id number] Hemoglobin (Bld) [Mass/Vol] 14.2 g/dL Normal 12.0-16.0 [facility] Comment on above: Performed By: #### L [id number] #### LAB [address] [address] Adonay Hanks M.D. [id number] IG ABSOLUTE 0.08 K/mcL Normal 0.00-0.30 [facility] Comment on above: Performed By: #### L [id number] #### LAB [address] [address] Adonay Hanks M.D. [id number] IG PERCENT 0.70 % Normal [facility] Comment on above: Result Comment: The IG parameter is the percentage of metamyelocytes, myelocytes and promyelocytes. An immature granulocyte count (IG) of 1% or more suggests the possibility of infection, an IG count of 3% is very likely related to an infection. Performed By: #### L [id number] #### LAB [address] [place] [address] Adonay Hanks M.D. [id number] Lymphocytes (Bld) [#/Vol] 1.61 10*3/uL Normal 0.90-4.00 [facility] Comment on above: Performed By: #### L [id number] #### LAB [address] [address] Adonay Hanks M.D. [id number] Lymphocytes/100 WBC (Bld) 14.2 % Normal [facility] Comment on above: Performed By: #### L [id number] #### LAB [address] [place] [address] Adonay Hanks M.D. [id number] MCH (RBC) [Entitic mass] 29.5 pg Normal 26.0-34.0 [facility] Comment on above: Performed By: #### L [id number] #### LAB [address] [address] Adonay Hanks M.D. [id number] MCV (RBC) [Entitic vol] 86.7 fL Normal 80.0-100.0 [facility] Comment on above: Performed By: #### L [id number] #### LAB [address] [address] Adonay Hanks M.D. [id number] MEAN CORPUSCULAR HEMOGLOBIN CONC 34.1 g/dL Normal 31.0-37.0 [facility] Comment on above: Performed By: #### L [id number] #### LAB [address] [address] Adonay Hanks M.D. [id number] Monocytes (Bld) [#/Vol] 0.70 10*3/uL Normal 0.30-0.90 [facility] Comment on above: Performed By: #### L [id number] #### LAB [address] [address] Adonay Hanks M.D. [id number] Monocytes/100 WBC (Bld) 6.2 % Normal [facility] Comment on above: Performed By: #### L [id number] #### LAB [address] [address] Adonay Hanks M.D. [id number] NEUTROPHILS ABSOLUTE COUNT 8.82 K/mcL High 1.70-7.00 [facility] Comment on above: Performed By: #### L [id number] #### LAB [address] [address] Adonay Hanks M.D. [id number] Neutrophils/100 WBC (Bld) 77.9 % Normal [facility] Comment on above: Performed By: #### L [id number] #### LAB [address] [address] Adonay Hanks M.D. [id number] Platelet mean volume (Bld) [Entitic vol] 9.5 fL Normal 9.4-12.4 [facility] Comment on above: Performed By: #### L [id number] #### LAB [address] [place], [place] [address] Adonay Hanks M.D. [id number] Platelets (Bld) [#/Vol] 199 10*3/uL Normal 150-400 [facility] Comment on above: Performed By: #### L [id number] #### MH LAB [address] [place], [place] [address] Adonay Hanks M.D. [id number] RBC (Bld) [#/Vol] 4.81 10*6/uL Normal 4.00-5.20 [facility] Comment on above: Performed By: #### L [id number] #### MH LAB [address] [id number] Adonay Hanks M.D. [id number] WBC (Bld) [#/Vol] 11.33 10*3/uL High 4.50-11.00 [facility] Comment on above: Performed By: #### L [id number] #### LAB [address] [address] Adonay Hanks M.D. [id number] CT HEAD OR BRAIN WITHOUT CON TRASTon [...] base intact. No skull lesion. Nasopharynx normal. Manager Of Digital spaces are normal. Prior cataract surgery. Mild [...] ThuFeb 17, 2024 4:19:32 PM EDT Normal [facility] Comment on above: Order Comment: Injur y/Trauma or Illness?:Illness/OtherHow long have you had these symptoms (acute/chronic)?:AcuteReason for exam?:headache, elevated bpType of Exam?:InitialAdditional signs and symptoms?:. ED Prov Noteon 02-17-2024 ED Prov Note [facility] EMERGENCY DEPARTMENT ATTENDING NOTE: NAME: Hilaria Lyons CSN: [id number] 73 y.o. PCP: No, Physician History: Chief [...] Dx E11.65 . ALL: Allergies Allergen Reactions [place] Hives Poison Rhonda Extract Poison Saxon Extract Unknown Penicillins GI Intolerance Physical Exam: [...] - normal (more content not included)... Normal [facility] TROPONINon 02-17-2024 TROPONIN T DELTA CHANGE INTERPRETATION Probable non-acute cardiac injury or late presentation of acute injury. Normal [facility] Comment on above: Performed By: #### 4 [id number] #### LAB [address] [place], [place] [address] Adonay Hanks M.D. [id number] TROPONIN T DELTA DIFFERENCE -3 ng/L Normal < = -/+ 7 change [facility] Comment on above: Performed By: #### 4 [id number] #### LAB [address] [address] Adonay Hanks M.D. [id number] TROPONIN T NG/L 15 ng/L Off scale high <=14 [facility] Comment on above: Performed By: #### 4 6608 #### LAB [address] [address] Adonay Hanks M.D. [id number] BASELINE TROPONIN T NG/L 18 ng/L Off scale high <=14 [facility] Comment on above: Performed By: #### 4 6608 #### LAB [address] [address] Adonay Hanks M.D. [id number] TROPONIN T INTERPRETATION Possible acute cardiac injury. Normal [facility] Comment on above: Performed By: #### 4 6608 #### LAB [address] [address] Adonay Hanks M.D. [id number] URINALYSISon 02-17-2024 BACTERIA, URINE None Seen Normal None Seen [facility] Comment on above: Order Comment: Micro scopic examination is performed on all urinalysis samples and only positive findings are reported. The test for blood on the chemical analytic portion of urinalysis may also be positive due to hemoglobinuria and myoglobinuria and if red blood cells are present they are quantified by microscopic examination. Performed By: #### 4 6625 #### LAB [address] [address] Adonay Hanks M.D. [id number] BILIRUBIN, URINE Negative Normal Negative [facility] Comment on above: Order Comment: Micro scopic examination is performed on all urinalysis samples and only positive findings are reported. The test for blood on the chemical analytic portion of urinalysis may also be positive due to hemoglobinuria and myoglobinuria and if red blood cells are present they are quantified by microscopic examination. Performed By: #### 4 6625 #### LAB [address] [address] Adonay Hanks M.D. [id number] BLOOD, URINE Negative Normal Negative [facility] Comment on above: Order Comment: Micro scopic examination is performed on all urinalysis samples and only positive findings are reported. The test for blood on the chemical analytic portion of urinalysis may also be positive due to hemoglobinuria and myoglobinuria and if red blood cells are present they are quantified by microscopic examination. Performed By: #### 4 6625 #### LAB [address] [address] Adonay Hanks M.D. [id number] Clarity (U) Clear Normal Clear [facility] Comment on above: Order Comment: Micro scopic examination is performed on all urinalysis samples and only positive findings are reported. The test for blood on the chemical analytic portion of urinalysis may also be positive due to hemoglobinuria and myoglobinuria and if red blood cells are present they are quantified by microscopic examination. Performed By: #### 4 6625 #### LAB [address] [address] Adonay Hanks M.D. [id number] Color (U) Yellow Normal Colorless, Yellow [facility] Comment on above: Order Comment: Micro scopic examination is performed on all urinalysis samples and only positive findings are reported. The test for blood on the chemical analytic portion of urinalysis may also be positive due to hemoglobinuria and myoglobinuria and if red blood cells are present they are quantified by microscopic examination. Performed By: #### 4 6625 #### LAB [address] [address] Adonay Hanks M.D. [id number] Glucose Ql (U) Negative Normal Negative [facility] Comment on above: Order Comment: Micro scopic examination is performed on all urinalysis samples and only positive findings are reported. The test for blood on the chemical analytic portion of urinalysis may also be positive due to hemoglobinuria and myoglobinuria and if red blood cells are present they are quantified by microscopic examination. Performed By: #### 4 6625 #### LAB [address] [place], [place] [address] Adonay Hakns M.D. [id number] Hyaline casts LM Ql (Urine sed) 6-10 Abnormal 0-2 [facility] Comment on above: Order Comment: Micro scopic examination is performed on all urinalysis samples and only positive findings are reported. The test for blood on the chemical analytic portion of urinalysis may also be positive due to hemoglobinuria and myoglobinuria and if red blood cells are present they are quantified by microscopic examination. Performed By: #### 4 6625 #### LAB [address] [id number] Adonay Hanks M.D. [id number] Ketones Ql (U) Negative Normal Negative [facility] Comment on above: Order Comment: Micro scopic examination is performed on all urinalysis samples and only positive findings are reported. The test for blood on the chemical analytic portion of urinalysis may also be positive due to hemoglobinuria and myoglobinuria and if red blood cells are present they are quantified by microscopic examination. Performed By: #### 4 6625 #### LAB [address] [address] Adonay Hanks M.D. [id number] Leukocyte esterase Test strip Ql (U) Trace Abnormal Negative [facility] Comment on above: Order Comment: Micro scopic examination is performed on all urinalysis samples and only positive findings are reported. The test for blood on the chemical analytic portion of urinalysis may also be positive due to hemoglobinuria and myoglobinuria and if red blood cells are present they are quantified by microscopic examination. Performed By: #### 4 6625 #### LAB [address] [address] Adonay Hanks M.D. [id number] MUCUS, URINE Rare Normal None Seen, Rare [facility] Comment on above: Order Comment: Micro scopic examination is performed on all urinalysis samples and only positive findings are reported. The test for blood on the chemical analytic portion of urinalysis may also be positive due to hemoglobinuria and myoglobinuria and if red blood cells are present they are quantified by microscopic examination. Performed By: #### 4 6625 #### LAB [address] [address] Adonay Hanks M.D. [id number] NITRITE, URINE Negative Normal Negative [facility] Comment on above: Order Comment: Micro scopic examination is performed on all urinalysis samples and only positive findings are reported. The test for blood on the chemical analytic portion of urinalysis may also be positive due to hemoglobinuria and myoglobinuria and if red blood cells are present they are quantified by microscopic examination. Performed By: #### 4 6625 #### LAB [address] [address] Adonay Hanks M.D. [id number] pH (U) 6.0 [pH] Normal 5.0-7.0 [facility] Comment on above: Order Comment: Micro scopic examination is performed on all urinalysis samples and only positive findings are reported. The test for blood on the chemical analytic portion of urinalysis may also be positive due to hemoglobinuria and myoglobinuria and if red blood cells are present they are quantified by microscopic examination. Performed By: #### 4 6625 #### LAB [address] [address] Adonay Hanks M.D. [id number] PROTEIN, URINE Negative Normal Negative [facility] Comment on above: Order Comment: Micro scopic examination is performed on all urinalysis samples and only positive findings are reported. The test for blood on the chemical analytic portion of urinalysis may also be positive due to hemoglobinuria and myoglobinuria and if red blood cells are present they are quantified by microscopic examination. Performed By: #### 4 6625 #### LAB [address] [address] Adonay Hanks M.D. [id number] RBC, URINE < Normal 0-3 [facility] Comment on above: Order Comment: Micro scopic examination is performed on all urinalysis samples and only positive findings are reported. The test for blood on the chemical analytic portion of urinalysis may also be positive due to hemoglobinuria and myoglobinuria and if red blood cells are present they are quantified by microscopic examination. Performed By: #### 4 6625 #### LAB [address] [place], [place] [address] Adonay Hanks M.D. [id number] Specific gravity (U) [Rel density] 1.011 Normal 1.005-1.025 [facility] Comment on above: Order Comment: Micro scopic examination is performed on all urinalysis samples and only positive findings are reported. The test for blood on the chemical analytic portion of urinalysis may also be positive due to hemoglobinuria and myoglobinuria and if red blood cells are present they are quantified by microscopic examination. Performed By: #### 4 6625 #### LAB [address] [place], [place] [address] Adonay Hanks M.D. [id number] SQUAMOUS EPITHELIAL < Normal 0-4 [facility] Comment on above: Order Comment: Micro scopic examination is performed on all urinalysis samples and only positive findings are reported. The test for blood on the chemical analytic portion of urinalysis may also be positive due to hemoglobinuria and myoglobinuria and if red blood cells are present they are quantified by microscopic examination. Performed By: #### 4 6625 #### LAB [address] [place], [place] [address] Adonay Hanks M.D. [id number] UROBILINOGEN, URINE <2.0 Normal <2.0 [facility] Comment on above: Order Comment: Micro scopic examination is performed on all urinalysis samples and only positive findings are reported. The test for blood on the chemical analytic portion of urinalysis may also be positive due to hemoglobinuria and myoglobinuria and if red blood cells are present they are quantified by microscopic examination. Performed By: #### 4 6625 #### [facility] [address] [place], [place] [address] Adonay Hanks M.D. [id number] WBC LM.HPF (Urine sed) [#/Area] 1 /[HPF] Normal 0-5 [facility] Comment on above: Order Comment: Micro scopic examination is performed on all urinalysis samples and only positive findings are reported. The test for blood on the chemical analytic portion of urinalysis may also be positive due to hemoglobinuria and myoglobinuria and if red blood cells are present they are quantified by microscopic examination. Performed By: #### 4 6625 #### LAB [address] [address] Adonay Hanks M.D. [id number] COMPREHENSIVE METABOLIC PANE Remy 02-12-2024 Albumin [Mass/Vol] 4.2 g/dL Normal 3.2-5.2 [facility] Comment on above: Order Comment: [facility] has implemented the eGFR calculation approach that does not have a coefficient for race that conforms to the NKF-ASN Task Force Recommendations. Performed By: #### 4 6126 #### LAB [address] [address] Adonay Hanks M.D. [id number] ALP [Catalytic activity/Vol] 69 U/L Normal 40-150 [facility] Comment on above: Order Comment: [facility] has implemented the eGFR calculation approach that does not have a coefficient for race that conforms to the NKF-ASN Task Force Recommendations. Performed By: #### 4 6126 #### LAB [address] [address] Adonay Hanks M.D. [id number] ALT [Catalytic activity/Vol] 12 U/L Normal 0-35 U/L [facility] Comment on above: Order Comment: [facility] has implemented the eGFR calculation approach that does not have a coefficient for race that conforms to the NKF-ASN Task Force Recommendations. Performed By: #### 4 6126 #### LAB [address] [address] Adonay Hanks M.D. [id number] Anion gap [Moles/Vol] 14 mmol/L Normal 10-20 [facility] Comment on above: Order Comment: [facility] has implemented the eGFR calculation approach that does not have a coefficient for race that conforms to the NKF-ASN Task Force Recommendations. Performed By: #### 4 6126 #### LAB [address] [address] Adonay Hanks M.D. [id number] AST [Catalytic activity/Vol] 19 U/L Normal 0-35 U/L [facility] Comment on above: Order Comment: [facility] has implemented the eGFR calculation approach that does not have a coefficient for race that conforms to the NKF-ASN Task Force Recommendations. Performed By: #### 4 6126 #### LAB [address] [address] Adonay Hanks M.D. [id number] Bilirubin [Mass/Vol] 0.8 mg/dL Normal 0.0-1.3 [facility] Comment on above: Order Comment: [facility] has implemented the eGFR calculation approach that does not have a coefficient for race that conforms to the NKF-ASN Task Force Recommendations. Performed By: #### 4 6126 #### LAB [address] [address] Adonay Hanks M.D. [id number] Calcium [Mass/Vol] 9.6 mg/dL Normal 8.4-10.2 [facility] Comment on above: Order Comment: [facility] has implemented the eGFR calculation approach that does not have a coefficient for race that conforms to the NKF-ASN Task Force Recommendations. Performed By: #### 4 6126 #### LAB [address] [address] Adonay Hanks M.D. [id number] Chloride [Moles/Vol] 103 mmol/L Normal 98-108 [facility] Comment on above: Order Comment: [facility] has implemented the eGFR calculation approach that does not have a coefficient for race that conforms to the NKF-ASN Task Force Recommendations. Performed By: #### 4 6126 #### LAB [address] [address] Adonay Hanks M.D. [id number] Creatinine [Mass/Vol] 0.57 mg/dL Low 0.60-1.10 [facility] Comment on above: Order Comment: [facility] has implemented the eGFR calculation approach that does not have a coefficient for race that conforms to the NKF-ASN Task Force Recommendations. Performed By: #### 4 6132 #### LAB [address] [address] Adonay Hanks M.D. [id number] EGFR 97 mL/min/1.73 m2 Normal >=60 [facility] Comment on above: Order Comment: [facility] has implemented the eGFR calculation approach that does not have a coefficient for race that conforms to the NKF-ASN Task Force Recommendations. Result Comment: Yessica mated GFR was calculated using the 2020 CKD-EPI creatinine equation. Performed By: #### 4 6126 #### LAB [address] [address] Adonay Hanks M.D. [id number] Glucose [Mass/Vol] 159 mg/dL High 65-99 [facility] Comment on above: Order Comment: [facility] has implemented the eGFR calculation approach that does not have a coefficient for race that conforms to the NKF-ASN Task Force Recommendations. Performed By: #### 4 6126 #### LAB [address] [address] Adonay Hanks M.D. [id number] HCO3 (Bld) [Moles/Vol] 27 mmol/L Normal 21-32 [facility] Comment on above: Order Comment: [facility] has implemented the eGFR calculation approach that does not have a coefficient for race that conforms to the NKF-ASN Task Force Recommendations. Performed By: #### 4 6126 #### LAB [address] [address] Adonay Hanks M.D. [id number] Potassium [Moles/Vol] 3.6 mmol/L Normal 3.5-5.1 [facility] Comment on above: Order Comment: [facility] has implemented the eGFR calculation approach that does not have a coefficient for race that conforms to the NKF-ASN Task Force Recommendations. Performed By: #### 4 6126 #### LAB [address] [address] Adonay Hanks M.D. [id number] Protein [Mass/Vol] 7.0 g/dL Normal 6.0-8.0 [facility] Comment on above: Order Comment: [facility] has implemented the eGFR calculation approach that does not have a coefficient for race that conforms to the NKF-ASN Task Force Recommendations. Performed By: #### 4 6126 #### LAB [address] [id number] Adonay Hanks M.D. [id number] Sodium [Moles/Vol] 140 mmol/L Normal 135-145 [facility] Comment on above: Order Comment: [facility] has implemented the eGFR calculation approach that does not have a coefficient for race that conforms to the NKF-ASN Task Force Recommendations. Performed By: #### 4 6126 #### LAB [address] [address] Adonay Hanks M.D. [id number] Urea nitrogen [Mass/Vol] 19 mg/dL Normal 8-25 [facility] Comment on above: Order Comment: [facility] has implemented the eGFR calculation approach that does not have a coefficient for race that conforms to the NKF-ASN Task Force Recommendations. Performed By: #### 4 6126 #### LAB [address] [address] Adonay Hanks M.D. [id number] Urea nitrogen/Creatinine [Mass ratio] 33.3 mg/mg High 10.0-20.0 [facility] Comment on above: Order Comment: [facility] has implemented the eGFR calculation approach that does not have a coefficient for race that conforms to the NKF-ASN Task Force Recommendations. Performed By: #### 4 6126 #### [facility] LAB [address] [place], [place] [address] Adonay Hanks M.D. [id number] HEMOGLOBIN A1Con 02-12-2024 Glucose [Mass/Vol] 131 mg/dL High 74-114 [facility] Comment on above: Performed By: #### 4 8202 #### [facility] LAB [address] [id number] Adonay Hanks M.D. [id number] HbA1c (Bld) [Mass fraction] 6.2 % High 4.2-5.6 [facility] Comment on above: Performed By: #### 4 8202 #### LAB [address] [address] Adonay Hanks M.D. [id number] T4, FREEon 02-12-2024 Free T4 [Mass/Vol] 1.4 ng/dL Normal 0.7-1.7 [facility] Comment on above: Performed By: #### 4 6567 #### LAB [address] [address] Adonay Hanks M.D. [id number] TSHon 02-12-2024 TSH Qn 1.81 m[IU]/L Normal 0.27-4.20 [facility] Comment on above: Performed By: #### 4 6613 #### LAB [address] [address] Adonay Hanks M.D. [id number] CBC Auto Differentialon 05-16 Basophils (Bld) [#/Vol] 0.06 10*3/uL [facility] Basophils/100 WBC (Bld) 0.6 % [facility] Eosinophils (Bld) [#/Vol] 0.09 10*3/uL [facility] Eosinophils/100 WBC (Bld) 0.9 % [facility] Erythrocyte distribution width (RBC) [Entitic vol] 12.7 % 11.6 - 14.8 % [facility] Hematocrit (Bld) [Volume fraction] 46.0 % 36.0 - 46.0 % [facility] Hemoglobin (Bld) [Mass/Vol] 15.1 g/dL 12.0 - 16.0 g/dL [facility] Immature granulocytes (Bld) [#/Vol] 0.07 10*3/uL [facility] Immature granulocytes/100 WBC (Bld) 0.70 % [facility] Comment on above: The IG parameter is the percentage of metamyelocytes, myelocytes and promyelocytes. An immature granulocyte count (IG) of 1% or more suggests the possibility of infection, an IG count of 3% is very likely related to an infection. Lymphocytes (Bld) [#/Vol] 3.49 10*3/uL [facility] Lymphocytes/100 WBC (Bld) 34.4 % [facility] MCH (RBC) [Entitic mass] 29.0 pg 26.0 - 34.0 pg [facility] MCHC (RBC) [Mass/Vol] 32.8 g/dL 31.0 - 37.0 g/dL [facility] MCV (RBC) [Entitic vol] 88.5 fL 80.0 - 100.0 fL [facility] Monocytes (Bld) [#/Vol] 0.74 10*3/uL [facility] Monocytes/100 WBC (Bld) 7.3 % [facility] Neutrophils (Bld) [#/Vol] 5.69 10*3/uL [facility] Neutrophils/100 WBC (Bld) 56.1 % [facility] Nucleated RBC (Bld) [#/Vol] 0.00 10*3/uL [facility] Nucleated RBC/100 WBC (Bld) [Ratio] 0.0 % [facility] Platelet mean volume (Bld) [Entitic vol] 9.9 fL 9.4 - 12.4 fL [facility] Platelets (Bld) [#/Vol] 187 10*3/uL [facility] RBC (Bld) [#/Vol] 5.20 10*6/uL [facility] ealth WBC (Bld) [#/Vol] 10.14 10*3/uL [facility] Comprehensive metabolic 2000 panelOrdered By: John Grijalva on 06-08-2022 Albumin [Mass/Vol] 2.7 g/dL Low 3.2 - 5.2 g/dL [facility] ALP [Catalytic activity/Vol] 63 U/L 40 - 150 U/L [facility] ALT [Catalytic activity/Vol] 18 U/L 14 - 65 U/L [facility] Anion gap [Moles/Vol] 13 mmol/L 10 - 20 mmol/L [facility] AST [Catalytic activity/Vol] 20 U/L 0 - 45 U/L [facility] Bilirubin [Mass/Vol] 0.6 mg/dL 0.0 - 1 .3 mg/dL [facility] Calcium [Mass/Vol] 8.8 mg/dL 8.4 - 10. 2 mg/dL [facility] Chloride [Moles/Vol] 110 mmol/L High 98 - 10 8 mmol/L [facility] Creatinine [Mass/Vol] 0.48 mg/dL Low 0.60 - 1.20 mg/dL [facility] GFR/1.73 sq M.predicted CKD-EPI (S/P/Bld) [Vol rate/Area] 101 - PINF [facility] Comment on above: Estimated GFR was ca lculated using the 2020 CKD-EPI creatinine equation. Glucose [Mass/Vol] 76 mg/dL 65 - 99 mg/dL [facility] HCO3 [Moles/Vol] 23 mmol/L 21 - 32 mmol/L [facility] Interpretation and review of laboratory results Abnormal [facility] Potassium [Moles/Vol] 3.7 mmol/L 3.5 - 5.1 mmol/L [facility] Protein [Mass/Vol] 5.2 g/dL Low 6.0 - 8.0 g/dL [facility] Sodium [Moles/Vol] 142 mmol/L 135 - 145 mmol/L [facility] Urea nitrogen [Mass/Vol] 11 mg/dL 8 - 25 mg/dL [facility] Urea nitrogen/Creatinine [Mass ratio] 22.9 mg/mg High 10.0 - 20.0 [facility] has implemented the eGFR calculation approach that does not have a coefficient for race that conforms to the NKF-ASN Task Force Recommendations. [facility] Glucose (Bld) [Mass/Vol]on 1 08-09-2021 Glucose [Mass/Vol] 200 mg/dL High 65 - 99 mg/dL [facility] Interpretation and review of laboratory results Abnormal [facility] Glucose [Mass/Vol] 103 mg/dL High 65 - 99 mg/dL [facility] Interpretation and review of laboratory results Abnormal [facility] Magnesium Levelon 06-08-2022 Magnesium [Mass/Vol] 2.0 mg/dL 1.6 - 2 .4 mg/dL [facility] Magnesium [Mass/Vol]on 06-08 Interpretation and review of laboratory results Normal [facility] Basic metabolic 2000 panelon 06-07-2022 Anion gap [Moles/Vol] 14 mmol/L 10 - 20 mmol/L [facility] Calcium [Mass/Vol] 9.2 mg/dL 8.4 - 10. 2 mg/dL [facility] Chloride [Moles/Vol] 102 mmol/L 98 - 10 8 mmol/L [facility] Creatinine [Mass/Vol] 0.58 mg/dL Low 0.60 - 1.20 mg/dL [facility] GFR/1.73 sq M.predicted CKD-EPI (S/P/Bld) [Vol rate/Area] 97 - PINF [facility] Comment on above: Estimated GFR was ca lculated using the 2020 CKD-EPI creatinine equation. Glucose [Mass/Vol] 344 mg/dL High 65 - 99 mg/dL [facility] HCO3 [Moles/Vol] 26 mmol/L 21 - 32 mmol/L [facility] Interpretation and review of laboratory results Abnormal [facility] Potassium [Moles/Vol] 3.9 mmol/L 3.5 - 5.1 mmol/L [facility] Sodium [Moles/Vol] 138 mmol/L 135 - 145 mmol/L [facility] Urea nitrogen [Mass/Vol] 12 mg/dL 8 - 25 mg/dL [facility] Urea nitrogen/Creatinine [Mass ratio] 20.7 mg/mg High 10.0 - 20.0 [facility] y Services has implemented the eGFR calculation approach that does not have a coefficient for race that conforms to the NKF-ASN Task Force Recommendations. [facility] Anion gap [Moles/Vol] 8 mmol/L Low 10 - 20 mmol/L [facility] Calcium [Mass/Vol] 9.1 mg/dL 8.4 - 10. 2 mg/dL [facility] Chloride [Moles/Vol] 105 mmol/L 98 - 10 8 mmol/L [facility] Creatinine [Mass/Vol] 0.52 mg/dL Low 0.60 - 1.20 mg/dL [facility] GFR/1.73 sq M.predicted CKD-EPI (S/P/Bld) [Vol rate/Area] 99 - PINF [facility] Comment on above: Estimated GFR was ca lculated using the 2020 CKD-EPI creatinine equation. Glucose [Mass/Vol] 104 mg/dL High 65 - 99 mg/dL [facility] HCO3 [Moles/Vol] 32 mmol/L 21 - 32 mmol/L [facility] Interpretation and review of laboratory results Abnormal [facility] Potassium [Moles/Vol] 3.5 mmol/L 3.5 - 5.1 mmol/L [facility] Sodium [Moles/Vol] 141 mmol/L 135 - 145 mmol/L [facility] Urea nitrogen [Mass/Vol] 12 mg/dL 8 - 25 mg/dL [facility] Urea nitrogen/Creatinine [Mass ratio] 23.1 mg/mg High 10.0 - 20.0 [facility] y Services has implemented the eGFR calculation approach that does not have a coefficient for race that conforms to the NKF-ASN Task Force Recommendations. [facility] Anion gap [Moles/Vol] 10 mmol/L 10 - 20 mmol/L [facility] Calcium [Mass/Vol] 9.2 mg/dL 8.4 - 10. 2 mg/dL [facility] Chloride [Moles/Vol] 104 mmol/L 98 - 10 8 mmol/L [facility] Creatinine [Mass/Vol] 0.58 mg/dL Low 0.60 - 1.20 mg/dL [facility] GFR/1.73 sq M.predicted CKD-EPI (S/P/Bld) [Vol rate/Area] 97 - PINF [facility] Comment on above: Estimated GFR was ca lculated using the 2020 CKD-EPI creatinine equation. Glucose [Mass/Vol] 224 mg/dL High 65 - 99 mg/dL [facility] HCO3 [Moles/Vol] 28 mmol/L 21 - 32 mmol/L [facility] Interpretation and review of laboratory results Abnormal [facility] Potassium [Moles/Vol] 4.1 mmol/L 3.5 - 5.1 mmol/L [facility] Sodium [Moles/Vol] 138 mmol/L 135 - 145 mmol/L [facility] Urea nitrogen [Mass/Vol] 15 mg/dL 8 - 25 mg/dL [facility] Urea nitrogen/Creatinine [Mass ratio] 25.9 mg/mg High 10.0 - 20.0 [facility] has implemented the eGFR calculation approach that does not have a coefficient for race that conforms to the NKF-ASN Task Force Recommendations. [facility] Anion gap [Moles/Vol] 13 mmol/L 10 - 20 mmol/L [facility] Calcium [Mass/Vol] 9.3 mg/dL 8.4 - 10. 2 mg/dL [facility] Chloride [Moles/Vol] 102 mmol/L 98 - 10 8 mmol/L [facility] Creatinine [Mass/Vol] 0.73 mg/dL 0.60 - 1.20 mg/dL [facility] GFR/1.73 sq M.predicted CKD-EPI (S/P/Bld) [Vol rate/Area] 88 - PINF [facility] Comment on above: Estimated GFR was ca lculated using the 2020 CKD-EPI creatinine equation. Glucose [Mass/Vol] 394 mg/dL High 65 - 99 mg/dL [facility] HCO3 [Moles/Vol] 27 mmol/L 21 - 32 mmol/L [facility] Interpretation and review of laboratory results Abnormal [facility] Potassium [Moles/Vol] 3.5 mmol/L 3.5 - 5.1 mmol/L [facility] Sodium [Moles/Vol] 138 mmol/L 135 - 145 mmol/L [facility] Urea nitrogen [Mass/Vol] 14 mg/dL 8 - 25 mg/dL [facility] Urea nitrogen/Creatinine [Mass ratio] 19.2 mg/mg 10.0 - 20.0 [facility] has implemented the eGFR calculation approach that does not have a coefficient for race that conforms to the NKF-ASN Task Force Recommendations. [facility] Beta hydroxybutyrate [Moles/ Vol]on 06-07-2022 Interpretation and review of laboratory results Abnormal [facility] Interpretation and review of laboratory results Normal [facility] Interpretation and review of laboratory results Normal [facility] Interpretation and review of laboratory results Normal [facility] Beta-Hydroxybutyrateon 06-07 Beta hydroxybutyrate [Moles/Vol] 0.9 mmol/L High 0.0 - 0.3 mmol/L [facility] Beta hydroxybutyrate [Moles/Vol] mmol/L 0.0 - 0.3 mmol/L [facility] Beta hydroxybutyrate [Moles/Vol] mmol/L 0.0 - 0.3 mmol/L [facility] Beta hydroxybutyrate [Moles/Vol] 0.1 mmol/L 0.0 - 0.3 mmol/L [facility] CBC Auto Differentialon 05-16 Basophils (Bld) [#/Vol] 0.03 10*3/uL [facility] Basophils/100 WBC (Bld) 0.3 % [facility] Eosinophils (Bld) [#/Vol] 0.07 10*3/uL [facility] Eosinophils/100 WBC (Bld) 0.6 % [facility] Erythrocyte distribution width (RBC) [Entitic vol] 12.5 % 11.6 - 14.8 % [facility] Hematocrit (Bld) [Volume fraction] 43.3 % 36.0 - 46.0 % [facility] Hemoglobin (Bld) [Mass/Vol] 14.7 g/dL 12.0 - 16.0 g/dL [facility] Immature granulocytes (Bld) [#/Vol] 0.07 10*3/uL [facility] Immature granulocytes/100 WBC (Bld) 0.60 % [facility] Comment on above: The IG parameter is the percentage of metamyelocytes, myelocytes and promyelocytes. An immature granulocyte count (IG) of 1% or more suggests the possibility of infection, an IG count of 3% is very likely related to an infection. Interpretation and review of laboratory results Abnormal [facility] Lymphocytes (Bld) [#/Vol] 2.47 10*3/uL [facility] Lymphocytes/100 WBC (Bld) 22.7 % [facility] MCH (RBC) [Entitic mass] 29.2 pg 26.0 - 34.0 pg [facility] MCHC (RBC) [Mass/Vol] 33.9 g/dL 31.0 - 37.0 g/dL [facility] MCV (RBC) [Entitic vol] 85.9 fL 80.0 - 100.0 fL [facility] Monocytes (Bld) [#/Vol] 0.73 10*3/uL [facility] Monocytes/100 WBC (Bld) 6.7 % [facility] Neutrophils (Bld) [#/Vol] 7.49 10*3/uL High [facility] Neutrophils/100 WBC (Bld) 69.1 % [facility] Nucleated RBC (Bld) [#/Vol] 0.00 10*3/uL [facility] Nucleated RBC/100 WBC (Bld) [Ratio] 0.0 % [facility] Platelet mean volume (Bld) [Entitic vol] 10.5 fL 9.4 - 12.4 fL [facility] Platelets (Bld) [#/Vol] 182 10*3/uL [facility] RBC (Bld) [#/Vol] 5.04 10*6/uL [facility]alth WBC (Bld) [#/Vol] 10.86 10*3/uL [facility] Comprehensive metabolic 2000 panelon 06-07-2022 Albumin [Mass/Vol] 2.9 g/dL Low 3.2 - 5.2 g/dL [facility] ALP [Catalytic activity/Vol] 69 U/L 40 - 150 U/L [facility] ALT [Catalytic activity/Vol] 20 U/L 14 - 65 U/L [facility] Anion gap [Moles/Vol] 10 mmol/L 10 - 20 mmol/L [facility] AST [Catalytic activity/Vol] 17 U/L 0 - 45 U/L [facility] Bilirubin [Mass/Vol] 0.5 mg/dL 0.0 - 1 .3 mg/dL [facility] Calcium [Mass/Vol] 9.2 mg/dL 8.4 - 10. 2 mg/dL [facility] Chloride [Moles/Vol] 104 mmol/L 98 - 10 8 mmol/L [facility] Creatinine [Mass/Vol] 0.58 mg/dL Low 0.60 - 1.20 mg/dL [facility] GFR/1.73 sq M.predicted CKD-EPI (S/P/Bld) [Vol rate/Area] 97 - PINF [facility] Comment on above: Estimated GFR was ca lculated using the 2020 CKD-EPI creatinine equation. Glucose [Mass/Vol] 224 mg/dL High 65 - 99 mg/dL [facility] HCO3 [Moles/Vol] 28 mmol/L 21 - 32 mmol/L [facility] Interpretation and review of laboratory results Abnormal [facility] Potassium [Moles/Vol] 4.1 mmol/L 3.5 - 5.1 mmol/L [facility] Protein [Mass/Vol] 5.5 g/dL Low 6.0 - 8.0 g/dL [facility] Sodium [Moles/Vol] 138 mmol/L 135 - 145 mmol/L [facility] Urea nitrogen [Mass/Vol] 15 mg/dL 8 - 25 mg/dL [facility] Urea nitrogen/Creatinine [Mass ratio] 25.9 mg/mg High 10.0 - 20.0 [facility] has implemented the eGFR calculation approach that does not have a coefficient for race that conforms to the NKF-ASN Task Force Recommendations. [facility] Glucose (Bld) [Mass/Vol]on 08-08-2021 Glucose [Mass/Vol] 120 mg/dL High 65 - 99 mg/dL [facility] Interpretation and review of laboratory results Abnormal [facility] Glucose [Mass/Vol] 169 mg/dL High 65 - 99 mg/dL [facility] Interpretation and review of laboratory results Abnormal [facility] Glucose [Mass/Vol] 149 mg/dL High 65 - 99 mg/dL [facility] Interpretation and review of laboratory results Abnormal [facility] Glucose [Mass/Vol] 203 mg/dL High 65 - 99 mg/dL [facility] Interpretation and review of laboratory results Abnormal [facility] Glucose [Mass/Vol] 266 mg/dL High 65 - 99 mg/[facility] Interpretation and review of laboratory results Abnormal [facility] Glucose [Mass/Vol] 344 mg/dL High 65 - 99 mg/dL [facility] Interpretation and review of laboratory results Abnormal [facility] Glucose [Mass/Vol] 283 mg/dL High 65 - 99 mg/dL [facility] Interpretation and review of laboratory results Abnormal [facility] Glucose [Mass/Vol] 236 mg/dL High 65 - 99 mg/dL [facility] Interpretation and review of laboratory results Abnormal [facility] Glucose [Mass/Vol] 138 mg/dL High 65 - 99 mg/dL [facility] Interpretation and review of laboratory results Abnormal [facility] Glucose [Mass/Vol] 138 mg/dL High 65 - 99 mg/dL [facility] Interpretation and review of laboratory results Abnormal [facility] Glucose [Mass/Vol] 204 mg/dL High 65 - 99 mg/dL [facility] Interpretation and review of laboratory results Abnormal [facility] Glucose [Mass/Vol] 253 mg/dL High 65 - 99 mg/dL [facility] Interpretation and review of laboratory results Abnormal [facility] Glucose [Mass/Vol] 221 mg/dL High 65 - 99 mg/dL [facility] Interpretation and review of laboratory results Abnormal [facility] Glucose [Mass/Vol] 182 mg/dL High 65 - 99 mg/dL [facility] Interpretation and review of laboratory results Abnormal [facility] Glucose [Mass/Vol] 230 mg/dL High 65 - 99 mg/dL [facility] Interpretation and review of laboratory results Abnormal [facility] Glucose [Mass/Vol] 308 mg/dL High 65 - 99 mg/dL [facility] Interpretation and review of laboratory results Abnormal [facility] HbA1c (Bld) [Mass fraction]O rdered By: Lolis Hope on 06-07-2022 Average glucose Estimated from glycated hemoglobin (Bld) [Mass/Vol] 346 mg/dL High 68 - 114 mg/dL [facility] Interpretation and review of laboratory results Abnormal [facility] Normal: 4.0% - 5.6% Increased risk for diabetes: 5.7% - 6.4% Diabetes: >= 6.5% Pediatrics: No established reference range Estimated average glucose: 68-114 mg/dL [facility] Hemoglobin [id number] By: Dalia Hope on 06-07-2022 HbA1c (Bld) [Mass fraction] 13.7 % High 4.0 - 5.6 % [facility] Lipid 1996 panelon 2 Cholesterol [Mass/Vol] 187 mg/dL 100 - 199 mg/dL [facility] Comment on above: National Cholesterol Education Program Guidelines: Cholesterol Desirable: <200 mg/dL Borderline High: 200-239 mg/dL High: greater than or equal to 240 mg/dL Cholesterol in HDL [Mass/Vol] 62 mg/dL 40 - 59 mg/dL [facility] Comment on above: National Cholesterol Education Program Guidelines: HDL Cholesterol Low: <40 mg/dL Near Optimal: 40-59 mg/dL High: greater than or equal to 60 mg/dL Cholesterol in LDL [Mass/Vol] 106 mg/dL 10 - 130 mg/dL [facility] Comment on above: National Cholesterol Education Program Guidelines: LDL Cholesterol Optimal: <100 mg/dL Near Optimal/above Optimal: 100-129 mg/dL Borderline High: 130-159 mg/dL High: 160-189 mg/dL Very High: greater than or equal to 190 mg/dL Cholesterol non HDL [Mass/Vol] 125 mg/dL [facility] Comment on above: National Cholesterol Education Program Guidelines: NON HDL Cholesterol Desirable: <130 mg/dL Borderline High: 130-159 mg/dL High: 160-189 mg/dL Very High: > or = 190 mg/dL Cholesterol.total/Ch olesterol in HDL [Mass ratio] 3.0 {ratio} ratio [facility] Comment on above: Female Cholesterol/H DL Ratio: Average risk: 4.4 1/2 average risk: 3.3 2 x average risk: 7.1 Triglyceride [Mass/Vol] 97 mg/dL 30 - 150 mg/dL [facility] Comment on above: National Cholesterol Education Program Guidelines: Triglyceride Normal: <150 mg/dL Borderline High: 150-199 mg/dL High: 200-499 mg/dL Very High: greater than or equal to 500 mg/dL [facility] MR Brain Without Contraston 06-07-2022 1. No acute ischemia. 2. Left parietal convexity extra-axial dural-based mass likely relating to meningioma detailed above with minimal mass effect on adjacent brain parenchyma without substantial edema. 3. Mild supratentorial white matter change which most commonly relates to sequela of small vessel disease. Workstation ID: [id number] [employer] EXAMINATION: MR BRAIN WITHOUT CONTRAST HISTORY: Neuro [...] replacing lesion suggestive of neoplasm. Orbits: Bilateral [place] ocular lens replacements. Paranasal sinuses: Imaged portions [...] the major intracranial arteries and dural sinuses. [employer] [facility] Reyes Tayloria Radha, DO - [...] replacing lesion suggestive of neoplasm. Orbits: Bilateral [place] ocular lens replacements. Paranasal sinuses: Imaged portions [...] of small vessel disease. Workstation ID: [id number] [facility] Radiology Study observation (narrative) [facility] MR Brain Without ContrastOrd ered By: Triny Taylor on 06-07-2022 [facility] Work Phone: Magnesium Levelon 06-07-2022 Magnesium [Mass/Vol] 2.1 mg/dL 1.6 - 2 .4 mg/dL [facility] Magnesium [Mass/Vol]on 06-07 Interpretation and review of laboratory results Normal [facility] Obtain venous blood gases an d performon 06-07-2022 [facility] Phosphate [Mass/Vol]on 06-07 Interpretation and review of laboratory results Normal [facility] Interpretation and review of laboratory results Abnormal [facility] Phosphoruson 06-07-2022 Phosphate [Mass/Vol] 2.8 mg/dL 2.8 - 4 .1 mg/dL [facility] Phosphate [Mass/Vol] 2.6 mg/dL Low 2.8 - 4 .1 mg/dL [facility] Basic metabolic 2000 panelOr dered By: Joana Reeves on 06-06-2022 Anion gap [Moles/Vol] 13 mmol/L 10 - 20 mmol/L [facility] Calcium [Mass/Vol] 9.3 mg/dL 8.4 - 10. 2 mg/dL [facility] Chloride [Moles/Vol] 101 mmol/L 98 - 10 8 mmol/L [facility] Creatinine [Mass/Vol] 0.72 mg/dL 0.60 - 1.20 mg/dL [facility] GFR/1.73 sq M.predicted CKD-EPI (S/P/Bld) [Vol rate/Area] 90 - PINF [facility] Comment on above: Estimated GFR was ca lculated using the 2020 CKD-EPI creatinine equation. Glucose [Mass/Vol] 458 mg/dL Critically high 65 - 99 mg/d L [facility] HCO3 [Moles/Vol] 28 mmol/L 21 - 32 mmol/L [facility] Interpretation and review of laboratory results Abnormal [facility] Potassium [Moles/Vol] 3.7 mmol/L 3.5 - 5.1 mmol/L [facility] Sodium [Moles/Vol] 138 mmol/L 135 - 145 mmol/L [facility] Urea nitrogen [Mass/Vol] 15 mg/dL 8 - 25 mg/dL [facility] Urea nitrogen/Creatinine [Mass ratio] 20.8 mg/mg High 10.0 - 20.0 [facility] has implemented the eGFR calculation approach that does not have a coefficient for race that conforms to the NKF-ASN Task Force Recommendations. [facility] Basic metabolic 2000 panelOr dered By: Danelle Plascencia on 06-06-2022 Anion gap [Moles/Vol] 13 mmol/L 10 - 20 mmol/L [facility] Calcium [Mass/Vol] 10.2 mg/dL 8.4 - 10. 2 mg/dL [facility] Chloride [Moles/Vol] 98 mmol/L 98 - 10 8 mmol/L [facility] Creatinine [Mass/Vol] 0.84 mg/dL 0.60 - 1.20 mg/dL [facility] GFR/1.73 sq M.predicted CKD-EPI (S/P/Bld) [Vol rate/Area] 74 - PINF [facility] Comment on above: Estimated GFR was ca lculated using the 2020 CKD-EPI creatinine equation. Glucose [Mass/Vol] 660 mg/dL Critically high 65 - 99 mg/d L [facility] HCO3 [Moles/Vol] 27 mmol/L 21 - 32 mmol/L [facility] Interpretation and review of laboratory results Abnormal [facility] Potassium [Moles/Vol] 4.1 mmol/L 3.5 - 5.1 mmol/L [facility] Sodium [Moles/Vol] 134 mmol/L Low 135 - 145 mmol/L [facility] Urea nitrogen [Mass/Vol] 19 mg/dL 8 - 25 mg/dL [facility] Urea nitrogen/Creatinine [Mass ratio] 22.6 mg/mg High 10.0 - 20.0 [facility] has implemented the eGFR calculation approach that does not have a coefficient for race that conforms to the NKF-ASN Task Force Recommendations. [facility] Beta hydroxybutyrate [Moles/ Vol]on 06-06-2022 Interpretation and review of laboratory results Abnormal [facility] Beta-Hydroxybutyrateon 06-06 Beta hydroxybutyrate [Moles/Vol] 1.0 mmol/L High 0.0 - 0.3 mmol/L [facility] CBC Auto Differentialon 05-16 Basophils (Bld) [#/Vol] 0.04 10*3/uL [facility] Basophils/100 WBC (Bld) 0.4 % [facility] Eosinophils (Bld) [#/Vol] 0.03 10*3/uL [facility] Eosinophils/100 WBC (Bld) 0.3 % [facility] Erythrocyte distribution width (RBC) [Entitic vol] 12.7 % 11.6 - 14.8 % [facility] Hematocrit (Bld) [Volume fraction] 45.1 % 36.0 - 46.0 % [facility] Hemoglobin (Bld) [Mass/Vol] 16.1 g/dL High 12.0 - 16.0 g/dL [facility] Immature granulocytes (Bld) [#/Vol] 0.05 10*3/uL [facility] Immature granulocytes/100 WBC (Bld) 0.50 % [facility] Comment on above: The IG parameter is the percentage of metamyelocytes, myelocytes and promyelocytes. An immature granulocyte count (IG) of 1% or more suggests the possibility of infection, an IG count of 3% is very likely related to an infection. Interpretation and review of laboratory results Abnormal [facility] Lymphocytes (Bld) [#/Vol] 1.37 10*3/uL [facility] Lymphocytes/100 WBC (Bld) 13.4 % [facility] MCH (RBC) [Entitic mass] 29.8 pg 26.0 - 34.0 pg [facility] MCHC (RBC) [Mass/Vol] 35.7 g/dL 31.0 - 37.0 g/dL [facility] MCV (RBC) [Entitic vol] 83.5 fL 80.0 - 100.0 fL [facility] Monocytes (Bld) [#/Vol] 0.51 10*3/uL [facility] Monocytes/100 WBC (Bld) 5.0 % [facility] Neutrophils (Bld) [#/Vol] 8.23 10*3/uL High [facility] Neutrophils/100 WBC (Bld) 80.4 % [facility] Nucleated RBC (Bld) [#/Vol] 0.00 10*3/uL [facility] Nucleated RBC/100 WBC (Bld) [Ratio] 0.0 % [facility] Platelet mean volume (Bld) [Entitic vol] 10.2 fL 9.4 - 12.4 fL [facility] Platelets (Bld) [#/Vol] 157 10*3/uL [facility] RBC (Bld) [#/Vol] 5.40 10*6/uL [facility] ealth WBC (Bld) [#/Vol] 10.23 10*3/uL [facility] CT Head Without Contrast (St ro)on 06-06-2022 1. No acute intracranial abnormality. 2. Atherosclerotic calcification and chronic microvascular ischemia. zerved/MagTag Workstation ID: [id number] [employer] EXAMINATION: CT BRAIN WITHOUT CONTRAST HISTORY: Right-sided [...] SKULL BASE/CALVARIUM: Normal. EXTRACRANIAL SOFT TISSUES: Normal. [employer] Paras Mancilla MD - 06/06/2022 EXAMINATION: CT [...] chronic microvascular ischemia. SAY/mkv Workstation ID: [id number] [facility] Radiology Study observation (narrative) [facility] CT Head Without Contrast (St ro)Ordered By: Paras Mancilla on 06-06-2022 [facility] Work Phone: CTA Head vessels and Neck ve ssels W contrast Marj 06-06-2022 No large vessel occlusion. A focal moderate stenosis each in the distal right P2 and left P3. Carotids and vertebral arteries show no significant stenosis or dissection. Workstation ID: [id number] [employer] [facility] EXAMINATION: CT ANGIOGRAM HEAD NECK [...] images were generated on a separate independent [employer] workstation. NASCET criteria were used to assess [...] carotids show no significant stenosis or dissection. [employer] Edmond Frye MD - 06/06/2022 EXAMINATION: CT [...] images were generated on a separate independent [employer] workstation. NASCET criteria were used to assess [...] significant stenosis or dissection. Workstation ID: [id number] [facility] Radiology Study observation (narrative) [facility] CTA Head vessels and Neck ve ssels W contrast IVOrdered By: Edmond Barker on 06-06-2022 [facility] Work Phone: ECG 12 Leadon 06-06-2022 Jaime [...] segments normal T Waves: T waves normal [facility] Glucose (Bld) [Mass/Vol]on 1 08-07-2021 Glucose [Mass/Vol] 444 mg/dL Critically high 65 - 99 mg/d L [facility] Interpretation and review of laboratory results Abnormal [facility] Critical result acte d upon time of test. Test performed at bedside. [facility] Glucose [Mass/Vol] 448 mg/dL Critically high 65 - 99 mg/d L [facility] Interpretation and review of laboratory results Abnormal [facility] Critical result acte d upon time of test. Test performed at bedside. [facility] INR Coag (PPP) [Relative samm e]on 06-06-2022 Interpretation and review of laboratory results Normal [facility] PT Coag (PPP) [Time] 12.9 s [facility] During the induction phase of oral anticoagulation, the INR may not reflect the anticoagulation status of the patient. Therapeutic ranges for INR's are: Most clinical situations: INR 2.0-3.0 Mechanical Prosthetic Valve: INR 2.5-3.5 Critical: INR >5.0 [facility] Influenza virus A and B RNA and SARS-CoV-2 (COVID-19) N gene panel FINA+probe (Resp)Ordered By: Krystal Floyd on 06-06-2022 FLUAV RNA FINA+probe Ql (Unsp spec) Not detected Not Detected [facility] FLUBV RNA FINA+probe Ql (Unsp spec) Not detected Not Detected [facility] Interpretation and review of laboratory results Normal [facility] SARS-CoV-2 (COVID-19) RNA FINA+probe Ql (Resp) Not detected Not Detected [facility] This test was performed under the [facility]'s Emergency Use Authorization (EUA). Testing was performed [...] the following links: For Healthcare Providers: https://www.fda.gov/m edia/313991/download For Patients: https://www.fda.gov/m edia/552741/download [facility] Laboratory - Chemistry and C hemistry - challengeon 06-06-2022 Base excess Calc (BldV) [Moles/Vol] 4.2 mmol/L High -2.0 - 2.0 [facility] Calcium.ionized [Mass/Vol] 4.4 mg/dL Low 4.5 - 5.3 mg/dL [facility] Carboxyhemoglobin (BldA) [Mass fraction] 2.4 High NINF [facility] Comment on above: Reference Ranges: Suburb Non-smokers: <1.5% Smokers: 1.5-5.0% Heavy Smokers: 5.0-9.0% Chloride [Moles/Vol] 100 mmol/L 98 - 10 8 mmol/L [facility] CO2 (BldV) [Partial pressure] 46.1 mm[Hg] [facility] Glucose post fast [Mass/Vol] 372 mg/dL High 65 - 99 mg/dL [facility] HCO3 (Bld) [Moles/Vol] 29.7 mmol/L High 24.0 - 28.0 mmol/L [facility] Lactate [Moles/Vol] 1.2 mmol/L 0.6 - 2. 0 mmol/L [facility] Methemoglobin (BldA) [Mass fraction] 0.7 % 0.0 - 2.0 % [facility] Oxygen (BldV) [Partial pressure] 29 mm[Hg] [facility] Comment on above: Caution: pO2 referen ce ranges for some specimen types are lower than the measuring range of the instrument. Oxyhemoglobin (BldA) [Mass fraction] 54.5 % No established reference range [facility] pH (BldV) 7.42 [pH] 7.32 - 7.42 [facility] Potassium [Moles/Vol] 3.8 mmol/L 3.5 - 5.1 mmol/L [facility] Sodium [Moles/Vol] 137 mmol/L 135 - 145 mmol/L [facility] Laboratory - Hematology and Cell countson 06-06-2022 Hematocrit (BldA) [Volume fraction] 49.1 % High 36.0 - 46.0 % [facility] Hemoglobin (Bld) [Mass/Vol] 16.0 g/dL 12.0 - 16.0 g/dL [facility] Laboratory - Specimen inform ationon 06-06-2022 Specimen source Nom (Unsp spec) Not specified [facility] No Panel Informationon 06-06 Interpretation and review of laboratory results Abnormal [facility] PT/INRon 06-06-2022 INR Coag (PPP) [Relative time] 1.0 {INR} 0.8 - 1.1 [facility] Phosphate [Mass/Vol]on 06-06 Interpretation and review of laboratory results Normal [facility] Phosphoruson 06-06-2022 Phosphate [Mass/Vol] 3.0 mg/dL 2.8 - 4 .1 mg/dL [facility] Troponinon 06-06-2022 Troponin I 8 ng/L NINF - 59 ng/L [facility] Troponin I Interpretation Normal [facility] UrinalysisOrdered By: Piedad Cruz on 06-06-2022 Bacteria Auto Ql (U) Many Abnormal None Seen /hpf [facility] Bilirubin Ql (U) Negative Negative [facility] th Clarity Refractometry automated (U) Clear Clear [facility] Color (U) Yellow Colorless, Yellow [facility] Epithelial cells.squamous Auto (Urine sed) [#/Area] [facility] Glucose Auto test strip (U) [Mass/Vol] >=500 Abnormal Negative mg/dL [facility] Hemoglobin Auto test strip Ql (U) Negative Negative [facility] Interpretation and review of laboratory results Abnormal [facility] Ketones (U) [Mass/Vol] Trace Abnormal Negative mg/dL [facility] Leukocyte esterase Auto test strip Ql (U) Negative Negative [facility] Nitrite Auto test strip Ql (U) Positive Abnormal Negative [facility] pH (U) 6.5 [pH] 5.0 - 7.0 [facility] Protein (U) [Mass/Vol] Negative Negative mg/dL [facility] RBC Auto (Urine sed) [#/Area] 1 [facility] Specific gravity (U) [Rel density] 1.032 High 1.005 - 1.025 [facility] Urobilinogen (U) [Mass/Vol] mg/dL NINF - 2.0 mg/dL [facility] WBC Auto (Urine sed) [#/Area] 9 High [facility] Microscopic examination is performed on all urinalysis samples and only positive findings are reported. The test for blood on the chemical analytic portion of urinalysis may also be positive due to hemoglobinuria and myoglobinuria and if red blood cells are present they are quantified by microscopic examination. [facility] Vital signson 06-06-2022 Oxygen saturation in Venous blood 56.2 % 40.0 - 70.0 % [facility] XR Chest 1 Viewon 06-06-2022 No acute findings given the low lung volumes, portable technique and patient rotation. DPR/alt Workstation ID: [id number] [employer] RIS EXAMINATION: XR CHEST PA/AP 06/06/2022 7:07 [...] is decreased mineralization of the osseous structures. [facility] Tobias Gonzalez MD - 06/06/2022 EXAMINATION: XR [...] and patient rotation. DPR/alt Workstation ID: [id number] [facility] Radiology Study observation (narrative) [facility] XR Chest 1 ViewOrdered By: Burt Gonzalez on 06-06-2022 [facility] Work Phone: CBC WITH AUTO DIFFERENTIALon 04-18-2020 Basophils (Bld) [#/Vol] 0.02 10*3/uL [facility] Basophils/100 WBC (Bld) 0.2 % [facility] Eosinophils (Bld) [#/Vol] 0.03 10*3/uL [facility] Eosinophils/100 WBC (Bld) 0.3 % [facility] Erythrocyte distribution width (RBC) [Entitic vol] 13.5 % 11.6 - 14.8 % [facility] Hematocrit (Bld) [Volume fraction] 43.3 % 36 - 46 % [facility] Hemoglobin (Bld) [Mass/Vol] 14.6 g/dL 12 - 16 g/dL [facility] Immature granulocytes (Bld) [#/Vol] 0.03 10*3/uL [facility] Immature granulocytes/100 WBC (Bld) 0.30 % [facility] Comment on above: The IG parameter is the percentage of metamyelocytes, myelocytes and promyelocytes. An immature granulocyte count (IG) of 1% or more suggests the possibility of infection, an IG count of 3% is very likely related to an infection. Interpretation and review of laboratory results Abnormal [facility] Lymphocytes (Bld) [#/Vol] 2.35 10*3/uL [facility] Lymphocytes/100 WBC (Bld) 26.2 % [facility] MCH (RBC) [Entitic mass] 29.1 pg 26 - 34 pg [facility] MCHC (RBC) [Mass/Vol] 33.7 g/dL 31 - 37 g/dL [facility] MCV (RBC) [Entitic vol] 86.3 fL 80 - 100 fL [facility] Monocytes (Bld) [#/Vol] 0.56 10*3/uL [facility] Monocytes/100 WBC (Bld) 6.2 % [facility] Neutrophils (Bld) [#/Vol] 5.99 10*3/uL [facility] Neutrophils/100 WBC (Bld) 66.8 % [facility] Nucleated RBC (Bld) [#/Vol] 0.00 10*3/uL [facility] Nucleated RBC/100 WBC (Bld) [Ratio] 0.0 % [facility] Platelet mean volume (Bld) [Entitic vol] 10.1 fL 9.4 - 12.4 fL [facility] Platelets (Bld) [#/Vol] 148 10*3/uL Low [facility] RBC (Bld) [#/Vol] 5.02 10*6/uL [facility] WBC (Bld) [#/Vol] 8.98 10*3/uL [facility] ECHOCARDIOGRAM COMPLETEon Aortic valve area 2.84254 cm [facility] AV mean gradient 4 mmHg [facility] EF 56.1119 % [facility] Interface, Rad In [facility] Xper Echopacs - 04/18/2020 2:08 PM EST Patient Info Name: HILARIA LYONS Age: 70 years : 1950 Gender: Female Ht: 155 cm Wt: 82 kg BSA: 1.91 m2 HR: 94 bpm BP: 168 / 96 mmHg Heart Rhythm: Tachycardia, Sinus Rhythm Technical Quality: Fair Exam Date: 04/18/2020 9:42 AM Patient Status: Inpatient Game Technician: Laila Márquez RCDS Exam Type: ECHOCARDIOGRAM COMPLETE Study Info Indications I50.9 - Heart failure, unspecified Referring Physician: KADEEM Hernandez KHALDOON, ; [id number] BMI: 34.01 kg/m2 Summary 1. Moderate left [...] mmHg MV VTI 18.00 cm MV Decel [place] 383.00 cm/s2 MV PHT 46 ms MV [...] 16.00-34.00 RA Dimensions ------- RA Systolic Major [place] Length (4C) 4.63 cm <=5.30 RA Area (4C) 14.20 cm2 <=18.00 RA Area (4C) Index 7.43 cm2/m2 RA ESV (4C MOD) 34.50 ml 15.00-27.00 RA ESV Index (4C MOD) 18.05 ml/m2 <=27.00 Report Signatures Finalized by Yuly Wharton MD on 04/18/2020 02:08 PM [facility] Patient Info Name: HILARIA LYONS Age: 70 years : 1950 Gender: Female Ht: 155 cm Wt: 82 kg BSA: 1.91 m2 HR: 94 bpm BP: 168 / 96 mmHg Heart Rhythm: Tachycardia, Sinus Rhythm Technical Quality: Fair Exam Date: 04/18/2020 9:42 AM Patient Status: Inpatient Game Technician: Laila Márquez RCDS Exam Type: ECHOCARDIOGRAM COMPLETE Study Info Indications I50.9 - Heart failure, unspecified Referring Physician: [id number] Crowley KHALDOON, ; [id number] BMI: 34.01 kg/m2 Summary 1. Moderate left [...] mmHg MV VTI 18.00 cm MV Decel [place] 383.00 cm/s2 MV PHT 46 ms MV [...] 16.00-34.00 RA Dimensions ------- RA Systolic Major [place] Length (4C) 4.63 cm <=5.30 RA Area (4C) 14.20 cm2 <=18.00 RA Area (4C) Index 7.43 cm2/m2 RA ESV (4C MOD) 34.50 ml 15.00-27.00 RA ESV Index (4C MOD) 18.05 ml/m2 <=27.00 Report Signatures Finalized by Yuly Wharton MD on 04/18/2020 02:08 PM [facility] EKGon 04-18-2020 Ordered by an unspecified provider. [facility] Hemoglobin A1con 04-18-2020 Average glucose Estimated from glycated hemoglobin mass conc (Bld) 272 mg/dL High 68 - 114 mg/dL [facility] HbA1c (Bld) [Mass fraction] 11.1 % High 4 - 5.6 % [facility] Interpretation and review of laboratory results Abnormal [facility] Normal: 4.0% - 5.6% Increased risk for diabetes: 5.7% - 6.4% Diabetes: >= 6.5% Pediatrics: No established reference range Estimated average glucose: 68-114 mg/dL [facility] Magnesiumon 04-18-2020 Magnesium [Mass/Vol] 1.8 mg/dL 1.6 - 2 .4 mg/dL [facility] Otheron 04-18-2020 Interpretation and review of laboratory results Normal [facility] POC Glucoseon 04-18-2020 Glucose [Mass/Vol] 247 mg/dL High 65 - 99 mg/dL [facility] Interpretation and review of laboratory results Abnormal [facility] Glucose [Mass/Vol] 243 mg/dL High 65 - 99 mg/dL [facility] Interpretation and review of laboratory results Abnormal [facility] Renal Function Panelon 04-18 Albumin [Mass/Vol] 2.7 g/dL Low 3.2 - 5.2 g/dL [facility] Anion gap [Moles/Vol] 11 mmol/L 10 - 20 mmol/L [facility] Calcium [Mass/Vol] 8.1 mg/dL Low 8.4 - 10. 2 mg/dL [facility] Chloride [Moles/Vol] 108 mmol/L 98 - 10 8 mmol/L [facility] Creatinine [Mass/Vol] 0.46 mg/dL Low 0.60 - 1.20 [facility] GFR/1.73 sq M predicted among non-blacks MDRD (S/P/Bld) [Vol rate/Area] The eGFR should be used for monitoring renal function only and not for medication dosing. [facility] GFR/1.73 sq M.predicted CKD-EPI (S/P/Bld) [Vol rate/Area] 102 >=60 mL/min/1.73 m2 [facility] Glucose [Mass/Vol] 270 mg/dL High 65 - 99 mg/dL [facility] HCO3 [Moles/Vol] 25 mmol/L 21 - 32 mmol/L [facility] Interpretation and review of laboratory results Abnormal [facility] Phosphate [Mass/Vol] 2.4 mg/dL Low 2.8 - 4 .1 mg/dL [facility] Potassium [Moles/Vol] 3.6 mmol/L 3.5 - 5.1 mmol/L [facility] Sodium [Moles/Vol] 140 mmol/L 135 - 145 mmol/L [facility] Urea nitrogen [Mass/Vol] 12 mg/dL 8 - 25 mg/dL [facility] Urea nitrogen/Creatinine [Mass ratio] 26.1 mg/mg High [facility] TROPONIN 04-18-2020 Interpretation and review of laboratory results Abnormal [facility] Troponin I.cardiac [Mass/Vol] ng/mL Critically high < -/+ 8 change ng/L [facility] Troponin I.cardiac [Mass/Vol] 29 ng/L <=45 [facility] Troponin I.cardiac [Mass/Vol] Possible acute cardiac injury. Consider additional troponin testing and correlate with clinical factors. [facility] TSHon 04-18-2020 TSH Qn 0.99 m[IU]/L [facility] CBC WITH AUTO DIFFERENTIALon 04-17-2020 Basophils (Bld) [#/Vol] 0.04 10*3/uL [facility] Basophils/100 WBC (Bld) 0.3 % [facility] Eosinophils (Bld) [#/Vol] 0.01 10*3/uL [facility] Eosinophils/100 WBC (Bld) 0.1 % [facility] Erythrocyte distribution width (RBC) [Entitic vol] 13.6 % 11.6 - 14.8 % [facility] Hematocrit (Bld) [Volume fraction] 51.3 % High 36 - 46 % [facility] Hemoglobin (Bld) [Mass/Vol] 17.3 g/dL High 12 - 16 g/dL [facility] Immature granulocytes (Bld) [#/Vol] 0.06 10*3/uL [facility] Immature granulocytes/100 WBC (Bld) 0.40 % [facility] Comment on above: The IG parameter is the percentage of metamyelocytes, myelocytes and promyelocytes. An immature granulocyte count (IG) of 1% or more suggests the possibility of infection, an IG count of 3% is very likely related to an infection. Interpretation and review of laboratory results Abnormal [facility] Lymphocytes (Bld) [#/Vol] 1.63 10*3/uL [facility] Lymphocytes/100 WBC (Bld) 11.7 % [facility] MCH (RBC) [Entitic mass] 28.8 pg 26 - 34 pg [facility] MCHC (RBC) [Mass/Vol] 33.7 g/dL 31 - 37 g/dL [facility] MCV (RBC) [Entitic vol] 85.4 fL 80 - 100 fL [facility] Monocytes (Bld) [#/Vol] 0.73 10*3/uL [facility] Monocytes/100 WBC (Bld) 5.2 % [facility] Neutrophils (Bld) [#/Vol] 11.50 10*3/uL High [facility] Neutrophils/100 WBC (Bld) 82.3 % [facility] Nucleated RBC (Bld) [#/Vol] 0.00 10*3/uL [facility] Nucleated RBC/100 WBC (Bld) [Ratio] 0.0 % [facility] Platelet mean volume (Bld) [Entitic vol] 9.9 fL 9.4 - 12.4 fL [facility] Platelets (Bld) [#/Vol] 175 10*3/uL [facility] RBC (Bld) [#/Vol] 6.01 10*6/uL High [facility] ealth WBC (Bld) [#/Vol] 13.97 10*3/uL [facility] COVID-19, Molecularon 2019 Interpretation and review of laboratory results Normal [facility] SARS-CoV-2 Not Detected Not Detected [facility] Comment on above: This test was perfor med under the FDA's Emergency Use Authorization (EUA). Testing was performed using the [employer] ID NOW COVID-19 assay on the ID NOW platform. This test has not been approved for use in asymptomatic patients and its performance in this patient population has not been evaluated. Negative results do not rule out the presence of SARS-CoV-2/COVID-19. Fact sheets for the EUA can be found at the following links: For Healthcare Providers: https://www.fda.gov/media/248584/download For Patients: https://www.fda.gov/media/598006/download Chem 704-17-2020 Anion gap [Moles/Vol] 11 mmol/L 10 - 20 mmol/L [facility] Chloride [Moles/Vol] 102 mmol/L 98 - 10 8 mmol/L [facility] Creatinine [Mass/Vol] 0.65 mg/dL 0.60 - 1.20 [facility] GFR/1.73 sq M predicted among non-blacks MDRD (S/P/Bld) [Vol rate/Area] The eGFR should be used for monitoring renal function only and not for medication dosing. [facility] GFR/1.73 sq M.predicted CKD-EPI (S/P/Bld) [Vol rate/Area] 91 >=60 mL/min/1.73 m2 [facility] Glucose [Mass/Vol] 247 mg/dL High 65 - 99 mg/dL [facility] HCO3 [Moles/Vol] 27 mmol/L 21 - 32 mmol/L [facility] Interpretation and review of laboratory results Abnormal [facility] Potassium [Moles/Vol] 3.0 mmol/L Low 3.5 - 5.1 mmol/L [facility] Sodium [Moles/Vol] 137 mmol/L 135 - 145 mmol/L [facility] Urea nitrogen [Mass/Vol] 16 mg/dL 8 - 25 mg/dL [facility] Urea nitrogen/Creatinine [Mass ratio] 24.6 mg/mg High [facility] D-DIMER, QUANTITATIVEon Fibrin D-dimer FEU (PPP) [Mass/Vol] 0.49 0.27 - 0.49 mcg/mL FEU [facility] Interpretation and review of laboratory results Normal [facility] A D-dimer concentration of <0.5 micrograms per milliliter FEU is considered a low probability for pulmonary embolus (PE) and deep venous thrombosis (DVT). Results of this test should always be interpreted in conjunction with the patient's medical history,clinical presentation, and other findings. Clinical diagnosis should not be based on the results of the D-dimer alone. [facility] ECG 12-LEADon 04-17-2020 Atrial Rate 116 BPM [facility] P [place] 67 degrees [facility] P-R Interval 148 ms [facility] Q-T Interval 322 ms [facility] QRS Duration 92 ms [facility] QTC Calculation (Bezet) 447 ms [facility] R [place] -3 degrees [facility] T [place] 52 degrees [facility] Ventricular Rate 116 BPM [facility] Sinus tachycardia Otherwise normal ECG ECG Cart Interpretation see physician note for interpretation. Confirmed by Dorie Redman ([id number]) on 04/17/2020 10:59:06 PM [facility] Atrial Rate 149 BPM [facility] P [place] 39 degrees [facility] P-R Interval 132 ms [facility] Q-T Interval 302 ms [facility] QRS Duration 80 ms [facility] QTC Calculation (Bezet) 475 ms [facility] R [place] -2 degrees [facility] T [place] 73 degrees [facility] Ventricular Rate 149 BPM [facility] Sinus tachycardia with Premature atrial complexes Septal infarct , age undetermined Abnormal ECG ECG Cart Interpretation see physician note for interpretation. Confirmed by Dorie Redman ([id number]) on 04/17/2020 4:45:56 PM [facility] Magnesium Levelon 04-17-2020 Interpretation and review of laboratory results Normal [facility] Magnesium [Mass/Vol] 1.8 mg/dL 1.6 - 2 .4 mg/dL [facility] Magnesium [Mass/Vol] 2.0 mg/dL 1.6 - 2 .4 mg/dL [facility] Otheron 04-17-2020 Extra Tube Hold for add-ons. [facility] Comment on above: Auto resulted. Interpretation and review of laboratory results Normal [facility] POC Glucoseon 04-17-2020 Glucose [Mass/Vol] 219 mg/dL High 65 - 99 [facility] Interpretation and review of laboratory results Abnormal [facility] PT/INRon 04-17-2020 INR Coag (PPP) [Relative time] 1.0 {INR} [facility] Interpretation and review of laboratory results Normal [facility] PT Coag (PPP) [Time] 12.8 s [facility] During the induction phase of oral anticoagulation, the INR may not reflect the anticoagulation status of the patient. Therapeutic ranges for INR's are: Most clinical situations: INR 2.0-3.0 Mechanical Prosthetic Valve: INR 2.5-3.5 Critical: INR >5.0 [facility] TROPONINon 04-17-2020 Interpretation and review of laboratory results Abnormal [facility] Troponin I.cardiac [Mass/Vol] 33 ng/L <=45 [facility] Troponin I.cardiac [Mass/Vol] ng/mL Critically high < -/+ 8 change ng/L [facility] Troponin I.cardiac [Mass/Vol] Possible acute cardiac injury. Consider additional troponin testing and correlate with clinical factors. [facility] Interpretation and review of laboratory results Abnormal [facility] Troponin I.cardiac [Mass/Vol] 25 ng/L <=45 [facility] Troponin I.cardiac [Mass/Vol] Possible acute cardiac injury. Consider additional troponin testing and correlate with clinical factors. [facility] Troponin I.cardiac [Mass/Vol] ng/mL Critically high < -/+ 8 change ng/L [facility] Troponin I.cardiac [Mass/Vol] Normal [facility] Troponin I.cardiac [Mass/Vol] ng/mL <=45 ng/L [facility] TSH with Reflex Free T4on TSH Qn 0.80 m[IU]/L [facility] XR Chest 1 Viewon 04-17-2020 Interface, Rad [...] No acute cardiopulmonary abnormalities. Workstation ID: [id number] [facility] No acute cardiopulmonary abnormalities. Workstation ID: [id number] [facility] EXAMINATION: XR CHES T PA/AP HISTORY: ORDERING [...] within normal limits. No acute bony abnormalities. [facility] Basic Metabolic Panelon 07-2 Calcium 9.0 mg/dL Normal 8.4-10.2 [place] [facility] Comment on above: Performed By: #### C HEM8, HBA1C ####Unless otherwise noted, all testing performed by [address] [id number]: [id number] Director: Adonay Hanks M.D. Chloride 101 mmol/L Normal 98-108 [facility] Comment on above: Performed By: #### C HEM8, HBA1C ####Unless otherwise noted, all testing performed by [address] [phone]: [id number] Director: Adonay Hanks M.D. CO2 28 mmol/L Normal 21-32 [facility] Comment on above: Performed By: #### C HEM8, HBA1C ####Unless otherwise noted, all testing performed by [address] [phone]: [id number] Director: Adonay Hanks M.D. Creatinine 0.58 mg/dL Low 0.60-1.20 [facility] Comment on above: Performed By: #### C HEM8, HBA1C ####Unless otherwise noted, all testing performed by [address] [phone]: [id number] Director: Adonay Hanks M.D. eGFR (black) mL/min/{1.73_m2} Normal [facility] Comment on above: GFR Calc Result Comment: Afri can Uzbek GFR Calc Performed By: #### C HEM8, HBA1C ####Unless otherwise noted, all testing performed by [address] [id number]: [id number] Director: Adonay Hanks M.D. eGFR (non-black) mL/min/{1.73_m2} Normal [facility] Comment on above: Non- GFR Calc eGFR [...] ####Unless otherwise noted, all testing performed by [address] [phone]: [id number] Director: Adonay Hanks M.D. Glucose mass conc 320 mg/dL High 70-99 [facility] Comment on above: This test [...] ####Unless otherwise noted, all testing performed by [place] [phone]: [id number] Director: Adonay Hanks M.D. Interpretation and review of laboratory results Abnormal Invalid Interpretation Code [facility] Potassium molar conc 4.0 mmol/L Normal 3.5-5.1 [facility] Comment on above: Performed By: #### C HEM8, HBA1C ####Unless otherwise noted, all testing performed by [place] [phone]: [id number] Director: Adonay Hanks M.D. Sodium 138 mmol/L Normal 135-145 [facility] Comment on above: Performed By: #### C HEM8, HBA1C ####Unless otherwise noted, all testing performed by [place] [phone]: [id number] Director: Adonay Hanks M.D. Urea nitrogen 15 mg/dL Normal 8-25 [facility] Comment on above: Performed By: #### C HEM8, HBA1C ####Unless otherwise noted, all testing performed by [place] [phone]: [id number] Director: Adonay Hanks M.D. Hemoglobin A1con 01-01-2018 Hemoglobin A1c/Hemoglobin.total mass fraction (Bld) 11.2 % High 4.1-6.5 [facility] Comment on above: Performed By: #### C HEM8, HBA1C ####Unless otherwise noted, all testing performed by [place] [id number] [address], [place] [phone]: [id number] Director: Adonay Hanks M.D. Vital Signs Date Time Vital Sign Value Performing Clinician Facility 05-16-2024 14:12-0500 Diastolic blood pressure 100 mm[Hg] Christiano Fletcher MD Work Phone: [facility] 05-16-2024 14:12-0500 Systolic blood pressure 188 mm[Hg] Christiano Fletcher MD Work Phone: [facility] 03-31-2024 13:36-0400 Body weight 82.37 kg Emir Orozco MD Work Phone: [facility] 03-31-2024 13:36-0400 Diastolic blood pressure 114 mm[Hg] Emir Orozco MD Work Phone: [facility] 03-31-2024 13:36-0400 Heart rate 108 /min Emir Orozco MD Work Phone: [facility] 03-31-2024 13:36-0400 SaO2% (BldA) [Mass fraction] 99 % Emir Orozco MD Work Phone: [facility] 03-31-2024 13:36-0400 Systolic blood pressure 196 mm[Hg] Emir Orozco MD Work Phone: [facility] 02-17-2024 10:34-0400 Diastolic blood pressure 108 mm[Hg] Christiano Fletcher MD Work Phone: [facility] 02-17-2024 10:34-0400 Heart rate 118 /min Christiano Fletcher MD Work Phone: [facility] 02-17-2024 10:34-0400 Systolic blood pressure 197 mm[Hg] Christiano Fletcher MD Work Phone: [facility] 02-17-2024 09:43-0400 Body mass index (BMI) [Ratio] 34.96 kg/m2 Christiano Fletcher MD Work Phone: [facility] 02-17-2024 09:43-0400 Body weight 83.92 kg Christiano Fletcher MD Work Phone: [facility] 04-09-2023 09:59-0400 Diastolic blood pressure 98 mm[Hg] Vaishali Mendez [employer] Work Phone: [facility] 04-09-2023 09:59-0400 Systolic blood pressure 148 mm[Hg] Vaishali Mendez [employer] Work Phone: [facility] 04-09-2023 09:32-0400 Heart rate 90 /min Vaishali Mendez [employer] Work Phone: [facility] 04-09-2023 09:22-0400 Body mass index (BMI) [Ratio] 32.12 kg/m2 Vaishali Mendez [employer] Work Phone: [facility] 04-09-2023 09:22-0400 Body weight 77.11 kg Vaishali Mendez [employer] Work Phone: [facility] 12-08-2022 14:42-0400 Body height 154.9 cm Vaishali Mendez [employer] Work Phone: [facility] 12-08-2022 14:42-0400 Body mass index (BMI) [Ratio] 31.74 kg/m2 Vaishali Mendez [employer] Work Phone: [facility] 12-08-2022 14:42-0400 Body weight 76.2 kg Vaishali Mendez [employer] Work Phone: [facility] 12-08-2022 14:42-0400 Diastolic blood pressure 73 mm[Hg] Vaishali Mendez [employer] Work Phone: [facility] 12-08-2022 14:42-0400 Heart rate 99 /min Vaishali Mendez [employer] Work Phone: [facility] 12-08-2022 14:42-0400 Systolic blood pressure 117 mm[Hg] Vaishali Mendez [employer] Work Phone: [facility] 06-08-2022 12:03-0500 Body temperature 98.29 [degF] Jaime Coats DO Work Phone: [facility] 06-08-2022 12:03-0500 Diastolic blood pressure 76 mm[Hg] Jaime Coats DO Work Phone: [facility] 06-08-2022 12:03-0500 Heart rate 96 /min Jaime Jorge L DO Work Phone: [facility] 06-08-2022 12:03-0500 Respiratory rate 15 /min Jaime Coats DO Work Phone: [facility] 06-08-2022 12:03-0500 SaO2% (BldA) [Mass fraction] 96 % Jaime Coats DO Work Phone: [facility] 06-08-2022 12:03-0500 Systolic blood pressure 168 mm[Hg] Jaime Jorge L DO Work Phone: [facility] 06-06-2022 23:18-0500 Body height 154.9 cm Jaime Jorge L DO Work Phone: [facility] 06-06-2022 23:18-0500 Body mass index (BMI) [Ratio] 33.45 kg/m2 Jaime Jorge L DO Work Phone: [facility] 06-06-2022 23:18-0500 Body weight 80.3 kg Jaime Coats DO Work Phone: [facility] 05-29-2020 13:31-0500 BMI (Body Mass Index) 34.01 kg/m2 Allan Coats [facility] 05-29-2020 13:31-0500 Body weight 81.65 kg Allan Coats [facility] 05-29-2020 13:31-0500 BP Diastolic 85 mm[Hg] Allan Coats [facility] 05-29-2020 13:31-0500 BP Systolic 140 mm[Hg] Allan Coats [facility] 05-29-2020 13:31-0500 Height 154.9 cm Allan Coats [facility] 05-29-2020 13:31-0500 Pulse (Heart Rate) 99 /min Allan Coats [facility] 05-29-2020 13:31-0500 Pulse Oximetry 96 % Allan Coats [facility] 04-18-2020 12:42-0500 Body Temperature 98.4 [degF] Lucian Fernandez [facility] 04-18-2020 12:42-0500 BP Diastolic 74 mm[Hg] Lucian Fernandez [facility] 04-18-2020 12:42-0500 BP Systolic 149 mm[Hg] Lucian Fernandez [facility] 04-18-2020 12:42-0500 Pulse (Heart Rate) 94 /min Lucian Fernandez [facility] 04-18-2020 12:42-0500 Pulse Oximetry 95 % Lucian Fernandez [facility] 04-18-2020 12:42-0500 Respiratory Rate 16 /min Lucian [facility] 04-17-2020 15:20-0500 BMI (Body Mass Index) 34.01 kg/m2 Lucian [facility] 04-17-2020 15:20-0500 Body weight 81.65 kg Lucian [facility] 04-17-2020 15:20-0500 Height 154.9 cm [facility] Encounters Encounter Date Encounter Type Care Provider Facility Start: 04-25-2025 ambulatory Jillianjacob Waltera O[facility] Facili ty:[facility] Start: 04-23-2025 ambulatory Jillianjacob Waltera OLS Facili ty:[facility] Start: 04-08-2025 End: 04-22-2025 Evaluation and management of inpatient ELHAM CONNORS Facility:[facility] Start: 05-16-2024 End: 05-16-2024 Office outpatient visit 25 minutes Christiano Fletcher MD Work Phone: [facility] Comment on above: Well controlled type 2 diabetes mellitus (HCC) (Primary Dx) Start: 05-16-2024 End: 05-16-2024 ambulatory CHRISTIANO FLETCHER [facility] Start: 03-31-2024 End: 03-31-2024 Office outpatient visit 25 minutes Emir Orozco MD Work Phone: [facility] Comment on above: Type 2 diabetes mihaela itus without complication, without long- term current use of insulin (Primary Dx); Essential hypertension; Mixed hyperlipidemia; Seizure disorder; Meningioma Start: 03-31-2024 ambulatory SELF SELF [facility] Start: 02-17-2024 End: 02-17-2024 Emergency department patient visit PHYSICIAN [facility] Start: 02-17-2024 End: 02-17-2024 Office outpatient visit 25 minutes Christiano Fletcher MD Work Phone: [facility] Comment on above: Well controlled type 2 diabetes mellitus (HCC) (Primary Dx) Start: 02-17-2024 End: 02-17-2024 ambulatory CHRISTIANO FLETCHER [facility] Start: 02-12-2024 End: 02-16-2024 ambulatory ENEDINASHAYE JURADO [facility] Start: 02-11-2024 End: 02-11-2024 Refill Vaishali Mendez [employer] Work Phone: [facility] Start: 04-09-2023 End: 04-09-2023 Office outpatient visit 25 minutes Vaishali Mendez [employer] Work Phone: [facility] Comment on above: Type 2 diabetes mihaela itus with hyperglycemia, with long-term current use of insulin (HCC) (Primary Dx); Primary hypertension Start: 04-03-2023 End: 04-07-2023 ambulatory JAIME SHINE [facility] Start: 02-06-2023 Refill Vaishali Mendez [employer] Work Phone: [facility] Start: 12-08-2022 End: 12-08-2022 Office outpatient visit 25 minutes Vaishali Mendez [employer] Work Phone: [facility] [place] Comment on above: Type 2 diabetes mihaela itus with hyperglycemia, with long-term current use of insulin (HCC) (Primary Dx); Primary hypertension Start: 11-13-2022 Orders Only Vaishali Mendez [employer] Work Phone: [facility] Comment on above: Type 2 diabetes mihaela itus with hypoglycemia without coma, with long-term current use of insulin (HCC) (Primary Dx) Start: 06-06-2022 End: 06-08-2022 Evaluation and management of inpatient Jaime Coats DO Work Phone: [facility] Start: 06-06-2022 ambulatory PROVIDER NOT I N SYSTEM [facility] Start: 07-23-2020 End: 07-23-2020 Orders Only Laurence Gamez Kianna Work Phone: [facility] Start: 05-29-2020 End: 05-29-2020 Office outpatient new 45 minutes Enedina James Work Phone: [facility] Comment on above: Tachycardia (Primary Dx); Essential hypertension; Class 1 obesity due to excess calories with serious comorbidity and body mass index (BMI) of 34.0 to 34.9 in adult; Type 2 diabetes mellitus without complication, with long-term current use of insulin (HCC) Start: 04-17-2020 End: 04-18-2020 Emergency department patient visit Lucian Parasjada Fernandez Work Phone: [facility] Comment on above: Tachycardia (Primary Dx); Hypokalemia; Hypertension, unspecified type Start: 01-01-2018 Patient encounter Lucian Velásquez cility:[place] Start: 01-01-2018 End: 01-01-2018 Patient encounter Lucian Mott Work Phone: [facility] Procedures Date Procedure Procedure Detail Performing Clinician Start: 04-16-2025 Antibody screen ELHAM WEEKS Comment on above: Order Comment: Speci men Type: BLOOD SPECIMENOrdering Facility: [facility] Address: [address] [place] [address] Performed By: #### T SCR ####[facility] BLO[facility] BANKCLIA [id number] [address] Start: 04-12-2025 Antibody screen ELHAM WEEKS Comment on above: Order Comment: Speci men Type: BLOOD SPECIMENOrdering Facility: [facility] Address: [address] [place] [address] Performed By: #### T SCR ####[facility] BLOOD BANKCLIA [id number] [address] [facility] Start: 04-10-2025 Echocardiography ELHAM FLORES RVIS Start: 05-16-2024 Hemoglobin glycosylated a1c Christiano Fletcher MD Work Phone: Start: 04-09-2023 3 comp foot exam completed Vaishali Mendez CNP Work Phone: Start: 04-03-2023 Microalbumin [Mass/v olume] in Urine by Test strip Vaishali Mendez [employer] Work Phone: Start: 12-08-2022 3 comp foot exam completed Vaishali Mendez [employer] Work Phone: Start: 06-08-2022 Glucose measurement Alice Elizalde MD Work Phone: Start: 06-08-2022 Glucose measurement Gen lanie [facility] Work Phone: Start: 06-08-2022 Comprehensive metabo lic panel Mariel London MD Work Phone: Start: 06-07-2022 Glucose measurement Gen lanie [facility] Work Phone: Start: 06-07-2022 Glucose measurement Gen lanie [facility] Work Phone: Start: 06-07-2022 Glucose measurement Gen lanie [facility] Work Phone: Start: 06-07-2022 Glucose measurement Gen lanie [facility] Work Phone: Start: 06-07-2022 Mri brain brain stem w/o contrast material Fabian Mccabe MD Work Phone: Start: 06-07-2022 Basic metabolic pane l calcium total Mariel London MD Work Phone: Start: 06-07-2022 End: 06-07-2022 Glucose measurement Generic [facility] Work Phone: Start: 06-07-2022 Glucose measurement Gen lanie [facility] Work Phone: Start: 06-07-2022 Basic metabolic pane l calcium total Mariel London MD Work Phone: Start: 06-07-2022 End: 06-07-2022 Glucose measurement Generic [facility] Work Phone: Start: 06-07-2022 Glucose measurement Gen lanie [facility] Work Phone: Start: 06-07-2022 Basic metabolic pane l calcium total Mariel London MD Work Phone: Start: 06-07-2022 End: 06-07-2022 Glucose measurement Generic [facility] Work Phone: Start: 06-07-2022 Glucose measurement Gen lanie [facility] Work Phone: Start: 06-07-2022 End: 06-07-2022 Glucose measurement Generic [facility] Work Phone: Start: 06-07-2022 Glucose measurement Gen lanie [facility] Work Phone: Start: 06-07-2022 Basic metabolic pane l calcium total Mariel London MD Work Phone: Start: 06-07-2022 Lipid panel Fabian Mccabe MD Work Phone: Start: 06-06-2022 Glucose measurement Gen lanie [facility] Work Phone: Start: 06-06-2022 [...] exam ches t single view Odilia Goodman [employer] Work Phone: Start: 06-06-2022 Influenza virus A an d B RNA and SARS-CoV-2 (COVID-19) N gene panel - Respiratory specimen by FINA with probe detection Odilia Goodman [employer] Work Phone: Start: 06-06-2022 Ecg routine ecg w/le ast 12 lds w/i&r Jaime Coats DO Work Phone: Start: 06-06-2022 Basic metabolic pane l calcium total Odilia Goodman [employer] Work Phone: Start: 06-06-2022 End: 06-06-2022 Ct head/brain w/o contrast material Odilia Goodman [employer] Work Phone: Start: 04-18-2020 Electrocardiogram Provi gwendolyn Not In System Start: 04-18-2020 Echocardiography Ashleyaldo frances Sierra Work Phone: Start: 04-18-2020 End: 04-18-2020 Glucose [Mass/volume] in Blood Mirela Sierra Work Phone: Start: 04-18-2020 Complete [...] 02-16-2025 Urine screening for protein eGFR Diabetes [facility] Start: 11-14-2024 End: 11-14-2024 Patient encounter procedure 11/14/2024 2:15 PM EDT Office Visit [facility] [address] [place] [address] [place] [address] Lauren Berman, [employer] [address] [place], [place] [id number] [facility] Start: 11-14-2024 End: 05-16-2025 Comprehensive metabolic 2000 panel - Serum or Plasma Comprehensive metabolic panel Lab Routine Well controlled type 2 diabetes mellitus (HCC) Expected: 11/14/2024, Expires: 05/16/2025 [facility] Comment on above: Expected: 11/14/2024 , Expires: 05/16/2025 Start: 11-14-2024 Hemoglobin A1c measurement A1C [facility] Start: 11-14-2024 End: 05-16-2025 Hemoglobin A1c/Hemoglobin.total in Blood Hemoglobin A1c Lab Routine Well controlled type 2 diabetes mellitus (HCC) Expected: 11/14/2024, Expires: 05/16/2025 [facility] Work Phone: Comment on above: Expected: 11/14/2024 , Expires: 05/16/2025 Start: 11-14-2024 End: 05-16-2025 Lipid 1996 panel - Serum or Plasma Lipid Panel Lab Routine Well controlled type 2 diabetes mellitus (HCC) Expected: 11/14/2024, Expires: 05/16/2025 [facility] Comment on above: Expected: 11/14/2024 , Expires: 05/16/2025 Start: 11-14-2024 End: 05-16-2025 Microalbumin measurement, urine, quantitative Microalbumin/Creatinin e Ratio, UR Random Lab Routine Well controlled type 2 diabetes mellitus (HCC) Expected: 11/14/2024, Expires: 05/16/2025 [facility] Comment on above: Expected: 11/14/2024 , Expires: 05/16/2025 Start: 08-12-2024 Hemoglobin A1c measurement A1C [facility] Start: 05-18-2024 End: 02-16-2025 Hemoglobin A1c/Hemoglobin.total in Blood Hemoglobin A1c Lab Routine Well controlled type 2 diabetes mellitus (HCC) Expected: 05/18/2024, Expires: 02/16/2025 [facility] Work Phone: Comment on above: Expected: 05/18/2024 , Expires: 02/16/2025 Start: 05-18-2024 End: 02-16-2025 Lipid 1996 panel - Serum or Plasma Lipid panel Lab Routine Well controlled type 2 diabetes mellitus (HCC) Expected: 05/18/2024, Expires: 02/16/2025 [facility] Comment on above: Expected: 05/18/2024 , Expires: 02/16/2025 Start: 05-18-2024 End: 02-16-2025 Microalbumin measurement, urine, quantitative Microalbumin/Creatinin e Ratio, UR Random Lab Routine Well controlled type 2 diabetes mellitus (HCC) Expected: 05/18/2024, Expires: 02/16/2025 [facility] Comment on above: Expected: 05/18/2024 , Expires: 02/16/2025 Start: 05-16-2024 End: 05-16-2024 Patient encounter procedure 05/16/2024 2:30 PM EST Office Visit [facility] [address] [facility] [place] [address] Christiano Fletcher MD [address] [place] [phone] [facility] Start: 04-25-2024 End: 04-25-2024 Patient encounter procedure 04/25/2024 11:00 AM EST Office Visit [facility] [address] [place] [phone] Emir Orozco MD [address] [place] [address] [facility] Start: 04-09-2024 Diabetic foot examination [facility] Start: 04-03-2024 Urine screening for protein [facility] Start: 02-17-2024 End: 02-17-2024 Patient encounter procedure 02/17/2024 10:00 AM EDT Office Visit [facility] [address] [facility] [address] Christiano Fletcher MD [address] [place] [address] [facility] Start: 02-14-2024 COVID-19 Vaccine ( season) COVID-19 Vaccine ( season) [facility] Start: 02-14-2024 COVID-19 Vaccine ( season) COVID-19 Vaccine ( season) [facility] Start: 02-14-2024 Influenza vaccination Influenza Vacc ine (#1) [facility] Start: 12-09-2023 Diabetic foot examination Foot Exam [facility] Start: 10-09-2023 End: 10-09-2023 Patient encounter procedure 10/09/2023 2:00 PM EDT Office Visit [facility] [address] [facility] [place] [phone] Toya Roberson CNP [address] [place], [place] [phone] [facility] Start: 10-03-2023 Hemoglobin A1c measurement A1C [facility] Start: 09-14-2023 End: 04-09-2024 Comprehensive metabolic 2000 panel - Serum or Plasma Comprehensive Metabolic Panel Lab Routine Type 2 diabetes mellitus with hyperglycemia, with long-term current use of insulin (HCC) Expected: 09/14/2023, Expires: 04/09/2024 [facility] Work Phone: Comment on above: Expected: 09/14/2023 , Expires: 04/09/2024 Start: 09-14-2023 End: 04-09-2024 Hemoglobin A1c/Hemoglobin.total in Blood Hemoglobin A1c Lab Routine Type 2 diabetes mellitus with hyperglycemia, with long-term current use of insulin (HCC) Expected: 09/14/2023, Expires: 04/09/2024 [facility] Comment on above: Expected: 09/14/2023 , Expires: 04/09/2024 Start: 09-14-2023 End: 04-09-2024 Thyrotropin [Units/volume] in Serum or Plasma TSH Lab Routine Type 2 diabetes mellitus with hyperglycemia, with long-term current use of insulin (HCC) Expected: 09/14/2023, Expires: 04/09/2024 [facility] Comment on above: Expected: 09/14/2023 , Expires: 04/09/2024 Start: 09-14-2023 End: 04-09-2024 Thyroxine (T4) free [Mass/volume] in Serum or Plasma T4, Free Lab Routine Type 2 diabetes mellitus with hyperglycemia, with long-term current use of insulin (HCC) Expected: 09/14/2023, Expires: 04/09/2024 [facility] Comment on above: Expected: 09/14/2023 , Expires: 04/09/2024 Start: 04-09-2023 End: 04-09-2023 Patient encounter procedure 04/09/2023 9:45 AM EDT Office Visit [facility] [address] [facility] [place] [address] Vaishali Mendez, QUE [address] [place] [address] [facility] Start: 02-17-2023 Hemoglobin A1c measurement A1C [facility] Start: 02-13-2023 End: 12-09-2023 Complete blood count with white cell differential, manual CBC and Differential Lab Routine Type 2 diabetes mellitus with hyperglycemia, with long-term current use of insulin (HCC) Expected: 02/13/2023, Expires: 12/09/2023 [facility] Comment on above: Expected: 02/13/2023 , Expires: 12/09/2023 Start: 02-13-2023 End: 12-09-2023 Comprehensive metabolic 2000 panel - Serum or Plasma Comprehensive Metabolic Panel Lab Routine Type 2 diabetes mellitus with hyperglycemia, with long-term current use of insulin (HCC) Expected: 02/13/2023, Expires: 12/09/2023 [facility] Work Phone: Comment on above: Expected: 02/13/2023 , Expires: 12/09/2023 Start: 02-13-2023 COVID-19 Vaccine () COVID-19 Vaccine () [facility] Start: 02-13-2023 End: 12-09-2023 Hemoglobin A1c/Hemoglobin.total in Blood Hemoglobin A1c Lab Routine Type 2 diabetes mellitus with hyperglycemia, with long-term current use of insulin (HCC) Expected: 02/13/2023, Expires: 12/09/2023 [facility] Comment on above: Expected: 02/13/2023 , Expires: 12/09/2023 Start: 02-13-2023 Influenza vaccination [facility] Start: 02-13-2023 End: 12-09-2023 Lipid 1996 panel - Serum or Plasma Lipid Panel Lab Routine Type 2 diabetes mellitus with hyperglycemia, with long-term current use of insulin (HCC) Expected: 02/13/2023, Expires: 12/09/2023 [facility] Comment on above: Expected: 02/13/2023 , Expires: 12/09/2023 Start: 02-13-2023 End: 12-09-2023 Microalbumin measurement, urine, quantitative Microalbumin/Creatinin e Ratio, UR Random Lab Routine Type 2 diabetes mellitus with hyperglycemia, with long-term current use of insulin (HCC) Expected: 02/13/2023, Expires: 12/09/2023 [facility] Comment on above: Expected: 02/13/2023 , Expires: 12/09/2023 Start: 02-13-2023 End: 12-09-2023 Thyrotropin [Units/volume] in Serum or Plasma TSH Lab Routine Type 2 diabetes mellitus with hyperglycemia, with long-term current use of insulin (HCC) Expected: 02/13/2023, Expires: 12/09/2023 [facility] Comment on above: Expected: 02/13/2023 , Expires: 12/09/2023 Start: 02-13-2023 End: 12-09-2023 Thyroxine (T4) free [Mass/volume] in Serum or Plasma T4, Free Lab Routine Type 2 diabetes mellitus with hyperglycemia, with long-term current use of insulin (HCC) Expected: 02/13/2023, Expires: 12/09/2023 [facility] Comment on above: Expected: 02/13/2023 , Expires: 12/09/2023 Start: 12-30-2022 End: 12-30-2022 Patient encounter procedure 12/30/2022 1:45 PM EDT Office Visit [facility] [address] [place] [address] Office [facility], [address] [place] [address] Maryanne Nuñez, RESIDENTIAL LAWN SPECIALIST [address] [facility] [address] [place] [address] [facility] Start: 11-21-2022 End: 11-21-2022 Patient encounter procedure 11/21/2022 9:15 AM EDT Office Visit [facility] Physicians [facility] [place] [address] [place] [id number] Vaishali Mendez, RESIDENTIAL LAWN SPECIALIST [address] [place] [address] [facility] Physicians [facility] [place] Start: 09-06-2022 End: 06-08-2023 MR Brain With And Without Contrast MR Brain With And Without Contrast Imaging Routine Meningioma (HCC) Partial seizure disorder (HCC) Expected: 09/06/2022, Expires: 06/08/2023 [facility] Work Phone: Comment on above: Expected: 09/06/2022 , Expires: 06/08/2023 Start: 09-04-2022 Hemoglobin A1c measurement A1C [facility] Start: 04-17-2021 Pneumococcal vaccination Pneum ococcal Vaccine Age 65+ (2 of 2 - PPSV23) [facility] Start: 04-01-2021 COVID-19 Vaccine (3 - Pfizer risk series) COVID-19 Vaccine (3 - Pfizer risk series) [facility] Start: 10-16-2020 HbA1c (Bld) [Mass fraction] A1C [facility] Start: 06-12-2020 Pneumococcal vaccination PNEUM OCOCCAL VACCINE SERIES (2 of 2 - PPSV23 or PCV20) [facility] Start: 06-12-2020 Pneumococcal Vaccine : Age 65+ (2 - PPSV23 if available, else PCV20) Pneumococcal Vaccine: Age 65+ (2 - PPSV23 if available, else PCV20) [facility] Start: 06-12-2020 Pneumococcal Vaccine : Age 65+ (2 - PPSV23 or PCV20) Pneumococcal Vaccine: Age 65+ (2 - PPSV23 or PCV20) [facility] Start: 06-12-2020 Pneumococcal Vaccine : Age 65+ (2 of 2 - PPSV23 or PCV20) Pneumococcal Vaccine: Age 65+ (2 of 2 - PPSV23 or PCV20) [facility] Start: 02-14-2020 Influenza vaccinatio n given Sequential Influenza Vaccine (#1) [facility] Start: 2016 Fall risk assessment Falls Risk Asse ssment [facility] Start: 2016 Pneumococcal vaccination Pneum ococcal Vaccine Age 65+ (1 of 2 - PCV13) [facility] Start: 2011 Respiratory Syncytia l Virus Immunization: Risk, 60-74 Risk, or 75+ (1 - Risk 60-74 years 1-dose series) Respiratory Syncytial Virus Immunization: Risk, 60-74 Risk, or 75+ (1 - Risk 60-74 years 1-dose series) [facility] Start: 2011 RSV VACCINE (1 - 1-d ose 60+ series) RSV VACCINE (1 - 1-dose 60+ series) [facility] Start: 2001 Administration of he rpes zoster vaccine Zoster Vaccines (1 of 2) [facility] Start: 2001 Screening for malign ant neoplasm of colon [facility] Start: 2001 Zoster vaccine hzv l apolonia for subcutaneous use ZOSTER (SHINGLES) VACCINE (1 of 2) [facility] Start: 1996 Screening for malign ant neoplasm of colon COLORECTAL CANCER SCREENING DISCUSSION [facility] Start: 1991 Lipid panel LIPID SCREENING [facility] Start: 1991 Screening for malign ant neoplasm of breast [facility] Start: 1972 Screening for malign ant neoplasm of cervix CERVICAL CANCER SCREENING DISCUSSION [facility] Start: 1970 Administration of he rpes zoster vaccine Zoster Vaccines (1 of 2) [facility] Start: 1970 Third diphtheria, tetanus and acellular pertussis (DTaP) vaccination TDAP (ADULT) [facility] Start: 1969 Hepatitis C antibody , confirmatory test Hepatitis C Screening [facility] Start: 1969 Hepatitis C screening Hepatitis C Sc reening [facility] Start: 1967 COVID-19 Vaccine (1 of 2) COVID-19 Vaccine (1 of 2) [facility] Start: 1963 Adolescent depressio n screening assessment Depression Screening (PHQ9) [facility] Start: 1963 Depression screening using PHQ-9 (Patient Health Questionnaire 9) score [facility] Start: 1961 Albumin DL <= 20 mg/ L (U) [Mass/Vol] Urine Microalbumin [facility] Start: 1961 Diabetic foot examination Foot Exam [facility] Start: 1961 Glaucoma screening [facility] Start: 1961 Ophthalmic examinati on and evaluation Ophthalmology Exam [facility] Start: 1961 Urine screening for protein Urine Microalbumin [facility] Start: 1954 History and physical examination, annual for health maintenance Wellness Visit [facility] Start: 1954 Medicare Wellness Visit Medica re Wellness Visit [facility] Start: 1951 Fall risk assessment Falls Risk Asse ssment [facility] Start: 1951 Hepatitis C screening HEPATITI S C VIRUS SCREENING [facility] Start: 1951 Screening for malign ant neoplasm of colon [facility] Start: 1951 Screening for osteoporosis [facility] Start: 1951 Screening mammography Mammogram [facility] Start: [address] [facility] Bacteria identified in Unspecified specimen by Aerobe culture Urine Aerobic Culture Microbiology Routine 06/06/2022 7:20 PM EST [facility] Work Phone: End: 11-14-2023 Comprehensive metabolic 2000 panel - Serum or Plasma Comprehensive Metabolic Panel Lab Routine Type 2 diabetes mellitus with hypoglycemia without coma, with long-term current use of insulin (HCC) 1 Occurrences starting 11/13/2022 until 11/14/2023 [facility] Comment on above: 1 Occurrences starti ng 11/13/2022 until 11/14/2023 End: 11-14-2023 Hemoglobin A1c/Hemoglobin.total in Blood Hemoglobin A1c Lab Routine Type 2 diabetes mellitus with hypoglycemia without coma, with long-term current use of insulin (HCC) 1 Occurrences starting 11/13/2022 until 11/14/2023 [facility] Work Phone: Comment on above: 1 Occurrences starti ng 11/13/2022 until 11/14/2023 Immunizations Immunization Date Immunization Notes Care Provider Didier guevara 04-17-2020 influenza, injectabl e, quadrivalent, preservative free Emir Orozco MD Work Phone: [facility] 04-17-2020 pneumococcal conjuga te vaccine, 13 valent Emir Orozco MD Work Phone: [facility] 04-17-2020 influenza virus vaccine, unspecified formulation Vaishali Mendez CNP Work Phone: [facility] Payers Date Payer Category Payer Self-pay 2024 Medicare [id number] 2013 Medicare [id number] 2013 Medicare MEDICARE MEDICAR E PART A & B [id number] 2013-Present MD [id number] 2013 Medicare [id number] 2013 Medicare [id number] 1950 Unknown [id number]. 2.900 1950 Unknown [id number]. 2.900 1950 Unknown [id number] [id number]. 2.903 1950 Unknown [id number] [id number]. 2.903 1950 Unknown [id number] [id number]. 2.903 1950 Unknown [id number] [id number]. 2.983 1950 Unknown [id number] [id number]. 2.903 1950 Unknown [id number] [id number]. 2.903 For Life--Medicare Supplement FOR LIFE [id number] Unknown [place] FOR L LOUISE [id number] Effective for all dates [id number] Unknown [id number] Unknown [id number]. [id number] Unknown [id number] Unknown [id number] [id number]. 2.462 Unknown [id number]. 2.462 Social History Date Type Detail Facility Tobacco smoking stat [facility] Unknown if ever smoked [facility] Start: 1950 Sex Assigned At Not on file [facility] Start: 04-18-2020 End: 12-30-2022 Tobacco smoking status NHIS Never smoker [facility] Start: 04-18-2020 End: 12-30-2022 Tobacco use and exposure Never used [facility] Start: 04-18-2020 End: 05-16-2024 Alcohol intake Lifetime non-drinker (finding) [facility] Start: 04-17-2020 End: 05-29-2020 History SDOH Alcohol Frequency 1 [facility] Start: 05-27-2022 End: 06-06-2022 Exposure to SARS-CoV-2 (event) Not sure [facility] Start: 05-29-2020 End: 05-16-2024 History of Social function [facility] Start: 05-29-2020 End: 05-16-2024 Alcohol Use Disorder Identification Test - Consumption [AUDIT-C] [facility] How often to you hav e a drink containing alcohol? Never [facility] Average Number of Drinks Not on file [facility] History of tobacco use Passive smoker [facility] Start: 03-31-2024 Alcoholic beverage intake Current drinker of alcohol (finding) [facility] Start: 03-31-2024 Alcohol Comment rare per pt [facility] Start: 02-17-2024 Gender identity Identifies as female gender (finding) [facility] Start: 02-17-2024 Sexual orientation Heterosexual (finding) [facility] Medical Equipment Procedure Code Equipment Code Equipment Origin al Text Equipment Identifier Dates [id number] Start: 06-08-2022 Use as directed to inject insulin twice per day . [id number] Start: 03-24-2024 Clinical Notes 06-06-2022 to 04-21-2025 Patient Christiano Gee MD - 05/16/2024 2:30 PM Selvin Orozco MD - 03/31/2024 1:30 PM EDTPatient Christiano Gee MD - 02/17/2024 10:03 AM EDT Note Date & Type Note Facility 04-21-2025 Note [facility] 04-20-2025 Note [facility] 04-19-2025 Note [facility] 04-18-2025 Note [facility] 04-18-2025 Note [facility] 04-17-2025 Note [facility] 04-16-2025 Note [facility] 04[facility]16-2025 Note [facility] 04-15-2025 Note [facility] 04-15-2025 Note [facility] 04-14-2025 Note [facility] 04[facility]14-2025 Note [facility] 04-14-2025 Note [facility] 04-14-2025 Note [facility] 04-14-2025 Note [facility] 04-13-2025 Note [facility] 04[facility]13-2025 Note [facility] 04-13-2025 Note [facility] 04-12-2025 Note [facility] 04-11-2025 Note [facility] 04-11-2025 Note [facility] 04-11-2025 Note [facility] 04-10-2025 Note [facility] 04-10-2025 Note [facility] 04-09-2025 Note [facility] 04-09-2025 Note [facility] 04-09-2025 Note [facility] 05-16-2024 Instructions Christiano Fletcher MD - 05/16/2024 2:36 PM EST Please change the 70/30 insulin to 4 units before breakfast and 4 units before supper. documented in this encounter [facility] 05-16-2024 History of Present illness Narrative Images from the original note were not included. [facility] [address]) [facility] [address] [facility] [address] Chief Complaint Patient presents with Diabetes [...] walks every day 15 min Allergies: Allergies: Waldorf, Poison rhonda extract, Poison oak extract, and Penicillins Current Outpatient Medications Medication Instructions acetaminophen (TYLENOL) 325 mg, Oral, Every 6 hours PRN amLODIPine (NORVASC) 10 mg, Oral, Daily pbycapx-gagpkjfyhfzsz-cstnrjjv (EXCEDRIN MIGRAINE) 250-250-65 mg per tablet 1 [...] exam. 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 BP usually high before her visits; she [...] Christiano Fletcher MD documented in this encounter [facility] 05-16-2024 Note [facility] [address]) [facility] [address] [facility] [address] Chief Complaint Patient presents with Diabetes [...] walks every day 15 min Allergies: Allergies: Waldorf, Poison rhonda extract, Poison oak extract, and Penicillins Current Outpatient Medications Medication Instructions acetaminophen (TYLENOL) 325 mg, Oral, Every 6 hours PRN amLODIPine (NORVASC) 10 mg, Oral, Daily stgeifa-idzliqjjbdlmw-hybripfv (EXCEDRIN MIGRAINE) 250-250-65 mg per tablet 1 [...] Final Bicarbonate Date (more content not included)... [facility] 03-31-2024 History of Present illness Narrative New Patient Visit Hilaria Lyons [id number] 1950 03/31/2024 Chief Complaint Patient presents with [...] and Sexual Activity Drug Use Never Allergies: Waldorf, Extract of poison rhonda, Extract of poison oak, Latex, and Penicillins Home Medications: Current Outpatient Medications: Acetaminophen 325 MG tablet, Take 1 tablet by mouth Every 6 hours as needed., Disp: , Rfl: amLODIPine 10 MG tablet, Take 1 tablet by mouth daily., Disp: 90 tablet, Rfl: 3 tjrwyou-ahwtesriaahor-qejbynbz 250-250-65 MG tablet, Take 1 tablet by [...] Emir Orozco MD documented in this encounter [facility] 02-17-2024 Instructions Christiano Fletcher MD - 02/17/2024 10:13 AM EDT Humulin 70/30: 6 units at breakfast; 4 units at supper documented in this encounter [facility] 02-17-2024 Note [facility] [address]) [facility] [address] [facility] [address] Chief Complaint Patient presents with Diabetes [...] walks every day 15 min Allergies: Allergies: Waldorf, Poison rhonda extract, Poison oak extract, and Penicillins Current Outpatient Medications Medication Instructions acetaminophen (TYLENOL) 325 mg, Oral, Every 6 hours PRN amLODIPine (NORVASC) 10 mg, Oral, Daily xwidwbu-ragpxnpkmlmtp-lwsomxft (EXCEDRIN MIGRAINE) 250-250-65 mg per tablet 1 [...] Anion Gap D (more content not included)... [facility] 02-17-2024 History of Present illness Narrative Images from the original note were not included. [facility] [address]) [facility] [address] [facility] [address] Chief Complaint Patient presents with Diabetes [...] walks every day 15 min Allergies: Allergies: Waldorf, Poison rhonda extract, Poison oak extract, and Penicillins Current Outpatient Medications Medication Instructions acetaminophen (TYLENOL) 325 mg, Oral, Every 6 hours PRN amLODIPine (NORVASC) 10 mg, Oral, Daily yozkxxh-whbpsmmwnftpm-vkrkcvue (EXCEDRIN MIGRAINE) 250-250-65 mg per tablet 1 [...] due for retinal exam. 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 Needs a lipid panel and microalbumin before [...] Christiano Fletcher MD documented in this encounter [facility] 04-09-2023 History of Present illness Narrative Images [...] (10 mg total) by mouth daily . upvkxyx-pkjhgqphqftns-nhgokbmh (EXCEDRIN MIGRAINE) 250-250-65 mg per tablet, Take [...] within last 12 months: yes Date: 12/05 Office Machine Installer/Communications Station Manager: Dr. Diaz Other Ophthalmologic Conditions: S/P Right [...] foot exam: 04/09/23 Follows with Podiatry: Yes Welding Robot Operator: [facility] foot care. History of foot ulceration: [...] Call if BG consistently <70 or >250. [phone] Patient has been checking blood glucoses 2 [...] Vaishali Mendez CNP documented in this encounter [facility] 12-08-2022 History of Present illness Narrative Images [...] (10 mg total) by mouth daily . rqcvhmd-elclrgkgcxvxr-hkqfpoou (EXCEDRIN MIGRAINE) 250-250-65 mg per tablet, Take [...] within last 12 months: yes Date: 12/05 Office Machine Installer/Communications Station Manager: Dr. Diaz Other Ophthalmologic Conditions: S/P Right [...] foot exam: 12/08/22 Follows with Podiatry: Yes Welding Robot Operator: [facility]. History of foot ulceration: [...] Call if BG consistently <70 or >250. [phone] Patient has been checking blood glucoses 2 [...] Vaishali Mendez CNP documented in this encounter [facility] 06-08-2022 Hospital Discharge instructions Elisa Collins MD - 06/08/2022 10:56 AM EST Check blood glucose 2 times a day before breakfast and supper. Record blood glucoses and report glucoses to Dr. Collins's office at [phone] once a week for insulin dose adjustment. Call sooner if blood glucoses are consistently running less than 80 or greater than 250. Call to schedule follow up appointment with Dr. Collins at [phone]. Appointment should be in 4-6 weeks Keiry Birmingham OT - 06/07/2022 11:21 AM EST Please issue to pt at discharge: SEARCH ADVERTISING STRATEGIST documented in this encounter [facility] 06-08-2022 History of Present illness Narrative Neurology Inpatient Follow Up Note [facility] Date of Service: 06/08/22 Service Type: Inpatient Consultation follow up Patient: Hilaria Lyons Date of : 1950 (72 y.o.) Referring Provider: Refer to consult order in electronic medical record PCP: Jaime Shine MD Assessment ASSESSMENT: Hilaria Lyons is a 72 y.o. female who presented to [facility] on 06/06/2022 with slurred speech. Patient [...] after discharge. Fabian Mccabe MD Staff Neurologist [facility] [address] [facility], [facility] [address] Clinic Fax: [phone] 06/08/22 Parts of this note may have [...] and does not use drugs. Allergies: Allergies: Waldorf, Poison rhonda extract, Poison oak extract, and [...] MARY JO Unable to Assess COORDINATION: Coordination Mpjmwf-ld-Ylkh: A little slow and cautious but no overt ataxia is appreciated Holley Finger taps: normal Coordination Tbfd-Cbdz-Coto: normal Diadochokinesis: normal STANCE AND GAIT: Base/Stance: [...] and neck shows moderate stenosis in bilateral alumni coordinator but no other significant stenosis or occlusions. [...] 50% of that time was spent on lnla-ea-wpis counseling and/or coordination of care. This includes discussions with patient/family as well as with consulting care providers, regarding clinical course, prognosis, treatment alternatives, expected outcomes of medications and their side effects. Patient ID: Patient Name: Hilaria Lynos Admit Date: 06/06/2022 MR #: [id number] : 1950 Current location: [facility] Physicians: Jaime Shine MD (Family); Dr. [...] could get Novolin reli-on 70/30 pens at [facility], which are more affordable for her. At follow up in office, can apply for patient assistance from [employer] or [employer]. 25 minutes spent with pt today Blood [...] start Novolin Reli-on 70/30 insulin available at [facility], 20 U AM breakfast/16 U PM before dinner. Continue metformin, but stop gllimepiride. Check BG BID and record; report to Dr. Collins office q week until follow up. Call to schedule follow up appointment with Dr. Collins at [phone]. Appointment should be in 4-6 weeks. . 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 [...] ketones 9 WBCs Allergies: Allergies Allergen Reactions Waldorf Hives Poison Rhonda Extract Poison Saxon Extract Unknown Penicillins GI Intolerance Home Medications: [...] History: Diagnosis Date Arthritis CVA (cerebrovascular accident) ([facility]) 06/06/2022 Diabetes mellitus (HCC) Hypertension Obesity Past [...] this patient with you. Elisa Collins MD [facility] PROGRESS NOTE Assessment and Plan Hilaria Lyons [...] Healthcare Provider;Patient Not Available Visit By Staff Inside Sales Specialist Visit Progression Attempt Visit Requested By Inside Sales Specialist Initiated Visit Source Automated Page Visit Type Crisis Visit Visit Circumstances and Events Stroke Alert Visit Length (minutes) 15 Patient's Response to Pastoral Care (Did not participate) Visit Planning PRN Spiritual Assessment Not assessed during visit Quaker Assessment Not assessed during this visit Family assessment provided? Unable to asess during this visit Signature: Silvina Arambula MDiv Staff Inside Sales Specialist [facility]: On-Call / Office / Alexis On-Call Inside Sales Specialist [place]: Inside Sales Specialist Hotline / Vocjoe On-Call Inside Sales Specialist She/Her/Hers documented in this encounter [facility] 06-08-2022 Note Formatting of this n ote might be different from the original. PHYSICAL THERAPY VISIT VARIANCE NOTE Spoke to pt and she reports independence with transfers and gait denying need for PT needs at this time. Will DC PT. [facility] 06-08-2022 Miscellaneous Notes PHYSICAL THERAPY VISIT VARIANCE [...] Performed by: Jaime Coats DO Authorized by: Jiame Coats DO Interpreted by ED attending physician [...] was emergently consulted by Emergency Department at [place] for a stroke alert evaluation. 72-year-old female with a past medical history of hypertension, obesity, and type 2 diabetes who presents to [place] ED for evaluation of trouble talking/slurred speech. [...] vertigo, chest pain, SOB. On arrival to [place] ED the patient had right facial droop [...] SQ heparin Henry Melendez MD Cerebrovascular Neurology [facility] documented in this encounter [facility] 06-08-2022 Hospital course Narrative [facility] DISCHARGE SUMMARY -- [facility] Hliaria Lyons Admitted: 06/06/2022 Discharge Date: 06/08/22 PCP Handoff Recommended Outpatient Testing F/u with Dr. Collins, repeat MRI in 2-3 months Results Pending At Discharge none Clinical Summary Hilaira Lyons is a 72 y.o. female patient [...] Dr. Collins consulted - restarted glargine with [facility] insulin Pt pays for her glargine herself [...] 06/08/22, 10:22 AM documented in this encounter [facility] 06-07-2022 Note Formatting of this n ote [...] agents depending on how her BP does. [facility] 06-07-2022 Consult note [facility] Order (s): IP CONSULT TO NEUROLOGY; IP CONSULT TO NEUROLOGY Neurology Inpatient Consult [facility] Date of Service: 06/07/22 Admit Date: 06/06/2022 Service Type: New Patient Consultation Patient: Hilaria Lyons Date of : 1950 (72 y.o.) Referring Provider: Refer to consult order in electronic medical record PCP: Jaime Shine MD Assessment ASSESSMENT: Hilaria Lyons is a 72 y.o. female who presented to [facility] on 06/06/2022 with slurred speech. Patient [...] CTA shows some moderate stenosis in bilateral alumni coordinator probably related to atherosclerotic plaque, but no [...] be related to atherosclerotic disease in her alumni coordinator depending on location of the infarct. Hyperglycemia [...] [facility] Fabian Mccabe MD Staff Neurologist [facility] [address] [facility], [facility] [address] [facility] Fax: [phone] 06/07/22 Parts of this note may have been dictated using Exerscrip, a speech-recognition software. Syntax errors and sound-alike [...] and does not use drugs. Allergies: Allergies: Waldorf, Poison rhonda extract, Poison oak extract, and [...] MARY JO Unable to Assess COORDINATION: Coordination Xxirts-bd-Ilbs: A little slow and cautious but no overt ataxia is appreciated Holley Finger taps: normal Coordination Gayi-Nxpr-Gegq: normal Diadochokinesis: normal STANCE AND GAIT: Base/Stance: [...] and neck shows moderate stenosis in bilateral alumni coordinator but no other significant stenosis or occlusions. [...] 50% of that time was spent on rsvr-be-iknb counseling and/or coordination of care. This includes discussions with patient/family as well as with consulting care providers, regarding clinical course, prognosis, treatment alternatives, expected outcomes of medications and their side effects. [facility] 06-07-2022 Consult note Associated Order (s): IP CONSULT TO NEUROLOGY; IP CONSULT TO NEUROLOGY Neurology Inpatient Consult [facility] Date of Service: 06/07/22 Admit Date: 06/06/2022 Service Type: New Patient Consultation Patient: Hilaria Lyons Date of : 1950 (72 y.o.) Referring Provider: Refer to consult order in electronic medical record PCP: Jaime Shine MD Assessment ASSESSMENT: Hilaria Lyons is a 72 y.o. female who presented to [facility] on 06/06/2022 with slurred speech. Patient [...] CTA shows some moderate stenosis in bilateral alumni coordinator probably related to atherosclerotic plaque, but no [...] be related to atherosclerotic disease in her alumni coordinator depending on location of the infarct. Hyperglycemia [...] [facility] Fabian Mccabe MD Staff Neurologist [facility] [address] [facility], [facility] [address] Clinic Fax: [phone] 06/07/22 Parts of this note may have been dictated using Exerscrip, a speech-recognition software. Syntax errors and sound-alike [...] and does not use drugs. Allergies: Allergies: Waldorf, Poison rhonda extract, Poison oak extract, and [...] MARY JO Unable to Assess COORDINATION: Coordination Ktxbdl-un-Fzkv: A little slow and cautious but no overt ataxia is appreciated Holley Finger taps: normal Coordination Zucz-Vmlv-Lqpi: normal Diadochokinesis: normal STANCE AND GAIT: Base/Stance: [...] and neck shows moderate stenosis in bilateral alumni coordinator but no other significant stenosis or occlusions. [...] 50% of that time was spent on sarz-oo-wjrd counseling and/or coordination of care. This includes [...] 10 days DME Recommendation: Adaptive equipment kit (agriculture specialist) DME Rationale: Patient's condition creates an increased [...] of function. 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 [...] Function Receives Help From: Family Level of [place] - Transfers/Ambulation/Mobility: Independent with functional transfers, Independent with household ambulation, Independent with community ambulation Level of [place] - ADLs: Independent Level of [place] - Homemaking: Independent Driving: Patient drives Subjective Impression - Prior Function: Pt reports nieces and daughters can assist her as able Past Medical History: Diagnosis Date Arthritis CVA (cerebrovascular accident) ([facility]) 06/06/2022 Diabetes mellitus (HCC) Hypertension Obesity Past [...] for Referral: Stroke / neuro Primary Language: Malaysian 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 HIGH RIGGER Caregiver Readiness: HIGH RIGGER Caregiver Readiness Working toward discharge home: Yes HIGH RIGGER Caregiver Training: Completed (patient own caregiver) Speech [...] to BSE: Regular, Thin liquid Primary Language: Malaysian Baseline Assessment: Subjective Impression: Alert, Pleasant Mood, [...] and performance Explain Personal Factors: good insight HIGH RIGGER Caregiver Readiness: HIGH RIGGER Caregiver Readiness Working toward discharge home: Yes HIGH RIGGER Caregiver Training: Completed (patient own caregiver) Speech [...] Hilaria Lyons Admit Date: 06/06/2022 MR #: [id number] : 1950 Current location: [facility] Physicians: Jaime Shine MD (Family); Dr. 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 [...] ketones 9 WBCs Allergies: Allergies Allergen Reactions Waldorf Hives Poison Rhonda Extract Poison Saxon Extract Unknown Penicillins GI Intolerance Home Medications: [...] Elisa Collins MD documented in this encounter [facility] 06-07-2022 Consult note Formatting of th is [...] 10 days DME Recommendation: Adaptive equipment kit (agriculture specialist) DME Rationale: Patient's condition creates an increased [...] of function. 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 [...] Function Receives Help From: Family Level of [place] - Transfers/Ambulation/Mobility: Independent with functional transfers, Independent with household ambulation, Independent with community ambulation Level of [place] - ADLs: Independent Level of [place] - Homemaking: Independent Driving: Patient drives Subjective [...] completion of Occupational Therapy Plan of Care. 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 HIGH RIGGER Caregiver Readiness: HIGH RIGGER Caregiver Readiness Working toward discharge home: Yes HIGH RIGGER Caregiver Training: Completed (patient own caregiver) Speech [...] completion of Speech Pathology Plan of Care [facility] 06-07-2022 Consult note Formatting of th is [...] to BSE: Regular, Thin liquid Primary Language: Malaysian Baseline Assessment: Subjective Impression: Alert, Pleasant Mood, [...] and performance Explain Personal Factors: good insight HIGH RIGGER Caregiver Readiness: HIGH RIGGER Caregiver Readiness Working toward discharge home: Yes HIGH RIGGER Caregiver Training: Completed (patient own caregiver) Speech [...] completion of Speech Pathology Plan of Care. [facility] 06-07-2022 Consult note Associated Order (s): IP CONSULT TO ENDOCRINOLOGY Patient ID: Patient Name: Hilaria Lyons Admit Date: 06/06/2022 MR #: [id number] : 1950 Current location: [facility] Physicians: Jaime Shine MD (Family); Dr. 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 [...] ketones 9 WBCs Allergies: Allergies Allergen Reactions Waldorf Hives Poison Rhonda Extract Poison Saxon Extract Unknown Penicillins GI Intolerance Home Medications: [...] this patient with you. Elisa Collins MD [facility] 06-06-2022 Emergency department Note Pt's daughter Amina update on pts status, pt [facility] 06-06-2022 Emergency department Note Pt's daughter Amina [...] CT for CTA AMINA BETTS RN (DAUGHTER) [phone] Bed: 35 Expected date: Expected time: Means of arrival: Comments: CHASE JEFFREY Pt was brought in by EMS for concerns of a stroke. Pt reports aphasia and right arm numbness/weakness starting at 2PM today. Pt also has right sided facial droop. Pt has a LAMS score of 2. Odilia Goodman at [facility], this RN called stroke alert at this time. documented in this encounter [facility] 06-06-2022 Emergency department Note Hourly rounding assessment completed on the patient. [x] Patient updated on plan of care [x] All comfort needs addressed [x] Patient updated on duration of visit All questions answered, patient denies further needs. Call light within reach. [facility] 06-06-2022 History and physical note [facility]ORY [facility] PHYSICAL -- [facility] Patient Name: Hilaria Lyons : 1950 MR #: [id number] Admit Date: 06/06/2022 Physicians: Jaime Shine MD [...] Information I have reviewed the patient's allergies. Waldorf, Poison rhonda extract, Poison oak extract, and [...] 06/07/22 12:06 AM Transcriptions 06/07/22 12:06 AM [facility] 06-06-2022 History and physical note [facility] -- [facility] Patient Name: Hilaria Lyons : 1950 MR #: [id number] Admit Date: 06/06/2022 Physicians: Jaime Shine MD [...] Information I have reviewed the patient's allergies. Waldorf, Poison rhonda extract, Poison oak extract, and [...] 06/07/22 12:06 AM documented in this encounter [facility] 06-06-2022 Emergency department Note Daughter called asking for an update on patient. This PSA notified daughter that patient is being admitted and she can call back later to find out what bed number [facility] 06-06-2022 Note Formatting of this n ote [...] any errors, but occasionally words are mis-transcribed.) [facility] Work Phone: 06-06-2022 Note Associated Order(s): ECG 12 Lead ECG 12 Lead Date/Time: 06/06/2022 7:02 PM Performed by: Jaime Coats DO Authorized by: Jaime Coats DO Interpreted by ED attending physician Comparison: not compared with previous ECG Previous ECG: no previous ECG available Rhythm: sinus rhythm BPM: 72 Conduction: conduction normal ST Segments: ST segments normal T Waves: T waves normal [facility] 06-06-2022 Note Formatting of this n ote [...] independent and exclusive of separate billable procedures. [facility] 06-06-2022 Emergency department Note Pt back to CT for CTA [facility] 06-06-2022 Note Formatting of this n ote might be different from the original. [facility] Neurology Assessement Note History of Present Illness: I was emergently consulted by Emergency Department at [place] for a stroke alert evaluation. 72-year-old female with a past medical history of hypertension, obesity, and type 2 diabetes who presents to [place] ED for evaluation of trouble talking/slurred speech. [...] vertigo, chest pain, SOB. On arrival to [place] ED the patient had right facial droop [...] SQ heparin Henry Melendez MD Cerebrovascular Neurology [facility] Work Phone: 06-06-2022 Emergency department Note AMINA BETTS RN (DAUGHTER) [phone] [facility] 06-06-2022 Emergency department Note Pt to CT [facility] 06-06-2022 Emergency department Note Bed: 35 Expected date: Expected time: Means of arrival: Comments: CHASE MURPHY [facility] 06-06-2022 Emergency department Triage note Pt was brought in by EMS for concerns of a stroke. Pt reports aphasia and right arm numbness/weakness starting at 2PM today. Pt also has right sided facial droop. Pt has a LAMS score of 2. Odilia Goodman at [facility], this RN called stroke alert at this time. [facility] Evaluation note Diagnosis Partial seizure disorder (HCC)- [...] of cerebral meninges [facility] Diagnosis Type 2 diabetes mellitus with hypoglycemia without coma, with long-term current use of insulin (HCC)- [facility] Diagnosis Type 2 diabetes mellitus with hyperglycemia, with long-term current use of insulin (HCC)- Primary Primary hypertension Unspecified essential hypertension [facility] Diagnosis Type 2 diabetes mellitus with hyperglycemia, with long-term current use of insulin (HCC)- Primary Primary hypertension Unspecified essential hypertension [facility] Diagnosis Well controlled type 2 diabetes mellitus (HCC)- Primary [facility] Diagnosis Type 2 diabetes mellitus without complication, without long-term current use of insulin- Primary Essential hypertension Unspecified essential hypertension Mixed hyperlipidemia Seizure disorder Unspecified epilepsy without mention of intractable epilepsy Meningioma Benign neoplasm of cerebral meninges [facility] Diagnosis Tachycardia- Primary Unspecified tachycardia Essential [...] mellitus (HCC)- Primary documented in this encounter [facility] for referral (narrative)* Consultation (Routine) - New Request Specialty Diagnoses / Procedures Referred By Aliyah olea Referred To Contact Neurology Diagnoses Seizure disorder Meningioma mEir Orozco MD [address] [place] [address] Referral ID Status Reason Start Date Expiration Date V isits Requested Visits Authorized [id number] New Request 03/31/2024 04/25/2025 1 1 [facility] Summary Purpose Family History No Family History Records FoundNo Family History Records FoundNo Family History Records FoundNo Family History Records FoundNo Family History Records FoundNo Family History Records FoundNo Family History Records FoundNo Family History Records Found Advance Directives No Advanced Directives Records FoundDocuments on File Type Date Recorded Patient Forestry Consultant Expl anation Advance Directives and Livin g Will 04/17/2020 4:27 PM Latest Code Status on File Code Status Date Activated Date Inactivated Comments Full Code - Unverified 04/17/2020 9:20 PM 04/18/2020 7:2 7 PM Documents on File Type Date Recorded Patient Forestry Consultant Expl anation Advance Directives and Livin g [...] HOSPITALIST DISCHARGE SUMMARY Patient: Hilaria Lyons Account: [id number] Admitted: 04/17/2020 Discharge Date/Time: 04/18/2020 Clinical Summary [...] Units 04/18/20 0432 TSH mcIU/mL 0.99 Allergies: [place], Poison rhonda extract, and Penicillins Discharge Diet: Diet Special; Cardiac, Diabetic; Carbohydrate Consistent 60g/meal (8782-2985 kCal equivalent) Disposition: Discharge Medications Medication List [...] These medications were sent to [facility] [address] [place] [address] [address] [facility] [address] [facility] [address] amLODIPine 10 MG tablet apixaban 5 mg Tab carvediloL 12.5 MG tablet glimepiride 4 MG tablet lisinopriL 40 MG tablet metFORMIN 1000 MG tablet Physician(s) Family: Jaime Shine MD, , Address: [address] [place] [address] / [facility] [address] Follow Up: your doctor Call in 1 day Recheck of today's visit [facility] Emergency Department [address] [facility] [address] Go to If symptoms worsen, As needed Jaime Shine MD [address] [place] [phone] Follow up Patient instructions, including activity, were given to the patient/family at discharge. Please seethe After Visit Summary in the medical record for details. Time spent on discharge: > 30 minutes Completed by: aMriel Waldrop on 04/18/20, 4:20 PM documented in [...] be sent through Care Everywhere. * Hypokalemia (Malaysian) * Cardiac Arrhythmia (Malaysian) documented in this encounter History of Present [...] and will be in to get Eliquis. [facility] Disposition Regulatory Documentation: Condition code 44 [...] Medicine Inpatient Follow-up 04/18/2020 Mariel Waldrop MD [facility] Patient: Hilaria Lyons Date of : [...] (2 points) [] Vascular disease (history of MA, PAD, or aortic atherosclerosis) (1 point) SUBJECTIVE: [...] 05/29/2020 2:40 PM EST Cardiology Office Visit [facility] [address] [facility] [address] [facility] [address] Physicians: Jaime Shine MD (Family); Enedina [...] cataracts TUBAL LIGATION 1986 Allergies Allergen Reactions Waldorf Hives Poison Rhonda Extract Penicillins GI Intolerance [...] file Gets together: Not on file Attends religion service: Not on file Active member of [...] normal. Nursing note and vitals reviewed. EKG ([facility])(04/17/2020 1302): sinus tachycardia, with PAC (computer algorithm interpreted: atrial flutter/tachycardia with RVR, NSSTW). EKG (04/17/2020 1534): sinus tachycardia with PAC, septal infarct age undetermined. EKG (04/17/2020 07322): sinus tachycardia. Lipids (04/17/2020): Total cholesterol 198, triglycerides 118, HDL-, LDL 109 mg/dL. EKG (04/18/2020 0552): NSR. Echocardiography (04/18/2020): Normal LV cavity size and systolic function; EF 56%. Moderate concentric LVH. Grade 1 diastolic dysfunction. Trace Derrick Allan Coats MD, [facility] documented in this encounter Assessments Diagnosis Tachycardia- [...] your care team or the office at [phone]. Please include medication name, pharmacy name, and [...] With And Without Contrast Fabian Mccabe MD [facility] [address] [place] [id number] Referral ID Status Reason Start Date Expiration Date V isits Requested Visits Authorized [id number] New Request 09/06/2022 09/06/2023 1 1 Additional Source Comments INFORMATION SOURCE (unrecogn ized section and content) DATE CREATED AUTHOR 01/05/2018 [facility] DATE CREATED AUTHOR AUTHOR'S ORGANIZ ATION 06/08/2022 [facility] DATE CREATED AUTHOR AUTHOR'S ORGANIZ ATION 02/18/2024 [facility] DATE CREATED AUTHOR AUTHOR'S ORGANIZ ATION 04/03/2024 [facility] DATE CREATED AUTHOR AUTHOR'S ORGANIZ ATION 05/17/2024 [facility] DATE CREATED AUTHOR AUTHOR'S ORGANIZ ATION 04/18/2025 [facility] DATE CREATED AUTHOR AUTHOR'S ORGANIZ ATION 04/25/2025 [facility] DATE CREATED AUTHOR AUTHOR'S ORGANIZ ATION 04/26/2025 [facility] Reason for Visit (unrecogniz ed section and [...] with rapid ventricular response (HCC) Enedina James, RESIDENTIAL LAWN SPECIALIST [address] [place] [address] [facility] [address] [facility] [place] [address] Reason Comments Stroke Alert Specialty Diagnoses / Procedures Referred By Contac t Referred To Contact Diagnoses Hyperglycemia Acute UTI Acute ischemic stroke (HCC) Acute CVA (cerebrovascular accident) (HCC) Referral ID Status Reason Start Date Expiration Date Visits Re quested Visits Authorized [id number] 1 1 Reason Comments Diabetes Mellitus Gap [...] H&P Notes (unrecognized sect ion and content) [facility] Medicine Inpatient H&P 04/17/2020 Mirela Sierra MD [facility] Patient: Hilaria Lyons Date of : [...] STATES FEELING BETTER Dr Jaime mayers @ [phone] Fernandez request. [facility] ED Physician Note: NAME: Hilaria Lyons 70 y.o. CSN: [id number] PCP: Physician No ED Course / Medical [...] type [facility]position: [facility] History: Chief Complaint: Tachycardia HPI: The [...] file Gets together: Not on file Attends religion service: Not on file Active member of [...] Procedure Abnormality Status --------- ------ CBC Auto Differential[[id number]] Abnormal Final result Please view results for these tests on the individual orders. TROPONIN XR Chest 1 View Final Result No acute cardiopulmonary abnormalities. Workstation ID: [id number] Procedures: Procedures Lucian Fernandez MD ED Physician [facility] Emergency Department (Please note that portions of [...] Shine is PCP but today she saw CHEESEMAKER HELPER, HR 130 documented in this encounter Plan [...] rhythm BPM: 116 Conduction: conduction normal normal NH interval normal QT interval Clinical impression: non-specific [...] Armijo RN)1900 (Rate/Dose Verify - Provider: Piedad oCats RN)190 (Stopped - Provider: Piedad Coats, RN) [...] Sherri Armijo RN) 1203 (Given - Provider: Jakcy Russo, FABIO) metFORMIN (GLUCOPHAGE) tablet 1,000 mg [...] PLACED TUBE OR TUBE less than 14 Arabic. To administer dissolved tablet(s) mix with 4 [...] Provider: Piedad Coats, RN)1352 (Given - Provider: hSerri Armijo, RN)2102 (Given - Provider: Piedad Coats, [...] mL, Intravenous, Once in imaging, contrast, Per professor of anthropology (Radiology) for line patency check prior to contrast administration, Starting on Thu06/06/22 at 1851, For 1 dose 185 (Given - Provider: Marv Arellano, TECHNOLOGIST) sodium chloride (PF) (NS) 0.9 % contrast line flush 80 mL (COMPLETED) 80 mL, Intravenous, Once in imaging, contrast, Per professor of anthropology (Radiology), Starting on Thu06/06/22 at 1851, For [...]
Care Teams (unrecognized sec tion and content) Fingerer Relationship Specialty Start Date End Date Jaime Shine MD [address] [address] PCP - General Internal Medicine 04/17/20 Fingerer Relationship Specialty Start Date End Date Jaime Shine MD [address] [address] PCP - General Internal Medicine 04/17/20 Fingerer Relationship Specialty Start Date End Date Jaime Shine MD [address] [address] PCP - General Internal Medicine 04/17/20 Fingerer Relationship Specialty Start Date End Date Jaime Shine MD [address] [address] PCP - General Internal Medicine 04/17/20 Fingerer Relationship Specialty Start Date End Date Enedina James CNP [address] [address] PCP - General Family Medicine 04/09/23 Fingerer Relationship Specialty Start Date End Date Enedina James CNP [address] [address] PCP - General Family Medicine 04/09/23 Fingerer Relationship Specialty Start Date End Date Enedina James CNP [address] [address] PCP - General Family Medicine 04/09/23 Fingerer Relationship Specialty Start Date End Date Emir Orozco MD [address] [place] [address] PCP - General Family Medicine 03/31/24 Fingerer Relationship Specialty Start Date End Date No, Physician [facility] PCP - General 02/17/24 FOR RECORDS PERTAINING [...] BE BASED ON THE PRIMARY CLINICAL RECORDS. [employer]. provides no warranty or guarantee of the accuracy or completeness of information [id number]
--- OUTSIDE RECORDS SUMMARY | 2025-05-07 11:17 | XMS RPT_ITS | CCD ---
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 Role Phone Unavailable Unavailable Unavailable Lucian [...] reactions to drug 0 GI Intolerance, Dyspepsia [facility] (15 sources) POISON RHONDA EXTRACT; Translations: [POISON RHONDA EXTRACT] Drug Allergy 0 [facility] (14 sources) strawberry allergenic extract; Translations: [STRAWBERRY] Drug Allergy 0 [facility] (10 sources) Poison [place] Extract; Translations: [POISON [place] EXTRACT] Propensity to adverse reactions to drug 2 Unknown [facility] (1 source) [place] Propensity to adverse reactions to drug 4 [facility] (1 source) [place] Propensity to adverse reactions to drug 0 [facility] (1 source) Extract Of Poison [place] Propensity to adverse reactions to drug 2 Rash [facility] Medications Current Medications Medication Drug Class(es) Dates [...] mg docusate sodium 50 mg / sennosides, [facility] 8.6 mg oral tablet (1 source) Start: [...] AND switch to MAINTENANCE IV fluid sennosides, [facility] 8.6 mg oral tablet (1 source) Start: [...] 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, [address] Calcium [Mass/Vol] 8.4 mg/dL Normal 7.6-11.0 [facility] Comment on above: Order Comment: 207.1 Performed By: #### L 501.5200, L100.0500, L500.2500, L300.3900 #### [facility] [address] [place], [address] Chloride [Moles/Vol] 100 mmol/L Normal 98-108 [facility] Comment on above: Order Comment: 207.1 Performed By: #### L 501.5200, L100.0500, L500.2500, L300.3900 #### [facility] [address] [place], [address] CO2 [Moles/Vol] 23.4 mmol/L Normal 21.0-32.0 [facility] Comment on above: Order Comment: 207.1 Performed By: #### L 501.5200, L100.0500, L500.2500, L300.3900 #### [facility] [address] [place], [address] Creatinine [Mass/Vol] 0.81 mg/dL Normal 0.70-1.20 [facility] Comment on above: Order Comment: 207.1 Performed By: #### L 501.5200, L100.0500, L500.2500, L300.3900 #### [facility] [address] [place], [address] GAP 10 Normal 5-15 [facility] Comment on above: Order Comment: 207.1 Performed By: #### L 501.5200, L100.0500, L500.2500, L300.3900 #### [facility] [address] [place], [address] GFR/1.73 sq M.predicted among non-blacks MDRD (S/P/Bld) [Vol rate/Area] 76 mL/min/{1.73_m2} Normal >60 [facility] Comment on above: Order Comment: 207.1 Result Comment: mL/m in/1.73m2 CKD-EPI Creatinine Equation (2020) Performed By: #### L 501.5200, L100.0500, L500.2500, L300.3900 #### [facility] [address] [place], [address] Glucose [Mass/Vol] 67 mg/dL Low 70-99 [facility] Comment on above: Order Comment: 207.1 Performed By: #### L 501.5200, L100.0500, L500.2500, L300.3900 #### [facility] [address] [place], [address] Potassium [Moles/Vol] 5.0 mmol/L Normal 3.3-5.1 [facility] Comment on above: Order Comment: 207.1 Performed By: #### L 501.5200, L100.0500, L500.2500, L300.3900 #### [facility] [address] [place], [address] Sodium [Moles/Vol] 133 mmol/L Normal 133-145 [facility] Comment on above: Order Comment: 207.1 Performed By: #### L 501.5200, L100.0500, L500.2500, L300.3900 #### [facility] [address] [place], [address] Urea nitrogen [Mass/Vol] 53 mg/dL High 4-19 [facility] Comment on above: Order Comment: 207.1 Performed By: #### L 501.5200, L100.0500, L500.2500, L300.3900 #### [facility] [address] [place], [address] CBC-Complete Blood Cnt No Di ffon 04-25-2025 Erythrocyte distribution width (RBC) [Ratio] 18.4 % High 11.6-14.6 [facility] Comment on above: Order Comment: 207.1 Performed By: #### L 501.5200, L100.0500, L500.2500, L300.3900 #### [facility] [address] [place], [address] Hematocrit (Bld) [Volume fraction] 27.2 % Low 37-47 [facility] Comment on above: Order Comment: 207.1 Performed By: #### L 501.5200, L100.0500, L500.2500, L300.3900 #### [facility] [address] [place], [address] Hemoglobin (Bld) [Mass/Vol] 8.2 g/dL Low 12.0-15.0 [facility] Comment on above: Order Comment: 207.1 Performed By: #### L 501.5200, L100.0500, L500.2500, L300.3900 #### [facility] [address] [place], [address] MCH (RBC) [Entitic mass] 28.8 pg Normal 27.0-32.0 [facility] Comment on above: Order Comment: 207.1 Performed By: #### L 501.5200, L100.0500, L500.2500, L300.3900 #### [facility] [address] [place], [address] MCHC (RBC) [Mass/Vol] 30.1 g/dL Low 32-36 [facility] Comment on above: Order Comment: 207.1 Performed By: #### L 501.5200, L100.0500, L500.2500, L300.3900 #### [facility] [address] [place], [address] MCV (RBC) [Entitic vol] 95.4 fL Normal 81-99 [facility] Comment on above: Order Comment: 207.1 Performed By: #### L 501.5200, L100.0500, L500.2500, L300.3900 #### [facility] [address] [place], [address] Platelet mean volume (Bld) [Entitic vol] 8.7 fL Normal 6.2-12.0 [facility] Comment on above: Order Comment: 207.1 Performed By: #### L 501.5200, L100.0500, L500.2500, L300.3900 #### [facility] [address] [place], [address] Platelets (Bld) [#/Vol] 324 10*3/uL Normal 150-450 [facility] Comment on above: Order Comment: 207.1 Performed By: #### L 501.5200, L100.0500, L500.2500, L300.3900 #### [facility] [address] [place], [address] RBC (Bld) [#/Vol] 2.85 10*6/uL Low 4.2-5.4 [facility] Comment on above: Order Comment: 207.1 Performed By: #### L 501.5200, L100.0500, L500.2500, L300.3900 #### [facility] [address] [place], [address] RDW SD 61.6 fl High 35.1-43.9 [facility] Comment on above: Order Comment: 207.1 Performed By: #### L 501.5200, L100.0500, L500.2500, L300.3900 #### [facility] [address] [place], [address] WBC (Bld) [#/Vol] 17.8 10*3/uL High 4.4-11.0 [facility] Comment on above: Order Comment: 207.1 Performed By: #### L 501.5200, L100.0500, L500.2500, L300.3900 #### [facility] [address] [place], [address] Magnesiumon 04-25-2025 Magnesium [Mass/Vol] 3.1 mg/dL High 1.5-2.2 [facility] Comment on above: Order Comment: 207.1 Performed By: #### L 501.5200, L100.0500, L500.2500, L300.3900 #### [facility] [address] [place], [address] Prothrombin Time w/INRon INR Coag (PPP) [Relative time] 2.4 {INR} Normal [facility] Comment on above: Order Comment: 207.1 Performed By: #### L 501.5200, L100.0500, L500.2500, L300.3900 #### [facility] [address] [place], [address] PT Coag (PPP) [Time] 26.8 s High 11.7-14.9 [facility] Comment on above: Order Comment: 207.1 Performed By: #### L 501.5200, L100.0500, L500.2500, L300.3900 #### [facility] [address] [place], [address] CNPNon 04-24-2025 CNPN Normal [facility] Prothrombin Time w/INRon INR Coag (PPP) [Relative time] 2.4 {INR} Normal [facility] Comment on above: Performed By: #### L 300.3900 #### [facility] [address] [place], [address] PT Coag (PPP) [Time] 26.3 s High 11.7-14.9 [facility] Comment on above: Performed By: #### L 300.3900 #### [facility] [address] [place], [address] Basic metabolic 2000 panelon 04-22-2025 Anion gap [Moles/Vol] 11 mmol/L Normal 8-15 [facility] Comment on above: Order Comment: Speci men Type: BLOOD SPECIMENOrdering Facility: [facility] Address: [address] [place] [address] Performed By: #### 2 4321-2 ####[facility]ORYCLIA [id number] [place] [id number] [place] Calcium [Mass/Vol] 8.3 mg/dL Low 8.5-10.2 [facility] Comment on above: Order Comment: Speci men Type: BLOOD SPECIMENOrdering Facility: [facility] Address: [address] [place] [address] Performed By: #### 2 4321-2 ####[facility]ORYCLIA [id number] [place] [id number] [place] Chloride [Moles/Vol] 97 mmol/L Low 98-107 [facility] Comment on above: Order Comment: Speci men Type: BLOOD SPECIMENOrdering Facility: [facility] Address: [address] [place] [address] Performed By: #### 2 4321-2 ####[facility]ORYCLIA [id number] [place] [id number] [place] CO2 [Moles/Vol] 23 mmol/L Normal 22-30 [facility] Comment on above: Order Comment: Speci men Type: BLOOD SPECIMENOrdering Facility: [facility] Address: [address] [place] [address] Performed By: #### 2 4321-2 ####[facility] [id number] [address] STATES OF [facility] Creatinine [Mass/Vol] 0.55 mg/dL Low 0.58-0.96 [facility] Comment on above: Order Comment: Speci men Type: BLOOD SPECIMENOrdering Facility: [facility] Address: [address] [place] [address] Performed By: #### 2 4321-2 ####[facility]ORYCLIA [id number] [address] [place] eGFRcr SerPlBld CKD-EPI 2020 96 mL/min/1.73m??? Normal >=60 [facility] Comment on above: Order Comment: Speci men Type: BLOOD SPECIMENOrdering Facility: [facility] Address: [address] [place] [address] Result Comment: Yessica mated Glomerular Filtration Rate [...] actual GFR. Performed By: #### 2 4321-2 ####[facility]ORYCLIA [id number] [place] [address] [place] Glucose [Mass/Vol] 138 mg/dL High 74-99 [facility] Comment on above: Order Comment: Speci men Type: BLOOD SPECIMENOrdering Facility: [facility] Address: [address] [place], [place] [address] Result Comment: The [place] [employer] (ADA) provides guidance for cutoff [...] Standards of Medical Care in Diabetes 2016, [place] [employer]. Diabetes Care. 2016.39(Suppl 1). Performed By: #### 2 4321-2 ####[facility]ATORYCLIA [id number] [place] [address] [place] Potassium [Moles/Vol] 4.4 mmol/L Normal 3.7-5.1 [facility] Comment on above: Order Comment: Víctori men Type: BLOOD SPECIMENOrdering Facility: [facility] Address: [address] [place] [address] Performed By: #### 2 4321-2 ####[facility]ORYCLIA [id number] [place] [address] [place] Sodium [Moles/Vol] 131 mmol/L Low 136-144 [facility] Comment on above: Order Comment: Speci men Type: BLOOD SPECIMENOrdering Facility: [facility] Address: [address] [place] [address] Performed By: #### 2 4321-2 ####[facility]ORYCLIA [id number] [place] [address] [place] Urea nitrogen [Mass/Vol] 28 mg/dL High 7-21 [facility] Comment on above: Order Comment: Speci men Type: BLOOD SPECIMENOrdering Facility: [facility] Address: [address] [place] [address] Performed By: #### 2 4321-2 ####[facility]ORYCLIA [id number] [address] [place] CASE MANAGEMon 04-22-2025 CASE MANAGEM Normal [facility] CASE MANAGEM Normal [facility] CBC panel Auto (Bld)on 04-22 Erythrocyte distribution width (RBC) [Ratio] 17.4 % High 11.5-15.0 [facility] Comment on above: Order Comment: Speci men Type: BLOOD SPECIMENOrdering Facility: [facility] Address: [address] [place] [address] Performed By: #### 5 8410-2 ####[facility]ORYCLIA [id number] [address] STATES [facility] Hematocrit (Bld) [Volume fraction] 29.1 % Low 36.0-46.0 [facility] Comment on above: Order Comment: Speci men Type: BLOOD SPECIMENOrdering Facility: [facility] Address: [address] [place] [address] Performed By: #### 5 8410-2 ####[facility]ORYCLIA [id number] [address] [place] Hemoglobin (Bld) [Mass/Vol] 9.4 g/dL Low 11.5-15.5 [facility] Comment on above: Order Comment: Speci men Type: BLOOD SPECIMENOrdering Facility: [facility] Address: [address] [place] [address] Performed By: #### 5 8410-2 ####[facility]ORYCLIA [id number] [address] [place] MCH (RBC) [Entitic mass] 29.8 pg Normal 26.0-34.0 [facility] Comment on above: Order Comment: Speci men Type: BLOOD SPECIMENOrdering Facility: [facility] Address: [address] [place] [address] Performed By: #### 5 8410-2 ####[facility]ORYCLIA [id number] [address] STATES OF [facility] MCHC (RBC) [Mass/Vol] 32.3 g/dL Normal 30.5-36.0 [facility] Comment on above: Order Comment: Speci men Type: BLOOD SPECIMENOrdering Facility: [facility] Address: [address] [place] [address] Performed By: #### 5 8410-2 ####[facility]ORYCLIA [id number] [address] OF [facility] MCV (RBC) [Entitic vol] 92.4 fL Normal 80.0-100.0 [facility] Comment on above: Order Comment: Speci men Type: BLOOD SPECIMENOrdering Facility: [facility] Address: [address] [place] [address] Performed By: #### 5 8410-2 ####[facility]ORYCLIA [id number] [address] Nucleated RBC (Bld) [#/Vol] 10*3/uL Normal <0.01 [facility] Comment on above: Order Comment: Speci men Type: BLOOD SPECIMENOrdering Facility: [facility] Address: [address] [place] [address] Performed By: #### 5 8410-2 ####[facility]ORYCLIA [id number] [address] [place] Platelet mean volume (Bld) [Entitic vol] 9.0 fL Normal 9.0-12.7 [facility] Comment on above: Order Comment: Speci men Type: BLOOD SPECIMENOrdering Facility: [facility] Address: [address] [place] [address] Performed By: #### 5 8410-2 ####[facility]ORYCLIA [id number] [address] [place] Platelets (Bld) [#/Vol] 267 10*3/uL Normal 150-400 [facility] Comment on above: Order Comment: Speci men Type: BLOOD SPECIMENOrdering Facility: [facility] Address: [address] [place] [address] Performed By: #### 5 8410-2 ####[facility]ORYCLIA [id number] [address] STATES OF [facility] RBC (Bld) [#/Vol] 3.15 10*6/uL Low 3.90-5.20 [facility] Comment on above: Order Comment: Speci men Type: BLOOD SPECIMENOrdering Facility: [facility] Address: [address] [place] [address] Performed By: #### 5 8410-2 ####[facility]ORYCLIA [id number] [address] WBC (Bld) [#/Vol] 15.78 10*3/uL High 3.70-11.00 [facility] Comment on above: Order Comment: Speci men Type: BLOOD SPECIMENOrdering Facility: [facility] Address: [address] [place] [address] Performed By: #### 5 8410-2 ####[facility]ORYCLIA [id number] [address] CNDSon 04-22-2025 CNDS Normal [facility] CONSULT PROGon 04-22-2025 CONSULT PROG Normal [facility] PT panel Coag (PPP)on 2024 INR Coag (PPP) [Relative time] 2.7 {INR} High 0.9-1.3 [facility] Comment on above: Order Comment: Speci men Type: BLOOD SPECIMENOrdering Facility: [facility] Address: [address] [place] [address] Result Comment: Tequila min K Antagonist (VKA) Therapeutic Range: INR 2 to 3 (Target INR of 2.5)Note: For patients treated with VKA drugs, such as warfarin, the [place] [employer] 2012 Guideline recommends [...] al. Chest 2012, 141:7S-47SNishimmary RA, et al. [facility] 2017, 70: 252-289 Performed By: #### 3 4528-0 ####[facility]ATORYCLIA [id number] [place] [address] [place] PT Coag (PPP) [Time] 25.5 s High 9.7-13.0 [facility] Comment on above: Order Comment: Franco newton Type: BLOOD SPECIMENOrdering Facility: [facility] Address: [address] [place] [address] Performed By: #### 3 4528-0 ####[facility]ORYCLIA [id number] [place] [address] [place] Basic metabolic 2000 panelon 04-21-2025 Anion gap [Moles/Vol] 12 mmol/L Normal 8-15 [facility] Comment on above: Order Comment: Franco newton Type: BLOOD SPECIMENOrdering Facility: [facility] Address: [address] [place] [address] Performed By: #### 2 777-1, 67701-1 ####[facility]ORYCLIA [id number] [address] [place] Calcium [Mass/Vol] 8.5 mg/dL Normal 8.5-10.2 [facility] Comment on above: Order Comment: Franco newton Type: BLOOD SPECIMENOrdering Facility: [facility] Address: [address] [place] [address] Performed By: #### 2 777-1, 29100-6 ####[facility]ORYCLIA [id number] [address] STATES [facility] Chloride [Moles/Vol] 97 mmol/L Low 98-107 [facility] Comment on above: Order Comment: Speci men Type: BLOOD SPECIMENOrdering Facility: [facility] Address: [address] [place] [address] Performed By: #### 2 777-1, 42865-8 ####[facility]ORYCLIA [id number] [address] STATES OF [facility] CO2 [Moles/Vol] 23 mmol/L Normal 22-30 [facility] Comment on above: Order Comment: Speci men Type: BLOOD SPECIMENOrdering Facility: [facility] Address: [address] [place] [address] Performed By: #### 2 777-1, 14182-5 ####[facility]ITALCL[facility] [id number] [address] STATES OF [facility] Creatinine [Mass/Vol] 0.51 mg/dL Low 0.58-0.96 [facility] Comment on above: Order Comment: Speci men Type: BLOOD SPECIMENOrdering Facility: [facility] Address: [address] [place] [address] Performed By: #### 2 777-1, 60932-9 ####[facility]ITALCLIA [id number] [address] eGFRcr SerPlBld CKD-EPI 2020 98 mL/min/1.73m??? Normal >=60 [facility] Comment on above: Order Comment: Speci men Type: BLOOD SPECIMENOrdering Facility: [facility] Address: [address] [place] [address] Result Comment: Yessica mated Glomerular Filtration Rate [...] actual GFR. Performed By: #### 2 777-1, 84123-4 ####[facility]ORYCLIA [id number] [place] [address] [place] Glucose [Mass/Vol] 153 mg/dL High 74-99 [facility] Comment on above: Order Comment: Franco newton Type: BLOOD SPECIMENOrdering Facility: [facility] Address: [address] [place] [address] Result Comment: The [place] [employer] (ADA) provides guidance for cutoff [...] Standards of Medical Care in Diabetes 2016, [place] [employer]. Diabetes Care. 2016.39(Suppl 1). Performed By: #### 2 777-1, 04745-4 ####[facility]ORYCLIA [id number] [place] [address] [place] Potassium [Moles/Vol] 4.8 mmol/L Normal 3.7-5.1 [facility] Comment on above: Order Comment: Franco newton Type: BLOOD SPECIMENOrdering Facility: [facility] Address: [address] [place] [address] Performed By: #### 2 777-1, 18996-8 ####[facility]ORYCLIA [id number] [place] [address] [place] Sodium [Moles/Vol] 132 mmol/L Low 136-144 [facility] Comment on above: Order Comment: Franco men Type: BLOOD SPECIMENOrdering Facility: [facility] Address: [address] [place] [address] Performed By: #### 2 777-1, 91382-4 ####[facility]ORYCLIA [id number] [place] [address] [place] Urea nitrogen [Mass/Vol] 26 mg/dL High 7-21 [facility] Comment on above: Order Comment: Specklaudia aman Type: BLOOD SPECIMENOrdering Facility: [facility] Address: [address] [place] [address] [place] [address] Performed By: #### 2 777-1, 31210-8 ####[facility]ORYCLIA [id number] [address] [place] CASE MANAGEMon 04-21-2025 CASE MANAGEM Normal [facility] CONSULT PROGon 04-21-2025 CONSULT PROG Normal [facility] ECG COMPLETEon 04-21-2025 ECG COMPLETE Normal [facility] PT panel Coag (PPP)on 2024 INR Coag (PPP) [Relative time] 1.6 {INR} High 0.9-1.3 [facility] Comment on above: Order Comment: Franco newton Type: BLOOD SPECIMENOrdering Facility: [facility] Address: [facility] [place] [address] Result Comment: Tequila min K Antagonist (VKA) Therapeutic Range: INR 2 to 3 (Target INR of 2.5)Note: For patients treated with VKA drugs, such as warfarin, the [place] [employer] 2012 Guideline recommends [...] al. Chest 2012, 141:7S-47SNishimura RA, et al. [facility] 2017, 70: 252-289 Performed By: #### 3 4528-0 ####[facility]ORYCLIA [id number] [address] [place] PT Coag (PPP) [Time] 15.4 s High 9.7-13.0 [facility] Comment on above: Order Comment: Speci men Type: BLOOD SPECIMENOrdering Facility: [facility] Address: [address] [place] [address] Performed By: #### 3 4528-0 ####[facility]ORYCLIA [id number] [place] [address] [place] Phosphate SerPl-mCncon 04-21 Phosphate [Mass/Vol] 3.7 mg/dL Normal 2.7-4.8 [facility] Comment on above: Order Comment: Speci men Type: BLOOD SPECIMENOrdering Facility: [facility] Address: [address] [place] [address] Performed By: #### 2 777-1, 86976-4 ####[facility]ATORYCLIA [id number] [address] [place] THERAPY NTon 04-21-2025 THERAPY NT Normal [facility] THERAPY NT Normal [facility] Basic metabolic 2000 panelon 04-20-2025 Anion gap [Moles/Vol] 10 mmol/L Normal 8-15 [facility] Comment on above: Order Comment: Speci men Type: BLOOD SPECIMENOrdering Facility: [facility] Address: [address] [place] [address] Performed By: #### 2 777-1, 55650-1 ####[facility]ATORYCLIA [id number] [place] [address] [place] Calcium [Mass/Vol] 8.4 mg/dL Low 8.5-10.2 [facility] Comment on above: Order Comment: Speci men Type: BLOOD SPECIMENOrdering Facility: [facility] Address: [address] [place] [address] Performed By: #### 2 777-1, 35836-5 ####[facility]ATORYCLIA [id number] [place] [address] [place] Chloride [Moles/Vol] 101 mmol/L Normal 98-107 [facility] Comment on above: Order Comment: Speci men Type: BLOOD SPECIMENOrdering Facility: [facility] Address: [address] [place] [address] Performed By: #### 2 777-1, 31917-3 ####[facility] [id number] [address] [place] CO2 [Moles/Vol] 23 mmol/L Normal 22-30 [facility] Comment on above: Order Comment: Speci men Type: BLOOD SPECIMENOrdering Facility: [facility] Address: [address] [place] [address] Performed By: #### 2 777-1, 42414-2 ####[facility]ITAL[facility] [id number] [address] STATES OF [facility] Creatinine [Mass/Vol] 0.53 mg/dL Low 0.58-0.96 [facility] Comment on above: Order Comment: Speci men Type: BLOOD SPECIMENOrdering Facility: [facility] Address: [address] [place] [address] Performed By: #### 2 777-1, 34176-2 ####[facility]ITALCLIA [id number] [address] eGFRcr SerPlBld CKD-EPI 2020 97 mL/min/1.73m??? Normal >=60 [facility] Comment on above: Order Comment: Speci men Type: BLOOD SPECIMENOrdering Facility: [facility] Address: [address] [place] [address] Result Comment: Yessica mated Glomerular Filtration Rate [...] actual GFR. Performed By: #### 2 777-1, 96011-9 ####[facility]ORYCLIA [id number] [address] [place] Glucose [Mass/Vol] 116 mg/dL High 74-99 [facility] Comment on above: Order Comment: Speci men Type: BLOOD SPECIMENOrdering Facility: [facility] Address: [address] [place] [address] Result Comment: The [place] [employer] (ADA) provides guidance for cutoff [...] Standards of Medical Care in Diabetes 2016, [place] [employer]. Diabetes Care. 2016.39(Suppl 1). Performed By: #### 2 777-1, 80199-9 ####[facility]ATORYCLIA [id number] [place] [address] [place] Potassium [Moles/Vol] 4.8 mmol/L Normal 3.7-5.1 [facility] Comment on above: Order Comment: Franco aman Type: BLOOD SPECIMENOrdering Facility: [facility] Address: [address] [place] [address] Performed By: #### 2 777-1, 80370-5 ####[facility]ATORYCLIA [id number] [place] [address] [place] Sodium [Moles/Vol] 134 mmol/L Low 136-144 [facility] Comment on above: Order Comment: Víctori men Type: BLOOD SPECIMENOrdering Facility: [facility] Address: [address] [place] [address] Performed By: #### 2 777-1, 72195-0 ####[facility]ATORYCLIA [id number] [place] [address] [place] Urea nitrogen [Mass/Vol] 20 mg/dL Normal 7-21 [facility] Comment on above: Order Comment: Speci men Type: BLOOD SPECIMENOrdering Facility: [facility] Address: [address] [place] [address] Performed By: #### 2 777-1, 99277-7 ####[facility]ATORYCLIA [id number] [address] [place] CASE MANAGEMon 04-20-2025 CASE MANAGEM Normal [facility] CBC panel Auto (Bld)on 04-20 Erythrocyte distribution width (RBC) [Ratio] 17.1 % High 11.5-15.0 [facility] Comment on above: Order Comment: Speci men Type: BLOOD SPECIMENOrdering Facility: [facility] Address: [address] [place] [address] Performed By: #### 5 8410-2 ####[facility]ATORYCLIA [id number] [address] [place] Hematocrit (Bld) [Volume fraction] 25.6 % Low 36.0-46.0 [facility] Comment on above: Order Comment: Speci men Type: BLOOD SPECIMENOrdering Facility: [facility] Address: [address] [place] [address] Performed By: #### 5 8410-2 ####[facility]ATORYCLIA [id number] [address] [place] Hemoglobin (Bld) [Mass/Vol] 8.3 g/dL Low 11.5-15.5 [facility] Comment on above: Order Comment: Speci men Type: BLOOD SPECIMENOrdering Facility: [facility] Address: [address] [place] [address] Performed By: #### 5 8410-2 ####[facility]ATORYCLIA [id number] [address] [place] MCH (RBC) [Entitic mass] 29.9 pg Normal 26.0-34.0 [facility] Comment on above: Order Comment: Speci men Type: BLOOD SPECIMENOrdering Facility: [facility] Address: [address] [place] [address] Performed By: #### 5 8410-2 ####[facility]ATORYCLIA [id number] [address] MCHC (RBC) [Mass/Vol] 32.4 g/dL Normal 30.5-36.0 [facility] Comment on above: Order Comment: Speci men Type: BLOOD SPECIMENOrdering Facility: [facility] Address: [address] [place] [address] Performed By: #### 5 8410-2 ####[facility]ATORYCLIA [id number] [address] MCV (RBC) [Entitic vol] 92.1 fL Normal 80.0-100.0 [facility] Comment on above: Order Comment: Speci men Type: BLOOD SPECIMENOrdering Facility: [facility] Address: [address] [place] [address] Performed By: #### 5 8410-2 ####[facility]ATORYCLIA [id number] [address] Nucleated RBC (Bld) [#/Vol] 0.02 10*3/uL High <0.01 [facility] Comment on above: Order Comment: Speci men Type: BLOOD SPECIMENOrdering Facility: [facility] Address: [address] [place] [address] Performed By: #### 5 8410-2 ####[facility]ATORYCLIA [id number] [address] [place] Platelet mean volume (Bld) [Entitic vol] 9.2 fL Normal 9.0-12.7 [facility] Comment on above: Order Comment: Speci men Type: BLOOD SPECIMENOrdering Facility: [facility] Address: [address] [place] [address] Performed By: #### 5 8410-2 ####[facility]ATORYCLIA [id number] [address] [place] Platelets (Bld) [#/Vol] 210 10*3/uL Normal 150-400 [facility] Comment on above: Order Comment: Speci men Type: BLOOD SPECIMENOrdering Facility: [facility] Address: [address] [place] [address] Performed By: #### 5 8410-2 ####[facility]ATORYCLIA [id number] [address] [place] RBC (Bld) [#/Vol] 2.78 10*6/uL Low 3.90-5.20 [facility] Comment on above: Order Comment: Speci men Type: BLOOD SPECIMENOrdering Facility: [facility] Address: [address] [place] [address] Performed By: #### 5 8410-2 ####[facility]ATORYCLIA [id number] [address] [place] WBC (Bld) [#/Vol] 12.74 10*3/uL High 3.70-11.00 [facility] Comment on above: Order Comment: Speci men Type: BLOOD SPECIMENOrdering Facility: [facility] Address: [address] [place] [address] Performed By: #### 5 8410-2 ####[facility]ATORYCLIA [id number] [address] CONSULT PROGon 04-20-2025 CONSULT PROG Normal [facility] NUTRITIONon 04-20-2025 NUTRITION Normal [facility] PT EDon 04-20-2025 PT ED Normal [facility] PT panel Coag (PPP)on 2024 INR Coag (PPP) [Relative time] 1.2 {INR} Normal 0.9-1.3 [facility] Comment on above: Order Comment: Speci men Type: BLOOD SPECIMENOrdering Facility: [facility] Address: [address] [place] [address] Result Comment: Tequila min K Antagonist (VKA) Therapeutic Range: INR 2 to 3 (Target INR of 2.5)Note: For patients treated with VKA drugs, such as warfarin, the [place] [employer] 2012 Guideline recommends [...] al. Chest 2012, 141:7S-47SNishimura RA, et al. [facility] 2017, 70: 252-289 Performed By: #### 3 4528-0 ####[facility]ATORYCLIA [id number] [place] [address] [place] PT Coag (PPP) [Time] 12.0 s Normal 9.7-13.0 [facility] Comment on above: Order Comment: Speci men Type: BLOOD SPECIMENOrdering Facility: [facility] Address: [address] [place] [address] Performed By: #### 3 4528-0 ####[facility]ATORYCLIA [id number] [place] [address] [place] Phosphate SerPl-mCncon 04-20 Phosphate [Mass/Vol] 3.8 mg/dL Normal 2.7-4.8 [facility] Comment on above: Order Comment: Speci men Type: BLOOD SPECIMENOrdering Facility: [facility] Address: [address] [place] [address] Performed By: #### 2 777-1, 97719-7 ####[facility]ATORYCLIA [id number] [place] [address] [place] THERAPY NTon 04-20-2025 THERAPY NT Normal [facility] Basic metabolic 2000 panelon 04-19-2025 Anion gap [Moles/Vol] 9 mmol/L Normal 8-15 [facility] Comment on above: Order Comment: Speci men Type: BLOOD SPECIMENOrdering Facility: [facility] Address: [address] [place] [address] Performed By: #### 2 777-1, 01986-6 ####[facility]ORYCLIA [id number] [place] [address] [place] Calcium [Mass/Vol] 8.4 mg/dL Low 8.5-10.2 [facility] Comment on above: Order Comment: Speci men Type: BLOOD SPECIMENOrdering Facility: [facility] Address: [address] [place] [address] Performed By: #### 2 777-1, 69481-2 ####[facility]ATORYCLIA [id number] [place] [address] [place] Chloride [Moles/Vol] 101 mmol/L Normal 98-107 [facility] Comment on above: Order Comment: Speci men Type: BLOOD SPECIMENOrdering Facility: [facility] Address: [address] [place] [address] Performed By: #### 2 777-1, 24864-5 ####[facility]ATORYCLIA [id number] [place] [address] [place] CO2 [Moles/Vol] 24 mmol/L Normal 22-30 [facility] Comment on above: Order Comment: Speci men Type: BLOOD SPECIMENOrdering Facility: [facility] Address: [address] [place] [address] Performed By: #### 2 777-1, 69237-0 ####[facility]ATORYCLIA [id number] [place] [address] [place] Creatinine [Mass/Vol] 0.52 mg/dL Low 0.58-0.96 [facility] Comment on above: Order Comment: Speci men Type: BLOOD SPECIMENOrdering Facility: [facility] Address: [address] [place] [address] Performed By: #### 2 777-1, 28020-9 ####[facility]ATORYCLIA [id number] [place] [address] [place] eGFRcr SerPlBld CKD-EPI 2020 98 mL/min/1.73m??? Normal >=60 [facility] Comment on above: Order Comment: Franco newton Type: BLOOD SPECIMENOrdering Facility: [facility] Address: [address] [place] [address] Result Comment: Yessica mated Glomerular Filtration Rate [...] actual GFR. Performed By: #### 2 777-1, 34226-3 ####[facility]ATORYCLIA [id number] [place] [address] [place] Glucose [Mass/Vol] 135 mg/dL High 74-99 [facility] Comment on above: Order Comment: Franco newton Type: BLOOD SPECIMENOrdering Facility: [facility] Address: [address] [place] [address] Result Comment: The [place] [employer] (ADA) provides guidance for cutoff [...] Standards of Medical Care in Diabetes 2016, [place] [employer]. Diabetes Care. 2016.39(Suppl 1). Performed By: #### 2 777-1, 91944-3 ####[facility]ATORYCLIA [id number] [place] [address] [place] Potassium [Moles/Vol] 4.8 mmol/L Normal 3.7-5.1 [facility] Comment on above: Order Comment: Franco newton Type: BLOOD SPECIMENOrdering Facility: [facility] Address: [address] [place] [address] Performed By: #### 2 777-1, 96575-0 ####[facility]ATORYCLIA [id number] [place] [address] [place] Sodium [Moles/Vol] 134 mmol/L Low 136-144 [facility] Comment on above: Order Comment: Speci men Type: BLOOD SPECIMENOrdering Facility: [facility] Address: [address] [place] [address] Performed By: #### 2 777-1, 17470-2 ####[facility]ATORYCLIA [id number] [place] [address] [place] Urea nitrogen [Mass/Vol] 18 mg/dL Normal 7-21 [facility] Comment on above: Order Comment: Speci men Type: BLOOD SPECIMENOrdering Facility: [facility] Address: [address] [place] [address] Performed By: #### 2 777-1, 20115-9 ####[facility]ORYCLIA [id number] [address] [place] CASE MANAGEMon 04-19-2025 CASE MANAGEM Normal [facility] CBC W Auto Differential pane l (Bld)on 04-19-2025 Basophils (Bld) [#/Vol] 0.04 10*3/uL Normal <0.11 [facility] Comment on above: Order Comment: Speci men Type: BLOOD SPECIMENOrdering Facility: [facility] Address: [address] [place] [address] Performed By: #### 5 7021-8 ####[facility]ATORYCLIA [id number] [address] [place] Basophils/100 WBC (Bld) 0.3 % Normal [facility] Comment on above: Order Comment: Speci men Type: BLOOD SPECIMENOrdering Facility: [facility] Address: [address] [place] [address] Performed By: #### 5 7021-8 ####[facility]ATORYCLIA [id number] [address] STATES [facility] Differential cell count method Nom (Bld) Auto Normal [facility] Comment on above: Order Comment: Speci men Type: BLOOD SPECIMENOrdering Facility: [facility] Address: [facility] [place] [address] Performed By: #### 5 7021-8 ####[facility]ATORYCLIA [id number] [address] [place] Eosinophils (Bld) [#/Vol] 0.12 10*3/uL Normal <0.46 [facility] Comment on above: Order Comment: Speci men Type: BLOOD SPECIMENOrdering Facility: [facility] Address: [address] [place] [address] Performed By: #### 5 7021-8 ####[facility]ATORYCLIA [id number] [address] Eosinophils/100 WBC (Bld) 0.9 % Normal [facility] Comment on above: Order Comment: Speci men Type: BLOOD SPECIMENOrdering Facility: [facility] Address: [address] [place] [address] Performed By: #### 5 7021-8 ####[facility]ORYCLIA [id number] [address] [place] Erythrocyte distribution width (RBC) [Ratio] 16.8 % High 11.5-15.0 [facility] Comment on above: Order Comment: Speci men Type: BLOOD SPECIMENOrdering Facility: [facility] Address: [address] [place] [address] Performed By: #### 5 7021-8 ####[facility]ORYCLIA [id number] [address] [place] Hematocrit (Bld) [Volume fraction] 25.7 % Low 36.0-46.0 [facility] Comment on above: Order Comment: Speci men Type: BLOOD SPECIMENOrdering Facility: [facility] Address: [address] [place] [address] Performed By: #### 5 7021-8 ####[facility]ATORYCLIA [id number] [place] [address] [place] Hemoglobin (Bld) [Mass/Vol] 8.3 g/dL Low 11.5-15.5 [facility] Comment on above: Order Comment: Speci men Type: BLOOD SPECIMENOrdering Facility: [facility] Address: [address] [place] [address] Performed By: #### 5 7021-8 ####[facility]ATORYCLIA [id number] [place] [address] [place] Immature granulocytes (Bld) [#/Vol] 0.12 10*3/uL High <0.10 [facility] Comment on above: Order Comment: Speci men Type: BLOOD SPECIMENOrdering Facility: [facility] Address: [address] [place] [address] Performed By: #### 5 7021-8 ####[facility]ORYCLIA [id number] [address] [place] Immature granulocytes/100 WBC (Bld) 0.9 % Normal [facility] Comment on above: Order Comment: Speci men Type: BLOOD SPECIMENOrdering Facility: [facility] Address: [address] [place] [address] Performed By: #### 5 7021-8 ####[facility]ATORYCLIA [id number] [place] [address] [place] Lymphocytes (Bld) [#/Vol] 1.63 10*3/uL Normal 1.00-4.00 [facility] Comment on above: Order Comment: Speci men Type: BLOOD SPECIMENOrdering Facility: [facility] Address: [address] [place] [address] Performed By: #### 5 7021-8 ####[facility]ORYCLIA [id number] [address] [place] Lymphocytes/100 WBC (Bld) 12.9 % Normal [facility] Comment on above: Order Comment: Speci men Type: BLOOD SPECIMENOrdering Facility: [facility] Address: [address] [place] [address] Performed By: #### 5 7021-8 ####[facility]ATORYCLIA [id number] [address] STATES [facility] MCH (RBC) [Entitic mass] 29.3 pg Normal 26.0-34.0 [facility] Comment on above: Order Comment: Speci men Type: BLOOD SPECIMENOrdering Facility: [facility] Address: [address] [place] [address] Performed By: #### 5 7021-8 ####[facility]ORYCLIA [id number] [address] [place] MCHC (RBC) [Mass/Vol] 32.3 g/dL Normal 30.5-36.0 [facility] Comment on above: Order Comment: Speci men Type: BLOOD SPECIMENOrdering Facility: [facility] Address: [address] [place] [address] Performed By: #### 5 7021-8 ####[facility]ORYCLIA [id number] [address] [place] MCV (RBC) [Entitic vol] 90.8 fL Normal 80.0-100.0 [facility] Comment on above: Order Comment: Speci men Type: BLOOD SPECIMENOrdering Facility: [facility] Address: [address] [place] [address] Performed By: #### 5 7021-8 ####[facility]ORYCLIA [id number] [address] [place] Monocytes (Bld) [#/Vol] 1.21 10*3/uL High <0.87 [facility] Comment on above: Order Comment: Speci men Type: BLOOD SPECIMENOrdering Facility: [facility] Address: [address] [place] [address] Performed By: #### 5 7021-8 ####[facility]ORYCLIA [id number] [address] Monocytes/100 WBC (Bld) 9.6 % Normal [facility] Comment on above: Order Comment: Speci men Type: BLOOD SPECIMENOrdering Facility: [facility] Address: [address] [place] [address] Performed By: #### 5 7021-8 ####[facility]ORYCLIA [id number] [place] [address] [place] Neutrophils (Bld) [#/Vol] 9.54 10*3/uL High 1.45-7.50 [facility] Comment on above: Order Comment: Speci men Type: BLOOD SPECIMENOrdering Facility: [facility] Address: [address] [place] [address] Performed By: #### 5 7021-8 ####[facility]ORYCLIA [id number] [address] [place] Neutrophils/100 WBC (Bld) 75.4 % Normal [facility] Comment on above: Order Comment: Speci men Type: BLOOD SPECIMENOrdering Facility: [facility] Address: [address] [place] [address] Performed By: #### 5 7021-8 ####[facility]ORYCLIA [id number] [place] [address] [place] Nucleated RBC (Bld) [#/Vol] 0.02 10*3/uL High <0.01 [facility] Comment on above: Order Comment: Speci men Type: BLOOD SPECIMENOrdering Facility: [facility] Address: [address] [place] [address] Performed By: #### 5 7021-8 ####[facility]ORYCLIA [id number] [place] [address] [place] Nucleated RBC/100 WBC (Bld) [Ratio] 0.2 /100 WBC Normal [facility] Comment on above: Order Comment: Speci men Type: BLOOD SPECIMENOrdering Facility: [facility] Address: [address] [place] [address] Performed By: #### 5 7021-8 ####[facility]ORYCLIA [id number] [place] [address] [place] Platelet mean volume (Bld) [Entitic vol] 9.2 fL Normal 9.0-12.7 [facility] Comment on above: Order Comment: Speci men Type: BLOOD SPECIMENOrdering Facility: [facility] Address: [address] [place] [address] Performed By: #### 5 7021-8 ####[facility]ORYCLIA [id number] [address] STATES OF [facility] Platelets (Bld) [#/Vol] 202 10*3/uL Normal 150-400 [facility] Comment on above: Order Comment: Speci men Type: BLOOD SPECIMENOrdering Facility: [facility] Address: [address] [place] [address] Performed By: #### 5 7021-8 ####[facility]ORYCLIA [id number] [place] [address] [place] [facility] RBC (Bld) [#/Vol] 2.83 10*6/uL Low 3.90-5.20 [facility] Comment on above: Order Comment: Speci men Type: BLOOD SPECIMENOrdering Facility: [facility] Address: [address] [place] [address] Performed By: #### 5 7021-8 ####[facility]ATORYCLIA [id number] [address] [place] WBC (Bld) [#/Vol] 12.66 10*3/uL High 3.70-11.00 [facility] Comment on above: Order Comment: Speci men Type: BLOOD SPECIMENOrdering Facility: [facility] Address: [address] [place] [address] Performed By: #### 5 7021-8 ####[facility]ORATORYCLIA [id number] [address] CONSULT PROGon 04-19-2025 CONSULT PROG Normal [facility] NURSING PROGon 04-19-2025 NURSING PROG Normal [facility] PT panel Coag (PPP)on 2024 INR Coag (PPP) [Relative time] 1.2 {INR} Normal 0.9-1.3 [facility] Comment on above: Order Comment: Franco newton Type: BLOOD SPECIMENOrdering Facility: [facility] Address: [address] [place] [address] Result Comment: Tequila min K Antagonist (VKA) Therapeutic Range: INR 2 to 3 (Target INR of 2.5)Note: For patients treated with VKA drugs, such as warfarin, the [place] [employer] 2012 Guideline recommends [...] al. Chest 2012, 141:7S-47SNishimmary RA, et al. [facility] 2017, 70: 252-289 Performed By: #### 3 4528-0 ####[facility]ATORYCLIA [id number] [place] [address] [place] PT Coag (PPP) [Time] 11.6 s Normal 9.7-13.0 [facility] Comment on above: Order Comment: Franco newton Type: BLOOD SPECIMENOrdering Facility: [facility] Address: [address] [id number] Performed By: #### 3 4528-0 ####[facility]ATORYCLIA [id number] [place] [address] [place] [facility]ate [facility] Phosphate [Mass/Vol] 3.2 mg/dL Normal 2.7-4.8 [facility] Comment on above: Order Comment: Franco newton Type: BLOOD SPECIMENOrdering Facility: [facility] Address: [address] [place] [address] Performed By: #### 2 777-, 30362-0 ####[facility]ATORYCLIA [id number] [place] [address] [place] THERAPY NTon 04-19-2025 THERAPY NT Normal [facility] Basic metabolic 2000 panelon 04-18-2025 Anion gap [Moles/Vol] 10 mmol/L Normal 8-15 [facility] Comment on above: Order Comment: Speci men Type: BLOOD SPECIMENOrdering Facility: [facility] Address: [address] [place] [address] Performed By: #### 2 777-1, 06546-9 ####[facility]ATORYCLIA [id number] [place] [address] [place] Calcium [Mass/Vol] 8.0 mg/dL Low 8.5-10.2 [facility] Comment on above: Order Comment: Speci men Type: BLOOD SPECIMENOrdering Facility: [facility] Address: [address] [place] [address] Performed By: #### 2 777-1, 03586-7 ####[facility]ATORYCLIA [id number] [place] [address] [place] Chloride [Moles/Vol] 99 mmol/L Normal 98-107 [facility] Comment on above: Order Comment: Speci men Type: BLOOD SPECIMENOrdering Facility: [facility] Address: [address] [place] [address] Performed By: #### 2 777-1, 58993-2 ####[facility]ATORYCLIA [id number] [place] [id number] [place] CO2 [Moles/Vol] 23 mmol/L Normal 22-30 [facility] Comment on above: Order Comment: Speci men Type: BLOOD SPECIMENOrdering Facility: [facility] Address: [address] [place] [address] Performed By: #### 2 777-1, 88943-8 ####[facility]ATORYCLIA [id number] [place] [address] [place] Creatinine [Mass/Vol] 0.53 mg/dL Low 0.58-0.96 [facility] Comment on above: Order Comment: Franco newton Type: BLOOD SPECIMENOrdering Facility: [facility] Address: [address] [facility] [place] [address] Performed By: #### 2 777-1, 75279-1 ####[facility]ATORYCLIA [id number] [place] [id number] [place] eGFRcr SerPlBld CKD-EPI 2020 97 mL/min/1.73m??? Normal >=60 [facility] Comment on above: Order Comment: Franco newton Type: BLOOD SPECIMENOrdering Facility: [facility] Address: [address] [place] [address] Result Comment: Yessica mated Glomerular Filtration Rate [...] actual GFR. Performed By: #### 2 777-1, 46108-6 ####[facility]ATORYCLIA [id number] [place] [address] [place] Glucose [Mass/Vol] 194 mg/dL High 74-99 [facility] Comment on above: Order Comment: Franco aman Type: BLOOD SPECIMENOrdering Facility: [facility] Address: [address] [place] [address] Result Comment: The [place] [employer] (ADA) provides guidance for cutoff [...] Standards of Medical Care in Diabetes 2016, [place] [employer]. Diabetes Care. 2016.39(Suppl 1). Performed By: #### 2 777-1, 96159-4 ####[facility]ATORYCLIA [id number] [address] STATES OF [facility] Potassium [Moles/Vol] 4.5 mmol/L Normal 3.7-5.1 [facility] Comment on above: Order Comment: Speci men Type: BLOOD SPECIMENOrdering Facility: [facility] Address: [address] [place] [address] Performed By: #### 2 777-1, 57038-8 ####[facility]ATORYCLIA [id number] [address] STATES OF [facility] Sodium [Moles/Vol] 132 mmol/L Low 136-144 [facility] Comment on above: Order Comment: Speci men Type: BLOOD SPECIMENOrdering Facility: [facility] Address: [address] [place] [address] Performed By: #### 2 777-1, 33995-9 ####[facility]ATORYCLIA [id number] [address] STATES [facility] Urea nitrogen [Mass/Vol] 18 mg/dL Normal 7-21 [facility] Comment on above: Order Comment: Speci men Type: BLOOD SPECIMENOrdering Facility: [facility] Address: [address] [place] [address] Performed By: #### 2 777-1, 19598-6 ####[facility]ATORYCLIA [id number] [address] [place] CBC panel Auto (Bld)on 04-18 Erythrocyte distribution width (RBC) [Ratio] 16.1 % High 11.5-15.0 [facility] Comment on above: Order Comment: Speci men Type: BLOOD SPECIMENOrdering Facility: [facility] Address: [address] [place] [address] Performed By: #### 5 8410-2 ####[facility]ORATORYCLIA [id number] [place] [address] [place] Hematocrit (Bld) [Volume fraction] 25.0 % Low 36.0-46.0 [facility] Comment on above: Order Comment: Speci men Type: BLOOD SPECIMENOrdering Facility: [facility] Address: [address] [place] [address] Performed By: #### 5 8410-2 ####[facility]ATORYCLIA [id number] [address] STATES OF [facility] Hemoglobin (Bld) [Mass/Vol] 8.4 g/dL Low 11.5-15.5 [facility] Comment on above: Order Comment: Speci men Type: BLOOD SPECIMENOrdering Facility: [facility] Address: [address] [place] [address] Performed By: #### 5 8410-2 ####[facility]ATORYCLIA [id number] [address] [place] MCH (RBC) [Entitic mass] 30.0 pg Normal 26.0-34.0 [facility] Comment on above: Order Comment: Speci men Type: BLOOD SPECIMENOrdering Facility: [facility] Address: [address] [place] [address] Performed By: #### 5 8410-2 ####[facility]ATORYCLIA [id number] [address] [place] MCHC (RBC) [Mass/Vol] 33.6 g/dL Normal 30.5-36.0 [facility] Comment on above: Order Comment: Speci men Type: BLOOD SPECIMENOrdering Facility: [facility] Address: [address] [place] [address] Performed By: #### 5 8410-2 ####[facility]ATORYCLIA [id number] [address] MCV (RBC) [Entitic vol] 89.3 fL Normal 80.0-100.0 [facility] Comment on above: Order Comment: Speci men Type: BLOOD SPECIMENOrdering Facility: [facility] Address: [address] [place] [address] Performed By: #### 5 8410-2 ####[facility]ATORYCLIA [id number] [address] [place] Nucleated RBC (Bld) [#/Vol] 0.02 10*3/uL High <0.01 [facility] Comment on above: Order Comment: Speci men Type: BLOOD SPECIMENOrdering Facility: [facility] Address: [address] [place] [address] Performed By: #### 5 8410-2 ####[facility]ATORYCLIA [id number] [address] [place] Platelet mean volume (Bld) [Entitic vol] 9.3 fL Normal 9.0-12.7 [facility] Comment on above: Order Comment: Speci men Type: BLOOD SPECIMENOrdering Facility: [facility] Address: [address] [place] [address] Performed By: #### 5 8410-2 ####[facility]ATORYCLIA [id number] [address] [place] Platelets (Bld) [#/Vol] 182 10*3/uL Normal 150-400 [facility] Comment on above: Order Comment: Speci men Type: BLOOD SPECIMENOrdering Facility: [facility] Address: [address] [place] [address] Performed By: #### 5 8410-2 ####[facility]ATORYCLIA [id number] [address] [place] RBC (Bld) [#/Vol] 2.80 10*6/uL Low 3.90-5.20 [facility] Comment on above: Order Comment: Speci men Type: BLOOD SPECIMENOrdering Facility: [facility] Address: [address] [place] [address] Performed By: #### 5 8410-2 ####[facility]ATORYCLIA [id number] [address] [place] WBC (Bld) [#/Vol] 11.75 10*3/uL High 3.70-11.00 [facility] Comment on above: Order Comment: Speci men Type: BLOOD SPECIMENOrdering Facility: [facility] Address: [address] [place] [address] Performed By: #### 5 8410-2 ####[facility]ATORYCLIA [id number] [place] [address] [place] Hgb Bld-mCncon 04-18-2025 Hemoglobin (Bld) [Mass/Vol] 8.9 g/dL Low 11.5-15.5 [facility] Comment on above: Order Comment: Speci men Type: BLOOD SPECIMENOrdering Facility: [facility] Address: [address] [place] [address] Performed By: #### 7 18-7 ####[facility]ATORYCLIA [id number] [place] [address] [place] Phosphate SerPl-mCncon 04-18 Phosphate [Mass/Vol] 3.3 mg/dL Normal 2.7-4.8 [facility] Comment on above: Order Comment: Speci men Type: BLOOD SPECIMENOrdering Facility: [facility] Address: [address] [place] [address] Performed By: #### 2 777-1, 39096-6 ####[facility]ORYCLIA [id number] [place] [address] [place] THERAPY NTon 04-18-2025 THERAPY NT Normal [facility] aPTT PPPon 04-18-2025 aPTT Coag (PPP) [Time] 24.6 s Normal 23.0-32.4 [facility] Comment on above: Order Comment: Speci men Type: BLOOD SPECIMENOrdering Facility: [facility] Address: [address] [place] [address] Performed By: #### 1 4979-9 ####[facility]ATORYCLIA [id number] [place] [address] [place] aPTT Coag (PPP) [Time] 53.3 s High 23.0-32.4 [facility] Comment on above: Order Comment: Speci men Type: BLOOD SPECIMENOrdering Facility: [facility] Address: [address] [place] [address] Performed By: #### 1 4979-9 ####[facility]ATORYCLIA [id number] [address] [place] aPTT Coag (PPP) [Time] 64.8 s High 23.0-32.4 [facility] Comment on above: Order Comment: Speci men Type: BLOOD SPECIMENOrdering Facility: [facility] Address: [address] [place] [address] Performed By: #### 1 4979-9 ####[facility]ATORYCLIA [id number] [place] [address] [place] Basic metabolic 2000 panelon 04-17-2025 Anion gap [Moles/Vol] 7 mmol/L Low 8-15 [facility] Comment on above: Order Comment: Speci men Type: BLOOD SPECIMENOrdering Facility: [facility] Address: [address] [place] [address] Performed By: #### 2 777-1, 18663-8 ####[facility]ATORYCLIA [id number] [place] [address] [place] Calcium [Mass/Vol] 8.5 mg/dL Normal 8.5-10.2 [facility] Comment on above: Order Comment: Speci men Type: BLOOD SPECIMENOrdering Facility: [facility] Address: [address] [place] [address] Performed By: #### 2 777-1, 64021-3 ####[facility]ATORYCLIA [id number] [address] [place] Chloride [Moles/Vol] 98 mmol/L Normal 98-107 [facility] Comment on above: Order Comment: Speci men Type: BLOOD SPECIMENOrdering Facility: [facility] Address: [address] [place] [address] Performed By: #### 2 777-1, 71179-7 ####[facility]ATORYCLIA [id number] [address] [place] CO2 [Moles/Vol] 24 mmol/L Normal 22-30 [facility] Comment on above: Order Comment: Speci men Type: BLOOD SPECIMENOrdering Facility: [facility] Address: [address] [place] [address] Performed By: #### 2 777-1, 03687-7 ####[facility]ATORYCLIA [id number] [place] [address] [place] Creatinine [Mass/Vol] 0.66 mg/dL Normal 0.58-0.96 [facility] Comment on above: Order Comment: Speci men Type: BLOOD SPECIMENOrdering Facility: [facility] Address: [address] [place] [address] Performed By: #### 2 777-1, 90741-2 ####[facility]ATORYCLIA [id number] [address] eGFRcr SerPlBld CKD-EPI 2020 92 mL/min/1.73m??? Normal >=60 [facility] Comment on above: Order Comment: Speci men Type: BLOOD SPECIMENOrdering Facility: [facility] Address: [address] [place] [address] Result Comment: Yessica mated Glomerular Filtration Rate [...] actual GFR. Performed By: #### 2 777-1, 29449-6 ####[facility]ATORYCLIA [id number] [place] [address] [place] Glucose [Mass/Vol] 199 mg/dL High 74-99 [facility] Comment on above: Order Comment: Speci men Type: BLOOD SPECIMENOrdering Facility: [facility] Address: [address] [place] [address] Result Comment: The [place] [employer] (ADA) provides guidance for cutoff [...] Standards of Medical Care in Diabetes 2016, [place] [employer]. Diabetes Care. 2016.39(Suppl 1). Performed By: #### 2 777-1, 87890-5 ####[facility]ATORYCLIA [id number] [place] [address] [place] Potassium [Moles/Vol] 4.6 mmol/L Normal 3.7-5.1 [facility] Comment on above: Order Comment: Speci men Type: BLOOD SPECIMENOrdering Facility: [facility] Address: [address] [place] [address] Performed By: #### 2 777-1, 88368-6 ####[facility]ATORYCLIA [id number] [place] [address] [place] Sodium [Moles/Vol] 129 mmol/L Low 136-144 [facility] Comment on above: Order Comment: Franco newton Type: BLOOD SPECIMENOrdering Facility: [facility] Address: [address] [place] [address] Performed By: #### 2 777-1, 88148-1 ####[facility]ATORYCLIA [id number] [place] [address] [place] Urea nitrogen [Mass/Vol] 22 mg/dL High 7-21 [facility] Comment on above: Order Comment: Franco men Type: BLOOD SPECIMENOrdering Facility: [facility] Address: [address] [place] [address] Performed By: #### 2 777-1, 33319-2 ####[facility]ATORYCLIA [id number] [address] [place] CASE MANAGEMon 04-17-2025 CASE MANAGEM Normal [facility] CBC panel Auto (Bld)on 04-17 Erythrocyte distribution width (RBC) [Ratio] 15.2 % High 11.5-15.0 [facility] Comment on above: Order Comment: Speci men Type: BLOOD SPECIMENOrdering Facility: [facility] Address: [address] [place] [address] Performed By: #### 5 8410-2 ####[facility]ATORYCLIA [id number] [address] Hematocrit (Bld) [Volume fraction] 27.4 % Low 36.0-46.0 [facility] Comment on above: Order Comment: Speci men Type: BLOOD SPECIMENOrdering Facility: [facility] Address: [address] [place] [address] Performed By: #### 5 8410-2 ####[facility]ATORYCLIA [id number] [address] Hemoglobin (Bld) [Mass/Vol] 9.4 g/dL Low 11.5-15.5 [facility] Comment on above: Order Comment: Speci men Type: BLOOD SPECIMENOrdering Facility: [facility] Address: [address] [place] [address] Performed By: #### 5 8410-2 ####[facility]ATORYCLIA [id number] [address] STATES [facility] MCH (RBC) [Entitic mass] 30.0 pg Normal 26.0-34.0 [facility] Comment on above: Order Comment: Speci men Type: BLOOD SPECIMENOrdering Facility: [facility] Address: [address] [place] [address] Performed By: #### 5 8410-2 ####[facility]ATORYCLIA [id number] [address] [place] MCHC (RBC) [Mass/Vol] 34.3 g/dL Normal 30.5-36.0 [facility] Comment on above: Order Comment: Speci men Type: BLOOD SPECIMENOrdering Facility: [facility] Address: [address] [place] [address] Performed By: #### 5 8410-2 ####[facility]ATORYCLIA [id number] [address] OF [facility] MCV (RBC) [Entitic vol] 87.5 fL Normal 80.0-100.0 [facility] Comment on above: Order Comment: Speci men Type: BLOOD SPECIMENOrdering Facility: [facility] Address: [address] [place] [address] Performed By: #### 5 8410-2 ####[facility]ORYCLIA [id number] [address] Nucleated RBC (Bld) [#/Vol] 10*3/uL Normal <0.01 [facility] Comment on above: Order Comment: Speci men Type: BLOOD SPECIMENOrdering Facility: [facility] Address: [address] [place] [address] Performed By: #### 5 8410-2 ####[facility]ATORYCLIA [id number] [address] Platelet mean volume (Bld) [Entitic vol] 9.9 fL Normal 9.0-12.7 [facility] Comment on above: Order Comment: Speci men Type: BLOOD SPECIMENOrdering Facility: [facility] Address: [address] [place] [address] Performed By: #### 5 8410-2 ####[facility]ATORYCLIA [id number] [address] Platelets (Bld) [#/Vol] 185 10*3/uL Normal 150-400 [facility] Comment on above: Order Comment: Speci men Type: BLOOD SPECIMENOrdering Facility: [facility] Address: [address] [place] [address] Performed By: #### 5 8410-2 ####[facility]ATORYCLIA [id number] [address] RBC (Bld) [#/Vol] 3.13 10*6/uL Low 3.90-5.20 [facility] Comment on above: Order Comment: Speci men Type: BLOOD SPECIMENOrdering Facility: [facility] Address: [address] [place] [address] Performed By: #### 5 8410-2 ####[facility]ATORYCLIA [id number] [address] [place] WBC (Bld) [#/Vol] 11.87 10*3/uL High 3.70-11.00 [facility] Comment on above: Order Comment: Speci men Type: BLOOD SPECIMENOrdering Facility: [facility] Address: [address] [place] [address] Performed By: #### 5 8410-2 ####[facility]ATORYCLIA [id number] [address] OF [facility] CNCOon 04-17-2025 CNCO Letter Text Normal [facility] Hgb Bld-ncon 04-17-2025 Hemoglobin (Bld) [Mass/Vol] 8.3 g/dL Low 11.5-15.5 [facility] Comment on above: Order Comment: Speci men Type: BLOOD SPECIMENOrdering Facility: [facility] Address: [address] [place] [address] Performed By: #### 7 18-7 ####[facility]ORYCLIA [id number] [address] OF [facility] Phosphate SerPl-mCncon 04-17 Phosphate [Mass/Vol] 2.9 mg/dL Normal 2.7-4.8 [facility] Comment on above: Order Comment: Speci men Type: BLOOD SPECIMENOrdering Facility: [facility] Address: [address] [place] [address] Performed By: #### 2 777-1, 97378-4 ####[facility]ORYCLIA [id number] [address] OF [facility] THERAPY NTon 04-17-2025 THERAPY NT Normal [facility] THERAPY NT Normal [facility] aPTT PPPon 04-17-2025 aPTT Coag (PPP) [Time] s High 23.0-32.4 [facility] Comment on above: Order Comment: Speci men Type: BLOOD SPECIMENOrdering Facility: [facility] Address: [address] [place] [address] Performed By: #### 1 4979-9 ####[facility]ORYCLIA [id number] [address] aPTT Coag (PPP) [Time] 49.3 s High 23.0-32.4 [facility] Comment on above: Order Comment: Speci men Type: BLOOD SPECIMENOrdering Facility: [facility] Address: [address] [place] [address] Performed By: #### 1 4979-9 ####[facility]ORYCLIA [id number] [address] aPTT Coag (PPP) [Time] 96.7 s High 23.0-32.4 [facility] Comment on above: Order Comment: Speci men Type: BLOOD SPECIMENOrdering Facility: [facility] Address: [address] [place] [address] Performed By: #### 1 4979-9 ####[facility]ORYCLIA [id number] [address] aPTT Coag (PPP) [Time] s High 23.0-32.4 [facility] Comment on above: Order Comment: Speci men Type: BLOOD SPECIMENOrdering Facility: [facility] Address: [address] [place] [address] Performed By: #### 1 4979-9 ####[facility]ORYCLIA [id number] [address] aPTT Coag (PPP) [Time] 30.3 s Normal 23.0-32.4 [facility] Comment on above: Order Comment: Speci men Type: BLOOD SPECIMENOrdering Facility: [facility] Address: [address] [place] [address] Performed By: #### 1 4979-9 ####[facility]ATORYCLIA [id number] [place] [id number] [facility] aPTT Coag (PPP) [Time] 26.6 s Normal 23.0-32.4 [facility] Comment on above: Order Comment: Speci men Type: BLOOD SPECIMENOrdering Facility: [facility] Address: [address] [place] [address] Performed By: #### 1 4979-9 ####[facility] LABORATORYCLIA [id number] [place] [address] [facility] Basic metabolic 2000 panelon 04-16-2025 [place] gap [Moles/Vol] 10 mmol/L Normal 8-15 [facility] Comment on above: Order Comment: Speci men Type: BLOOD SPECIMENOrdering Facility: [facility] Address: [address] [place] [address] Performed By: #### 2 4321-2, 2777-1, 2-7, 09269-4, 27848-0 ####[facility] LABORATORYCLIA [id number] [place] [address] [place] Calcium [Mass/Vol] 7.9 mg/dL Low 8.5-10.2 [facility] Comment on above: Order Comment: Speci men Type: BLOOD SPECIMENOrdering Facility: [facility] Address: [address] [place] [address] Performed By: #### 2 4321-2, 2777-1, 4542-7, 76970-0, 36822-9 ####[facility]ORATORYCLIA [id number] [place] [id number] [place] Chloride [Moles/Vol] 96 mmol/L Low 98-107 [facility] Comment on above: Order Comment: Speci men Type: BLOOD SPECIMENOrdering Facility: [facility] Address: [address] [place] [address] Performed By: #### 2 4321-2, 2777-1, 4542-7, 78167-1, 81907-1 ####[facility]ITAL[facility]IA [id number] [place] [address] [place] [facility] CO2 [Moles/Vol] 22 mmol/L Normal 22-30 [facility] Comment on above: Order Comment: Speci men Type: BLOOD SPECIMENOrdering Facility: [facility] Address: [address] [place] [address] Performed By: #### 2 4321-2, 2777-1, 4541-7, , 04728-9 ####[facility]ITALCLIA [id number] [place] [address] [place] [facility] Creatinine [Mass/Vol] 0.79 mg/dL Normal 0.58-0.96 [facility] Comment on above: Order Comment: Speci men Type: BLOOD SPECIMENOrdering Facility: [facility] Address: [address] [place] [address] Performed By: #### 2 4321-2, 2777-1, 4541-7, , 55558-5 ####[facility]ITALIA [id number] [place] [id number] [place] eGFRcr SerPlBld CKD-EPI 2020 79 mL/min/1.73m??? Normal >=60 [facility] Comment on above: Order Comment: Speci men Type: BLOOD SPECIMENOrdering Facility: [facility] Address: [address] [place] [address] Result Comment: Yessica mated Glomerular Filtration Rate [...] Performed By: #### 2 4321-2, 2777-1, 2-7, 76800-1, 64237-9 ####[facility]ATORYCLIA [id number] [place] [address] [place] Glucose [Mass/Vol] 204 mg/dL High 74-99 [facility] Comment on above: Order Comment: Speci men Type: BLOOD SPECIMENOrdering Facility: [facility] Address: [address] [place] [address] Result Comment: The [place] [employer] (ADA) provides guidance for cutoff [...] Standards of Medical Care in Diabetes 2016, [place] [employer]. Diabetes Care. 2016.39(Suppl 1). Performed By: #### 2 4321-2, 2777-1, 4541-7, , 43908-3 ####[facility] LABORATORYCLIA [id number] [place] [address] [place] Potassium [Moles/Vol] 4.6 mmol/L Normal 3.7-5.1 [facility] Comment on above: Order Comment: Víctori men Type: BLOOD SPECIMENOrdering Facility: [facility] Address: [address] [place] [address] Performed By: #### 2 4321-2, 2777-1, 4541-7, , 42153-9 ####[facility]ATORYCLIA [id number] [place] [address] [place] Sodium [Moles/Vol] 128 mmol/L Low 136-144 [facility] Comment on above: Order Comment: Speci men Type: BLOOD SPECIMENOrdering Facility: [facility] Address: [address] [place] [address] Performed By: #### 2 4321-2, 2777-1, 2-7, , 84915-2 ####[facility]ATORYCLIA [id number] [place] [address] [place] Urea nitrogen [Mass/Vol] 34 mg/dL High 7-21 [facility] Comment on above: Order Comment: Speci men Type: BLOOD SPECIMENOrdering Facility: [facility] Address: [address] [place] [address] Performed By: #### 2 4321-2, 2777-1, 4542-7, 31510-9, 72089-5 ####[facility]ATORYCLIA [id number] [address] STATES OF [facility] CBC panel Auto (Bld)on 04-16 Erythrocyte distribution width (RBC) [Ratio] 14.7 % Normal 11.5-15.0 [facility] Comment on above: Order Comment: Speci men Type: BLOOD SPECIMENOrdering Facility: [facility] Address: [address] [place] [address] Performed By: #### 5 8410-2 ####[facility]ITALCLIA [id number] [address] [place] Hematocrit (Bld) [Volume fraction] 21.1 % Low 36.0-46.0 [facility] Comment on above: Order Comment: Speci men Type: BLOOD SPECIMENOrdering Facility: [facility] Address: [address] [place] [address] Performed By: #### 5 8410-2 ####[facility]ATORYCLIA [id number] [address] [place] Hemoglobin (Bld) [Mass/Vol] 7.1 g/dL Low 11.5-15.5 [facility] Comment on above: Order Comment: Speci men Type: BLOOD SPECIMENOrdering Facility: [facility] Address: [address] [place] [address] Performed By: #### 5 8410-2 ####[facility]ATORYCLIA [id number] [address] [place] MCH (RBC) [Entitic mass] 28.6 pg Normal 26.0-34.0 [facility] Comment on above: Order Comment: Speci men Type: BLOOD SPECIMENOrdering Facility: [facility] Address: [address] [place] [address] Performed By: #### 5 8410-2 ####[facility]ATORYCLIA [id number] [address] MCHC (RBC) [Mass/Vol] 33.6 g/dL Normal 30.5-36.0 [facility] Comment on above: Order Comment: Speci men Type: BLOOD SPECIMENOrdering Facility: [facility] Address: [address] [place] [address] Performed By: #### 5 8410-2 ####[facility]ATORYCLIA [id number] [address] [place] MCV (RBC) [Entitic vol] 85.1 fL Normal 80.0-100.0 [facility] Comment on above: Order Comment: Speci men Type: BLOOD SPECIMENOrdering Facility: [facility] Address: [address] [place] [address] Performed By: #### 5 8410-2 ####[facility]ATORYCLIA [id number] [address] Nucleated RBC (Bld) [#/Vol] 10*3/uL Normal <0.01 [facility] Comment on above: Order Comment: Speci men Type: BLOOD SPECIMENOrdering Facility: [facility] Address: [address] [place] [address] Performed By: #### 5 8410-2 ####[facility]ATORYCLIA [id number] [address] Platelet mean volume (Bld) [Entitic vol] 10.2 fL Normal 9.0-12.7 [facility] Comment on above: Order Comment: Speci men Type: BLOOD SPECIMENOrdering Facility: [facility] Address: [address] [place] [address] Performed By: #### 5 8410-2 ####[facility]ATORYCLIA [id number] [address] OF [facility] Platelets (Bld) [#/Vol] 150 10*3/uL Normal 150-400 [facility] Comment on above: Order Comment: Speci men Type: BLOOD SPECIMENOrdering Facility: [facility] Address: [address] [place] [address] Performed By: #### 5 8410-2 ####[facility]ATORYCLIA [id number] [place] [address] [place] RBC (Bld) [#/Vol] 2.48 10*6/uL Low 3.90-5.20 [facility] Comment on above: Order Comment: Speci men Type: BLOOD SPECIMENOrdering Facility: [facility] Address: [address] [place] [address] Performed By: #### 5 8410-2 ####[facility]ATORYCLIA [id number] [address] STATES OF [facility] WBC (Bld) [#/Vol] 14.81 10*3/uL High 3.70-11.00 [facility] Comment on above: Order Comment: Speci men Type: BLOOD SPECIMENOrdering Facility: [facility] Address: [address] [place] [address] Performed By: #### 5 8410-2 ####[facility]ATORYCLIA [id number] [address] [place] Haptoglob SerPl-mCncon 04-16 Haptoglobin [Mass/Vol] 128 mg/dL Normal 31-238 [facility] Comment on above: Order Comment: Speci men Type: BLOOD SPECIMENOrdering Facility: [facility] Address: [address] [place] [address] Performed By: #### 2 4321-2, 2777-1, 4542-7, 51119-6, 01966-0 ####[facility]ORYCLIA [id number] [address] [place] Hepatic function 2000 panelo n 04-16-2025 Albumin [Mass/Vol] 2.8 g/dL Low 3.9-4.9 [facility] Comment on above: Order Comment: Speci men Type: BLOOD SPECIMENOrdering Facility: [facility] Address: [address] [place] [address] Performed By: #### 2 4321-2, 2777-1, 4542-7, 64730-2, 21511-9 ####[facility]ATORYCLIA [id number] [place] [address] [place] ALP [Catalytic activity/Vol] 53 U/L Normal 34-123 [facility] Comment on above: Order Comment: Speci men Type: BLOOD SPECIMENOrdering Facility: [facility] Address: [address] [place] [address] Performed By: #### 2 4321-2, 2777-1, 4541-7, 35355-6, 16441-7 ####[facility]ATORYCLIA [id number] [place] [address] [place] ALT With P-5'-P [Catalytic activity/Vol] U/L Low 7-38 [facility] Comment on above: Order Comment: Speci men Type: BLOOD SPECIMENOrdering Facility: [facility] Address: [address] [place] [address] Performed By: #### 2 4321-2, 2777-1, 4541-7, , 16458-8 ####[facility]ATORYCLIA [id number] [place] [address] [place] AST With P-5'-P [Catalytic activity/Vol] 20 U/L Normal 13-35 [facility] Comment on above: Order Comment: Speci men Type: BLOOD SPECIMENOrdering Facility: [facility] Address: [address] [place] [address] Performed By: #### 2 4321-2, 2777-1, 4542-7, 08193-6, 34291-4 ####[facility]ATORYCLIA [id number] [place] [address] [place] [facility] Bilirubin [Mass/Vol] 0.5 mg/dL Normal 0.2-1.3 [facility] Comment on above: Order Comment: Speci men Type: BLOOD SPECIMENOrdering Facility: [facility] Address: [address] [place] [address] Performed By: #### 2 4321-2, 2777-1, 4542-7, 14900-1, 30891-7 ####[facility]ATORYCLIA [id number] [place] [id number] [place] Bilirubin.conjugated [Mass/Vol] 0.2 mg/dL Normal <0.3 [facility] Comment on above: Order Comment: Speci men Type: BLOOD SPECIMENOrdering Facility: [facility] Address: [address] [place] [address] Performed By: #### 2 4321-2, 2777-1, 4542-7, 72633-7, 00172-6 ####[facility]ATORYCLIA [id number] [place] [address] [place] Protein [Mass/Vol] 5.0 g/dL Low 6.3-8.0 [facility] Comment on above: Order Comment: Speci men Type: BLOOD SPECIMENOrdering Facility: [facility] Address: [address] [place] [address] Performed By: #### 2 4321-2, 2777-1, 4542-7, 07890-0, 21434-7 ####[facility]ORYCLIA [id number] [place] [id number] [place] Hgb Bld-mCncon 04-16-2025 Hemoglobin (Bld) [Mass/Vol] 9.0 g/dL Low 11.5-15.5 [facility] Comment on above: Order Comment: Speci men Type: BLOOD SPECIMENOrdering Facility: [facility] Address: [address] [place] [address] Performed By: #### 7 18-7 ####[facility]ATORYCLIA [id number] [place] [id number] [place] Hemoglobin (Bld) [Mass/Vol] 6.6 g/dL Low 11.5-15.5 [facility] Comment on above: Order Comment: Speci men Type: BLOOD SPECIMENOrdering Facility: [facility] Address: [address] [place] [address] Performed By: #### 7 18-7 ####[facility]ATORYCLIA [id number] [place] [address] [place] LDH SerPl-cCncon 04-16-2025 LDH [Catalytic activity/Vol] 256 U/L High 135-214 [facility] Comment on above: Order Comment: Speci men Type: BLOOD SPECIMENOrdering Facility: [facility] Address: [address] [place] [address] Performed By: #### 2 532-0 ####[facility]ATORYCLIA [id number] [place] [address] [place] Magnesium SerPl-mCncon 04-16 Magnesium [Mass/Vol] 2.1 mg/dL Normal 1.7-2.3 [facility] Comment on above: Order Comment: Speci men Type: BLOOD SPECIMENOrdering Facility: [facility] Address: [address] [place] [address] Performed By: #### 2 4321-2, 2777-1, 454-7, 52486-4, 89220-4 ####[facility]ATORYCLIA [id number] [place] [address] [place] Phosphate SerPl-mCncon 04-16 Phosphate [Mass/Vol] 3.5 mg/dL Normal 2.7-4.8 [facility] Comment on above: Order Comment: Speci men Type: BLOOD SPECIMENOrdering Facility: [facility] Address: [address] [place] [address] Performed By: #### 2 4321-2, 2777-1, 2-7, 10738-8, 94185-6 ####[facility]ATORYCLIA [id number] [place] [address] [place] THERAPY NTon 04-16-2025 THERAPY NT Normal [facility] TYPE + SCREENon 04-16-2025 ABO O Normal [facility] Comment on above: Order Comment: Speci men Type: BLOOD SPECIMENOrdering Facility: [facility] Address: [address] [place] [address] Performed By: #### T SCR ####[facility] BANKCLIA [id number] [address] Rh Nom (Bld) Positive Normal [facility] Comment on above: Order Comment: Speci men Type: BLOOD SPECIMENOrdering Facility: [facility] Address: [address] [place] [address] Performed By: #### T SCR ####[facility] BANKCLIA [id number] [address] TYPE AND SCREEN EXPIRATION 04/19/2025 23:59 Normal [facility] Comment on above: Order Comment: Speci men Type: BLOOD SPECIMENOrdering Facility: [facility] Address: [address] [place] [address] Performed By: #### T SCR ####[facility] BANKCLIA [id number] [address] [place] aPTT PPPon 04-16-2025 aPTT Coag (PPP) [Time] 24.8 s Normal 23.0-32.4 [facility] Comment on above: Order Comment: Speci men Type: BLOOD SPECIMENOrdering Facility: [facility] Address: [address] [place] [address] Performed By: #### 1 4979-9 ####[facility]ATORYCLIA [id number] [address] aPTT Coag (PPP) [Time] 66.6 s High 23.0-32.4 [facility] Comment on above: Order Comment: Speci men Type: BLOOD SPECIMENOrdering Facility: [facility] Address: [address] [place] [address] Performed By: #### 1 4979-9 ####[facility]ATORYCLIA [id number] [place] [address] [place] aPTT Coag (PPP) [Time] s High 23.0-32.4 [facility] Comment on above: Order Comment: Speci men Type: BLOOD SPECIMENOrdering Facility: [facility] Address: [address] [place] [address] Performed By: #### 1 4979-9 ####[facility]ORATORYCLIA [id number] [place] [address] [place] Basic metabolic 2000 panelon 04-15-2025 Anion gap [Moles/Vol] 9 mmol/L Normal 8-15 [facility] Comment on above: Order Comment: Speci men Type: BLOOD SPECIMENOrdering Facility: [facility] Address: [address] [place] [address] Performed By: #### 2 777-1, , 85060-3 ####[facility] LABORATORYCLIA [id number] [place] [address] [place] Calcium [Mass/Vol] 7.7 mg/dL Low 8.5-10.2 [facility] Comment on above: Order Comment: Speci men Type: BLOOD SPECIMENOrdering Facility: [facility] Address: [address] [place] [address] Performed By: #### 2 777-1, , ####[facility] LABORATORYCLIA [id number] [place] [address] [place] Chloride [Moles/Vol] 103 mmol/L Normal 98-107 [facility] Comment on above: Order Comment: Speci men Type: BLOOD SPECIMENOrdering Facility: [facility] Address: [address] [place] [address] Performed By: #### 2 777-1, , ####[facility]ATORYCLIA [id number] [place] [address] [place] CO2 [Moles/Vol] 22 mmol/L Normal 22-30 [facility] Comment on above: Order Comment: Speci men Type: BLOOD SPECIMENOrdering Facility: [facility] Address: [address] [place] [address] Performed By: #### 2 777-1, , ####[facility]PITALIA [id number] [place] [id number] [place] [facility] Creatinine [Mass/Vol] 0.86 mg/dL Normal 0.58-0.96 [facility] Comment on above: Order Comment: Speci men Type: BLOOD SPECIMENOrdering Facility: [facility] Address: [address] [place] [address] Performed By: #### 2 777-1, , ####[facility]ITALIA [id number] [address] [place] eGFRcr SerPlBld CKD-EPI 2020 71 mL/min/1.73m??? Normal >=60 [facility] Comment on above: Order Comment: Speci men Type: BLOOD SPECIMENOrdering Facility: [facility] Address: [address] [place] [address] Result Comment: Yessica mated Glomerular Filtration Rate [...] GFR. Performed By: #### 2 777-1, , ####[facility] LABORATORYIA [id number] [place] [id number] [place] Glucose [Mass/Vol] 158 mg/dL High 74-99 [facility] Comment on above: Order Comment: Speci men Type: BLOOD SPECIMENOrdering Facility: [facility] Address: [address] [place] [address] Result Comment: The [place] [employer] (ADA) provides guidance for cutoff [...] Standards of Medical Care in Diabetes 2016, [place] [employer]. Diabetes Care. 2016.39(Suppl 1). Performed By: #### 2 777-1, , ####[facility] LABORATORYCLIA [id number] [place] [address] [place] Potassium [Moles/Vol] 4.6 mmol/L Normal 3.7-5.1 [facility] Comment on above: Order Comment: Franco newton Type: BLOOD SPECIMENOrdering Facility: [facility] Address: [address] [place] [address] Performed By: #### 2 777-1, , ####[facility] LABORATORYCLIA [id number] [place] [address] [place] Sodium [Moles/Vol] 134 mmol/L Low 136-144 [facility] Comment on above: Order Comment: Franco new[place] Type: BLOOD SPECIMENOrdering Facility: [facility] Address: [address] [place] [address] Performed By: #### 2 777-1, , ####[facility] LABORATORYCLIA [id number] [place] [address] [place] Urea nitrogen [Mass/Vol] 31 mg/dL High 7-21 [facility] Comment on above: Order Comment: Franco newton Type: BLOOD SPECIMENOrdering Facility: [facility] Address: [address] [place] [address] Performed By: #### 2 777-1, , 93372-1 ####[facility] LABORATORYCLIA [id number] [place] [address] [place] CBC panel Auto (Bld)on 04-15 Erythrocyte distribution width (RBC) [Ratio] 14.6 % Normal 11.5-15.0 [facility] Comment on above: Order Comment: Speci men Type: BLOOD SPECIMENOrdering Facility: [facility] Address: [address] [place] [address] Performed By: #### 5 8410-2 ####[facility] LABORATORYCLIA [id number] [address] OF [facility] Hematocrit (Bld) [Volume fraction] 23.4 % Low 36.0-46.0 [facility] Comment on above: Order Comment: Speci men Type: BLOOD SPECIMENOrdering Facility: [facility] Address: [address] [place] [address] Performed By: #### 5 8410-2 ####[facility] LABORATORYCLIA [id number] [address] OF [facility] Hemoglobin (Bld) [Mass/Vol] 8.0 g/dL Low 11.5-15.5 [facility] Comment on above: Order Comment: Speci men Type: BLOOD SPECIMENOrdering Facility: [facility] Address: [address] [place] [address] Performed By: #### 5 8410-2 ####[facility] LABORATORYCLIA [id number] [address] [place] MCH (RBC) [Entitic mass] 29.2 pg Normal 26.0-34.0 [facility] Comment on above: Order Comment: Speci men Type: BLOOD SPECIMENOrdering Facility: [facility] Address: [address] [place] [address] Performed By: #### 5 8410-2 ####[facility] LABORATORYCLIA [id number] [address] [place] MCHC (RBC) [Mass/Vol] 34.2 g/dL Normal 30.5-36.0 [facility] Comment on above: Order Comment: Speci men Type: BLOOD SPECIMENOrdering Facility: [facility] Address: [address] [place] [address] Performed By: #### 5 8410-2 ####[facility] LABORATORYCLIA [id number] [address] MCV (RBC) [Entitic vol] 85.4 fL Normal 80.0-100.0 [facility] Comment on above: Order Comment: Speci men Type: BLOOD SPECIMENOrdering Facility: [facility] Address: [address] [place] [address] Performed By: #### 5 8410-2 ####[facility] LABORATORYCLIA [id number] [address] OF [facility] Nucleated RBC (Bld) [#/Vol] 10*3/uL Normal <0.01 [facility] Comment on above: Order Comment: Speci men Type: BLOOD SPECIMENOrdering Facility: [facility] Address: [address] [place] [address] Performed By: #### 5 8410-2 ####[facility] LABORATORYCLIA [id number] [address] Platelet mean volume (Bld) [Entitic vol] 10.0 fL Normal 9.0-12.7 [facility] Comment on above: Order Comment: Speci men Type: BLOOD SPECIMENOrdering Facility: [facility] Address: [address] [place] [address] Performed By: #### 5 8410-2 ####[facility]ORATORYCLIA [id number] [address] Platelets (Bld) [#/Vol] 160 10*3/uL Normal 150-400 [facility] Comment on above: Order Comment: Speci men Type: BLOOD SPECIMENOrdering Facility: [facility] Address: [address] [place] [address] Performed By: #### 5 8410-2 ####[facility]ATORYCLIA [id number] [address] [place] RBC (Bld) [#/Vol] 2.74 10*6/uL Low 3.90-5.20 [facility] Comment on above: Order Comment: Speci men Type: BLOOD SPECIMENOrdering Facility: [facility] Address: [address] [place] [address] Performed By: #### 5 8410-2 ####[facility]ATORYCLIA [id number] [address] [place] WBC (Bld) [#/Vol] 15.46 10*3/uL High 3.70-11.00 [facility] Comment on above: Order Comment: Speci men Type: BLOOD SPECIMENOrdering Facility: [facility] Address: [address] [place] [address] Performed By: #### 5 8410-2 ####[facility]ATORYCLIA [id number] [address] [place] Hgb Bld-ncon 04-15-2025 Hemoglobin (Bld) [Mass/Vol] 7.6 g/dL Low 11.5-15.5 [facility] [facility] Comment on above: Order Comment: Speci men Type: BLOOD SPECIMENOrdering Facility: [facility] Address: [address] [place] [address] Performed By: #### 7 18-7 ####[facility]ATORYCLIA [id number] [address] [place] Hemoglobin (Bld) [Mass/Vol] 8.3 g/dL Low 11.5-15.5 [facility] Comment on above: Order Comment: Speci men Type: BLOOD SPECIMENOrdering Facility: [facility] Address: [address] [place] [address] Performed By: #### 7 18-7 ####[facility]ATORYCLIA [id number] [place] [address] [place] Magnesium SerPl-ncon 04-15 Magnesium [Mass/Vol] 2.0 mg/dL Normal 1.7-2.3 [facility] Comment on above: Order Comment: Speci men Type: BLOOD SPECIMENOrdering Facility: [facility] Address: [address] [place] [address] Performed By: #### 2 777-1, 05421-3, 10983-1 ####[facility]ATORYCLIA [id number] [place] [id number] [place] NUTRITIONon 04-15-2025 NUTRITION Normal [facility] PT panel Coag (PPP)on 2024 INR Coag (PPP) [Relative time] 1.0 {INR} Normal 0.9-1.3 [facility] Comment on above: Order Comment: Speci men Type: BLOOD SPECIMENOrdering Facility: [facility] Address: [address] [place] [address] Result Comment: Tequila min K Antagonist (VKA) Therapeutic Range: INR 2 to 3 (Target INR of 2.5)Note: For patients treated with VKA drugs, such as warfarin, the [place] [employer] 2012 Guideline recommends [...] al. Chest 2012, 141:7S-47SNishimura RA, et al. [facility] 2017, 70: 252-289 Performed By: #### 1 4979-9, 61910-0 ####[facility]ATORYCLIA [id number] [place] [address] [place] PT Coag (PPP) [Time] 10.6 s Normal 9.7-13.0 [facility] Comment on above: Order Comment: Speci men Type: BLOOD SPECIMENOrdering Facility: [facility] Address: [address] [id number] Performed By: #### 1 4979-9, 94589-7 ####[facility]ATORYCLIA [id number] [address] [place] Phosphate SerPl-mCncon 04-15 Phosphate [Mass/Vol] 4.2 mg/dL Normal 2.7-4.8 [facility] Comment on above: Order Comment: Speci men Type: BLOOD SPECIMENOrdering Facility: [facility] Address: [address] [place] [address] Performed By: #### 2 777-1, 15664-4, 94524-9 ####[facility]ATORYCLIA [id number] [address] [place] THERAPY NTon 04-15-2025 THERAPY NT Normal [facility] aPTT PPPon 04-15-2025 aPTT Coag (PPP) [Time] 27.8 s Normal 23.0-32.4 [facility] Comment on above: Order Comment: Speci men Type: BLOOD SPECIMENOrdering Facility: [facility] Address: [address] [place], [place] [address] Performed By: #### 1 4979-9 ####[facility]ATORYCLIA [id number] [address] aPTT Coag (PPP) [Time] 23.4 s Normal 23.0-32.4 [facility] Comment on above: Order Comment: Speci men Type: BLOOD SPECIMENOrdering Facility: [facility] Address: [address] [place] [address] Performed By: #### 1 4979-9, 84621-0 ####[facility]ATORYCLIA [id number] [place] [address] [place] ALLIED HEALTHon 04-14-2025 ALLIED HEALTH Normal [facility] Basic metabolic 2000 panelon 04-14-2025 Anion gap [Moles/Vol] 10 mmol/L Normal 8-15 [facility] Comment on above: Order Comment: Speci men Type: BLOOD SPECIMENOrdering Facility: [facility] Address: [address] [place] [address] Performed By: #### 2 777-1, 37595-7 ####[facility]ATORYCLIA [id number] [place] [address] [place] Calcium [Mass/Vol] 8.4 mg/dL Low 8.5-10.2 [facility] Comment on above: Order Comment: Speci men Type: BLOOD SPECIMENOrdering Facility: [facility] Address: [address] [place] [address] Performed By: #### 2 777-1, 45666-8 ####[facility]ATORYCLIA [id number] [place] [address] [place] Chloride [Moles/Vol] 101 mmol/L Normal 98-107 [facility] Comment on above: Order Comment: Speci men Type: BLOOD SPECIMENOrdering Facility: [facility] Address: [address] [place] [address] Performed By: #### 2 777-1, 40067-4 ####[facility]ATORYCLIA [id number] [address] [place] CO2 [Moles/Vol] 21 mmol/L Low 22-30 [facility] Comment on above: Order Comment: Speci men Type: BLOOD SPECIMENOrdering Facility: [facility] Address: [address] [place] [address] Performed By: #### 2 777-1, 30736-3 ####[facility]ATORYCLIA [id number] [place] [address] [place] Creatinine [Mass/Vol] 0.56 mg/dL Low 0.58-0.96 [facility] Comment on above: Order Comment: Speci men Type: BLOOD SPECIMENOrdering Facility: [facility] Address: [address] [place] [address] Performed By: #### 2 777-1, 74429-8 ####[facility]ATORYCLIA [id number] [address] [place] eGFRcr SerPlBld CKD-EPI 2021 96 mL/min/1.73m??? Normal >=60 [facility] Comment on above: Order Comment: Speci men Type: BLOOD SPECIMENOrdering Facility: [facility] Address: [address] [place] [address] Result Comment: Yessica mated Glomerular Filtration Rate [...] actual GFR. Performed By: #### 2 777-1, 22408-0 ####[facility] [id number] [place] [address] [place] Glucose [Mass/Vol] 216 mg/dL High 74-99 [facility] Comment on above: Order Comment: Franco newton Type: BLOOD SPECIMENOrdering Facility: [facility] Address: [address] [place] [address] Result Comment: The [place] [employer] (ADA) provides guidance for cutoff [...] Standards of Medical Care in Diabetes 2016, [place] [employer]. Diabetes Care. 2016.39(Suppl 1). Performed By: #### 2 777-1, 48921-8 ####[facility]ATORYCLIA [id number] [place] [address] [place] Potassium [Moles/Vol] 4.9 mmol/L Normal 3.7-5.1 [facility] Comment on above: Order Comment: Franco newton Type: BLOOD SPECIMENOrdering Facility: [facility] Address: [address] [place] [address] Performed By: #### 2 777-1, 64366-5 ####[facility]ATORYCLIA [id number] [address] [place] Sodium [Moles/Vol] 132 mmol/L Low 136-144 [facility] Comment on above: Order Comment: Speci men Type: BLOOD SPECIMENOrdering Facility: [facility] Address: [address] [place] [address] Performed By: #### 2 777-1, 31311-9 ####[facility]ATORYCLIA [id number] [address] [place] Urea nitrogen [Mass/Vol] 21 mg/dL Normal 7-21 [facility] Comment on above: Order Comment: Speci men Type: BLOOD SPECIMENOrdering Facility: [facility] Address: [address] [place] [address] Performed By: #### 2 777-1, 89276-8 ####[facility]ORYCLIA [id number] [address] STATES OF [facility] CBC panel Auto (Bld)on 04-14 Erythrocyte distribution width (RBC) [Ratio] 14.0 % Normal 11.5-15.0 [facility] Comment on above: Order Comment: Speci men Type: BLOOD SPECIMENOrdering Facility: [facility] Address: [address] [place] [address] Performed By: #### 5 8410-2 ####[facility]ATORYCLIA [id number] [address] [place] Hematocrit (Bld) [Volume fraction] 33.2 % Low 36.0-46.0 [facility] Comment on above: Order Comment: Speci men Type: BLOOD SPECIMENOrdering Facility: [facility] Address: [address] [place] [address] Performed By: #### 5 8410-2 ####[facility]ATORYCLIA [id number] [address] [place] Hemoglobin (Bld) [Mass/Vol] 11.2 g/dL Low 11.5-15.5 [facility] Comment on above: Order Comment: Speci men Type: BLOOD SPECIMENOrdering Facility: [facility] Address: [address] [place] [address] Performed By: #### 5 8410-2 ####[facility]ATORYCLIA [id number] [address] MCH (RBC) [Entitic mass] 28.8 pg Normal 26.0-34.0 [facility] Comment on above: Order Comment: Speci men Type: BLOOD SPECIMENOrdering Facility: [facility] Address: [address] [place] [address] Performed By: #### 5 8410-2 ####[facility]ATORYCLIA [id number] [address] MCHC (RBC) [Mass/Vol] 33.7 g/dL Normal 30.5-36.0 [facility] Comment on above: Order Comment: Speci men Type: BLOOD SPECIMENOrdering Facility: [facility] Address: [address] [place] [address] Performed By: #### 5 8410-2 ####[facility]ORYCLIA [id number] [address] MCV (RBC) [Entitic vol] 85.3 fL Normal 80.0-100.0 [facility] Comment on above: Order Comment: Speci men Type: BLOOD SPECIMENOrdering Facility: [facility] Address: [address] [place] [address] Performed By: #### 5 8410-2 ####[facility]ATORYCLIA [id number] [address] Nucleated RBC (Bld) [#/Vol] 10*3/uL Normal <0.01 [facility] Comment on above: Order Comment: Speci men Type: BLOOD SPECIMENOrdering Facility: [facility] Address: [address] [place] [address] Performed By: #### 5 8410-2 ####[facility]ATORYCLIA [id number] [address] Platelet mean volume (Bld) [Entitic vol] 10.6 fL Normal 9.0-12.7 [facility] Comment on above: Order Comment: Speci men Type: BLOOD SPECIMENOrdering Facility: [facility] Address: [address] [place] [address] Performed By: #### 5 8410-2 ####[facility]ATORYCLIA [id number] [place] [address] [place] Platelets (Bld) [#/Vol] 219 10*3/uL Normal 150-400 [facility] Comment on above: Order Comment: Speci men Type: BLOOD SPECIMENOrdering Facility: [facility] Address: [address] [place] [address] Performed By: #### 5 8410-2 ####[facility]ORYCLIA [id number] [place] [address] [place] RBC (Bld) [#/Vol] 3.89 10*6/uL Low 3.90-5.20 [facility] Comment on above: Order Comment: Speci men Type: BLOOD SPECIMENOrdering Facility: [facility] Address: [address] [place] [address] Performed By: #### 5 8410-2 ####[facility]ATORYCLIA [id number] [place] [address] [place] WBC (Bld) [#/Vol] 20.58 10*3/uL High 3.70-11.00 [facility] Comment on above: Order Comment: Speci men Type: BLOOD SPECIMENOrdering Facility: [facility] Address: [address] [place] [address] Performed By: #### 5 8410-2 ####[facility]ATORYCLIA [id number] [address] OF [facility] CONSULT PROGon 04-14-2025 CONSULT PROG Normal [facility] CT ABD/PEL W IVCONon 025 CT ABD/PEL W IVCON Invalid Interpretation Code [facility] CT COMPLETE LEG W IVCON LTon 04-14-2025 CT COMPLETE LEG W IVCON LT Normal [facility] Gas and Carbon monoxide pane l (BldV)on 04-14-2025 BASE DEFICIT, VENOUS -3 mmol/L Low -2-0 [facility] Comment on above: Order Comment: Speci men Type: VENOUS BLOOD SPECIMENOrdering Facility: [facility] Address: [address] [place] [address] Performed By: #### 2 4344-4 ####[facility]ORYCLIA [id number] [address] [place] Body temperature 97.34 [degF] Normal [facility] Comment on above: Order Comment: Speci men Type: VENOUS BLOOD SPECIMENOrdering Facility: [facility] Address: [address] [place] [address] Performed By: #### 2 4344-4 ####[facility]ATORYCLIA [id number] [address] [place] Calcium.ionized (BldV) [Mass/Vol] 1.17 mmol/L Normal 1.08-1.30 [facility] Comment on above: Order Comment: Speci men Type: VENOUS BLOOD SPECIMENOrdering Facility: [facility] Address: [address] [place] [address] Performed By: #### 2 4344-4 ####[facility]ORYCLIA [id number] [address] [place] Calcium.ionized adjusted to pH 7.4 (BldA) [Moles/Vol] 1.11 mmol/L Normal 1.08-1.30 [facility] Comment on above: Order Comment: Speci men Type: VENOUS BLOOD SPECIMENOrdering Facility: [facility] Address: [address] [place] [address] Performed By: #### 2 4344-4 ####[facility]ATORYCLIA [id number] [address] [place] Carboxyhemoglobin (BldV) [Mass fraction] 2.4 % High 0.0-2.0 [facility] Comment on above: Order Comment: Speci men Type: VENOUS BLOOD SPECIMENOrdering Facility: [facility] Address: [address] [place] [address] Result Comment: Carb oxyhemoglobin Reference Range for Smokers: 2.0-8.0% Performed By: #### 2 4344-4 ####[facility]ORYCLIA [id number] [address] [place] Chloride [Moles/Vol] 100 mmol/L Normal 97-105 [facility] Comment on above: Order Comment: Speci men Type: VENOUS BLOOD SPECIMENOrdering Facility: [facility] Address: [address] [place] [address] Performed By: #### 2 4344-4 ####[facility]ORYCLIA [id number] [address] [place] CO2 (BldV) [Partial pressure] 47 mm[Hg] Normal 42-55 [facility] Comment on above: Order Comment: Speci men Type: VENOUS BLOOD SPECIMENOrdering Facility: [facility] Address: [address] [place] [address] Performed By: #### 2 4344-4 ####[facility]ATORYCLIA [id number] [address] CO2 adjusted to patient's actual temperature (BldV) [Partial pressure] 46 mmHg Normal 42-55 [facility] Comment on above: Order Comment: Speci men Type: VENOUS BLOOD SPECIMENOrdering Facility: [facility] Address: [address] [place] [address] Performed By: #### 2 4344-4 ####[facility]ATORYCLIA [id number] [place] [address] [place] Glucose [Mass/Vol] 282 mg/dL High 60-105 [facility] Comment on above: Order Comment: Speci men Type: VENOUS BLOOD SPECIMENOrdering Facility: [facility] Address: [address] [place] [address] Performed By: #### 2 4344-4 ####[facility]ATORYCLIA [id number] [place] [address] [place] HCO3 (Bld) [Moles/Vol] 23 mmol/L Low 24-28 [facility] Comment on above: Order Comment: Speci men Type: VENOUS BLOOD SPECIMENOrdering Facility: [facility] Address: [address] [place] [address] Performed By: #### 2 4344-4 ####[facility]ORYCLIA [id number] [address] [place] Hematocrit (Bld) [Volume fraction] 26.3 % Low 36.0-46.0 [facility] Comment on above: Order Comment: Speci men Type: VENOUS BLOOD SPECIMENOrdering Facility: [facility] Address: [address] [place] [address] Performed By: #### 2 4344-4 ####[facility]ORYCLIA [id number] [address] [place] Hemoglobin (Bld) [Mass/Vol] 8.5 g/dL Low 11.5-15.5 [facility] Comment on above: Order Comment: Speci men Type: VENOUS BLOOD SPECIMENOrdering Facility: [facility] Address: [address] [place] [address] Performed By: #### 2 4344-4 ####[facility]ORYCLIA [id number] [address] [place] Lactate [Moles/Vol] 3.5 mmol/L High 0.5-2.2 [facility] Comment on above: Order Comment: Speci men Type: VENOUS BLOOD SPECIMENOrdering Facility: [facility] Address: [address] [place] [address] Performed By: #### 2 4344-4 ####[facility]ORYCLIA [id number] [address] [place] Methemoglobin (Bld) [Mass fraction] 0.9 % Normal 0.0-1.5 [facility] Comment on above: Order Comment: Speci men Type: VENOUS BLOOD SPECIMENOrdering Facility: [facility] Address: [address] [place] [address] Performed By: #### 2 4344-4 ####[facility]ORYCLIA [id number] [address] O2 THERAPY NC = Nasal Cannula Normal [facility] Comment on above: Order Comment: Speci men Type: VENOUS BLOOD SPECIMENOrdering Facility: [facility] Address: [address] [place] [address] Performed By: #### 2 4344-4 ####[facility]ORYCLIA [id number] [address] [place] Oxygen (BldV) [Partial pressure] mm[Hg] Normal 35-45 [facility] Comment on above: Order Comment: Speci men Type: VENOUS BLOOD SPECIMENOrdering Facility: [facility] Address: [address] [place] [address] Performed By: #### 2 4344-4 ####[facility]ORYCLIA [id number] [address] Oxygen adjusted to patient's actual temperature (BldV) [Partial pressure] <40 Normal 35-45 [facility] Comment on above: Order Comment: Speci men Type: VENOUS BLOOD SPECIMENOrdering Facility: [facility] Address: [address] [place] [address] Performed By: #### 2 4344-4 ####[facility]ORYCLIA [id number] [address] [place] Oxygen saturation in Venous blood 55 % Low 60-85 [facility] Comment on above: Order Comment: Speci men Type: VENOUS BLOOD SPECIMENOrdering Facility: [facility] Address: [address] [place] [address] Performed By: #### 2 4344-4 ####[facility]ORYCLIA [id number] [address] [place] Oxyhemoglobin (BldV) [Mass fraction] 53 % Low 60-85 [facility] Comment on above: Order Comment: Speci men Type: VENOUS BLOOD SPECIMENOrdering Facility: [facility] Address: [address] [place] [address] Performed By: #### 2 4344-4 ####[facility]ORYCLIA [id number] [address] [place] pH (BldV) 7.30 [pH] Low 7.32-7.42 [facility] Comment on above: Order Comment: Speci men Type: VENOUS BLOOD SPECIMENOrdering Facility: [facility] Address: [address] [place] [address] Performed By: #### 2 4344-4 ####[facility]ORYCLIA [id number] [address] pH adjusted to patient's actual temperature (BldV) 7.31 Low 7.32-7.42 [facility] Comment on above: Order Comment: Speci men Type: VENOUS BLOOD SPECIMENOrdering Facility: [facility] Address: [address] [place] [address] Performed By: #### 2 4344-4 ####[facility]ORYCLIA [id number] [address] [place] Potassium [Moles/Vol] 4.6 mmol/L Normal 3.5-5.0 [facility] Comment on above: Order Comment: Speci men Type: VENOUS BLOOD SPECIMENOrdering Facility: [facility] Address: [address] [place] [address] Performed By: #### 2 4344-4 ####[facility]ORYCLIA [id number] [address] [place] Sodium [Moles/Vol] 132 mmol/L Low 136-144 [facility] Comment on above: Order Comment: Speci men Type: VENOUS BLOOD SPECIMENOrdering Facility: [facility] Address: [address] [place] [address] Performed By: #### 2 4344-4 ####[facility]ORYCLIA [id number] [address] [place] Hematocrit Auto (Bld) [Volum e fraction]on 04-14-2025 Hematocrit (Bld) [Volume fraction] 21.7 % Low 36.0-46.0 [facility] Comment on above: Order Comment: Speci men Type: BLOOD SPECIMENOrdering Facility: [facility] Address: [address] [place] [address] Performed By: #### 4 544-3, 718-7 ####[facility]ORYCLIA [id number] [place] [address] [place] Hematocrit (Bld) [Volume fraction] 28.4 % Low 36.0-46.0 [facility] Comment on above: Order Comment: Speci men Type: BLOOD SPECIMENOrdering Facility: [facility] Address: [address] [place] [address] Performed By: #### 7 18-7, 4544-3 ####[facility]ORYCLIA [id number] [place] [address] [place] [facility] Hemoglobin (Bld) [Mass/Vol] 9.2 g/dL Low 11.5-15.5 [facility] Comment on above: Order Comment: Speci men Type: BLOOD SPECIMENOrdering Facility: [facility] Address: [address] [place] [address] Performed By: #### 7 18-7 ####[facility]ORYCLIA [id number] [place] [address] [place] Hemoglobin (Bld) [Mass/Vol] 10.2 g/dL Low 11.5-15.5 [facility] Comment on above: Order Comment: Speci men Type: BLOOD SPECIMENOrdering Facility: [facility] Address: [address] [place] [address] Performed By: #### 7 18-7 ####[facility]ORYCLIA [id number] [place] [address] [place] Hemoglobin (Bld) [Mass/Vol] 7.2 g/dL Low 11.5-15.5 [facility] Comment on above: Order Comment: Speci men Type: BLOOD SPECIMENOrdering Facility: [facility] Address: [address] [place] [address] Performed By: #### 4 544-3, 718-7 ####[facility]ORYCLIA [id number] [place] [address] [place] Hemoglobin (Bld) [Mass/Vol] 9.4 g/dL Low 11.5-15.5 [facility] Comment on above: Order Comment: Speci men Type: BLOOD SPECIMENOrdering Facility: [facility] Address: [address] [place] [address] Performed By: #### 7 18-7, 4544-3 ####[facility]ORYCLIA [id number] [place] [address] [place] Lactate (Bld) [Moles/Vol]on 04-14-2025 Lactate [Moles/Vol] 1.2 mmol/L Normal 0.5-2.2 [facility] Comment on above: Order Comment: Speci men Type: BLOOD SPECIMENOrdering Facility: [facility] Address: [address] [place] [address] Performed By: #### 3 2693-4 ####[facility]ORATORYCLIA [id number] [place] [address] [place] Phosphate SerPl-mCncon 04-14 Phosphate [Mass/Vol] 3.2 mg/dL Normal 2.7-4.8 [facility] Comment on above: Order Comment: Speci men Type: BLOOD SPECIMENOrdering Facility: [facility] Address: [address] [place] [address] Performed By: #### 2 777-1, 07351-6 ####[facility]ORYCLIA [id number] [place] [id number] [place] THERAPY NTon 04-14-2025 THERAPY NT Normal [facility] THERAPY NT Normal [facility] aPTT PPPon 04-14-2025 aPTT Coag (PPP) [Time] 76.4 s High 23.0-32.4 [facility] Comment on above: Order Comment: Speci men Type: BLOOD SPECIMENOrdering Facility: [facility] Address: [address] [place], [place] [address] Performed By: #### 1 4979-9 ####[facility] LABORATORYCLIA [id number] [place] [address] [place] ANES POSTPROC EVALon 04-13- 025 ANES POSTPROC EVAL Normal [facility] ANES PRE-OPon 04-13-2025 ANES PRE-OP Normal [facility] BRIEF OP NOTon 04-13-2025 BRIEF OP NOT Normal [facility] Basic metabolic 2000 panelon 04-13-2025 Anion gap [Moles/Vol] 6 mmol/L Low 8-15 [facility] Comment on above: Order Comment: Speci men Type: BLOOD SPECIMENOrdering Facility: [facility] Address: [address] [place] [address] Performed By: #### 2 777-1, 78313-4 ####[facility] LABORATORYCLIA [id number] [place] [address] [place] Calcium [Mass/Vol] 8.7 mg/dL Normal 8.5-10.2 [facility] Comment on above: Order Comment: Speci men Type: BLOOD SPECIMENOrdering Facility: [facility] Address: [address] [place] [address] Performed By: #### 2 777-1, 05533-7 ####[facility] LABORATORYCLIA [id number] [place] [address] [place] Chloride [Moles/Vol] 103 mmol/L Normal 98-107 [facility] Comment on above: Order Comment: Speci men Type: BLOOD SPECIMENOrdering Facility: [facility] Address: [address] [place] [address] Performed By: #### 2 777-1, 48840-8 ####[facility]ORYCLIA [id number] [place] [address] [place] CO2 [Moles/Vol] 25 mmol/L Normal 22-30 [facility] Comment on above: Order Comment: Speci men Type: BLOOD SPECIMENOrdering Facility: [facility] Address: [address] [place] [address] Performed By: #### 2 777-1, 61229-9 ####[facility] LABORATORYCLIA [id number] [place] [id number] [facility] Creatinine [Mass/Vol] 0.64 mg/dL Normal 0.58-0.96 [facility] Comment on above: Order Comment: Speci men Type: BLOOD SPECIMENOrdering Facility: [facility] Address: [address] [place] [address] Performed By: #### 2 777-1, 31230-6 ####[facility] LABORATORYCLIA [id number] [place] [id number] [facility] eGFRcr SerPlBld CKD-EPI 2020 93 mL/min/1.73m??? Normal >=60 [facility] Comment on above: Order Comment: Speci men Type: BLOOD SPECIMENOrdering Facility: [facility] Address: [address] [place] [address] Result Comment: Yessica mated Glomerular Filtration Rate [...] actual GFR. Performed By: #### 2 777-1, 90909-6 ####[facility]ORATORYCLIA [id number] [place] [id number] [place] Glucose [Mass/Vol] 90 mg/dL Normal 74-99 [facility] Comment on above: Order Comment: Speci men Type: BLOOD SPECIMENOrdering Facility: [facility] Address: [address] [place] [address] Result Comment: The [place] [employer] (ADA) provides guidance for cutoff [...] Standards of Medical Care in Diabetes 2016, [place] [employer]. Diabetes Care. 2016.39(Suppl 1). Performed By: #### 2 777-1, 37370-5 ####[facility] LABORATORYCLIA [id number] [place] [address] [place] Potassium [Moles/Vol] 4.6 mmol/L Normal 3.7-5.1 [facility] Comment on above: Order Comment: Franco newton Type: BLOOD SPECIMENOrdering Facility: [facility] Address: [address] [place] [address] Performed By: #### 2 777-1, 99645-7 ####[facility] [id number] [address] STATES OF [facility] Sodium [Moles/Vol] 134 mmol/L Low 136-144 [facility] Comment on above: Order Comment: Franco nweton Type: BLOOD SPECIMENOrdering Facility: [facility] Address: [address] [place] [address] Performed By: #### 2 777-1, 06332-4 ####[facility] LABORATORYCLIA [id number] [address] [place] Urea nitrogen [Mass/Vol] 22 mg/dL High 7-21 [facility] Comment on above: Order Comment: Víctori aman Type: BLOOD SPECIMENOrdering Facility: [facility] Address: [address] [place] [address] Performed By: #### 2 777-1, 62952-7 ####[facility] LABORATORYCLIA [id number] [address] [place] CASE MANAGEMon 04-13-2025 CASE MANAGEM Normal [facility] CASE MANAGEM Normal [facility] CBC panel Auto (Bld)on 04-13 Erythrocyte distribution width (RBC) [Ratio] 14.0 % Normal 11.5-15.0 [facility] Comment on above: Order Comment: Speci men Type: BLOOD SPECIMENOrdering Facility: [facility] Address: [address] [place] [address] Performed By: #### 5 8410-2 ####[facility]ORATORYCLIA [id number] [address] Hematocrit (Bld) [Volume fraction] 41.9 % Normal 36.0-46.0 [facility] Comment on above: Order Comment: Speci men Type: BLOOD SPECIMENOrdering Facility: [facility] Address: [address] [place] [address] Performed By: #### 5 8410-2 ####[facility]ATORYCLIA [id number] [address] [place] Hemoglobin (Bld) [Mass/Vol] 13.9 g/dL Normal 11.5-15.5 [facility] Comment on above: Order Comment: Speci men Type: BLOOD SPECIMENOrdering Facility: [facility] Address: [address] [place] [address] Performed By: #### 5 8410-2 ####[facility]ATORYCLIA [id number] [address] [place] MCH (RBC) [Entitic mass] 28.3 pg Normal 26.0-34.0 [facility] Comment on above: Order Comment: Speci men Type: BLOOD SPECIMENOrdering Facility: [facility] Address: [address] [place] [address] Performed By: #### 5 8410-2 ####[facility]ORATORYCLIA [id number] [address] [place] MCHC (RBC) [Mass/Vol] 33.2 g/dL Normal 30.5-36.0 [facility] Comment on above: Order Comment: Speci men Type: BLOOD SPECIMENOrdering Facility: [facility] Address: [address] [place] [address] Performed By: #### 5 8410-2 ####[facility]ORATORYCLIA [id number] [address] STATES OF [facility] MCV (RBC) [Entitic vol] 85.2 fL Normal 80.0-100.0 [facility] Comment on above: Order Comment: Speci men Type: BLOOD SPECIMENOrdering Facility: [facility] Address: [address] [place] [address] Performed By: #### 5 8410-2 ####[facility]ORATORYCLIA [id number] [address] [place] Nucleated RBC (Bld) [#/Vol] 10*3/uL Normal <0.01 [facility] Comment on above: Order Comment: Speci men Type: BLOOD SPECIMENOrdering Facility: [facility] Address: [address] [place] [address] Performed By: #### 5 8410-2 ####[facility] LABORATORYCLIA [id number] [address] Platelet mean volume (Bld) [Entitic vol] 9.6 fL Normal 9.0-12.7 [facility] Comment on above: Order Comment: Speci men Type: BLOOD SPECIMENOrdering Facility: [facility] Address: [address] [place] [address] Performed By: #### 5 8410-2 ####[facility] LABORATORYCLIA [id number] [address] Platelets (Bld) [#/Vol] 205 10*3/uL Normal 150-400 [facility] Comment on above: Order Comment: Speci men Type: BLOOD SPECIMENOrdering Facility: [facility] Address: [address] [place] [address] Performed By: #### 5 8410-2 ####[facility]ATORYCLIA [id number] [address] [place] RBC (Bld) [#/Vol] 4.92 10*6/uL Normal 3.90-5.20 [facility] Comment on above: Order Comment: Speci men Type: BLOOD SPECIMENOrdering Facility: [facility] Address: [address] [place] [address] Performed By: #### 5 8410-2 ####[facility] LABORATORYCLIA [id number] [address] [place] WBC (Bld) [#/Vol] 20.10 10*3/uL High 3.70-11.00 [facility] Comment on above: Order Comment: Speci men Type: BLOOD SPECIMENOrdering Facility: [facility] Address: [address] [place] [address] Performed By: #### 5 8410-2 ####[facility]ORATORYCLIA [id number] [address] [place] BLOOD TYPEon 025 ABO O Normal [facility] Comment on above: Order Comment: Speci men Type: BLOOD SPECIMENOrdering Facility: [facility] Address: [address] [place] [address] Performed By: #### C ONABO ####[facility] BLOOD BANKCLIA [id number] [address] Rh Nom (Bld) Positive Normal [facility] Comment on above: Order Comment: Speci men Type: BLOOD SPECIMENOrdering Facility: [facility] Address: [address] [place] [address] Performed By: #### C ONABO ####[facility] BLOOD BANKCLIA [id number] [address] OPERATIVE NOon 04-13-2025 OPERATIVE NO Normal [facility] PT panel Coag (PPP)on 2024 INR Coag (PPP) [Relative time] 1.1 {INR} Normal 0.9-1.3 [facility] Comment on above: Order Comment: Speci men Type: BLOOD SPECIMENOrdering Facility: [facility] Address: [address] [place] [address] Result Comment: Tequila min K Antagonist (VKA) Therapeutic Range: INR 2 to 3 (Target INR of 2.5)Note: For patients treated with VKA drugs, such as warfarin, the [place] [employer] 2012 Guideline recommends [...] al. Chest 2012, 141:7S-47SNishimura RA, et al. [facility] 2017, 70: 252-289 Performed By: #### 3 4528-0, 81444-5 ####[facility] LABORATORYCLIA [id number] [place] [address] [place] PT Coag (PPP) [Time] 10.9 s Normal 9.7-13.0 [facility] Comment on above: Order Comment: Speci men Type: BLOOD SPECIMENOrdering Facility: [facility] Address: [address] [place] [address] Performed By: #### 3 4528-0, 04426-7 ####[facility] LABORATORYCLIA [id number] [place] [address] [place] Phosphate SerPl-mCncon 04-13 Phosphate [Mass/Vol] 3.0 mg/dL Normal 2.7-4.8 [facility] Comment on above: Order Comment: Speci men Type: BLOOD SPECIMENOrdering Facility: [facility] Address: [address] [place] [address] Performed By: #### 2 777-1, 19287-0 ####[facility]ORATORYCLIA [id number] [place] [address] [place] XR HIP 2V AP/ LAT LTon 04-13 XR HIP 2V AP/ LAT LT Normal [facility] aPTT PPPon 10-30-2025 aPTT Coag (PPP) [Time] s High 23.0-32.4 [facility] Comment on above: Order Comment: Speci men Type: BLOOD SPECIMENOrdering Facility: [facility] Address: [address] [place] [address] Performed By: #### 1 4979-9 ####[facility]ATORYCLIA [id number] [address] aPTT Coag (PPP) [Time] 26.4 s Normal 23.0-32.4 [facility] Comment on above: Order Comment: Speci men Type: BLOOD SPECIMENOrdering Facility: [facility] Address: [address] [place] [address] Performed By: #### 3 4528-0, 71289-4 ####[facility]ATORYCLIA [id number] [address] aPTT Coag (PPP) [Time] 55.6 s High 23.0-32.4 [facility] Comment on above: Order Comment: Speci men Type: BLOOD SPECIMENOrdering Facility: [facility] Address: [address] [place] [address] Performed By: #### 1 4979-9 ####[facility]ATORYCLIA [id number] [address] aPTT Coag (PPP) [Time] 48.0 s High 23.0-32.4 [facility] Comment on above: Order Comment: Speci men Type: BLOOD SPECIMENOrdering Facility: [facility] Address: [address] [place] [address] Performed By: #### 1 4979-9 ####[facility]ORATORYCLIA [id number] [address] ALLIED HEALTHon 04-12-2025 ALLIED HEALTH Normal [facility] ALLIED HEALTH Normal [facility] Basic metabolic 2000 panelon 04-12-2025 Anion gap [Moles/Vol] 7 mmol/L Low 8-15 [facility] Comment on above: Order Comment: Speci men Type: BLOOD SPECIMENOrdering Facility: [facility] Address: [address] [place] [address] Performed By: #### 2 777-1, 36504-1 ####[facility]ATORYCLIA [id number] [place] [address] [place] Calcium [Mass/Vol] 8.7 mg/dL Normal 8.5-10.2 [facility] Comment on above: Order Comment: Speci men Type: BLOOD SPECIMENOrdering Facility: [facility] Address: [address] [place] [address] Performed By: #### 2 777-1, 27134-6 ####[facility]ORATORYCLIA [id number] [place] [address] [place] Chloride [Moles/Vol] 106 mmol/L Normal 98-107 [facility] Comment on above: Order Comment: Speci men Type: BLOOD SPECIMENOrdering Facility: [facility] Address: [address] [place] [address] Performed By: #### 2 777-1, 85198-3 ####[facility]ORATORYCLIA [id number] [place] [address] [place] CO2 [Moles/Vol] 25 mmol/L Normal 22-30 [facility] Comment on above: Order Comment: Speci men Type: BLOOD SPECIMENOrdering Facility: [facility] Address: [address] [place] [address] Performed By: #### 2 777-1, 15691-3 ####[facility]ATORYCLIA [id number] [place] [address] [place] Creatinine [Mass/Vol] 0.58 mg/dL Normal 0.58-0.96 [facility] Comment on above: Order Comment: Speci men Type: BLOOD SPECIMENOrdering Facility: [facility] Address: [address] [place] [address] Performed By: #### 2 777-1, 42157-6 ####[facility]ORATORYCLIA [id number] [place] [address] [place] eGFRcr SerPlBld CKD-EPI 2020 95 mL/min/1.73m??? Normal >=60 [facility] Comment on above: Order Comment: Franco newton Type: BLOOD SPECIMENOrdering Facility: [facility] Address: [address] [place] [address] Result Comment: Yessica mated Glomerular Filtration Rate [...] actual GFR. Performed By: #### 2 777-1, 83644-5 ####[facility] LABORATORYCLIA [id number] [place] [address] [place] Glucose [Mass/Vol] 162 mg/dL High 74-99 [facility] Comment on above: Order Comment: Franco newton Type: BLOOD SPECIMENOrdering Facility: [facility] Address: [address] [place] [address] Result Comment: The [place] [employer] (ADA) provides guidance for cutoff [...] Standards of Medical Care in Diabetes 2016, [place] [employer]. Diabetes Care. 2016.39(Suppl 1). Performed By: #### 2 777-1, 68317-0 ####[facility] LABORATORYCLIA [id number] [place] [id number] [place] Potassium [Moles/Vol] 4.1 mmol/L Normal 3.7-5.1 [facility] Comment on above: Order Comment: Speci men Type: BLOOD SPECIMENOrdering Facility: [facility] Address: [address] [place] [address] Performed By: #### 2 777-1, 57898-5 ####[facility] LABORATORYCLIA [id number] [address] STATES [facility] Sodium [Moles/Vol] 138 mmol/L Normal 136-144 [facility] Comment on above: Order Comment: Speci men Type: BLOOD SPECIMENOrdering Facility: [facility] Address: [address] [place] [address] Performed By: #### 2 777-1, 49645-9 ####[facility] LABORATORYCLIA [id number] [address] STATES OF [facility] Urea nitrogen [Mass/Vol] 18 mg/dL Normal 7-21 [facility] Comment on above: Order Comment: Speci men Type: BLOOD SPECIMENOrdering Facility: [facility] Address: [address] [place] [address] Performed By: #### 2 777-1, 06522-4 ####[facility]ORATORYCLIA [id number] [address] [place] CASE MANAGEMon 04-12-2025 CASE MANAGEM Normal [facility] CBC panel Auto (Bld)on 04-12 Erythrocyte distribution width (RBC) [Ratio] 13.7 % Normal 11.5-15.0 [facility] Comment on above: Order Comment: Speci men Type: BLOOD SPECIMENOrdering Facility: [facility] Address: [address] [place] [address] Performed By: #### 5 8410-2 ####[facility] LABORATORYCLIA [id number] [address] Hematocrit (Bld) [Volume fraction] 39.4 % Normal 36.0-46.0 [facility] Comment on above: Order Comment: Speci men Type: BLOOD SPECIMENOrdering Facility: [facility] Address: [address] [place] [address] Performed By: #### 5 8410-2 ####[facility] LABORATORYCLIA [id number] [address] Hemoglobin (Bld) [Mass/Vol] 13.3 g/dL Normal 11.5-15.5 [facility] Comment on above: Order Comment: Speci men Type: BLOOD SPECIMENOrdering Facility: [facility] Address: [address] [place] [address] Performed By: #### 5 8410-2 ####[facility] LABORATORYCLIA [id number] [address] STATES OF [facility] MCH (RBC) [Entitic mass] 28.4 pg Normal 26.0-34.0 [facility] Comment on above: Order Comment: Speci men Type: BLOOD SPECIMENOrdering Facility: [facility] Address: [address] [place] [address] Performed By: #### 5 8410-2 ####[facility]ORYCLIA [id number] [address] MCHC (RBC) [Mass/Vol] 33.8 g/dL Normal 30.5-36.0 [facility] Comment on above: Order Comment: Speci men Type: BLOOD SPECIMENOrdering Facility: [facility] Address: [address] [place] [address] Performed By: #### 5 8410-2 ####[facility] LABORATORYCLIA [id number] [address] STATES [facility] MCV (RBC) [Entitic vol] 84.0 fL Normal 80.0-100.0 [facility] Comment on above: Order Comment: Speci men Type: BLOOD SPECIMENOrdering Facility: [facility] Address: [address] [place] [address] Performed By: #### 5 8410-2 ####[facility] LABORATORYCLIA [id number] [address] [place] Nucleated RBC (Bld) [#/Vol] 10*3/uL Normal <0.01 [facility] Comment on above: Order Comment: Speci men Type: BLOOD SPECIMENOrdering Facility: [facility] Address: [address] [place] [address] Performed By: #### 5 8410-2 ####[facility] LABORATORYCLIA [id number] [place] [address] [place] Platelet mean volume (Bld) [Entitic vol] 9.8 fL Normal 9.0-12.7 [facility] Comment on above: Order Comment: Speci men Type: BLOOD SPECIMENOrdering Facility: [facility] Address: [address] [place] [address] Performed By: #### 5 8410-2 ####[facility] LABORATORYCLIA [id number] [place] [address] [place] Platelets (Bld) [#/Vol] 193 10*3/uL Normal 150-400 [facility] Comment on above: Order Comment: Speci men Type: BLOOD SPECIMENOrdering Facility: [facility] Address: [address] [place] [address] Performed By: #### 5 8410-2 ####[facility] LABORATORYCLIA [id number] [place] [address] [place] RBC (Bld) [#/Vol] 4.69 10*6/uL Normal 3.90-5.20 [facility] Comment on above: Order Comment: Speci men Type: BLOOD SPECIMENOrdering Facility: [facility] Address: [address] [place] [address] Performed By: #### 5 8410-2 ####[facility] LABORATORYCLIA [id number] [place] [address] [place] WBC (Bld) [#/Vol] 8.84 10*3/uL Normal 3.70-11.00 [facility] Comment on above: Order Comment: Speci men Type: BLOOD SPECIMENOrdering Facility: [facility] Address: [address] [place] [address] Performed By: #### 5 8410-2 ####[facility] LABORATORYCLIA [id number] [address] [place] CONSULT PROGon 04-12-2025 CONSULT PROG Normal [facility] Phosphate SerPl-mCncon 04-12 Phosphate [Mass/Vol] 3.0 mg/dL Normal 2.7-4.8 [facility] Comment on above: Order Comment: Speci men Type: BLOOD SPECIMENOrdering Facility: [facility] Address: [address] [place] [address] Performed By: #### 2 777-1, 11301-7 ####[facility] LABORATORYCLIA [id number] [address] TYPE + SCREENon 04-12-2025 ABO O Normal [facility] Comment on above: Order Comment: Speci men Type: BLOOD SPECIMENOrdering Facility: [facility] Address: [address] [place] [address] Performed By: #### T SCR ####[facility] BLO[facility] BANKCLIA [id number] [address] [place] Rh Nom (Bld) Positive Normal [facility] Comment on above: Order Comment: Speci men Type: BLOOD SPECIMENOrdering Facility: [facility] Address: [address] [place] [address] Performed By: #### T SCR ####[facility] BLO[facility] BANKCLIA [id number] [address] [place] TYPE AND SCREEN EXPIRATION 04/15/2025 23:59 Normal [facility] Comment on above: Order Comment: Speci men Type: BLOOD SPECIMENOrdering Facility: [facility] Address: [address] [place] [address] Performed By: #### T SCR ####[facility] B[facility] BANKCLIA [id number] [address] [place] aPTT PPPon 04-12-2025 aPTT Coag (PPP) [Time] 52.8 s High 23.0-32.4 [facility] Comment on above: Order Comment: Speci men Type: BLOOD SPECIMENOrdering Facility: [facility] Address: [address] [place] [address] Performed By: #### 1 4979-9 ####[facility]ORY[facility] [id number] [address] aPTT Coag (PPP) [Time] 111.1 s High 23.0-32.4 [facility] Comment on above: Order Comment: Speci men Type: BLOOD SPECIMENOrdering Facility: [facility] Address: [address] [place] [address] Performed By: #### 1 4979-9 ####[facility] LABORATORYCLIA [id number] [address] STATES OF [facility] aPTT Coag (PPP) [Time] 49.0 s High 23.0-32.4 [facility] Comment on above: Order Comment: Speci men Type: BLOOD SPECIMENOrdering Facility: [facility] Address: [address] [place] [address] Performed By: #### 1 4979-9 ####ST. [facility]ATORYCLIA [id number] [address] STATES OF [facility] aPTT Coag (PPP) [Time] 57.9 s High 23.0-32.4 [facility] Comment on above: Order Comment: Speci men Type: BLOOD SPECIMENOrdering Facility: [facility] Address: [address] [place] [address] Performed By: #### 1 4979-9 ####[facility]ATORYCLIA [id number] [address] [place] [id number] 04-11-2025 [id number] Normal [facility] Basic metabolic 2000 panelon 04-11-2025 Anion gap [Moles/Vol] 8 mmol/L Normal 8-15 [facility] Comment on above: Order Comment: Speci men Type: BLOOD SPECIMENOrdering Facility: [facility] Address: [address] [place] [address] Performed By: #### 2 4321-2, 2777-1 ####[facility]ATORYCLIA [id number] [place] [address] [place] Calcium [Mass/Vol] 8.4 mg/dL Low 8.5-10.2 [facility] Comment on above: Order Comment: Speci men Type: BLOOD SPECIMENOrdering Facility: [facility] Address: [address] [place] [address] Performed By: #### 2 4321-2, 277- ####[facility]ATORYCLIA [id number] [place] [address] [place] Chloride [Moles/Vol] 101 mmol/L Normal 98-107 [facility] Comment on above: Order Comment: Speci men Type: BLOOD SPECIMENOrdering Facility: [facility] Address: [address] [place] [address] Performed By: #### 2 4321-2, 2776- ####[facility]ORYCLIA [id number] [address] [place] CO2 [Moles/Vol] 23 mmol/L Normal 22-30 [facility] Comment on above: Order Comment: Speci men Type: BLOOD SPECIMENOrdering Facility: [facility] Address: [address] [place] [address] Performed By: #### 2 4321-2, 2776-06 ####[facility]ATORYCLIA [id number] [place] [address] [place] Creatinine [Mass/Vol] 0.62 mg/dL Normal 0.58-0.96 [facility] Comment on above: Order Comment: Speci men Type: BLOOD SPECIMENOrdering Facility: [facility] Address: [address] [place] [address] Performed By: #### 2 4321-2, 277- ####[facility]ATORYCLIA [id number] [address] [place] eGFRcr SerPlBld CKD-EPI 2021 94 mL/min/1.73m??? Normal >=60 [facility] Comment on above: Order Comment: Speci men Type: BLOOD SPECIMENOrdering Facility: [facility] Address: [address] [place] [address] Result Comment: Yessica mated Glomerular Filtration Rate [...] GFR. Performed By: #### 2 432-2, 2776-06 ####[facility]ATORYCLIA [id number] [place] [address] [place] Glucose [Mass/Vol] 189 mg/dL High 74-99 [facility] Comment on above: Order Comment: Franco newton Type: BLOOD SPECIMENOrdering Facility: [facility] Address: [address] [place] [address] Result Comment: The [place] [employer] (ADA) provides guidance for cutoff [...] Standards of Medical Care in Diabetes 2016, [place] [employer]. Diabetes Care. 2016.39(Suppl 1). Performed By: #### 2 432-2, 2776-06 ####[facility]ATORYCLIA [id number] [place] [address] [place] Potassium [Moles/Vol] 4.0 mmol/L Normal 3.7-5.1 [facility] Comment on above: Order Comment: Franco newton Type: BLOOD SPECIMENOrdering Facility: [facility] Address: [address] [place] [address] Performed By: #### 2 432-2, 2776-06 ####[facility]ATORYCLIA [id number] [place] [address] [place] [facility] Sodium [Moles/Vol] 132 mmol/L Low 136-144 [facility] Comment on above: Order Comment: Speci men Type: BLOOD SPECIMENOrdering Facility: [facility] Address: [address] [place] [address] Performed By: #### 2 4321-2, 2777-1 ####[facility]ATORYCLIA [id number] [address] STATES [facility] Urea nitrogen [Mass/Vol] 23 mg/dL High 7-21 [facility] Comment on above: Order Comment: Speci men Type: BLOOD SPECIMENOrdering Facility: [facility] Address: [address] [place] [address] Performed By: #### 2 4321-2, 2777-1 ####[facility]ATORYCLIA [id number] [address] OF [facility] CASE MANAGEMon 04-11-2025 CASE MANAGEM Normal [facility] CBC panel Auto (Bld)on 04-11 Erythrocyte distribution width (RBC) [Ratio] 13.4 % Normal 11.5-15.0 [facility] Comment on above: Order Comment: Speci men Type: BLOOD SPECIMENOrdering Facility: [facility] Address: [address] [place] [address] Performed By: #### 5 8410-2 ####[facility]ATORYCLIA [id number] [address] STATES OF [facility] Hematocrit (Bld) [Volume fraction] 39.6 % Normal 36.0-46.0 [facility] Comment on above: Order Comment: Speci men Type: BLOOD SPECIMENOrdering Facility: [facility] Address: [address] [place] [address] Performed By: #### 5 8410-2 ####[facility]ATORYCLIA [id number] [address] OF [facility] Hemoglobin (Bld) [Mass/Vol] 13.2 g/dL Normal 11.5-15.5 [facility] Comment on above: Order Comment: Speci men Type: BLOOD SPECIMENOrdering Facility: [facility] Address: [address] [place] [address] Performed By: #### 5 8410-2 ####[facility]ATORYCLIA [id number] [address] STATES [facility] MCH (RBC) [Entitic mass] 28.1 pg Normal 26.0-34.0 [facility] Comment on above: Order Comment: Speci men Type: BLOOD SPECIMENOrdering Facility: [facility] Address: [address] [place] [address] Performed By: #### 5 8410-2 ####[facility]ATORYCLIA [id number] [address] MCHC (RBC) [Mass/Vol] 33.3 g/dL Normal 30.5-36.0 [facility] Comment on above: Order Comment: Speci men Type: BLOOD SPECIMENOrdering Facility: [facility] Address: [address] [place] [address] Performed By: #### 5 8410-2 ####[facility]ATORYCLIA [id number] [address] STATES [facility] MCV (RBC) [Entitic vol] 84.4 fL Normal 80.0-100.0 [facility] Comment on above: Order Comment: Speci men Type: BLOOD SPECIMENOrdering Facility: [facility] Address: [address] [place] [address] Performed By: #### 5 8410-2 ####[facility]ATORYCLIA [id number] [address] Nucleated RBC (Bld) [#/Vol] 10*3/uL Normal <0.01 [facility] Comment on above: Order Comment: Speci men Type: BLOOD SPECIMENOrdering Facility: [facility] Address: [address] [place] [address] Performed By: #### 5 8410-2 ####[facility]ATORYCLIA [id number] [place] [address] [place] Platelet mean volume (Bld) [Entitic vol] 9.8 fL Normal 9.0-12.7 [facility] Comment on above: Order Comment: Speci men Type: BLOOD SPECIMENOrdering Facility: [facility] Address: [address] [place] [address] Performed By: #### 5 8410-2 ####[facility]ATORYCLIA [id number] [place] [address] [place] Platelets (Bld) [#/Vol] 191 10*3/uL Normal 150-400 [facility] Comment on above: Order Comment: Speci men Type: BLOOD SPECIMENOrdering Facility: [facility] Address: [address] [place] [address] Performed By: #### 5 8410-2 ####[facility] [id number] [place] [address] [place] RBC (Bld) [#/Vol] 4.69 10*6/uL Normal 3.90-5.20 [facility] Comment on above: Order Comment: Speci men Type: BLOOD SPECIMENOrdering Facility: [facility] Address: [address] [place] [address] Performed By: #### 5 8410-2 ####[facility]ATORYCLIA [id number] [place] [address] [place] WBC (Bld) [#/Vol] 8.94 10*3/uL Normal 3.70-11.00 [facility] Comment on above: Order Comment: Speci men Type: BLOOD SPECIMENOrdering Facility: [facility] Address: [address] [place] [address] Performed By: #### 5 8410-2 ####[facility]ATORYCLIA [id number] [address] [place] Phosphate SerPl-mCncon 04-11 Phosphate [Mass/Vol] 3.4 mg/dL Normal 2.7-4.8 [facility] Comment on above: Order Comment: Speci men Type: BLOOD SPECIMENOrdering Facility: [facility] Address: [address] [place] [address] Performed By: #### 2 4321-2, 2777-1 ####[facility]ATORYCLIA [id number] [address] [place] XR PELVIS 1V APon 04-11-2025 XR PELVIS 1V AP Normal [facility] aPTT PPPon 04-11-2025 aPTT Coag (PPP) [Time] 99.4 s High 23.0-32.4 [facility] Comment on above: Order Comment: Speci men Type: BLOOD SPECIMENOrdering Facility: [facility] Address: [address] [place] [address] Performed By: #### 1 4979-9 ####[facility]ATORYCLIA [id number] [address] STATES [facility] aPTT Coag (PPP) [Time] 51.0 s High 23.0-32.4 [facility] Comment on above: Order Comment: Speci men Type: BLOOD SPECIMENOrdering Facility: [facility] Address: [address] [place] [address] Performed By: #### 1 4979-9 ####[facility]ATORYCLIA [id number] [address] STATES OF [facility] aPTT Coag (PPP) [Time] 58.8 s High 23.0-32.4 [facility] Comment on above: Order Comment: Speci men Type: BLOOD SPECIMENOrdering Facility: [facility] Address: [address] [place] [address] Performed By: #### 1 4979-9 ####[facility]ATORYCLIA [id number] [address] aPTT Coag (PPP) [Time] 94.8 s High 23.0-32.4 [facility] Comment on above: Order Comment: Speci men Type: BLOOD SPECIMENOrdering Facility: [facility] Address: [address] [place] [address] Performed By: #### 1 4979-9 ####[facility]ATORYCLIA [id number] [place] [address] [place] Basic metabolic 2000 panelon 04-10-2025 Anion gap [Moles/Vol] 7 mmol/L Low 8-15 [facility] Comment on above: Order Comment: Speci men Type: BLOOD SPECIMENOrdering Facility: [facility] Address: [address] [place] [address] Performed By: #### 2 4321-2, , 2776-06 ####[facility]ATORYCLIA [id number] [place] [address] [place] Calcium [Mass/Vol] 8.8 mg/dL Normal 8.5-10.2 [facility] Comment on above: Order Comment: Speci men Type: BLOOD SPECIMENOrdering Facility: [facility] Address: [address] [place] [address] Performed By: #### 2 4321-2, , 2776-06 ####[facility]ATORYCLIA [id number] [place] [address] [place] Chloride [Moles/Vol] 103 mmol/L Normal 98-107 [facility] Comment on above: Order Comment: Speci men Type: BLOOD SPECIMENOrdering Facility: [facility] Address: [address] [place] [address] Performed By: #### 2 4321-2, , 2776-06 ####[facility]ATORYCLIA [id number] [place] [address] [place] CO2 [Moles/Vol] 27 mmol/L Normal 22-30 [facility] Comment on above: Order Comment: Speci men Type: BLOOD SPECIMENOrdering Facility: [facility] Address: [address] [place] [address] Performed By: #### 2 4321-2, , 2776- ####[facility]ATORYCLIA [id number] [place] [address] [place] Creatinine [Mass/Vol] 0.64 mg/dL Normal 0.58-0.96 [facility] Comment on above: Order Comment: Farnco newton Type: BLOOD SPECIMENOrdering Facility: [facility] Address: [address] [place] [address] Performed By: #### 2 4321-2, 62265-6, 2776-06 ####[facility]ATORYCLIA [id number] [place] [id number] [facility] [place] eGFRcr SerPlBld CKD-EPI 2020 93 mL/min/1.73m??? Normal >=60 [facility] Comment on above: Order Comment: Franco newton Type: BLOOD SPECIMENOrdering Facility: [facility] Address: [address] [place] [address] Result Comment: Yessica mated Glomerular Filtration Rate [...] Performed By: #### 2 4321-2, , 2776-06 ####[facility]ATORYCLIA [id number] [address] [place] Glucose [Mass/Vol] 140 mg/dL High 74-99 [facility] Comment on above: Order Comment: Franco newton Type: BLOOD SPECIMENOrdering Facility: [facility] Address: [address] [place] [address] Result Comment: The [place] [employer] (ADA) provides guidance for cutoff [...] Standards of Medical Care in Diabetes 2016, [place] [employer]. Diabetes Care. 2016.39(Suppl 1). Performed By: #### 2 4321-2, , 2776-06 ####[facility]ATORYCLIA [id number] [place] [address] [place] Potassium [Moles/Vol] 4.0 mmol/L Normal 3.7-5.1 [facility] Comment on above: Order Comment: Speci men Type: BLOOD SPECIMENOrdering Facility: [facility] Address: [address] [place] [address] Performed By: #### 2 4321-2, , 2776-06 ####[facility]ATORYCLIA [id number] [address] STATES OF [facility] Sodium [Moles/Vol] 137 mmol/L Normal 136-144 [facility] Comment on above: Order Comment: Speci men Type: BLOOD SPECIMENOrdering Facility: [facility] Address: [address] [place] [address] Performed By: #### 2 4321-2, , 2776-06 ####[facility]ATORYCLIA [id number] [address] [place] Urea nitrogen [Mass/Vol] 16 mg/dL Normal 7-21 [facility] Comment on above: Order Comment: Víctori aman Type: BLOOD SPECIMENOrdering Facility: [facility] Address: [address] [place] [address] Performed By: #### 2 4321-2, , 2776-06 ####[facility]ATORYCLIA [id number] [place] [address] [place] CASE MGT INIT ASSESon 2024 CASE MGT INIT ASSES Normal [facility] CBC panel Auto (Bld)on 04-10 Erythrocyte distribution width (RBC) [Ratio] 13.6 % Normal 11.5-15.0 [facility] Comment on above: Order Comment: Speci men Type: BLOOD SPECIMENOrdering Facility: [facility] Address: [address] [place] [address] Performed By: #### 5 8410-2 ####[facility]ATORYCLIA [id number] [address] Hematocrit (Bld) [Volume fraction] 42.2 % Normal 36.0-46.0 [facility] Comment on above: Order Comment: Speci men Type: BLOOD SPECIMENOrdering Facility: [facility] Address: [address] [place] [address] Performed By: #### 5 8410-2 ####[facility]ATORYCLIA [id number] [address] [place] Hemoglobin (Bld) [Mass/Vol] 14.5 g/dL Normal 11.5-15.5 [facility] Comment on above: Order Comment: Speci men Type: BLOOD SPECIMENOrdering Facility: [facility] Address: [address] [place] [address] Performed By: #### 5 8410-2 ####[facility]ATORYCLIA [id number] [address] STATES [facility] MCH (RBC) [Entitic mass] 28.4 pg Normal 26.0-34.0 [facility] Comment on above: Order Comment: Speci men Type: BLOOD SPECIMENOrdering Facility: [facility] Address: [address] [place] [address] Performed By: #### 5 8410-2 ####[facility]ATORYCLIA [id number] [address] [place] MCHC (RBC) [Mass/Vol] 34.4 g/dL Normal 30.5-36.0 [facility] Comment on above: Order Comment: Speci men Type: BLOOD SPECIMENOrdering Facility: [facility] Address: [address] [place] [address] Performed By: #### 5 8410-2 ####[facility]ATORYCLIA [id number] [place] [address] [place] MCV (RBC) [Entitic vol] 82.7 fL Normal 80.0-100.0 [facility] Comment on above: Order Comment: Speci men Type: BLOOD SPECIMENOrdering Facility: [facility] Address: [address] [place] [address] Performed By: #### 5 8410-2 ####[facility]ATORYCLIA [id number] [place] [address] [place] Nucleated RBC (Bld) [#/Vol] 10*3/uL Normal <0.01 [facility] Comment on above: Order Comment: Speci men Type: BLOOD SPECIMENOrdering Facility: [facility] Address: [address] [place] [address] Performed By: #### 5 8410-2 ####[facility]ATORYCLIA [id number] [address] [place] Platelet mean volume (Bld) [Entitic vol] 9.5 fL Normal 9.0-12.7 [facility] Comment on above: Order Comment: Speci men Type: BLOOD SPECIMENOrdering Facility: [facility] Address: [address] [place] [address] Performed By: #### 5 8410-2 ####[facility]ATORYCLIA [id number] [address] [place] Platelets (Bld) [#/Vol] 200 10*3/uL Normal 150-400 [facility] Comment on above: Order Comment: Speci men Type: BLOOD SPECIMENOrdering Facility: [facility] Address: [address] [place] [address] Performed By: #### 5 8410-2 ####[facility]ATORYCLIA [id number] [address] [place] RBC (Bld) [#/Vol] 5.10 10*6/uL Normal 3.90-5.20 [facility] Comment on above: Order Comment: Speci men Type: BLOOD SPECIMENOrdering Facility: [facility] Address: [address] [place] [address] Performed By: #### 5 8410-2 ####[facility]ATORYCLIA [id number] [address] [place] WBC (Bld) [#/Vol] 8.43 10*3/uL Normal 3.70-11.00 [facility] Comment on above: Order Comment: Speci men Type: BLOOD SPECIMENOrdering Facility: [facility] Address: [address] [place] [address] Performed By: #### 5 8410-2 ####[facility]ATORYCLIA [id number] [address] STATES OF [facility] Erythrocyte distribution width (RBC) [Ratio] 13.5 % Normal 11.5-15.0 [facility] Comment on above: Order Comment: Speci men Type: BLOOD SPECIMENOrdering Facility: [facility] Address: [address] [place] [address] Performed By: #### 5 8410-2 ####[facility]ATORYCLIA [id number] [address] Hematocrit (Bld) [Volume fraction] 38.2 % Normal 36.0-46.0 [facility] Comment on above: Order Comment: Speci men Type: BLOOD SPECIMENOrdering Facility: [facility] Address: [address] [place] [address] Performed By: #### 5 8410-2 ####[facility]ORYCLIA [id number] [address] Hemoglobin (Bld) [Mass/Vol] 12.9 g/dL Normal 11.5-15.5 [facility] Comment on above: Order Comment: Speci men Type: BLOOD SPECIMENOrdering Facility: [facility] Address: [address] [place] [address] Performed By: #### 5 8410-2 ####[facility]ORYCLIA [id number] [address] [place] MCH (RBC) [Entitic mass] 28.0 pg Normal 26.0-34.0 [facility] Comment on above: Order Comment: Speci men Type: BLOOD SPECIMENOrdering Facility: [facility] Address: [address] [place] [address] Performed By: #### 5 8410-2 ####[facility]ATORYCLIA [id number] [address] MCHC (RBC) [Mass/Vol] 33.8 g/dL Normal 30.5-36.0 [facility] Comment on above: Order Comment: Speci men Type: BLOOD SPECIMENOrdering Facility: [facility] Address: [address] [place] [address] Performed By: #### 5 8410-2 ####[facility]ORYCLIA [id number] [address] MCV (RBC) [Entitic vol] 83.0 fL Normal 80.0-100.0 [facility] Comment on above: Order Comment: Speci men Type: BLOOD SPECIMENOrdering Facility: [facility] Address: [address] [place] [address] Performed By: #### 5 8410-2 ####[facility]ORYCLIA [id number] [address] Nucleated RBC (Bld) [#/Vol] 10*3/uL Normal <0.01 [facility] Comment on above: Order Comment: Speci men Type: BLOOD SPECIMENOrdering Facility: [facility] Address: [address] [place] [address] Performed By: #### 5 8410-2 ####[facility]ORYCLIA [id number] [address] Platelet mean volume (Bld) [Entitic vol] 10.2 fL Normal 9.0-12.7 [facility] Comment on above: Order Comment: Speci men Type: BLOOD SPECIMENOrdering Facility: [facility] Address: [address] [place] [address] Performed By: #### 5 8410-2 ####[facility]ORYCLIA [id number] [address] Platelets (Bld) [#/Vol] 213 10*3/uL Normal 150-400 [facility] Comment on above: Order Comment: Speci men Type: BLOOD SPECIMENOrdering Facility: [facility] Address: [address] [place] [address] Performed By: #### 5 8410-2 ####[facility]ORYCLIA [id number] [place] [address] [place] RBC (Bld) [#/Vol] 4.60 10*6/uL Normal 3.90-5.20 [facility] Comment on above: Order Comment: Speci men Type: BLOOD SPECIMENOrdering Facility: [facility] Address: [address] [place] [address] Performed By: #### 5 8410-2 ####[facility]ATORYCLIA [id number] [address] WBC (Bld) [#/Vol] 7.37 10*3/uL Normal 3.70-11.00 [facility] Comment on above: Order Comment: Speci men Type: BLOOD SPECIMENOrdering Facility: [facility] Address: [address] [place] [address] Performed By: #### 5 8410-2 ####[facility]ATORYCLIA [id number] [address] CONSULT PROGon 04-10-2025 CONSULT PROG Normal [facility] Magnesium SerPl-mCncon 04-10 Magnesium [Mass/Vol] 1.9 mg/dL Normal 1.7-2.3 [facility] Comment on above: Order Comment: Speci men Type: BLOOD SPECIMENOrdering Facility: [facility] Address: [address] [place] [address] Performed By: #### 2 4321-2, 71097-4, 2777-1 ####[facility]ORYCLIA [id number] [address] [place] PT panel Coag (PPP)on 2024 INR Coag (PPP) [Relative time] 1.1 {INR} Normal 0.9-1.3 [facility] Comment on above: Order Comment: Franco newton Type: BLOOD SPECIMENOrdering Facility: [facility] Address: [address] [place], [place] [address] Result Comment: Tequila min K Antagonist (VKA) Therapeutic Range: INR 2 to 3 (Target INR of 2.5)Note: For patients treated with VKA drugs, such as warfarin, the [place] [employer] 2012 Guideline recommends [...] al. Chest 2012, 141:7S-47SNishimmary RA, et al. [facility] 2017, 70: 252-289 Performed By: #### 3 4528-0, 13931-4 ####[facility]ATORYCLIA [id number] [place] [address] [place] PT Coag (PPP) [Time] 11.5 s Normal 9.7-13.0 [facility] Comment on above: Order Comment: Franco newton Type: BLOOD SPECIMENOrdering Facility: [facility] Address: [address] [id number] Performed By: #### 3 4528-0, 77214-2 ####[facility]ATORYCLIA [id number] [place] [address] [place] Phosphate SerPl-mCncon 04-10 Phosphate [Mass/Vol] 4.3 mg/dL Normal 2.7-4.8 [facility] Comment on above: Order Comment: Franco newton Type: BLOOD SPECIMENOrdering Facility: [facility] Address: [address] [place] [address] Performed By: #### 2 4321-2, 27168-9, 2777-1 ####[facility]ORYCLIA [id number] [address] STATES OF [facility] aPTT PPPon 04-10-2025 aPTT Coag (PPP) [Time] 83.4 s High 23.0-32.4 [facility] Comment on above: Order Comment: Speci men Type: BLOOD SPECIMENOrdering Facility: [facility] Address: [address] [place] [address] Performed By: #### 1 4979-9 ####[facility]ATORYCLIA [id number] [address] STATES OF [facility] aPTT Coag (PPP) [Time] 27.1 s Normal 23.0-32.4 [facility] Comment on above: Order Comment: Speci men Type: BLOOD SPECIMENOrdering Facility: [facility] Address: [address] [place] [address] Performed By: #### 3 4528-0, 42363-2 ####[facility]ATORYCLIA [id number] [place] [address] [place] Basic metabolic 2000 panelon 04-09-2025 Anion gap [Moles/Vol] 10 mmol/L Normal 8-15 [facility] Comment on above: Order Comment: Speci men Type: BLOOD SPECIMENOrdering Facility: [facility] Address: [address] [place] [address] Performed By: #### 2 777-1, 36526-1, ####[facility]ATORYCLIA [id number] [place] [address] [place] Calcium [Mass/Vol] 8.2 mg/dL Low 8.5-10.2 [facility] Comment on above: Order Comment: Speci men Type: BLOOD SPECIMENOrdering Facility: [facility] Address: [address] [place] [address] Performed By: #### 2 777-1, 72728-1, ####[facility]ATORYCLIA [id number] [place] [address] [place] Chloride [Moles/Vol] 103 mmol/L Normal 98-107 [facility] Comment on above: Order Comment: Speci men Type: BLOOD SPECIMENOrdering Facility: [facility] Address: [address] [place] [address] Performed By: #### 2 777-1, 06922-4, 16628-2 ####[facility] [id number] [place] [id number] [facility] [place] CO2 [Moles/Vol] 25 mmol/L Normal 22-30 [facility] Comment on above: Order Comment: Speci men Type: BLOOD SPECIMENOrdering Facility: [facility] Address: [address] [place] [address] Performed By: #### 2 777-1, 47508-2, 12629-1 ####[facility]ITALCLIA [id number] [address] STATES OF [facility] Creatinine [Mass/Vol] 0.60 mg/dL Normal 0.58-0.96 [facility] Comment on above: Order Comment: Speci men Type: BLOOD SPECIMENOrdering Facility: [facility] Address: [address] [place] [address] Performed By: #### 2 777-1, 72704-6, 59994-2 ####[facility]ITALCLIA [id number] [address] [place] eGFRcr SerPlBld CKD-EPI 2020 94 mL/min/1.73m??? Normal >=60 [facility] Comment on above: Order Comment: Speci men Type: BLOOD SPECIMENOrdering Facility: [facility] Address: [address] [place] [address] Result Comment: Yessica mated Glomerular Filtration Rate [...] actual GFR. Performed By: #### 2 777-1, 28527-0, ####[facility]ATORYCLIA [id number] [place] [address] [place] Glucose [Mass/Vol] 116 mg/dL High 74-99 [facility] Comment on above: Order Comment: Franco newton Type: BLOOD SPECIMENOrdering Facility: [facility] Address: [address] [place] [address] Result Comment: The [place] [employer] (ADA) provides guidance for cutoff [...] Standards of Medical Care in Diabetes 2016, [place] [employer]. Diabetes Care. 2016.39(Suppl 1). Performed By: #### 2 777-1, , ####[facility]ATORYCLIA [id number] [place] [address] [place] Potassium [Moles/Vol] 3.7 mmol/L Normal 3.7-5.1 [facility] Comment on above: Order Comment: Franco newton Type: BLOOD SPECIMENOrdering Facility: [facility] Address: [address] [place] [address] Performed By: #### 2 777-1, 12928-8, ####[facility]ATORYCLIA [id number] [place] [address] [place] Sodium [Moles/Vol] 138 mmol/L Normal 136-144 [facility] Comment on above: Order Comment: Franco newton Type: BLOOD SPECIMENOrdering Facility: [facility] Address: [address] [place] [address] Performed By: #### 2 777-1, 41226-5, 42159-1 ####[facility]ATORYCLIA [id number] [address] STATES [facility] Urea nitrogen [Mass/Vol] 14 mg/dL Normal 7-21 [facility] Comment on above: Order Comment: Speci men Type: BLOOD SPECIMENOrdering Facility: [facility] Address: [address] [place] [address] Performed By: #### 2 777-1, 36608-6, ####[facility]ATORYCLIA [id number] [address] CBC panel Auto (Bld)on 04-09 Erythrocyte distribution width (RBC) [Ratio] 13.5 % Normal 11.5-15.0 [facility] Comment on above: Order Comment: Speci men Type: BLOOD SPECIMENOrdering Facility: [facility] Address: [address] [place] [address] Performed By: #### 5 8410-2 ####[facility]ATORYCLIA [id number] [address] Hematocrit (Bld) [Volume fraction] 35.2 % Low 36.0-46.0 [facility] Comment on above: Order Comment: Speci men Type: BLOOD SPECIMENOrdering Facility: [facility] Address: [address] [place] [address] Performed By: #### 5 8410-2 ####[facility]ORYCLIA [id number] [address] STATES OF [facility] Hemoglobin (Bld) [Mass/Vol] 11.7 g/dL Normal 11.5-15.5 [facility] Comment on above: Order Comment: Speci men Type: BLOOD SPECIMENOrdering Facility: [facility] Address: [address] [place] [address] Performed By: #### 5 8410-2 ####[facility]ATORYCLIA [id number] [address] STATES [facility] MCH (RBC) [Entitic mass] 27.8 pg Normal 26.0-34.0 [facility] Comment on above: Order Comment: Speci men Type: BLOOD SPECIMENOrdering Facility: [facility] Address: [address] [place] [address] Performed By: #### 5 8410-2 ####[facility]ATORYCLIA [id number] [address] [place] MCHC (RBC) [Mass/Vol] 33.2 g/dL Normal 30.5-36.0 [facility] Comment on above: Order Comment: Speci men Type: BLOOD SPECIMENOrdering Facility: [facility] Address: [address] [place] [address] Performed By: #### 5 8410-2 ####[facility]ATORYCLIA [id number] [address] STATES [facility] MCV (RBC) [Entitic vol] 83.6 fL Normal 80.0-100.0 [facility] Comment on above: Order Comment: Speci men Type: BLOOD SPECIMENOrdering Facility: [facility] Address: [address] [place] [address] Performed By: #### 5 8410-2 ####[facility]ATORYCLIA [id number] [address] Nucleated RBC (Bld) [#/Vol] 10*3/uL Normal <0.01 [facility] Comment on above: Order Comment: Speci men Type: BLOOD SPECIMENOrdering Facility: [facility] Address: [address] [place] [address] Performed By: #### 5 8410-2 ####[facility]ATORYCLIA [id number] [address] Platelet mean volume (Bld) [Entitic vol] 10.1 fL Normal 9.0-12.7 [facility] Comment on above: Order Comment: Speci men Type: BLOOD SPECIMENOrdering Facility: [facility] Address: [address] [place] [address] Performed By: #### 5 8410-2 ####[facility]ORYCLIA [id number] [address] [place] Platelets (Bld) [#/Vol] 167 10*3/uL Normal 150-400 [facility] Comment on above: Order Comment: Speci men Type: BLOOD SPECIMENOrdering Facility: [facility] Address: [address] [place] [address] Performed By: #### 5 8410-2 ####[facility]ORYCLIA [id number] [address] [place] RBC (Bld) [#/Vol] 4.21 10*6/uL Normal 3.90-5.20 [facility] Comment on above: Order Comment: Speci men Type: BLOOD SPECIMENOrdering Facility: [facility] Address: [address] [place] [address] Performed By: #### 5 8410-2 ####[facility]ORYCLIA [id number] [address] WBC (Bld) [#/Vol] 6.44 10*3/uL Normal 3.70-11.00 [facility] Comment on above: Order Comment: Speci men Type: BLOOD SPECIMENOrdering Facility: [facility] Address: [address] [place] [address] Performed By: #### 5 8410-2 ####[facility]ATORYCLIA [id number] [address] [place] CONSULTon 04-09-2025 CONSULT Normal [facility] Calcium.ionized [Moles/Vol]o n 04-09-2025 Calcium.ionized (BldV) [Mass/Vol] 1.11 mmol/L Normal 1.08-1.30 [facility] Comment on above: Order Comment: Speci men Type: BLOOD SPECIMENOrdering Facility: [facility] Address: [address] [place] [address] Performed By: #### 1 995-0 ####[facility]ORYCLIA [id number] [address] Calcium.ionized adjusted to pH 7.4 (Bld) [Moles/Vol] 1.12 mmol/L Normal 1.08-1.30 [facility] Comment on above: Order Comment: Speci men Type: BLOOD SPECIMENOrdering Facility: [facility] Address: [address] [place] [address] Performed By: #### 1 995-0 ####[facility]ATORYCLIA [id number] [address] Magnesium [facility] 04-09 Magnesium [Mass/Vol] 1.6 mg/dL Low 1.7-2.3 [facility] Comment on above: Order Comment: Speci men Type: BLOOD SPECIMENOrdering Facility: [facility] Address: [address] [place] [address] Performed By: #### 2 777-1, 15981-8, ####[facility]ORYCLIA [id number] [address] [place] NURSING PROGon 04-09-2025 NURSING PROG Normal [facility] Phosphate SerPl-ncon 04-09 Phosphate [Mass/Vol] 3.6 mg/dL Normal 2.7-4.8 [facility] Comment on above: Order Comment: Speci men Type: BLOOD SPECIMENOrdering Facility: [facility] Address: [address] [place] [address] Performed By: #### 2 777-1, 38414-1, ####[facility]ATORYCLIA [id number] [address] [place] XR FEMUR 2V AP/LAT LTon 03-16 XR FEMUR 2V AP/LAT LT Normal [facility] XR PELVIS 1V APon 04-09-2025 XR PELVIS 1V AP Normal [facility] aPTT PPPon 04-09-2025 aPTT Coag (PPP) [Time] 80.6 s High 23.0-32.4 [facility] Comment on above: Order Comment: Speci men Type: BLOOD SPECIMENOrdering Facility: [facility] Address: [address] [place] [address] Performed By: #### 1 4979-9 ####[facility]ATORYCLIA [id number] [address] [place] aPTT Coag (PPP) [Time] 111.6 s High 23.0-32.4 [facility] Comment on above: Order Comment: Speci men Type: BLOOD SPECIMENOrdering Facility: [facility] Address: [address] [place] [address] Performed By: #### 1 4979-9 ####[facility]ATORYCLIA [id number] [place] [address] [place] Basic metabolic 2000 panelon 04-08-2025 Anion gap [Moles/Vol] 10 mmol/L Normal 8-15 [facility] Comment on above: Order Comment: Speci men Type: BLOOD SPECIMENOrdering Facility: [facility] Address: [address] [place] [address] Performed By: #### 2 4321-2, 68117-7, 2777-1, LIPNF, 60914-5 ####[facility]ITALCLIA [id number] [place] [address] [place] Calcium [Mass/Vol] 9.3 mg/dL Normal 8.5-10.2 [facility] Comment on above: Order Comment: Speci men Type: BLOOD SPECIMENOrdering Facility: [facility] Address: [address] [place] [address] Performed By: #### 2 4321-2, 42276-4, 2777-1, LIPNF, 72431-2 ####[facility]ORYCLIA [id number] [place] [address] [place] Chloride [Moles/Vol] 101 mmol/L Normal 98-107 [facility] Comment on above: Order Comment: Speci men Type: BLOOD SPECIMENOrdering Facility: [facility] Address: [address] [place] [address] Performed By: #### 2 4321-2, 04157-7, 2777-1, LIPNF, 98402-7 ####[facility]ITALCLIA [id number] [place] [address] [place] CO2 [Moles/Vol] 28 mmol/L Normal 22-30 [facility] Comment on above: Order Comment: Speci men Type: BLOOD SPECIMENOrdering Facility: [facility] Address: [address] [place] [address] Performed By: #### 2 4321-2, 38240-5, 7-1, LIPNF, 40017-5 ####[facility]ITALIA [id number] [address] [place] Creatinine [Mass/Vol] 0.53 mg/dL Low 0.58-0.96 [facility] Comment on above: Order Comment: Speci men Type: BLOOD SPECIMENOrdering Facility: [facility] Address: [address] [place] [address] Performed By: #### 2 4321-2, 96383-8, 7-1, LIPNF, 17199-8 ####[facility]ITALIA [id number] [address] [place] eGFRcr SerPlBld CKD-EPI 2020 97 mL/min/1.73m??? Normal >=60 [facility] Comment on above: Order Comment: Speci men Type: BLOOD SPECIMENOrdering Facility: [facility] Address: [address] [place] [address] Result Comment: Yessica mated Glomerular Filtration Rate [...] actual GFR. Performed By: #### 2 4321-2, 46937-7, 2777-1, LIPNF, 11416-6 ####[facility]ORYCLIA [id number] [place] [address] [place] Glucose [Mass/Vol] 177 mg/dL High 74-99 [facility] Comment on above: Order Comment: Speci men Type: BLOOD SPECIMENOrdering Facility: [facility] Address: [address] [place] [address] Result Comment: The [place] [employer] (ADA) provides guidance for cutoff [...] Standards of Medical Care in Diabetes 2016, [place] [employer]. Diabetes Care. 2016.39(Suppl 1). Performed By: #### 2 4321-2, 17266-1, 2777-1, LIPNF, 24224-0 ####[facility]PITALIA [id number] [place] [address] [place] Potassium [Moles/Vol] 3.7 mmol/L Normal 3.7-5.1 [facility] Comment on above: Order Comment: Speci men Type: BLOOD SPECIMENOrdering Facility: [facility] Address: [address] [place] [address] Performed By: #### 2 4321-2, , 2777-1, LIPNF, 28852-8 ####[facility]ORYCLIA [id number] [place] [address] [place] Sodium [Moles/Vol] 139 mmol/L Normal 136-144 [facility] Comment on above: Order Comment: Speci men Type: BLOOD SPECIMENOrdering Facility: [facility] Address: [address] [place] [address] Performed By: #### 2 4321-2, , 2777-1, LIPNF, 27854-1 ####[facility]ATORYCLIA [id number] [place] [address] [place] Urea nitrogen [Mass/Vol] 12 mg/dL Normal 7-21 [facility] Comment on above: Order Comment: Speci men Type: BLOOD SPECIMENOrdering Facility: [facility] Address: [address] [place] [address] Performed By: #### 2 4321-2, 47173-3, 2777-1, LIPNF, 45741-6 ####[facility]ORYCLIA [id number] [address] [place] CBC panel Auto (Bld)on 04-08 Erythrocyte distribution width (RBC) [Ratio] 13.4 % Normal 11.5-15.0 [facility] Comment on above: Order Comment: Speci men Type: BLOOD SPECIMENOrdering Facility: [facility] Address: [address] [place] [address] Performed By: #### 5 5454-3 ####[facility]CL[facility] [id number] [address] [place]#### 60807-0 ####[facility]ORYCLIA [id number] [address] STATES OF [facility] Hematocrit (Bld) [Volume fraction] 43.7 % Normal 36.0-46.0 [facility] Comment on above: Order Comment: Speci men Type: BLOOD SPECIMENOrdering Facility: [facility] Address: [address] [place] [address] Performed By: #### 5 5454-3 ####[facility] LABCLIA [id number] [place] [address] [place]#### 87290-6 ####[facility]ORYCLIA [id number] [address] [place] Hemoglobin (Bld) [Mass/Vol] 14.7 g/dL Normal 11.5-15.5 [facility] Comment on above: Order Comment: Speci men Type: BLOOD SPECIMENOrdering Facility: [facility] Address: [address] [place] [address] Performed By: #### 5 5454-3 ####[facility] LABCLIA [id number] [address]#### 02793-0 ####[facility]ORYCLIA [id number] [address] MCH (RBC) [Entitic mass] 28.0 pg Normal 26.0-34.0 [facility] Comment on above: Order Comment: Speci men Type: BLOOD SPECIMENOrdering Facility: [facility] Address: [address] [place] [address] Performed By: #### 5 5454-3 ####[facility] LABCLIA [id number] [address] [place]#### 16113-9 ####[facility]ORYCLIA [id number] [address] MCHC (RBC) [Mass/Vol] 33.6 g/dL Normal 30.5-36.0 [facility] Comment on above: Order Comment: Speci men Type: BLOOD SPECIMENOrdering Facility: [facility] Address: [address] [place] [address] Performed By: #### 5 5454-3 ####[facility] LABCLIA [id number] [address]#### 73681-1 ####[facility]ORYCLIA [id number] [address] MCV (RBC) [Entitic vol] 83.2 fL Normal 80.0-100.0 [facility] Comment on above: Order Comment: Speci men Type: BLOOD SPECIMENOrdering Facility: [facility] Address: [address] [place] [address] Performed By: #### 5 5454-3 ####[facility] LABCLIA [id number] [address] [place]#### 69920-4 ####[facility]ORYCLIA [id number] [address] Nucleated RBC (Bld) [#/Vol] 10*3/uL Normal <0.01 [facility] Comment on above: Order Comment: Speci men Type: BLOOD SPECIMENOrdering Facility: [facility] Address: [address] [place] [address] Performed By: #### 5 5454-3 ####[facility] LABCLIA [id number] [address]#### 16332-4 ####[facility]ORYCLIA [id number] [address] Platelet mean volume (Bld) [Entitic vol] 10.3 fL Normal 9.0-12.7 [facility] Comment on above: Order Comment: Speci men Type: BLOOD SPECIMENOrdering Facility: [facility] Address: [address] [place] [address] Performed By: #### 5 5454-3 ####[facility] LABCL[facility] [id number] [address]#### 46644-3 ####[facility]ORYCLIA [id number] [address] Platelets (Bld) [#/Vol] 200 10*3/uL Normal 150-400 [facility] Comment on above: Order Comment: Speci men Type: BLOOD SPECIMENOrdering Facility: [facility] Address: [address] [place] [address] Performed By: #### 5 5454-3 ####[facility]CL[facility] [id number] [address] [place]#### 88208-9 ####[facility]ORYCLIA [id number] [address] [place] RBC (Bld) [#/Vol] 5.25 10*6/uL High 3.90-5.20 [facility] Comment on above: Order Comment: Speci men Type: BLOOD SPECIMENOrdering Facility: [facility] Address: [address] [place] [address] Performed By: #### 5 5454-3 ####[facility] LABCLIA [id number] [address] [place]#### 30305-7 ####[facility]ORYCLIA [id number] [address] [place] WBC (Bld) [#/Vol] 8.02 10*3/uL Normal 3.70-11.00 [facility] Comment on above: Order Comment: Speci men Type: BLOOD SPECIMENOrdering Facility: [facility] Address: [address] [place] [address] Performed By: #### 5 5454-3 ####[facility] LABCLIA [id number] [address] [place]#### 60300-7 ####[facility]ORYCLIA [id number] [address] [place] CONSULTon 04-08-2025 CONSULT Normal [facility] CONSULT Normal [facility] CONSULT Normal [facility] Calcium.ionized [Moles/Vol]o n 04-08-2025 Calcium.ionized (BldV) [Mass/Vol] 1.19 mmol/L Normal 1.08-1.30 [facility] Comment on above: Order Comment: Speci men Type: BLOOD SPECIMENOrdering Facility: [facility] Address: [address] [place] [address] Performed By: #### 1 995-0 ####[facility] [facility]ORATORYCLIA [id number] [address] Calcium.ionized adjusted to pH 7.4 (Bld) [Moles/Vol] 1.20 mmol/L Normal 1.08-1.30 [facility] Comment on above: Order Comment: Speci men Type: BLOOD SPECIMENOrdering Facility: [facility] Address: [address] [place] [address] Performed By: #### 1 995-0 ####[facility] [facility]ORYCLIA [id number] [address] [place] ECG COMPLETEon 04-08-2025 ECG COMPLETE Normal [facility] HbA1c (Bld)on 04-08-2025 Average glucose Estimated from glycated hemoglobin (Bld) [Mass/Vol] 266 mg/dL Normal [facility] Comment on above: Order Comment: Víctorklaudia newton Type: BLOOD SPECIMENOrdering Facility: [facility] Address: [address] [place] [address] Result Comment: eAG: (Estimated average glucose) is a calculated value from HgbA1c and is rental sales representative of the average blood glucose level in the last 2-3 month period. Performed By: #### 5 5454-3 ####[facility] [id number] [address] [facility]#### 31775-0 ####[facility] LABORATORYCLIA [id number] [address] [place] [facility] HbA1c (Bld) [Mass fraction] 10.9 % High 4.3-5.6 [facility] Comment on above: Order Comment: Franco newton Type: BLOOD SPECIMENOrdering Facility: [facility] Address: [address] [place] [address] Result Comment: Amer ican Diabetes Association guidelines indicate that patients with HgbA1c in the range 5.7-6.4% are at increased risk for development of diabetes, and intervention by lifestyle modification may be beneficial. HgbA1c greater or equal to 6.5% is considered diagnostic of diabetes. Performed By: #### 5 5454-3 ####[facility] [id number] [address] [place]#### [address]9050-7 ####[facility]ORYCLIA [id number] [place] [id number] [place] [facility] Hepatic function 2000 panelo n 04-08-2025 Albumin [Mass/Vol] 3.5 g/dL Low 3.9-4.9 [facility] Comment on above: Order Comment: Speci men Type: BLOOD SPECIMENOrdering Facility: [facility] Address: [address] [place] [address] Performed By: #### 2 4321-2, 37046-0, 2777-1, LIPNF, 84335-6 ####[facility] LABORATORYCLIA [id number] [place] [address] [place] [facility] ALP [Catalytic activity/Vol] 73 U/L Normal 34-123 [facility] Comment on above: Order Comment: Speci men Type: BLOOD SPECIMENOrdering Facility: [facility] Address: [address] [place] [address] Performed By: #### 2 4321-2, 45119-8, 2777-1, LIPNF, 03360-3 ####[facility] LABORATORYCLIA [id number] [place] [address] [place] ALT With P-5'-P [Catalytic activity/Vol] 26 U/L Normal 7-38 [facility] Comment on above: Order Comment: Speci men Type: BLOOD SPECIMENOrdering Facility: [facility] Address: [address] [place] [address] Performed By: #### 2 4321-2, 43138-9, 2777-1, LIPNF, 38348-4 ####[facility] LABORATORYCLIA [id number] [place] [address] [place] AST With P-5'-P [Catalytic activity/Vol] 33 U/L Normal 13-35 [facility] Comment on above: Order Comment: Speci men Type: BLOOD SPECIMENOrdering Facility: [facility] Address: [address] [place] [address] Performed By: #### 2 4321-2, 67767-6, 2777-1, LIPNF, 65611-3 ####[facility] LABORATORYCLIA [id number] [place] [id number] [place] Bilirubin [Mass/Vol] 0.5 mg/dL Normal 0.2-1.3 [facility] Comment on above: Order Comment: Speci men Type: BLOOD SPECIMENOrdering Facility: [facility] Address: [address] [place] [address] Performed By: #### 2 4321-2, 58788-9, 2777-1, LIPNF, 13264-7 ####[facility] LABORATORYCLIA [id number] [address] OF [facility] Bilirubin.conjugated [Mass/Vol] 0.2 mg/dL Normal <0.3 [facility] Comment on above: Order Comment: Speci men Type: BLOOD SPECIMENOrdering Facility: [facility] Address: [address] [place] [address] Performed By: #### 2 4321-2, 03371-8, 7-1, LIPNF, 57421-0 ####[facility] LABORATORYCLIA [id number] [place] [address] [place] Protein [Mass/Vol] 6.4 g/dL Normal 6.3-8.0 [facility] Comment on above: Order Comment: Speci men Type: BLOOD SPECIMENOrdering Facility: [facility] Address: [address] [place] [address] Performed By: #### 2 4321-2, 20819-0, 7-1, LIPNF, 83504-4 ####[facility] LAB[facility]ATORYCLIA [id number] [place] [address] [place] [facility] LIPID PANEL, NONFASTINGon Cholesterol [Mass/Vol] 103 mg/dL Normal <200 [facility] Comment on above: Order Comment: Speci men Type: BLOOD SPECIMENOrdering Facility: [facility] Address: [address] [place] [address] Result Comment: <200 mg/dL, Desirable 200-239 mg/dL, Borderline high>239 mg/dL, High Performed By: #### 2 4321-2, 70579-8, 2777-1, LIPNF, 25376-2 ####[facility] LABORATORYCLIA [id number] [address] HDL CHOLESTEROL, NF 50 mg/dL Normal >39 [facility] Comment on above: Order Comment: Speci men Type: BLOOD SPECIMENOrdering Facility: [facility] Address: [address] [place] [address] Result Comment: 40-5 9 mg/dL, Acceptable>59 mg/dL, High: Negative risk factor for coronary heart disease<40 mg/dL, Low: Positive risk factor for coronary heart disease Performed By: #### 2 4321-2, 26680-1, 7-1, LIPNF, 75207-3 ####[facility] LABORATORYCLIA [id number] [address] LDL CHOLESTEROL CALCULATED, NF 33 mg/dL Normal <100 [facility] Comment on above: Order Comment: Franco aman Type: BLOOD SPECIMENOrdering Facility: [facility] Address: [address] [place] [address] Result Comment: <100 mg/dL, Optimal 100-129 mg/dL, Near optimal/above optimal 130-159 mg/dL, Borderline high 160-189 mg/dL, High>189 mg/dL, Very highSecondary prevention optimal LDL Cholesterol levels are recommended to be <70 mg/dLLDL cholesterol is calculated using the Dumont-NIH equation. Performed By: #### 2 4321-2, 90575-5, 7-1, LIPNF, 91917-2 ####[facility] LABORATORYCLIA [id number] [address] LDL/HDL RATIO, NF 0.66 mg/dL Normal <2.54 [facility] Comment on above: Order Comment: Speci men Type: BLOOD SPECIMENOrdering Facility: [facility] Address: [address] [place] [address] Result Comment: Serena nair:1. National Cholesterol Education Program ATP III Guideline At-A-Glance Quick Desk Reference: National Heart, Lung, and Blood [place]. National Institutes of Health. 2001: NIH Publication No. 01-3305.2. An International Atherosclerosis Society position paper: global recommendations for the management of dyslipidemia: executive summary, Atherosclerosis. 2014: 232(2):410-413. Performed By: #### 2 4321-2, 38844-5, 7-1, LIPNF, 60320-2 ####[facility] LABORATORYCLIA [id number] [address] [place] NON HDL CHOL, NF 53 mg/dL Normal <130 [facility] Comment on above: Order Comment: Speci men Type: BLOOD SPECIMENOrdering Facility: [facility] Address: [address] [place] [address] Result Comment: <130 mg/dL, Optimal 130-159 mg/dL, Near optimal/above optimal 160-189 mg/dL, Borderline high 190-219 mg/dL, High>219 mg/dL, Very highSecondary prevention optimal non HDL Cholesterol levels are recommended to be <100 mg/dL Performed By: #### 2 4321-2, , 2776-1, LIPNF, 72528-9 ####[facility] LABORATORYCLIA [id number] [address] STATES OF [facility] T CHOL/HDL RATIO NF 2.06 mg/dL Normal <5.10 [facility] Comment on above: Order Comment: Franco newton Type: BLOOD SPECIMENOrdering Facility: [facility] Address: [address] [place] [address] Performed By: #### 2 1-2, , 2776-1, LIPNF, 72558-3 ####[facility] LABORATORYCLIA [id number] [address] [place] TRIGLYCERIDES, NF 110 mg/dL Normal <150 [facility] Comment on above: Order Comment: Víctori men Type: BLOOD SPECIMENOrdering Facility: [facility] Address: [address] [place] [address] Result Comment: <150 mg/dL, Normal 150-199 mg/dL, Borderline high 200-499 mg/dL, High>499 mg/dL, Very high Performed By: #### 2 4321-2, 33239-9, 7-1, LIPNF, 88645-9 ####[facility] LABORATORYCLIA [id number] [place] [address] [place] VLDL CHOLESTEROL, NF 15 mg/dL Normal <30 [facility] Comment on above: Order Comment: Franco newton Type: BLOOD SPECIMENOrdering Facility: [facility] Address: [address] [place] [address] Performed By: #### 2 4321-2, 00037-8, 2777-1, LIP, 45779-7 ####[facility]ATORYCLIA [id number] [place] [address] [place] Magnesium SerPl-mCncon 04-08 Magnesium [Mass/Vol] 1.7 mg/dL Normal 1.7-2.3 [facility] Comment on above: Order Comment: Franco newton Type: BLOOD SPECIMENOrdering Facility: [facility] Address: [address] [place] [address] Performed By: #### 2 4321-2, 64756-8, 2777-1, [facility], 74926-9 ####[facility]ORATORYCLIA [id number] [place] [id number] [place] PT panel Coag (PPP)on 2024 INR Coag (PPP) [Relative time] 1.1 {INR} Normal 0.9-1.3 [facility] Comment on above: Order Comment: Franco newton Type: BLOOD SPECIMENOrdering Facility: [facility] Address: [address] [place] [address] Result Comment: Tequila min K Antagonist (VKA) Therapeutic Range: INR 2 to 3 (Target INR of 2.5)Note: For patients treated with VKA drugs, such as warfarin, the [place] [employer] 2012 Guideline recommends [...] al. Chest 2012, 141:7S-47SNishimura RA, et al. [facility] 2017, 70: 252-289 Performed By: #### 3 4528-0, 10925-9 ####[facility]ORATORYCLIA [id number] [place] [address] [place] PT Coag (PPP) [Time] 11.5 s Normal 9.7-13.0 [facility] Comment on above: Order Comment: Speci men Type: BLOOD SPECIMENOrdering Facility: [facility] Address: [address] [place] [address] Performed By: #### 3 4528-0, 28677-5 ####[facility] [id number] [address] STATES OF [facility] Phosphate SerPl-mCncon 04-08 Phosphate [Mass/Vol] 3.4 mg/dL Normal 2.7-4.8 [facility] Comment on above: Order Comment: Speci aman Type: BLOOD SPECIMENOrdering Facility: [facility] Address: [address] [place] [address] Performed By: #### 2 4321-2, 89494-3, 2777-1, LIPNF, 69706-7 ####[facility] [id number] [place] [address] [place] STAPHYLOCOCCUS AUREUS AND MR SA SCREEN, PCR, NASALon 04-08-2025 S. aureus and MRSA panel FINA+probe (Nose) Not detected Normal Not Detected [facility] Comment on above: Order Comment: Speci aman Type: SWABOrdering Facility: [facility] Address: [address] [place] [address] Performed By: #### S APCR ####[facility]ATORYCLIA [id number] [place] [id number] [place] aPTT PPPon 04-08-2025 aPTT Coag (PPP) [Time] s High 23.0-32.4 [facility] Comment on above: Order Comment: Speci men Type: BLOOD SPECIMENOrdering Facility: [facility] Address: [address] [place] [id number] Performed By: #### 1 4979-9 ####[facility] LABORATORYCLIA [id number] [place] [address] [place] aPTT Coag (PPP) [Time] 38.9 s High 23.0-32.4 [facility] Comment on above: Order Comment: Speci men Type: BLOOD SPECIMENOrdering Facility: [facility] Address: [place] [address] Performed By: #### 3 4528-0, 00221-4 ####[facility]ATORYCLIA [id number] [place] [id number] [facility] HbA1c (Bld) [Mass fraction]o n 05-16-2024 Interpretation and review of laboratory results Abnormal [facility] POC Hemoglobin A1Con 024 HbA1c (Bld) [Mass fraction] 6.4 % Abnormal 4.0 - 6.0 % [facility] BASIC METABOLIC PANELon Anion gap [Moles/Vol] 17 mmol/L Normal 10-20 [facility] Comment on above: Order Comment: [facility] has implemented the eGFR calculation approach that does not have a coefficient for race that conforms to the NKF-ASN Task Force Recommendations. Performed By: #### 4 6124 #### LAB [address] [place] [address] Adonay Hanks M.D. [id number] Calcium [Mass/Vol] 9.7 mg/dL Normal 8.4-10.2 [facility] Comment on above: Order Comment: [facility] has implemented the eGFR calculation approach that does not have a coefficient for race that conforms to the NKF-ASN Task Force Recommendations. Performed By: #### 4 6124 #### LAB [address] [place] [address] Adonay Hanks M.D. [id number] Chloride [Moles/Vol] 102 mmol/L Normal 98-108 [facility] Comment on above: Order Comment: [facility] has implemented the eGFR calculation approach that does not have a coefficient for race that conforms to the NKF-ASN Task Force Recommendations. Performed By: #### 4 6124 #### LAB [address] [place], [place] [address] Adonay Hanks M.D. [id number] Creatinine [Mass/Vol] 0.63 mg/dL Normal 0.60-1.10 [facility] Comment on above: Order Comment: [facility] has implemented the eGFR calculation approach that does not have a coefficient for race that conforms to the NKF-ASN Task Force Recommendations. Performed By: #### 4 6124 #### LAB [address] [place] [address] Adonay Hanks M.D. [id number] EGFR 94 mL/min/1.73 m2 Normal >=60 [facility] Comment on above: Order Comment: [facility] has implemented the eGFR calculation approach that does not have a coefficient for race that conforms to the NKF-ASN Task Force Recommendations. Result Comment: Yessica mated GFR was calculated using the 2020 CKD-EPI creatinine equation. Performed By: #### 4 6124 #### LAB [address] [place] [address] Adonay Hanks M.D. [id number] Glucose [Mass/Vol] 159 mg/dL High 65-99 [facility] Comment on above: Order Comment: [facility] has implemented the eGFR calculation approach that does not have a coefficient for race that conforms to the NKF-ASN Task Force Recommendations. Performed By: #### 4 6124 #### LAB [address] [place] [address] Adonay Hanks M.D. [id number] HCO3 (Bld) [Moles/Vol] 24 mmol/L Normal 21-32 [facility] Comment on above: Order Comment: [facility] has implemented the eGFR calculation approach that does not have a coefficient for race that conforms to the NKF-ASN Task Force Recommendations. Performed By: #### 4 6124 #### LAB [address] [place] [address] Adonay Hanks M.D. [id number] Potassium [Moles/Vol] 4.1 mmol/L Normal 3.5-5.1 [facility] Comment on above: Order Comment: [facility] has implemented the eGFR calculation approach that does not have a coefficient for race that conforms to the NKF-ASN Task Force Recommendations. Performed By: #### 4 6124 #### LAB [address] [place] [address] Adonay Hanks M.D. [id number] Sodium [Moles/Vol] 139 mmol/L Normal 135-145 [facility] Comment on above: Order Comment: [facility] has implemented the eGFR calculation approach that does not have a coefficient for race that conforms to the NKF-ASN Task Force Recommendations. Performed By: #### 4 6124 #### LAB [address] [place] [address] Adonay Hanks M.D. [id number] Urea nitrogen [Mass/Vol] 22 mg/dL Normal 8-25 [facility] Comment on above: Order Comment: [facility] has implemented the eGFR calculation approach that does not have a coefficient for race that conforms to the NKF-ASN Task Force Recommendations. Performed By: #### 4 6124 #### LAB [address] [place] [address] Adonay Hanks M.D. [id number] Urea nitrogen/Creatinine [Mass ratio] 34.9 mg/mg High 10.0-20.0 [facility] Comment on above: Order Comment: [facility] has implemented the eGFR calculation approach that does not have a coefficient for race that conforms to the NKF-ASN Task Force Recommendations. Performed By: #### 4 6124 #### LAB [address] [place] [address] Adonay Hanks M.D. [id number] CBC WITH AUTO DIFFERENTIALon 02-17-2024 AUTO NRBC 0.0 % [facility] Comment on above: Performed By: #### L [id number] #### LAB [address] [place] [address] Adonay Hanks M.D. [id number] AUTO NRBC ABS COUNT 0.00 K/mcL Normal 0.00-0.00 [facility] Comment on above: Performed By: #### L [id number] #### LAB [address] [place] [address] Adonay Hanks M.D. [id number] BASOPHILS ABSOLUTE COUNT 0.06 K/mcL Normal 0.00-0.30 [facility] Comment on above: Performed By: #### L [id number] #### LAB [address] [place] [address] Adonay Hanks M.D. [id number] Basophils/100 WBC (Bld) 0.5 % [facility] Comment on above: Performed By: #### L [id number] #### LAB [address] [place] [address] Adonay Hanks M.D. [id number] Eosinophils (Bld) [#/Vol] 0.06 10*3/uL Normal 0.00-0.50 [facility] Comment on above: Performed By: #### L [id number] #### LAB [address] [place] [address] Adonay Hanks M.D. [id number] Eosinophils/100 WBC (Bld) 0.5 % [facility] Comment on above: Performed By: #### L [id number] #### LAB [address] [place] [address] Adonay Hanks M.D. [id number] Erythrocyte distribution width (RBC) [Ratio] 13.6 % Normal 11.6-14.8 [facility] Comment on above: Performed By: #### L [id number] #### LAB [address] [place] [address] Adonay Hanks M.D. [id number] Hematocrit (Bld) [Volume fraction] 41.7 % Normal 36.0-46.0 [facility] Comment on above: Performed By: #### L [id number] #### LAB [address] [place] [address] Adonay Hanks M.D. [id number] Hemoglobin (Bld) [Mass/Vol] 14.2 g/dL Normal 12.0-16.0 [facility] Comment on above: Performed By: #### L [id number] #### LAB [address] [place] [address] Adonay Hanks M.D. [id number] IG ABSOLUTE 0.08 K/mcL Normal 0.00-0.30 [facility] Comment on above: Performed By: #### L [id number] #### LAB [address] [place] [address] Adonay Hanks M.D. [id number] IG PERCENT 0.70 % Normal [facility] Comment on above: Result Comment: The IG parameter is the percentage of metamyelocytes, myelocytes and promyelocytes. An immature granulocyte count (IG) of 1% or more suggests the possibility of infection, an IG count of 3% is very likely related to an infection. Performed By: #### L [id number] #### LAB [address] [place] [address] Adonay Hanks M.D. [id number] Lymphocytes (Bld) [#/Vol] 1.61 10*3/uL Normal 0.90-4.00 [facility] Comment on above: Performed By: #### L [id number] #### LAB [address] [place] [address] Adonay Hanks M.D. [id number] Lymphocytes/100 WBC (Bld) 14.2 % Normal [facility] Comment on above: Performed By: #### L [id number] #### LAB [address] [place] [address] Adonay Hanks M.D. [id number] MCH (RBC) [Entitic mass] 29.5 pg Normal 26.0-34.0 [facility] Comment on above: Performed By: #### L [id number] #### LAB [address] [place] [address] Adonay Hanks M.D. [id number] MCV (RBC) [Entitic vol] 86.7 fL Normal 80.0-100.0 [facility] Comment on above: Performed By: #### L [id number] #### LAB [address] [place] [address] Adonay Hanks M.D. [id number] MEAN CORPUSCULAR HEMOGLOBIN CONC 34.1 g/dL Normal 31.0-37.0 [facility] Comment on above: Performed By: #### L [id number] #### LAB [address] [place] [address] Adonay Hanks M.D. [id number] Monocytes (Bld) [#/Vol] 0.70 10*3/uL Normal 0.30-0.90 [facility] Comment on above: Performed By: #### L [id number] #### LAB [address] [place] [address] Adonay Hanks M.D. [id number] Monocytes/100 WBC (Bld) 6.2 % Normal [facility] Comment on above: Performed By: #### L [id number] #### LAB [address] [place] [address] Adonay Hanks M.D. [id number] NEUTROPHILS ABSOLUTE COUNT 8.82 K/mcL High 1.70-7.00 [facility] Comment on above: Performed By: #### L SY3456 #### LAB [address] [place] [address] Adonay Hanks M.D. [id number] Neutrophils/100 WBC (Bld) 77.9 % Normal [facility] Comment on above: Performed By: #### L [id number] #### LAB [address] [place] [address] Adonay Hanks M.D. [id number] Platelet mean volume (Bld) [Entitic vol] 9.5 fL Normal 9.4-12.4 [facility] Comment on above: Performed By: #### L AD0228 #### LAB [address] [place], [place] [address] Adonay Hanks M.D. [id number] Platelets (Bld) [#/Vol] 199 10*3/uL Normal 150-400 [facility] Comment on above: Performed By: #### L [id number] #### [facility] LAB [address] [place], [place] [address] Adonay Hanks M.D. [id number] RBC (Bld) [#/Vol] 4.81 10*6/uL Normal 4.00-5.20 [facility] Comment on above: Performed By: #### L [id number] #### [facility] LAB [address] [place] [address] Adonay Hanks M.D. [id number] WBC (Bld) [#/Vol] 11.33 10*3/uL High 4.50-11.00 [facility] Comment on above: Performed By: #### L [id number] #### LAB [address] [place] [address] Adonay Hanks M.D. [id number] CT HEAD OR BRAIN WITHOUT CON TRASTon [...] base intact. No skull lesion. Nasopharynx normal. [employer] Control [employer] spaces are normal. Prior cataract surgery. [...] 17, 2024 3:18:40 PM EDT Transcribed by: CIRSTINA DUARTE on ThuFeb 17, 2024 3:47:31 PM EDT Finalized by: ANDRE LYLES on ThuFeb 17, 2024 4:19:[address] [facility] Comment on above: Order Comment: Injur y/Trauma or Illness?:Illness/OtherHow long have you had these symptoms (acute/chronic)?:AcuteReason for exam?:headache, elevated bpType of Exam?:InitialAdditional signs and symptoms?:. ED Prov Noteon 02-17-2024 ED Prov Note [facility] EMERGENCY DEPARTMENT ATTENDING NOTE: NAME: Hilaria Lyons CSN: [id number] 73 y.o. PCP: No, Physician History: Chief [...] Dx E11.65 . ALL: Allergies Allergen Reactions [place] Hives Poison [place]onda Extract Poison [place] Extract Unknown Penicillins GI Intolerance Physical Exam: [...] - normal (more content not included)... Normal [facility] TROPONINon 02-17-2024 TROPONIN T DELTA CHANGE INTERPRETATION Probable non-acute cardiac injury or late presentation of acute injury. Normal [facility] Comment on above: Performed By: #### 4 0182 #### LAB [address] [place], [place] [address] Adonay Hanks M.D. [id number] TROPONIN T DELTA DIFFERENCE -3 ng/L Normal < = -/+ [address] [facility] Comment on above: Performed By: #### 4 6608 #### LAB [address] [place] [address] Adonay Hanks M.D. [id number] TROPONIN T NG/L 15 ng/L Off scale high <=14 [facility] Comment on above: Performed By: #### 4 6608 #### LAB [address] [place] [address] Adonay Hanks M.D. [id number] BASELINE TROPONIN T NG/L 18 ng/L Off scale high <=14 [facility] Comment on above: Performed By: #### 4 6608 #### LAB [address] [place] [address] Adonay Hanks M.D. [id number] TROPONIN T INTERPRETATION Possible acute cardiac injury. Normal [facility] Comment on above: Performed By: #### 4 6608 #### LAB [address] [place] [address] Adonay Hanks M.D. [id number] URINALYSISon 02-17-2024 BACTERIA, URINE None Seen Normal None Seen [facility] Comment on above: Order Comment: Micro scopic examination is performed on all urinalysis samples and only positive findings are reported. The test for blood on the chemical analytic portion of urinalysis may also be positive due to hemoglobinuria and myoglobinuria and if red blood cells are present they are quantified by microscopic examination. Performed By: #### 4 6625 #### LAB [address] [place] [address] Adonay Hanks M.D. [id number] BILIRUBIN, URINE Negative Normal Negative [facility] Comment on above: Order Comment: Micro scopic examination is performed on all urinalysis samples and only positive findings are reported. The test for blood on the chemical analytic portion of urinalysis may also be positive due to hemoglobinuria and myoglobinuria and if red blood cells are present they are quantified by microscopic examination. Performed By: #### 4 6625 #### LAB [address] [place] [address] Adonay Hanks M.D. [id number] BLOOD, URINE Negative Normal Negative [facility] [facility] Comment on above: Order Comment: Micro scopic examination is performed on all urinalysis samples and only positive findings are reported. The test for blood on the chemical analytic portion of urinalysis may also be positive due to hemoglobinuria and myoglobinuria and if red blood cells are present they are quantified by microscopic examination. Performed By: #### 4 [id number] #### LAB [address] [address] Adonay Hanks M.D. [id number] Clarity (U) Clear Normal Clear [facility] Comment on above: Order Comment: Micro scopic examination is performed on all urinalysis samples and only positive findings are reported. The test for blood on the chemical analytic portion of urinalysis may also be positive due to hemoglobinuria and myoglobinuria and if red blood cells are present they are quantified by microscopic examination. Performed By: #### 4 [id number] #### LAB [address] [address] Adonay Hanks M.D. [id number] Color (U) Yellow Normal Colorless, Yellow [facility] Comment on above: Order Comment: Micro scopic examination is performed on all urinalysis samples and only positive findings are reported. The test for blood on the chemical analytic portion of urinalysis may also be positive due to hemoglobinuria and myoglobinuria and if red blood cells are present they are quantified by microscopic examination. Performed By: #### 4 [id number] #### LAB [address] [address] Adonay Hanks M.D. [id number] Glucose Ql (U) Negative Normal Negative [facility] Comment on above: Order Comment: Micro scopic examination is performed on all urinalysis samples and only positive findings are reported. The test for blood on the chemical analytic portion of urinalysis may also be positive due to hemoglobinuria and myoglobinuria and if red blood cells are present they are quantified by microscopic examination. Performed By: #### 4 [id number] #### LAB [address] [place], [place] [address] Adonay Hanks M.D. [id number] Hyaline casts LM Ql (Urine sed) 6-10 Abnormal 0-2 [facility] Comment on above: Order Comment: Micro scopic examination is performed on all urinalysis samples and only positive findings are reported. The test for blood on the chemical analytic portion of urinalysis may also be positive due to hemoglobinuria and myoglobinuria and if red blood cells are present they are quantified by microscopic examination. Performed By: #### 4 [id number] #### LAB [address] [address] Adonay Hanks M.D. [id number] Ketones Ql (U) Negative Normal Negative [facility] Comment on above: Order Comment: Micro scopic examination is performed on all urinalysis samples and only positive findings are reported. The test for blood on the chemical analytic portion of urinalysis may also be positive due to hemoglobinuria and myoglobinuria and if red blood cells are present they are quantified by microscopic examination. Performed By: #### 4 [id number] #### LAB [address] [address] Adonay Hanks M.D. [id number] Leukocyte esterase Test strip Ql (U) Trace Abnormal Negative [facility] Comment on above: Order Comment: Micro scopic examination is performed on all urinalysis samples and only positive findings are reported. The test for blood on the chemical analytic portion of urinalysis may also be positive due to hemoglobinuria and myoglobinuria and if red blood cells are present they are quantified by microscopic examination. Performed By: #### 4 [id number] #### LAB [address] [address] Adonay Hanks M.D. [id number] MUCUS, URINE Rare Normal None Seen, Rare [facility] Comment on above: Order Comment: Micro scopic examination is performed on all urinalysis samples and only positive findings are reported. The test for blood on the chemical analytic portion of urinalysis may also be positive due to hemoglobinuria and myoglobinuria and if red blood cells are present they are quantified by microscopic examination. Performed By: #### 4 [id number] #### LAB [address] [address] Adonay Hanks M.D. [id number] NITRITE, URINE Negative Normal Negative [facility] Comment on above: Order Comment: Micro scopic examination is performed on all urinalysis samples and only positive findings are reported. The test for blood on the chemical analytic portion of urinalysis may also be positive due to hemoglobinuria and myoglobinuria and if red blood cells are present they are quantified by microscopic examination. Performed By: #### 4 [id number] #### LAB [address] [address] Adonay Hanks M.D. [id number] pH (U) 6.0 [pH] Normal 5.0-7.0 [facility] Comment on above: Order Comment: Micro scopic examination is performed on all urinalysis samples and only positive findings are reported. The test for blood on the chemical analytic portion of urinalysis may also be positive due to hemoglobinuria and myoglobinuria and if red blood cells are present they are quantified by microscopic examination. Performed By: #### 4 [id number] #### LAB [address] [address] Adonay Hanks M.D. [id number] PROTEIN, URINE Negative Normal Negative [facility] Comment on above: Order Comment: Micro scopic examination is performed on all urinalysis samples and only positive findings are reported. The test for blood on the chemical analytic portion of urinalysis may also be positive due to hemoglobinuria and myoglobinuria and if red blood cells are present they are quantified by microscopic examination. Performed By: #### 4 6625 #### LAB [address] [address] Adonay Hanks M.D. [id number] RBC, URINE < Normal 0-3 [facility] Comment on above: Order Comment: Micro scopic examination is performed on all urinalysis samples and only positive findings are reported. The test for blood on the chemical analytic portion of urinalysis may also be positive due to hemoglobinuria and myoglobinuria and if red blood cells are present they are quantified by microscopic examination. Performed By: #### 4 [id number] #### LAB [address] [place], [place] [address] Adonay Hanks M.D. [id number] Specific gravity (U) [Rel density] 1.011 Normal 1.005-1.025 [facility] Comment on above: Order Comment: Micro scopic examination is performed on all urinalysis samples and only positive findings are reported. The test for blood on the chemical analytic portion of urinalysis may also be positive due to hemoglobinuria and myoglobinuria and if red blood cells are present they are quantified by microscopic examination. Performed By: #### 4 [id number] #### LAB [address] [place], [place] [address] Adonay Hanks M.D. [id number] SQUAMOUS EPITHELIAL < Normal 0-4 [facility] Comment on above: Order Comment: Micro scopic examination is performed on all urinalysis samples and only positive findings are reported. The test for blood on the chemical analytic portion of urinalysis may also be positive due to hemoglobinuria and myoglobinuria and if red blood cells are present they are quantified by microscopic examination. Performed By: #### 4 [id number] #### LAB [address] [place], [place] [address] Adonay Hanks M.D. [id number] UROBILINOGEN, URINE <2.0 Normal <2.0 [facility] Comment on above: Order Comment: Micro scopic examination is performed on all urinalysis samples and only positive findings are reported. The test for blood on the chemical analytic portion of urinalysis may also be positive due to hemoglobinuria and myoglobinuria and if red blood cells are present they are quantified by microscopic examination. Performed By: #### 4 6625 #### [facility] [address] [place], [place] [address] Adonay Hanks M.D. [id number] WBC LM.HPF (Urine sed) [#/Area] 1 /[HPF] Normal 0-5 [facility] Comment on above: Order Comment: Micro scopic examination is performed on all urinalysis samples and only positive findings are reported. The test for blood on the chemical analytic portion of urinalysis may also be positive due to hemoglobinuria and myoglobinuria and if red blood cells are present they are quantified by microscopic examination. Performed By: #### 4 [id number] #### LAB [address] [address] Adonay Hanks M.D. [id number] COMPREHENSIVE METABOLIC PANE Remy 02-12-2024 Albumin [Mass/Vol] 4.2 g/dL Normal 3.2-5.2 [facility] Comment on above: Order Comment: [facility] has implemented the eGFR calculation approach that does not have a coefficient for race that conforms to the NKF-ASN Task Force Recommendations. Performed By: #### 4 [id number] #### LAB [address] [address] Adonay Hanks M.D. [id number] ALP [Catalytic activity/Vol] 69 U/L Normal 40-150 [facility] Comment on above: Order Comment: [facility] has implemented the eGFR calculation approach that does not have a coefficient for race that conforms to the NKF-ASN Task Force Recommendations. Performed By: #### 4 [id number] #### LAB [address] [address] Adonay Hanks M.D. [id number] ALT [Catalytic activity/Vol] 12 U/L Normal 0-35 U/L [facility] Comment on above: Order Comment: [facility] has implemented the eGFR calculation approach that does not have a coefficient for race that conforms to the NKF-ASN Task Force Recommendations. Performed By: #### 4 [id number] #### LAB [address] [address] Adonay Hanks M.D. [id number] Anion gap [Moles/Vol] 14 mmol/L Normal 10-20 [facility] Comment on above: Order Comment: [facility] has implemented the eGFR calculation approach that does not have a coefficient for race that conforms to the NKF-ASN Task Force Recommendations. Performed By: #### 4 [id number] #### LAB [address] [address] Adonay Hanks M.D. [id number] AST [Catalytic activity/Vol] 19 U/L Normal 0-35 U/L [facility] Comment on above: Order Comment: [facility] has implemented the eGFR calculation approach that does not have a coefficient for race that conforms to the NKF-ASN Task Force Recommendations. Performed By: #### 4 [id number] #### LAB [address] [address] Adonay Hanks M.D. [id number] Bilirubin [Mass/Vol] 0.8 mg/dL Normal 0.0-1.3 [facility] Comment on above: Order Comment: [facility] has implemented the eGFR calculation approach that does not have a coefficient for race that conforms to the NKF-ASN Task Force Recommendations. Performed By: #### 4 6126 #### LAB [address] [address] Adonay Hanks M.D. [id number] Calcium [Mass/Vol] 9.6 mg/dL Normal 8.4-10.2 [facility] Comment on above: Order Comment: [facility] has implemented the eGFR calculation approach that does not have a coefficient for race that conforms to the NKF-ASN Task Force Recommendations. Performed By: #### 4 6126 #### LAB [address] [address] Adonay Hanks M.D. [id number] Chloride [Moles/Vol] 103 mmol/L Normal 98-108 [facility] Comment on above: Order Comment: [facility] has implemented the eGFR calculation approach that does not have a coefficient for race that conforms to the NKF-ASN Task Force Recommendations. Performed By: #### 4 6126 #### LAB [address] [address] Adonay Hanks M.D. [id number] Creatinine [Mass/Vol] 0.57 mg/dL Low 0.60-1.10 [facility] Comment on above: Order Comment: [facility] has implemented the eGFR calculation approach that does not have a coefficient for race that conforms to the NKF-ASN Task Force Recommendations. Performed By: #### 4 6198 #### LAB [address] [address] Adonay Hanks M.D. [id number] EGFR 97 mL/min/1.73 m2 Normal >=60 [facility] Comment on above: Order Comment: [facility] has implemented the eGFR calculation approach that does not have a coefficient for race that conforms to the NKF-ASN Task Force Recommendations. Result Comment: Yessica mated GFR was calculated using the 2020 CKD-EPI creatinine equation. Performed By: #### 4 [id number] #### LAB [address] [address] Adonay Hanks M.D. [id number] Glucose [Mass/Vol] 159 mg/dL High 65-99 [facility] Comment on above: Order Comment: [facility] has implemented the eGFR calculation approach that does not have a coefficient for race that conforms to the NKF-ASN Task Force Recommendations. Performed By: #### 4 [id number] #### LAB [address] [address] Adonay Hanks M.D. [id number] HCO3 (Bld) [Moles/Vol] 27 mmol/L Normal 21-32 [facility] Comment on above: Order Comment: [facility] has implemented the eGFR calculation approach that does not have a coefficient for race that conforms to the NKF-ASN Task Force Recommendations. Performed By: #### 4 6126 #### LAB [address] [address] Adonay Hanks M.D. [id number] Potassium [Moles/Vol] 3.6 mmol/L Normal 3.5-5.1 [facility] Comment on above: Order Comment: [facility] has implemented the eGFR calculation approach that does not have a coefficient for race that conforms to the NKF-ASN Task Force Recommendations. Performed By: #### 4 6126 #### LAB [address] [address] Adonay Hanks M.D. [id number] Protein [Mass/Vol] 7.0 g/dL Normal 6.0-8.0 [facility] Comment on above: Order Comment: [facility] has implemented the eGFR calculation approach that does not have a coefficient for race that conforms to the NKF-ASN Task Force Recommendations. Performed By: #### 4 6126 #### LAB [address] [address] Adonay Hanks M.D. [id number] Sodium [Moles/Vol] 140 mmol/L Normal 135-145 [facility] Comment on above: Order Comment: [facility] has implemented the eGFR calculation approach that does not have a coefficient for race that conforms to the NKF-ASN Task Force Recommendations. Performed By: #### 4 6126 #### LAB [address] [address] Adonay Hanks M.D. [id number] Urea nitrogen [Mass/Vol] 19 mg/dL Normal 8-25 [facility] Comment on above: Order Comment: [facility] has implemented the eGFR calculation approach that does not have a coefficient for race that conforms to the NKF-ASN Task Force Recommendations. Performed By: #### 4 [id number] #### LAB [address] [address] Adonay Hanks M.D. [id number] Urea nitrogen/Creatinine [Mass ratio] 33.3 mg/mg High 10.0-20.0 [facility] Comment on above: Order Comment: [facility] has implemented the eGFR calculation approach that does not have a coefficient for race that conforms to the NKF-ASN Task Force Recommendations. Performed By: #### 4 [id number] #### [facility] [address] [place], [place] [address] Adonay Hanks M.D. [id number] HEMOGLOBIN A1Con 02-12-2024 Glucose [Mass/Vol] 131 mg/dL High 74-114 [facility] Comment on above: Performed By: #### 4 8202 #### [facility] [address] [address] Adonay Hanks M.D. [id number] HbA1c (Bld) [Mass fraction] 6.2 % High 4.2-5.6 [facility] Comment on above: Performed By: #### 4 8202 #### LAB [address] [address] Adonay Hanks M.D. [id number] T4, FREEon 02-12-2024 Free T4 [Mass/Vol] 1.4 ng/dL Normal 0.7-1.7 [facility] Comment on above: Performed By: #### 4 6567 #### LAB [address] [address] Adonay Hanks M.D. [id number] TSHon 02-12-2024 TSH Qn 1.81 m[IU]/L Normal 0.27-4.20 [facility] Comment on above: Performed By: #### 4 6613 #### LAB [address] [address] Adonay Hanks M.D. [id number] CBC Auto Differentialon 05-16 Basophils (Bld) [#/Vol] 0.06 10*3/uL [facility] Basophils/100 WBC (Bld) 0.6 % [facility] Eosinophils (Bld) [#/Vol] 0.09 10*3/uL [facility] Eosinophils/100 WBC (Bld) 0.9 % [facility] Erythrocyte distribution width (RBC) [Entitic vol] 12.7 % 11.6 - 14.8 % [facility] Hematocrit (Bld) [Volume fraction] 46.0 % 36.0 - 46.0 % [facility] Hemoglobin (Bld) [Mass/Vol] 15.1 g/dL 12.0 - 16.0 g/dL [facility] Immature granulocytes (Bld) [#/Vol] 0.07 10*3/uL [facility] Immature granulocytes/100 WBC (Bld) 0.70 % [facility] Comment on above: The IG parameter is the percentage of metamyelocytes, myelocytes and promyelocytes. An immature granulocyte count (IG) of 1% or more suggests the possibility of infection, an IG count of 3% is very likely related to an infection. Lymphocytes (Bld) [#/Vol] 3.49 10*3/uL [facility] Lymphocytes/100 WBC (Bld) 34.4 % [facility] MCH (RBC) [Entitic mass] 29.0 pg 26.0 - 34.0 pg [facility] MCHC (RBC) [Mass/Vol] 32.8 g/dL 31.0 - 37.0 g/dL [facility] MCV (RBC) [Entitic vol] 88.5 fL 80.0 - 100.0 fL [facility] Monocytes (Bld) [#/Vol] 0.74 10*3/uL [facility] Monocytes/100 WBC (Bld) 7.3 % [facility] Neutrophils (Bld) [#/Vol] 5.69 10*3/uL [facility] Neutrophils/100 WBC (Bld) 56.1 % [facility] Nucleated RBC (Bld) [#/Vol] 0.00 10*3/uL [facility] Nucleated RBC/100 WBC (Bld) [Ratio] 0.0 % [facility] Platelet mean volume (Bld) [Entitic vol] 9.9 fL 9.4 - 12.4 fL [facility] Platelets (Bld) [#/Vol] 187 10*3/uL [facility] RBC (Bld) [#/Vol] 5.20 10*6/uL [facility] ealth WBC (Bld) [#/Vol] 10.14 10*3/uL [facility] Comprehensive metabolic 2000 panelOrdered By: John Grijalva on 06-08-2022 Albumin [Mass/Vol] 2.7 g/dL Low 3.2 - 5.2 g/dL [facility] ALP [Catalytic activity/Vol] 63 U/L 40 - 150 U/L [facility] ALT [Catalytic activity/Vol] 18 U/L 14 - 65 U/L [facility] Anion gap [Moles/Vol] 13 mmol/L 10 - 20 mmol/L [facility] AST [Catalytic activity/Vol] 20 U/L 0 - 45 U/L [facility] Bilirubin [Mass/Vol] 0.6 mg/dL 0.0 - 1 .3 mg/dL [facility] Calcium [Mass/Vol] 8.8 mg/dL 8.4 - 10. 2 mg/dL [facility] Chloride [Moles/Vol] 110 mmol/L High 98 - 10 8 mmol/L [facility] Creatinine [Mass/Vol] 0.48 mg/dL Low 0.60 - 1.20 mg/dL [facility] GFR/1.73 sq M.predicted CKD-EPI (S/P/Bld) [Vol rate/Area] 101 - PINF [facility] Comment on above: Estimated GFR was ca lculated using the 2020 CKD-EPI creatinine equation. Glucose [Mass/Vol] 76 mg/dL 65 - 99 mg/dL [facility] HCO3 [Moles/Vol] 23 mmol/L 21 - 32 mmol/L [facility] Interpretation and review of laboratory results Abnormal [facility] Potassium [Moles/Vol] 3.7 mmol/L 3.5 - 5.1 mmol/L [facility] Protein [Mass/Vol] 5.2 g/dL Low 6.0 - 8.0 g/dL [facility] Sodium [Moles/Vol] 142 mmol/L 135 - 145 mmol/L [facility] Urea nitrogen [Mass/Vol] 11 mg/dL 8 - 25 mg/dL [facility] Urea nitrogen/Creatinine [Mass ratio] 22.9 mg/mg High 10.0 - 20.0 [facility] has implemented the eGFR calculation approach that does not have a coefficient for race that conforms to the NKF-ASN Task Force Recommendations. [facility] Glucose (Bld) [Mass/Vol]on 1 08-09-2021 Glucose [Mass/Vol] 200 mg/dL High 65 - 99 mg/dL [facility] Interpretation and review of laboratory results Abnormal [facility] Glucose [Mass/Vol] 103 mg/dL High 65 - 99 mg/dL [facility] Interpretation and review of laboratory results Abnormal [facility] Magnesium Levelon 06-08-2022 Magnesium [Mass/Vol] 2.0 mg/dL 1.6 - 2 .4 mg/dL [facility] Magnesium [Mass/Vol]on 06-08 Interpretation and review of laboratory results Normal [facility] Basic metabolic 2000 panelon 06-07-2022 Anion gap [Moles/Vol] 14 mmol/L 10 - 20 mmol/L [facility] Calcium [Mass/Vol] 9.2 mg/dL 8.4 - 10. 2 mg/dL [facility] Chloride [Moles/Vol] 102 mmol/L 98 - 10 8 mmol/L [facility] Creatinine [Mass/Vol] 0.58 mg/dL Low 0.60 - 1.20 mg/dL [facility] GFR/1.73 sq M.predicted CKD-EPI (S/P/Bld) [Vol rate/Area] 97 - PINF [facility] Comment on above: Estimated GFR was ca lculated using the 2020 CKD-EPI creatinine equation. Glucose [Mass/Vol] 344 mg/dL High 65 - 99 mg/dL [facility] HCO3 [Moles/Vol] 26 mmol/L 21 - 32 mmol/L [facility] Interpretation and review of laboratory results Abnormal [facility] Potassium [Moles/Vol] 3.9 mmol/L 3.5 - 5.1 mmol/L [facility] Sodium [Moles/Vol] 138 mmol/L 135 - 145 mmol/L [facility] Urea nitrogen [Mass/Vol] 12 mg/dL 8 - 25 mg/dL [facility] Urea nitrogen/Creatinine [Mass ratio] 20.7 mg/mg High 10.0 - 20.0 [facility] y Services has implemented the eGFR calculation approach that does not have a coefficient for race that conforms to the NKF-ASN Task Force Recommendations. [facility] Anion gap [Moles/Vol] 8 mmol/L Low 10 - 20 mmol/L [facility] Calcium [Mass/Vol] 9.1 mg/dL 8.4 - 10. 2 mg/dL [facility] Chloride [Moles/Vol] 105 mmol/L 98 - 10 8 mmol/L [facility] Creatinine [Mass/Vol] 0.52 mg/dL Low 0.60 - 1.20 mg/dL [facility] GFR/1.73 sq M.predicted CKD-EPI (S/P/Bld) [Vol rate/Area] 99 - PINF [facility] Comment on above: Estimated GFR was ca lculated using the 2020 CKD-EPI creatinine equation. Glucose [Mass/Vol] 104 mg/dL High 65 - 99 mg/dL [facility] HCO3 [Moles/Vol] 32 mmol/L 21 - 32 mmol/L [facility] Interpretation and review of laboratory results Abnormal [facility] Potassium [Moles/Vol] 3.5 mmol/L 3.5 - 5.1 mmol/L [facility] Sodium [Moles/Vol] 141 mmol/L 135 - 145 mmol/L [facility] Urea nitrogen [Mass/Vol] 12 mg/dL 8 - 25 mg/dL [facility] Urea nitrogen/Creatinine [Mass ratio] 23.1 mg/mg High 10.0 - 20.0 [facility] y Services has implemented the eGFR calculation approach that does not have a coefficient for race that conforms to the NKF-ASN Task Force Recommendations. [facility] Anion gap [Moles/Vol] 10 mmol/L 10 - 20 mmol/L [facility] Calcium [Mass/Vol] 9.2 mg/dL 8.4 - 10. 2 mg/dL [facility] Chloride [Moles/Vol] 104 mmol/L 98 - 10 8 mmol/L [facility] Creatinine [Mass/Vol] 0.58 mg/dL Low 0.60 - 1.20 mg/dL [facility] GFR/1.73 sq M.predicted CKD-EPI (S/P/Bld) [Vol rate/Area] 97 - PINF [facility] Comment on above: Estimated GFR was ca lculated using the 2020 CKD-EPI creatinine equation. Glucose [Mass/Vol] 224 mg/dL High 65 - 99 mg/dL [facility] HCO3 [Moles/Vol] 28 mmol/L 21 - 32 mmol/L [facility] Interpretation and review of laboratory results Abnormal [facility] Potassium [Moles/Vol] 4.1 mmol/L 3.5 - 5.1 mmol/L [facility] Sodium [Moles/Vol] 138 mmol/L 135 - 145 mmol/L [facility] Urea nitrogen [Mass/Vol] 15 mg/dL 8 - 25 mg/dL [facility] Urea nitrogen/Creatinine [Mass ratio] 25.9 mg/mg High 10.0 - 20.[address] [facility] has implemented the eGFR calculation approach that does not have a coefficient for race that conforms to the NKF-ASN Task Force Recommendations. [facility] Anion gap [Moles/Vol] 13 mmol/L 10 - 20 mmol/L [facility] Calcium [Mass/Vol] 9.3 mg/dL 8.4 - 10. 2 mg/dL [facility] Chloride [Moles/Vol] 102 mmol/L 98 - 10 8 mmol/L [facility] Creatinine [Mass/Vol] 0.73 mg/dL 0.60 - 1.20 mg/dL [facility] GFR/1.73 sq M.predicted CKD-EPI (S/P/Bld) [Vol rate/Area] 88 - PINF [facility] Comment on above: Estimated GFR was ca lculated using the 2020 CKD-EPI creatinine equation. Glucose [Mass/Vol] 394 mg/dL High 65 - 99 mg/dL [facility] HCO3 [Moles/Vol] 27 mmol/L 21 - 32 mmol/L [facility] Interpretation and review of laboratory results Abnormal [facility] Potassium [Moles/Vol] 3.5 mmol/L 3.5 - 5.1 mmol/L [facility] Sodium [Moles/Vol] 138 mmol/L 135 - 145 mmol/L [facility] Urea nitrogen [Mass/Vol] 14 mg/dL 8 - 25 mg/dL [facility] Urea nitrogen/Creatinine [Mass ratio] 19.2 mg/mg 10.0 - 20.0 [facility] Services has implemented the eGFR calculation approach that does not have a coefficient for race that conforms to the NKF-ASN Task Force Recommendations. [facility] Beta hydroxybutyrate [Moles/ Vol]on 06-07-2022 Interpretation and review of laboratory results Abnormal [facility] Interpretation and review of laboratory results Normal [facility] Interpretation and review of laboratory results Normal [facility] Interpretation and review of laboratory results Normal [facility] Beta-Hydroxybutyrateon 06-07 Beta hydroxybutyrate [Moles/Vol] 0.9 mmol/L High 0.0 - 0.3 mmol/L [facility] Beta hydroxybutyrate [Moles/Vol] mmol/L 0.0 - 0.3 mmol/L [facility] Beta hydroxybutyrate [Moles/Vol] mmol/L 0.0 - 0.3 mmol/L [facility] Beta hydroxybutyrate [Moles/Vol] 0.1 mmol/L 0.0 - 0.3 mmol/L [facility] CBC Auto Differentialon 05-16 Basophils (Bld) [#/Vol] 0.03 10*3/uL [facility] Basophils/100 WBC (Bld) 0.3 % [facility] Eosinophils (Bld) [#/Vol] 0.07 10*3/uL [facility] Eosinophils/100 WBC (Bld) 0.6 % [facility] Erythrocyte distribution width (RBC) [Entitic vol] 12.5 % 11.6 - 14.8 % [facility] Hematocrit (Bld) [Volume fraction] 43.3 % 36.0 - 46.0 % [facility] Hemoglobin (Bld) [Mass/Vol] 14.7 g/dL 12.0 - 16.0 g/dL [facility] Immature granulocytes (Bld) [#/Vol] 0.07 10*3/uL [facility] Immature granulocytes/100 WBC (Bld) 0.60 % [facility] Comment on above: The IG parameter is the percentage of metamyelocytes, myelocytes and promyelocytes. An immature granulocyte count (IG) of 1% or more suggests the possibility of infection, an IG count of 3% is very likely related to an infection. Interpretation and review of laboratory results Abnormal [facility] Lymphocytes (Bld) [#/Vol] 2.47 10*3/uL [facility] Lymphocytes/100 WBC (Bld) 22.7 % [facility] MCH (RBC) [Entitic mass] 29.2 pg 26.0 - 34.0 pg [facility] MCHC (RBC) [Mass/Vol] 33.9 g/dL 31.0 - 37.0 g/dL [facility] MCV (RBC) [Entitic vol] 85.9 fL 80.0 - 100.0 fL [facility] Monocytes (Bld) [#/Vol] 0.73 10*3/uL [facility] Monocytes/100 WBC (Bld) 6.7 % [facility] Neutrophils (Bld) [#/Vol] 7.49 10*3/uL High [facility] Neutrophils/100 WBC (Bld) 69.1 % [facility] Nucleated RBC (Bld) [#/Vol] 0.00 10*3/uL [facility] Nucleated RBC/100 WBC (Bld) [Ratio] 0.0 % [facility] Platelet mean volume (Bld) [Entitic vol] 10.5 fL 9.4 - 12.4 fL [facility] Platelets (Bld) [#/Vol] 182 10*3/uL [facility] RBC (Bld) [#/Vol] 5.04 10*6/uL [facility] ealth WBC (Bld) [#/Vol] 10.86 10*3/uL [facility] Comprehensive metabolic 2000 panelon 06-07-2022 Albumin [Mass/Vol] 2.9 g/dL Low 3.2 - 5.2 g/dL [facility] ALP [Catalytic activity/Vol] 69 U/L 40 - 150 U/L [facility] ALT [Catalytic activity/Vol] 20 U/L 14 - 65 U/L [facility] Anion gap [Moles/Vol] 10 mmol/L 10 - 20 mmol/L [facility] AST [Catalytic activity/Vol] 17 U/L 0 - 45 U/L [facility] Bilirubin [Mass/Vol] 0.5 mg/dL 0.0 - 1 .3 mg/dL [facility] Calcium [Mass/Vol] 9.2 mg/dL 8.4 - 10. 2 mg/dL [facility] Chloride [Moles/Vol] 104 mmol/L 98 - 10 8 mmol/L [facility] Creatinine [Mass/Vol] 0.58 mg/dL Low 0.60 - 1.20 mg/dL [facility] GFR/1.73 sq M.predicted CKD-EPI (S/P/Bld) [Vol rate/Area] 97 - PINF [facility] Comment on above: Estimated GFR was ca lculated using the 2020 CKD-EPI creatinine equation. Glucose [Mass/Vol] 224 mg/dL High 65 - 99 mg/dL [facility] HCO3 [Moles/Vol] 28 mmol/L 21 - 32 mmol/L [facility] Interpretation and review of laboratory results Abnormal [facility] Potassium [Moles/Vol] 4.1 mmol/L 3.5 - 5.1 mmol/L [facility] Protein [Mass/Vol] 5.5 g/dL Low 6.0 - 8.0 g/dL [facility] Sodium [Moles/Vol] 138 mmol/L 135 - 145 mmol/L [facility] Urea nitrogen [Mass/Vol] 15 mg/dL 8 - 25 mg/dL [facility] Urea nitrogen/Creatinine [Mass ratio] 25.9 mg/mg High 10.0 - 20.0 [facility] has implemented the eGFR calculation approach that does not have a coefficient for race that conforms to the NKF-ASN Task Force Recommendations. [facility] Glucose (Bld) [Mass/Vol]on 08-08-2021 Glucose [Mass/Vol] 120 mg/dL High 65 - 99 mg/dL [facility] Interpretation and review of laboratory results Abnormal [facility] Glucose [Mass/Vol] 169 mg/dL High 65 - 99 mg/dL [facility] Interpretation and review of laboratory results Abnormal [facility] Glucose [Mass/Vol] 149 mg/dL High 65 - 99 mg/dL [facility] Interpretation and review of laboratory results Abnormal [facility] Glucose [Mass/Vol] 203 mg/dL High 65 - 99 mg/dL [facility] Interpretation and review of laboratory results Abnormal [facility] Glucose [Mass/Vol] 266 mg/dL High 65 - 99 mg/dL [facility] Interpretation and review of laboratory results Abnormal [facility] Glucose [Mass/Vol] 344 mg/dL High 65 - 99 mg/dL [facility] Interpretation and review of laboratory results Abnormal [facility] Glucose [Mass/Vol] 283 mg/dL High 65 - 99 mg/dL [facility] Interpretation and review of laboratory results Abnormal [facility] Glucose [Mass/Vol] 236 mg/dL High 65 - 99 mg/dL [facility] Interpretation and review of laboratory results Abnormal [facility] Glucose [Mass/Vol] 138 mg/dL High 65 - 99 mg/dL [facility] Interpretation and review of laboratory results Abnormal [facility] Glucose [Mass/Vol] 138 mg/dL High 65 - 99 mg/dL [facility] Interpretation and review of laboratory results Abnormal [facility] Glucose [Mass/Vol] 204 mg/dL High 65 - 99 mg/dL [facility] Interpretation and review of laboratory results Abnormal [facility] Glucose [Mass/Vol] 253 mg/dL High 65 - 99 mg/dL [facility] Interpretation and review of laboratory results Abnormal [facility] Glucose [Mass/Vol] 221 mg/dL High 65 - 99 mg/dL [facility] Interpretation and review of laboratory results Abnormal [facility] Glucose [Mass/Vol] 182 mg/dL High 65 - 99 mg/dL [facility] Interpretation and review of laboratory results Abnormal [facility] Glucose [Mass/Vol] 230 mg/dL High 65 - 99 mg/dL [facility] Interpretation and review of laboratory results Abnormal [facility] Glucose [Mass/Vol] 308 mg/dL High 65 - 99 mg/dL [facility] Interpretation and review of laboratory results Abnormal [facility] HbA1c (Bld) [Mass fraction]O rdered By: Lolis Hope on 06-07-2022 Average glucose Estimated from glycated hemoglobin (Bld) [Mass/Vol] 346 mg/dL High 68 - 114 mg/dL [facility] Interpretation and review of laboratory results Abnormal [facility] Normal: 4.0% - 5.6% Increased risk for diabetes: 5.7% - 6.4% Diabetes: >= 6.5% Pediatrics: No established reference range Estimated average glucose: 68-114 mg/dL [facility] Hemoglobin [id number] By: Dalia Hope on 06-07-2022 HbA1c (Bld) [Mass fraction] 13.7 % High 4.0 - 5.6 % [facility] Lipid 1996 panelon 2 Cholesterol [Mass/Vol] 187 mg/dL 100 - 199 mg/dL [facility] Comment on above: National Cholesterol Education Program Guidelines: Cholesterol Desirable: <200 mg/dL Borderline High: 200-239 mg/dL High: greater than or equal to 240 mg/dL Cholesterol in HDL [Mass/Vol] 62 mg/dL 40 - 59 mg/dL [facility] Comment on above: National Cholesterol Education Program Guidelines: HDL Cholesterol Low: <40 mg/dL Near Optimal: 40-59 mg/dL High: greater than or equal to 60 mg/dL Cholesterol in LDL [Mass/Vol] 106 mg/dL 10 - 130 mg/dL [facility] Comment on above: National Cholesterol Education Program Guidelines: LDL Cholesterol Optimal: <100 mg/dL Near Optimal/above Optimal: 100-129 mg/dL Borderline High: 130-159 mg/dL High: 160-189 mg/dL Very High: greater than or equal to 190 mg/dL Cholesterol non HDL [Mass/Vol] 125 mg/dL [facility] Comment on above: National Cholesterol Education Program Guidelines: NON HDL Cholesterol Desirable: <130 mg/dL Borderline High: 130-159 mg/dL High: 160-189 mg/dL Very High: > or = 190 mg/dL Cholesterol.total/Ch olesterol in HDL [Mass ratio] 3.0 {ratio} ratio [facility] Comment on above: Female Cholesterol/H DL Ratio: Average risk: 4.4 1/2 average risk: 3.3 2 x average risk: 7.1 Triglyceride [Mass/Vol] 97 mg/dL 30 - 150 mg/dL [facility] Comment on above: National Cholesterol Education Program Guidelines: Triglyceride Normal: <150 mg/dL Borderline High: 150-199 mg/dL High: 200-499 mg/dL Very High: greater than or equal to 500 mg/dL [facility] MR Brain Without Contraston 06-07-2022 1. No acute ischemia. 2. Left parietal convexity extra-axial dural-based mass likely relating to meningioma detailed above with minimal mass effect on adjacent brain parenchyma without substantial edema. 3. Mild supratentorial white matter change which most commonly relates to sequela of small vessel disease. Workstation ID: [id number] [employer] EXAMINATION: MR BRAIN WITHOUT CONTRAST HISTORY: Neuro [...] replacing lesion suggestive of neoplasm. Orbits: Bilateral [place] ocular lens replacements. Paranasal sinuses: Imaged portions [...] the major intracranial arteries and dural sinuses. Parakey [facility] Reyes Tayloria Radha, DO - 06/07/2022 EXAMINATION: [...] replacing lesion suggestive of neoplasm. Orbits: Bilateral [place] ocular lens replacements. Paranasal sinuses: Imaged portions [...] of small vessel disease. Workstation ID: [id number] [facility] Radiology Study observation (narrative) [facility] MR Brain Without ContrastOrd ered By: Triny Taylor on 06-07-2022 [facility] Work Phone: Magnesium Levelon 06-07-2022 Magnesium [Mass/Vol] 2.1 mg/dL 1.6 - 2 .4 mg/dL [facility] Magnesium [Mass/Vol]on 06-07 Interpretation and review of laboratory results Normal [facility] Obtain venous blood gases an d performon 06-07-2022 [facility] Phosphate [Mass/Vol]on 06-07 Interpretation and review of laboratory results Normal [facility] Interpretation and review of laboratory results Abnormal [facility] Phosphoruson 06-07-2022 Phosphate [Mass/Vol] 2.8 mg/dL 2.8 - 4 .1 mg/dL [facility] Phosphate [Mass/Vol] 2.6 mg/dL Low 2.8 - 4 .1 mg/dL [facility] Basic metabolic 2000 panelOr dered By: Joana Reeves on 06-06-2022 Anion gap [Moles/Vol] 13 mmol/L 10 - 20 mmol/L [facility] Calcium [Mass/Vol] 9.3 mg/dL 8.4 - 10. 2 mg/dL [facility] Chloride [Moles/Vol] 101 mmol/L 98 - 10 8 mmol/L [facility] Creatinine [Mass/Vol] 0.72 mg/dL 0.60 - 1.20 mg/dL [facility] GFR/1.73 sq M.predicted CKD-EPI (S/P/Bld) [Vol rate/Area] 90 - PINF [facility] Comment on above: Estimated GFR was ca lculated using the 2020 CKD-EPI creatinine equation. Glucose [Mass/Vol] 458 mg/dL Critically high 65 - 99 mg/d L [facility] HCO3 [Moles/Vol] 28 mmol/L 21 - 32 mmol/L [facility] Interpretation and review of laboratory results Abnormal [facility] Potassium [Moles/Vol] 3.7 mmol/L 3.5 - 5.1 mmol/L [facility] Sodium [Moles/Vol] 138 mmol/L 135 - 145 mmol/L [facility] Urea nitrogen [Mass/Vol] 15 mg/dL 8 - 25 mg/dL [facility] Urea nitrogen/Creatinine [Mass ratio] 20.8 mg/mg High 10.0 - 20.0 [facility] has implemented the eGFR calculation approach that does not have a coefficient for race that conforms to the NKF-ASN Task Force Recommendations. [facility] Basic metabolic 2000 panelOr dered By: Danelle Plascencia on 06-06-2022 Anion gap [Moles/Vol] 13 mmol/L 10 - 20 mmol/L [facility] Calcium [Mass/Vol] 10.2 mg/dL 8.4 - 10. 2 mg/dL [facility] Chloride [Moles/Vol] 98 mmol/L 98 - 10 8 mmol/L [facility] Creatinine [Mass/Vol] 0.84 mg/dL 0.60 - 1.20 mg/dL [facility] GFR/1.73 sq M.predicted CKD-EPI (S/P/Bld) [Vol rate/Area] 74 - PINF [facility] Comment on above: Estimated GFR was ca lculated using the 2020 CKD-EPI creatinine equation. Glucose [Mass/Vol] 660 mg/dL Critically high 65 - 99 mg/d L [facility] HCO3 [Moles/Vol] 27 mmol/L 21 - 32 mmol/L [facility] Interpretation and review of laboratory results Abnormal [facility] Potassium [Moles/Vol] 4.1 mmol/L 3.5 - 5.1 mmol/L [facility] Sodium [Moles/Vol] 134 mmol/L Low 135 - 145 mmol/L [facility] Urea nitrogen [Mass/Vol] 19 mg/dL 8 - 25 mg/dL [facility] Urea nitrogen/Creatinine [Mass ratio] 22.6 mg/mg High 10.0 - 20.0 [facility] has implemented the eGFR calculation approach that does not have a coefficient for race that conforms to the NKF-ASN Task Force Recommendations. [facility] Beta hydroxybutyrate [Moles/ Vol]on 06-06-2022 Interpretation and review of laboratory results Abnormal [facility] Beta-Hydroxybutyrateon 06-06 Beta hydroxybutyrate [Moles/Vol] 1.0 mmol/L High 0.0 - 0.3 mmol/L [facility] CBC Auto Differentialon 05-16 Basophils (Bld) [#/Vol] 0.04 10*3/uL [facility] Basophils/100 WBC (Bld) 0.4 % [facility] Eosinophils (Bld) [#/Vol] 0.03 10*3/uL [facility] Eosinophils/100 WBC (Bld) 0.3 % [facility] Erythrocyte distribution width (RBC) [Entitic vol] 12.7 % 11.6 - 14.8 % [facility] Hematocrit (Bld) [Volume fraction] 45.1 % 36.0 - 46.0 % [facility] Hemoglobin (Bld) [Mass/Vol] 16.1 g/dL High 12.0 - 16.0 g/dL [facility] Immature granulocytes (Bld) [#/Vol] 0.05 10*3/uL [facility] Immature granulocytes/100 WBC (Bld) 0.50 % [facility] Comment on above: The IG parameter is the percentage of metamyelocytes, myelocytes and promyelocytes. An immature granulocyte count (IG) of 1% or more suggests the possibility of infection, an IG count of 3% is very likely related to an infection. Interpretation and review of laboratory results Abnormal [facility] Lymphocytes (Bld) [#/Vol] 1.37 10*3/uL [facility] Lymphocytes/100 WBC (Bld) 13.4 % [facility] MCH (RBC) [Entitic mass] 29.8 pg 26.0 - 34.0 pg [facility] MCHC (RBC) [Mass/Vol] 35.7 g/dL 31.0 - 37.0 g/dL [facility] MCV (RBC) [Entitic vol] 83.5 fL 80.0 - 100.0 fL [facility] Monocytes (Bld) [#/Vol] 0.51 10*3/uL [facility] Monocytes/100 WBC (Bld) 5.0 % [facility] Neutrophils (Bld) [#/Vol] 8.23 10*3/uL High [facility] Neutrophils/100 WBC (Bld) 80.4 % [facility] Nucleated RBC (Bld) [#/Vol] 0.00 10*3/uL [facility] Nucleated RBC/100 WBC (Bld) [Ratio] 0.0 % [facility] Platelet mean volume (Bld) [Entitic vol] 10.2 fL 9.4 - 12.4 fL [facility] Platelets (Bld) [#/Vol] 157 10*3/uL [facility] RBC (Bld) [#/Vol] 5.40 10*6/uL High [facility] ealth WBC (Bld) [#/Vol] 10.23 10*3/uL [facility] CT Head Without Contrast (St ro)on 06-06-2022 1. No acute intracranial abnormality. 2. Atherosclerotic calcification and chronic microvascular ischemia. [facility]/ENT Surgical Workstation ID: [id number] [employer] EXAMINATION: CT BRAIN WITHOUT CONTRAST HISTORY: Right-sided [...] SKULL BASE/CALVARIUM: Normal. EXTRACRANIAL SOFT TISSUES: Normal. [employer] Paras Mancilla MD - 06/06/2022 EXAMINATION: CT [...] chronic microvascular ischemia. SAY/mkv Workstation ID: [id number] [facility] Radiology Study observation (narrative) [facility] CT Head Without Contrast (St ro)Ordered By: Paras Mancilla on 06-06-2022 [facility] Work Phone: CTA Head vessels and Neck ve ssels W contrast Marj 06-06-2022 No large vessel occlusion. A focal moderate stenosis each in the distal right P2 and left P3. Carotids and vertebral arteries show no significant stenosis or dissection. Workstation ID: [id number] [facility] EXAMINATION: CT ANGIOGRAM HEAD NECK (STROKE). 06/06/2022 [...] images were generated on a separate independent [employer] workstation. NASCET criteria were used to assess [...] carotids show no significant stenosis or dissection. [employer] Edmond Frye MD - 06/06/2022 EXAMINATION: CT [...] images were generated on a separate independent [employer] workstation. NASCET criteria were used to assess [...] significant stenosis or dissection. Workstation ID: [id number] [facility] Radiology Study observation (narrative) [facility] CTA Head vessels and Neck ve ssels W contrast IVOrdered By: Edmond Barker on 06-06-2022 [facility] Work Phone: ECG 12 Leadon 06-06-2022 Jaime [...] segments normal T Waves: T waves normal [facility] Glucose (Bld) [Mass/Vol]on 1 08-07-2021 Glucose [Mass/Vol] 444 mg/dL Critically high 65 - 99 mg/d L [facility] Interpretation and review of laboratory results Abnormal [facility] Critical result acte d upon time of test. Test performed at bedside. [facility] Glucose [Mass/Vol] 448 mg/dL Critically high 65 - 99 mg/d L [facility] Interpretation and review of laboratory results Abnormal [facility] Critical result acte d upon time of test. Test performed at bedside. [facility] INR Coag (PPP) [Relative samm e]on 06-06-2022 Interpretation and review of laboratory results Normal [facility] PT Coag (PPP) [Time] 12.9 s [facility] During the induction phase of oral anticoagulation, the INR may not reflect the anticoagulation status of the patient. Therapeutic ranges for INR's are: Most clinical situations: INR 2.0-3.0 Mechanical Prosthetic Valve: INR 2.5-3.5 Critical: INR >5.0 [facility] Influenza virus A and B RNA and SARS-CoV-2 (COVID-19) N gene panel FINA+probe (Resp)Ordered By: Krystal Floyd on 06-06-2022 FLUAV RNA FINA+probe Ql (Unsp spec) Not detected Not Detected [facility] FLUBV RNA FINA+probe Ql (Unsp spec) Not detected Not Detected [facility] Interpretation and review of laboratory results Normal [facility] SARS-CoV-2 (COVID-19) RNA FINA+probe Ql (Resp) Not detected Not Detected [facility] This test was performed under the [facility]'s Emergency Use Authorization (EUA). Testing was [...] the following links: For Healthcare Providers: https://www.fda.gov/m edia/018736/download For Patients: https://www.fda.gov/m edia/681015/download [facility] Laboratory - Chemistry and C hemistry - challengeon 06-06-2022 Base excess Calc (BldV) [Moles/Vol] 4.2 mmol/L High -2.0 - 2.0 [facility] Calcium.ionized [Mass/Vol] 4.4 mg/dL Low 4.5 - 5.3 mg/dL [facility] Carboxyhemoglobin (BldA) [Mass fraction] 2.4 High NINF [facility] Comment on above: Reference Ranges: Suburb Non-smokers: <1.5% Smokers: 1.5-5.0% Heavy Smokers: 5.0-9.0% Chloride [Moles/Vol] 100 mmol/L 98 - 10 8 mmol/L [facility] CO2 (BldV) [Partial pressure] 46.1 mm[Hg] [facility] Glucose post fast [Mass/Vol] 372 mg/dL High 65 - 99 mg/dL [facility] HCO3 (Bld) [Moles/Vol] 29.7 mmol/L High 24.0 - 28.0 mmol/L [facility] Lactate [Moles/Vol] 1.2 mmol/L 0.6 - 2. 0 mmol/L [facility] Methemoglobin (BldA) [Mass fraction] 0.7 % 0.0 - 2.0 % [facility] Oxygen (BldV) [Partial pressure] 29 mm[Hg] [facility] Comment on above: Caution: pO2 referen ce ranges for some specimen types are lower than the measuring range of the instrument. Oxyhemoglobin (BldA) [Mass fraction] 54.5 % No established reference range [facility] pH (BldV) 7.42 [pH] 7.32 - 7.42 [facility] Potassium [Moles/Vol] 3.8 mmol/L 3.5 - 5.1 mmol/L [facility] Sodium [Moles/Vol] 137 mmol/L 135 - 145 mmol/L [facility] Laboratory - Hematology and Cell countson 06-06-2022 Hematocrit (BldA) [Volume fraction] 49.1 % High 36.0 - 46.0 % [facility] Hemoglobin (Bld) [Mass/Vol] 16.0 g/dL 12.0 - 16.0 g/dL [facility] Laboratory - Specimen inform ationon 06-06-2022 Specimen source Nom (Unsp spec) Not specified [facility] No Panel Informationon 06-06 Interpretation and review of laboratory results Abnormal [facility] PT/INRon 06-06-2022 INR Coag (PPP) [Relative time] 1.0 {INR} 0.8 - 1.1 [facility] Phosphate [Mass/Vol]on 06-06 Interpretation and review of laboratory results Normal [facility] Phosphoruson 06-06-2022 Phosphate [Mass/Vol] 3.0 mg/dL 2.8 - 4 .1 mg/dL [facility] Troponinon 06-06-2022 Troponin I 8 ng/L NINF - 59 ng/L [facility] Troponin I Interpretation Normal [facility] UrinalysisOrdered By: Piedad Cruz on 06-06-2022 Bacteria Auto Ql (U) Many Abnormal None Seen /hpf [facility] Bilirubin Ql (U) Negative Negative [facility] th Clarity Refractometry automated (U) Clear Clear [facility] Color (U) Yellow Colorless, Yellow [facility] Epithelial cells.squamous Auto (Urine sed) [#/Area] [facility] Glucose Auto test strip (U) [Mass/Vol] >=500 Abnormal Negative mg/dL [facility] Hemoglobin Auto test strip Ql (U) Negative Negative [facility] Interpretation and review of laboratory results Abnormal [facility] Ketones (U) [Mass/Vol] Trace Abnormal Negative mg/dL [facility] Leukocyte esterase Auto test strip Ql (U) Negative Negative [facility] Nitrite Auto test strip Ql (U) Positive Abnormal Negative [facility] pH (U) 6.5 [pH] 5.0 - 7.0 [facility] Protein (U) [Mass/Vol] Negative Negative mg/dL [facility] RBC Auto (Urine sed) [#/Area] 1 [facility] Specific gravity (U) [Rel density] 1.032 High 1.005 - 1.025 [facility] Urobilinogen (U) [Mass/Vol] mg/dL NINF - 2.0 mg/dL [facility] WBC Auto (Urine sed) [#/Area] 9 High [facility] Microscopic examination is performed on all urinalysis samples and only positive findings are reported. The test for blood on the chemical analytic portion of urinalysis may also be positive due to hemoglobinuria and myoglobinuria and if red blood cells are present they are quantified by microscopic examination. [facility] Vital signson 06-06-2022 Oxygen saturation in Venous blood 56.2 % 40.0 - 70.0 % [facility] XR Chest 1 Viewon 06-06-2022 No acute findings given the low lung volumes, portable technique and patient rotation. DPR/alt Workstation ID: [id number] [place] RIS EXAMINATION: XR CHEST PA/AP 06/06/2022 7:07 [...] is decreased mineralization of the osseous structures. [facility] Tobias Gonzalez MD - 06/06/2022 EXAMINATION: [...] and patient rotation. DPR/alt Workstation ID: [id number] [facility] Radiology Study observation (narrative) [facility] XR Chest 1 ViewOrdered By: Burt Gonzalez on 06-06-2022 [facility] Work Phone: CBC WITH AUTO DIFFERENTIALon 04-18-2020 Basophils (Bld) [#/Vol] 0.02 10*3/uL [facility] Basophils/100 WBC (Bld) 0.2 % [facility] Eosinophils (Bld) [#/Vol] 0.03 10*3/uL [facility] Eosinophils/100 WBC (Bld) 0.3 % [facility] Erythrocyte distribution width (RBC) [Entitic vol] 13.5 % 11.6 - 14.8 % [facility] Hematocrit (Bld) [Volume fraction] 43.3 % 36 - 46 % [facility] Hemoglobin (Bld) [Mass/Vol] 14.6 g/dL 12 - 16 g/dL [facility] Immature granulocytes (Bld) [#/Vol] 0.03 10*3/uL [facility] Immature granulocytes/100 WBC (Bld) 0.30 % [facility] Comment on above: The IG parameter is the percentage of metamyelocytes, myelocytes and promyelocytes. An immature granulocyte count (IG) of 1% or more suggests the possibility of infection, an IG count of 3% is very likely related to an infection. Interpretation and review of laboratory results Abnormal [facility] Lymphocytes (Bld) [#/Vol] 2.35 10*3/uL [facility] Lymphocytes/100 WBC (Bld) 26.2 % [facility] MCH (RBC) [Entitic mass] 29.1 pg 26 - 34 pg [facility] MCHC (RBC) [Mass/Vol] 33.7 g/dL 31 - 37 g/dL [facility] MCV (RBC) [Entitic vol] 86.3 fL 80 - 100 fL [facility] Monocytes (Bld) [#/Vol] 0.56 10*3/uL [facility] Monocytes/100 WBC (Bld) 6.2 % [facility] Neutrophils (Bld) [#/Vol] 5.99 10*3/uL [facility] Neutrophils/100 WBC (Bld) 66.8 % [facility] Nucleated RBC (Bld) [#/Vol] 0.00 10*3/uL [facility] Nucleated RBC/100 WBC (Bld) [Ratio] 0.0 % [facility] Platelet mean volume (Bld) [Entitic vol] 10.1 fL 9.4 - 12.4 fL [facility] Platelets (Bld) [#/Vol] 148 10*3/uL Low [facility] RBC (Bld) [#/Vol] 5.02 10*6/uL [facility] WBC (Bld) [#/Vol] 8.98 10*3/uL [facility] ECHOCARDIOGRAM COMPLETEon Aortic valve area 2.92416 cm [facility] AV mean gradient 4 mmHg [facility] EF 56.1119 % [facility] Interface, Rad In [facility] Echopacs - 04/18/2020 2:08 PM EST Patient Info Name: HILARIA LYONS Age: 70 years : 1950 Gender: Female Ht: 155 cm Wt: 82 kg BSA: 1.91 m2 HR: 94 bpm BP: 168 / 96 mmHg Heart Rhythm: Tachycardia, Sinus Rhythm Technical Quality: Fair Exam Date: 04/18/2020 9:42 AM Patient Status: Inpatient Hydrography Teacher: Laila Márquez RCDS Exam Type: ECHOCARDIOGRAM COMPLETE Study Info Indications I50.9 - Heart failure, unspecified Referring Physician: KADEEM Hernandez KHALDOON, ; [id number] BMI: 34.01 kg/m2 Summary 1. Moderate left [...] mmHg MV VTI 18.00 cm MV Decel [place] 383.00 cm/s2 MV PHT 46 ms MV [...] 16.00-34.00 RA Dimensions ------- RA Systolic Major [place] Length (4C) 4.63 cm <=5.30 RA Area (4C) 14.20 cm2 <=18.00 RA Area (4C) Index 7.43 cm2/m2 RA ESV (4C MOD) 34.50 ml 15.00-27.00 RA ESV Index (4C MOD) 18.05 ml/m2 <=27.00 Report Signatures Finalized by Yuly Wharton MD on 04/18/2020 02:08 PM [facility] Patient Info Name: HILARIA LYONS Age: 70 years : 1950 Gender: Female Ht: 155 cm Wt: 82 kg BSA: 1.91 m2 HR: 94 bpm BP: 168 / 96 mmHg Heart Rhythm: Tachycardia, Sinus Rhythm Technical Quality: Fair Exam Date: 04/18/2020 9:42 AM Patient Status: Inpatient Hydrography Teacher: Laila Márquez RCDS Exam Type: ECHOCARDIOGRAM COMPLETE Study Info Indications I50.9 - Heart failure, unspecified Referring Physician: [id number] Crowley KHALDOON, ; [id number] BMI: 34.01 kg/m2 Summary 1. Moderate left [...] mmHg MV VTI 18.00 cm MV Decel [place] 383.00 cm/s2 MV PHT 46 ms MV [...] 16.00-34.00 RA Dimensions ------- RA Systolic [place] Length (4C) 4.63 cm <=5.30 RA Area (4C) 14.20 cm2 <=18.00 RA Area (4C) Index 7.43 cm2/m2 RA ESV (4C MOD) 34.50 ml 15.00-27.00 RA ESV Index (4C MOD) 18.05 ml/m2 <=27.00 Report Signatures Finalized by Yuly Wharton MD on 04/18/2020 02:08 PM [facility] EKGon 04-18-2020 Ordered by an unspecified provider. [facility] Hemoglobin A1con 04-18-2020 Average glucose Estimated from glycated hemoglobin mass conc (Bld) 272 mg/dL High 68 - 114 mg/dL [facility] HbA1c (Bld) [Mass fraction] 11.1 % High 4 - 5.6 % [facility] Interpretation and review of laboratory results Abnormal [facility] Normal: 4.0% - 5.6% Increased risk for diabetes: 5.7% - 6.4% Diabetes: >= 6.5% Pediatrics: No established reference range Estimated average glucose: 68-114 mg/dL [facility] Magnesiumon 04-18-2020 Magnesium [Mass/Vol] 1.8 mg/dL 1.6 - 2 .4 mg/dL [facility] Otheron 04-18-2020 Interpretation and review of laboratory results Normal [facility] POC Glucoseon 04-18-2020 Glucose [Mass/Vol] 247 mg/dL High 65 - 99 mg/dL [facility] Interpretation and review of laboratory results Abnormal [facility] Glucose [Mass/Vol] 243 mg/dL High 65 - 99 mg/dL [facility] Interpretation and review of laboratory results Abnormal [facility] Renal Function Panelon 04-18 Albumin [Mass/Vol] 2.7 g/dL Low 3.2 - 5.2 g/dL [facility] Anion gap [Moles/Vol] 11 mmol/L 10 - 20 mmol/L [facility] Calcium [Mass/Vol] 8.1 mg/dL Low 8.4 - 10. 2 mg/dL [facility] Chloride [Moles/Vol] 108 mmol/L 98 - 10 8 mmol/L [facility] Creatinine [Mass/Vol] 0.46 mg/dL Low 0.60 - 1.20 [facility] GFR/1.73 sq M predicted among non-blacks MDRD (S/P/Bld) [Vol rate/Area] The eGFR should be used for monitoring renal function only and not for medication dosing. [facility] GFR/1.73 sq M.predicted CKD-EPI (S/P/Bld) [Vol rate/Area] 102 >=60 mL/min/1.73 m2 [facility] Glucose [Mass/Vol] 270 mg/dL High 65 - 99 mg/dL [facility] HCO3 [Moles/Vol] 25 mmol/L 21 - 32 mmol/L [facility] Interpretation and review of laboratory results Abnormal [facility] Phosphate [Mass/Vol] 2.4 mg/dL Low 2.8 - 4 .1 mg/dL [facility] Potassium [Moles/Vol] 3.6 mmol/L 3.5 - 5.1 mmol/L [facility] Sodium [Moles/Vol] 140 mmol/L 135 - 145 mmol/L [facility] Urea nitrogen [Mass/Vol] 12 mg/dL 8 - 25 mg/dL [facility] Urea nitrogen/Creatinine [Mass ratio] 26.1 mg/mg High [facility] TROPONIN 04-18-2020 Interpretation and review of laboratory results Abnormal [facility] Troponin I.cardiac [Mass/Vol] ng/mL Critically high < -/+ 8 change ng/L [facility] Troponin I.cardiac [Mass/Vol] 29 ng/L <=45 [facility] Troponin I.cardiac [Mass/Vol] Possible acute cardiac injury. Consider additional troponin testing and correlate with clinical factors. [facility] TSHon 04-18-2020 TSH Qn 0.99 m[IU]/L [facility] CBC WITH AUTO DIFFERENTIALon 04-17-2020 Basophils (Bld) [#/Vol] 0.04 10*3/uL [facility] Basophils/100 WBC (Bld) 0.3 % [facility] Eosinophils (Bld) [#/Vol] 0.01 10*3/uL [facility] Eosinophils/100 WBC (Bld) 0.1 % [facility] Erythrocyte distribution width (RBC) [Entitic vol] 13.6 % 11.6 - 14.8 % [facility] Hematocrit (Bld) [Volume fraction] 51.3 % High 36 - 46 % [facility] Hemoglobin (Bld) [Mass/Vol] 17.3 g/dL High 12 - 16 g/dL [facility] Immature granulocytes (Bld) [#/Vol] 0.06 10*3/uL [facility] Immature granulocytes/100 WBC (Bld) 0.40 % [facility] Comment on above: The IG parameter is the percentage of metamyelocytes, myelocytes and promyelocytes. An immature granulocyte count (IG) of 1% or more suggests the possibility of infection, an IG count of 3% is very likely related to an infection. Interpretation and review of laboratory results Abnormal [facility] Lymphocytes (Bld) [#/Vol] 1.63 10*3/uL [facility] Lymphocytes/100 WBC (Bld) 11.7 % [facility] MCH (RBC) [Entitic mass] 28.8 pg 26 - 34 pg [facility] MCHC (RBC) [Mass/Vol] 33.7 g/dL 31 - 37 g/dL [facility] MCV (RBC) [Entitic vol] 85.4 fL 80 - 100 fL [facility] Monocytes (Bld) [#/Vol] 0.73 10*3/uL [facility] Monocytes/100 WBC (Bld) 5.2 % [facility] Neutrophils (Bld) [#/Vol] 11.50 10*3/uL High [facility] Neutrophils/100 WBC (Bld) 82.3 % [facility] Nucleated RBC (Bld) [#/Vol] 0.00 10*3/uL [facility] Nucleated RBC/100 WBC (Bld) [Ratio] 0.0 % [facility] Platelet mean volume (Bld) [Entitic vol] 9.9 fL 9.4 - 12.4 fL [facility] Platelets (Bld) [#/Vol] 175 10*3/uL [facility] RBC (Bld) [#/Vol] 6.01 10*6/uL High [facility] ealth WBC (Bld) [#/Vol] 13.97 10*3/uL [facility] COVID-19, Molecularon 2019 Interpretation and review of laboratory results Normal [facility] SARS-CoV-2 Not Detected Not Detected [facility] Comment on above: This test was perfor med under the FDA's Emergency Use Authorization (EUA). Testing was performed using the [place] ID NOW COVID-19 assay on the ID NOW platform. This test has not been approved for use in asymptomatic patients and its performance in this patient population has not been evaluated. Negative results do not rule out the presence of SARS-CoV-2/COVID-19. Fact sheets for the EUA can be found at the following links: For Healthcare Providers: https://www.fda.gov/media/848302/download For Patients: https://www.fda.gov/media/397394/download Chem 704-17-2020 Anion gap [Moles/Vol] 11 mmol/L 10 - 20 mmol/L [facility] Chloride [Moles/Vol] 102 mmol/L 98 - 10 8 mmol/L [facility] Creatinine [Mass/Vol] 0.65 mg/dL 0.60 - 1.20 [facility] GFR/1.73 sq M predicted among non-blacks MDRD (S/P/Bld) [Vol rate/Area] The eGFR should be used for monitoring renal function only and not for medication dosing. [facility] GFR/1.73 sq M.predicted CKD-EPI (S/P/Bld) [Vol rate/Area] 91 >=60 mL/min/1.73 m2 [facility] Glucose [Mass/Vol] 247 mg/dL High 65 - 99 mg/dL [facility] HCO3 [Moles/Vol] 27 mmol/L 21 - 32 mmol/L [facility] Interpretation and review of laboratory results Abnormal [facility] Potassium [Moles/Vol] 3.0 mmol/L Low 3.5 - 5.1 mmol/L [facility] Sodium [Moles/Vol] 137 mmol/L 135 - 145 mmol/L [facility] Urea nitrogen [Mass/Vol] 16 mg/dL 8 - 25 mg/dL [facility] Urea nitrogen/Creatinine [Mass ratio] 24.6 mg/mg High [facility] D-DIMER, QUANTITATIVEon Fibrin D-dimer FEU (PPP) [Mass/Vol] 0.49 0.27 - 0.49 mcg/mL FEU [facility] Interpretation and review of laboratory results Normal [facility] A D-dimer concentration of <0.5 micrograms per milliliter FEU is considered a low probability for pulmonary embolus (PE) and deep venous thrombosis (DVT). Results of this test should always be interpreted in conjunction with the patient's medical history,clinical presentation, and other findings. Clinical diagnosis should not be based on the results of the D-dimer alone. [facility] ECG 12-LEADon 04-17-2020 Atrial Rate 116 BPM [facility] P [place] 67 degrees [facility] P-R Interval 148 ms [facility] Q-T Interval 322 ms [facility] QRS Duration 92 ms [facility] QTC Calculation (Bezet) 447 ms [facility] R [place] -3 degrees [facility] T [place] 52 degrees [facility] Ventricular Rate 116 BPM [facility] Sinus tachycardia Otherwise normal ECG ECG Cart Interpretation see physician note for interpretation. Confirmed by Dorie Redman ([id number]) on 04/17/2020 10:59:06 PM [facility] Atrial Rate 149 BPM [facility] P [place] 39 degrees [facility] P-R Interval 132 ms [facility] Q-T Interval 302 ms [facility] QRS Duration 80 ms [facility] QTC Calculation (Bezet) 475 ms [facility] R [place] -2 degrees [facility] T [place] 73 degrees [facility] Ventricular Rate 149 BPM [facility] Sinus tachycardia with Premature atrial complexes Septal infarct , age undetermined Abnormal ECG ECG Cart Interpretation see physician note for interpretation. Confirmed by Dorie Redman ([id number]) on 04/17/2020 4:45:56 PM [facility] Magnesium Levelon 04-17-2020 Interpretation and review of laboratory results Normal [facility] Magnesium [Mass/Vol] 1.8 mg/dL 1.6 - 2 .4 mg/dL [facility] Magnesium [Mass/Vol] 2.0 mg/dL 1.6 - 2 .4 mg/dL [facility] Otheron 04-17-2020 Extra Tube Hold for add-ons. [facility] Comment on above: Auto resulted. Interpretation and review of laboratory results Normal [facility] POC Glucoseon 04-17-2020 Glucose [Mass/Vol] 219 mg/dL High 65 - 99 mg/dL [facility] Interpretation and review of laboratory results Abnormal [facility] PT/INRon 04-17-2020 INR Coag (PPP) [Relative time] 1.0 {INR} [facility] Interpretation and review of laboratory results Normal [facility] PT Coag (PPP) [Time] 12.8 s [facility] During the induction phase of oral anticoagulation, the INR may not reflect the anticoagulation status of the patient. Therapeutic ranges for INR's are: Most clinical situations: INR 2.0-3.0 Mechanical Prosthetic Valve: INR 2.5-3.5 Critical: INR >5.0 [facility] TROPONINon 04-17-2020 Interpretation and review of laboratory results Abnormal [facility] Troponin I.cardiac [Mass/Vol] 33 ng/L <=45 [facility] Troponin I.cardiac [Mass/Vol] ng/mL Critically high < -/+ 8 change ng/L [facility] Troponin I.cardiac [Mass/Vol] Possible acute cardiac injury. Consider additional troponin testing and correlate with clinical factors. [facility] Interpretation and review of laboratory results Abnormal [facility] Troponin I.cardiac [Mass/Vol] 25 ng/L <=45 [facility] Troponin I.cardiac [Mass/Vol] Possible acute cardiac injury. Consider additional troponin testing and correlate with clinical factors. [facility] Troponin I.cardiac [Mass/Vol] ng/mL Critically high < -/+ 8 change ng/L [facility] Troponin I.cardiac [Mass/Vol] Normal [facility] Troponin I.cardiac [Mass/Vol] ng/mL <=45 ng/L [facility] TSH with Reflex Free T4on TSH Qn 0.80 m[IU]/L [facility] XR Chest 1 Viewon 04-17-2020 Interface, Rad [...] No acute cardiopulmonary abnormalities. Workstation ID: [id number] [facility] No acute cardiopulmonary abnormalities. Workstation ID: [id number] [facility] EXAMINATION: XR CHES T PA/AP HISTORY: ORDERING [...] within normal limits. No acute bony abnormalities. [facility] Basic Metabolic Panelon 07-2 Calcium 9.0 mg/dL Normal 8.4-10.2 [facility] Comment on above: Performed By: #### C HEM8, HBA1C ####Unless otherwise noted, all testing performed by [address] [id number]: [id number] Director: Adonay Hanks M.D. Chloride 101 mmol/L Normal 98-108 [facility] Comment on above: Performed By: #### C HEM8, HBA1C ####Unless otherwise noted, all testing performed by [address] [phone]: [id number] Director: Adonay Hanks M.D. CO2 28 mmol/L Normal 21-32 [facility] Comment on above: Performed By: #### C HEM8, HBA1C ####Unless otherwise noted, all testing performed by [address] [phone]: [id number] Director: Adonay Hanks M.D. Creatinine 0.58 mg/dL Low 0.60-1.20 [facility] Comment on above: Performed By: #### C HEM8, HBA1C ####Unless otherwise noted, all testing performed by [address] [id number]: [id number] Director: Adonay Hanks M.D. eGFR (black) mL/min/{1.73_m2} Normal [facility] Comment on above: GFR Calc Result Comment: Afri can [place] GFR Calc Performed By: #### C HEM8, HBA1C ####Unless otherwise noted, all testing performed by [address] [id number]: [id number] Director: Adonay Hanks M.D. eGFR (non-black) mL/min/{1.73_m2} Normal [facility] Comment on above: Non- GFR Calc [...] ####Unless otherwise noted, all testing performed by [address] [id number]: [id number] Director: Adonay Hanks M.D. Glucose mass conc 320 mg/dL High 70-99 [facility] Comment on above: This test result [...] ####Unless otherwise noted, all testing performed by [place] [phone]: [id number] Director: Adonay Hanks M.D. Interpretation and review of laboratory results Abnormal Invalid Interpretation Code [facility] Potassium molar conc 4.0 mmol/L Normal 3.5-5.1 [facility] Comment on above: Performed By: #### C HEM8, HBA1C ####Unless otherwise noted, all testing performed by [place] [phone]: [id number] Director: Adonay Hanks M.D. Sodium 138 mmol/L Normal 135-145 [facility] Comment on above: Performed By: #### C HEM8, HBA1C ####Unless otherwise noted, all testing performed by [place] [phone]: [id number] Director: Adonay Hanks M.D. Urea nitrogen 15 mg/dL Normal 8-25 [facility] Comment on above: Performed By: #### C HEM8, HBA1C ####Unless otherwise noted, all testing performed by [place] [phone]: [id number] Director: Adonay Hanks M.D. Hemoglobin A1con 01-01-2018 Hemoglobin A1c/Hemoglobin.total mass fraction (Bld) 11.2 % High 4.1-6.5 [facility] Comment on above: Performed By: #### C HEM8, HBA1C ####Unless otherwise noted, all testing performed by [place] [id number] [address], [place] [phone]: [id number] Director: Adonay Hanks M.D. Vital Signs Date Time Vital Sign Value Performing Clinician Facility 05-16-2024 14:12-0500 Diastolic blood pressure 100 mm[Hg] Christiano Fletcher MD Work Phone: [facility] 05-16-2024 14:12-0500 Systolic blood pressure 188 mm[Hg] Christiano Fletcher MD Work Phone: [facility] 03-31-2024 13:36-0400 Body weight 82.37 kg Emir Orozco MD Work Phone: [facility] 03-31-2024 13:36-0400 Diastolic blood pressure 114 mm[Hg] Emir Orozco MD Work Phone: [facility] 03-31-2024 13:36-0400 Heart rate 108 /min Emir Orozco MD Work Phone: [facility] 03-31-2024 13:36-0400 SaO2% (BldA) [Mass fraction] 99 % Emir Orozco MD Work Phone: [facility] 03-31-2024 13:36-0400 Systolic blood pressure 196 mm[Hg] Emir Orozco MD Work Phone: [facility] 02-17-2024 10:34-0400 Diastolic blood pressure 108 mm[Hg] Christiano Fletcher MD Work Phone: [facility] 02-17-2024 10:34-0400 Heart rate 118 /min Christiano Fletcher MD Work Phone: [facility] 02-17-2024 10:34-0400 Systolic blood pressure 197 mm[Hg] Christiano Fletcher MD Work Phone: [facility] 02-17-2024 09:43-0400 Body mass index (BMI) [Ratio] 34.96 kg/m2 Christiano Fletcher MD Work Phone: [facility] 02-17-2024 09:43-0400 Body weight 83.92 kg Christiano Fletcher MD Work Phone: [facility] 04-09-2023 09:59-0400 Diastolic blood pressure 98 mm[Hg] Vaishali Mendez [employer]MING PROC[employer] LINE WORKER Work Phone: [facility] 04-09-2023 09:59-0400 Systolic blood pressure 148 mm[Hg] Vaishali Mendez [employer]MING [employer] WORKER Work Phone: [facility] 04-09-2023 09:32-0400 Heart rate 90 /min Vaishali Mendez [employer] WORK[employer] Work Phone: [facility] 04-09-2023 09:22-0400 Body mass index (BMI) [Ratio] 32.12 kg/m2 Vaishali Mendez [employer] WORK[employer] Work Phone: [facility] 04-09-2023 09:22-0400 Body weight 77.11 kg Vaishali Mendez [employer] WORK[employer] Work Phone: [facility] 12-08-2022 14:42-0400 Body height 154.9 cm Vaishali Mendez [employer]ING [employer] WORKER Work Phone: [facility] 12-08-2022 14:42-0400 Body mass index (BMI) [Ratio] 31.74 kg/m2 Vaishali Mendez [employer] WORKER Work Phone: [facility] 12-08-2022 14:42-0400 Body weight 76.2 kg Vaishali Mendez [employer]ING [employer] WORKER Work Phone: [facility] 12-08-2022 14:42-0400 Diastolic blood pressure 73 mm[Hg] Vaishali Mendez [employer]ING [employer] WORKER Work Phone: [facility] 12-08-2022 14:42-0400 Heart rate 99 /min Vaishali Mendez [employer] WORKER Work Phone: [facility] 12-08-2022 14:42-0400 Systolic blood pressure 117 mm[Hg] Vaishali Mendez [employer] WORKER Work Phone: [facility] 06-08-2022 12:03-0500 Body temperature 98.29 [degF] Jaime Coats DO Work Phone: [facility] 06-08-2022 12:03-0500 Diastolic blood pressure 76 mm[Hg] Jaime Coats DO Work Phone: [facility] 06-08-2022 12:03-0500 Heart rate 96 /min Jaime Jorge L DO Work Phone: [facility] 06-08-2022 12:03-0500 Respiratory rate 15 /min Jaime Coats DO Work Phone: [facility] 06-08-2022 12:03-0500 SaO2% (BldA) [Mass fraction] 96 % Jaime Coats DO Work Phone: [facility] 06-08-2022 12:03-0500 Systolic blood pressure 168 mm[Hg] Jaime Jorge L DO Work Phone: [facility] 06-06-2022 23:18-0500 Body height 154.9 cm Jaime Jorge L DO Work Phone: [facility] 06-06-2022 23:18-0500 Body mass index (BMI) [Ratio] 33.45 kg/m2 Jaime Jorge L DO Work Phone: [facility] 06-06-2022 23:18-0500 Body weight 80.3 kg Jaime Coats DO Work Phone: [facility] 05-29-2020 13:31-0500 BMI (Body Mass Index) 34.01 kg/m2 Allan Coats [facility] 05-29-2020 13:31-0500 Body weight 81.65 kg Allan Coats [facility] 05-29-2020 13:31-0500 BP Diastolic 85 mm[Hg] Allan Coats [facility] 05-29-2020 13:31-0500 BP Systolic 140 mm[Hg] Allan Coats [facility] 05-29-2020 13:31-0500 Height 154.9 cm Allan Coats [facility] 05-29-2020 13:31-0500 Pulse (Heart Rate) 99 /min Allan Coats [facility] 05-29-2020 13:31-0500 Pulse Oximetry 96 % Allan Coats [facility] 04-18-2020 12:42-0500 Body Temperature 98.4 [degF] Lucian Fernandez [facility] 04-18-2020 12:42-0500 BP Diastolic 74 mm[Hg] Lucian Fernandez [facility] 04-18-2020 12:42-0500 BP Systolic 149 mm[Hg] Lucian Fernandez [facility] 04-18-2020 12:42-0500 Pulse (Heart Rate) 94 /min Lucian Fernandez [facility] 04-18-2020 12:42-0500 Pulse Oximetry 95 % Lucian Fernandez [facility] 04-18-2020 12:42-0500 Respiratory Rate 16 /min Lucian [facility] 04-17-2020 15:20-0500 BMI (Body Mass Index) 34.01 kg/m2 Lucian [facility] 04-17-2020 15:20-0500 Body weight 81.65 kg Lucian [facility] 04-17-2020 15:20-0500 Height 154.9 cm [facility] Encounters Encounter Date Encounter Type Care Provider Facility Start: 04-25-2025 ambulatory Jillianjacob Waltera OLS Facili ty:[facility] Start: 04-23-2025 ambulatory Jillianjacob Waltera OLS Facili ty:[facility] Start: 04-08-2025 End: 04-22-2025 Evaluation and management of inpatient ELHAM CONNORS Facility:[facility] Start: 05-16-2024 End: 05-16-2024 Office outpatient visit 25 minutes Christiano Fletcher MD Work Phone: [facility] Comment on above: Well controlled type 2 diabetes mellitus (HCC) (Primary Dx) Start: 05-16-2024 End: 05-16-2024 ambulatory CHRISTIANO FLETCHER [facility] Start: 03-31-2024 End: 03-31-2024 Office outpatient visit 25 minutes Emir Orozco MD Work Phone: [facility] Comment on above: Type 2 diabetes mihaela itus without complication, without long- term current use of insulin (Primary Dx); Essential hypertension; Mixed hyperlipidemia; Seizure disorder; Meningioma Start: 03-31-2024 ambulatory SELF SELF [facility] Start: 02-17-2024 End: 02-17-2024 Emergency department patient visit PHYSICIAN [facility] Start: 02-17-2024 End: 02-17-2024 Office outpatient visit 25 minutes Christiano Fletcher MD Work Phone: [facility] Comment on above: Well controlled type 2 diabetes mellitus (HCC) (Primary Dx) Start: 02-17-2024 End: 02-17-2024 ambulatory CHRISTIANO FLETCHER [facility] Start: 02-12-2024 End: 02-16-2024 ambulatory ENEDINASHAYE JURADO [facility] Start: 02-11-2024 End: 02-11-2024 Refill Vaishali Mendez [employer]MING PROC[employer] WORKER Work Phone: [facility] Start: 04-09-2023 End: 04-09-2023 Office outpatient visit 25 minutes Vaishali Mendez FORMING PROCESS LINE WORKER Work Phone: [facility] Comment on above: Type 2 diabetes mihaela itus with hyperglycemia, with long-term current use of insulin (HCC) (Primary Dx); Primary hypertension Start: 04-03-2023 End: 04-07-[address] [facility] Start: 02-06-2023 Refill Vaishali Mendez FORMING PROCESS LINE WORKER Work Phone: [facility] Start: 12-08-2022 End: 12-08-2022 Office outpatient visit 25 minutes Vaishali Mendez FORMING PROCESS LINE WORKER Work Phone: [facility] [place] Comment on above: Type 2 diabetes mihaela itus with hyperglycemia, with long-term current use of insulin (HCC) (Primary Dx); Primary hypertension Start: 11-13-2022 Orders Only Vaishali Mendez FORMING PROCESS LINE WORKER Work Phone: [facility] Comment on above: Type 2 diabetes mihaela itus with hypoglycemia without coma, with long-term current use of insulin (HCC) (Primary Dx) Start: 06-06-2022 End: 06-08-2022 Evaluation and management of inpatient Jaime Coats DO Work Phone: [facility] Start: 06-06-2022 ambulatory PROVIDER NOT I N SYSTEM [facility] Start: 07-23-2020 End: 07-23-2020 Orders Only Laurence Gamez Kianna Work Phone: [facility] Start: 05-29-2020 End: 05-29-2020 Office outpatient new 45 minutes Enedina James Work Phone: [facility] Comment on above: Tachycardia (Primary Dx); Essential hypertension; Class 1 obesity due to excess calories with serious comorbidity and body mass index (BMI) of 34.0 to 34.9 in adult; Type 2 diabetes mellitus without complication, with long-term current use of insulin (HCC) Start: 04-17-2020 End: 04-18-2020 Emergency department patient visit Lucian Parasjada Fernandez Work Phone: [facility] Comment on above: Tachycardia (Primary Dx); Hypokalemia; Hypertension, unspecified type Start: 01-01-2018 Patient encounter Lucian Velásquez cility:[place] Start: 01-01-2018 End: 01-01-2018 Patient encounter Lucian Mott Work Phone: [facility] Procedures Date Procedure Procedure Detail Performing Clinician Start: 04-16-2025 Antibody screen ELHAM WEEKS Comment on above: Order Comment: Speci men Type: BLOOD SPECIMENOrdering Facility: [facility] Address: [address] [place] [address] Performed By: #### T SCR ####[facility] BLOOD BANKCLIA [id number] [address] Start: 04-12-2025 Antibody screen ELHAM WEEKS Comment on above: Order Comment: Speci men Type: BLOOD SPECIMENOrdering Facility: [facility] Address: [address] [place] [address] Performed By: #### T SCR ####[facility] BLOOD BANKCLIA [id number] [address] [facility] Start: 04-10-2025 Echocardiography ELHAM FLORES RVIS Start: 05-16-2024 Hemoglobin glycosylated a1c Christiano Fletcher MD Work Phone: Start: 04-09-2023 3 comp foot exam completed Vaishali Mendez CNP Work Phone: Start: 04-03-2023 Microalbumin [Mass/v olume] in Urine by Test strip Vaishali Mendez [employer]MING PROC[employer] LINE WORKER Work Phone: Start: 12-08-2022 3 comp foot exam completed Vaishali Mendez FORMING PROCESS LINE WORKER Work Phone: Start: 06-08-2022 Glucose measurement Alice Elizalde MD Work Phone: Start: 06-08-2022 Glucose measurement Gen lanie [facility] Work Phone: Start: 06-08-2022 Comprehensive metabo lic panel Mariel London MD Work Phone: Start: 06-07-2022 Glucose measurement Gen lanie [facility] Work Phone: Start: 06-07-2022 Glucose measurement Gen lanie [facility] Work Phone: Start: 06-07-2022 Glucose measurement Gen lanie [facility] Work Phone: Start: 06-07-2022 Glucose measurement Gen lanie [facility] Work Phone: Start: 06-07-2022 Mri brain brain stem w/o contrast material Fabian Mccabe MD Work Phone: Start: 06-07-2022 Basic metabolic pane l calcium total Mariel London MD Work Phone: Start: 06-07-2022 End: 06-07-2022 Glucose measurement Generic [facility] Work Phone: Start: 06-07-2022 Glucose measurement Gen lanie [facility] Work Phone: Start: 06-07-2022 Basic metabolic pane l calcium total Mariel London MD Work Phone: Start: 06-07-2022 End: 06-07-2022 Glucose measurement Generic [facility] Work Phone: Start: 06-07-2022 Glucose measurement Gen lanie [facility] Work Phone: Start: 06-07-2022 Basic metabolic pane l calcium total Mariel London MD Work Phone: Start: 06-07-2022 End: 06-07-2022 Glucose measurement Generic [facility] Work Phone: Start: 06-07-2022 Glucose measurement Gen lanie [facility] Work Phone: Start: 06-07-2022 End: 06-07-2022 Glucose measurement Generic [facility] Work Phone: Start: 06-07-2022 Glucose measurement Gen lanie [facility] Work Phone: Start: 06-07-2022 Basic metabolic pane l calcium total Mariel London MD Work Phone: Start: 06-07-2022 Lipid panel Fabian Mccabe MD Work Phone: Start: 06-06-2022 Glucose measurement Gen lanie [facility] Work Phone: [...] exam ches t single view Odilia Goodman FORMING PROCESS LINE WORKER Work Phone: Start: 06-06-2022 Influenza virus A an d B RNA and SARS-CoV-2 (COVID-19) N gene panel - Respiratory specimen by FINA with probe detection Odilia Goodman FORMING PROCESS LINE WORKER Work Phone: Start: 06-06-2022 Ecg routine ecg w/le ast 12 lds w/i&r Jaime Coats DO Work Phone: Start: 06-06-2022 Basic metabolic pane l calcium total Odilia Goodman FORMING PROCESS LINE WORKER Work Phone: Start: 06-06-2022 End: 06-06-2022 Ct head/brain w/o contrast material Odilia Goodman FORMING PROCESS LINE WORKER Work Phone: Start: 04-18-2020 Electrocardiogram Provi gwendolyn [...] 02-16-2025 Urine screening for protein eGFR Diabetes [facility] Start: 11-14-2024 End: 11-14-2024 Patient encounter procedure 11/14/2024 2:15 PM EDT Office Visit [facility] [address] [place] [address] [place] [address] Lauren Berman, FORMING PROCESS LINE WORKER [address] [place], [place] [id number] [facility] Start: 11-14-2024 End: 05-16-2025 Comprehensive metabolic 2000 panel - Serum or Plasma Comprehensive metabolic panel Lab Routine Well controlled type 2 diabetes mellitus (HCC) Expected: 11/14/2024, Expires: 05/16/2025 [facility] Comment on above: Expected: 11/14/2024 , Expires: 05/16/2025 Start: 11-14-2024 Hemoglobin A1c measurement A1C [facility] Start: 11-14-2024 End: 05-16-2025 Hemoglobin A1c/Hemoglobin.total in Blood Hemoglobin A1c Lab Routine Well controlled type 2 diabetes mellitus (HCC) Expected: 11/14/2024, Expires: 05/16/2025 [facility] Work Phone: Comment on above: Expected: 11/14/2024 , Expires: 05/16/2025 Start: 11-14-2024 End: 05-16-2025 Lipid 1996 panel - Serum or Plasma Lipid Panel Lab Routine Well controlled type 2 diabetes mellitus (HCC) Expected: 11/14/2024, Expires: 05/16/2025 [facility] Comment on above: Expected: 11/14/2024 , Expires: 05/16/2025 Start: 11-14-2024 End: 05-16-2025 Microalbumin measurement, urine, quantitative Microalbumin/Creatinin e Ratio, UR Random Lab Routine Well controlled type 2 diabetes mellitus (HCC) Expected: 11/14/2024, Expires: 05/16/2025 [facility] Comment on above: Expected: 11/14/2024 , Expires: 05/16/2025 Start: 08-12-2024 Hemoglobin A1c measurement A1C [facility] Start: 05-18-2024 End: 02-16-2025 Hemoglobin A1c/Hemoglobin.total in Blood Hemoglobin A1c Lab Routine Well controlled type 2 diabetes mellitus (HCC) Expected: 05/18/2024, Expires: 02/16/2025 [facility] Work Phone: Comment on above: Expected: 05/18/2024 , Expires: 02/16/2025 Start: 05-18-2024 End: 02-16-2025 Lipid 1996 panel - Serum or Plasma Lipid panel Lab Routine Well controlled type 2 diabetes mellitus (HCC) Expected: 05/18/2024, Expires: 02/16/2025 [facility] Comment on above: Expected: 05/18/2024 , Expires: 02/16/2025 Start: 05-18-2024 End: 02-16-2025 Microalbumin measurement, urine, quantitative Microalbumin/Creatinin e Ratio, UR Random Lab Routine Well controlled type 2 diabetes mellitus (HCC) Expected: 05/18/2024, Expires: 02/16/2025 [facility] Comment on above: Expected: 05/18/2024 , Expires: 02/16/2025 Start: 05-16-2024 End: 05-16-2024 Patient encounter procedure 05/16/2024 2:30 PM EST Office Visit [facility] [address] [facility] Medical [place] [address] Christiano Fletcher MD [address] [place] [id number] [facility] Start: 04-25-2024 End: 04-25-2024 Patient encounter procedure 04/25/2024 11:00 AM EST Office Visit [facility] [address] [place] [phone] Emir Orozco MD [address] [place] [address] [facility] Start: 04-09-2024 Diabetic foot examination [facility] Start: 04-03-2024 Urine screening for protein [facility] Start: 02-17-2024 End: 02-17-2024 Patient encounter procedure 02/17/2024 10:00 AM EDT Office Visit [facility] [address] [facility] [place] [address] Christiano Fletcher MD [address] [place] [address] [facility] Start: 02-14-2024 COVID-19 Vaccine ( season) COVID-19 Vaccine ( season) [facility] Start: 02-14-2024 COVID-19 Vaccine ( season) COVID-19 Vaccine ( season) [facility] Start: 02-14-2024 Influenza vaccination Influenza Vacc ine (#1) [facility] Start: 12-09-2023 Diabetic foot examination Foot Exam [facility] Start: 10-09-2023 End: 10-09-2023 Patient encounter procedure 10/09/2023 2:00 PM EDT Office Visit [facility] [address] [facility] [place] [phone] Toya Roberson CNP [address] [place], [place] [phone] [facility] Start: 10-03-2023 Hemoglobin A1c measurement A1C [facility] Start: 09-14-2023 End: 04-09-2024 Comprehensive metabolic 2000 panel - Serum or Plasma Comprehensive Metabolic Panel Lab Routine Type 2 diabetes mellitus with hyperglycemia, with long-term current use of insulin (HCC) Expected: 09/14/2023, Expires: 04/09/2024 [facility] Work Phone: Comment on above: Expected: 09/14/2023 , Expires: 04/09/2024 Start: 09-14-2023 End: 04-09-2024 Hemoglobin A1c/Hemoglobin.total in Blood Hemoglobin A1c Lab Routine Type 2 diabetes mellitus with hyperglycemia, with long-term current use of insulin (HCC) Expected: 09/14/2023, Expires: 04/09/2024 [facility] Comment on above: Expected: 09/14/2023 , Expires: 04/09/2024 Start: 09-14-2023 End: 04-09-2024 Thyrotropin [Units/volume] in Serum or Plasma TSH Lab Routine Type 2 diabetes mellitus with hyperglycemia, with long-term current use of insulin (HCC) Expected: 09/14/2023, Expires: 04/09/2024 [facility] Comment on above: Expected: 09/14/2023 , Expires: 04/09/2024 Start: 09-14-2023 End: 04-09-2024 Thyroxine (T4) free [Mass/volume] in Serum or Plasma T4, Free Lab Routine Type 2 diabetes mellitus with hyperglycemia, with long-term current use of insulin (HCC) Expected: 09/14/2023, Expires: 04/09/2024 [facility] Comment on above: Expected: 09/14/2023 , Expires: 04/09/2024 Start: 04-09-2023 End: 04-09-2023 Patient encounter procedure 04/09/2023 9:45 AM EDT Office Visit [facility] [address] [facility] Medical [place] [address] Vaishali Mendez, QUE [address] [place] [address] [facility] Start: 02-17-2023 Hemoglobin A1c measurement A1C [facility] Start: 02-13-2023 End: 12-09-2023 Complete blood count with white cell differential, manual CBC and Differential Lab Routine Type 2 diabetes mellitus with hyperglycemia, with long-term current use of insulin (HCC) Expected: 02/13/2023, Expires: 12/09/2023 [facility] Comment on above: Expected: 02/13/2023 , Expires: 12/09/2023 Start: 02-13-2023 End: 12-09-2023 Comprehensive metabolic 2000 panel - Serum or Plasma Comprehensive Metabolic Panel Lab Routine Type 2 diabetes mellitus with hyperglycemia, with long-term current use of insulin (HCC) Expected: 02/13/2023, Expires: 12/09/2023 [facility] Work Phone: Comment on above: Expected: 02/13/2023 , Expires: 12/09/2023 Start: 02-13-2023 COVID-19 Vaccine () COVID-19 Vaccine () [facility] Start: 02-13-2023 End: 12-09-2023 Hemoglobin A1c/Hemoglobin.total in Blood Hemoglobin A1c Lab Routine Type 2 diabetes mellitus with hyperglycemia, with long-term current use of insulin (HCC) Expected: 02/13/2023, Expires: 12/09/2023 [facility] Comment on above: Expected: 02/13/2023 , Expires: 12/09/2023 Start: 02-13-2023 Influenza vaccination [facility] Start: 02-13-2023 End: 12-09-2023 Lipid 1996 panel - Serum or Plasma Lipid Panel Lab Routine Type 2 diabetes mellitus with hyperglycemia, with long-term current use of insulin (HCC) Expected: 02/13/2023, Expires: 12/09/2023 [facility] Comment on above: Expected: 02/13/2023 , Expires: 12/09/2023 Start: 02-13-2023 End: 12-09-2023 Microalbumin measurement, urine, quantitative Microalbumin/Creatinin e Ratio, UR Random Lab Routine Type 2 diabetes mellitus with hyperglycemia, with long-term current use of insulin (HCC) Expected: 02/13/2023, Expires: 12/09/2023 [facility] Comment on above: Expected: 02/13/2023 , Expires: 12/09/2023 Start: 02-13-2023 End: 12-09-2023 Thyrotropin [Units/volume] in Serum or Plasma TSH Lab Routine Type 2 diabetes mellitus with hyperglycemia, with long-term current use of insulin (HCC) Expected: 02/13/2023, Expires: 12/09/2023 [facility] Comment on above: Expected: 02/13/2023 , Expires: 12/09/2023 Start: 02-13-2023 End: 12-09-2023 Thyroxine (T4) free [Mass/volume] in Serum or Plasma T4, Free Lab Routine Type 2 diabetes mellitus with hyperglycemia, with long-term current use of insulin (HCC) Expected: 02/13/2023, Expires: 12/09/2023 [facility] Comment on above: Expected: 02/13/2023 , Expires: 12/09/2023 Start: 12-30-2022 End: 12-30-2022 Patient encounter procedure 12/30/2022 1:45 PM EDT Office Visit [facility] [address] [place] [address] Office [facility], 2nd [place] [address] Maryanne Nuñez, FORMING PROCESS LINE WORKER [address] [facility] [address] [place] [address] [facility] Start: 11-21-2022 End: 11-21-2022 Patient encounter procedure 11/21/2022 9:15 AM EDT Office Visit [facility] [place] [address] [place] [phone] Vaishali Mendez, FORMING PROCESS LINE WORKER [address] [place] [address] [facility] [place] Start: 09-06-2022 End: 06-08-2023 MR Brain With And Without Contrast MR Brain With And Without Contrast Imaging Routine Meningioma (HCC) Partial seizure disorder (HCC) Expected: 09/06/2022, Expires: 06/08/2023 [facility] Work Phone: Comment on above: Expected: 09/06/2022 , Expires: 06/08/2023 Start: 09-04-2022 Hemoglobin A1c measurement A1C [facility] Start: 04-17-2021 Pneumococcal vaccination Pneum ococcal Vaccine Age 65+ (2 of 2 - PPSV23) [facility] Start: 04-01-2021 COVID-19 Vaccine (3 - Pfizer risk series) COVID-19 Vaccine (3 - Pfizer risk series) [facility] Start: 10-16-2020 HbA1c (Bld) [Mass fraction] A1C [facility] Start: 06-12-2020 Pneumococcal vaccination PNEUM OCOCCAL VACCINE SERIES (2 of 2 - PPSV23 or PCV20) [facility] Start: 06-12-2020 Pneumococcal Vaccine : Age 65+ (2 - PPSV23 if available, else PCV20) Pneumococcal Vaccine: Age 65+ (2 - PPSV23 if available, else PCV20) [facility] Start: 06-12-2020 Pneumococcal Vaccine : Age 65+ (2 - PPSV23 or PCV20) Pneumococcal Vaccine: Age 65+ (2 - PPSV23 or PCV20) [facility] Start: 06-12-2020 Pneumococcal Vaccine : Age 65+ (2 of 2 - PPSV23 or PCV20) Pneumococcal Vaccine: Age 65+ (2 of 2 - PPSV23 or PCV20) [facility] Start: 02-14-2020 Influenza vaccinatio n given Sequential Influenza Vaccine (#1) [facility] Start: 2016 Fall risk assessment Falls Risk Asse ssment [facility] Start: 2016 Pneumococcal vaccination Pneum ococcal Vaccine Age 65+ (1 of 2 - PCV13) [facility] Start: 2011 Respiratory Syncytia l Virus Immunization: Risk, 60-74 Risk, or 75+ (1 - Risk 60-74 years 1-dose series) Respiratory Syncytial Virus Immunization: Risk, 60-74 Risk, or 75+ (1 - Risk 60-74 years 1-dose series) [facility] Start: 2011 RSV VACCINE (1 - 1-d ose 60+ series) RSV VACCINE (1 - 1-dose 60+ series) [facility] Start: 2001 Administration of he rpes zoster vaccine Zoster Vaccines (1 of 2) [facility] Start: 2001 Screening for malign ant neoplasm of colon [facility] Start: 2001 Zoster vaccine hzv l apolonia for subcutaneous use ZOSTER (SHINGLES) VACCINE (1 of 2) [facility] Start: 1996 Screening for malign ant neoplasm of colon COLORECTAL CANCER SCREENING DISCUSSION [facility] Start: 1991 Lipid panel LIPID SCREENING [facility] Start: 1991 Screening for malign ant neoplasm of breast [facility] Start: 1972 Screening for malign ant neoplasm of cervix CERVICAL CANCER SCREENING DISCUSSION [facility] Start: 1970 Administration of he rpes zoster vaccine Zoster Vaccines (1 of 2) [facility] Start: 1970 Third diphtheria, tetanus and acellular pertussis (DTaP) vaccination TDAP (ADULT) [facility] Start: 1969 Hepatitis C antibody , confirmatory test Hepatitis C Screening [facility] Start: 1969 Hepatitis C screening Hepatitis C Sc reening [facility] Start: 1967 COVID-19 Vaccine (1 of 2) COVID-19 Vaccine (1 of 2) [facility] Start: 1963 Adolescent depressio n screening assessment Depression Screening (PHQ9) [facility] Start: 1963 Depression screening using PHQ-9 (Patient Health Questionnaire 9) score [facility] Start: 1961 Albumin DL <= 20 mg/ L (U) [Mass/Vol] Urine Microalbumin [facility] Start: 1961 Diabetic foot examination Foot Exam [facility] Start: 1961 Glaucoma screening [facility] Start: 1961 Ophthalmic examinati on and evaluation Ophthalmology Exam [facility] Start: 1961 Urine screening for protein Urine Microalbumin [facility] Start: 1954 History and physical examination, annual for health maintenance Wellness Visit [facility] Start: 1954 Medicare Wellness Visit Medica [facility] Wellness Visit [facility] Start: 1951 Fall risk assessment Falls Risk Asse ssment [facility] Start: 1951 Hepatitis C screening HEPATITI S C VIRUS SCREENING [facility] Start: 1951 Screening for malign ant neoplasm of colon [facility] Start: 1951 Screening for osteoporosis [facility] Start: 1951 Screening mammography Mammogram [facility] Start: 1951 Tetanus vaccination [facility] Bacteria identified in Unspecified specimen by Aerobe culture Urine Aerobic Culture Microbiology Routine 06/06/2022 7:20 PM EST [facility] Work Phone: End: 11-14-2023 Comprehensive metabolic 2000 panel - Serum or Plasma Comprehensive Metabolic Panel Lab Routine Type 2 diabetes mellitus with hypoglycemia without coma, with long-term current use of insulin (HCC) 1 Occurrences starting 11/13/2022 until 11/14/2023 [facility] Comment on above: 1 Occurrences starti ng 11/13/2022 until 11/14/2023 End: 11-14-2023 Hemoglobin A1c/Hemoglobin.total in Blood Hemoglobin A1c Lab Routine Type 2 diabetes mellitus with hypoglycemia without coma, with long-term current use of insulin (HCC) 1 Occurrences starting 11/13/2022 until 11/14/2023 [facility] Work Phone: Comment on above: 1 Occurrences starti ng 11/13/2022 until 11/14/2023 Immunizations Immunization Date Immunization Notes Care Provider Didier guevara 04-17-2020 influenza, injectabl e, quadrivalent, preservative free Emir Orozco MD Work Phone: [facility] 04-17-2020 pneumococcal conjuga te vaccine, 13 valent Emir Orozco MD Work Phone: [facility] 04-17-2020 influenza virus vaccine, unspecified formulation Vaishali Mendez CNP Work Phone: [facility] Payers Date Payer Category Payer Self-pay 2024 Medicare [id number] 2013 Medicare [id number] 2013 Medicare MEDICARE MEDICAR E PART A & B [id number] 2013-Present [place] [id number] 2013 Medicare [id number] 2013 Medicare [id number] 1950 Unknown [id number] [id number]. 2.900 1950 Unknown [id number] [id number]. 2.900 1950 Unknown [id number] [id number]. 2.903 1950 Unknown [id number] 2.16.840.1.831581.3.579. 2.903 1950 Unknown [id number] 2.16.840.1.940379.3.579. 2.903 1950 Unknown [id number] 2.16.840.1.539666.3.579. 2.983 1950 Unknown [id number] 2.16.840.1.355041.3.579. 2.903 1950 Unknown [id number] 2.16.840.1.235251.3.579. 2.903 For Life--Medicare Supplement FOR LIFE [id number] FOR L LOUISE [id number] Effective for all dates [id number] Unknown [id number] Unknown [id number] [id number]. [id number] Unknown [id number] Unknown [id number] 2.840.1.882858.3.579. 2.462 Unknown [id number] [id number]. 2.462 Social History Date Type Detail Facility Tobacco smoking stat [facility] Unknown if ever smoked [facility] Start: 1950 Sex Assigned At Not on file [facility] Start: 04-18-2020 End: 12-30-2022 Tobacco smoking status NHIS Never smoker [facility] Start: 04-18-2020 End: 12-30-2022 Tobacco use and exposure Never used [facility] Start: 04-18-2020 End: 05-16-2024 Alcohol intake Lifetime non-drinker (finding) [facility] Start: 04-17-2020 End: 05-29-2020 History SDOH Alcohol Frequency 1 [facility] Start: 05-27-2022 End: 06-06-2022 Exposure to SARS-CoV-2 (event) Not sure [facility] Start: 05-29-2020 End: 05-16-2024 History of Social function [facility] Start: 05-29-2020 End: 05-16-2024 Alcohol Use Disorder Identification Test - Consumption [AUDIT-C] [facility] How often to you hav e a drink containing alcohol? Never [facility] Average Number of Drinks Not on file [facility] History of tobacco use Passive smoker [facility] Start: 03-31-2024 Alcoholic beverage intake Current drinker of alcohol (finding) [facility] Start: 03-31-2024 Alcohol Comment rare per pt [facility] Start: 02-17-2024 Gender identity Identifies as female gender (finding) [facility] Start: 02-17-2024 Sexual orientation Heterosexual (finding) [facility] Medical Equipment Procedure Code Equipment Code Equipment Origin al Text Equipment Identifier Dates [id number] Start: 06-08-2022 Use as directed to inject insulin twice per day . [id number] Start: 03-24-2024 Clinical Notes 06-06-2022 to 04-21-2025 Patient Christiano Gee MD - 05/16/2024 2:30 PM Selvin Orozco MD - 03/31/2024 1:30 PM EDTPatient Christiano Gee MD - 02/17/2024 10:03 AM EDT Note Date & Type Note Facility 04-21-2025 Note [facility] 04-20-2025 Note [facility] 04-19-2025 Note [facility] 04[facility]18-2025 Note [facility] 04[facility]18-2025 Note [facility] 04-17-2025 Note [facility] 04-16-2025 Note [facility] 04[facility]16-2025 Note [facility] 04-15-2025 Note [facility] 04-15-2025 Note [facility] 04-14-2025 Note [facility] 04-14-2025 Note [facility] 04-14-2025 Note [facility] 04-14-2025 Note [facility] 04-14-2025 Note [facility] 04-13-2025 Note [facility] 04-13-2025 Note [facility] 04-13-2025 Note [facility] 04-12-2025 Note [facility] 04-11-2025 Note [facility] 04-11-2025 Note [facility] 04-11-2025 Note [facility] 04-10-2025 Note [facility] 04-10-2025 Note [facility] 04-09-2025 Note [facility] 04-09-2025 Note [facility] 04-09-2025 Note [facility] 05-16-2024 Instructions Christiano Fletcher MD - 05/16/2024 2:36 PM EST Please change the 70/30 insulin to 4 units before breakfast and 4 units before supper. documented in this encounter [facility] 05-16-2024 History of Present illness Narrative Images from the original note were not included. [facility] [address]) [facility] [address] [facility] [address] Chief Complaint Patient presents with [...] walks every day 15 min Allergies: Allergies: [place], Poison rhonda extract, Poison oak extract, and Penicillins Current Outpatient Medications Medication Instructions acetaminophen (TYLENOL) 325 mg, Oral, Every 6 hours PRN amLODIPine (NORVASC) 10 mg, Oral, Daily qziqbuu-qbvsbahoxvkzs-mdstuxdd (EXCEDRIN MIGRAINE) 250-250-65 mg per tablet 1 [...] exam. 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 BP usually high before her visits; she [...] Christiano Fletcher MD documented in this encounter [facility] 05-16-2024 Note [facility] [address]) [facility] [address] [facility] [address] Chief Complaint Patient presents with [...] walks every day 15 min Allergies: Allergies: [place], Poison rhonda extract, Poison oak extract, and Penicillins Current Outpatient Medications Medication Instructions acetaminophen (TYLENOL) 325 mg, Oral, Every 6 hours PRN amLODIPine (NORVASC) 10 mg, Oral, Daily tyvpcal-mvaisfljshfjo-feqgkvxc (EXCEDRIN MIGRAINE) 250-250-65 mg per tablet 1 [...] Final Bicarbonate Date (more content not included)... [facility] 03-31-2024 History of Present illness Narrative New Patient Visit Hilaria Lyons [id number] 1950 03/31/2024 Chief Complaint Patient presents with [...] and Sexual Activity Drug Use Never Allergies: [place], Extract of poison rhonda, Extract of poison oak, Latex, and Penicillins Home Medications: Current Outpatient Medications: Acetaminophen 325 MG tablet, Take 1 tablet by mouth Every 6 hours as needed., Disp: , Rfl: amLODIPine 10 MG tablet, Take 1 tablet by mouth daily., Disp: 90 tablet, Rfl: 3 mskjjsy-ridyewintatrr-wonuofdu 250-250-65 MG tablet, Take 1 tablet by [...] Emir Orozco MD documented in this encounter [facility] 02-17-2024 Instructions Christiano Fletcher MD - 02/17/2024 10:13 AM EDT Humulin 70/30: 6 units at breakfast; 4 units at supper documented in this encounter [facility] 02-17-2024 Note [facility] [address]) [facility] [address] [facility] [address] Chief Complaint Patient presents with [...] walks every day 15 min Allergies: Allergies: [place], Poison rhonda extract, Poison oak extract, and Penicillins Current Outpatient Medications Medication Instructions acetaminophen (TYLENOL) 325 mg, Oral, Every 6 hours PRN amLODIPine (NORVASC) 10 mg, Oral, Daily hyfngyn-bpjppugjpnvuc-qeikadys (EXCEDRIN MIGRAINE) 250-250-65 mg per tablet 1 [...] Anion Gap D (more content not included)... [facility] 02-17-2024 History of Present illness Narrative Images from the original note were not included. [facility] [address]) [facility] [address] [facility] [address] Chief Complaint Patient presents with [...] walks every day 15 min Allergies: Allergies: [place], Poison rhonda extract, Poison oak extract, and Penicillins Current Outpatient Medications Medication Instructions acetaminophen (TYLENOL) 325 mg, Oral, Every 6 hours PRN amLODIPine (NORVASC) 10 mg, Oral, Daily zauikem-eotpvkvzlijlo-gwnxmoau (EXCEDRIN MIGRAINE) 250-250-65 mg per tablet 1 [...] due for retinal exam. 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 Needs a lipid panel and microalbumin before [...] Christiano Fletcher MD documented in this encounter [facility] 04-09-2023 History of Present illness Narrative Images [...] (10 mg total) by mouth daily . inwguqt-bqzhjvopwxixf-jglomrww (EXCEDRIN MIGRAINE) 250-250-65 mg per tablet, Take [...] within last 12 months: yes Date: 12/05 Show Card Writer/Tool Maintenance Worker: Dr. Diaz Other Ophthalmologic Conditions: S/P Right [...] foot exam: 04/09/23 Follows with Podiatry: Yes Shipyard Helper: Gentle foot care. History of foot ulceration: [...] Call if BG consistently <70 or >250. [phone] Patient has been checking blood glucoses 2 [...] Vaishali Mendez CNP documented in this encounter [facility] 12-08-2022 History of Present illness Narrative Images [...] (10 mg total) by mouth daily . jppgjdq-ydmnaaaqghonz-rprcerrq (EXCEDRIN MIGRAINE) 250-250-65 mg per tablet, Take [...] within last 12 months: yes Date: 12/05 Show Card Writer/Tool Maintenance Worker: Dr. iDaz Other Ophthalmologic Conditions: S/P Right cataract extraction [...] foot exam: 12/08/22 Follows with Podiatry: Yes Shipyard Helper: Gentle foot care. History of foot ulceration: [...] Call if BG consistently <70 or >250. [phone] Patient has been checking blood glucoses 2 [...] Vaishali Mendez CNP documented in this encounter [facility] 06-08-2022 Hospital Discharge instructions Elisa Collins MD - 06/08/2022 10:56 AM EST Check blood glucose 2 times a day before breakfast and supper. Record blood glucoses and report glucoses to Dr. Collins's office at [phone] once a week for insulin dose adjustment. Call sooner if blood glucoses are consistently running less than 80 or greater than 250. Call to schedule follow up appointment with Dr. Collins at [phone]. Appointment should be in 4-6 weeks Keiry Birmingham OT - 06/07/2022 11:21 AM EST Please issue to pt at discharge: LINEMAN A CLASS documented in this encounter [facility] 06-08-2022 History of Present illness Narrative Neurology Inpatient Follow Up Note [facility] Date of Service: 06/08/22 Service Type: Inpatient Consultation follow up Patient: Hilaria Lyons Date of : 1950 (72 y.o.) Referring Provider: Refer to consult order in electronic medical record PCP: Jaime Shine MD Assessment ASSESSMENT: Hilaria Lyons is a 72 y.o. female who presented to [facility] on 06/06/2022 with slurred speech. Patient [...] after discharge. Fabian Mccabe MD Staff Neurologist [facility] [address] [id number], [facility] [address] Clinic Fax: [phone] 06/08/22 Parts of this note may have [...] and does not use drugs. Allergies: Allergies: [place], Poison rhonda extract, Poison oak extract, and [...] MARY JO Unable to Assess COORDINATION: Coordination Kqoclw-zd-Mvyh: A little slow and cautious but no overt ataxia is appreciated Holley Finger taps: normal Coordination Kgrb-Hnwt-Ebvq: normal Diadochokinesis: normal STANCE AND GAIT: Base/Stance: [...] and neck shows moderate stenosis in bilateral snack steward but no other significant stenosis or occlusions. [...] 50% of that time was spent on vwpj-cp-xmmc counseling and/or coordination of care. This includes discussions with patient/family as well as with consulting care providers, regarding clinical course, prognosis, treatment alternatives, expected outcomes of medications and their side effects. Patient ID: Patient Name: Hilaria Lyons Admit Date: 06/06/2022 MR #: [id number] : 1950 Current location: [facility] Physicians: Jaime Shine MD (Family); Dr. London [...] could get Novolin reli-on 70/30 pens at [facility], which are more affordable for her. At follow up in office, can apply for patient assistance from [employer] or [employer]. 25 minutes spent with pt today Blood [...] start Novolin Reli-on 70/30 insulin available at [facility], 20 U AM breakfast/16 U PM before dinner. Continue metformin, but stop gllimepiride. Check BG BID and record; report to Dr. Collins office q week until follow up. Call to schedule follow up appointment with Dr. Collins at [phone]. Appointment should be in 4-6 weeks. . 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 [...] ketones 9 WBCs Allergies: Allergies Allergen Reactions [place] Hives Poison Rhonda Extract Poison [place] Extract Unknown Penicillins GI Intolerance Home Medications: [...] History: Diagnosis Date Arthritis CVA (cerebrovascular accident) ([facility]) 06/06/2022 Diabetes mellitus (HCC) Hypertension Obesity [...] this patient with you. Elisa Collins MD [facility] PROGRESS NOTE Assessment and Plan Hilaria Lyons [...] Healthcare Provider;Patient Not Available Visit By Staff Armament Mechanic Visit Progression Attempt Visit Requested By Armament Mechanic Initiated Visit Source Automated Page Visit Type Crisis Visit Visit Circumstances and Events Stroke Alert Visit Length (minutes) 15 Patient's Response to Pastoral Care (Did not participate) Visit Planning PRN Spiritual Assessment Not assessed during visit Latter Day Assessment Not assessed during this visit Family assessment provided? Unable to asess during this visit Signature: Silvina Arabmula MDiv Staff Armament Mechanic [facility]: On-Call / Office / Alexis On-Call Armament Mechanic Triangle: Armament Mechanic Hotline / Vocjoe On-Call Armament Mechanic She/Her/Hers documented in this encounter [facility] 06-08-2022 Note Formatting of this n ote might be different from the original. PHYSICAL THERAPY VISIT VARIANCE NOTE Spoke to pt and she reports independence with transfers and gait denying need for PT needs at this time. Will DC PT. [facility] 06-08-2022 Miscellaneous Notes PHYSICAL THERAPY VISIT VARIANCE [...] was emergently consulted by Emergency Department at [place] for a stroke alert evaluation. 72-year-old female with a past medical history of hypertension, obesity, and type 2 diabetes who presents to [place] ED for evaluation of trouble talking/slurred speech. [...] vertigo, chest pain, SOB. On arrival to [place] ED the patient had right facial droop [...] SQ heparin Henry Melendez MD Cerebrovascular Neurology [facility] documented in this encounter [facility] 06-08-2022 Hospital course Narrative [facility] DISCHARGE SUMMARY -- [facility] Hilaria Lyons Admitted: 06/06/2022 Discharge Date: [...] Dr. Collins consulted - restarted glargine with [facility] insulin Pt pays for her glargine herself [...] 06/08/22, 10:22 AM documented in this encounter [facility] 06-07-2022 Note Formatting of this n ote [...] agents depending on how her BP does. [facility] 06-07-2022 Consult note Associated Order (s): IP CONSULT TO NEUROLOGY; IP CONSULT TO NEUROLOGY Neurology Inpatient Consult [facility] Date of Service: 06/07/22 Admit Date: 06/06/2022 Service Type: New Patient Consultation Patient: Hilaria Lyons Date of : 1950 (72 y.o.) Referring Provider: Refer to consult order in electronic medical record PCP: Jaime Shine MD Assessment ASSESSMENT: Hilaria Lyons is a 72 y.o. female who presented to [facility] on 06/06/2022 with slurred speech. Patient [...] CTA shows some moderate stenosis in bilateral snack steward probably related to atherosclerotic plaque, but no [...] be related to atherosclerotic disease in her snack steward depending on location of the infarct. Hyperglycemia [...] Prevention Clinic Fabian Mccabe MD Staff Neurologist [facility] [address] [facility] [id number], [facility] [address] [facility] Fax: [phone] 06/07/22 Parts of this note may have been dictated using [employer], a speech-recognition software. Syntax errors and sound-alike [...] and does not use drugs. Allergies: Allergies: [place], Poison rhonda extract, Poison oak extract, and [...] MARY JO Unable to Assess COORDINATION: Coordination Manhnb-vb-Pumf: A little slow and cautious but no overt ataxia is appreciated Holley Finger taps: normal Coordination Pamd-Bkam-Egua: normal Diadochokinesis: normal STANCE AND GAIT: Base/Stance: [...] and neck shows moderate stenosis in bilateral snack steward but no other significant stenosis or occlusions. [...] 50% of that time was spent on kbso-ec-uncc counseling and/or coordination of care. This includes discussions with patient/family as well as with consulting care providers, regarding clinical course, prognosis, treatment alternatives, expected outcomes of medications and their side effects. [facility] 06-07-2022 Consult note Associated Order (s): IP CONSULT TO NEUROLOGY; IP CONSULT TO NEUROLOGY Neurology Inpatient Consult [facility] Date of Service: 06/07/22 Admit Date: 06/06/2022 Service Type: New Patient Consultation Patient: Hilaria Lyons Date of : 1950 (72 y.o.) Referring Provider: Refer to consult order in electronic medical record PCP: Jaime Shine MD Assessment ASSESSMENT: Hilaria Lyons is a 72 y.o. female who presented to [facility] on 06/06/2022 with slurred speech. Patient [...] CTA shows some moderate stenosis in bilateral snack steward probably related to atherosclerotic plaque, but no [...] be related to atherosclerotic disease in her snack steward depending on location of the infarct. Hyperglycemia [...] Prevention Clinic Fabian Mccabe MD Staff Neurologist [facility] [address] [facility] [id number], [facility] [address] Clinic Fax: [phone] 06/07/22 Parts of this note may have been dictated using [employer], a speech-recognition software. Syntax errors and sound-alike [...] and does not use drugs. Allergies: Allergies: [place], Poison rhonda extract, Poison oak extract, and [...] MARY JO Unable to Assess COORDINATION: Coordination Urcfff-ho-Czus: A little slow and cautious but no overt ataxia is appreciated Holley Finger taps: normal Coordination Azyg-Raqe-Rzrt: normal Diadochokinesis: normal STANCE AND GAIT: Base/Stance: [...] and neck shows moderate stenosis in bilateral snack steward but no other significant stenosis or occlusions. [...] 50% of that time was spent on qrih-gq-njvv counseling and/or coordination of care. This includes [...] 10 days DME Recommendation: Adaptive equipment kit (a auxiliary) DME Rationale: Patient's condition creates an increased [...] of function. The patient's compliance is a occupational therapy aide to return to prior level of function. [...] Function Receives Help From: Family Level of [place] - Transfers/Ambulation/Mobility: Independent with functional transfers, Independent with household ambulation, Independent with community ambulation Level of [place] - ADLs: Independent Level of [place] - Homemaking: Independent Driving: Patient drives Subjective Impression - Prior Function: Pt reports nieces and daughters can assist her as able Past Medical History: Diagnosis Date Arthritis CVA (cerebrovascular accident) ([facility]) 06/06/2022 Diabetes mellitus (HCC) Hypertension Obesity [...] for Referral: Stroke / neuro Primary Language: Bangladeshi 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 ASSET COORDINATOR Caregiver Readiness: ASSET COORDINATOR Caregiver Readiness Working toward discharge home: Yes ASSET COORDINATOR Caregiver Training: Completed (patient own caregiver) Speech [...] to BSE: Regular, Thin liquid Primary Language: Bangladeshi Baseline Assessment: Subjective Impression: Alert, Pleasant Mood, [...] and performance Explain Personal Factors: good insight ASSET COORDINATOR Caregiver Readiness: ASSET COORDINATOR Caregiver Readiness Working toward discharge home: Yes ASSET COORDINATOR Caregiver Training: Completed (patient own caregiver) Speech [...] Hilaria Lyons Admit Date: 06/06/2022 MR #: [id number] : 1950 Current location: [facility] Physicians: Jaime Shine MD (Family); Dr. 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 [...] ketones 9 WBCs Allergies: Allergies Allergen Reactions [place] Hives Poison Rhonda Extract Poison [place] Extract Unknown Penicillins GI Intolerance Home Medications: [...] Elisa Collins MD documented in this encounter [facility] 06-07-2022 Consult note Formatting of th is [...] 10 days DME Recommendation: Adaptive equipment kit (a auxiliary) DME Rationale: Patient's condition creates an increased [...] of function. The patient's compliance is a occupational therapy aide to return to prior level of function. [...] Function Receives Help From: Family Level of [place] - Transfers/Ambulation/Mobility: Independent with functional transfers, Independent with household ambulation, Independent with community ambulation Level of [place] - ADLs: Independent Level of [place] - Homemaking: Independent Driving: Patient drives Subjective [...] completion of Occupational Therapy Plan of Care. 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 ASSET COORDINATOR Caregiver Readiness: ASSET COORDINATOR Caregiver Readiness Working toward discharge home: Yes ASSET COORDINATOR Caregiver Training: Completed (patient own caregiver) Speech [...] completion of Speech Pathology Plan of Care [facility] 06-07-2022 Consult note Formatting of th is [...] to BSE: Regular, Thin liquid Primary Language: Bangladeshi Baseline Assessment: Subjective Impression: Alert, Pleasant Mood, [...] and performance Explain Personal Factors: good insight ASSET COORDINATOR Caregiver Readiness: ASSET COORDINATOR Caregiver Readiness Working toward discharge home: Yes ASSET COORDINATOR Caregiver Training: Completed (patient own caregiver) Speech [...] completion of Speech Pathology Plan of Care. [facility] 06-07-2022 Consult note Associated Order (s): IP CONSULT TO ENDOCRINOLOGY Patient ID: Patient Name: Hilaria Lyons Admit Date: 06/06/2022 MR #: [id number] : 1950 Current location: [facility] Physicians: Jaime Shine MD (Family); Dr. 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 [...] ketones 9 WBCs Allergies: Allergies Allergen Reactions [place] Hives Poison Rhonda Extract Poison [place] Extract Unknown Penicillins GI Intolerance Home Medications: [...] this patient with you. Elisa Collins MD [facility] 06-06-2022 Emergency department Note Pt's daughter Amina update on pts status, pt [facility] 06-06-2022 Emergency department Note Pt's daughter Amina [...] CT for CTA AMINA BETTS RN (DAUGHTER) [phone] Bed: 35 Expected date: Expected time: Means of arrival: Comments: CHASE JEFFREY Pt was brought in by EMS for concerns of a stroke. Pt reports aphasia and right arm numbness/weakness starting at 2PM today. Pt also has right sided facial droop. Pt has a LAMS score of 2. Odilia Goodman at [facility], this RN called stroke alert at this time. documented in this encounter [facility] 06-06-2022 Emergency department Note Hourly rounding assessment completed on the patient. [x] Patient updated on plan of care [x] All comfort needs addressed [x] Patient updated on duration of visit All questions answered, patient denies further needs. Call light within reach. [facility] 06-06-2022 History and physical note [facility] HISTORY AND PHYSICAL -- [facility] Patient Name: Hilaria Lyons : 1950 MR #: [id number] Admit Date: 06/06/2022 Physicians: Jaime Shine MD [...] Information I have reviewed the patient's allergies. [place], Poison rhonda extract, Poison oak extract, and [...] 06/07/22 12:06 AM Transcriptions 06/07/22 12:06 AM [facility] 06-06-2022 History and physical note [facility] HISTORY AND PHYSICAL -- [facility] Patient Name: Hilaria Lyons : 1950 MR #: [id number] Admit Date: 06/06/2022 Physicians: Jaime Shine MD [...] Information I have reviewed the patient's allergies. [place], Poison rhonda extract, Poison oak extract, and [...] 06/07/22 12:06 AM documented in this encounter [facility] 06-06-2022 Emergency department Note Daughter called asking for an update on patient. This PSA notified daughter that patient is being admitted and she can call back later to find out what bed number [facility] 06-06-2022 Note Formatting of this n ote [...] any errors, but occasionally words are mis-transcribed.) [facility] Work Phone: 06-06-2022 Note Associated Order(s): ECG 12 Lead ECG 12 Lead Date/Time: 06/06/2022 7:02 PM Performed by: Jaime Coats DO Authorized by: Jaime Coats DO Interpreted by ED attending physician Comparison: not compared with previous ECG Previous ECG: no previous ECG available Rhythm: sinus rhythm BPM: 72 Conduction: conduction normal ST Segments: ST segments normal T Waves: T waves normal [facility] 06-06-2022 Note Formatting of this n ote [...] independent and exclusive of separate billable procedures. [facility] 06-06-2022 Emergency department Note Pt back to CT for CTA [facility] 06-06-2022 Note Formatting of this n ote might be different from the original. [facility] Assessement Note History of Present Illness: I was emergently consulted by Emergency Department at [place] for a stroke alert evaluation. 72-year-old female with a past medical history of hypertension, obesity, and type 2 diabetes who presents to [place] ED for evaluation of trouble talking/slurred speech. [...] vertigo, chest pain, SOB. On arrival to [place] ED the patient had right facial droop [...] Weakness pattern is not consistent with a Granad's palsy. Patient was not candidate for IV [...] SQ heparin Henry Melendez MD Cerebrovascular Neurology [facility] Work Phone: 06-06-2022 Emergency department Note AMINA BETTS RN (DAUGHTER) [phone] [facility] 06-06-2022 Emergency department Note Pt to CT [facility] 06-06-2022 Emergency department Note Bed: 35 Expected date: Expected time: Means of arrival: Comments: CHASE MURPHY [facility] 06-06-2022 Emergency department Triage note Pt was brought in by EMS for concerns of a stroke. Pt reports aphasia and right arm numbness/weakness starting at 2PM today. Pt also has right sided facial droop. Pt has a LAMS score of 2. Odilia Goodman at [facility], this RN called stroke alert at this time. [facility] Evaluation note Diagnosis Partial seizure disorder (HCC)- [...] of cerebral meninges [facility] Diagnosis Type 2 diabetes mellitus with [...] of cerebral meninges [facility] Tachycardia- Primary Unspecified tachycardia Essential [...] mellitus (HCC)- Primary documented in this encounter [facility] for referral (narrative)* Consultation (Routine) - New Request Specialty Diagnoses / Procedures Referred By Aliyah olea Referred To Contact Neurology Diagnoses Seizure disorder Meningioma Emir Orozco MD [address] [place] [address] Referral ID Status Reason Start Date Expiration Date V isits Requested Visits Authorized [id number] New Request 03/31/2024 04/25/2025 1 1 [facility] Summary Purpose Family History No Family History Records FoundNo Family History Records FoundNo Family History Records FoundNo Family History Records FoundNo Family History Records FoundNo Family History Records FoundNo Family History Records FoundNo Family History Records Found Advance Directives No Advanced Directives Records FoundDocuments on File Type Date Recorded Patient Firer Automatic Stoker Expl anation Advance Directives and Livin g Will 04/17/2020 4:27 PM Latest Code Status on File Code Status Date Activated Date Inactivated Comments Full Code - Unverified 04/17/2020 9:20 PM 04/18/2020 7:2 7 PM Documents on File Type Date Recorded Patient Firer Automatic Stoker Expl anation Advance Directives and Livin g [...] HOSPITALIST DISCHARGE SUMMARY Patient: Hilaria Lyons Account: [id number] Admitted: 04/17/2020 Discharge Date/Time: 04/18/2020 Clinical Summary [...] Units 04/18/20 0432 TSH mcIU/mL 0.99 Allergies: [place], Poison rhonda extract, and Penicillins Discharge Diet: Diet Special; Cardiac, Diabetic; Carbohydrate Consistent 60g/meal (8077-1025 kCal equivalent) Disposition: Discharge Medications Medication List [...] These medications were sent to [facility] [address] [place] [address] [address] [facility] [address] [facility] [address] amLODIPine 10 MG tablet apixaban 5 mg Tab carvediloL 12.5 MG tablet glimepiride 4 MG tablet lisinopriL 40 MG tablet metFORMIN 1000 MG tablet Physician(s) Family: Jaime Shine MD, , Address: [address] [place] [address] / [facility] [address] Follow Up: your doctor Call in 1 day Recheck of today's visit [facility] Emergency Department [address] [facility] [address] Go to If symptoms worsen, As needed Jaime Shine MD [address] [place] [phone] Follow up Patient instructions, including activity, [...] be sent through Care Everywhere. * Hypokalemia (Bangladeshi) * Cardiac Arrhythmia (Bangladeshi) documented in this encounter History of Present [...] will be in to get Eliquis. [facility] Disposition Regulatory Documentation: Condition code 44 [...] Medicine Inpatient Follow-up 04/18/[address] [facility] Patient: Hilaria Lyons Date of : [...] (2 points) [] Vascular disease (history of MN, PAD, or aortic atherosclerosis) (1 point) SUBJECTIVE: [...] 05/29/2020 2:40 PM EST Cardiology Office Visit [facility] [address] [facility] [address] [facility] [address] Physicians: Jaime Shine MD (Family); [...] cataracts TUBAL LIGATION 1986 Allergies Allergen Reactions [place] Hives Poison Rhonda Extract Penicillins GI Intolerance [...] file Gets together: Not on file Attends hoahaoism service: Not on file Active member of [...] normal. Nursing note and vitals reviewed. EKG ([facility])(04/17/2020 1302): sinus tachycardia, with PAC (computer algorithm interpreted: atrial flutter/tachycardia with RVR, NSSTW). EKG (04/17/2020 1534): sinus tachycardia with PAC, septal infarct age undetermined. EKG (04/17/2020 31425): sinus tachycardia. Lipids (04/17/2020): Total cholesterol 198, triglycerides 118, HDL-, LDL 109 mg/dL. EKG (04/18/2020 0552): NSR. Echocardiography (04/18/2020): Normal LV cavity size and systolic function; EF 56%. Moderate concentric LVH. Grade 1 diastolic dysfunction. Trace Derrick Allan Coats MD, [facility] documented in this encounter Assessments Diagnosis Tachycardia- [...] your care team or the office at [phone]. Please include medication name, pharmacy name, and [...] With And Without Contrast Fabian Mccabe MD [facility] [address] [place] [id number] Referral ID Status Reason Start Date Expiration Date V isits Requested Visits Authorized [id number] New Request 09/06/2022 09/06/2023 1 1 Additional Source Comments INFORMATION SOURCE (unrecogn ized section and content) DATE CREATED AUTHOR 01/05/2018 [facility] DATE CREATED AUTHOR AUTHOR'S ORGANIZ ATION 06/08/2022 [facility] DATE CREATED AUTHOR AUTHOR'S ORGANIZ ATION 02/18/2024 [facility] DATE CREATED AUTHOR AUTHOR'S ORGANIZ ATION 04/03/2024 [facility] DATE CREATED AUTHOR AUTHOR'S ORGANIZ ATION 05/17/2024 [facility] DATE CREATED AUTHOR AUTHOR'S ORGANIZ ATION 04/18/2025 [facility] DATE CREATED AUTHOR AUTHOR'S ORGANIZ ATION 04/25/2025 [facility] DATE CREATED AUTHOR AUTHOR'S ORGANIZ ATION 04/26/2025 [facility] Reason for Visit (unrecogniz ed section and [...] with rapid ventricular response (HCC) Enedina James, FORMING PROCESS LINE WORKER [address] [place] [address] [facility] [address] [facility] Medical [place] [address] Reason Comments Stroke Alert Specialty Diagnoses / Procedures Referred By Contac t Referred To Contact Diagnoses Hyperglycemia Acute UTI Acute ischemic stroke (HCC) Acute CVA (cerebrovascular accident) (HCC) Referral ID Status Reason Start Date Expiration Date Visits Re quested Visits Authorized [id number] 1 1 Reason Comments Diabetes Mellitus Gap [...] H&P Notes (unrecognized sect ion and content) [facility] Medicine Inpatient H&P 04/17/[address] [facility] Patient: Hilaria Lyons Date of : [...] STATES FEELING BETTER Dr Jaime mayers @ [phone] Fernandez request. [facility] ED Physician Note: NAME: Hilraia Lyons 70 y.o. CSN: [id number] PCP: Physician No ED Course / Medical [...] type [facility]: [facility] History: Chief Complaint: Tachycardia HPI: The history [...] file Gets together: Not on file Attends hoahaoism service: Not on file Active member of [...] Procedure Abnormality Status --------- ------ CBC Auto Differential[[id number]] Abnormal Final result Please view results for these tests on the individual orders. TROPONIN XR Chest 1 View Final Result No acute cardiopulmonary abnormalities. Workstation ID: [id number] Procedures: Procedures Lucain Fernandez MD ED Physician [facility] Emergency Department (Please note that portions of [...] Shine is PCP but today she saw PATTERN GRADER, HR 130 documented in this encounter Plan [...] rhythm BPM: 116 Conduction: conduction normal normal IA interval normal QT interval Clinical impression: non-specific [...] Coats RN)0400 (Canceled Entry - Provider: Linda Holguni RN)0500 (Canceled Entry - Provider: Piedad Coats [...] PLACED TUBE OR TUBE less than 14 Yakut. To administer dissolved tablet(s) mix with 4 [...] Coats RN)0423 (Rate/Dose Change - Provider: Piedad Caots RN)0424 (Rate/Dose Verify - Provider: Piedad Coats [...] mL, Intravenous, Once in imaging, contrast, Per office secretary (Radiology) for line patency check prior to contrast administration, Starting on Thu06/06/22 at 1851, For 1 dose 185 (Given - Provider: Marv Arellano, TECHNOLOGIST) sodium chloride (PF) (NS) 0.9 % contrast line flush 80 mL (COMPLETED) 80 mL, Intravenous, Once in imaging, contrast, Per office secretary (Radiology), Starting on Thu06/06/22 at 1851, For [...]
Care Teams (unrecognized sec tion and content) Sweep Press Operator Relationship Specialty Start Date End Date Jaime Shine MD [address] [address] PCP - General Internal Medicine 04/17/20 Sweep Press Operator Relationship Specialty Start Date End Date Jaime Shine MD [address] [address] PCP - General Internal Medicine 04/17/20 Sweep Press Operator Relationship Specialty Start Date End Date Jaime Shine MD [address] [address] PCP - General Internal Medicine 04/17/20 Sweep Press Operator Relationship Specialty Start Date End Date Jaime Shine MD [address] [address] PCP - General Internal Medicine 04/17/20 Sweep Press Operator Relationship Specialty Start Date End Date Enedina James CNP [address] [address] PCP - General Family Medicine 04/09/23 Sweep Press Operator Relationship Specialty Start Date End Date Enedina James CNP [address] [address] PCP - General Family Medicine 04/09/23 Sweep Press Operator Relationship Specialty Start Date End Date Enedina James CNP [address] [address] PCP - General Family Medicine 04/09/23 Sweep Press Operator Relationship Specialty Start Date End Date Emir Orozco MD [address] [place] [address] PCP - General Family Medicine 03/31/24 Sweep Press Operator Relationship Specialty Start Date End Date No, Physician [facility] PCP - General 02/17/24 FOR RECORDS PERTAINING [...] BE BASED ON THE PRIMARY CLINICAL RECORDS. [email or web address] [facility]. provides no warranty or guarantee of the accuracy or completeness of information in this document.
--- NOTE | 2025-05-07 12:31 | PCM.HP.STD ---
[facility] Date of Admission: 05/07/25 Date of Service: 05/07/25 Chief Complaint: Shortness of breath [facility] Narrative HILARIA LYONS, is a 75 F who presents to the emergency room at [facility] after being transported in by squad from a local extended-care facility where she was undergoing skilled therapy after hospitalization for a left hip fracture. Patient normally was wearing 2 L of oxygen at the long term but over the past couple of days it has been increased to 4 L, a review of medical records from [facility] Revealed a recent echocardiogram in March of this year which showed her EF to be 51%. No significant valvular disease was noted but there was question of a ventricular thrombus. Patient is currently on Coumadin at the residential facility. Patient has no complaints of any chest discomfort. I did an extensive review of her medical records from [facility], it appears the patient was transferred to [facility] from an outside hospital in [place] after she sustained a mechanical fall with a left hip fracture, during that time at the hospital in [place] she had a cardiac workup which was significant for stress-induced ischemia, heart catheterization was done which showed multivessel disease and she was transferred for a second opinion regarding coronary artery bypass surgery to [facility]. The plan was to repair the hip fracture and then perform the revascularization later on. It was felt that the patient would do better if she went through the hip repair surgery and then rehab. Patient underwent repair of her left hip fracture with percutaneous pinning of the fracture on 04/13/2025, hospital course was complicated by postop bleeding and hypotension, patient was on a heparin infusion due to a small LV thrombus. CT scan of the left leg showed a hematoma near the operative site and the patient was transfused 2 units of packed red blood cells. It appears that the patient is on Coumadin because her insurance would not cover Eliquis. Patient will need follow-up as an outpatient with interventional cardiology for revascularization planning and heart catheterization. Workup in the emergency room included labs including a CBC which was abnormal for a white blood cell count 11.4 and hemoglobin of 10.9. Chemistry profile was remarkable for a blood sugar of 272, patient's beta natruretic peptide was elevated at 10,583, and her INR is 1.7. Chest x-ray was performed which showed evidence of vascular congestion-I reviewed past x-ray and I do not feel the patient has a pneumonia. Patient will be admitted to PCU for hypoxia from acute congestive heart failure with preserved ejection fraction-patient denies any previous history of congestive heart failure. Patient will be given IV Lasix, medications will be continued, and pulse ox will be monitored. Patient will be given extra Coumadin today and INR will be rechecked this afternoon. [facility] Medical History (Updated 05/07/25 @ 12:30 by Herminia Tovar) Epistaxis, recurrent Cataract Myocardial infarct Diabetes Osteoarthritis Sleep apnea Hypertension Home Medications ?Medication ?Instructions ?Recorded ?Last Taken ?Type acetaminophen 325 mg capsule 650 mg PO Q4H PRN fever or pain 05/07/25 Unknown History acetaminophen 500 mg capsule 1,000 mg PO Q6H PRN fever or pain 05/07/25 Unknown History acetaminophen 650 mg rectal 650 mg VT Q4H PRN fever or pain 05/07/25 Unknown History suppository albuterol sulfate 2.5 mg/3 mL 2.5 mg continuous nebulization Q8H 05/07/25 Unknown History (0.083 %) solution for nebulization PRN shortness of breath or wheezing aluminum-mag hydroxide-simethicone 30 ml PO Q4H PRN indigestion 05/07/25 Unknown History 200 mg-200 mg-20 mg/5 mL oral susp (Antacid M) amlodipine 5 mg tablet 5 mg PO DAILY 05/07/25 Unknown History aspirin 81 mg capsule 81 mg PO DAILY 05/07/25 Unknown History atorvastatin 80 mg tablet (Lipitor) 80 mg PO QHS 05/07/25 Unknown History bisacodyl 10 mg rectal suppository 10 mg VT DAILY PRN constipation 05/07/25 Unknown History cholecalciferol (vitamin D3) 1,250 1,250 mcg PO SA 05/07/25 Unknown History mcg (50,000 unit) capsule cyanocobalamin (vitamin B-12) 1,000 mcg PO DAILY 05/07/25 Unknown History 1,000 mcg capsule dextrose 40 % oral gel (Glucose 15 g PO Q15M PRN hypoglycemia 05/07/25 Unknown History Gel) ezetimibe 10 mg tablet 10 mg PO DAILY 05/07/25 Unknown History furosemide 20 mg tablet (Lasix) 20 mg PO DAILY 05/07/25 Unknown History glucagon 1 mg injection kit 1 mg IM PRN PRN hypoglycemia 05/07/25 Unknown History guaifenesin 200 mg/5 mL oral liquid 400 mg PO Q4H PRN cough 05/07/25 Unknown History hydroxyzine HCl 25 mg tablet 25 mg PO Q6H PRN anxiety 05/07/25 Unknown History insulin glargine 100 unit/mL (3 32 unit subcut .QAM 05/07/25 Unknown History mL) subcutaneous pen (Lantus Solostar U-100 Insulin) insulin lispro 100 unit/mL 1 unit subcut ACHS sliding scale 05/07/25 Unknown History subcutaneous cartridge insulin lispro 100 unit/mL 3 unit subcut TID 05/07/25 Unknown History subcutaneous cartridge magnesium hydroxide 400 mg/5 mL 30 ml PO DAILY PRN constipation 05/07/25 Unknown History oral suspension (Milk of Magnesia) metoprolol tartrate 50 mg tablet 50 mg PO BID 05/07/25 Unknown History multivitamin with iron-mineral 1 tab PO DAILY 05/07/25 Unknown History ondansetron HCl 4 mg tablet 4 mg PO Q8H PRN nausea and vomiting 05/07/25 Unknown History oxycodone 5 mg capsule 5 mg PO Q6H PRN pain 05/07/25 Unknown History polyethylene glycol 3350 17 gram 17 g PO DAILY 05/07/25 Unknown History oral powder packet (Miralax) senna-docusate sodium capsule 1 cap PO BID 05/07/25 Unknown History sodium phosphates 19 gram-7 118 ml VT DAILY PRN constipation 05/07/25 Unknown History gram/118 mL enema (Qbhoz-Zg-Rni Enema) warfarin 1 mg tablet 1.5 mg PO DAILY 05/07/25 Unknown History Allergy/AdvReac Type Severity Reaction Status Date / Time Penicillins AdvReac Mild Nausea/Vom/ Verified 05/07/25 09:46 Diarrhea Family History (Updated 05/07/25 @ 12:30 by Herminia Tovar) Sister Bipolar disease, chronic x2 sister Surgical History (Updated 05/07/25 @ 12:30 by Herminia Tovar) History of cholecystectomy History of hip surgery Social History Smoking Status: Never smoker ROS Constitutional Constitutional: Reports weakness; Denies anorexia, change in weight, chills, fever(s) or night sweats Eyes Eyes: Denies blurry vision, change in vision, discharge from eye(s) or eye pain Cardiovascular Cardiovascular: Reports dyspnea on exertion; Denies chest pain, claudication, edema or palpitations Respiratory/Chest Respiratory/Chest: Reports shortness of breath with exertion; Denies cough, hemoptysis or shortness of breath at rest Gastrointestinal Gastrointestinal: Denies abdominal pain, constipation, diarrhea, hematemesis, hematochezia, melena, nausea or vomiting Genitourinary Genitourinary: Denies dysuria, hematuria, urinary frequency, urinary hesitancy, urinary incontinence or urinary urgency Musculoskeletal Musculoskeletal: Denies back pain, joint pain, joint stiffness, joint swelling, myalgias or neck pain Neurologic Neurologic: Denies abnormal gait, abnormal speech, confusion, disequilibrium, dizziness, focal weakness, headache(s), loss of vision, numbness, other visual disturbances, paresthesias, syncope or tingling Psychiatric Psychiatric: Denies anxiety, cognitive impairment, depression, irritability, mood swings or suicidal ideation Endocrine Endocrinology: Denies change in body appearance, cold intolerance, excessive sweating, heat intolerance, polydipsia or polyuria Hematologic/Lymphatic Hematologic/Lymphatic: Denies none, anemia, easy bleeding, easy bruising or lymphadenopathy Allergic/Immunologic Allergic/Immunologic: Denies rhinitis, urticaria, eczemia or asthma Vital Signs Vital Signs Vital Signs: 05/07/25 08:04 05/07/25 08:09 05/07/25 08:24 Temperature 98.1 F Temperature Source Oral Pulse Rate 116 H 114 H Respiratory Rate 40 H 40 H Respiratory Effort Short of Breath Respiratory Pattern Tachypnea Normal Blood Pressure 149/81 H Blood Pressure Mean 103 Blood Pressure Source Blood Pressure Position Blood Pressure Location Pulse Ox 97 Oxygen Delivery Method Nasal Cannula Nasal Cannula Oxygen Flow Rate (L/min) 4 4 05/07/25 08:52 05/07/25 09:00 05/07/25 09:45 Temperature Temperature Source Pulse Rate 102 H 109 H Respiratory Rate 32 H 16 Respiratory Effort Respiratory Pattern Blood Pressure 122/64 H 136/77 H Blood Pressure Mean 81 94 Blood Pressure Source Blood Pressure Position Blood Pressure Location Pulse Ox 100 100 Oxygen Delivery Method Nasal Cannula Oxygen Flow Rate (L/min) 05/07/25 10:45 05/07/25 10:45 05/07/25 11:15 Temperature 98.1 F Temperature Source Pulse Rate 109 H 104 H 108 H Respiratory Rate 16 17 29 H Respiratory Effort Respiratory Pattern Blood Pressure 136/77 H 131/70 H 138/55 H Blood Pressure Mean 96 89 80 Blood Pressure Source Blood Pressure Position Blood Pressure Location Pulse Ox 100 100 Oxygen Delivery Method Oxygen Flow Rate (L/min) 05/07/25 12:03 05/07/25 12:04 Temperature 97.6 F L Temperature Source Oral Pulse Rate 107 H Respiratory Rate 16 Respiratory Effort Respiratory Pattern Blood Pressure 136/73 H Blood Pressure Mean 94 Blood Pressure Source Monitor Blood Pressure Position Semi-Fowlers Blood Pressure Location Left Arm Pulse Ox 100 99 Oxygen Delivery Method Nasal Cannula Nasal Cannula Oxygen Flow Rate (L/min) 4 3 Weight Weight: 84.5 kg Body Mass Index (BMI) 35.2 Physical Exam Const alert, oriented x3 and no apparent distress General Appearance: cooperative, well kempt and well developed Orientation / Consciousness: awake, oriented to person, oriented to place and oriented to time HEENT normocephalic, head/scalp atraumatic, hearing grossly normal bilaterally and moist oral mucous membranes Eyes PERRL, EOMs intact bilaterally and conjunctivae normal Neck supple, no JVD, thyroid normal and no carotid bruits General: trachea midline Resp normal respiratory effort, no retractions and no use of accessory muscles Resp Narrative: Breath sounds are diminished in the bases bilaterally Auscultation: Negative for rales, rhonchi or wheezes Cardio regular rate, regular rhythm, S1 normal heart sound, S2 normal heart sound, no murmurs, no rub and no gallops GI normal to inspection, nondistended, normoactive bowel sounds, soft to palpation, non-tender and non-distended Extremity no clubbing, cyanosis or edema Neuro oriented x3, CN's II-XII intact bilaterally, moves all extremities, no focal motor deficits and no sensory deficits noted Sensorium / Orientation: awake and alert Speech: speech normal Psych affect normal Results Lab / Micro Data 05/07/25 08:50 05/07/25 08:50 Labs: Laboratory Results - last 24 hr 05/07/25 08:50: WBC 11.4 H, RBC 3.83 L, Hgb 10.9 L, Hct 36.0 L, MCV 94.0, MCH 28.5, MCHC 30.3 L, RDW Std Deviation 62.5 H, RDW Coeff of Echo 18.2 H, Plt Count 219, MPV 8.7, Immature Gran % (Auto) 0.300, Neut % (Auto) 89.8 H, Lymph % (Auto) 5.3 L, [place] % (Auto) 4.0, Eos % (Auto) 0.2, Baso % (Auto) 0.4, Absolute Neuts (auto) 10.3 H, Absolute Lymphs (auto) 0.61 L, Nucleated RBC % 0, PT 20.1 H, INR 1.7, Sodium 140, Potassium 4.7, Chloride 103, Carbon Dioxide 25.1, Anion Gap 12, BUN 17, Creatinine 0.66 L, Estim Creat Clear Calc 63.31, Est GFR (MDRD) Non-Af 92, BUN/Creatinine Ratio 25.8 H, Glucose 272 H, Calcium 8.7, [place] [address] H Micro: Microbiology 05/07/25 08:50 Mucosa - Nose SARS-CoV-2, Influenza & RSV (PCR) - Final Imaging Radiology Impression Chest X-Ray 05/07/25 08:54 IMPRESSION: Multifocal lung disease may be atelectasis or pneumonia. Suspect a left pleural effusion Reading Location: [id number] Assessment & Plan Assessment/Plan (1) CHF (congestive heart failure): PLAN: Plan 1. Acute congestive heart failure with preserved ejection fraction-patient will be admitted to PCU, she was placed on Lasix 20 mg IV every 8 hours, patient has poor venous access and the midline will need to be placed, labs will be monitored. I will repeat a complete echocardiogram to compare to her last echocardiogram on 04/10/2025 which showed her EF to be mildly decreased. Patient did have mild left ventricular diastolic dysfunction. #2 hypoxia secondary to #1-pulse ox will be monitored, supplemental oxygen will be adjusted as necessary #3 hyperlipidemia-patient is on atorvastatin and Zetia #4 type 2 diabetes-blood sugars will be monitored, sliding scale insulin will be administered as indicated, patient will be kept on her basal insulin and her insulin with meals. #5 coronary artery disease-severe triple-vessel disease-patient will need follow-up with interventional cardiology for revascularization after her stay at the long term, it appears that the patient had an 80% stenosis of the proximal LAD, 99% stenosis of the mid LAD, 99% stenosis of the first diagonal, proximal left circumflex 100% stenosis and 60% proximal RCA stenosis. CABG versus high risk PCI was considered and that is why the patient had to be transferred to [facility] For further care and a second opinion. Will remain on her present cardiac medications. She will need follow-up as an outpatient with interventional cardiology for revascularization planning. #6 left ventricular thrombus-again patient will be kept on warfarin, I have elected to increase her dosage to 2-1/2 mg daily, she was given an extra 4 mg of warfarin this morning and her INR will be rechecked late this afternoon, it may be necessary to place her on Lovenox if her INR is not above 2. #7 recent left intertrochanteric fracture-repaired on 04/13/2025, PT and OT will see the patient here I discussed the patient's CODE STATUS with her, she wants to be full code including intubation. Total clinical time spent by myself addressing the patient's medical issues, reviewing all of her data, and collaborating with the patient's care team: 75 minutes Charges/Coding Visit Charges Inpatient E&M: 98588 Init Hosp L3
[2025-05-07] MEDS: Warfarin (PBKC) 4 MG Tablet PO ×2 (12:37→20:31)
[2025-05-07] MEDS: Furosemide 20 MG/2 ML VIAL IV ×2 (16:11→22:35)
[2025-05-07 16:14] LABS: Prothrombin Time (Protime)PT. 19.9 SECONDS (11.7-14.9)
[2025-05-07] MEDS: Senna/Docusate Sodium 1 Tablet PO (20:32)
[2025-05-07] MEDS: hydrOXYzine PAM 25 MG Capsule PO (22:35)
[2025-05-07] MEDS: 0.9% Saline Lock 10 ML Syringe IV (22:44)
[2025-05-08] VITALS (10 sets, daily range): BP systolic 106–135; BP diastolic 66–75; PULSE 80–105; RESP 14–24; TEMP 36.6–36.9; O2SAT 95–98
[2025-05-08] MEDS: Furosemide 20 MG/2 ML VIAL IV (05:47)
[2025-05-08] MEDS: 0.9% Saline Lock 10 ML Syringe IV (05:47)
--- NOTE | 2025-05-08 05:55 | ECHOCS_ITS ---
Reason For Study Reason For Study: CAD/ASHD Procedure This was a 2D Doppler, Color Flow transthoracic echocardiogram. The study was technically difficult. Contrast injection was performed. Exam performed portable in patient room. Left Ventricle Normal LV size. The left ventricular ejection fraction is 20 %. Moderately severe segmental systolic dysfunction (see wall motion). Stage 2 diastolic dysfunction. Mobile : Akinetic. Mid-Anterior : Severely Hypokinetic. Mid-anteroseptal : Severely Hypokinetic. Mid-Lateral : Severely Hypokinetic. Anterio-Basal: Normal. Posterior-Basal: Normal. Mid-Inferior: Normal. Mid-Posterior: Normal. Right Ventricle Normal RV size. Normal systolic function. Atria Normal left atrium. Normal right atrium. Mitral Valve There is moderate mitral annular calcification. Mild (1+) eccentric mitral valve insufficiency. Tricuspid Valve Normal tricuspid valve. Mild (1+) tricuspid valve insufficiency. Pulmonary artery systolic pressure is 47 mmHg. Aortic Valve Trisinus/trileaflet aortic valve. Pulmonic Valve Normal pulmonic valve. Great Vessels Normal aortic root. The pulmonary artery is normal size. Inferior vena cava collapse with respiration. Pericardium/Pleural No pericardial effusion. Medication Diluted definity 2ml given slow IV push to enhance endocardial definition. MMode/2D Measurements & Calculations LVIDd: 5.1 cm IVSd: 1.2 cm LVOT diam: 2.0 cm LVIDs: 4.4 cm LVPWd: 1.2 cm RVDd: 3.6 cm FS: 14.0 % LVOT area: 3.2 cm2 Ao root diam: 2.8 cm LAV(MOD-bp): 50.7 ml LVAd ap4: 40.6 cm2 LAV(MOD-bp) Indexed: 27.7 ml/m2 LVLd ap4: 8.2 cm LAV(MOD-sp2): 55.5 ml EDV(MOD-sp4): 162.1 ml LAV(MOD-sp4): 42.8 ml EDV(sp4-el): 170.3 ml LVAs ap4: 36.2 cm2 LVLs ap4: 7.7 cm ESV(MOD-sp4): 136.4 ml ESV(sp4-el): 144.1 ml EF(MOD-sp4): 15.9 % EF(sp4-el): 15.4 % SV(MOD-sp4): 25.7 ml SV(sp4-el): 26.2 ml LA A4 area: 16.2 cm2 SI(MOD-sp4): 14.0 ml/m2 LA dimension(2D): 3.9 cm RA A4 area: 11.2 cm2 TAPSE: 1.7 cm Time Measurements MV dec time: 0.14 sec Doppler Measurements & Calculations MV E max farhad: 90.0 cm/sec Lat Peak E' Farhad: 9.7 cm/sec Med Peak E' Farhad: 5.2 cm/sec MV A max farhad: 87.1 cm/sec E/E' lat: 9.2 E/E' med: 17.2 MV E/A: 1.0 MV V2 max: 105.8 cm/sec MV P1/2t max farhad: 106.1 cm/sec Ao V2 max: 136.4 cm/sec MV max P.5 mmHg MV P1/2t: 52.3 msec Ao max P.4 mmHg MV V2 mean: 70.0 cm/sec MV dec slope: 594.0 cm/sec2 Ao V2 mean: 93.8 cm/sec MV mean P.3 mmHg MVA(P1/2t): 4.2 cm2 Ao mean P.1 mmHg MV V2 VTI: 20.2 cm Ao V2 VTI: 25.5 cm MVA(VTI): 2.7 cm2 AV (velocity ratio): 0.67 TRAE(I,D): 2.1 cm2 TRAE(V,D): 2.4 cm2 LV V1 max: 103.2 cm/sec MR max farhad: 512.8 cm/sec SV(LVOT): 54.2 ml LV V1 max P.3 mmHg MR max P.2 mmHg LV V1 mean P.3 mmHg MR mean farhad: 403.1 cm/sec LV V1 mean: 70.2 cm/sec MR mean P.0 mmHg LV V1 VTI: 17.1 cm MR VTI: 155.8 cm PA V2 max: 86.2 cm/sec TR max farhad: 331.7 cm/sec PA V2 mean: 66.0 cm/sec TR max P.0 mmHg ECHO/Echo Complete W/ Contrast Interpretation Summary Normal LV size. The left ventricular ejection fraction is 20 %. Moderately severe segmental systolic dysfunction (see wall motion). Stage 2 diastolic dysfunction. Contrast injection was performed. Ordering Physician: Jatin Kemp Performed By: Juan Ramon Worrell RCS
[2025-05-08] MEDS: Albuterol 2.5 MG/3 ML VIAL.NEB. INHALATION (06:19)
[2025-05-08 07:09] LABS: Prothrombin Time (Protime)PT. 23.9 SECONDS (11.7-14.9)
[2025-05-08 07:19] LABS: Anion Gap 11 (5-15); BUN 15 mg/dL (4-19); BUN/Creat Ratio 26.5 RATIO (10-20); Calcium,Total 8.3 mg/dL (7.6-11.0); Carbon Dioxide 28.7 mmol/L (21.0-32.0); Chloride 102 mmol/L (98-108); Estimated Creatinine Clearance 60.85 ml/min (50-250); Glucose 116 mg/dL (70-99); Potassium 3.6 mmol/L (3.3-5.1)
[2025-05-08] MEDS: Senna/Docusate Sodium 1 Tablet PO ×2 (10:02→21:36)
--- NOTE | 2025-05-08 10:13 | PN_ITS ---
Subjective Subjective Patient was seen and examined with her nurse by her bedside. She had no active complaints. She denies any coughing, chest pain, palpitations, nausea or vomiting or any other symptoms. She is on 2 L of oxygen. Review of systems otherwise negative. Objective Data Objective Data Vital Signs: Vital Signs Temp Pulse Resp BP Pulse Ox O2 Del Method O2 Flow Rate 98.4 F 105 H 16 135/75 H 97 Room Air 2 05/08/25 10:00 05/08/25 10:02 05/08/25 10:00 05/08/25 10:02 05/08/25 10:00 05/08/25 10:00 05/08/25 06:21 Oxygen Flow Rate (L/min) 2 Oxygen Delivery Method Room Air Weight: 186 lb 4.65 oz Body Mass Index (BMI) 35.2 Intake & Output: Intake and Output for Last 24 Hours 05/06/25 05/07/25 05/08/25 23:59 23:59 23:59 Output Total 500 / 1600 1100 / 1100 Balance -500 / -1600 -1100 / -1100 Lab / Micro Data 05/07/25 08:50 05/08/25 06:25 Labs: Laboratory Results - last 24 hr 05/07/25 12:35: POC Glucose 230 H 05/07/25 15:56: PT 19.9 H, INR 1.7 05/07/25 16:10: POC Glucose 189 H 05/08/25 06:25: PT 23.9 H, INR 2.1, Sodium 141, Potassium 3.6, Chloride 102, Carbon Dioxide 28.7, Anion Gap 11, BUN 15, Creatinine 0.56 L, Estim Creat Clear Calc 60.85, Est GFR (MDRD) Non-Af 96, BUN/Creatinine Ratio 26.5 H, Glucose 116 H , Calcium 8.3 05/08/25 08:14: POC Glucose 123 H Micro: Microbiology 05/07/25 08:50 Mucosa - Nose SARS-CoV-2, Influenza & RSV (PCR) - Final Radiography Diagnostic Testing: Radiology Impression Chest X-Ray 05/07/25 08:54 IMPRESSION: Multifocal lung disease may be atelectasis or pneumonia. Suspect a left pleural effusion Reading Location: [id number] Physical Exam Const alert, oriented x3 and no apparent distress General Appearance: cooperative HEENT normocephalic, head/scalp atraumatic, moist oral mucous membranes and oropharynx normal Eyes EOMs intact bilaterally Neck no lymphadenopathy and supple Lymph Lymphatic: no lymphedema noted Resp Resp Narrative: mildly diminished breath sounds bibasally, no wheezes or crackles. on room 2L of oxygen by nasal canula Cardio regular rhythm, S1 normal heart sound and S2 normal heart sound Cardio Narrative: tachycardic GI normal to inspection, nondistended, normoactive bowel sounds, soft to palpation, non-tender and non-distended Extremity normal capillary refill, no clubbing, cyanosis or edema and no calf tenderness General Extremity: no tenderness to palpation of joints or extremities Skin Skin Narrative: intact dressing over surgical site on left hip General Skin Exam: no breakdown Neuro CN's II-XII intact bilaterally, no focal motor deficits and no sensory deficits noted Motor Exam: general weakness Psych thought process normal and cooperative Appearance: appropriate Assessment & Plan Assessment/Plan (1) Dyspnea: (2) CHF (congestive heart failure): PLAN: Plan #Hypoxia due to acute exacerbation of heart failure with preserved ejection fraction * On IV Lasix 20 mg Q8. Will switch this to IV Lasix 40 mg twice daily * 2D echo ordered and is pending. Titrate oxygen to maintain saturation above 90%. Breathing treatments bronchodilators. #Hyperlipidemia: On statin and Zetia #Type 2 diabetes mellitus: On insulin sliding scale. Accu-Cheks ACHS. Also on Lantus 32 units in the morning #CAD: * Has known severe triple-vessel disease. She did have cardiac cath at [facility] Done prior to her having her left hip surgery and showed 80% stenosis of the proximal LAD, 99% stenosis of the mid LAD and 99% stenosis of the first diagonal with proximal left circumflex 100% stenosis and 60% proximal RCA stenosis. * She is to follow-up at [facility] With CT surgery for evaluation for CABG or high risk PCI. * On aspirin and high intensity statin. Also on metoprolol #History of left ventricular thrombus: On Coumadin. Target INR is 2-3 #Recent left intertrochanteric fracture: S/p repair on 04/13/2025. PT OT on board. Fall precautions. DVT prophylaxis: Already on Coumadin. INR is 2.1 today Charges/Coding Visit Charges Inpatient E&M: 08950 Subs Hosp L2
--- NOTE | 2025-05-08 10:25 | CASEMGMT ---
Social Work SW spoke with the patient and her plan is to return to [facility]. OMA Zhao
--- NOTE | 2025-05-08 10:31 | CASEMGMT ---
Addendum entered by Iesha Morales 05/08/25 13:28: Pt will need precert to return. Iesha Morales DC Planning Asst. Original Note: Discharge Planning Updates sent via [facility] to [facility]. Iesha Morales DC Planning Asst.
[2025-05-08] MEDS: Insulin Glargine-YFGN 100 UNIT/ML Pen 32 UNIT SC (12:13)
--- NOTE | 2025-05-08 14:46 | CHAPLAIN ---
Type of Pastoral Visit _x__ Initial Visit ___ Follow-up Visit ___ On-call Visit ___ General Patient Visit ___ Spiritual Assessment ___ Family Conference ___ Bereavement ___ Rapid Response ___ Code Blue ___ Other (describe below) Pastoral Care Referral From _x__ Patient ___ Family ___ Nurse ___ Physician ___ Gag Writer ___ Astronomy Teacher ___ Other (describe below) Sacrament/Intervention _x__ Active listening ___ Anointing ___ Amish ___ Bereavement ___ Communion _x__ Anastasia exploration ___ _x__ Life review _x__ Prayer ___ Reconciliation ___ Sacrament of Sick _x__ Supportive presence ___ Wedding ___ Other (describe below) Pastoral Comments patient is welcoming and eager to talk; pt shares about her life and her experiences of the past; 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
[2025-05-08] MEDS: Warfarin (PBKC) 2.5 MG Tablet PO (17:09)
[2025-05-09] VITALS (11 sets, daily range): BP systolic 102–127; BP diastolic 65–70; PULSE 80–100; RESP 14–18; TEMP 36.1–37.3; O2SAT 86–98
[2025-05-09 06:30] LABS: Hematocrit 33.6 % (37-47); Hemoglobin 10.0 g/dL (12.0-15.0); Immature Granulocytes Count 0.050 X10^3/uL (0.0-0.0); Mean Corp Hgb Conc 29.8 g/dL (32-36); Mean Corpuscular Volume 92.8 fL (81-99); Mean Platelet Vol. 9.1 fl (6.2-12.0); NRBC Flagged by Analyzer 0 % (0-5); Platelet Count 183 K/mm3 (150-450); RBC Distribution Width CV 17.4 % (11.6-14.6); RBC Distribution Width SD 59.7 fl (35.1-43.9); Red Blood Count 3.62 M/mm3 (4.2-5.4); White Blood Count 10.8 K/mm3 (4.4-11.0)
[2025-05-09 06:41] LABS: Prothrombin Time (Protime)PT. 31.4 SECONDS (11.7-14.9)
[2025-05-09] MEDS: Albuterol 2.5 MG/3 ML VIAL.NEB. INHALATION (06:58)
[2025-05-09 07:04] LABS: Anion Gap 9 (5-15); BUN 22 mg/dL (4-19); BUN/Creat Ratio 42.6 RATIO (10-20); Calcium,Total 8.7 mg/dL (7.6-11.0); Carbon Dioxide 32.5 mmol/L (21.0-32.0); Chloride 100 mmol/L (98-108); Estimated Creatinine Clearance 60.85 ml/min (50-250); Glucose 92 mg/dL (70-99); Potassium 3.6 mmol/L (3.3-5.1)
[2025-05-09] MEDS: Senna/Docusate Sodium 1 Tablet PO ×2 (09:05→21:30)
[2025-05-09] MEDS: Insulin Glargine-YFGN 100 UNIT/ML Pen 32 UNIT SC (11:19)
[2025-05-09] MEDS: 0.9% Saline Lock 10 ML Syringe IV ×2 (11:22→17:57)
--- NOTE | 2025-05-09 14:27 | CASEMGMT ---
Discharge Planning Updates sent to [facility] with note to submit for precert. Iesha Morales DC Planning Asst.
--- NOTE | 2025-05-09 14:49 | PCM.PROGNOTE ---
Subjective Subjective Patient seen and examined with her nurse by her bedside. She had no active complaints and had an uneventful night. Her breathing is much better. SHe is now on room air. Review of systems is otherwise negative. She has remained hemodynamically stable. She had 2D echo which showed EF of 20% with severe LV hypokinesis. Review of systems is otherwise negative. Objective Data Objective Data Vital Signs: Vital Signs Temp Pulse Resp BP Pulse Ox O2 Del Method O2 Flow Rate 97 F L 96 17 127/69 H 93 Room Air 2 05/09/25 08:55 05/09/25 09:04 05/09/25 08:55 05/09/25 08:55 05/09/25 09:07 05/09/25 09:07 05/09/25 09:27 Oxygen Flow Rate (L/min) 2 Oxygen Delivery Method Room Air Weight: 186 lb 4.65 oz Body Mass Index (BMI) 35.2 Intake & Output: Intake and Output for Last 24 Hours 05/07/25 05/08/25 05/09/25 23:59 23:59 23:59 Intake Total 450 / 450 Output Total 500 / 1600 1500 / 1500 950 / 950 Balance -500 / -1600 -1500 / -1500 -500 / -500 Lab / Micro Data 05/09/25 05:18 05/09/25 05:18 Labs: Laboratory Results - last 24 hr 05/08/25 16:38: POC Glucose 134 H 05/09/25 05:11: POC Glucose 111 H 05/09/25 05:18: WBC 10.8, RBC 3.62 L, Hgb 10.0 L, Hct 33.6 L, MCV 92.8, MCH 27.6, MCHC 29.8 L, RDW Std Deviation 59.7 H, RDW Coeff of Echo 17.4 H, Plt Count 183, MPV 9.1, Immature Gran % (Auto) 0.500, Neut % (Auto) 81.0 H, Lymph % (Auto) 10.4 L, Fajardo % (Auto) 7.4, Eos % (Auto) 0.4, Baso % (Auto) 0.3, Absolute Neuts (auto) 8.8 H, Absolute Lymphs (auto) 1.12, Nucleated RBC % 0, PT 31.4 H, INR 2.9, Sodium 142, Potassium 3.6, Chloride 100, Carbon Dioxide 32.5 H, Anion Gap 9, BUN 22 H, Creatinine 0.52 L, Estim Creat Clear Calc 60.85, Est GFR (MDRD) Non-Af 97, BUN/Creatinine Ratio 42.6 H, Glucose 92, Calcium 8.7 05/09/25 09:03: POC Glucose 99 05/09/25 11:18: POC Glucose 178 H Micro: Microbiology 05/07/25 08:50 Mucosa - Nose SARS-CoV-2, Influenza & RSV (PCR) - Final Radiography Diagnostic Testing: Radiology Impression Echocardiogram 05/08/25 05:55 Interpretation Summary Normal LV size. The left ventricular ejection fraction is 20 %. Moderately severe segmental systolic dysfunction (see wall motion). Stage 2 diastolic dysfunction. Contrast injection was performed. Ordering Physician: Jatin Kemp Performed By: Juan Ramon Worrell RCS Physical Exam Const alert, oriented x3 and no apparent distress General Appearance: cooperative, well kempt and well developed Orientation / Consciousness: awake, oriented to person, oriented to place and oriented to time HEENT normocephalic, head/scalp atraumatic, hearing grossly normal bilaterally, moist oral mucous membranes and oropharynx normal Eyes PERRL, EOMs intact bilaterally and conjunctivae normal Neck no lymphadenopathy, supple, no JVD, thyroid normal and no carotid bruits General: trachea midline Lymph Lymphatic: no lymphedema noted Resp Resp Narrative: mildly diminished breath sounds bibasally, no wheezes or crackles. on room 2L of oxygen by nasal canula Auscultation: Negative for rales, rhonchi or wheezes Cardio regular rate, regular rhythm, S1 normal heart sound, S2 normal heart sound and no murmurs GI normal to inspection, nondistended, normoactive bowel sounds and soft to palpation Extremity normal capillary refill, no clubbing, cyanosis or edema and no calf tenderness General Extremity: no tenderness to palpation of joints or extremities Skin Skin Narrative: intact dressing over surgical site on left hip General Skin Exam: no breakdown Neuro oriented x3, CN's II-XII intact bilaterally, moves all extremities, no focal motor deficits and no sensory deficits noted Sensorium / Orientation: awake and alert Speech: speech normal Motor Exam: general weakness Psych thought process normal, cooperative and affect normal Appearance: appropriate Assessment & Plan Assessment/Plan (1) Dyspnea: (2) CHF (congestive heart failure): PLAN: Plan #Hypoxia due to acute exacerbation of heart failure with preserved ejection fraction On IV Lasix 40 mg twice daily. Has been weaned to room air. 2D echo showed EF of 20% with moderately severe segmental systolic dysfunction and stage 2 diastolic dysfunction. 2D echo ordered and is pending. Titrate oxygen to maintain saturation above 90%. Breathing treatments bronchodilators. #Hyperlipidemia: On statin and Zetia #Type 2 diabetes mellitus: On insulin sliding scale. Accu-Cheks ACHS. Also on Lantus 32 units in the morning #CAD: Has known severe triple-vessel disease. She did have cardiac cath at [facility] Done prior to her having her left hip surgery and showed 80% stenosis of the proximal LAD, 99% stenosis of the mid LAD and 99% stenosis of the first diagonal with proximal left circumflex 100% stenosis and 60% proximal RCA stenosis. 2D echo as above. EF is down to 20% from 51& on echo done at [facility]. I discussed with Dr Milner cigarette lighter repairer chief controller tower. Per the discussion, no need for cardiology consult now as there is no benefit in repeating a cath since she has known triple-vessel disease. Per cardiology best is for patient to follow-up at [facility] with cardiothoracic surgery for evaluation for CABG. An appointment was made for patient with [facility] CT surgeons for June 19, 2024. I did discuss with cigarette lighter repairer on-call again who stated that it was okay for patient to go to the June 19 appointment and there was no need for urgent transfer to [facility] Now as patient was clinically stable and on room air. I also discussed the need for life vest with cigarette lighter repairer chief controller tower, Dr Milner. Per discussion, patient can follow up with CT surgery and he did not think patient needed a life vest now. On aspirin and high intensity statin. Also on metoprolol #History of left ventricular thrombus: On Coumadin. Target INR is 2.9. #Recent left intertrochanteric fracture: S/p repair on 04/13/2025. PT OT on board. Fall precautions. DVT prophylaxis: Already on Coumadin. INR is 2.9 today Disposition: DC back to halfway facility pending pre-CERT. Charges/Coding Visit Charges Inpatient E&M: 86296 Subs Hosp L2
--- NOTE | 2025-05-09 15:02 | WOUNDNOTE ---
wound photo: left hip
--- NOTE | 2025-05-09 15:02 | CHAPLAIN ---
Type of Pastoral Visit ___ Initial Visit _x__ Follow-up Visit ___ On-call Visit ___ General Patient Visit ___ Spiritual Assessment ___ Family Conference ___ Bereavement ___ Rapid Response ___ Code Blue ___ Other (describe below) Pastoral Care Referral From ___ Patient ___ Family ___ Nurse ___ Physician ___ Account Receivable Clerk ___ Skating Rink Ice Maker _x__ Other (describe below) Sacrament/Intervention _x__ Active listening ___ Anointing ___ Mosque ___ Bereavement ___ Communion ___ Anastasia exploration ___ ___ Life review _x__ Prayer ___ Reconciliation ___ Sacrament of Sick ___ Supportive presence ___ Wedding ___ Other (describe below) Pastoral Comments EVS asked this gate shear operator to make a visit to this patient; pt was seen yesterday but per request she got some difficult news today; pt is resting quietly and when she opens her eyes she admits that she is not feeling well but would appreciate a visit; pt gives some update on her health condition and only reflects on fact that 'doctors want other tests of procedures done before getting to my surgery'; pt speaks again of her medical training and welcomes a prayer for support today; pt is expressive of appreciation for the stop in visit
[2025-05-09] MEDS: Warfarin (PBKC) 2.5 MG Tablet PO (16:32)
[2025-05-10] VITALS (8 sets, daily range): BP systolic 115–137; BP diastolic 63–79; PULSE 81–130; RESP 16–18; TEMP 36.3–37.1; O2SAT 95–98
[2025-05-10 05:59] LABS: Hematocrit 30.5 % (37-47); Hemoglobin 9.2 g/dL (12.0-15.0); Immature Granulocytes Count 0.030 X10^3/uL (0.0-0.0); Mean Corp Hgb Conc 30.2 g/dL (32-36); Mean Corpuscular Volume 91.9 fL (81-99); Mean Platelet Vol. 9.3 fl (6.2-12.0); NRBC Flagged by Analyzer 0 % (0-5); Platelet Count 147 K/mm3 (150-450); RBC Distribution Width CV 17.1 % (11.6-14.6); RBC Distribution Width SD 57.8 fl (35.1-43.9); Red Blood Count 3.32 M/mm3 (4.2-5.4); White Blood Count 8.3 K/mm3 (4.4-11.0)
[2025-05-10 06:12] LABS: Prothrombin Time (Protime)PT. 32.1 SECONDS (11.7-14.9)
[2025-05-10 06:18] LABS: Anion Gap 8 (5-15); BUN 17 mg/dL (4-19); BUN/Creat Ratio 28.4 RATIO (10-20); Calcium,Total 8.0 mg/dL (7.6-11.0); Carbon Dioxide 31.0 mmol/L (21.0-32.0); Chloride 99 mmol/L (98-108); Estimated Creatinine Clearance 60.85 ml/min (50-250); Glucose 87 mg/dL (70-99); Potassium 3.1 mmol/L (3.3-5.1)
[2025-05-10] MEDS: Potassium Chloride Oral Tablet 20 MEQ 40 MEQ PO (08:51)
[2025-05-10] MEDS: Senna/Docusate Sodium 1 Tablet PO ×2 (08:51→20:20)
[2025-05-10] MEDS: 0.9% Saline Lock 10 ML Syringe IV (08:52)
[2025-05-10] MEDS: Polyethylene Glycol 3350 17 GM PACKET PO (08:52)
[2025-05-10] MEDS: Insulin Glargine-YFGN 100 UNIT/ML Pen 32 UNIT SC (08:58)
--- NOTE | 2025-05-10 10:02 | CASEMGMT ---
Social work SW spoke with the patient and informed her that she is medically ready to DC. SW explained once her insurance approves her return to [facility] she will be DC. Patient reported she is on oxygen at the [facility]. OMA Zhao
--- NOTE | 2025-05-10 11:09 | PCM.PROGNOTE ---
Subjective Subjective Patient seen and examined this morning with her nurse by bedside. She had no active complaints. Feels her breathing has improved. She still on 2 L of oxygen. She was tachycardic this morning with heart rate of 120. Review of systems otherwise negative. Objective Data Objective Data Vital Signs: Vital Signs Temp Pulse Resp BP Pulse Ox O2 Del Method O2 Flow Rate 97.4 F L 120 H 18 137/79 H 98 Nasal Cannula 2 05/10/25 08:50 05/10/25 08:51 05/10/25 08:50 05/10/25 08:51 05/10/25 08:50 05/10/25 08:50 05/10/25 08:50 Oxygen Flow Rate (L/min) 2 Oxygen Delivery Method Nasal Cannula Weight: 186 lb 4.65 oz Body Mass Index (BMI) 35.2 Intake & Output: Intake and Output for Last 24 Hours 05/08/25 05/09/25 05/10/25 23:59 23:59 23:59 Intake Total 1070 / 1070 60 / 60 Output Total 1500 / 1500 2049 / 2049 Balance -1500 / -1500 -980 / -980 60 / 60 Lab / Micro Data 05/10/25 05:24 05/10/25 05:24 Labs: Laboratory Results - last 24 hr 05/09/25 11:18: POC Glucose 178 H 05/09/25 16:29: POC Glucose 120 H 05/09/25 21:21: POC Glucose 119 H 05/10/25 05:24: WBC 8.3, RBC 3.32 L, Hgb 9.2 L, Hct 30.5 L, MCV 91.9, MCH 27.7, MCHC 30.2 L, RDW Std Deviation 57.8 H, RDW Coeff of Echo 17.1 H, Plt Count 147 L, MPV 9.3, Immature Gran % (Auto) 0.400, Neut % (Auto) 76.8 H, Lymph % (Auto) 13.4 L, Addison % (Auto) 8.8, Eos % (Auto) 0.2, Baso % (Auto) 0.4, Absolute Neuts (auto) 6.4, Absolute Lymphs (auto) 1.11, Nucleated RBC % 0, PT 32.1 H, INR 3.0, Sodium 138, Potassium 3.1 L, Chloride 99, Carbon Dioxide 31.0, Anion Gap 8, BUN 17, Creatinine 0.60 L, Estim Creat Clear Calc 60.85, Est GFR (MDRD) Non-Af 94, BUN/Creatinine Ratio 28.4 H, Glucose 87, Calcium 8.0 05/10/25 08:30: POC Glucose 88 Micro: Microbiology 05/07/25 08:50 Mucosa - Nose SARS-CoV-2, Influenza & RSV (PCR) - Final Physical Exam Const alert, oriented x3 and no apparent distress General Appearance: cooperative, well kempt and well developed Orientation / Consciousness: awake HEENT normocephalic, head/scalp atraumatic, hearing grossly normal bilaterally, moist oral mucous membranes and oropharynx normal Eyes PERRL, EOMs intact bilaterally and conjunctivae normal Neck no lymphadenopathy, supple and no JVD General: trachea midline Lymph Lymphatic: no lymphedema noted Resp Resp Narrative: mildly diminished breath sounds bibasally, no wheezes or crackles. Remains on room 2L of oxygen by nasal canula Cardio regular rhythm, S1 normal heart sound and S2 normal heart sound Cardio Narrative: tachycardic GI normal to inspection, nondistended, normoactive bowel sounds, soft to palpation, non-tender and non-distended Extremity normal capillary refill, no clubbing, cyanosis or edema and no calf tenderness General Extremity: no tenderness to palpation of joints or extremities Skin Skin Narrative: intact dressing over surgical site on left hip General Skin Exam: no breakdown Neuro oriented x3, CN's II-XII intact bilaterally, moves all extremities, no focal motor deficits and no sensory deficits noted Sensorium / Orientation: awake and alert Speech: speech normal Motor Exam: general weakness Psych thought process normal, cooperative and affect normal Appearance: appropriate Assessment & Plan Assessment/Plan (1) Dyspnea: (2) CHF (congestive heart failure): PLAN: Plan #Hypoxia due to acute exacerbation of heart failure with preserved ejection fraction On IV Lasix 40 mg twice daily. on 2L of oxygen today which [facility]. 2D echo showed EF of 20% with moderately severe segmental systolic dysfunction and stage 2 diastolic dysfunction. Titrate oxygen to maintain saturation above 90%. Breathing treatments bronchodilators. switch to oral lasix today. #Hyperlipidemia: On statin and Zetia #Hypokalemia: K is 3.1. Will replace and trend. #Type 2 diabetes mellitus: On insulin sliding scale. Accu-Cheks ACHS. Also on Lantus 32 units in the morning #CAD: Has known severe triple-vessel disease. She did have cardiac cath at [facility] Done prior to her having her left hip surgery and showed 80% stenosis of the proximal LAD, 99% stenosis of the mid LAD and 99% stenosis of the first diagonal with proximal left circumflex 100% stenosis and 60% proximal RCA stenosis. 2D echo as above. EF is down to 20% from 51& on echo done at [facility]. I discussed with Dr Milner commercial parts professional orthodontic technician assistant. Per the discussion, no need for cardiology consult now as there is no benefit in repeating a cath since she has known triple-vessel disease. Per cardiology best is for patient to follow-up at [facility] with cardiothoracic surgery for evaluation for CABG. An appointment was made for patient with [facility] CT surgeons for June 19, 2024. I did discuss with commercial parts professional on-call again who stated that it was okay for patient to go to the June 19 appointment and there was no need for urgent transfer to [facility] Now as patient was clinically stable and on room air. I also discussed the need for life vest with commercial parts professional orthodontic technician assistant, Dr Milner. Per discussion, patient can follow up with CT surgery and he did not think patient needed a life vest now. On aspirin and high intensity statin. Also on metoprolol #History of left ventricular thrombus: On Coumadin. INR today is 3. #Recent left intertrochanteric fracture: S/p repair on 04/13/2025. PT OT on board. Fall precautions. DVT prophylaxis: Already on Coumadin. INR is 3 today Disposition: DC back to halfway facility pending pre-CERT. Charges/Coding Visit Charges Inpatient E&M: 74723 Subs Hosp L2
--- NOTE | 2025-05-10 14:19 | CASEMGMT ---
Discharge Planning Call rec'd from [facility] stating that pt can readmit under current auth if she returns before midnight tonight (05/10). Physician updated. Iesha Morales DC Planning Asst.
--- NOTE | 2025-05-10 15:15 | PCM.TXEXTCAR ---
Diet Diet Order/Speech Therapy: INPATIENT Hospital Diet / Speech Therapy Order(s) 05/07/25 11:43 Diet: Cardiac: Calorie-Controlled Food consistency:: Soft & Bite Sized Liquid Consistency:: Regular/Thin How many daily calories?: 1800 calorie Routine Orders/Code Status Enema Type: Fleetz Enema Frequency: Daily PRN Suppository Type: Dulcolax 10mg Suppository Frequency: Daily PRN DC O2, CPAP, BIPAP needs Home O2 Discharge instructions: Yes Type of respiratory needs?: Oxygen Oxygen frequency: Continuous Continuous oxygen liters per minute: 2 Wound(s) Left Hip: Wound Type: Surgical Incision Dressing Change: dry dressing Therapies Weight Bearing: Weight bearing as tolerated Physical Therapy: Eval and Treat Occupational Therapy: Eval and Treat Problem/Diagnosis (1) Dyspnea: Status: Acute Code(s): R06.00 - Dyspnea, unspecified (2) CHF (congestive heart failure): Status: Acute Code(s): I50.9 - Heart failure, unspecified Plan #Hypoxia due to acute exacerbation of heart failure with preserved ejection fraction On IV Lasix 40 mg twice daily. on 2L of oxygen today which she has been [facility] the [facility]. 2D echo showed EF of 20% with moderately severe segmental systolic dysfunction and stage 2 diastolic dysfunction. Titrate oxygen to maintain saturation above 90%. Breathing treatments bronchodilators. switch to oral lasix today. #Hyperlipidemia: On statin and Zetia #Hypokalemia: K is 3.1. Will replace and trend. #Type 2 diabetes mellitus: On insulin sliding scale. Accu-Cheks ACHS. Also on Lantus 32 units in the morning #CAD: Has known severe triple-vessel disease. She did have cardiac cath at [facility] Done prior to her having her left hip surgery and showed 80% stenosis of the proximal LAD, 99% stenosis of the mid LAD and 99% stenosis of the first diagonal with proximal left circumflex 100% stenosis and 60% proximal RCA stenosis. 2D echo as above. EF is down to 20% from 51& on echo done at [facility]. I discussed with Dr Milner filler blender chimney construction supervisor. Per the discussion, no need for cardiology consult now as there is no benefit in repeating a cath since she has known triple-vessel disease. Per cardiology best is for patient to follow-up at [facility] with cardiothoracic surgery for evaluation for CABG. An appointment was made for patient with [facility] CT surgeons for June 19, 2024. I did discuss with filler blender on-call again who stated that it was okay for patient to go to the June 19 appointment and there was no need for urgent transfer to [facility] as patient was clinically stable and on room air. I also discussed the need for life vest with filler blender chimney construction supervisor, Dr Milner. Per discussion, patient can follow up with CT surgery and he did not think patient needed a life vest now. On aspirin and high intensity statin. Also on metoprolol #History of left ventricular thrombus: On Coumadin. INR today is 3. #Recent left intertrochanteric fracture: S/p repair on 04/13/2025. PT OT on board. Fall precautions. DVT prophylaxis: Already on Coumadin. INR is 3 today [facility]. Allergies/Procedures Done in Hospital Allergies Penicillins Adverse Reaction (Mild, Verified 05/07/25 09:46) Nausea/Vom/Diarrhea Procedures: 2-D Echocardiogram Type of Care/Length of Stay Estimated LOS: Convalescent Care Less Than 30 days Type of Care Needed: Skilled Rehab Potential: Fair Prognosis: Fair Additional Orders/Day of Discharge Day of Discharge: 05/10/25 Dietary and Speech Recommendations Dietitian Recommendations/Changes: Will continue cardiac;1800 calorie controlled diet with soft and bite sized consistency per pt request. Will monitor weight trends. Discharge Plan Admission Admit Date/Time: 05/07/25 10:44 Primary Reason for Your Visit: acute exacerbation of heart failure with reduced EF Attending Provider: Mouna Chandra Primary Care Provider: Jillian Tomlinson Consulting Providers: Jatin Kemp Instructions Patient Instructions: Heart Failure Additional Instructions / Restrictions: Please follow-up with your CT surgeon and filler blender at [facility] as scheduled. Appointment with CT surgeon made for general refill 2024. Discharge Orders/Prescriptions Prescriptions: New furosemide [Lasix] 40 mg tablet 40 mg PO BID Qty: 60 2RF potassium chloride [Klor-Con M20] 20 mEq tablet,ER particles/crystals 20 meq PO BID Qty: 60 1RF Continued ondansetron HCl 4 mg tablet 4 mg PO Q8H PRN (Reason: nausea and vomiting) hydroxyzine HCl 25 mg tablet 25 mg PO Q6H PRN (Reason: anxiety) albuterol sulfate 2.5 mg /3 mL (0.083 %) solution for nebulization 2.5 mg continuous nebulization Q8H PRN (Reason: shortness of breath or wheezing) senna-docusate sodium Capsule 1 cap PO BID warfarin 1 mg tablet 1.5 mg PO DAILY metoprolol tartrate 50 mg tablet 50 mg PO BID atorvastatin [Lipitor] 80 mg tablet 80 mg PO QHS insulin lispro 100 unit/mL cartridge 3 unit subcut TID insulin lispro 100 unit/mL cartridge 1 unit subcut ACHS insulin glargine [Lantus Solostar U-100 Insulin] 100 unit/mL (3 mL) insulin pen 32 unit subcut .QAM cyanocobalamin (vitamin B-12) 1,000 mcg capsule 1,000 mcg PO DAILY polyethylene glycol 3350 [Miralax] 17 gram powder in packet 17 g PO DAILY multivitamin with iron-mineral Tablet 1 tab PO DAILY ezetimibe 10 mg tablet 10 mg PO DAILY cholecalciferol (vitamin D3) 1,250 mcg (50,000 unit) capsule 1,250 mcg PO SA aspirin 81 mg capsule 81 mg PO DAILY amlodipine 5 mg tablet 5 mg PO DAILY oxycodone 5 mg capsule 5 mg PO Q6H PRN (Reason: pain) alum-mag hydroxide-simeth [Antacid M] 200-200-20 mg/5 mL suspension 30 ml PO Q4H PRN (Reason: indigestion) guaifenesin 200 mg/5 mL liquid 400 mg PO Q4H PRN (Reason: cough) magnesium hydroxide [Milk of Magnesia] 400 mg/5 mL suspension 30 ml PO DAILY PRN (Reason: constipation) dextrose [Glucose Gel] 40 % gel 15 g PO Q15M PRN (Reason: hypoglycemia) Rx Instructions: until symptoms of low blood sugar are controlled glucagon 1 mg kit 1 mg IM PRN PRN (Reason: hypoglycemia) acetaminophen 325 mg capsule 650 mg PO Q4H PRN (Reason: fever or pain) bisacodyl 10 mg suppository 10 mg MT DAILY PRN (Reason: constipation) Qjsma-Ni-Vtx Enema 19-7 gram/118 mL enema 118 ml MT DAILY PRN (Reason: constipation) acetaminophen 650 mg suppository 650 mg MT Q4H PRN (Reason: fever or pain) Discontinued acetaminophen 500 mg capsule 1,000 mg PO Q6H PRN (Reason: fever or pain) furosemide [Lasix] 20 mg tablet 20 mg PO DAILY Referrals / Follow Up: Jillian Tomlinson MD [Primary Care Provider, Geriatrics] - Within 1 Week Disposition Disposition (needs filled in before D/C Order can be placed): Care Home Facility
--- NOTE | 2025-05-10 15:19 | DS.PCM_ITS ---
Providers Date of Admission: 05/07/25 Date of Discharge: 05/10/25 Primary Care Physician: Dr. Jillian Tomlinson MD Consultations 05/07/25 16:07 Consult: Onc/Wound/lime mixer Routine Comment: Comments:: left hip Reason For Visit: CONGESTIVE HEART FAILURE Diagnosis Discharge Diagnosis (1) Dyspnea: Status: Acute Code(s): R06.00 - Dyspnea, unspecified (2) CHF (congestive heart failure): Status: Acute Code(s): I50.9 - Heart failure, unspecified Plan #Hypoxia due to acute exacerbation of heart failure with preserved ejection fraction * On IV Lasix 40 mg twice daily. on 2L of oxygen today which she has been using in the SNF. * 2D echo showed EF of 20% with moderately severe segmental systolic dysfunction and stage 2 diastolic dysfunction. * Titrate oxygen to maintain saturation above 90%. Breathing treatments bronchodilators. * switch to oral lasix today. #Hyperlipidemia: On statin and Zetia #Hypokalemia: K is 3.1. Will replace and trend. #Type 2 diabetes mellitus: On insulin sliding scale. Accu-Cheks ACHS. Also on Lantus 32 units in the morning #CAD: * Has known severe triple-vessel disease. She did have cardiac cath at [facility] Done prior to her having her left hip surgery and showed 80% stenosis of the proximal LAD, 99% stenosis of the mid LAD and 99% stenosis of the first diagonal with proximal left circumflex 100% stenosis and 60% proximal RCA stenosis. * 2D echo as above. EF is down to 20% from 51& on echo done at [facility]. * I discussed with Dr Milner supervisor drying and winding bridal stylist sales consultant. Per the discussion, no need for cardiology consult now as there is no benefit in repeating a cath since she has known triple-vessel disease. Per cardiology best is for patient to follow-up at [facility] with cardiothoracic surgery for evaluation for CABG. An appointment was made for patient with [facility] CT surgeons for June 19, 2024. I did discuss with supervisor drying and winding on-call again who stated that it was okay for patient to go to the June 19 appointment and there was no need for urgent transfer to [facility] Now as patient was clinically stable and on room air. I also discussed the need for life vest with supervisor drying and winding bridal stylist sales consultant, Dr Milner. Per discussion, patient can follow up with CT surgery and he did not think patient needed a life vest now. * On aspirin and high intensity statin. Also on metoprolol #History of left ventricular thrombus: On Coumadin. INR today is 3. #Recent left intertrochanteric fracture: S/p repair on 04/13/2025. PT OT on board. Fall precautions. DVT prophylaxis: Already on Coumadin. INR is 3 today Disposition: DC back to long-term facility pending pre-CERT. Medications at Discharge Home Medications acetaminophen 325 mg capsule 650 mg PO Q4H PRN fever or pain 05/07/25 acetaminophen 650 mg rectal suppository [address] Q4H PRN fever or pain 05/07/25 albuterol sulfate 2.5 mg/3 mL (0.083 %) solution for nebulization 2.5 mg continuous nebulization Q8H PRN shortness of breath or wheezing 05/07/25 aluminum-mag hydroxide-simethicone 200 mg-200 mg-20 mg/5 mL oral susp (Antacid M) 30 ml PO Q4H PRN indigestion 05/07/25 amlodipine 5 mg tablet 5 mg PO DAILY 05/07/25 aspirin 81 mg capsule 81 mg PO DAILY 05/07/25 atorvastatin 80 mg tablet (Lipitor) 80 mg PO QHS 05/07/25 bisacodyl 10 mg rectal suppository [address] DAILY PRN constipation 05/07/25 cholecalciferol (vitamin D3) 1,250 mcg (50,000 unit) capsule 1,250 mcg PO SA 05/07/25 cyanocobalamin (vitamin B-12) 1,000 mcg capsule 1,000 mcg PO DAILY 05/07/25 dextrose 40 % oral gel (Glucose Gel) 15 g PO Q15M PRN hypoglycemia 05/07/25 ezetimibe 10 mg tablet 10 mg PO DAILY 05/07/25 glucagon 1 mg injection kit 1 mg IM PRN PRN hypoglycemia 05/07/25 guaifenesin 200 mg/5 mL oral liquid 400 mg PO Q4H PRN cough 05/07/25 hydroxyzine HCl 25 mg tablet 25 mg PO Q6H PRN anxiety 05/07/25 insulin glargine 100 unit/mL (3 mL) subcutaneous pen (Lantus Solostar U-100 Insulin) 32 unit subcut .QAM 05/07/25 insulin lispro 100 unit/mL subcutaneous cartridge 1 unit subcut ACHS sliding scale 05/07/25 insulin lispro 100 unit/mL subcutaneous cartridge 3 unit subcut TID 05/07/25 magnesium hydroxide 400 mg/5 mL oral suspension (Milk of Magnesia) 30 ml PO DAILY PRN constipation 05/07/25 metoprolol tartrate 50 mg tablet 50 mg PO BID 05/07/25 multivitamin with iron-mineral 1 tab PO DAILY 05/07/25 ondansetron HCl 4 mg tablet 4 mg PO Q8H PRN nausea and vomiting 05/07/25 oxycodone 5 mg capsule 5 mg PO Q6H PRN pain 05/07/25 polyethylene glycol 3350 17 gram oral powder packet (Miralax) 17 g PO DAILY 05/07/25 senna-docusate sodium capsule 1 cap PO BID 05/07/25 sodium phosphates 19 gram-7 gram/118 mL enema (Djbva-Qn-Brf Enema) [address] DAILY PRN constipation 05/07/25 warfarin 1 mg tablet 1.5 mg PO DAILY 05/07/25 furosemide 40 mg tablet (Lasix) 40 mg PO BID #60 tabs 05/10/25 lisinopril 2.5 mg tablet 2.5 mg PO DAILY #20 tabs 05/10/25 potassium chloride 20 mEq tablet,extended release(part/cryst) (Klor-Con M) 20 meq PO BID #60 tabs 05/10/25 Hospital Course Operations None Procedures 2-D Echocardiogram Summary of Care Provided Minutes Spent on Discharge: 50 Hospital Course: Patient is a 75-year-old female with a past medical history as outlined was admitted to the ED on 05/07/2025 from a long-term facility with a complaint of shortness of breath. She had been undergoing therapy at the long-term facility after recent left hip fracture for which she had surgery at [facility]. She usually will 2 L of oxygen at the correction but over the last couple of days had increased to 4 L. Patient had a mechanical fall with resultant fracture in [place] and was transferred to [facility] per her request. Apparently during the time of the hospital in [place] she had a cardiac workup which showed severe left current stress-induced ischemia and cardiac cath was done which showed multivessel disease with requirement for CABG. She was sent to [facility] and the plan was for her to have the hip fracture if repaired and then to have revascularization versus CABG subsequently. She had left hip percutaneous pinning on 04/13/2025 and postop course was complicated by bleeding and hypotension and she was also noted to have a small left ventricular thrombus for which she was put on heparin infusion. She sustained a hematoma of the left lower extremity near the operative site and she required transfusion during that admission. She was subsequently placed on Coumadin on account of the small left ventricular thrombus. Plan was for her to follow-up with interventional cardiology versus CT surgery. She was sent to the correction from when she presented to [facility] on 05/07/2025 for the shortness of breath. On admission chest x-ray showed evidence of vascular congestion and proBNP was elevated at 10,583. She was admitted to be managed for hypoxia due to acute on chronic heart failure. She was diuresed with IV Lasix 40 mg twice daily. Her EF done at the outside hospital prior to her hip surgery showed EF of 51% by repeat echo done here showed EF of 20% with marked left ventricular hypokinesis and akinesia. Her shortness of breath resolved and she felt much better. She was weaned down to her baseline 2 L of oxygen. She was discharged back to her long-term facility on 05/10/2025 on p.o. Lasix 40 mg twice daily with p.o. potassium supplementation. Of note I discussed the drop in her EF from 50% to 20% with the supervisor drying and winding on-call who recommended that since she had had a cardiac cath recently which showed severe multivessel disease and the plan had been for her to have the hip surgery and then follow-up with cardiology on outpatient basis, he recommended that patient could be discharged to follow- up with cardiology and CT surgery at [facility] as scheduled. Patient was seen and examined prior to discharge with her nurse by her bedside. She had no active complaints. She was on her 2 L of oxygen. Review of systems otherwise negative. Labs and vitals reviewed. Home medication reviewed and reconciled. Physical Exam Const alert, oriented x3 and no apparent distress General Appearance: cooperative and comfortable Orientation / Consciousness: awake HEENT normocephalic, head/scalp atraumatic, hearing grossly normal bilaterally, moist oral mucous membranes and oropharynx normal Eyes EOMs intact bilaterally and conjunctivae normal Neck supple and no JVD General: trachea midline Lymph Lymphatic: no lymphedema noted Resp Resp Narrative: mildly diminished breath sounds bibasally, no wheezes or crackles. Remains on 2L of oxygen by nasal canula Auscultation: Negative for rales, rhonchi or wheezes Cardio regular rate, regular rhythm, S1 normal heart sound, S2 normal heart sound and no murmurs GI normal to inspection, nondistended, normoactive bowel sounds, soft to palpation, non-tender and non-distended Extremity normal capillary refill, no clubbing, cyanosis or edema and no calf tenderness General Extremity: no tenderness to palpation of joints or extremities Skin Skin Narrative: intact dressing over surgical site on left hip General Skin Exam: no breakdown Neuro oriented x3, moves all extremities, no focal motor deficits and no sensory deficits noted Sensorium / Orientation: awake and alert Speech: speech normal Motor Exam: general weakness Psych thought process normal, cooperative and affect normal Appearance: appropriate Weight / BMI Weight Weight: 186 lb 4.65 oz Body Mass Index (BMI) 35.2 ABG / Lab / Microbiology Data 05/10/25 05:24 05/10/25 05:24 Laboratory: Laboratory Results - last 24 hr 05/09/25 16:29: POC Glucose 120 H 05/09/25 21:21: POC Glucose 119 H 05/10/25 05:24: WBC 8.3, RBC 3.32 L, Hgb 9.2 L, Hct 30.5 L, MCV 91.9, MCH 27.7, MCHC 30.2 L, RDW Std Deviation 57.8 H, RDW Coeff of Echo 17.1 H, Plt Count 147 L, MPV 9.3, Immature Gran % (Auto) 0.400, Neut % (Auto) 76.8 H, Lymph % (Auto) 13.4 L, Alexander % (Auto) 8.8, Eos % (Auto) 0.2, Baso % (Auto) 0.4, Absolute Neuts (auto) 6.4, Absolute Lymphs (auto) 1.11, Nucleated RBC % 0, PT 32.1 H, INR 3.0, Sodium 138, Potassium 3.1 L, Chloride 99, Carbon Dioxide 31.0, Anion Gap 8, BUN 17, C reatinine 0.60 L, Estim Creat Clear Calc 60.85, Est GFR (MDRD) Non-Af 94, B UN/Creatinine Ratio 28.4 H, Glucose 87, Calcium 8.0 05/10/25 08:30: POC Glucose 88 05/10/25 11:30: POC Glucose 181 H Microbiology: Microbiology 05/07/25 08:50 Mucosa - Nose SARS-CoV-2, Influenza & RSV (PCR) - Final D/C Instructions Discharge Activity: Return to Normal Activity Weight Bearing Status: Weight bearing as tolerated Call your doctor if you observe: Fever of 101 or Higher, Shortness of breath, Dizziness, Swelling in the ankles and Chest pain DC O2, CPAP, BIPAP Needs Home O2 Discharge instructions: Yes Type of respiratory needs?: Oxygen Oxygen frequency: Continuous Continuous oxygen liters per minute: 2 DC home with Oxygen: Yes Home O2 MD Review: I have reviewed the oxygen testing, and the patient qualifies for home oxygen equipment and portability. The patient is mobile in the home and the community. Meaningful Use Info Meaningful Use Meaningful Use Diagnoses (Choose all that apply): CHF CHF NGOZI/ARB ordered at discharge?: Yes Documented LVEF (%): 20 Discharge Plan Admission Admit Date/Time: 05/07/25 10:44 Primary Reason for Your Visit: acute exacerbation of heart failure with reduced EF Attending Provider: Mouna Chandra Primary Care Provider: Jillian Tomlinson Consulting Providers: Jatin Kemp Instructions Patient Instructions: Heart Failure Additional Instructions / Restrictions: Please follow-up with your CT surgeon and supervisor drying and winding at [facility] as scheduled. Appointment with CT surgeon made for general refill 2024. Discharge Orders/Prescriptions Prescriptions: New furosemide [Lasix] 40 mg tablet 40 mg PO BID Qty: 60 2RF potassium chloride [Klor-Con M20] 20 mEq tablet,ER particles/crystals 20 meq PO BID Qty: 60 1RF lisinopril 2.5 mg tablet 2.5 mg PO DAILY Qty: 20 1RF Continued ondansetron HCl 4 mg tablet 4 mg PO Q8H PRN (Reason: nausea and vomiting) hydroxyzine HCl 25 mg tablet 25 mg PO Q6H PRN (Reason: anxiety) albuterol sulfate 2.5 mg /3 mL (0.083 %) solution for nebulization 2.5 mg continuous nebulization Q8H PRN (Reason: shortness of breath or wheezing) senna-docusate sodium Capsule 1 cap PO BID warfarin 1 mg tablet 1.5 mg PO DAILY metoprolol tartrate 50 mg tablet 50 mg PO BID atorvastatin [Lipitor] 80 mg tablet 80 mg PO QHS insulin lispro 100 unit/mL cartridge 3 unit subcut TID insulin lispro 100 unit/mL cartridge 1 unit subcut ACHS insulin glargine [Lantus Solostar U-100 Insulin] 100 unit/mL (3 mL) insulin pen 32 unit subcut .QAM cyanocobalamin (vitamin B-12) 1,000 mcg capsule 1,000 mcg PO DAILY polyethylene glycol 3350 [Miralax] 17 gram powder in packet 17 g PO DAILY multivitamin with iron-mineral Tablet 1 tab PO DAILY ezetimibe 10 mg tablet 10 mg PO DAILY cholecalciferol (vitamin D3) 1,250 mcg (50,000 unit) capsule 1,250 mcg PO SA aspirin 81 mg capsule 81 mg PO DAILY amlodipine 5 mg tablet 5 mg PO DAILY oxycodone 5 mg capsule 5 mg PO Q6H PRN (Reason: pain) alum-mag hydroxide-simeth [Antacid M] 200-200-20 mg/5 mL suspension 30 ml PO Q4H PRN (Reason: indigestion) guaifenesin 200 mg/5 mL liquid 400 mg PO Q4H PRN (Reason: cough) magnesium hydroxide [Milk of Magnesia] 400 mg/5 mL suspension 30 ml PO DAILY PRN (Reason: constipation) dextrose [Glucose Gel] 40 % gel 15 g PO Q15M PRN (Reason: hypoglycemia) Rx Instructions: until symptoms of low blood sugar are controlled glucagon 1 mg kit 1 mg IM PRN PRN (Reason: hypoglycemia) acetaminophen 325 mg capsule 650 mg PO Q4H PRN (Reason: fever or pain) bisacodyl 10 mg suppository [address] DAILY PRN (Reason: constipation) Hqjfc-Ox-Sds Enema 19-7 gram/118 mL enema [address] DAILY PRN (Reason: constipation) acetaminophen 650 mg suppository [address] Q4H PRN (Reason: fever or pain) Discontinued acetaminophen 500 mg capsule 1,000 mg PO Q6H PRN (Reason: fever or pain) furosemide [Lasix] 20 mg tablet 20 mg PO DAILY Referrals / Follow Up: Jillian Tomlinson MD [Primary Care Provider, Geriatrics] - Within 1 Week Disposition Disposition (needs filled in before D/C Order can be placed): [facility] Facility Charges/Coding Visit Charges Inpatient E&M: 30206 Disch Hosp >30min
--- NOTE | 2025-05-10 16:21 | CASEMGMT ---
Discharge Planning Discharge orders and transport time sent via [facility] to [facility]. Physicians will transport pt by wheelchair at 7:30p. Both Physicians and Nursing aware that pt must be admitted prior to midnight tonight or will have to wait until new precert is obtained. Nursing, SW, pt, and her daughter (Do) updated. Iesha Morales DC Planning Asst.
[2025-05-10] MEDS: Albuterol 2.5 MG/3 ML VIAL.NEB. INHALATION (16:52)
[2025-05-10] MEDS: Warfarin (PBKC) 2.5 MG Tablet PO (16:57)
--- NOTE | 2025-05-10 18:38 | NURSING ---
Report called to [facility] to Nurse Piedad for pt to be d/c back this evening.
[2025-05-10] MEDS: hydrOXYzine PAM 25 MG Capsule PO (22:19)
== END 2025-05-10 23:10 | disposition skilled nursing facility (03) | DRG 291 ==
LOC: ED 10:49 → PCU 11:12
PROVIDERS: Admitting Provider Internal Medicine; Emergency Provider Emergency Medicine; PCP Internal Medicine; Visit Provider Student in an Organized Health Care Education/Training Program
DX: I11.0 Hypertensive heart disease with heart failure (principal); I50.23 Acute on chronic systolic (congestive) heart failure; I51.3 Intracardiac thrombosis, not elsewhere classified; Z79.01 Long term (current) use of anticoagulants; E11.65 Type 2 diabetes mellitus with hyperglycemia; I25.10 Atherosclerotic heart disease of native coronary artery without angina pectoris; E78.5 Hyperlipidemia, unspecified; E87.6 Hypokalemia; Z79.4 Long term (current) use of insulin; Z99.81 Dependence on supplemental oxygen; Z79.82 Long term (current) use of aspirin; Z79.899 Other long term (current) drug therapy
CPT/HCPCS: 36415; 71045; 80048; 82962; 83880; 85025; 85610; 87631; 93005; 93306; 94640; 94668; 97163; 97167; 97530; 97802; 99285; Q9957; A4216; C8929; J1938

== ENCOUNTER 2025-05-22 13:46 | Emergency (ER) | payer MEDICARE, OTHER, SELFPAY ==
[2025-05-22 13:47] VITALS: BP 115/56; PULSE 104; RESP 18; TEMP 36.6; O2SAT 96; BMI 34.7
[2025-05-22 13:56] VITALS: BP 115/56; PULSE 102; RESP 18; TEMP 36.6; O2SAT 94
--- NOTE | 2025-05-22 14:20 | EDS_ITS ---
HPI History of Present Illness Chief Complaint: Wound Informant: patient, family, EMS and SNF Narrative Narrative: 75-year-old female presenting to the emergency room requesting transfer to [facility]. Apparently the patient had a left hip surgery by Dr. Myles on 14 April of this year. She was in the hospital for about 8 days following the surgery due to coagulation and bleeding issues. She is reportedly on warfarin due to a clot in her heart/heart disease. She had a wound VAC during her hospitalization because of the bleeding. She reportedly has followed up with Dr. Myles and was found to have surgical wound dehiscence and an infection and is on meropenem through PICC line. She also had a recent hospitalization here for CHF diuresed. She has triple-vessel disease and is supposed to have a outpatient cardiothoracic evaluation in June for potential CABG. It was reported by the patient and their family that the wound has opened up more and that she was to be transferred to [facility]. However there apparently was no available ambulances to take her to [facility] So that the patient was brought to [place] emergency department. Patient notes that the wound continues to bleed. She denies any fevers. She states that her breathing has been much better since her hospitalization and diuresis. [facility] Medical History Dyspnea CHF (congestive heart failure) Epistaxis, recurrent Cataract Myocardial infarct Diabetes Osteoarthritis Sleep apnea Hypertension Home Medications ?Medication ?Instructions ?Recorded ?Last Taken ?Type acetaminophen 325 mg capsule 650 mg PO Q4H PRN fever o r pain 05/07/25 Unknown History acetaminophen 650 mg rectal 650 mg LA Q4H PRN fever or pain 05/07/25 Unknown History suppository albuterol sulfate 2.5 mg/3 mL 2.5 mg continuous nebuli zation Q8H 05/07/25 Unknown History (0.083 %) solution for nebulization PRN shortness of b reath or wheezing aluminum-mag hydroxide-simethicone 30 ml PO Q4H PRN in digestion 05/07/25 Unknown History 200 mg-200 mg-20 mg/5 mL oral susp (Antacid M) amlodipine 5 mg tablet 5 mg PO DAILY HTN 05/07/25 U nknown History aspirin 81 mg capsule 81 mg PO DAILY HEART HEALTH 05/07/25 Unknown History atorvastatin 80 mg tablet (Lipitor) 80 mg PO QHS HYPER LIPIDEMIA 05/07/25 Unknown History bisacodyl 10 mg rectal suppository 10 mg LA DAILY PRN constipation 05/07/25 Unknown History cholecalciferol (vitamin D3) 1,250 1,250 mcg PO SA SUP PLEMENT 05/07/25 Unknown History mcg (50,000 unit) capsule cyanocobalamin (vitamin B-12) 1,000 mcg PO DAILY SUPPL EMENT 05/07/25 Unknown History 1,000 mcg capsule dextrose 40 % oral gel (Glucose 15 g PO Q15M PRN hypog lycemia 05/07/25 Unknown History Gel) ezetimibe 10 mg tablet 10 mg PO DAILY HYPERLIPIDEM 05/07/25 Unknown History glucagon 1 mg injection kit 1 mg IM PRN PRN hypoglycem ia 05/07/25 Unknown History guaifenesin 200 mg/5 mL oral liquid 400 mg PO Q4H PRN cough 05/07/25 Unknown History hydroxyzine HCl 25 mg tablet 25 mg PO Q6H PRN anxiety 05/07/25 05/07/25 History insulin glargine 100 unit/mL (3 32 unit subcut DAILY D M 05/07/25 Unknown History mL) subcutaneous pen (Lantus Solostar U-100 Insulin) insulin lispro 100 unit/mL See Protocol subcut TID DM 05/07/25 Unknown History subcutaneous cartridge magnesium hydroxide 400 mg/5 mL 30 ml PO DAILY PRN con stipation 05/07/25 Unknown History oral suspension (Milk of Magnesia) metoprolol tartrate 50 mg tablet 50 mg PO BID HTN 04/16 09/06 Unknown History multivitamin with iron-mineral 1 tab PO DAILY SUPPLEME NT 05/07/25 Unknown History ondansetron HCl 4 mg tablet 4 mg PO Q8H PRN nausea and vomiting 05/07/25 Unknown History oxycodone 5 mg capsule 5 mg PO Q6H PRN pain 5 Unknown History senna-docusate sodium capsule 1 cap PO BID CONSTIPATIO N 05/07/25 Unknown History warfarin 1 mg tablet 1.5 mg PO DAILY 05/07/25 Unk nown History furosemide 40 mg tablet (Lasix) 40 mg PO BID EDEMA #60 tabs 05/10/25 Unknown Rx lisinopril 2.5 mg tablet 2.5 mg PO DAILY HTN #20 tabs 05/10/25 Unknown Rx potassium chloride 20 mEq 20 meq PO BID HYPOKALEMIA #6 0 tabs 05/10/25 Unknown Rx tablet,extended release(part/cryst) (Klor-Con M) Saccharomyces boulardii 250 mg 250 mg PO BID CONSTIPAT ION 05/22/25 Unknown History capsule acetaminophen 500 mg capsule 1,000 mg PO Q6H PRN pain 05/22/25 Unknown History lactulose 10 gram/15 mL oral 30 ml PO BID CONSTIPATION 05/22/25 Unknown History solution meropenem 500 mg intravenous 500 mg IV Q8H WOUND INFEC TION 05/22/25 Unknown History solution sodium phosphates 19 gram-7 118 ml LA PRN CONSTIPATION 05/22/25 Unknown History gram/118 mL enema (Fleet Enema) Allergy/AdvReac Type Severity Reaction Status Date / Time Penicillins AdvReac Mild Nausea/Vom/ Verified 05/22/25 13:53 Diarrhea Family History Sister Bipolar disease, chronic x2 sister Surgical History History of cholecystectomy History of hip surgery Social History Smoking Status: Never smoker ROS ROS ED Constitutional Constitutional ED: Denies chills, fever(s) or weight loss Eyes Eyes: Denies change in vision or diplopia ENT ENT ED: Denies ear pain, rhinorrhea or sore throat Cardiovascular Cardiovascular: Denies chest pain, orthopnea, palpitations or racing heartbeat Respiratory/Chest Respiratory/Chest: Denies cough, dyspnea or orthopnea Gastrointestinal Gastrointestinal: Denies abdominal pain, diarrhea, nausea or vomiting Genitourinary Genitourinary ED: Denies dysuria, hematuria or urinary frequency Musculoskeletal Musculoskeletal: Denies arthralgias or myalgias Integumentary Reports other Details: Surgical wound dehiscence and bleeding ; Denies abscess or rash Neurologic Neurologic: Denies headache(s) or weakness Psychiatric Psychiatric: Denies anxiety, depression, suicidal ideation or suicidal thoughts Endocrine Endocrinology: Denies polydipsia, polyphagia or polyuria Allergic/Immunologic Allergic/Immunologic ED: Denies mouth swelling, tongue swelling or urticaria EXAM Physical Exam Const Vital Signs: 05/22/25 13:47 05/22/25 13:56 05/22/25 14:54 Temperature 98 F 98 F 98 F Temperature Source Oral Oral Oral Pulse Rate 104 H 102 H 96 Respiratory Rate 18 18 18 Blood Pressure 115/56 L 115/56 L 103/63 Blood Pressure Mean 75 75 76 Pulse Ox 96 94 94 Oxygen Delivery Method Room Air Room Air Room Air Positive well nourished, well developed and obese General Appearance ED: well developed and NAD Nutritional Appearance: obese HEENT Reports normocephalic, head/scalp atraumatic and moist mucous membranes Eyes PERRL and EOMs intact bilaterally Neck no lymphadenopathy, supple and no JVD Resp normal respiratory effort and clear to auscultation bilaterally Cardio regular rate, regular rhythm and no murmurs GI normal to inspection, nondistended, normoactive bowel sounds and non-tender Palpation: soft Back/Spine no CVA tenderness and normal ROM Extremity Extremity Narrative: There is a left hip surgical wound. The inferior most centimeter half to 2 cm has dehisced with edematous subcutaneous tissue appearing coming from the wound. There is dark red blood on the dressing. There were at 1 point Steri-Strips but the Steri-Strips are not attached to the skin and are wet from the drainage. I do not appreciate significant erythema. I do not appreciate a foul smell or purulence from the wound. General Extremety ED: Negative for edema General Extremity: Negative for edema Neuro oriented x3 and CN's II-XII intact bilaterally Sensorium / Orientation: alert Motor Exam: strength 5/5 throughout Psych mental status grossly normal Mood & Affect: Negative for depressed or tearful Skin no rashes or lesions noted MDM MDM MDM Narrative Medical decision making narrative: Differential diagnosis includes but not limited to anemia sepsis coagulopathy wound dehiscence abscess My interpretation of plain film of the x-ray is no obvious osteomyelitis. Small area of gas in the subcutaneous tissue near the incision site. White count is 8.9 hemoglobin 10.8 INR is 1.4 glucose 170 creatinine 0.51 normal LFTs. I [facility] with [facility]. I also spoke with Dr. Fernandes from the emergency department. The patient was supposed to be sent to the emergency department there for evaluation by orthopedics. We will work on getting her a ambulance ride there. History & Record Review Discussion w/independent historian: Patient and Family Lab Data Attestation: I reviewed the patient's lab results. Labs: Laboratory Results - last 24 hr 05/22/25 14:20 WBC 8.9 RBC 4.08 L Hgb 10.8 L Hct 36.3 L MCV 89.0 MCH 26.5 L MCHC 29.8 L RDW Std Deviation 55.2 H RDW Coeff of Echo 17.1 H Plt Count 286 MPV 8.7 Immature Gran % (Auto) 0.600 Neut % (Auto) 73.5 H Lymph % (Auto) 18.0 L Estill % (Auto) 7.1 Eos % (Auto) 0.5 Baso % (Auto) 0.3 Absolute Neuts (auto) 6.5 Absolute Lymphs (auto) 1.60 Nucleated RBC % 0 PT 17.7 H INR 1.4 APTT 28.1 Sodium 139 Potassium 4.0 Chloride 104 Carbon Dioxide 28.0 Anion Gap 7 BUN 15 Creatinine 0.51 L Estim Creat Clear Calc 60.46 Est GFR (MDRD) Non-Af 98 BUN/Creatinine Ratio 30.1 H Glucose 170 H Calcium 8.7 Total Bilirubin 0.64 AST 23 ALT 14 Alkaline Phosphatase 81 Total Protein 5.9 Albumin 3.1 L Globulin 2.8 Albumin/Globulin Ratio 1.1 Radiography Diagnostic Testing: Clinical Impression(s) from Imaging Studies Hip/Pelvis X-Ray 05/22/25 14:45 IMPRESSION: Soft tissue infection. No acute osseous abnormality. Reading Location: [facility] Management Discussion w/another healthcare provider: [employer] ([facility] ED/transfer line) Discharge Plan Triage Chief Complaint: Wound ED Provider: Flaco Samayoa Dx/Rx/DC Orders Clinical Impression: Dehiscence of surgical wound, Anticoagulated on Coumadin Prescriptions: No Action ondansetron HCl 4 mg tablet 4 mg PO Q8H PRN (Reason: nausea and vomiting) hydroxyzine HCl 25 mg tablet 25 mg PO Q6H PRN (Reason: anxiety) albuterol sulfate 2.5 mg /3 mL (0.083 %) solution for nebulization 2.5 mg continuous nebulization Q8H PRN (Reason: shortness of breath or wheezing) senna-docusate sodium Capsule 1 cap PO BID warfarin 1 mg tablet 1.5 mg PO DAILY metoprolol tartrate 50 mg tablet 50 mg PO BID atorvastatin [Lipitor] 80 mg tablet 80 mg PO QHS insulin lispro 100 unit/mL cartridge See Protocol subcut TID Protocol: 6. Sliding Scale Insulin Custom Condition: 111-150 Dose/Route: 1 Instruction: AC Condition: 151-200 Dose/Route: 3 Instruction: AC Condition: 201-250 Dose/Route: 6 Instruction: AC Condition: 251-300 Dose/Route: 9 Instruction: AC Condition: 301-350 Dose/Route: 12 Instruction: AC Condition: 351-400 Dose/Route: 15 Instruction: AC Condition: >400 Dose/Route: 15 Instruction: AC Protocol Text: Custom Sliding Scale insulin glargine [Lantus Solostar U-100 Insulin] 100 unit/mL (3 mL) insulin pen 32 unit subcut DAILY Patient Comments: AM cyanocobalamin (vitamin B-12) 1,000 mcg capsule 1,000 mcg PO DAILY multivitamin with iron-mineral Tablet 1 tab PO DAILY ezetimibe 10 mg tablet 10 mg PO DAILY cholecalciferol (vitamin D3) 1,250 mcg (50,000 unit) capsule 1,250 mcg PO SA aspirin 81 mg capsule 81 mg PO DAILY amlodipine 5 mg tablet 5 mg PO DAILY oxycodone 5 mg capsule 5 mg PO Q6H PRN (Reason: pain) Patient Comments: USE UNTIL 05/24/25 alum-mag hydroxide-simeth [Antacid M] 200-200-20 mg/5 mL suspension 30 ml PO Q4H PRN (Reason: indigestion) guaifenesin 200 mg/5 mL liquid 400 mg PO Q4H PRN (Reason: cough) magnesium hydroxide [Milk of Magnesia] 400 mg/5 mL suspension 30 ml PO DAILY PRN (Reason: constipation) dextrose [Glucose Gel] 40 % gel 15 g PO Q15M PRN (Reason: hypoglycemia) Rx Instructions: until symptoms of low blood sugar are controlled glucagon 1 mg kit 1 mg IM PRN PRN (Reason: hypoglycemia) acetaminophen 325 mg capsule 650 mg PO Q4H PRN (Reason: fever or pain) bisacodyl 10 mg suppository 10 mg LA DAILY PRN (Reason: constipation) acetaminophen 650 mg suppository 650 mg LA Q4H PRN (Reason: fever or pain) furosemide [Lasix] 40 mg tablet 40 mg PO BID Qty: 60 2RF potassium chloride [Klor-Con M20] 20 mEq tablet,ER particles/crystals 20 meq PO BID Qty: 60 1RF lisinopril 2.5 mg tablet 2.5 mg PO DAILY Qty: 20 1RF acetaminophen 500 mg capsule 1,000 mg PO Q6H PRN (Reason: pain) Fleet Enema 19-7 gram/118 mL enema 118 ml LA PRN lactulose 10 gram/15 mL solution 30 ml PO BID meropenem 500 mg recon soln 500 mg IV Q8H Patient Comments: USE INTIL 06/01/25 Saccharomyces boulardii 250 mg capsule 250 mg PO BID Primary Care Provider: Jillian Tomlinson Referrals: Jillian Tomlinson MD [Primary Care Provider, Geriatrics] Print Language: Divehi Disposition Disposition: Acute Care Hospital Discharge Location: [facility]
[2025-05-22 14:42] LABS: Hematocrit 36.3 % (37-47); Hemoglobin 10.8 g/dL (12.0-15.0); Immature Granulocytes Count 0.050 X10^3/uL (0.0-0.0); Mean Corp Hgb Conc 29.8 g/dL (32-36); Mean Corpuscular Volume 89.0 fL (81-99); Mean Platelet Vol. 8.7 fl (6.2-12.0); NRBC Flagged by Analyzer 0 % (0-5); Platelet Count 286 K/mm3 (150-450); RBC Distribution Width CV 17.1 % (11.6-14.6); RBC Distribution Width SD 55.2 fl (35.1-43.9); Red Blood Count 4.08 M/mm3 (4.2-5.4); White Blood Count 8.9 K/mm3 (4.4-11.0)
--- NOTE | 2025-05-22 14:45 | RAD_ITS ---
PROCEDURE: HIP, UNI W/ PELVIS 2-3 VIEWS 05/22/2025 REASON FOR EXAM: INFECTION HIP ORIF TECHNIQUE: Procedure Code: [facility] Modality: DX Procedure: HIP, UNI W/ PELVIS 2-3 VIEWS Laterality: FINDINGS: 3 left femoral neck fixation screws. No evidence of acute fracture or dislocation. [id number] degenerative changes of the bilateral hips. Degenerative changes of the partially visualized spine. Adjacent to the left hip there is soft tissue air suspicious for infection. No definite osseous erosions. RAD/HIP, UNI W/ Pelvis 2-3 Views IMPRESSION: Soft tissue infection. No acute osseous abnormality. Reading Location: [facility]
[2025-05-22 14:52] LABS: AST(SGOT) 23 U/L (<=31); Alanine Aminotransfer ALT/SGPT 14 U/L (<=34); Albumin, Serum 3.1 g/dL (3.4-4.8); Alkaline Phosphatase 81 U/L (35-104); Anion Gap 7 (5-15); BUN 15 mg/dL (4-19); BUN/Creat Ratio 30.1 RATIO (10-20); Calcium,Total 8.7 mg/dL (7.6-11.0); Carbon Dioxide 28.0 mmol/L (21.0-32.0); Chloride 104 mmol/L (98-108); Estimated Creatinine Clearance 60.46 ml/min (50-250); Globulin 2.8 g/dL (2.2-4.2); Glucose 170 mg/dL (70-99); Potassium 4.0 mmol/L (3.3-5.1); Prothrombin Time (Protime)PT. 17.7 SECONDS (11.7-14.9)
[2025-05-22 14:53] LABS: Partial Thromboplast Time 28.1 Seconds (24.1-36.2)
[2025-05-22 14:54] VITALS: BP 103/63; PULSE 96; RESP 18; TEMP 36.6; O2SAT 94
[2025-05-22 15:46] VITALS: BP 117/70; PULSE 94; O2SAT 95
[2025-05-22 17:00] VITALS: BP 119/66
[2025-05-22 18:38] VITALS: BP 138/74; PULSE 74; RESP 19; TEMP 37; O2SAT 100
== END 2025-05-22 19:01 | disposition short-term general hospital (02) ==
PROVIDERS: Emergency Provider Emergency Medicine; PCP Internal Medicine; Visit Provider Emergency Medicine
DX: T81.31XA Disruption of external operation (surgical) wound, not elsewhere classified, initial encounter (principal); I50.9 Heart failure, unspecified; I11.0 Hypertensive heart disease with heart failure; E11.9 Type 2 diabetes mellitus without complications; Z79.4 Long term (current) use of insulin; X58.XXXA Exposure to other specified factors, initial encounter; E66.9 Obesity, unspecified; Z68.34 Body mass index [BMI] 34.0-34.9, adult; Z79.01 Long term (current) use of anticoagulants; Z79.82 Long term (current) use of aspirin; Z79.899 Other long term (current) drug therapy
CPT/HCPCS: 73502; 80053; 85025; 85610; 85730; 99285; A4216